=== PATIENT | female | born 1985 | race American Indian/Alaskan Native ===

== ENCOUNTER 2016-11-20 06:17 | Emergency (ER) | payer MEDICAID ==
[2016-11-20] MEDS ORDERED: D5NS 0.2% 1,000 ML IV ONE (06:44)
--- NOTE | 2016-11-20 11:38 | Emergency Department Report ---
HPI - General Chief Complaint: Sickle Cell Crisis Time Seen by Provider: 11/20/16 11:15 - HPI HPI: 31-year-old -[place] female who is well-known to myself and this department presents with complaint of pain all over that she believes is related to sickle cell pain crisis. She says that the pain is worse than usual because she has just started her cycle. She denies any fever, nausea, vomiting but does have a cough and some occasional shortness of breath. No recent travel or sick contacts at home. She denies tobacco abuse. She has a history of hypertension, anemia but has never had an MRIs, CVA, PE/DVT. She's been taking her home pain medications as well as folic Axid and hydroxyurea without any relief. Her primary care doctor is Dr. Torres. ED Past Medical Hx - Past Medical History Previous Medical History?: Yes Hx Hypertension: Yes (Since 2001) Hx Heart Attack/AMI: No Hx Congestive Heart Failure: No Hx Diabetes: No Hx Sickle Cell Disease: Yes Hx Arthritis: Yes Hx Asthma: No Hx COPD: No Hx HIV: No Additional medical history: ANEMIA, multiple port infections - Surgical History Hx Cholecystectomy: Yes Additional Surgical History: , port removed June 2014. PICC line left upper arm (11/19/2014). Most recent port 2 weeks ago her right subclavian. - Social History Smoking Status: Current Every Day Smoker Substance Use Type: Prescribed - Medications Home Medications: Home Medications Medication Instructions Recorded Confirmed Last Taken Type Lisinopril [Zestril TAB] 40 mg PO QDAY 04/01/14 11/01/15 11/01/15 History amLODIPine [Norvasc] 10 mg PO DAILY 04/01/14 11/01/15 11/01/15 History cloNIDine [Catapres] 0.2 mg PO BID 04/01/14 11/01/15 11/01/15 History Folic Acid [Folvite] 1 mg PO DAILY #30 tablet 05/18/15 11/01/15 11/01/15 Rx Lisinopril [Zestril TAB] 40 mg PO QDAY #30 tablet 11/08/15 11/20/16 06/18/16 Rx Folic Acid [Folvite] 1 mg PO DAILY #30 tablet 07/29/16 11/20/16 Unknown Rx Hydroxyurea [Hydrea] 500 mg PO QDAY #60 capsule 07/29/16 11/20/16 Unknown Rx Multivitamin Tab [Multiple Vitamin 1 each PO QDAY tablet 07/29/16 11/20/16 Unknown Rx TAB (Theragran)] Sennosides Tab [Senokot] 17.2 mg PO QHS #20 tablet 07/29/16 11/20/16 Unknown Rx amLODIPine [Norvasc] 10 mg PO QDAY #30 tablet 07/29/16 11/20/16 Unknown Rx cloNIDine [Catapres] 0.2 mg PO Q24HR #20 tablet 07/29/16 11/20/16 Unknown Rx oxyCODONE [Roxicodone] 5 mg PO Q6HR PRN #6 tablet 10/29/16 11/20/16 Unknown Rx Ketorolac [Toradol] 10 mg PO Q6H PRN #20 tablet 11/07/16 11/20/16 Unknown Rx oxyCODONE [Roxicodone] 5 mg PO Q6HR PRN #6 tablet 11/07/16 11/20/16 Unknown Rx oxyCODONE /ACETAMINOPHEN [Percocet 1 tab PO Q6HR PRN #12 tablet 11/20/16 Unknown Rx 5/325] ED Review of Systems ROS: Stated complaint: SICKLE CELL PAIN Other details as noted in HPI Comment: All other systems reviewed and negative Constitutional: denies: chills, fever Eyes: denies: eye pain, eye discharge, vision change ENT: denies: ear pain, throat pain Respiratory: denies: cough, shortness of breath, wheezing Cardiovascular: denies: chest pain, palpitations Gastrointestinal: denies: abdominal pain, nausea, diarrhea Genitourinary: denies: urgency, dysuria, discharge Musculoskeletal: back pain, arthralgia, myalgia. denies: joint swelling Skin: denies: rash, lesions Neurological: denies: headache, weakness, paresthesias Physical Exam - Physical Exam Vital Signs: Vital Signs 11/20/16 06:41 Temperature 98.8 F Pulse Rate 83 Blood Pressure 171/93 O2 Sat by Pulse 97 Oximetry Physical Exam: GENERAL: The patient is well-developed well-nourished. HEENT: Normocephalic. Atraumatic. Extraocular motions are intact. Patient has moist mucous membranes. Pupils equal reactive to light bilaterally. NECK: Supple. Trachea is midline. CHEST/LUNGS: Clear to auscultation. There is no respiratory distress noted. HEART/CARDIOVASCULAR: Regular. There is no tachycardia. There is no gallop rub or murmur. ABDOMEN: Abdomen is soft, nontender. Patient has normal bowel sounds. There is no abdominal distention. SKIN: There is no rash. There is no edema. There is no diaphoresis. NEURO: The patient is awake, alert, and oriented. The patient is cooperative. The patient has no focal neurologic deficits. The patient has normal speech. MUSCULOSKELETAL: There is no tenderness or deformity. There is no limitation range of motion. There is no evidence of acute injury. ED Course Vital Signs 11/20/16 06:41 Temperature 98.8 F Pulse Rate 83 Blood Pressure 171/93 O2 Sat by Pulse 97 Oximetry ED Medical Decision Making - Lab Data Result diagrams: 11/20/16 14:40 11/20/16 11:47 - Medical Decision Making 31-year-old female presents to the emergency department with generalized body aches and pains that she feels is consistent with her previous sickle cell pain crisis. Patient's vital signs the been stable throughout her ED course including being afebrile. She did have some hypertension but that came down with some Catapres and pain control. Patient's labs show a hemoglobin of 8, a white blood cell count of 16,000, and a reticulocyte count of 20. While these labs do not appear to be normal, they are consistent with the patient's previous visits. Patient's metabolic panel did not show anything significant. Patient does not appear to have any emergent condition such as chest crisis or aplastic anemia. I spoke with the patient regarding her labs but the patient says that she is feeling much better and asking for discharge home. She has been encouraged to follow up with Dr. Torres but to return to the emergency department with any worsening of her symptoms or any acute distress. - Differential Diagnosis sickle cell pain crisis, chest crisis, fibromyalgia Critical Care Time: No Critical care attestation.: If time is entered above; I have spent that time in minutes in the direct care of this critically ill patient, excluding procedure time. ED Disposition Clinical Impression: Sickle cell pain crisis Hypertension Qualifiers: Hypertension type: essential hypertension Qualified Code(s): I10 - Essential ( primary) hypertension Disposition: DISCHARGED TO HOME OR SELFCARE Is pt being admited?: No Condition: Stable Instructions: Hypertension (ED), Sickle Cell Crisis (ED) Additional Instructions: Please follow-up with Dr. Torres or Dr. Watts, whoever you consider to be your primary care doctor or trauma manager. Return to the emergency department with any worsening of your symptoms or any acute distress. You've been prescribed a medication that is sedating. Therefore this medication cannot be mixed with alcohol, or taken prior to driving, working, or being responsible for children. Try to stay away from foods are high in salt and caffeinated products to assist with your blood pressure. Keep a blood pressure log. Continue with her normally prescribed medications. Prescriptions: oxyCODONE /ACETAMINOPHEN [Percocet 5/325] 1 tab PO Q6HR PRN #12 tablet PRN Reason: Pain Referrals: SEMAJ WATTS DO [Primary Care Provider] - 3-5 Days Time of Disposition: 15:42
[2016-11-20] MEDS ORDERED: BENADRYL ONE (12:00)
[2016-11-20] MEDS ORDERED: DILAUDID IV ONE ×2 (12:00→12:50)
--- NOTE | 2016-11-20 12:04 | XRay Report ---
PORTABLE CHEST INDICATION: Shortness of breath. COMPARISON: 11/07/2016 FINDINGS: Portable, frontal chest radiograph demonstrates poorer inspiration with increased bronchovascular crowding. Cardiomegaly/exaggerated cardiomediastinal silhouette. Stable right chest port tip about the cavoatrial junction. No large pleural effusions. Stable bones with subtle humeral head sclerosis suspected without collapse on the right. 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 Please correlate. Thank you for the opportunity to participate in this patient's care.
[2016-11-20 12:17] LABS: Anion Gap 20 mmol/L; Blood Urea Nitrogen 9 mg/dL (7-17); Calcium 8.9 mg/dL (8.4-10.2); Carbon Dioxide 21 mmol/L (22-30); Chloride 101.7 mmol/L (98-107); Glucose 93 mg/dL (65-100); Potassium 4.5 mmol/L (3.6-5.0); Sodium 138 mmol/L (137-145)
[2016-11-20] MEDS ORDERED: BENADRYL IV ONE (12:48)
[2016-11-20] MEDS ORDERED: CATAPRES PO ONE (13:00)
[2016-11-20] MEDS ORDERED: CATAPRES ONE (13:28)
[2016-11-20 15:02] LABS: Hematocrit 23.8 % (30.3-42.9); Mean Corpuscular HGB Conc 34 % (30-34); Mean Corpuscular Hemoglobin 32 pg (28-32); Mean Corpuscular Volume 95 fl (79-97); Platelet Count 459 K/mm3 (140-440); Red Blood Count 2.52 M/mm3 (3.65-5.03); White Blood Count 16.1 K/mm3 (4.5-11.0)
[2016-11-20 15:10] LABS: Red Cell Distribution Width 24.4 % (13.2-15.2)
[2016-11-20 15:26] LABS: Reticulocyte % 20.11 % (0.78-2.58)
[2016-11-20 15:42] VITALS: BP 162/88
[2016-11-20] MEDS ORDERED: FLUSH HEPARIN IV ONE ×2 (15:45→16:09)
[2016-11-20 16:20] LABS: Basophils % (Manual) 0 % (0.0-1.8); Blastocytes % (Manual) 0 %
[2016-11-20 16:21] LABS: Anisocytosis 1+; Diff Status Complete; Elliptocytes 1+; Large Platelets Few; Polychromasia 1+; Sickle Cells Few
== END 2016-11-20 16:11 | disposition home or self-care (01) ==
LOC: ED 06:17
DX: D57.00 Hb-SS disease with crisis, unspecified (principal); I10 Essential (primary) hypertension; M19.90 Unspecified osteoarthritis, unspecified site; D64.9 Anemia, unspecified; F17.200 Nicotine dependence, unspecified, uncomplicated
CPT/HCPCS: 36415; 71010; 80048; 85007; 85025; 85045; 96361; 96374; 96375; 96376; 99284; J1170; J1200; J1642

== ENCOUNTER 2016-11-24 07:30 | Emergency (ER) | payer MEDICAID ==
[2016-11-24] MEDS ORDERED: D5NS 0.2% 1,000 ML IV ONE (08:15)
[2016-11-24] MEDS ORDERED: BENADRYL IV ONE (14:26)
[2016-11-24] MEDS ORDERED: DILAUDID IV ONE ×4 (14:26→16:19)
[2016-11-24] MEDS ORDERED: ZOFRAN IV ONE (14:27)
[2016-11-24 15:26] VITALS: BP 129/74
[2016-11-24 15:52] LABS: Basophils % (Auto) 1.4 % (0.0-1.8); Hemoglobin 8.4 gm/dl (10.1-14.3); Mean Corpuscular HGB Conc 34 % (30-34); Mean Corpuscular Hemoglobin 31 pg (28-32); Mean Corpuscular Volume 93 fl (79-97); Platelet Count 418 K/mm3 (140-440); Red Blood Count 2.69 M/mm3 (3.65-5.03); Reticulocyte % 13.65 % (0.78-2.58); White Blood Count 16.3 K/mm3 (4.5-11.0)
[2016-11-24 15:53] LABS: Red Cell Distribution Width 20.1 % (13.2-15.2)
--- NOTE | 2016-11-24 16:59 | Emergency Department Report ---
HPI - General Chief Complaint: Sickle Cell Crisis Time Seen by Provider: 11/24/16 15:05 - HPI HPI: Chief complaint: Sickle cell crisis pain HPI: Patient who is well-known to this emergency department complains of sickle cell crisis pain to her lower back and legs that is typical of her sickle cell crisis that started yesterday. Patient denies any other symptoms. No cough or cold fever or nausea vomiting or diarrhea. Patient states she took a Percocet 10 without relief at home. Mode of arrival: private car Source: Patient old chart Began: Yesterday Duration: One day Context: See above Quality: Typical crisis pain Severity: 10 out of 10 Improved with: No improvement with Percocet Worsened with: Nothing Associated signs and symptoms: See above ED Past Medical Hx - Past Medical History Previous Medical History?: Yes Hx Hypertension: Yes (Since 2001) Hx Sickle Cell Disease: Yes Hx Arthritis: Yes Additional medical history: ANEMIA, multiple port infections - Surgical History Past Surgical History?: Yes Hx Cholecystectomy: Yes Additional Surgical History: , port removed June 2014. PICC line left upper arm (11/19/2014). Most recent port 2 weeks ago her right subclavian. - Social History Smoking Status: Never Smoker Substance Use Type: Prescribed - Medications Home Medications: Home Medications Medication Instructions Recorded Confirmed Last Taken Type Lisinopril [Zestril TAB] 40 mg PO QDAY 04/01/14 11/01/15 11/01/15 History amLODIPine [Norvasc] 10 mg PO DAILY 04/01/14 11/01/15 11/01/15 History cloNIDine [Catapres] 0.2 mg PO BID 04/01/14 11/01/15 11/01/15 History Folic Acid [Folvite] 1 mg PO DAILY #30 tablet 05/18/15 11/01/15 11/01/15 Rx Lisinopril [Zestril TAB] 40 mg PO QDAY #30 tablet 11/08/15 11/20/16 06/18/16 Rx Folic Acid [Folvite] 1 mg PO DAILY #30 tablet 07/29/16 11/20/16 Unknown Rx Hydroxyurea [Hydrea] 500 mg PO QDAY #60 capsule 07/29/16 11/20/16 Unknown Rx Multivitamin Tab [Multiple Vitamin 1 each PO QDAY tablet 07/29/16 11/20/16 Unknown Rx TAB (Theragran)] Sennosides Tab [Senokot] 17.2 mg PO QHS #20 tablet 07/29/16 11/20/16 Unknown Rx amLODIPine [Norvasc] 10 mg PO QDAY #30 tablet 07/29/16 11/20/16 Unknown Rx cloNIDine [Catapres] 0.2 mg PO Q24HR #20 tablet 07/29/16 11/20/16 Unknown Rx oxyCODONE [Roxicodone] 5 mg PO Q6HR PRN #6 tablet 10/29/16 11/20/16 Unknown Rx Ketorolac [Toradol] 10 mg PO Q6H PRN #20 tablet 11/07/16 11/20/16 Unknown Rx oxyCODONE [Roxicodone] 5 mg PO Q6HR PRN #6 tablet 11/07/16 11/20/16 Unknown Rx oxyCODONE /ACETAMINOPHEN [Percocet 1 tab PO Q6HR PRN #12 tablet 11/20/16 Unknown Rx 5/325] ED Review of Systems ROS: Stated complaint: SICKLE CELL PAIN Other details as noted in HPI ROS Constitutional: No fever ENT: No uri symptoms Cardiovascular: No chest pain Respiratory: No sob or cough GI: No nausea vomiting or diarrhea : No dysuria frequency or urgency, Skin: No rash Neuro: No focal weakness or numbness Psych: No depression Dharmesh/lymph: No edema Physical Exam - Physical Exam Vital Signs: Vital Signs 11/24/16 11/24/16 08:11 14:30 Temperature 98.7 F Pulse Rate 84 Respiratory 18 30 H Rate Blood Pressure 178/99 O2 Sat by Pulse 96 Oximetry Physical Exam: GENERAL: The patient is an obese -[place]alese female no acute distress. HEENT: Normocephalic. Atraumatic. Extraocular motions are intact. Patient has moist mucous membranes. NECK: Supple. No meningitic signs are noted. There is no adenopathy noted. CHEST/LUNGS: Clear to auscultation. There is no respiratory distress noted. Port has been accessed. HEART/CARDIOVASCULAR: Regular. There is no tachycardia. There is no gallop rub or murmur. ABDOMEN: Abdomen is soft, nontender. Patient has normal bowel sounds. There is no abdominal distention. SKIN: There is no rash. There is no edema. There is no diaphoresis. NEURO: The patient is awake, alert, and oriented. The patient is cooperative. The patient has no focal neurologic deficits. The patient has normal speech. MUSCULOSKELETAL: There is no tenderness or deformity. There is no limitation range of motion. There is no evidence of acute injury. ED Course Vital Signs 11/24/16 11/24/16 08:11 14:30 Temperature 98.7 F Pulse Rate 84 Respiratory 18 30 H Rate Blood Pressure 178/99 O2 Sat by Pulse 96 Oximetry - Reevaluation(s) Reevaluation #1: 11/24/16 15:15 Is given 1 mg of Dilaudid IV, 4 mg of Zofran IV and 50 mg of Benadryl IV prior to my evaluation. Patient is still having pain and a second 1 mg of IV Dilaudid was given. Reevaluation #2: 11/24/16 17:00 Patient given a total of 5 mg of Dilaudid with improvement. ED Medical Decision Making - Lab Data Result diagrams: 11/24/16 15:30 Laboratory Tests 11/24/16 15:30 Percent Retic 13.65 H Critical care attestation.: If time is entered above; I have spent that time in minutes in the direct care of this critically ill patient, excluding procedure time. ED Disposition Clinical Impression: Anemia, sickle cell with crisis Disposition: DISCHARGED TO HOME OR SELFCARE Is pt being admited?: No Does the pt Need Aspirin: No Condition: Stable Instructions: Sickle Cell Crisis (ED) Referrals: PRIMARY CARE, [Primary Care Provider] - 3-5 Days Time of Disposition: 17:00
[2016-11-24] MEDS ORDERED: FLUSH HEPARIN IV ONE (17:06)
== END 2016-11-24 17:19 | disposition home or self-care (01) ==
LOC: ED 07:30
DX: D64.9 Anemia, unspecified (principal); D57.00 Hb-SS disease with crisis, unspecified; I10 Essential (primary) hypertension; M19.90 Unspecified osteoarthritis, unspecified site
CPT/HCPCS: 36415; 85025; 85045; 96361; 96374; 96375; 96376; 99283; J1170; J1200; J1642; J2405

== ENCOUNTER 2016-12-02 09:20 | Emergency (ER) | payer MEDICAID ==
[2016-12-02] MEDS ORDERED: D5NS 0.2% 1,000 ML IV ONE (09:32)
--- NOTE | 2016-12-02 09:37 | Emergency Department Report ---
Chief Complaint: Sickle Cell Crisis Stated Complaint: SICKLE CELL CRISIS Time Seen by Provider: 12/02/16 09:25 - HPI History of Present Illness: Patient is a 31-year-old female with sickle cell disease presents for generalized body ache times one day. Patient states yesterday she began has been generalized body aches patient states she took Percocet with no relief. Patient states he has a history of hypertension and takes 3 medications for blood pressure she is out of her lisinopril. Patient denies fevers/chills/deformities S chest pains or shortness of breath/ headache/blurry vision, dizziness - ROS Review of Systems: As noted in HPI - Exam Vital Signs: Vital Signs 12/02/16 09:23 Temperature 98.3 F Pulse Rate 85 Respiratory 19 Rate Blood Pressure 177/103 O2 Sat by Pulse 100 Oximetry Physical Exam: GENERAL: Alert and oriented x3, no apparent distress, Normal Gait, atraumatic. NECK: Supple. Non edematous, No carotid bruits. No lymphadenopathy or thyromegaly. LUNGS: Symetrical with respiration, No wheezing, no rales or crackles, CTAB. HEART: S1, S2 present, regular rate and rhythm without murmur, no rubs, no gallops. ABDOMEN: No organomegaly was noted,Positive bowel sounds, soft, and non- distended. . Nontender to palpation on all Quadrants, NO CVA tenderness. EXTREMITIES/MUSCULOSKELETAL: No cyanosis, clubbing, rash, lesions or edema. Full ROM bilaterally. UE/LE Pulses 2+ bilaterally. LE and UE 5+ strength bilaterally SKIN: Warm and dry, No lesions, No ulceration or induration present. MSE screening note: Focused history and physical exam performed. Due to findings the following was ordered: ED Medical Decision Making - Medical Decision Making Patient is known acute distress. Vital signs stable. Labs ordered. Patient waiting to be sent to the main ED to see ED physician. ED Disposition for MSE Condition: Stable
[2016-12-02 10:11] LABS: Bacteria,Urine 1+ /HPF (Negative); Bilirubin,Urine NEG (Negative); Blood,Urine NEG (Negative); Ketones,Urine NEG (Negative); Leukocyte Esterase,Urine NEG (Negative); Mucus,Urine FEW /HPF; Nitrite,Urine NEG (Negative); WBC,Urine < 1.0 /HPF (0.0-6.0)
[2016-12-02] MEDS ORDERED: FLUSH HEPARIN IV ONE ×2 (12:06→14:53)
[2016-12-02] MEDS ORDERED: TORADOL IV ONE (12:27)
[2016-12-02] MEDS ORDERED: ZOFRAN IV ONE (12:27)
[2016-12-02] MEDS ORDERED: BENADRYL IV ONE (12:27)
[2016-12-02] MEDS ORDERED: DILAUDID IV ONE ×3 (12:27→14:09)
[2016-12-02] MEDS ORDERED: CATAPRES PO ONE (12:28)
[2016-12-02 12:39] LABS: Hematocrit 27.3 % (30.3-42.9); Mean Corpuscular HGB Conc 33 % (30-34); Mean Corpuscular Hemoglobin 32 pg (28-32); Mean Corpuscular Volume 97 fl (79-97); Platelet Count 452 K/mm3 (140-440); Reticulocyte % 19.41 % (0.78-2.58)
[2016-12-02 12:51] LABS: Red Cell Distribution Width 21.9 % (13.2-15.2); White Blood Count 20.6 K/mm3 (4.5-11.0)
--- NOTE | 2016-12-02 12:55 | Emergency Department Report ---
HPI - General Chief Complaint: Sickle Cell Crisis Time Seen by Provider: 12/02/16 12:24 - HPI HPI: Chief complaint: Sickle cell crisis HPI: Patient is a 31-year-old female with a history of sickle cell disease who presents today with sickle cell crisis pain since yesterday. Patient states the pain is intermittent back and legs and knees and is typical of her sickle cell pain should states she took her Percocet without relief. Patient states she also is out of her blood pressure medication but she did take her lisinopril this morning and her clonidine. Patient denies fever, nausea, vomiting or diarrhea. Patient denies chest or abdominal pain. Patient is well- known to me as she is a frequent visitor to the emergency department here. Mode of arrival: private car Source: Patient old chart Began: Yesterday Duration: Continuous Context: See above Quality: Typical sickle cell crisis pain Severity: 9 out of 10 Improved with: No improvement with Percocet Worsened with: Nothing Associated signs and symptoms: See above ED Past Medical Hx - Past Medical History Hx Hypertension: Yes (Since 2001) Hx Sickle Cell Disease: Yes Hx Arthritis: Yes Additional medical history: ANEMIA, multiple port infections - Surgical History Hx Cholecystectomy: Yes Additional Surgical History: , port removed June 2014. PICC line left upper arm (11/19/2014). Most recent port 2 weeks ago her right subclavian. - Social History Smoking Status: Never Smoker Substance Use Type: Prescribed - Medications Home Medications: Home Medications Medication Instructions Recorded Confirmed Last Taken Type Lisinopril [Zestril TAB] 40 mg PO QDAY 04/01/14 11/01/15 11/01/15 History amLODIPine [Norvasc] 10 mg PO DAILY 04/01/14 11/01/15 11/01/15 History cloNIDine [Catapres] 0.2 mg PO BID 04/01/14 11/01/15 11/01/15 History Folic Acid [Folvite] 1 mg PO DAILY #30 tablet 05/18/15 11/01/15 11/01/15 Rx Folic Acid [Folvite] 1 mg PO DAILY #30 tablet 07/29/16 11/20/16 Unknown Rx Hydroxyurea [Hydrea] 500 mg PO QDAY #60 capsule 07/29/16 11/20/16 Unknown Rx Multivitamin Tab [Multiple Vitamin 1 each PO QDAY tablet 07/29/16 11/20/16 Unknown Rx TAB (Theragran)] Sennosides Tab [Senokot] 17.2 mg PO QHS #20 tablet 07/29/16 11/20/16 Unknown Rx oxyCODONE [Roxicodone] 5 mg PO Q6HR PRN #6 tablet 10/29/16 11/20/16 Unknown Rx Ketorolac [Toradol] 10 mg PO Q6H PRN #20 tablet 11/07/16 11/20/16 Unknown Rx oxyCODONE [Roxicodone] 5 mg PO Q6HR PRN #6 tablet 11/07/16 11/20/16 Unknown Rx oxyCODONE /ACETAMINOPHEN [Percocet 1 tab PO Q6HR PRN #12 tablet 11/20/16 Unknown Rx 5/325] Lisinopril [Zestril TAB] 40 mg PO QDAY #30 tablet 12/02/16 Unknown Rx Oxycodone HCl/Acetaminophen 1 each PO Q6HR PRN #14 tablet 12/02/16 Unknown Rx [Percocet 10/325 mg] amLODIPine [Norvasc] 10 mg PO QDAY #30 tablet 12/02/16 Unknown Rx cloNIDine [Catapres] 0.2 mg PO Q24HR #20 tablet 12/02/16 Unknown Rx ED Review of Systems ROS: Stated complaint: SICKLE CELL CRISIS Other details as noted in HPI ROS Constitutional: No fever ENT: No uri symptoms Cardiovascular: No chest pain Respiratory: No sob or cough GI: No nausea vomiting or diarrhea : No dysuria frequency or urgency, Skin: No rash Neuro: No focal weakness or numbness Psych: No depression Dharmesh/lymph: No edema Physical Exam - Physical Exam Vital Signs: Vital Signs 12/02/16 12/02/16 12/02/16 09:23 12:17 12:20 Temperature 98.3 F Pulse Rate 85 Respiratory 19 Rate Blood Pressure 177/103 200/102 Blood Pressure [Left] O2 Sat by Pulse 100 92 98 Oximetry 12/02/16 12/02/16 12:25 12:29 Temperature 98.5 F Pulse Rate 82 Respiratory 14 14 Rate Blood Pressure Blood Pressure 200/107 [Left] O2 Sat by Pulse 98 Oximetry Physical Exam: GENERAL: The patient is an obese -Stateless female some distress. HEENT: Normocephalic. Atraumatic. Extraocular motions are intact. Patient has moist mucous membranes. NECK: Supple. No meningitic signs are noted. There is no adenopathy noted. CHEST/LUNGS: Clear to auscultation. There is no respiratory distress noted. Poor to right anterior chest wall. HEART/CARDIOVASCULAR: Regular. There is no tachycardia. There is no gallop rub or murmur. ABDOMEN: Abdomen is soft, nontender. Patient has normal bowel sounds. There is no abdominal distention. SKIN: There is no rash. There is no edema. There is no diaphoresis. NEURO: The patient is awake, alert, and oriented. The patient is cooperative. The patient has no focal neurologic deficits. The patient has normal speech. MUSCULOSKELETAL: There is no tenderness or deformity. There is no limitation range of motion. There is no evidence of acute injury. ED Course Vital Signs 12/02/16 12/02/16 12/02/16 09:23 12:17 12:20 Temperature 98.3 F Pulse Rate 85 Respiratory 19 Rate Blood Pressure 177/103 200/102 Blood Pressure [Left] O2 Sat by Pulse 100 92 98 Oximetry 12/02/16 12/02/16 12:25 12:29 Temperature 98.5 F Pulse Rate 82 Respiratory 14 14 Rate Blood Pressure Blood Pressure 200/107 [Left] O2 Sat by Pulse 98 Oximetry - Reevaluation(s) Reevaluation #1: 12/02/16 12:56 Patient given IV fluids, 2 mg of IV Dilaudid, 25 mg of IV Benadryl, 4 mg of IV Zofran and 30 mg IV Toradol. Reevaluation #2: 12/02/16 13:55 Patient given 2 more doses of Dilaudid with improvement. ED Medical Decision Making - Lab Data Result diagrams: 12/02/16 09:33 Laboratory Tests 12/02/16 09:33 Percent Retic 19.41 H Critical care attestation.: If time is entered above; I have spent that time in minutes in the direct care of this critically ill patient, excluding procedure time. ED Disposition Clinical Impression: Sickle cell pain crisis Disposition: DISCHARGED TO HOME OR SELFCARE Is pt being admited?: No Does the pt Need Aspirin: No Condition: Stable Instructions: Sickle Cell Crisis (ED) Prescriptions: Lisinopril [Zestril TAB] 40 mg PO QDAY #30 tablet Oxycodone HCl/Acetaminophen [Percocet 10/325 mg] 1 each PO Q6HR PRN #14 tablet PRN Reason: Pain amLODIPine [Norvasc] 10 mg PO QDAY #30 tablet cloNIDine [Catapres] 0.2 mg PO Q24HR #20 tablet Referrals: PRIMARY CARE, [Primary Care Provider] - 3-5 Days Time of Disposition: 13:55
--- NOTE | 2016-12-02 13:17 | Admit Criteria Form ---
Admission Criteria Documentation: SICKLE CELL DISEASE Clinical Indications for Admission to Inpatient Care (Place 'X' for any and all applicable criteria): Admission is indicated for ANY ONE of the following(1)(2)(3)(4)(5): [X]I. Inpatient admission required rather than observation care because of ANY ONE of the following: [ ]a) Altered mental status [ ]b) High fever or infection requiring inpatient admission as indicated by ANY ONE of the following: [ ]A. Appropriate outpatient observation care antimicrobial treatment unavailable, not effective, or not appropriate for infection [ ]B. Documented bacteremia [ ]C. Temp >104.9F (40.5C) (oral) [ ]D. Temp >103.1F (oral) or <96.8F(rectal) that does not respond to all emergency treatment measures [ ]c) Supplemental O2 or respiratory therapy for over 24 h that are performable only in acute inpatient setting [ ]d) Continuous parenteral narcoticsother major pain intervention for >24 h performable only in acute inpatient setting. [ ]e) Exchange transfusion [X ]f) Other condition, treatment or monitoring requiring inpatient admission [ ]II. Acute chest syndrome indicated by ALL of the following (10): [ ]a) New alveolar infiltrate involving at least one lung segment [ ]b) Associated pulmonary symptoms or findings as indicated by ANY ONE of the following: [ ]i) Chest pain [ ]ii) Hypoxemia [ ]iii) Tachypnea/dyspnea [ ]iv) Wheezing [ ]v) Cough [ ]vi) Sputum production [ ]III. Significant hypoxemia or acidosis (more severe than baseline) [ ]IV. Emergent surgery needed (eg, acute cholecystitis) [ ]V. -related complication(11) [ ]. Splenic or hepatic sequestration(12) [ ]VII. Aplastic crisis [ ]VIII. Priapism or other vascular complication(13) [ ]IX. Traumatic hyphema [A](14) [ ]X. Underlying condition requiring hospitalization (eg, osteomyelitis) [ ]XI. Signs or symptoms of central nervous system injury indicated by ANY ONE of the following: [ ]a) Stroke(9) [ ]b) Seizure [ ]c) Other significant central nervous system symptom or event [ ]XII. Acute renal failure Extended stay beyond goal length of stay may be needed for: [ ]a) Inadequate pain control [ ]b) Acute chest syndrome [ ]c) Sequestration or aplastic crisis (12) [ ]d) Pneumonia and asthma exacerbation [ ]e) Neurologic or vascular complications (25) [ ]f) Infection (eg, osteomyelitis) that requires ongoing treatment) The original [facility] [employer] content created by [facility] has been revised. The portions of the content which have been revised are identified through the use of italic text or in bold, and [facility] has neither reviewed nor approved the modified material. All other unmodified content is copyright [facility]. Please see references footnoted in the original [facility] edition 2016 Admission Criteria Met: Pending
[2016-12-02 14:47] LABS: Basophils % (Manual) 0.5 % (0.0-1.8); Blastocytes % (Manual) 0 %; Eosinophils % (Manual) 0.5 % (0.0-4.3); Total Cells Counted Percent 7.5
[2016-12-02 14:48] LABS: Anisocytosis 1+
[2016-12-02 14:49] LABS: Elliptocytes 1+; Poikilocytosis 1+; Sickle Cells 1+
[2016-12-02 14:50] LABS: Diff Status Complete; Platelet Estimate Consistent w Auto; Target Cells Few
[2016-12-02 15:24] VITALS: BP 165/90
== END 2016-12-02 15:15 | disposition home or self-care (01) ==
LOC: ED 09:20
DX: D57.00 Hb-SS disease with crisis, unspecified (principal); M19.90 Unspecified osteoarthritis, unspecified site; D64.9 Anemia, unspecified; I10 Essential (primary) hypertension
CPT/HCPCS: 36415; 81001; 85007; 85025; 85045; 96361; 96374; 96375; 96376; 99284; J1170; J1200; J1642; J1885; J2405

== ENCOUNTER 2016-12-12 11:47 | Emergency (ER) | payer MEDICAID ==
[2016-12-12] MEDS ORDERED: D5NS 0.2% 1,000 ML IV ONE (20:05)
--- NOTE | 2016-12-12 20:24 | Emergency Department Report ---
ED General Adult HPI - General Chief complaint: Sickle Cell Crisis Stated complaint: SICKLE CELL CRISIS Time Seen by Provider: 12/12/16 20:11 Source: patient Mode of arrival: Ambulatory Limitations: No Limitations - History of Present Illness Initial comments: This is a 31-year-old individual well known to the ED staff. She presents today with what she describes as her typical sickle cell pains. She indicates that she is having right leg pain since yesterday. The pain is mostly in the 10 area. She denies any specific trauma she denies fevers she reports she's had a little bit of diarrhea. She states this is fairly typical when she is on her menstrual cycle which she has currently. She denies any abdominal pain states she still been able to stay well-hydrated in general. She is taking Percocet at home for her pains with moderate control. Easily switched to a new senior analysis specialist and is feeling that she is having more success dealing with this physician. Onset/Timin -: days(s) Location: lower extremity Radiation: non-radiation Quality: aching Consistency: constant Improves with: other (warm soaks) Worsens with: none Associated Symptoms: denies: chest pain, cough, headaches, loss of appetite, malaise, nausea/vomiting, shortness of breath Treatments Prior to Arrival: heat therapy - Related Data Previous Rx's Medication Instructions Recorded Last Taken Type Folic Acid [Folvite] 1 mg PO DAILY #30 tablet 07/29/16 Unknown Rx Hydroxyurea [Hydrea] 500 mg PO QDAY #60 capsule 07/29/16 Unknown Rx oxyCODONE [Roxicodone] 5 mg PO Q6HR PRN #6 tablet 11/07/16 Unknown Rx Lisinopril [Zestril TAB] 40 mg PO QDAY #30 tablet 12/02/16 Unknown Rx Oxycodone HCl/Acetaminophen 1 each PO Q6HR PRN #14 tablet 12/02/16 Unknown Rx [Percocet 10/325 mg] amLODIPine [Norvasc] 10 mg PO QDAY #30 tablet 12/02/16 Unknown Rx cloNIDine [Catapres] 0.2 mg PO Q24HR #20 tablet 12/02/16 Unknown Rx Allergies Allergy/AdvReac Type Severity Reaction Status Date / Time No Known Allergies Allergy Verified 12/12/16 12:41 ED Review of Systems ROS: Stated complaint: SICKLE CELL CRISIS Other details as noted in HPI Constitutional: denies: chills, fever Eyes: denies: eye pain, eye discharge, vision change ENT: denies: ear pain, throat pain Respiratory: denies: cough, shortness of breath, wheezing Cardiovascular: denies: chest pain, palpitations Endocrine: no symptoms reported Gastrointestinal: denies: abdominal pain, nausea, diarrhea Genitourinary: denies: urgency, dysuria, discharge Musculoskeletal: other (R leg pains). denies: back pain, joint swelling, arthralgia Skin: denies: rash, lesions Neurological: denies: headache, weakness, paresthesias Psychiatric: denies: anxiety, depression Hematological/Lymphatic: denies: easy bleeding, easy bruising ED Past Medical Hx - Past Medical History Hx Hypertension: Yes (Since 2001) Hx Heart Attack/AMI: No Hx Congestive Heart Failure: No Hx Diabetes: No Hx Sickle Cell Disease: Yes Hx Arthritis: Yes Hx Asthma: No Hx COPD: No Hx HIV: No Additional medical history: ANEMIA, multiple port infections - Surgical History Hx Cholecystectomy: Yes Additional Surgical History: , port removed June 2014. PICC line left upper arm (11/19/2014). Most recent port 2 weeks ago her right subclavian. - Social History Smoking Status: Never Smoker Substance Use Type: Prescribed - Medications Home Medications: Home Medications Medication Instructions Recorded Confirmed Last Taken Type Folic Acid [Folvite] 1 mg PO DAILY #30 tablet 07/29/16 12/02/16 Unknown Rx Hydroxyurea [Hydrea] 500 mg PO QDAY #60 capsule 07/29/16 12/02/16 Unknown Rx oxyCODONE [Roxicodone] 5 mg PO Q6HR PRN #6 tablet 11/07/16 12/02/16 Unknown Rx Lisinopril [Zestril TAB] 40 mg PO QDAY #30 tablet 12/02/16 Unknown Rx Oxycodone HCl/Acetaminophen 1 each PO Q6HR PRN #14 tablet 12/02/16 Unknown Rx [Percocet 10/325 mg] amLODIPine [Norvasc] 10 mg PO QDAY #30 tablet 12/02/16 Unknown Rx cloNIDine [Catapres] 0.2 mg PO Q24HR #20 tablet 12/02/16 Unknown Rx ED Physical Exam - General Limitations: No Limitations General appearance: alert, in distress (mild due to pains) - Head Head exam: Present: atraumatic, normocephalic - Eye Eye exam: Present: normal appearance - ENT ENT exam: Present: mucous membranes moist - Neck Neck exam: Present: normal inspection - Respiratory Respiratory exam: Present: normal lung sounds bilaterally. Absent: respiratory distress, wheezes - Cardiovascular Cardiovascular Exam: Present: regular rate, normal rhythm. Absent: systolic murmur, diastolic murmur, rubs, gallop - GI/Abdominal GI/Abdominal exam: Present: soft, normal bowel sounds. Absent: tenderness - Extremities Exam Extremities exam: Present: other (moderate tenderness in the pretibial region on the right leg. Mild edema noted in this area as well no warmth no erythema. Equal distal pedal pulses are noted bilaterally. Normal strength noted in bilateral legs.) - Back Exam Back exam: Present: normal inspection. Absent: paraspinal tenderness, vertebral tenderness - Neurological Exam Neurological exam: Present: alert, oriented X3 - Psychiatric Psychiatric exam: Present: normal affect, normal mood - Skin Skin exam: Present: warm, dry, intact, normal color. Absent: rash ED Course Vital Signs 12/12/16 12/12/16 12/12/16 12:42 20:28 20:37 Temperature 98.7 F Pulse Rate 80 Respiratory 22 18 20 Rate Blood Pressure 158/88 Blood Pressure [Left] O2 Sat by Pulse 99 99 Oximetry 12/12/16 12/12/16 12/12/16 20:57 20:58 21:05 Temperature Pulse Rate 82 82 Respiratory 18 18 Rate Blood Pressure 185/86 Blood Pressure 185/86 [Left] O2 Sat by Pulse 98 Oximetry 12/12/16 12/12/16 12/12/16 21:58 22:28 22:40 Temperature Pulse Rate 78 Respiratory 18 18 18 Rate Blood Pressure Blood Pressure 161/81 [Left] O2 Sat by Pulse 97 Oximetry - Reevaluation(s) Reevaluation #1: 12/13/16 05:43 Labs were noted. Reticulocyte count is appropriate. Hemoglobin level is appropriate. This appears to be a pain management issue and not a crisis issue. Taj the patient to stay well-hydrated. She was given IV fluids here as well. I did tell the patient is willing to due to pain injections for her this was done as promised. She subjectively ports improvement. States that she still has pain. She does have access to Percocet at home. She again has her new senior analysis specialist to follow up with as well. Safe for home. I do not see underlying stressors on her exam that would suggest an underlying infection. ED Medical Decision Making - Lab Data Result diagrams: 12/12/16 20:12 Critical care attestation.: If time is entered above; I have spent that time in minutes in the direct care of this critically ill patient, excluding procedure time. ED Disposition Clinical Impression: Sickle-cell disease with pain Disposition: DISCHARGED TO HOME OR SELFCARE Is pt being admited?: No Does the pt Need Aspirin: No Condition: Stable Additional Instructions: Continue to try to stay well-hydrated at home. Continue with your current pain regimen. Follow up with your senior analysis specialist as necessary. Referrals: PRIMARY CAREMD [Primary Care Provider] - 3-5 Days Time of Disposition: 21:55
[2016-12-12 20:25] LABS: Basophils % (Auto) 0.8 % (0.0-1.8); Eosinophils % (Auto) 0.5 % (0.0-4.3); Hematocrit 27.7 % (30.3-42.9); Hemoglobin 9.1 gm/dl (10.1-14.3); Mean Corpuscular HGB Conc 33 % (30-34); Mean Corpuscular Hemoglobin 30 pg (28-32); Mean Corpuscular Volume 92 fl (79-97); Platelet Count 479 K/mm3 (140-440); Red Blood Count 3.03 M/mm3 (3.65-5.03); Reticulocyte % 7.73 % (0.78-2.58); White Blood Count 12.7 K/mm3 (4.5-11.0)
[2016-12-12] MEDS: NACL 0.9% 1000 ML 1,000 ML IV ONE (20:25)
[2016-12-12] MEDS: BENADRYL IV ONE (20:27)
[2016-12-12] MEDS: ZOFRAN IV ONE (20:28)
[2016-12-12] MEDS: DILAUDID IV ONE ×2 (20:28→21:58)
[2016-12-12] MEDS: D5NS 0.2% 1,000 ML IV ONE (20:36)
[2016-12-12] MEDS: CATAPRES PO ONE (21:05)
--- NOTE | 2016-12-12 21:34 | Admit Criteria Form ---
Admission Criteria Documentation: SICKLE CELL DISEASE Clinical Indications for Admission to Inpatient Care (Place 'X' for any and all applicable criteria): Admission is indicated for ANY ONE of the following(1)(2)(3)(4)(5): [ ]I. Inpatient admission required rather than observation care because of ANY ONE of the following: [ ]a) Altered mental status [ ]b) High fever or infection requiring inpatient admission as indicated by ANY ONE of the following: [ ]A. Appropriate outpatient observation care antimicrobial treatment unavailable, not effective, or not appropriate for infection [ ]B. Documented bacteremia [ ]C. Temp >104.9F (40.5C) (oral) [ ]D. Temp >103.1F (oral) or <96.8F(rectal) that does not respond to all emergency treatment measures [ ]c) Supplemental O2 or respiratory therapy for over 24 h that are performable only in acute inpatient setting [ ]d) Continuous parenteral narcoticsother major pain intervention for >24 h performable only in acute inpatient setting. [ ]e) Exchange transfusion [ ]f) Other condition, treatment or monitoring requiring inpatient admission [ ]II. Acute chest syndrome indicated by ALL of the following (10): [ ]a) New alveolar infiltrate involving at least one lung segment [ ]b) Associated pulmonary symptoms or findings as indicated by ANY ONE of the following: [ ]i) Chest pain [ ]ii) Hypoxemia [ ]iii) Tachypnea/dyspnea [ ]iv) Wheezing [ ]v) Cough [ ]vi) Sputum production [ ]III. Significant hypoxemia or acidosis (more severe than baseline) [ ]IV. Emergent surgery needed (eg, acute cholecystitis) [ ]V. -related complication(11) [ ]. Splenic or hepatic sequestration(12) [ ]VII. Aplastic crisis [ ]VIII. Priapism or other vascular complication(13) [ ]IX. Traumatic hyphema [A](14) [ ]X. Underlying condition requiring hospitalization (eg, osteomyelitis) [ ]XI. Signs or symptoms of central nervous system injury indicated by ANY ONE of the following: [ ]a) Stroke(9) [ ]b) Seizure [ ]c) Other significant central nervous system symptom or event [ ]XII. Acute renal failure Extended stay beyond goal length of stay may be needed for: [ ]a) Inadequate pain control [ ]b) Acute chest syndrome [ ]c) Sequestration or aplastic crisis (12) [ ]d) Pneumonia and asthma exacerbation [ ]e) Neurologic or vascular complications (25) [ ]f) Infection (eg, osteomyelitis) that requires ongoing treatment) The original [facility] [employer] content created by [facility] has been revised. The portions of the content which have been revised are identified through the use of italic text or in bold, and [facility] has neither reviewed nor approved the modified material. All other unmodified content is copyright [facility]. Please see references footnoted in the original [facility] [employer] edition 2016
[2016-12-12] MEDS: FLUSH HEPARIN IV ONE (22:35)
[2016-12-12 22:45] VITALS: BP 161/81
== END 2016-12-12 22:47 | disposition home or self-care (01) ==
LOC: ED 11:47
DX: D57.00 Hb-SS disease with crisis, unspecified (principal); R19.7 Diarrhea, unspecified; I10 Essential (primary) hypertension; M19.90 Unspecified osteoarthritis, unspecified site; D64.9 Anemia, unspecified
CPT/HCPCS: 36415; 85025; 85045; 96361; 96374; 96375; 96376; 99283; J1170; J1200; J1642; J2405; J7030

== ENCOUNTER 2016-12-27 08:10 | Emergency (ER) | payer MEDICAID | END 2016-12-27 08:50 | disposition left against medical advice (07) | LOC: ED 08:10 | DX: D57.00 Hb-SS disease with crisis, unspecified (principal); Z53.21 Procedure and treatment not carried out due to patient leaving prior to being seen by health care provider ==

== ENCOUNTER 2016-12-28 10:43 | Emergency (ER) | payer MEDICAID ==
[2016-12-28] MEDS: BENADRYL IV ONE (14:24)
[2016-12-28] MEDS: ZOFRAN IV ONE (14:25)
[2016-12-28] MEDS: DILAUDID IV ONE ×3 (14:26→16:25)
[2016-12-28] MEDS: D5NS 0.2% 1,000 ML IV ONE (14:27)
--- NOTE | 2016-12-28 14:37 | Emergency Department Report ---
HPI - General Chief Complaint: Sickle Cell Crisis Time Seen by Provider: 12/28/16 14:04 - HPI HPI: Chief complaint: Sickle cell crisis HPI: Patient is well-known to me with sickle cell disease, hypertension, recent admission for cellulitis who presents today with her typical sickle cell crisis to her back and legs. Patient denies chest pain, shortness of breath, nausea, vomiting, diarrhea or fever. Patient states she has been taking her Percocet without relief. Mode of arrival: private car Source: Patient old chart Began: One day Duration: Continuous Context: See above Quality: Typical sickle crisis pain Severity: 10 out of 10 Improved with: No relief with Percocet Worsened with: Nothing Associated signs and symptoms: See above ED Past Medical Hx - Past Medical History Hx Hypertension: Yes (Since 2001) Hx Sickle Cell Disease: Yes Hx Arthritis: Yes Additional medical history: ANEMIA, multiple port infections - Surgical History Hx Cholecystectomy: Yes Additional Surgical History: , port removed June 2014. PICC line left upper arm (11/19/2014). Most recent port 2 weeks ago her right subclavian. - Social History Smoking Status: Never Smoker - Medications Home Medications: Home Medications Medication Instructions Recorded Confirmed Last Taken Type Folic Acid [Folvite] 1 mg PO DAILY #30 tablet 07/29/16 12/16/16 Unknown Rx Hydroxyurea [Hydrea] 500 mg PO QDAY #60 capsule 07/29/16 12/16/16 Unknown Rx Lisinopril [Zestril TAB] 40 mg PO QDAY #30 tablet 12/02/16 12/16/16 Unknown Rx amLODIPine [Norvasc] 10 mg PO QDAY #30 tablet 12/02/16 12/16/16 Unknown Rx cloNIDine [Catapres] 0.1 mg PO TID 12/16/16 12/16/16 Unknown History Doxycycline [Vibramycin CAP] 100 mg PO Q12HR #14 capsule 12/18/16 Unknown Rx Oxycodone HCl/Acetaminophen 1 each PO Q6HR PRN #20 tablet 12/18/16 Unknown Rx [Percocet 10/325 mg] Oxycodone HCl/Acetaminophen 1 each PO Q6HR PRN #14 tablet 12/28/16 Unknown Rx [Percocet 10/325 mg] ED Review of Systems ROS: Stated complaint: SICKLE CELL CRISIS Other details as noted in HPI ROS Constitutional: No fever ENT: No uri symptoms Cardiovascular: No chest pain Respiratory: No sob or cough GI: No nausea vomiting or diarrhea : No dysuria frequency or urgency, Skin: No rash Neuro: No focal weakness or numbness Psych: No depression Dharmesh/lymph: No edema Physical Exam - Physical Exam Vital Signs: Vital Signs 12/28/16 10:55 Temperature 99.1 F Pulse Rate 85 Respiratory 20 Rate Blood Pressure 174/94 O2 Sat by Pulse 99 Oximetry Physical Exam: GENERAL: The patient is an obese -[place] female in no acute distress. HEENT: Normocephalic. Atraumatic. Extraocular motions are intact. Patient has moist mucous membranes. NECK: Supple. No meningitic signs are noted. There is no adenopathy noted. CHEST/LUNGS: Clear to auscultation. There is no respiratory distress noted. HEART/CARDIOVASCULAR: Regular. There is no tachycardia. There is no gallop rub or murmur. ABDOMEN: Abdomen is soft, nontender. Patient has normal bowel sounds. There is no abdominal distention. SKIN: There is no rash. There is no edema. There is no diaphoresis. NEURO: The patient is awake, alert, and oriented. The patient is cooperative. The patient has no focal neurologic deficits. The patient has normal speech. MUSCULOSKELETAL: There is mild lower extremity tenderness. There is no limitation range of motion. There is no evidence of acute injury. ED Course Vital Signs 12/28/16 10:55 Temperature 99.1 F Pulse Rate 85 Respiratory 20 Rate Blood Pressure 174/94 O2 Sat by Pulse 99 Oximetry - Reevaluation(s) Reevaluation #1: 12/28/16 14:51 Patient given IV fluids and IV Dilaudid and Zofran and Benadryl with improvement ED Medical Decision Making - Lab Data Result diagrams: 12/28/16 14:33 Laboratory Tests 12/28/16 14:33 Percent Retic 16.47 H Critical care attestation.: If time is entered above; I have spent that time in minutes in the direct care of this critically ill patient, excluding procedure time. ED Disposition Clinical Impression: Anemia, sickle cell with crisis Disposition: DISCHARGED TO HOME OR SELFCARE Is pt being admited?: No Does the pt Need Aspirin: No Condition: Stable Instructions: Sickle Cell Crisis (ED) Prescriptions: Oxycodone HCl/Acetaminophen [Percocet 10/325 mg] 1 each PO Q6HR PRN #14 tablet PRN Reason: Pain Referrals: PATTIE KEANE MD [Primary Care Provider] - 3-5 Days Time of Disposition: 16:06
[2016-12-28 14:40] LABS: Hematocrit 24.6 % (30.3-42.9); Hemoglobin 8.2 gm/dl (10.1-14.3); Mean Corpuscular HGB Conc 33 % (30-34); Mean Corpuscular Hemoglobin 31 pg (28-32); Mean Corpuscular Volume 93 fl (79-97); Platelet Count 565 K/mm3 (140-440); Red Blood Count 2.66 M/mm3 (3.65-5.03)
[2016-12-28 14:41] LABS: Reticulocyte % 16.47 % (0.78-2.58)
[2016-12-28 14:48] VITALS: BP 182/81
[2016-12-28 15:22] LABS: Basophils % (Manual) 0 % (0.0-1.8); Blastocytes % (Manual) 0 %
[2016-12-28 15:23] LABS: Anisocytosis 3+; Polychromasia 1+; Sickle Cells 2+
[2016-12-28 15:24] LABS: Large Platelets 1+; Target Cells 1+
[2016-12-28 15:25] LABS: Diff Status Complete; Platelet Estimate Consistent w Auto
[2016-12-28 15:26] LABS: White Blood Count 13.2 K/mm3 (4.5-11.0)
[2016-12-28] MEDS ORDERED: FLUSH HEPARIN IV ONE (16:22)
== END 2016-12-28 16:08 | disposition home or self-care (01) ==
LOC: ED 10:43
DX: D57.00 Hb-SS disease with crisis, unspecified (principal); I10 Essential (primary) hypertension; M19.90 Unspecified osteoarthritis, unspecified site; Z90.49 Acquired absence of other specified parts of digestive tract
CPT/HCPCS: 36415; 85007; 85025; 85045; 96361; 96374; 96375; 96376; 99283; J1170; J1200; J1642; J2405

== ENCOUNTER 2017-01-02 07:24 | Emergency (ER) | payer MEDICAID ==
[2017-01-02] MEDS ORDERED: D5NS 0.2% 1,000 ML IV SCH (08:00)
[2017-01-02 10:44] LABS: Basophils % (Auto) 0.6 % (0.0-1.8); Eosinophils % (Auto) 1.5 % (0.0-4.3); Hematocrit 25.2 % (30.3-42.9); Hemoglobin 8.2 gm/dl (10.1-14.3); Mean Corpuscular HGB Conc 33 % (30-34); Mean Corpuscular Hemoglobin 29 pg (28-32); Mean Corpuscular Volume 90 fl (79-97); Platelet Count 470 K/mm3 (140-440); Red Cell Distribution Width 18.2 % (13.2-15.2); Reticulocyte % 8.57 % (0.78-2.58); White Blood Count 18.8 K/mm3 (4.5-11.0)
--- NOTE | 2017-01-02 10:57 | Emergency Department Report ---
ED General Adult HPI - General Chief complaint: Sickle Cell Crisis Stated complaint: SICKLE CELL CRISIS/LEG /BACK PAIN Time Seen by Provider: 01/02/17 10:51 Source: patient, RN notes reviewed, old records reviewed Mode of arrival: Ambulatory Limitations: No Limitations - History of Present Illness Initial comments: Hematology: Dr. Torres past medical history: Sickle cell disease, right-sided thoracic wall port This is a 31-year-old female. I have evaluated her multiple times for sickle cell disease. Patient presents to the ER complaining of her typical sickle cell crisis. She complains of lower back pain, lower extremity pain, cough and runny nose. No irritative or obstructive urinary symptoms. Positive sick contacts. Symptoms are similar to prior episodes of sickle cell crisis. Pain typically improves with hydromorphone, diphenhydramine, Zofran. -: Gradual Location: back, left, right, lower extremity Severity scale (0 -10): 10 Quality: aching Improves with: medication, rest Worsens with: movement Associated Symptoms: cough - Related Data Home Medications Medication Instructions Recorded Confirmed Last Taken cloNIDine [Catapres] 0.1 mg PO TID 12/16/16 12/16/16 Unknown Previous Rx's Medication Instructions Recorded Last Taken Type Folic Acid [Folvite] 1 mg PO DAILY #30 tablet 07/29/16 Unknown Rx Hydroxyurea [Hydrea] 500 mg PO QDAY #60 capsule 07/29/16 Unknown Rx Lisinopril [Zestril TAB] 40 mg PO QDAY #30 tablet 12/02/16 Unknown Rx amLODIPine [Norvasc] 10 mg PO QDAY #30 tablet 12/02/16 Unknown Rx Doxycycline [Vibramycin CAP] 100 mg PO Q12HR #14 capsule 12/18/16 Unknown Rx Oxycodone HCl/Acetaminophen 1 each PO Q6HR PRN #20 tablet 12/18/16 Unknown Rx [Percocet 10/325 mg] Oxycodone HCl/Acetaminophen 1 each PO Q6HR PRN #14 tablet 12/28/16 Unknown Rx [Percocet 10/325 mg] Ketorolac [Toradol] 10 mg PO Q6H PRN #20 tablet 01/02/17 Unknown Rx oxyCODONE [Roxicodone] 5 mg PO Q6HR PRN #15 tablet 01/02/17 Unknown Rx Allergies Allergy/AdvReac Type Severity Reaction Status Date / Time No Known Allergies Allergy Verified 12/16/16 09:50 ED Review of Systems ROS: Stated complaint: SICKLE CELL CRISIS/LEG /BACK PAIN Other details as noted in HPI Constitutional: denies: fever Eyes: denies: vision change ENT: congestion. denies: epistaxis Respiratory: cough Cardiovascular: denies: chest pain Gastrointestinal: denies: vomiting Genitourinary: denies: dysuria Musculoskeletal: back pain, arthralgia, myalgia Skin: denies: lesions Neurological: denies: weakness Psychiatric: denies: anxiety ED Past Medical Hx - Past Medical History Previous Medical History?: Yes Hx Hypertension: Yes (Since 2001) Hx Heart Attack/AMI: No Hx Congestive Heart Failure: No Hx Diabetes: No Hx Sickle Cell Disease: Yes Hx Arthritis: Yes Hx Asthma: No Hx COPD: No Hx HIV: No Additional medical history: ANEMIA, multiple port infections - Surgical History Past Surgical History?: Yes Hx Cholecystectomy: Yes Additional Surgical History: , port removed June 2014. PICC line left upper arm (11/19/2014). Most recent port 2 weeks ago her right subclavian. - Social History Smoking Status: Never Smoker Substance Use Type: Prescribed - Medications Home Medications: Home Medications Medication Instructions Recorded Confirmed Last Taken Type Folic Acid [Folvite] 1 mg PO DAILY #30 tablet 07/29/16 12/16/16 Unknown Rx Hydroxyurea [Hydrea] 500 mg PO QDAY #60 capsule 07/29/16 12/16/16 Unknown Rx Lisinopril [Zestril TAB] 40 mg PO QDAY #30 tablet 12/02/16 12/16/16 Unknown Rx amLODIPine [Norvasc] 10 mg PO QDAY #30 tablet 12/02/16 12/16/16 Unknown Rx cloNIDine [Catapres] 0.1 mg PO TID 12/16/16 12/16/16 Unknown History Doxycycline [Vibramycin CAP] 100 mg PO Q12HR #14 capsule 12/18/16 Unknown Rx Oxycodone HCl/Acetaminophen 1 each PO Q6HR PRN #20 tablet 12/18/16 Unknown Rx [Percocet 10/325 mg] Oxycodone HCl/Acetaminophen 1 each PO Q6HR PRN #14 tablet 12/28/16 Unknown Rx [Percocet 10/325 mg] Ketorolac [Toradol] 10 mg PO Q6H PRN #20 tablet 01/02/17 Unknown Rx oxyCODONE [Roxicodone] 5 mg PO Q6HR PRN #15 tablet 01/02/17 Unknown Rx ED Physical Exam - General Limitations: No Limitations General appearance: alert, in no apparent distress - Head Head exam: Present: atraumatic, normocephalic - Eye Eye exam: Present: normal appearance, PERRL, EOMI. Absent: nystagmus - ENT ENT exam: Present: normal exam, normal orophraynx, mucous membranes moist, TM's normal bilaterally, normal external ear exam - Neck Neck exam: Present: normal inspection, full ROM. Absent: tenderness, meningismus - Respiratory Respiratory exam: Present: normal lung sounds bilaterally, other (there is a right-sided thoracic wall port, with no redness, pus, streaking or erythema.). Absent: respiratory distress, wheezes, rales, rhonchi, stridor, chest wall tenderness - Cardiovascular Cardiovascular Exam: Present: regular rate, normal rhythm, normal heart sounds. Absent: bradycardia, tachycardia, irregular rhythm, systolic murmur, diastolic murmur, rubs, gallop - GI/Abdominal GI/Abdominal exam: Present: soft, normal bowel sounds. Absent: distended, tenderness, guarding, rebound, rigid, pulsatile mass - Extremities Exam Extremities exam: Present: normal inspection, full ROM, tenderness, normal capillary refill. Absent: pedal edema, joint swelling, calf tenderness - Back Exam Back exam: Present: normal inspection, full ROM, tenderness, paraspinal tenderness - Neurological Exam Neurological exam: Present: alert, oriented X3, normal gait, other (Extraocular movements intact. Tongue midline. No facial droop. Facial sensation intact to light touch in the V1, V2, V3 distribution bilaterally. 5 and 5 strength in 4 extremities.. Sensation is intact to light touch in 4 extremities.). Absent : motor sensory deficit - Psychiatric Psychiatric exam: Present: anxious - Skin Skin exam: Present: warm, dry, intact, normal color. Absent: rash ED Course Vital Signs 01/02/17 01/02/17 07:37 09:58 Temperature 98.4 F 98.7 F Pulse Rate 96 H 90 Respiratory 20 16 Rate Blood Pressure 161/105 Blood Pressure 165/77 [Left] O2 Sat by Pulse 96 100 Oximetry - Reevaluation(s) Reevaluation #1: 01/02/17 14:21 Differential diagnosis: Sickle cell crisis, bronchitis, viral syndrome Assessment and plan: 31-year-old female who presents with her typical sickle cell crisis. She is afebrile with reassuring vital signs with exception of elevated blood pressure. Leukocytosis and reticulocyte count are appreciated, she typically has a chronically elevated white blood cell count. She reports that she is not , her chest x-ray was within normal limits. No irritative or obstructive urinary symptoms. Patient was treated aggressively with pain medication, I felt much improved. She is noted to be walking around the ER with no distress, speaking on a cellular phone, and talking to her friends and family. She is suitable for discharge at this point in time. 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 return precautions are extensively reviewed. \ ED Medical Decision Making - Lab Data Result diagrams: 01/02/17 10:20 01/02/17 10:20 Vital Signs 01/02/17 01/02/17 07:37 09:58 Temperature 98.4 F 98.7 F Pulse Rate 96 H 90 Respiratory 20 16 Rate Blood Pressure 161/105 Blood Pressure 165/77 [Left] O2 Sat by Pulse 96 100 Oximetry Lab Results 01/02/17 01/02/17 Range/Units 10:20 10:20 WBC 18.8 H (4.5-11.0) K/mm3 RBC 2.80 L (3.65-5.03) M/mm3 Hgb 8.2 L (10.1-14.3) gm/dl Hct 25.2 L (30.3-42.9) % MCV 90 (79-97) fl MCH 29 (28-32) pg MCHC 33 (30-34) % RDW 18.2 H (13.2-15.2) % Plt Count 470 H (140-440) K/mm3 Lymph % (Auto) 23.9 (13.4-35.0) % [place] % (Auto) 7.4 H (0.0-7.3) % Eos % (Auto) 1.5 (0.0-4.3) % Baso % (Auto) 0.6 (0.0-1.8) % Lymph # 4.5 (1.2-5.4) K/mm3 [place] # 1.4 H (0.0-0.8) K/mm3 Eos # 0.3 (0.0-0.4) K/mm3 Baso # 0.1 (0.0-0.1) K/mm3 Seg Neutrophils % 66.6 (40.0-70.0) % Seg Neutrophils # 12.5 H (1.8-7.7) K/mm3 Percent Retic 8.57 H (0.78-2.58) % Sodium 140 (137-145) mmol/L Potassium 4.0 (3.6-5.0) mmol/L Chloride 101.0 (98-107) mmol/L Carbon Dioxide 24 (22-30) mmol/L Anion Gap 19 mmol/L BUN 8 (7-17) mg/dL Creatinine 0.6 L (0.7-1.2) mg/dL Estimated GFR > 60 ml/min BUN/Creatinine Ratio 13.33 % Glucose 84 (65-100) mg/dL Calcium 8.9 (8.4-10.2) mg/dL - Radiology Data Radiology results: report reviewed, image reviewed X-ray of the chest negative for acute disease. Right-sided thoracic wall port is noted. Chronic cardiomegaly. No acute disease, no acute findings. Critical care attestation.: If time is entered above; I have spent that time in minutes in the direct care of this critically ill patient, excluding procedure time. ED Disposition Clinical Impression: Sickle cell pain crisis Disposition: DISCHARGED TO HOME OR SELFCARE Is pt being admited?: No Does the pt Need Aspirin: No Condition: Stable Instructions: Sickle Cell Crisis (ED), Hypertension (ED) Additional Instructions: Take the pain medication as directed. Follow up with their primary care doctor or liquified natural gas specialist within the next week. If taking the oxycodone for pain , do not drive, consume alcohol, or make important decisions. Please note that blood pressure was elevated. This should be followed up by a primary care doctor within the next week. Long-term complications of hypertension/elevated blood pressure includes stroke, heart attack, disability, , paralysis, loss of quality of life. Dr. Anuel Lindsey is a local primary care doctor. Dr. Flynn is a local liquified natural gas specialist. Please return to the ER with new pain, worsened pain, migration of pain, nausea or vomiting, inability to tolerate liquid feeds. Referrals: PRIMARY CARE, [Primary Care Provider] - 3-5 Days ANUEL LINDSEY MD [Staff Physician] - 3-5 Days SEMAJ FLYNN DO [Staff Physician] - 3-5 Days
[2017-01-02 10:58] LABS: Anion Gap 19 mmol/L; BUN/Creatinine Ratio 13.33; Blood Urea Nitrogen 8 mg/dL (7-17); Calcium 8.9 mg/dL (8.4-10.2); Carbon Dioxide 24 mmol/L (22-30); Glucose 84 mg/dL (65-100); Sodium 140 mmol/L (137-145)
[2017-01-02] MEDS ORDERED: ZOFRAN IV ONE (11:01)
[2017-01-02] MEDS ORDERED: DILAUDID IV ONE ×3 (11:01→12:53)
[2017-01-02] MEDS ORDERED: BENADRYL PO ONE (11:01)
[2017-01-02] MEDS ORDERED: TORADOL IV ONE (11:01)
--- NOTE | 2017-01-02 11:34 | XRay Report ---
PORTABLE CHEST INDICATION: Cough, phlegm. Sickle cell flare up. COMPARISON: 12/16/2016 FINDINGS: Portable, frontal chest radiograph again demonstrates cardiomegaly and limited inspiration with slightly crowded lung markings. No large pleural effusions or CHF. Stable right chest port tip near the cavoatrial junction. Subtle sclerosis within the humeral heads again not entirely excluded for AVN. CONCLUSION: No significant interval change with cardiomegaly and few other incidental findings again seen, as described. Thank you for the opportunity to participate in this patient's care.
[2017-01-02] MEDS ORDERED: FLUSH HEPARIN IV ONE (14:09)
[2017-01-02 14:32] VITALS: BP 126/74
== END 2017-01-02 14:37 | disposition home or self-care (01) ==
LOC: ED 07:24
DX: D57.00 Hb-SS disease with crisis, unspecified (principal); I10 Essential (primary) hypertension; D64.9 Anemia, unspecified
CPT/HCPCS: 36415; 71010; 80048; 85025; 85045; 96361; 96374; 96375; 96376; 99284; J1170; J1642; J1885; J2405

== ENCOUNTER 2017-02-12 08:56 | Emergency (ER) | payer MEDICAID ==
[2017-02-12] MEDS ORDERED: D5NS 0.2% 1,000 ML IV SCH (10:00)
[2017-02-12 13:31] LABS: Eosinophils % (Auto) 2.2 % (0.0-4.3); Hematocrit 24.9 % (30.3-42.9); Hemoglobin 8.6 gm/dl (10.1-14.3); Mean Corpuscular HGB Conc 35 % (30-34); Mean Corpuscular Hemoglobin 31 pg (28-32); Mean Corpuscular Volume 90 fl (79-97); Platelet Count 364 K/mm3 (140-440); Red Blood Count 2.77 M/mm3 (3.65-5.03); Reticulocyte % 15.87 % (0.78-2.58); White Blood Count 16.5 K/mm3 (4.5-11.0)
[2017-02-12 13:35] LABS: Red Cell Distribution Width 23.6 % (13.2-15.2)
[2017-02-12] MEDS ORDERED: ZOFRAN IV ONE (13:35)
[2017-02-12] MEDS ORDERED: BENADRYL IV ONE ×2 (13:35→15:02)
[2017-02-12] MEDS ORDERED: TORADOL IV ONE (13:35)
[2017-02-12] MEDS ORDERED: DILAUDID IV ONE ×3 (13:35→15:44)
[2017-02-12] MEDS: BICILLIN L-A IM ONE ×2 (14:34→15:59)
--- NOTE | 2017-02-12 15:23 | Emergency Department Report ---
ED General Adult HPI - General Chief complaint: Sickle Cell Crisis Stated complaint: SICKLE CELL CRISIS Time Seen by Provider: 02/12/17 12:59 Source: patient Mode of arrival: Ambulatory Limitations: No Limitations - History of Present Illness Initial comments: 31-year-old female with past medical history sickle cell disease, hypertension, anemia, cholecystectomy, and frequent ER visits for sickle cell presents to the hospital complains pain secondary to sickle cell crisis and throat pain. Patient complains of pain to back and legs typical of her sickle cell pain. It is constant, rated 10/10 intensity, no aggravating or alleviating factors reported. Current home narcotic medication not helping. Patient also developed right sided sore throat for the past 2 days. No reports of fever, vomiting, cough, chest pain, shortness of breath, or abdominal pain. Severity scale (0 -10): 6 - Related Data Home Medications Medication Instructions Recorded Confirmed Last Taken cloNIDine [Catapres] 0.1 mg PO TID 12/16/16 12/16/16 Unknown Previous Rx's Medication Instructions Recorded Last Taken Type Folic Acid [Folvite] 1 mg PO DAILY #30 tablet 07/29/16 Unknown Rx Hydroxyurea [Hydrea] 500 mg PO QDAY #60 capsule 07/29/16 Unknown Rx Lisinopril [Zestril TAB] 40 mg PO QDAY #30 tablet 12/02/16 Unknown Rx amLODIPine [Norvasc] 10 mg PO QDAY #30 tablet 12/02/16 Unknown Rx Doxycycline [Vibramycin CAP] 100 mg PO Q12HR #14 capsule 12/18/16 Unknown Rx Oxycodone HCl/Acetaminophen 1 each PO Q6HR PRN #20 tablet 12/18/16 Unknown Rx [Percocet 10/325 mg] Ketorolac [Toradol] 10 mg PO Q6H PRN #20 tablet 01/02/17 Unknown Rx oxyCODONE [Roxicodone] 5 mg PO Q6HR PRN #15 tablet 01/02/17 Unknown Rx Oxycodone HCl/Acetaminophen 1 each PO Q6HR PRN #14 tablet 02/12/17 Unknown Rx [Percocet 10/325 mg] Allergies Allergy/AdvReac Type Severity Reaction Status Date / Time No Known Allergies Allergy Verified 12/16/16 09:50 ED Review of Systems ROS: Stated complaint: SICKLE CELL CRISIS Other details as noted in HPI Comment: All other systems reviewed and negative Other: Constitutional: No fevers chills Eyes: No eye pain visual changes ENT: as per hpi Neck: Denies pain Respiratory: Denies cough wheezing shortness of breath Cardiovascular: Denies chest pain, palpitations, syncope GI: Denies abdominal pain, nausea, vomiting, diarrhea : Denies dysuria Musculoskeletal: as per hpi Skin: Denies rash, lesions, erythema Neurologic: Denies headache, numbness, weakness Psychiatric: Denies suicidal ideation, hallucinations ED Past Medical Hx - Past Medical History Previous Medical History?: Yes Hx Hypertension: Yes (Since 2001) Hx Heart Attack/AMI: No Hx Congestive Heart Failure: No Hx Diabetes: No Hx Sickle Cell Disease: Yes Hx Arthritis: Yes Hx Asthma: No Hx COPD: No Hx HIV: No Additional medical history: ANEMIA, multiple port infections - Surgical History Past Surgical History?: Yes Hx Cholecystectomy: Yes Additional Surgical History: , port removed June 2014. PICC line left upper arm (11/19/2014). Most recent port 2 weeks ago her right subclavian. - Social History Smoking Status: Never Smoker Substance Use Type: Prescribed - Medications Home Medications: Home Medications Medication Instructions Recorded Confirmed Last Taken Type Folic Acid [Folvite] 1 mg PO DAILY #30 tablet 07/29/16 12/16/16 Unknown Rx Hydroxyurea [Hydrea] 500 mg PO QDAY #60 capsule 07/29/16 12/16/16 Unknown Rx Lisinopril [Zestril TAB] 40 mg PO QDAY #30 tablet 12/02/16 12/16/16 Unknown Rx amLODIPine [Norvasc] 10 mg PO QDAY #30 tablet 12/02/16 12/16/16 Unknown Rx cloNIDine [Catapres] 0.1 mg PO TID 12/16/16 12/16/16 Unknown History Doxycycline [Vibramycin CAP] 100 mg PO Q12HR #14 capsule 12/18/16 Unknown Rx Oxycodone HCl/Acetaminophen 1 each PO Q6HR PRN #20 tablet 12/18/16 Unknown Rx [Percocet 10/325 mg] Ketorolac [Toradol] 10 mg PO Q6H PRN #20 tablet 01/02/17 Unknown Rx oxyCODONE [Roxicodone] 5 mg PO Q6HR PRN #15 tablet 01/02/17 Unknown Rx Oxycodone HCl/Acetaminophen 1 each PO Q6HR PRN #14 tablet 02/12/17 Unknown Rx [Percocet 10/325 mg] ED Physical Exam - General Limitations: No Limitations - Other Other exam information: General: No limitations, patient is alert in no acute distress Head exam: Atraumatic, normocephalic Eyes exam: Normal appearance ENT: Moist mucous membrane, exudate to right tonsil with tender lymphadenopathy Neck exam: Normal inspection, full range of motion, no meningismus nontender Respiratory exam: Clear to auscultation bilateral, no wheezes, rales, crackles Cardiovascular: Normal rate and rhythm, normal heart sounds Abdomen: Soft, nondistended, and nontender, with normal bowel sounds, no rebound, or guarding Extremity: Full range of motion normal inspection no deformity Back: Normal Inspection, full range of motion, no tenderness Neurologic: Alert, oriented x3, cranial nerves intact, no motor or sensory deficit Psychiatric: normal affect, normal mood Skin: Warm, dry, intact ED Course Vital Signs 02/12/17 09:15 Temperature 98.9 F Pulse Rate 82 Respiratory 20 Rate Blood Pressure 194/94 O2 Sat by Pulse 98 Oximetry - Reevaluation(s) Reevaluation #1: 02/12/17 15:22 Patient treated with multiple doses of Dilaudid, Zofran, Benadryl, IV fluids, and Bicillin LA for strep ED Medical Decision Making - Lab Data Result diagrams: 02/12/17 Unknown Lab Results 02/12/17 Range/Units Unknown WBC 16.5 H (4.5-11.0) K/mm3 RBC 2.77 L (3.65-5.03) M/mm3 Hgb 8.6 L (10.1-14.3) gm/dl Hct 24.9 L (30.3-42.9) % MCV 90 (79-97) fl MCH 31 (28-32) pg MCHC 35 H (30-34) % RDW 23.6 H (13.2-15.2) % Plt Count 364 (140-440) K/mm3 Lymph % (Auto) 22.1 (13.4-35.0) % [place] % (Auto) 5.5 (0.0-7.3) % Eos % (Auto) 2.2 (0.0-4.3) % Baso % (Auto) 2.0 H (0.0-1.8) % Lymph # 3.6 (1.2-5.4) K/mm3 [place] # 0.9 H (0.0-0.8) K/mm3 Eos # 0.4 (0.0-0.4) K/mm3 Baso # 0.3 H (0.0-0.1) K/mm3 Seg Neutrophils % 68.2 (40.0-70.0) % Seg Neutrophils # 11.3 H (1.8-7.7) K/mm3 Percent Retic 15.87 H (0.78-2.58) % - Medical Decision Making Strep test positive received Bicillin Patient treated with multiple medications for sickle cell crisis sx improved will d/c with pain meds - Differential Diagnosis sickle cell crisis, strep pharyngitis, anemia Critical Care Time: No Critical care attestation.: If time is entered above; I have spent that time in minutes in the direct care of this critically ill patient, excluding procedure time. ED Disposition Clinical Impression: Sickle cell pain crisis, Strep pharyngitis Disposition: DISCHARGED TO HOME OR SELFCARE Is pt being admited?: No Does the pt Need Aspirin: No Condition: Stable Instructions: Sickle Cell Crisis (ED), Pharyngitis (ED) Additional Instructions: Take meds as prescribed. Return if symptoms worsen. Prescriptions: Oxycodone HCl/Acetaminophen [Percocet 10/325 mg] 1 each PO Q6HR PRN #14 tablet PRN Reason: Pain Referrals: SEMAJ FLYNN DO [Staff Physician] - 2-3 Days Time of Disposition: 16:09
[2017-02-12] MEDS ORDERED: FLUSH HEPARIN IV ONE ×2 (16:26→16:45)
[2017-02-12 16:43] VITALS: BP 163/79
== END 2017-02-12 16:00 | disposition home or self-care (01) ==
LOC: ED 08:56
DX: D57.00 Hb-SS disease with crisis, unspecified (principal); J02.0 Streptococcal pharyngitis; I10 Essential (primary) hypertension
CPT/HCPCS: 36415; 85025; 85045; 87430; 96361; 96372; 96374; 96375; 96376; 99283; J0561; J1170; J1200; J1642; J1885; J2405

== ENCOUNTER 2017-02-23 06:02 | Emergency (ER) | payer MEDICAID ==
[2017-02-23] MEDS ORDERED: D5NS 0.2% 1,000 ML IV SCH (07:00)
[2017-02-23] MEDS ORDERED: DILAUDID IV ONE ×3 (08:50→12:09)
[2017-02-23] MEDS ORDERED: NORMODYNE IV ONE (09:19)
[2017-02-23 09:32] LABS: Hematocrit 21.4 % (30.3-42.9); Hemoglobin 7.4 gm/dl (10.1-14.3); Mean Corpuscular HGB Conc 35 % (30-34); Mean Corpuscular Hemoglobin 31 pg (28-32); Mean Corpuscular Volume 88 fl (79-97); Platelet Count 438 K/mm3 (140-440); Red Blood Count 2.43 M/mm3 (3.65-5.03); Reticulocyte % 13.97 % (0.78-2.58)
[2017-02-23] MEDS ORDERED: ZOFRAN IV ONE (09:57)
[2017-02-23] MEDS ORDERED: BENADRYL IV ONE (09:57)
--- NOTE | 2017-02-23 10:09 | Emergency Department Report ---
HPI - General Chief Complaint: Sickle Cell Crisis Time Seen by Provider: 02/23/17 08:39 - HPI HPI: This is a 31-year-old Afro-[place] female presents to the emergency department from home with complaint of pain to the bilateral shoulders, lower back and bilateral legs that she says is consistent with her sickle cell pain crisis. This been going on since yesterday. She denies any problems with bowel or bladder, numbness or paresthesias or any neurological deficits. She denies any fever, chest pain, shortness of breath, nausea, vomiting. She's been taking some home pain medications as well as hydroxyurea without any relief. Her primary care doctor/erp implementation consultant is Dr. Fredis Keane. No recent travel or sick contacts at home. ED Past Medical Hx - Past Medical History Hx Hypertension: Yes (Since 2001) Hx Heart Attack/AMI: No Hx Congestive Heart Failure: No Hx Diabetes: No Hx Sickle Cell Disease: Yes Hx Arthritis: Yes Hx Asthma: No Hx COPD: No Hx HIV: No Additional medical history: ANEMIA, multiple port infections - Surgical History Hx Cholecystectomy: Yes Additional Surgical History: , port removed June 2014. PICC line left upper arm (11/19/2014). Most recent port 2 weeks ago her right subclavian. - Social History Smoking Status: Never Smoker Substance Use Type: None - Medications Home Medications: Home Medications Medication Instructions Recorded Confirmed Last Taken Type Folic Acid [Folvite] 1 mg PO DAILY #30 tablet 07/29/16 12/16/16 Unknown Rx Hydroxyurea [Hydrea] 500 mg PO QDAY #60 capsule 07/29/16 12/16/16 Unknown Rx Lisinopril [Zestril TAB] 40 mg PO QDAY #30 tablet 12/02/16 12/16/16 Unknown Rx amLODIPine [Norvasc] 10 mg PO QDAY #30 tablet 12/02/16 12/16/16 Unknown Rx cloNIDine [Catapres] 0.1 mg PO TID 12/16/16 12/16/16 Unknown History Doxycycline [Vibramycin CAP] 100 mg PO Q12HR #14 capsule 12/18/16 Unknown Rx Oxycodone HCl/Acetaminophen 1 each PO Q6HR PRN #20 tablet 12/18/16 Unknown Rx [Percocet 10/325 mg] Ketorolac [Toradol] 10 mg PO Q6H PRN #20 tablet 01/02/17 Unknown Rx oxyCODONE [Roxicodone] 5 mg PO Q6HR PRN #15 tablet 01/02/17 Unknown Rx Oxycodone HCl/Acetaminophen 1 each PO Q6HR PRN #14 tablet 02/12/17 Unknown Rx [Percocet 10/325 mg] oxyCODONE /ACETAMINOPHEN [Percocet 1 tab PO Q6HR PRN #10 tablet 02/23/17 Unknown Rx 5/325] ED Review of Systems ROS: Stated complaint: SICKLE CELL PAIN Other details as noted in HPI Comment: All other systems reviewed and negative Constitutional: denies: chills, fever Eyes: denies: eye pain, eye discharge, vision change ENT: denies: ear pain, throat pain Respiratory: denies: cough, shortness of breath, wheezing Cardiovascular: denies: chest pain, palpitations Gastrointestinal: denies: abdominal pain, nausea, diarrhea Genitourinary: denies: urgency, dysuria, discharge Musculoskeletal: back pain, arthralgia. denies: joint swelling Skin: denies: rash, lesions Neurological: denies: headache, weakness, paresthesias Physical Exam - Physical Exam Vital Signs: Vital Signs 02/23/17 06:10 Temperature 98.5 F Pulse Rate 84 Respiratory 20 Rate Blood Pressure 184/104 Blood Pressure 184/104 [Left] O2 Sat by Pulse 95 Oximetry Physical Exam: GENERAL: The patient is well-developed well-nourished. HEENT: Normocephalic. Atraumatic. Extraocular motions are intact. Patient has moist mucous membranes. Pupils equal reactive to light bilaterally. NECK: Supple. Trachea is midline. CHEST/LUNGS: Clear to auscultation. There is no respiratory distress noted. Chest port in place to the chest wall. HEART/CARDIOVASCULAR: Regular. There is no tachycardia. There is no gallop rub or murmur. ABDOMEN: Abdomen is soft, nontender. Patient has normal bowel sounds. There is no abdominal distention. Obese habitus. SKIN: Skin is warm and dry. NEURO: The patient is awake, alert, and oriented. The patient is cooperative. The patient has no focal neurologic deficits. The patient has normal speech. MUSCULOSKELETAL: There is some mild tenderness to palpation to the bilateral shoulders but no obvious deformity. There is no limitation range of motion. There is no evidence of acute injury. Muscle strength 5 out of 5 upper and lower extremities bilaterally including EHL. BACK: no midline thoracic or lumbar tenderness to palpation or deformity. There is some reproducible lumbar paraspinal tenderness to palpation. ED Course Vital Signs 02/23/17 06:10 Temperature 98.5 F Pulse Rate 84 Respiratory 20 Rate Blood Pressure 184/104 Blood Pressure 184/104 [Left] O2 Sat by Pulse 95 Oximetry ED Medical Decision Making - Lab Data Result diagrams: 02/23/17 09:11 - Medical Decision Making 31-year-old female with history of sickle cell disease presents with a 24-hour history of pain to the bilateral shoulders, low back and lower extremity. She does not have any chest pain, fever, cough, shortness of breath. There is a low suspicion for chest crisis. Patient's labs do not show any concern for aplastic anemia. There is anemia with a hemoglobin of about 7.6 which is slightly lower than previous but consistent with other visits. I count is 13 which is slightly lower than when she was here a few days ago. The patient was given some IV fluid resuscitation and pain medication and upon reevaluation she is feeling improved. She did present with some elevated blood pressure but it came down to a more reasonable level with one dose of antihypertensives medication. Patient appears stable for discharge. She will return to the ER with any worsening of her symptoms or any acute distress. - Differential Diagnosis sickle cell pain crisis, polymyalgia rheumatica, osteoporosis, fibromyalgia Critical Care Time: No Critical care attestation.: If time is entered above; I have spent that time in minutes in the direct care of this critically ill patient, excluding procedure time. ED Disposition Clinical Impression: Sickle cell pain crisis Anemia Qualifiers: Anemia type: unspecified type Qualified Code(s): D64.9 - Anemia, unspecified Sickle cell disease Qualifiers: Sickle-cell associated disorders: without crisis Qualified Code(s): D57.1 - Sickle-cell disease without crisis Back pain Qualifiers: Back pain location: back pain in unspecified location Chronicity: unspecified Back pain laterality: bilateral Qualified Code(s): M54.9 - Dorsalgia, unspecified Arthralgia Qualifiers: Joint pain location: shoulder Laterality: bilateral Qualified Code(s): M25.511 - Pain in right shoulder Disposition: DISCHARGED TO HOME OR SELFCARE Is pt being admited?: No Condition: Stable Instructions: Sickle Cell Crisis (ED), Musculoskeletal Pain (ED) Additional Instructions: Please follow-up with Dr. Keane in the next few days. Return to the emergency department with any acute distress. You've been prescribed a medication that is sedating. Therefore this medication cannot be mixed with alcohol, or taken prior to driving, working, or being responsible for children. Prescriptions: oxyCODONE /ACETAMINOPHEN [Percocet 5/325] 1 tab PO Q6HR PRN #10 tablet PRN Reason: Pain Referrals: PATTIE KEANE MD [Primary Care Provider] - 3-5 Days Time of Disposition: 12:49
[2017-02-23 10:25] LABS: Red Cell Distribution Width 21.3 % (13.2-15.2); White Blood Count 14.9 K/mm3 (4.5-11.0)
[2017-02-23 11:10] LABS: Blastocytes % (Manual) 0 %
[2017-02-23 11:11] LABS: Anisocytosis 2+; Basophils % (Manual) 0 % (0.0-1.8)
[2017-02-23 11:12] LABS: Elliptocytes 1+; Polychromasia 2+; Sickle Cells 1+
[2017-02-23 11:13] LABS: Diff Status Complete; Hypochromasia 1+
[2017-02-23 12:37] VITALS: BP 159/80
[2017-02-23] MEDS ORDERED: FLUSH HEPARIN IV ONE (13:16)
== END 2017-02-23 12:49 | disposition home or self-care (01) ==
LOC: ED 06:02
DX: D57.1 Sickle-cell disease without crisis (principal); D64.9 Anemia, unspecified; M54.9 Dorsalgia, unspecified; M25.511 Pain in right shoulder; M25.512 Pain in left shoulder; I10 Essential (primary) hypertension; M19.90 Unspecified osteoarthritis, unspecified site
CPT/HCPCS: 36415; 85007; 85025; 85045; 96361; 96374; 96375; 96376; 99283; J1170; J1200; J2405; J1642

== ENCOUNTER 2017-03-29 08:40 | Emergency (ER) | payer MEDICAID ==
[2017-03-29] MEDS ORDERED: ZOFRAN IV ONE (16:47)
[2017-03-29] MEDS ORDERED: BENADRYL IV ONE ×2 (16:47→19:14)
[2017-03-29] MEDS ORDERED: TORADOL IV ONE (16:47)
[2017-03-29] MEDS ORDERED: DILAUDID IV ONE ×3 (16:47→19:50)
[2017-03-29] MEDS ORDERED: D5NS 0.2% 1,000 ML IV SCH (17:00)
[2017-03-29 17:29] LABS: Basophils % (Auto) 1.1 % (0.0-1.8); Eosinophils % (Auto) 1.4 % (0.0-4.3); Hematocrit 26.8 % (30.3-42.9); Hemoglobin 9.1 gm/dl (10.1-14.3); Mean Corpuscular HGB Conc 34 % (30-34); Mean Corpuscular Hemoglobin 31 pg (28-32); Mean Corpuscular Volume 91 fl (79-97); Platelet Count 469 K/mm3 (140-440); Red Blood Count 2.95 M/mm3 (3.65-5.03); Reticulocyte % 6.29 % (0.78-2.58); White Blood Count 12.3 K/mm3 (4.5-11.0)
[2017-03-29] MEDS ORDERED: BENADRYL ONE (19:04)
--- NOTE | 2017-03-29 20:10 | Emergency Department Report ---
ED General Adult HPI - General Chief complaint: Sickle Cell Crisis Stated complaint: PARK CELL PAIN Time Seen by Provider: 03/29/17 16:46 Source: patient Mode of arrival: Ambulatory Limitations: No Limitations - History of Present Illness Initial comments: 31-year-old female with a past medical history of hypertension and sickle cell disease presents to the hospital complains of pain secondary to sickle cell crisis for several days. Pain is in the shoulders, upper back, and lower legs. Pain is constant rated 8/10 in intensity. Some worsening with movement and palpation. No alleviating factors. Patient states the Percocet 10 to stay she only has 3 tablets left. Her current simulation specialist Dr. Torres Severity scale (0 -10): 8 - Related Data Home Medications Medication Instructions Recorded Confirmed Last Taken cloNIDine [Catapres] 0.1 mg PO TID 12/16/16 12/16/16 Unknown Previous Rx's Medication Instructions Recorded Last Taken Type Folic Acid [Folvite] 1 mg PO DAILY #30 tablet 07/29/16 Unknown Rx Hydroxyurea [Hydrea] 500 mg PO QDAY #60 capsule 07/29/16 Unknown Rx Lisinopril [Zestril TAB] 40 mg PO QDAY #30 tablet 12/02/16 Unknown Rx amLODIPine [Norvasc] 10 mg PO QDAY #30 tablet 12/02/16 Unknown Rx Doxycycline [Vibramycin CAP] 100 mg PO Q12HR #14 capsule 12/18/16 Unknown Rx Ketorolac [Toradol] 10 mg PO Q6H PRN #20 tablet 01/02/17 Unknown Rx oxyCODONE [Roxicodone] 5 mg PO Q6HR PRN #15 tablet 01/02/17 Unknown Rx Oxycodone HCl/Acetaminophen 1 each PO Q6HR PRN #14 tablet 02/12/17 Unknown Rx [Percocet 10/325 mg] oxyCODONE /ACETAMINOPHEN [Percocet 1 tab PO Q6HR PRN #10 tablet 02/23/17 Unknown Rx 5/325] Oxycodone HCl/Acetaminophen 1 each PO Q6HR PRN #20 tablet 03/29/17 Unknown Rx [Percocet 10/325 mg] Allergies Allergy/AdvReac Type Severity Reaction Status Date / Time No Known Allergies Allergy Verified 03/29/17 08:56 ED Review of Systems ROS: Stated complaint: PARK CELL PAIN Other details as noted in HPI Comment: All other systems reviewed and negative Other: Constitutional: No fevers chills or weight loss Eyes: No eye pain visual changes or discharge ENT: No ear pain or throat pain Neck: Denies pain Respiratory: Denies cough wheezing shortness of breath Cardiovascular: Denies chest pain, palpitations, syncope GI: Denies abdominal pain, nausea, vomiting, diarrhea : Denies dysuria Musculoskeletal: as per hpi Skin: Denies rash, lesions, erythema Neurologic: Denies headache, numbness, weakness Psychiatric: Denies suicidal ideation, hallucinations ED Past Medical Hx - Past Medical History Hx Hypertension: Yes (Since 2001) Hx Heart Attack/AMI: No Hx Congestive Heart Failure: No Hx Diabetes: No Hx Sickle Cell Disease: Yes Hx Arthritis: Yes Hx Asthma: No Hx COPD: No Hx HIV: No Additional medical history: ANEMIA, multiple port infections - Surgical History Hx Cholecystectomy: Yes Additional Surgical History: , port removed June 2014. PICC line left upper arm (11/19/2014). Most recent port 2 weeks ago her right subclavian. - Social History Smoking Status: Never Smoker Substance Use Type: Prescribed - Medications Home Medications: Home Medications Medication Instructions Recorded Confirmed Last Taken Type Folic Acid [Folvite] 1 mg PO DAILY #30 tablet 07/29/16 12/16/16 Unknown Rx Hydroxyurea [Hydrea] 500 mg PO QDAY #60 capsule 07/29/16 12/16/16 Unknown Rx Lisinopril [Zestril TAB] 40 mg PO QDAY #30 tablet 12/02/16 12/16/16 Unknown Rx amLODIPine [Norvasc] 10 mg PO QDAY #30 tablet 12/02/16 12/16/16 Unknown Rx cloNIDine [Catapres] 0.1 mg PO TID 12/16/16 12/16/16 Unknown History Doxycycline [Vibramycin CAP] 100 mg PO Q12HR #14 capsule 12/18/16 Unknown Rx Ketorolac [Toradol] 10 mg PO Q6H PRN #20 tablet 01/02/17 Unknown Rx oxyCODONE [Roxicodone] 5 mg PO Q6HR PRN #15 tablet 01/02/17 Unknown Rx Oxycodone HCl/Acetaminophen 1 each PO Q6HR PRN #14 tablet 02/12/17 Unknown Rx [Percocet 10/325 mg] oxyCODONE /ACETAMINOPHEN [Percocet 1 tab PO Q6HR PRN #10 tablet 02/23/17 Unknown Rx 5/325] Oxycodone HCl/Acetaminophen 1 each PO Q6HR PRN #20 tablet 03/29/17 Unknown Rx [Percocet 10/325 mg] ED Physical Exam - General Limitations: No Limitations - Other Other exam information: General: No limitations, patient is alert in no acute distress Head exam: Atraumatic, normocephalic Eyes exam: Normal appearance ENT: Moist mucous membrane, normal oropharynx Neck exam: Normal inspection, full range of motion, no meningismus nontender Respiratory exam: Clear to auscultation bilateral, no wheezes, rales, crackles Cardiovascular: Normal rate and rhythm, normal heart sounds Abdomen: Soft, nondistended, and nontender, with normal bowel sounds, no rebound, or guarding Extremity: Full range of motion normal inspection no deformity. No edema, asymmetry, or Back: Normal Inspection, full range of motion, tenderness to posterior upper thoracic area Neurologic: Alert, oriented x3, cranial nerves intact, no motor or sensory deficit Psychiatric: normal affect, normal mood Skin: Warm, dry, intact ED Course Vital Signs 03/29/17 03/29/17 03/29/17 08:53 17:34 18:00 Temperature 98.6 F Pulse Rate 93 H 95 H Respiratory 19 19 18 Rate Blood Pressure 152/90 Blood Pressure 159/77 [Left] O2 Sat by Pulse 100 100 98 Oximetry - Reevaluation(s) Reevaluation #1: 03/29/17 20:10 Patient received 3 separate doses Dilaudid 2 mg with improvement in pain and also received Zofran and Benadryl ED Medical Decision Making - Lab Data Result diagrams: 03/29/17 17:09 Lab Results 03/29/17 Range/Units 17:09 WBC 12.3 H (4.5-11.0) K/mm3 RBC 2.95 L (3.65-5.03) M/mm3 Hgb 9.1 L (10.1-14.3) gm/dl Hct 26.8 L (30.3-42.9) % MCV 91 (79-97) fl MCH 31 (28-32) pg MCHC 34 (30-34) % RDW 18.0 H (13.2-15.2) % Plt Count 469 H (140-440) K/mm3 Lymph % (Auto) 30.2 (13.4-35.0) % [place] % (Auto) 8.7 H (0.0-7.3) % Eos % (Auto) 1.4 (0.0-4.3) % Baso % (Auto) 1.1 (0.0-1.8) % Lymph # 3.7 (1.2-5.4) K/mm3 [place] # 1.1 H (0.0-0.8) K/mm3 Eos # 0.2 (0.0-0.4) K/mm3 Baso # 0.1 (0.0-0.1) K/mm3 Seg Neutrophils % 58.6 (40.0-70.0) % Seg Neutrophils # 7.2 (1.8-7.7) K/mm3 Percent Retic 6.29 H (0.78-2.58) % - Medical Decision Making Patient has improvement in symptoms. Was discharged with additional Percocet tablets and follow up with her simulation specialist. She does not require blood transfusion at this time and no signs of infection - Differential Diagnosis drug-seeking, narcotic dependence, sickle cell pain, anemia Critical Care Time: No Critical care attestation.: If time is entered above; I have spent that time in minutes in the direct care of this critically ill patient, excluding procedure time. ED Disposition Clinical Impression: Anemia, sickle cell with crisis Disposition: DISCHARGED TO HOME OR SELFCARE Is pt being admited?: No Does the pt Need Aspirin: No Condition: Stable Instructions: Sickle Cell Crisis (ED) Prescriptions: Oxycodone HCl/Acetaminophen [Percocet 10/325 mg] 1 each PO Q6HR PRN #20 tablet PRN Reason: Pain Referrals: ashtyn grant [Other] - 3-5 Days Time of Disposition: 20:11
[2017-03-29] MEDS ORDERED: FLUSH HEPARIN IV ONE (20:26)
[2017-03-29 22:27] VITALS: BP 157/69
== END 2017-03-29 22:26 | disposition home or self-care (01) ==
LOC: ED 08:40
DX: D57.00 Hb-SS disease with crisis, unspecified (principal); D64.9 Anemia, unspecified; I10 Essential (primary) hypertension; M19.90 Unspecified osteoarthritis, unspecified site; Z90.49 Acquired absence of other specified parts of digestive tract
CPT/HCPCS: 36415; 85025; 85045; 96361; 96374; 96375; 96376; 99283; J1170; J1200; J1642; J1885; J2405

== ENCOUNTER 2017-04-16 07:49 | Emergency (ER) | payer MEDICAID ==
[2017-04-16] MEDS ORDERED: D5NS 0.2% 1,000 ML IV SCH (08:30)
[2017-04-16] MEDS ORDERED: TORADOL IV ONE (10:29)
[2017-04-16] MEDS ORDERED: ZOFRAN IV ONE (10:29)
[2017-04-16] MEDS ORDERED: DILAUDID IV ONE ×3 (10:29→13:12)
[2017-04-16] MEDS ORDERED: BENADRYL IV ONE ×2 (10:29→13:12)
[2017-04-16 11:33] LABS: Hematocrit 22.9 % (30.3-42.9); Hemoglobin 7.7 gm/dl (10.1-14.3); Mean Corpuscular HGB Conc 34 % (30-34); Mean Corpuscular Hemoglobin 31 pg (28-32); Mean Corpuscular Volume 92 fl (79-97); Platelet Count 430 K/mm3 (140-440); Red Blood Count 2.49 M/mm3 (3.65-5.03); Reticulocyte % 15.44 % (0.78-2.58)
[2017-04-16] MEDS ORDERED: VERSED IV ONE (11:43)
[2017-04-16 11:44] LABS: Red Cell Distribution Width 21.5 % (13.2-15.2); White Blood Count 20.9 K/mm3 (4.5-11.0)
[2017-04-16 12:15] LABS: Anisocytosis 1+; Basophils % (Manual) 0 % (0.0-1.8); Blastocytes % (Manual) 0 %
[2017-04-16 12:16] LABS: Diff Status Complete; Hypochromasia 1+; Polychromasia 1+; Sickle Cells 1+; Target Cells 1+
[2017-04-16 12:53] VITALS: BP 157/85
--- NOTE | 2017-04-16 13:01 | XRay Report ---
CHEST 2 VIEWS INDICATION: Cough. COMPARISON: 01/02/2017 FINDINGS: Frontal and lateral chest radiographs again demonstrate cardiomegaly and right chest port tip about the cavoatrial junction. Increased bronchovascular markings centrally again noted, right slightly more than left. No pleural effusions or overt CHF. Possible V-shaped artifact projecting over the right upper lung. Mild concavities along multiple vertebral endplates. Subtle sclerosis in the humeral heads also possible. CONCLUSION: Cardiomegaly, right chest port, increased lung markings centrally and sickle cell bony changes again noted, as described. Thank you for the opportunity to participate in this patient's care.
--- NOTE | 2017-04-16 13:14 | Emergency Department Report ---
ED General Adult HPI - General Chief complaint: Sickle Cell Crisis Stated complaint: SICKLE CELL/PAIN Time Seen by Provider: 04/16/17 10:28 Source: patient Mode of arrival: Ambulatory Limitations: No Limitations - History of Present Illness Initial comments: 31-year-old female with a past medical history of sickle cell anemia and hypertension presents to the hospital complaining of pain to shoulders legs since yesterday. Pain is constant, 9/10 intensity, no aggravating or alleviating factor. Not improve with home Percocet. Mild dry cough reported. Patient denies chest pain, shortness of breath, nausea, vomiting, fever, or abdominal pain. 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 Severity scale (0 -10): 6 - Related Data Home Medications Medication Instructions Recorded Confirmed Last Taken cloNIDine [Catapres] 0.1 mg PO TID 12/16/16 12/16/16 Unknown Previous Rx's Medication Instructions Recorded Last Taken Type Folic Acid [Folvite] 1 mg PO DAILY #30 tablet 07/29/16 Unknown Rx Hydroxyurea [Hydrea] 500 mg PO QDAY #60 capsule 07/29/16 Unknown Rx Lisinopril [Zestril TAB] 40 mg PO QDAY #30 tablet 12/02/16 Unknown Rx amLODIPine [Norvasc] 10 mg PO QDAY #30 tablet 12/02/16 Unknown Rx Doxycycline [Vibramycin CAP] 100 mg PO Q12HR #14 capsule 12/18/16 Unknown Rx Ketorolac [Toradol] 10 mg PO Q6H PRN #20 tablet 01/02/17 Unknown Rx oxyCODONE [Roxicodone] 5 mg PO Q6HR PRN #15 tablet 01/02/17 Unknown Rx Oxycodone HCl/Acetaminophen 1 each PO Q6HR PRN #14 tablet 02/12/17 Unknown Rx [Percocet 10/325 mg] oxyCODONE /ACETAMINOPHEN [Percocet 1 tab PO Q6HR PRN #10 tablet 02/23/17 Unknown Rx 5/325] Oxycodone HCl/Acetaminophen 1 each PO Q6HR PRN #20 tablet 04/16/17 Unknown Rx [Percocet 10/325 mg] Allergies Allergy/AdvReac Type Severity Reaction Status Date / Time No Known Allergies Allergy Verified 03/29/17 08:56 ED Review of Systems ROS: Stated complaint: SICKLE CELL/PAIN Other details as noted in HPI Comment: All other systems reviewed and negative Other: Constitutional: No fevers chills Eyes: No eye pain visual changes or discharge ENT: No ear pain or throat pain Neck: Denies pain Respiratory: Denies cough wheezing shortness of breath Cardiovascular: Denies chest pain, palpitations, syncope GI: Denies abdominal pain, nausea, vomiting, diarrhea : Denies dysuria Musculoskeletal: As per HPI Skin: Denies rash, lesions, erythema Neurologic: Denies headache, numbness, weakness Psychiatric: Denies suicidal ideation, hallucinations ED Past Medical Hx - Past Medical History Hx Hypertension: Yes (Since 2001) Hx Heart Attack/AMI: No Hx Congestive Heart Failure: No Hx Diabetes: No Hx Sickle Cell Disease: Yes Hx Arthritis: Yes Hx Asthma: No Hx COPD: No Hx HIV: No Additional medical history: ANEMIA, multiple port infections - Surgical History Hx Cholecystectomy: Yes Additional Surgical History: , port removed June 2014. PICC line left upper arm (11/19/2014). Most recent port 2 weeks ago her right subclavian. - Social History Smoking Status: Never Smoker Substance Use Type: None - Medications Home Medications: Home Medications Medication Instructions Recorded Confirmed Last Taken Type Folic Acid [Folvite] 1 mg PO DAILY #30 tablet 07/29/16 12/16/16 Unknown Rx Hydroxyurea [Hydrea] 500 mg PO QDAY #60 capsule 07/29/16 12/16/16 Unknown Rx Lisinopril [Zestril TAB] 40 mg PO QDAY #30 tablet 12/02/16 12/16/16 Unknown Rx amLODIPine [Norvasc] 10 mg PO QDAY #30 tablet 12/02/16 12/16/16 Unknown Rx cloNIDine [Catapres] 0.1 mg PO TID 12/16/16 12/16/16 Unknown History Doxycycline [Vibramycin CAP] 100 mg PO Q12HR #14 capsule 12/18/16 Unknown Rx Ketorolac [Toradol] 10 mg PO Q6H PRN #20 tablet 01/02/17 Unknown Rx oxyCODONE [Roxicodone] 5 mg PO Q6HR PRN #15 tablet 01/02/17 Unknown Rx Oxycodone HCl/Acetaminophen 1 each PO Q6HR PRN #14 tablet 02/12/17 Unknown Rx [Percocet 10/325 mg] oxyCODONE /ACETAMINOPHEN [Percocet 1 tab PO Q6HR PRN #10 tablet 02/23/17 Unknown Rx 5/325] Oxycodone HCl/Acetaminophen 1 each PO Q6HR PRN #20 tablet 04/16/17 Unknown Rx [Percocet 10/325 mg] ED Physical Exam - General Limitations: No Limitations - Other Other exam information: General: No limitations, patient is alert in no acute distress Head exam: Atraumatic, normocephalic Eyes exam: Normal appearance ENT: Moist mucous membrane Neck exam: Normal inspection, full range of motion, no meningismus nontender Respiratory exam: Clear to auscultation bilateral, no wheezes, rales, crackles Cardiovascular: Normal rate and rhythm, normal heart sounds Abdomen: Soft, nondistended, and nontender, with normal bowel sounds, no rebound, or guarding Extremity: Full range of motion normal inspection no deformity Back: Normal Inspection, full range of motion, no tenderness Neurologic: Alert, oriented x3, cranial nerves intact, no motor or sensory deficit Psychiatric: normal affect, normal mood Skin: Warm, dry, intact ED Course Vital Signs 04/16/17 04/16/17 04/16/17 07:56 10:29 11:25 Temperature 98.8 F 98.7 F Pulse Rate 91 H 72 Respiratory 20 18 16 Rate Blood Pressure 160/100 Blood Pressure 184/87 [Left] O2 Sat by Pulse 100 97 97 Oximetry 04/16/17 04/16/17 04/16/17 11:44 11:45 12:15 Temperature 98.5 F 98.2 F 98.2 F Pulse Rate 72 72 72 Respiratory 16 18 18 Rate Blood Pressure Blood Pressure 170/84 177/81 164/80 [Left] O2 Sat by Pulse 97 100 100 Oximetry 04/16/17 04/16/17 12:28 12:52 Temperature Pulse Rate 71 70 Respiratory 16 16 Rate Blood Pressure Blood Pressure 171/82 157/85 [Left] O2 Sat by Pulse 100 100 Oximetry - Reevaluation(s) Reevaluation #1: 04/16/17 14:37 Patient received 2 separate doses of 2 mg Dilaudid IV, Zofran, Toradol, and Benadryl with improvement in pain. ED Medical Decision Making - Lab Data Result diagrams: 04/16/17 11:10 Lab Results 04/16/17 Range/Units 11:10 WBC 20.9 H (4.5-11.0) K/mm3 RBC 2.49 L (3.65-5.03) M/mm3 Hgb 7.7 L (10.1-14.3) gm/dl Hct 22.9 L (30.3-42.9) % MCV 92 (79-97) fl MCH 31 (28-32) pg MCHC 34 (30-34) % RDW 21.5 H (13.2-15.2) % Plt Count 430 (140-440) K/mm3 Lymph # [employer] Landscape Add Manual Diff Complete Total Counted 100 Seg Neuts % (Manual) 58.0 (40.0-70.0) % Band Neutrophils % 2.0 % Lymphocytes % (Manual) 31.0 (13.4-35.0) % Reactive Lymphs % (Man) 1.0 % Monocytes % (Manual) 5.0 (0.0-7.3) % Eosinophils % (Manual) 3.0 (0.0-4.3) % Basophils % (Manual) 0 (0.0-1.8) % Metamyelocytes % 0 % Myelocytes % 0 % Promyelocytes % 0 % Blast Cells % 0 % Nucleated RBC % 4.0 H (0.0-0.9) % Seg Neutrophils # Man 12.1 H (1.8-7.7) K/mm3 Band Neutrophils # 0.4 K/mm3 Lymphocytes # (Manual) 6.5 H (1.2-5.4) K/mm3 Abs React Lymphs (Man) 0.2 K/mm3 Monocytes # (Manual) 1.0 H (0.0-0.8) K/mm3 Eosinophils # (Manual) 0.6 H (0.0-0.4) K/mm3 Basophils # (Manual) 0.0 (0.0-0.1) K/mm3 Metamyelocytes # 0.0 K/mm3 Myelocytes # 0.0 K/mm3 Promyelocytes # 0.0 K/mm3 Blast Cells # 0.0 K/mm3 WBC Morphology Not Reportable Hypersegmented Neuts Not Reportable Hyposegmented Neuts Not Reportable Hypogranular Neuts Not Reportable Smudge Cells Not Reportable Toxic Granulation Not Reportable Toxic Vacuolation Not Reportable Dohle Bodies Not Reportable Pelger-Huet Anomaly Not Reportable Ariadne Rods Not Reportable Platelet Estimate Appears normal Clumped Platelets Not Reportable Plt Clumps, EDTA Not Reportable Large Platelets Not Reportable Giant Platelets Not Reportable Platelet Satelliting Not Reportable Plt Morphology Comment Not Reportable RBC Morphology Not Reportable Dimorphic RBCs Not Reportable Polychromasia 1+ Hypochromasia 1+ Poikilocytosis Not Reportable Anisocytosis 1+ Microcytosis Not Reportable Macrocytosis Not Reportable Spherocytes Not Reportable Pappenheimer Bodies Not Reportable Sickle Cells 1+ Target Cells 1+ Tear Drop Cells Not Reportable Ovalocytes Not Reportable Helmet Cells Not Reportable Walters-[place] Bodies Not Reportable [place] Rings Not Reportable Betsy Cells Not Reportable Bite Cells Not Reportable Crenated Cell Not Reportable Elliptocytes Not Reportable Acanthocytes (Spur) Not Reportable Rouleaux Not Reportable Hemoglobin C Crystals Not Reportable Schistocytes Not Reportable Malaria parasites Not Reportable Percent Retic 15.44 H (0.78-2.58) % Alexis Bodies Not Reportable Hem Pathologist Commnt No - Radiology Data Radiology results: report reviewed (chest x-ray: Cardiomegaly increased lung markings centrally and sickle cell bony changes again noted. No acute findings) - Medical Decision Making Patient has anemia but states she is typically transfused when her hemoglobin is 5-6 range. Patient also has significant leukocytosis but typically has elevated they be seeking out with her sickle cell crisis multiple times in the past. Patient states she feels well enough to go home and requested Percocet for pain. Does not complain of any infectious symptoms other than cough and chest are does not reveal infiltrate or pneumonia. Elevated blood pressure improved with pain management. - Differential Diagnosis sickle cell crisis, drug-seeking, anemia, infection Critical Care Time: No Critical care attestation.: If time is entered above; I have spent that time in minutes in the direct care of this critically ill patient, excluding procedure time. ED Disposition Clinical Impression: Sickle cell pain crisis, Leukocytosis Disposition: DC-01 TO HOME OR SELFCARE Is pt being admited?: No Condition: Stable Instructions: Sickle Cell Crisis (ED) Additional Instructions: Today your hemoglobin is 7.7 and your White blood cell count is 20. You do not have signs of infection at this time. However, if you developed fever or worsening symptoms please return to the ER as soon as possible for reevaluation. Otherwise, follow very close with your lead installer for further treatment. Prescriptions: Oxycodone HCl/Acetaminophen [Percocet 10/325 mg] 1 each PO Q6HR PRN #20 tablet PRN Reason: Pain Referrals: MD Brian [Other] - 24 Hours (lead installer) Time of Disposition: 14:41
[2017-04-16] MEDS ORDERED: FLUSH HEPARIN IV ONE ×2 (14:57→15:35)
== END 2017-04-16 15:37 | disposition home or self-care (01) ==
LOC: ED 07:49
DX: D57.00 Hb-SS disease with crisis, unspecified (principal); D72.829 Elevated white blood cell count, unspecified; I10 Essential (primary) hypertension; M19.90 Unspecified osteoarthritis, unspecified site; D64.9 Anemia, unspecified
CPT/HCPCS: 36415; 71020; 85007; 85025; 85045; 96361; 96374; 96375; 96376; 99284; J1170; J1200; J1642; J1885; J2250; J2405

== ENCOUNTER 2017-06-05 06:07 | Emergency (ER) | payer MEDICAID ==
[2017-06-05 06:21] VITALS: BP 162/101
== END 2017-06-05 07:00 | disposition left against medical advice (07) ==
LOC: ED 06:07
DX: Z53.21 Procedure and treatment not carried out due to patient leaving prior to being seen by health care provider (principal)

== ENCOUNTER 2017-06-14 06:32 | Emergency (ER) | payer MEDICAID ==
[2017-06-14] MEDS ORDERED: D5NS 0.2% 1,000 ML IV SCH (07:00)
[2017-06-14 09:55] LABS: Basophils % (Auto) 0.9 % (0.0-1.8); Eosinophils % (Auto) 1.4 % (0.0-4.3); Hematocrit 26.5 % (30.3-42.9); Hemoglobin 9.1 gm/dl (10.1-14.3); Mean Corpuscular HGB Conc 34 % (30-34); Mean Corpuscular Hemoglobin 32 pg (28-32); Mean Corpuscular Volume 92 fl (79-97); Platelet Count 466 K/mm3 (140-440); Red Blood Count 2.89 M/mm3 (3.65-5.03); Red Cell Distribution Width 17.8 % (13.2-15.2); Reticulocyte % 6.56 % (0.78-2.58); White Blood Count 14.6 K/mm3 (4.5-11.0)
[2017-06-14] MEDS ORDERED: MORPHINE IV ONE (09:58)
[2017-06-14] MEDS ORDERED: ZOFRAN IV ONE (09:58)
[2017-06-14] MEDS ORDERED: NACL 0.9% 1000 ML 1,000 ML IV ONE (09:58)
--- NOTE | 2017-06-14 10:04 | Emergency Department Report ---
ED General Adult HPI - General Chief complaint: Sickle Cell Crisis Stated complaint: SICKLE CELL PAIN Time Seen by Provider: 06/14/17 09:44 Source: patient Mode of arrival: Ambulatory Limitations: No Limitations - History of Present Illness Initial comments: Ms. Mendoza is a 31 years old female, history of sickle cell disease, and was generalized body pain that started last night due for 4 hours sickle cell crisis. Denied any nausea or vomiting no headache no chest pain no urinary symptoms, no other complaints. -: Last night Radiation: back, neck, extremity Quality: aching Consistency: constant - Related Data Home Medications Medication Instructions Recorded Confirmed Last Taken cloNIDine [Catapres] 0.1 mg PO TID 12/16/16 12/16/16 Unknown Previous Rx's Medication Instructions Recorded Last Taken Type Folic Acid [Folvite] 1 mg PO DAILY #30 tablet 07/29/16 Unknown Rx Hydroxyurea [Hydrea] 500 mg PO QDAY #60 capsule 07/29/16 Unknown Rx Lisinopril [Zestril TAB] 40 mg PO QDAY #30 tablet 12/02/16 Unknown Rx amLODIPine [Norvasc] 10 mg PO QDAY #30 tablet 12/02/16 Unknown Rx Doxycycline [Vibramycin CAP] 100 mg PO Q12HR #14 capsule 12/18/16 Unknown Rx Ketorolac [Toradol] 10 mg PO Q6H PRN #20 tablet 01/02/17 Unknown Rx oxyCODONE [Roxicodone] 5 mg PO Q6HR PRN #15 tablet 01/02/17 Unknown Rx Oxycodone HCl/Acetaminophen 1 each PO Q6HR PRN #14 tablet 02/12/17 Unknown Rx [Percocet 10/325 mg] oxyCODONE /ACETAMINOPHEN [Percocet 1 tab PO Q6HR PRN #10 tablet 02/23/17 Unknown Rx 5/325] Oxycodone HCl/Acetaminophen 1 each PO Q6HR PRN #20 tablet 04/16/17 Unknown Rx [Percocet 10/325 mg] Ondansetron [Zofran Odt] 4 mg PO Q8HR PRN #14 tab.rapdis 06/14/17 Unknown Rx oxyCODONE /ACETAMINOPHEN [Percocet 1 tab PO Q6HR PRN #10 tablet 06/14/17 Unknown Rx 5/325] Allergies Allergy/AdvReac Type Severity Reaction Status Date / Time No Known Allergies Allergy Verified 03/29/17 08:56 ED Review of Systems ROS: Stated complaint: SICKLE CELL PAIN Other details as noted in HPI Comment: All other systems reviewed and negative Constitutional: denies: chills, diaphoresis Respiratory: denies: cough, shortness of breath Cardiovascular: denies: chest pain, palpitations, dyspnea on exertion Gastrointestinal: denies: abdominal pain, nausea, vomiting, diarrhea Musculoskeletal: back pain, arthralgia, myalgia Skin: denies: rash, lesions Neurological: denies: headache, weakness, numbness, paresthesias, confusion, abnormal gait ED Past Medical Hx - Past Medical History Previous Medical History?: Yes Hx Hypertension: Yes (Since 2001) Hx Heart Attack/AMI: No Hx Congestive Heart Failure: No Hx Diabetes: No Hx Sickle Cell Disease: Yes Hx Arthritis: Yes Hx Asthma: No Hx COPD: No Hx HIV: No Additional medical history: ANEMIA, multiple port infections - Surgical History Past Surgical History?: Yes Hx Cholecystectomy: Yes Additional Surgical History: , port removed June 2014. PICC line left upper arm (11/19/2014). . - Social History Smoking Status: Never Smoker Substance Use Type: None - Medications Home Medications: Home Medications Medication Instructions Recorded Confirmed Last Taken Type Folic Acid [Folvite] 1 mg PO DAILY #30 tablet 07/29/16 12/16/16 Unknown Rx Hydroxyurea [Hydrea] 500 mg PO QDAY #60 capsule 07/29/16 12/16/16 Unknown Rx Lisinopril [Zestril TAB] 40 mg PO QDAY #30 tablet 12/02/16 12/16/16 Unknown Rx amLODIPine [Norvasc] 10 mg PO QDAY #30 tablet 12/02/16 12/16/16 Unknown Rx cloNIDine [Catapres] 0.1 mg PO TID 12/16/16 12/16/16 Unknown History Doxycycline [Vibramycin CAP] 100 mg PO Q12HR #14 capsule 12/18/16 Unknown Rx Ketorolac [Toradol] 10 mg PO Q6H PRN #20 tablet 01/02/17 Unknown Rx oxyCODONE [Roxicodone] 5 mg PO Q6HR PRN #15 tablet 01/02/17 Unknown Rx Oxycodone HCl/Acetaminophen 1 each PO Q6HR PRN #14 tablet 02/12/17 Unknown Rx [Percocet 10/325 mg] oxyCODONE /ACETAMINOPHEN [Percocet 1 tab PO Q6HR PRN #10 tablet 02/23/17 Unknown Rx 5/325] Oxycodone HCl/Acetaminophen 1 each PO Q6HR PRN #20 tablet 04/16/17 Unknown Rx [Percocet 10/325 mg] Ondansetron [Zofran Odt] 4 mg PO Q8HR PRN #14 tab.rapdis 06/14/17 Unknown Rx oxyCODONE /ACETAMINOPHEN [Percocet 1 tab PO Q6HR PRN #10 tablet 06/14/17 Unknown Rx 5/325] ED Physical Exam - General Limitations: No Limitations General appearance: alert, in no apparent distress - Head Head exam: Present: atraumatic - Eye Eye exam: Present: normal appearance. Absent: scleral icterus - ENT ENT exam: Present: normal exam, normal orophraynx, mucous membranes dry - Neck Neck exam: Present: normal inspection, full ROM. Absent: tenderness, meningismus, lymphadenopathy - Respiratory Respiratory exam: Present: normal lung sounds bilaterally. Absent: respiratory distress, wheezes, rales, rhonchi, chest wall tenderness, accessory muscle use, decreased breath sounds, prolonged expiratory - Cardiovascular Cardiovascular Exam: Present: regular rate, normal rhythm, normal heart sounds - GI/Abdominal GI/Abdominal exam: Present: soft. Absent: distended, tenderness, guarding, rebound, rigid, normal bowel sounds, diminished bowel sounds, hyperactive bowel sounds, hypoactive bowel sounds, organomegaly, mass, bruit, pulsatile mass, hernia - Back Exam Back exam: Present: normal inspection. Absent: full ROM, CVA tenderness (R), CVA tenderness (L), muscle spasm, paraspinal tenderness, vertebral tenderness - Neurological Exam Neurological exam: Present: alert, oriented X3, CN II-XII intact - Skin Skin exam: Present: warm, dry, normal color ED Course Vital Signs 06/14/17 06/14/17 06:37 10:08 Temperature 98.7 F 98.9 F Pulse Rate 92 H 89 Respiratory 18 20 Rate Blood Pressure 161/98 Blood Pressure 156/74 [Right] O2 Sat by Pulse 96 99 Oximetry - Reevaluation(s) Reevaluation #1: 06/14/17 11:45 Reviewed patient's labs her reticulocyte count is 6.5 which is baseline. Hemoglobin is 9. Patient received morphine with 12.5 mg of Benadryl for pain control she says she is feeling better we'll discharge home to follow up with her primary doctor. ED Medical Decision Making - Lab Data Result diagrams: 06/14/17 09:45 06/14/17 09:45 Critical care attestation.: If time is entered above; I have spent that time in minutes in the direct care of this critically ill patient, excluding procedure time. ED Disposition Clinical Impression: Anemia, sickle cell with crisis Disposition: DC-01 TO HOME OR SELFCARE Is pt being admited?: No Condition: Stable Referrals: PRIMARY CARE, [Primary Care Provider] - 3-5 Days
[2017-06-14 10:09] VITALS: BP 156/74
[2017-06-14 11:03] LABS: Alanine Aminotransferase 34 units/L (7-56); Albumin 3.6 g/dL (3.9-5); Albumin/Globulin Ratio 0.9 %; Alkaline Phosphatase 113 units/L (35-129); Anion Gap 17 mmol/L; BUN/Creatinine Ratio 11.66; Bilirubin,Direct 0.5 mg/dL (0-0.2); Bilirubin,Indirect 1.9 mg/dL; Blood Urea Nitrogen 7 mg/dL (7-17); Calcium 8.9 mg/dL (8.4-10.2); Carbon Dioxide 24 mmol/L (22-30); Chloride 101.1 mmol/L (98-107); Glucose 107 mg/dL (65-100); Lipase 30 units/L (13-60); Potassium 3.3 mmol/L (3.6-5.0); Sodium 139 mmol/L (137-145); Total Protein 7.6 g/dL (6.3-8.2)
[2017-06-14 11:15] LABS: Bacteria,Urine 1+ /HPF (Negative); Bilirubin,Urine NEG (Negative); Blood,Urine NEG (Negative); Ketones,Urine NEG (Negative); Leukocyte Esterase,Urine SM (Negative); Nitrite,Urine NEG (Negative)
[2017-06-14 11:17] LABS: Protein,Urine >500 mg/dL (Negative)
[2017-06-14] MEDS ORDERED: BENADRYL IV ONE (11:44)
[2017-06-14] MEDS ORDERED: BENADRYL ONE (11:44)
[2017-06-14] MEDS ORDERED: FLUSH HEPARIN IV ONE (12:14)
== END 2017-06-14 12:23 | disposition home or self-care (01) ==
LOC: ED 06:32
DX: D57.00 Hb-SS disease with crisis, unspecified (principal); I10 Essential (primary) hypertension
CPT/HCPCS: 36415; 80048; 80074; 81001; 83690; 85025; 85045; 96361; 96374; 96375; 99283; J1200; J1642; J2270; J2405; J7030

== ENCOUNTER 2018-03-12 08:05 | Emergency (ER) | payer MEDICAID ==
[2018-03-12 08:49] LABS: Basophils # (Auto) 0.1 K/mm3 (0.0-0.1); Basophils % (Auto) 0.5 % (0.0-1.8); Eosinophils # (Auto) 1.4 K/mm3 (0.0-0.4); Eosinophils % (Auto) 8.3 % (0.0-4.3); Hematocrit 29.8 % (30.3-42.9); Hemoglobin 9.5 gm/dl (10.1-14.3); Lymphocytes # (Auto) 3.4 K/mm3 (1.2-5.4); Lymphocytes % (Auto) 19.6 % (13.4-35.0); Mean Corpuscular HGB Conc 32 % (30-34); Mean Corpuscular Hemoglobin 29 pg (28-32); Mean Corpuscular Volume 90 fl (79-97); Monocytes % (Auto) 5.8 % (0.0-7.3); Platelet Count 668 K/mm3 (140-440); Red Blood Count 3.31 M/mm3 (3.65-5.03); Red Cell Distribution Width 16.4 % (13.2-15.2)
[2018-03-12] MEDS ORDERED: D5NS 0.2% 1,000 ML IV SCH (09:00)
[2018-03-12] MEDS ORDERED: SUBLIMAZE IV ONE ×2 (20:02→21:00)
[2018-03-12] MEDS ORDERED: ZOFRAN IV ONE (20:02)
[2018-03-12] MEDS ORDERED: NACL 0.9% 1000 ML 1,000 ML IV ONE (20:02)
--- NOTE | 2018-03-12 20:06 | Emergency Department Report ---
ED General Adult HPI - General Chief complaint: Sickle Cell Crisis Stated complaint: SICKLE CELL Time Seen by Provider: 03/12/18 19:57 Source: patient Mode of arrival: Ambulatory Limitations: No Limitations - History of Present Illness Initial comments: Patient is a 32 years old female history of sickle cell disease presented to the ER complaining of generalized body pain mainly to the lower extremities. Patient denied any fever, nausea or vomiting. No chest pain. Patient denied any urinary symptoms recently. -: Gradual Severity scale (0 -10): 10 - Related Data Home Medications Medication Instructions Recorded Confirmed Last Taken cloNIDine [Catapres] 0.1 mg PO TID 12/16/16 12/16/16 Unknown Previous Rx's Medication Instructions Recorded Last Taken Type Folic Acid [Folvite] 1 mg PO DAILY #30 tablet 07/29/16 Unknown Rx Hydroxyurea [Hydrea] 500 mg PO QDAY #60 capsule 07/29/16 Unknown Rx Lisinopril [Zestril TAB] 40 mg PO QDAY #30 tablet 12/02/16 Unknown Rx amLODIPine [Norvasc] 10 mg PO QDAY #30 tablet 12/02/16 Unknown Rx Doxycycline [Vibramycin CAP] 100 mg PO Q12HR #14 capsule 12/18/16 Unknown Rx Ketorolac [Toradol] 10 mg PO Q6H PRN #20 tablet 01/02/17 Unknown Rx oxyCODONE [Roxicodone] 5 mg PO Q6HR PRN #15 tablet 01/02/17 Unknown Rx Oxycodone HCl/Acetaminophen 1 each PO Q6HR PRN #14 tablet 02/12/17 Unknown Rx [Percocet 10/325 mg] oxyCODONE /ACETAMINOPHEN [Percocet 1 tab PO Q6HR PRN #10 tablet 02/23/17 Unknown Rx 5/325] Oxycodone HCl/Acetaminophen 1 each PO Q6HR PRN #20 tablet 04/16/17 Unknown Rx [Percocet 10/325 mg] Ondansetron [Zofran Odt] 4 mg PO Q8HR PRN #14 tab.rapdis 06/14/17 Unknown Rx oxyCODONE /ACETAMINOPHEN [Percocet 1 tab PO Q6HR PRN #10 tablet 06/14/17 Unknown Rx 5/325] Ketorolac [Toradol] 10 mg PO Q6H PRN #20 tablet 03/12/18 Unknown Rx Allergies Allergy/AdvReac Type Severity Reaction Status Date / Time No Known Allergies Allergy Verified 03/29/17 08:56 ED Review of Systems ROS: Stated complaint: SICKLE CELL Other details as noted in HPI Comment: All other systems reviewed and negative Constitutional: denies: chills, fever Respiratory: denies: cough, orthopnea Cardiovascular: denies: chest pain, palpitations, dyspnea on exertion, orthopnea Gastrointestinal: denies: abdominal pain, nausea, vomiting, diarrhea, constipation, hematemesis, melena, hematochezia Neurological: denies: headache, weakness, numbness, paresthesias ED Past Medical Hx - Past Medical History Previous Medical History?: Yes Hx Hypertension: Yes (Since 2001) Hx Heart Attack/AMI: No Hx Congestive Heart Failure: No Hx Diabetes: No Hx Sickle Cell Disease: Yes Hx Arthritis: Yes Hx Asthma: No Hx COPD: No Hx HIV: No Additional medical history: ANEMIA, multiple port infections - Surgical History Past Surgical History?: Yes Hx Cholecystectomy: Yes Additional Surgical History: , port removed June 2014. PICC line left upper arm (11/19/2014). . - Social History Smoking Status: Never Smoker Substance Use Type: None - Medications Home Medications: Home Medications Medication Instructions Recorded Confirmed Last Taken Type Folic Acid [Folvite] 1 mg PO DAILY #30 tablet 07/29/16 12/16/16 Unknown Rx Hydroxyurea [Hydrea] 500 mg PO QDAY #60 capsule 07/29/16 12/16/16 Unknown Rx Lisinopril [Zestril TAB] 40 mg PO QDAY #30 tablet 12/02/16 12/16/16 Unknown Rx amLODIPine [Norvasc] 10 mg PO QDAY #30 tablet 12/02/16 12/16/16 Unknown Rx cloNIDine [Catapres] 0.1 mg PO TID 12/16/16 12/16/16 Unknown History Doxycycline [Vibramycin CAP] 100 mg PO Q12HR #14 capsule 12/18/16 Unknown Rx Ketorolac [Toradol] 10 mg PO Q6H PRN #20 tablet 01/02/17 Unknown Rx oxyCODONE [Roxicodone] 5 mg PO Q6HR PRN #15 tablet 01/02/17 Unknown Rx Oxycodone HCl/Acetaminophen 1 each PO Q6HR PRN #14 tablet 02/12/17 Unknown Rx [Percocet 10/325 mg] oxyCODONE /ACETAMINOPHEN [Percocet 1 tab PO Q6HR PRN #10 tablet 02/23/17 Unknown Rx 5/325] Oxycodone HCl/Acetaminophen 1 each PO Q6HR PRN #20 tablet 04/16/17 Unknown Rx [Percocet 10/325 mg] Ondansetron [Zofran Odt] 4 mg PO Q8HR PRN #14 tab.rapdis 06/14/17 Unknown Rx oxyCODONE /ACETAMINOPHEN [Percocet 1 tab PO Q6HR PRN #10 tablet 06/14/17 Unknown Rx 5/325] Ketorolac [Toradol] 10 mg PO Q6H PRN #20 tablet 03/12/18 Unknown Rx ED Physical Exam - General Limitations: No Limitations General appearance: alert, in no apparent distress - Head Head exam: Present: atraumatic, normocephalic, normal inspection - Eye Eye exam: Present: normal appearance, PERRL - ENT ENT exam: Present: normal exam, normal orophraynx, mucous membranes moist - Neck Neck exam: Present: normal inspection, full ROM. Absent: tenderness, meningismus - Respiratory Respiratory exam: Present: normal lung sounds bilaterally. Absent: respiratory distress, wheezes, rales, rhonchi, stridor, accessory muscle use, decreased breath sounds, prolonged expiratory - Cardiovascular Cardiovascular Exam: Present: regular rate, normal rhythm, normal heart sounds - GI/Abdominal GI/Abdominal exam: Present: soft, normal bowel sounds. Absent: distended, tenderness, guarding, rebound, rigid, organomegaly, mass, bruit, pulsatile mass , hernia - Extremities Exam Extremities exam: Present: normal inspection, full ROM, normal capillary refill - Back Exam Back exam: Present: normal inspection, full ROM. Absent: tenderness, CVA tenderness (R), CVA tenderness (L), muscle spasm, paraspinal tenderness, vertebral tenderness - Neurological Exam Neurological exam: Present: alert, oriented X3, CN II-XII intact, normal gait, reflexes normal - Skin Skin exam: Present: warm, intact, normal color ED Course Vital Signs 03/12/18 03/12/18 03/12/18 08:10 14:38 19:42 Temperature 98.3 F 99.1 F Pulse Rate 96 H 86 Respiratory 18 19 Rate Blood Pressure 188/101 171/89 Blood Pressure [Left] O2 Sat by Pulse 100 99 86 Oximetry 03/12/18 03/12/18 03/12/18 19:59 20:00 20:30 Temperature 98.5 F Pulse Rate 90 Respiratory 18 Rate Blood Pressure 180/91 178/97 Blood Pressure 175/109 [Left] O2 Sat by Pulse 99 100 100 Oximetry 03/12/18 21:00 Temperature Pulse Rate Respiratory Rate Blood Pressure 172/87 Blood Pressure [Left] O2 Sat by Pulse 100 Oximetry - Reevaluation(s) Reevaluation #1: 03/12/18 21:53 Patient stated that she is feeling much better, I reviewed labs and compared to the previous labs patient today had a reticulocyte count is 5% which is less than her baseline. I advised patient to follow his heart primary care physician and drink more fluids and to return to the ER if her symptoms are not improving. ED Medical Decision Making - Lab Data Result diagrams: 03/12/18 08:27 Critical care attestation.: If time is entered above; I have spent that time in minutes in the direct care of this critically ill patient, excluding procedure time. ED Disposition Clinical Impression: Sickle cell crisis Disposition: DC-01 TO HOME OR SELFCARE Is pt being admited?: No Condition: Stable Instructions: Sickle Cell Crisis (ED) Prescriptions: Ketorolac [Toradol] 10 mg PO Q6H PRN #20 tablet PRN Reason: Pain Referrals: PATTIE KEANE MD [Primary Care Provider] - 3-5 Days
[2018-03-12] MEDS ORDERED: TORADOL IV ONE (21:32)
[2018-03-12 21:36] VITALS: BP 172/87
== END 2018-03-12 22:00 | disposition home or self-care (01) ==
LOC: ED 08:05
DX: D57.00 Hb-SS disease with crisis, unspecified (principal); I10 Essential (primary) hypertension; M19.90 Unspecified osteoarthritis, unspecified site; Z90.49 Acquired absence of other specified parts of digestive tract
CPT/HCPCS: 36415; 85025; 85045; 96361; 96374; 96375; 99283; J1885; J2405; J3010; J7030; 99284

== ENCOUNTER 2019-04-22 06:03 | Inpatient (IN) | payer MEDICAID ==
[2019-04-22 08:26] LABS: Basophils # (Auto) 0.2 K/mm3 (0.0-0.1); Eosinophils # (Auto) 0.9 K/mm3 (0.0-0.4); Eosinophils % (Auto) 5.3 % (0.0-4.3); Monocytes # (Auto) 1.3 K/mm3 (0.0-0.8); Monocytes % (Auto) 7.6 % (0.0-7.3)
[2019-04-22 08:34] LABS: Bacteria,Urine 1+ /HPF (Negative); Bilirubin,Urine NEG (Negative); Blood,Urine NEG (Negative); Color,Urine Yellow (Yellow)
[2019-04-22 08:37] LABS: HCG Qualitative,Urine Negative (Negative); Protein,Urine >500 mg/dL (Negative)
[2019-04-22 08:44] LABS: Alanine Aminotransferase 35 units/L (7-56); Albumin 3.8 g/dL (3.9-5); BUN/Creatinine Ratio 11; Blood Urea Nitrogen 9 mg/dL (7-17); Calcium 9.1 mg/dL (8.4-10.2); Hemolysis Index 18
[2019-04-22 08:59] LABS: Basophils % (Auto) 1.3 % (0.0-1.8); Hematocrit 26.7 % (30.3-42.9); Lymphocytes # (Auto) 4.5 K/mm3 (1.2-5.4); Lymphocytes % (Auto) 25.9 % (13.4-35.0); Mean Corpuscular HGB Conc 34 % (30-34); Mean Corpuscular Volume 89 fl (79-97); Platelet Count 568 K/mm3 (140-440); Red Cell Distribution Width 17.7 % (13.2-15.2)
[2019-04-22] MEDS ORDERED: ZOFRAN IV ONE (10:20)
[2019-04-22] MEDS ORDERED: BENADRYL IV ONE ×2 (10:20→11:39)
[2019-04-22] MEDS ORDERED: DILAUDID IV ONE ×4 (10:20→14:24)
[2019-04-22] MEDS ORDERED: TORADOL IV ONE (10:20)
[2019-04-22] MEDS: D5NS 0.2% 1,000 ML IV SCH ×2 (10:34→16:36)
--- NOTE | 2019-04-22 11:09 | Emergency Department Report ---
ED General Adult HPI - General Chief complaint: Sickle Cell Crisis Stated complaint: SICKLE CELL CRISIS Time Seen by Provider: 04/22/19 10:11 Source: patient Mode of arrival: Ambulatory Limitations: No Limitations - History of Present Illness Initial comments: 33-year-old female with a past medical history sickle cell disease presents to hospital complaints of pain secondary to sickle cell crisis for the past 2 days. Patient has pain to lower back and bilateral legs. Pain is severe, constant, no aggravating or relieving factors. Pain is not helped by home meds which include methadone 10 mg daily and Percocet 10 mg. Patient denies fever, dysuri a, focal weakness, or focal numbness. Her liaison engineer: Dr. Verde Severity scale (0 -10): 9 - Related Data Home Medications Medication Instructions Recorded Confirmed Last Taken Hydroxyurea [Hydrea] 500 mg PO BID 03/19/19 03/19/19 Unknown Methadone [Dolophine] 10 mg PO BID 03/19/19 03/19/19 03/19/19 cloNIDine [Catapres] 0.2 mg PO BID 03/19/19 03/19/19 Unknown Previous Rx's Medication Instructions Recorded Last Taken Type Folic Acid [Folvite] 1 mg PO DAILY #30 tablet 07/29/16 Unknown Rx Lisinopril [Zestril TAB] 40 mg PO QDAY #30 tablet 12/02/16 03/19/19 Rx amLODIPine [Norvasc] 10 mg PO QDAY #30 tablet 12/02/16 03/19/19 Rx Oxycodone HCl/Acetaminophen 1 each PO Q6HR PRN #20 tablet 04/16/17 03/19/19 Rx [Percocet 10/325 mg] Allergies Allergy/AdvReac Type Severity Reaction Status Date / Time morphine Allergy Shortness Verified 03/19/19 08:27 of Breath ED Review of Systems ROS: Stated complaint: SICKLE CELL CRISIS Other details as noted in HPI Comment: All other systems reviewed and negative ED Past Medical Hx - Past Medical History Hx Hypertension: Yes Hx Heart Attack/AMI: No Hx Congestive Heart Failure: No Hx Diabetes: No Hx Sickle Cell Disease: Yes Hx Arthritis: Yes Hx Asthma: Yes Hx COPD: No Hx HIV: No Additional medical history: ANEMIA, multiple port infections - Surgical History Past Surgical History?: Yes Hx Cholecystectomy: Yes Additional Surgical History: , port removed June 2014. PICC line left upper arm (11/19/2014). . - Social History Smoking Status: Never Smoker Substance Use Type: None - Medications Home Medications: Home Medications Medication Instructions Recorded Confirmed Last Taken Type Folic Acid [Folvite] 1 mg PO DAILY #30 tablet 07/29/16 03/19/19 Unknown Rx Lisinopril [Zestril TAB] 40 mg PO QDAY #30 tablet 12/02/16 03/19/19 03/19/19 Rx amLODIPine [Norvasc] 10 mg PO QDAY #30 tablet 12/02/16 03/19/19 03/19/19 Rx Oxycodone HCl/Acetaminophen 1 each PO Q6HR PRN #20 tablet 04/16/17 03/19/19 03/19/19 Rx [Percocet 10/325 mg] Hydroxyurea [Hydrea] 500 mg PO BID 03/19/19 03/19/19 Unknown History Methadone [Dolophine] 10 mg PO BID 03/19/19 03/19/19 03/19/19 History cloNIDine [Catapres] 0.2 mg PO BID 03/19/19 03/19/19 Unknown History ED Physical Exam - General Limitations: No Limitations - Other Other exam information: General: No limitations, patient is alert in no acute distress Head exam: Atraumatic, normocephalic Eyes exam: Icteric sclerae, pupils equal and reactive to light ENT: Moist mucous membrane Neck exam: Normal inspection, full range of motion, no meningismus nontender Respiratory exam: Clear to auscultation bilateral, no wheezes, rales, crackles Cardiovascular: Normal rate and rhythm, normal heart sounds Abdomen: Soft, nondistended, and nontender, with normal bowel sounds, no rebound, or guarding Extremity: Full range of motion normal inspection no deformity, no calf tend erness or edema Back: Normal Inspection, full range of motion, no tenderness Neurologic: Alert, oriented x3, cranial nerves intact, no motor or sensory deficit Psychiatric: normal affect, normal mood Skin: Warm, dry, intact ED Course Vital Signs 04/22/19 04/22/19 06:11 08:34 Temperature 98.3 F 98.9 F Pulse Rate 92 H 88 Respiratory 18 16 Rate Blood Pressure 188/87 Blood Pressure 194/105 [Left] O2 Sat by Pulse 96 100 Oximetry - Reevaluation(s) Reevaluation #1: 04/22/19 13:50 Patient continues to have significant pain despite 3 separate 2 mg boluses of Dilaudid. Patient has a high pain tolerance given that she is likely on methadone and Percocet. Hospitalist will be informed of admission for intractable sickle cell related pain. ED Medical Decision Making - Lab Data Result diagrams: 04/22/19 08:10 04/22/19 08:10 Lab Results 04/22/19 04/22/19 04/22/19 Range/Units 08:10 08:10 08:16 WBC 17.3 H (4.5-11.0) K/mm3 RBC 3.00 L (3.65-5.03) M/mm3 Hgb 9.0 L (10.1-14.3) gm/dl Hct 26.7 L (30.3-42.9) % MCV 89 (79-97) fl MCH 30 (28-32) pg MCHC 34 (30-34) % RDW 17.7 H (13.2-15.2) % Plt Count 568 H (140-440) K/mm3 Lymph % (Auto) 25.9 (13.4-35.0) % [place] % (Auto) 7.6 H (0.0-7.3) % Eos % (Auto) 5.3 H (0.0-4.3) % Baso % (Auto) 1.3 (0.0-1.8) % Lymph # 4.5 (1.2-5.4) K/mm3 [place] # 1.3 H (0.0-0.8) K/mm3 Eos # 0.9 H (0.0-0.4) K/mm3 Baso # 0.2 H (0.0-0.1) K/mm3 Add Manual Diff Complete Seg Neutrophils % 59.9 (40.0-70.0) % Seg Neutrophils # 10.4 H (1.8-7.7) K/mm3 Percent Retic 16.06 H (0.78-2.58) % Sodium 139 (137-145) mmol/L Potassium 4.2 (3.6-5.0) mmol/L Chloride 101.9 (98-107) mmol/L Carbon Dioxide 27 (22-30) mmol/L Anion Gap 14 mmol/L BUN 9 (7-17) mg/dL Creatinine 0.8 (0.7-1.2) mg/dL Estimated GFR > 60 ml/min BUN/Creatinine Ratio 11 % Glucose 116 H (65-100) mg/dL Calcium 9.1 (8.4-10.2) mg/dL Total Bilirubin 1.80 H (0.1-1.2) mg/dL AST 37 (5-40) units/L ALT 35 (7-56) units/L Alkaline Phosphatase 162 H (35-129) units/L Total Protein 7.4 (6.3-8.2) g/dL Albumin 3.8 L (3.9-5) g/dL Albumin/Globulin Ratio 1.1 % Urine Color Yellow (Yellow) Urine Turbidity Clear (Clear) Urine pH 7.0 (5.0-7.0) Ur Specific [place] 1.009 (1.003-1.030) Urine Protein >500 (Negative) mg/dL Urine Glucose (UA) Neg (Negative) mg/dL Urine Ketones Neg (Negative) mg/dL Urine Blood Neg (Negative) Urine Nitrite Neg (Negative) Urine Bilirubin Neg (Negative) Urine Urobilinogen 4.0 (<2.0) mg/dL Ur Leukocyte Esterase Tr (Negative) Urine WBC (Auto) 1.0 (0.0-6.0) /HPF Urine RBC (Auto) 1.0 (0.0-6.0) /HPF U Epithel Cells (Auto) 2.0 (0-13.0) /HPF Urine Bacteria (Auto) 1+ (Negative) /HPF Urine HCG, Qual Negative (Negative) - Medical Decision Making Plan to admit patient to the hospital for persistent pain secondary to sickle cell crisis Patient received Dilaudid, Toradol, Zofran, Benadryl, and IV fluid - Differential Diagnosis sickle cell, anemia Critical Care Time: No Critical care attestation.: If time is entered above; I have spent that time in minutes in the direct care of this critically ill patient, excluding procedure time. ED Disposition Clinical Impression: Anemia, sickle cell with crisis, Hypertension Disposition: OP ADMIT IP TO THIS HOSP Is pt being admited?: Yes Condition: Stable Time of Disposition: 13:52 (Dr. Quiroz/hospitalist)
--- NOTE | 2019-04-22 16:35 | History and Physical Report ---
History of Present Illness Date of examination: 04/22/19 Date of admission: 04/22/19 14:08 Medications and Allergies Allergies Allergy/AdvReac Type Severity Reaction Status Date / Time morphine Allergy Shortness Verified 03/19/19 08:27 of Breath Home Medications Medication Instructions Recorded Confirmed Last Taken Type Folic Acid [Folvite] 1 mg PO DAILY #30 tablet 07/29/16 04/22/19 Unknown Rx Lisinopril [Zestril TAB] 40 mg PO QDAY #30 tablet 12/02/16 04/22/19 04/22/19 Rx amLODIPine [Norvasc] 10 mg PO QDAY #30 tablet 12/02/16 04/22/19 04/22/19 Rx Hydroxyurea [Hydrea] 500 mg PO DAILY 03/19/19 04/22/19 04/22/19 History Methadone [Dolophine] 10 mg PO BID 03/19/19 04/22/19 04/22/19 History cloNIDine [Catapres] 0.2 mg PO BID 03/19/19 04/22/19 Unknown History Oxycodone HCl/Acetaminophen 1 each PO Q4-6H PRN 04/22/19 04/22/19 04/22/19 History [Percocet 10/325 mg] Active Meds: Active Medications Dextrose/Sodium Chloride (D5ns 0.2%) 1,000 mls @ 250 mls/hr IV DIRECT CARIE Last Admin: 04/22/19 10:34 Dose: 250 mls/hr Documented by: Exam - Constitutional Vitals: Temp Pulse Resp BP Pulse Ox 98.2 F 74 18 176/96 97 04/22/19 16:23 04/22/19 16:23 04/22/19 16:23 04/22/19 16:23 04/22/19 16:23 Results - Labs CBC & Chem 7: 04/22/19 08:10 04/22/19 08:10 Labs: Laboratory Last Values WBC 17.3 K/mm3 (4.5-11.0) H 04/22/19 08:10 RBC 3.00 M/mm3 (3.65-5.03) L 04/22/19 08:10 Hgb 9.0 gm/dl (10.1-14.3) L 04/22/19 08:10 Hct 26.7 % (30.3-42.9) L 04/22/19 08:10 MCV 89 fl (79-97) 04/22/19 08:10 MCH 30 pg (28-32) 04/22/19 08:10 MCHC 34 % (30-34) 04/22/19 08:10 RDW 17.7 % (13.2-15.2) H 04/22/19 08:10 Plt Count 568 K/mm3 (140-440) H 04/22/19 08:10 Lymph % (Auto) 25.9 % (13.4-35.0) 04/22/19 08:10 [place] % (Auto) 7.6 % (0.0-7.3) H 04/22/19 08:10 Eos % (Auto) 5.3 % (0.0-4.3) H 04/22/19 08:10 Baso % (Auto) 1.3 % (0.0-1.8) 04/22/19 08:10 Lymph # 4.5 K/mm3 (1.2-5.4) 04/22/19 08:10 [place] # 1.3 K/mm3 (0.0-0.8) H 04/22/19 08:10 Eos # 0.9 K/mm3 (0.0-0.4) H 04/22/19 08:10 Baso # 0.2 K/mm3 (0.0-0.1) H 04/22/19 08:10 Add Manual Diff Complete 04/22/19 08:10 Seg Neutrophils % 59.9 % (40.0-70.0) 04/22/19 08:10 Seg Neutrophils # 10.4 K/mm3 (1.8-7.7) H 04/22/19 08:10 Percent Retic 16.06 % (0.78-2.58) H 04/22/19 08:10 Sodium 139 mmol/L (137-145) 04/22/19 08:10 Potassium 4.2 mmol/L (3.6-5.0) 04/22/19 08:10 Chloride 101.9 mmol/L (98-107) 04/22/19 08:10 Carbon Dioxide 27 mmol/L (22-30) 04/22/19 08:10 14 mmol/L 04/22/19 08:10 BUN 9 mg/dL (7-17) 04/22/19 08:10 0.8 mg/dL (0.7-1.2) 04/22/19 08:10 Estimated GFR > 60 ml/min 04/22/19 08:10 11 % 04/22/19 08:10 Glucose 116 mg/dL (65-100) H 04/22/19 08:10 Calcium 9.1 mg/dL (8.4-10.2) 04/22/19 08:10 1.80 mg/dL (0.1-1.2) H 04/22/19 08:10 AST 37 units/L (5-40) 04/22/19 08:10 ALT 35 units/L (7-56) 04/22/19 08:10 162 units/L (35-129) H 04/22/19 08:10 7.4 g/dL (6.3-8.2) 04/22/19 08:10 3.8 g/dL (3.9-5) L 04/22/19 08:10 1.1 % 04/22/19 08:10 Yellow (Yellow) 04/22/19 08:16 Clear (Clear) 04/22/19 08:16 7.0 (5.0-7.0) 04/22/19 08:16 Ur Specific [place] 1.009 (1.003-1.030) 04/22/19 08:16 >500 mg/dL (Negative) 04/22/19 08:16 Neg mg/dL (Negative) 04/22/19 08:16 Neg mg/dL (Negative) 04/22/19 08:16 Neg (Negative) 04/22/19 08:16 Neg (Negative) 04/22/19 08:16 Neg (Negative) 04/22/19 08:16 4.0 mg/dL (<2.0) 04/22/19 08:16 Ur Leukocyte Esterase Tr (Negative) 04/22/19 08:16 1.0 /HPF (0.0-6.0) 04/22/19 08:16 1.0 /HPF (0.0-6.0) 04/22/19 08:16 U Epithel Cells (Auto) 2.0 /HPF (0-13.0) 04/22/19 08:16 1+ /HPF (Negative) 04/22/19 08:16 Urine HCG, Qual Negative (Negative) 04/22/19 08:16
[2019-04-22] MEDS ORDERED: NON-FORMULARY (Oxycodone Hcl/Acetaminophen [Percocet 10/325 Mg] 1 EACH) PO PRN (16:36)
[2019-04-22] MEDS ORDERED: ZOFRAN IV PRN (16:41)
[2019-04-22] MEDS ORDERED: PHENERGAN PR PRN (16:41)
[2019-04-22] MEDS ORDERED: TYLENOL PO PRN (16:41)
[2019-04-22] MEDS ORDERED: PERCOCET 5/325 PO PRN (17:35)
[2019-04-22] MEDS: DILAUDID IV PRN ×2 (17:41→21:59)
[2019-04-22] MEDS: FOLVITE PO SCH (17:42)
[2019-04-22] MEDS: BENADRYL IV PRN (17:42)
[2019-04-22] MEDS: D5NS 1,000 ML IV SCH (19:57)
[2019-04-22] MEDS: CATAPRES PO SCH (22:00)
[2019-04-22] MEDS: SODIUM CHLORIDE FLUSH SYRINGE 10 ML IV SCH (22:00)
[2019-04-22] MEDS: PEPCID IV SCH (22:00)
[2019-04-22] MEDS: DOLOPHINE PO SCH (22:01)
[2019-04-22] MEDS: ZESTRIL PO SCH (22:01)
[2019-04-22] MEDS: NORVASC PO SCH (22:02)
[2019-04-22] MEDS: HYDREA PO SCH (22:06)
[2019-04-23] MEDS: BENADRYL IV PRN ×4 (01:41→21:50)
[2019-04-23] MEDS: D5NS 0.2% 1,000 ML IV SCH ×3 (01:41→14:04)
[2019-04-23] MEDS: DILAUDID IV PRN ×7 (01:42→21:49)
[2019-04-23] MEDS: D5NS 1,000 ML IV SCH (05:52)
--- NOTE | 2019-04-23 06:49 | Event Note ---
Date: 04/22/19 See H/p in reports [place] crises Leukocytosis
[2019-04-23] MEDS ORDERED: LEVAQUIN 750MG/150ML 750 MG/150 ML BAG IV SCH (06:50)
[2019-04-23 06:56] LABS: Basophils # (Auto) 0.1 K/mm3 (0.0-0.1); Basophils % (Auto) 1.1 % (0.0-1.8); Eosinophils % (Auto) 7.2 % (0.0-4.3); Hematocrit 24.5 % (30.3-42.9); Hemoglobin 8.3 gm/dl (10.1-14.3); Lymphocytes # (Auto) 3.4 K/mm3 (1.2-5.4); Lymphocytes % (Auto) 24.7 % (13.4-35.0); Mean Corpuscular HGB Conc 34 % (30-34); Mean Corpuscular Volume 91 fl (79-97); Monocytes % (Auto) 7.7 % (0.0-7.3); Platelet Count 530 K/mm3 (140-440); Red Cell Distribution Width 17.8 % (13.2-15.2)
[2019-04-23 07:07] LABS: Albumin 3.4 g/dL (3.9-5)
[2019-04-23 07:19] LABS: Alanine Aminotransferase 27 units/L (7-56); BUN/Creatinine Ratio 11; Blood Urea Nitrogen 9 mg/dL (7-17); Calcium 8.4 mg/dL (8.4-10.2); Hemolysis Index 11
[2019-04-23] MEDS: HYDREA PO SCH (10:00)
[2019-04-23] MEDS: SODIUM CHLORIDE FLUSH SYRINGE 10 ML IV SCH ×2 (10:00→22:02)
--- NOTE | 2019-04-23 10:26 | History and Physical Report ---
CHIEF COMPLAINT: Pain all over for the past 2 days, especially the lower back and bilateral legs. HISTORY OF PRESENT ILLNESS: A 33-year-old -[place] female with history of sickle cell anemia and sickle cell crisis, comes in for severe pain all over, especially the lower back and both legs. Intermittent, sharp and is about 10 on a scale of 1-10. The patient is on methadone and Percocet at home. No shortness of breath. No nausea, no vomiting. No orthopnea. No fever or chills. PAST MEDICAL HISTORY: Significant for hypertension and sickle cell anemia, sickle cell disease and sickle cell crisis. PAST SURGICAL HISTORY: Cholecystectomy, , port removal in 2013, PICC line in the left upper extremity. SOCIAL HISTORY: Does not smoke. FAMILY HISTORY: Hypertension. CURRENT MEDICATIONS: Lisinopril 40 mg once a day, amlodipine 10 mg once a day, methadone 10 mg twice a day, hydroxyurea 500 mg twice a day, Percocet 10 mg 4 times a day. REVIEW OF SYSTEMS: Significant for pain all over and shortness of breath. Pain is about 10 on a scale of 1-10, more in the legs than the lower back and the chest. Otherwise, review of systems negative. PHYSICAL EXAMINATION: GENERAL: Young female, cooperative during the examination. VITAL SIGNS: Blood pressure is 172/90 and 144/78, temperature is 98, pulse is 73, respirations are 18. HEENT: Unremarkable. Pupils equal and reactive. NECK: Supple, no lymphadenopathy, no thyromegaly. LUNGS: Clear to auscultation and percussion. Good air entry. CARDIOVASCULAR: S1, S2 heard. No gallop, no murmur, no rub. Apical impulse in left fifth intercostal space and midclavicular line. ABDOMEN: Soft and benign. No hepatosplenomegaly. No guarding, no rigidity. Hernial orifices are normal. EXTREMITIES: Good pedal pulses. No pedal edema. CENTRAL NERVOUS SYSTEM: Alert and oriented x 4, nonfocal exam. LABORATORY DATA: White count is 17,300, H and H is 9.0 and 26.7, platelet count is 568,000. Electrolytes are normal, glucose is 116, total bilirubin is 1.8, alkaline phosphatase is 162, albumin is 3.8. Retic count is 16%. ASSESSMENT AND PLAN: 1. Sickle cell crisis. The patient started on IV Dilaudid 2 grams IV q.3 hours. Also, IV normal saline at 125 mL per hour. Hematology/Oncology consult requested. Hydroxyurea to be continued. 2. Leukocytosis, possible demargination. The patient initiated on IV Levaquin for broad-spectrum coverage. Antibiotics may be deescalated. 3. Hyperbilirubinemia secondary to hemolysis. 4. Malnutrition, mild. Dietary supplements ordered. 5. Deep venous thrombosis prophylaxis, Lovenox 40 mg subcutaneous daily. JOB# [id number] VSM/NTS MTDD
[2019-04-23] MEDS: DOLOPHINE PO SCH ×2 (11:24→21:57)
[2019-04-23] MEDS: PEPCID IV SCH (11:24)
[2019-04-23] MEDS: NORVASC PO SCH (11:25)
[2019-04-23] MEDS: ZESTRIL PO SCH (11:25)
[2019-04-23] MEDS: FOLVITE PO SCH (11:25)
[2019-04-23] MEDS: CATAPRES PO SCH ×2 (11:26→21:57)
[2019-04-23] MEDS ORDERED: APRESOLINE IV PRN (14:23)
--- NOTE | 2019-04-23 14:25 | Progress Note ---
Assessment and Plan Assessment and plan: Patient is a 33 yo man with a history of hypertension, double pneumonia s/p Intubation x 1.5 months at [facility] and sickle cell disorder who presents with back pains and bilateral leg pains typical of prior sickle cell pain crisis. -Sickle cell vaso-occlusive crisis: changed to hypotenic IV solution, iv pains medication -Accelerated Hypertension with urgency: low salt diet, on clonidine -Cough: get CXR, on levaquin -SIRS, poa without infectious source so far: supportive care, on Levaquin and follow WBC -Malnutrition, mild: dietary education done -Hemolytic anemia: Heme/onc consulted DVT ppx with lovenox History Interval history: Patient was seen and examined. Follow-up on current diagnosis of SS pain crisis. No overnight events reported to me. Patient denies any chest pain, shortness breath, nausea/vomiting or severe headaches. Imaging, nursing note, chart, labs and old chart reviewed. Discussed with patient. 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 She denies headaches Gen: WDWN, NAD, Awake, Alert, Orientated HEENT: NCAT, EOMI, PERRL, OP Clear Neck: supple, no adenopathy, no thyromegaly, no JVD CVS/Heart: RRR, normal S1S2, pulses present bilaterally Chest/Lungs: CTA B, Symmetrical chest expansion, good air entry bilaterally GI/Abdomen: soft, NTND, good bowel sounds, no guarding or rebound /Bladder: no suprapubic tenderness, no CVA or paraspinal tenderness Extermity/Skin: no c/c/e, no obvious rash MSK: FROM x 4 Neuro: CN 2-12 grossly intact, no new focal deficits Psych: calm Hospitalist Physical - Constitutional Vitals: Temp Pulse Resp BP Pulse Ox 97.6 F 72 24 144/78 98 04/23/19 04:49 04/23/19 04:49 04/23/19 04:49 04/23/19 04:49 04/23/19 04:49 Results - Labs CBC & Chem 7: 04/23/19 06:30 04/23/19 06:30 Labs: Laboratory Last Values WBC 13.6 K/mm3 (4.5-11.0) H 04/23/19 06:30 RBC 2.70 M/mm3 (3.65-5.03) L 04/23/19 06:30 Hgb 8.3 gm/dl (10.1-14.3) L 04/23/19 06:30 Hct 24.5 % (30.3-42.9) L 04/23/19 06:30 MCV 91 fl (79-97) 04/23/19 06:30 MCH 31 pg (28-32) 04/23/19 06:30 MCHC 34 % (30-34) 04/23/19 06:30 RDW 17.8 % (13.2-15.2) H 04/23/19 06:30 Plt Count 530 K/mm3 (140-440) H 04/23/19 06:30 Lymph % (Auto) 24.7 % (13.4-35.0) 04/23/19 06:30 [place] % (Auto) 7.7 % (0.0-7.3) H 04/23/19 06:30 Eos % (Auto) 7.2 % (0.0-4.3) H 04/23/19 06:30 Baso % (Auto) 1.1 % (0.0-1.8) 04/23/19 06:30 Lymph # 3.4 K/mm3 (1.2-5.4) 04/23/19 06:30 [place] # 1.0 K/mm3 (0.0-0.8) H 04/23/19 06:30 Eos # 1.0 K/mm3 (0.0-0.4) H 04/23/19 06:30 Baso # 0.1 K/mm3 (0.0-0.1) 04/23/19 06:30 Add Manual Diff Complete 04/22/19 08:10 Seg Neutrophils % 59.3 % (40.0-70.0) 04/23/19 06:30 Seg Neutrophils # 8.1 K/mm3 (1.8-7.7) H 04/23/19 06:30 Percent Retic 16.06 % (0.78-2.58) H 04/22/19 08:10 Sodium 140 mmol/L (137-145) 04/23/19 06:30 Potassium 4.2 mmol/L (3.6-5.0) 04/23/19 06:30 Chloride 104.6 mmol/L (98-107) 04/23/19 06:30 Carbon Dioxide 26 mmol/L (22-30) 04/23/19 06:30 14 mmol/L 04/23/19 06:30 BUN 9 mg/dL (7-17) 04/23/19 06:30 0.8 mg/dL (0.7-1.2) 04/23/19 06:30 Estimated GFR > 60 ml/min 04/23/19 06:30 11 % 04/23/19 06:30 Glucose 114 mg/dL (65-100) H 04/23/19 06:30 5.1 % (4-6) 04/22/19 17:03 Calcium 8.4 mg/dL (8.4-10.2) 04/23/19 06:30 1.10 mg/dL (0.1-1.2) 04/23/19 06:30 AST 29 units/L (5-40) 04/23/19 06:30 ALT 27 units/L (7-56) 04/23/19 06:30 134 units/L (35-129) H 04/23/19 06:30 6.3 g/dL (6.3-8.2) 04/23/19 06:30 3.4 g/dL (3.9-5) L 04/23/19 06:30 1.2 % 04/23/19 06:30 Yellow (Yellow) 04/22/19 08:16 Clear (Clear) 04/22/19 08:16 7.0 (5.0-7.0) 04/22/19 08:16 Ur Specific [place] 1.009 (1.003-1.030) 04/22/19 08:16 >500 mg/dL (Negative) 04/22/19 08:16 Neg mg/dL (Negative) 04/22/19 08:16 Neg mg/dL (Negative) 04/22/19 08:16 Neg (Negative) 04/22/19 08:16 Neg (Negative) 04/22/19 08:16 Neg (Negative) 04/22/19 08:16 4.0 mg/dL (<2.0) 04/22/19 08:16 Ur Leukocyte Esterase Tr (Negative) 04/22/19 08:16 1.0 /HPF (0.0-6.0) 04/22/19 08:16 1.0 /HPF (0.0-6.0) 04/22/19 08:16 U Epithel Cells (Auto) 2.0 /HPF (0-13.0) 04/22/19 08:16 1+ /HPF (Negative) 04/22/19 08:16 Urine HCG, Qual Negative (Negative) 04/22/19 08:16 Active Medications - Current Medications Current Medications: Generic Name Dose Route Start Last Admin Trade Name Freq PRN Reason Stop Dose Admin Acetaminophen 650 mg 04/22/19 16:41 Tylenol PO Q4H PRN Pain MILD(1-3)/Fever >100.5/VILLA Amlodipine Besylate 10 mg 04/22/19 20:00 04/23/19 11:25 Norvasc PO 10 mg QDAY CARIE Administration Clonidine HCl 0.2 mg 04/22/19 22:00 04/23/19 11:26 Catapres PO 0.2 mg BID CARIE Administration Diphenhydramine HCl 25 mg 04/22/19 16:52 04/23/19 08:52 Benadryl IV 25 mg Q6H PRN Administration Itching Famotidine 20 mg 04/22/19 22:00 04/23/19 11:24 Pepcid IV 20 mg BID CARIE Administration Folic Acid 1 mg 04/22/19 17:00 04/23/19 11:25 Folvite PO 1 mg DAILY CARIE Administration Hydromorphone HCl 2 mg 04/22/19 16:41 04/23/19 12:07 Dilaudid IV 2 mg Q3H PRN Administration Pain , Severe (7-10) Hydroxyurea 500 mg 04/22/19 20:00 04/22/19 22:06 Hydrea PO 500 mg DAILY CARIE Administration Dextrose/Sodium Chloride 1,000 mls @ 100 mls/hr 04/23/19 09:00 04/23/19 14:04 D5ns 0.2% IV 100 mls/hr DIRECT CARIE Administration Lisinopril 40 mg 04/22/19 20:00 04/23/19 11:25 Zestril PO 40 mg QDAY CARIE Administration Methadone HCl 10 mg 04/22/19 22:00 04/23/19 11:24 Dolophine PO 10 mg BID CARIE Administration Ondansetron HCl 4 mg 04/22/19 16:41 Zofran IV Q8H PRN Nausea And Vomiting Oxycodone/Acetaminophen 2 tab 04/22/19 17:35 Percocet 5/325 PO Q4H PRN Pain, Moderate (4-6) Promethazine HCl 25 mg 04/22/19 16:41 Phenergan [place] Q6H PRN N/V IF NPO AND NO IV ACCESS Sodium Chloride 10 ml 04/22/19 22:00 04/22/19 22:00 Sodium Chloride Flush Syringe 10 Ml IV 10 ml BID CARIE Administration Sodium Chloride 10 ml 04/22/19 16:41 Sodium Chloride Flush Syringe 10 Ml IV PRN PRN LINE FLUSH
--- NOTE | 2019-04-23 15:00 | XRay Report ---
Chest 2 views: Compared to 03/20/19. History: Cough. Findings: Marked cardiomegaly. Trachea is midline. Stable left-sided port. No consolidation, pneumothorax or pleural effusion. No significant interval change. Impression No significant interval change.
--- NOTE | 2019-04-23 22:59 | Event Note ---
Date: 04/23/19 [id number]
[2019-04-24] MEDS: SODIUM CHLORIDE FLUSH SYRINGE 10 ML IV PRN ×3 (01:04→07:26)
[2019-04-24] MEDS: DILAUDID IV PRN ×8 (01:04→23:15)
[2019-04-24] MEDS: D5NS 0.2% 1,000 ML IV SCH ×4 (01:41→20:20)
[2019-04-24] MEDS: BENADRYL IV PRN ×4 (04:02→23:16)
--- NOTE | 2019-04-24 07:28 | Hem/Onc Progress Note ---
Assessment and Plan 1. Normocytic anemia, history of sickle cell disease. The patient came with pain issues. The patient is on pain medications. Dilaudid has been added. If there is no improvement, we will look into a [employer]++ [employer]. 2. Normocytic anemia. The patient is on hydroxyurea. She follows with Dr. Torres. 3. History of leukocytosis. 4. History of hyperbilirubinemia. 5. I will follow the patient during inpatient stay. pt with sickle cell will have some hemolysis hydration Subjective Date of service: 04/24/19 Principal diagnosis: sickle cell pain disease Interval history: pain slighlty better Objective - Constitutional Vitals: Last Vital Signs Temp 97.7 F 04/24/19 06:55 Pulse 62 04/24/19 06:55 Resp 20 04/24/19 06:55 BP 120/67 04/24/19 06:55 Pulse Ox 100 04/24/19 06:55 Pain Intensity (0-10): 3/10 General appearance: mild distress Performance status: 3-limited selfcare - EENT Eyes: EOM intact ENT: hearing intact Lymph node exam: negative cervical - Neck Neck: normal ROM - Respiratory Respiratory effort: Positive: normal Respiratory: bilateral: CTA - Cardiovascular Heart Sounds: Present: S1 & S2 Extremities: normal temperature - Gastrointestinal General gastrointestinal: Present: soft Rectal Exam: deferred - Genitourinary Female genitourinary: Present: deferred - Integumentary Integumentary: warm - Musculoskeletal Musculoskeletal: strength equal bilaterally - Neurologic Neurologic: moves all extremities Medications & Allergies - Medications Allergies/Adverse Reactions: Allergies morphine Allergy (Verified 03/19/19 08:27) Shortness of Breath Home Medications: Home Medications Medication Instructions Recorded Confirmed Last Taken Type RX: Folic Acid [Folvite] 1 mg PO DAILY #30 tablet 07/29/16 04/22/19 Unknown Rx RX: Lisinopril [Zestril TAB] 40 mg PO QDAY #30 tablet 12/02/16 04/22/19 04/22/19 Rx RX: amLODIPine [Norvasc] 10 mg PO QDAY #30 tablet 12/02/16 04/22/19 04/22/19 Rx RX: Hydroxyurea [Hydrea] 500 mg PO DAILY 03/19/19 04/22/19 04/22/19 History RX: Methadone [Dolophine] 10 mg PO BID 03/19/19 04/22/19 04/22/19 History RX: cloNIDine [Catapres] 0.2 mg PO BID 03/19/19 04/22/19 Unknown History RX: Oxycodone HCl/Acetaminophen 1 each PO Q4-6H PRN 04/22/19 04/22/19 04/22/19 History [Percocet 10/325 mg] Active Medications: Generic Name Dose Route Start Last Admin Trade Name Freq PRN Reason Stop Dose Admin Acetaminophen 650 mg 04/22/19 16:41 Tylenol PO Q4H PRN Pain MILD(1-3)/Fever >100.5/VILLA Amlodipine Besylate 10 mg 04/22/19 20:00 04/23/19 11:25 Norvasc PO 10 mg QDAY CARIE Administration Clonidine HCl 0.2 mg 04/22/19 22:00 04/23/19 21:57 Catapres PO 0.2 mg BID CARIE Administration Diphenhydramine HCl 25 mg 04/22/19 16:52 04/24/19 04:02 Benadryl IV 25 mg Q6H PRN Administration Itching Famotidine 20 mg 04/24/19 10:00 Pepcid PO QDAY CARIE Folic Acid 1 mg 04/22/19 17:00 04/23/19 11:25 Folvite PO 1 mg DAILY CARIE Administration Hydralazine HCl 10 mg 04/23/19 14:23 Apresoline IV Q4HR PRN Blood Pressure Hydromorphone HCl 2 mg 04/22/19 16:41 04/24/19 07:25 Dilaudid IV 2 mg Q3H PRN Administration Pain , Severe (7-10) Hydroxyurea 500 mg 04/22/19 20:00 04/23/19 10:00 Hydrea PO 500 mg DAILY CARIE Administration Dextrose/Sodium Chloride 1,000 mls @ 100 mls/hr 04/23/19 09:00 04/24/19 01:41 D5ns 0.2% IV 100 mls/hr DIRECT CARIE Administration Levofloxacin 750 mg 04/24/19 10:00 Levaquin PO Q24HR CARIE Lisinopril 40 mg 04/22/19 20:00 04/23/19 11:25 Zestril PO 40 mg QDAY CARIE Administration Methadone HCl 10 mg 04/22/19 22:00 04/23/19 21:57 Dolophine PO 10 mg BID CARIE Administration Ondansetron HCl 4 mg 04/22/19 16:41 Zofran IV Q8H PRN Nausea And Vomiting Oxycodone/Acetaminophen 2 tab 04/22/19 17:35 Percocet 5/325 PO Q4H PRN Pain, Moderate (4-6) Promethazine HCl 25 mg 04/22/19 16:41 Phenergan FL Q6H PRN N/V IF NPO AND NO IV ACCESS Sodium Chloride 10 ml 04/22/19 22:00 04/23/19 22:02 Sodium Chloride Flush Syringe 10 Ml IV 10 ml BID CARIE Administration Sodium Chloride 10 ml 04/22/19 16:41 04/24/19 07:26 Sodium Chloride Flush Syringe 10 Ml IV 10 ml PRN PRN Administration LINE FLUSH
--- NOTE | 2019-04-24 08:10 | Progress Note ---
Assessment and Plan Assessment and plan: Patient is a 33 yo man with a history of hypertension, remote past of double pneumonia s/p Intubation for one and half months at [facility] and sickle cell disorder who presents with back pains and bilateral leg pains typical of prior sickle cell pain crisis. -Sickle cell vaso-occlusive crisis: changed to hypotenic IV solution, iv pains medication -Accelerated Hypertension with urgency: low salt diet, on clonidine -Cough: CXR negative, on levaquin for acute bronchitis -SIRS, poa without infectious source so far: supportive care, on Levaquin and follow WBC -Malnutrition, mild: dietary education done -Hemolytic anemia: Heme/onc consulted DVT ppx with lovenox History Interval history: Patient was seen and examined. Follow-up on current diagnosis of SS pain crisis. No overnight events reported to me. Patient denies any chest pain, shortness breath, nausea/vomiting or severe headaches. Imaging, nursing note, chart, labs and old chart reviewed. Discussed with patient. 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 She denies headaches Hospitalist Physical - Physical exam Narrative exam: Gen: WDWN, NAD, Awake, Alert, Orientated HEENT: NCAT, EOMI, PERRL, OP Clear Neck: supple, no adenopathy, no thyromegaly, no JVD CVS/Heart: RRR, normal S1S2, pulses present bilaterally Chest/Lungs: CTA B, Symmetrical chest expansion, good air entry bilaterally GI/Abdomen: soft, NTND, good bowel sounds, no guarding or rebound /Bladder: no suprapubic tenderness, no CVA or paraspinal tenderness Extermity/Skin: no c/c/e, no obvious rash MSK: FROM x 4 Neuro: CN 2-12 grossly intact, no new focal deficits Psych: calm - Constitutional Vitals: Temp Pulse Resp BP Pulse Ox 97.7 F 62 20 120/67 100 04/24/19 06:55 04/24/19 06:55 04/24/19 06:55 04/24/19 06:55 04/24/19 06:55 Results - Labs CBC & Chem 7: 04/23/19 06:30 04/23/19 06:30 Labs: Laboratory Last Values WBC 13.6 K/mm3 (4.5-11.0) H 04/23/19 06:30 RBC 2.70 M/mm3 (3.65-5.03) L 04/23/19 06:30 Hgb 8.3 gm/dl (10.1-14.3) L 04/23/19 06:30 Hct 24.5 % (30.3-42.9) L 04/23/19 06:30 MCV 91 fl (79-97) 04/23/19 06:30 MCH 31 pg (28-32) 04/23/19 06:30 MCHC 34 % (30-34) 04/23/19 06:30 RDW 17.8 % (13.2-15.2) H 04/23/19 06:30 Plt Count 530 K/mm3 (140-440) H 04/23/19 06:30 Lymph % (Auto) 24.7 % (13.4-35.0) 04/23/19 06:30 [place] % (Auto) 7.7 % (0.0-7.3) H 04/23/19 06:30 Eos % (Auto) 7.2 % (0.0-4.3) H 04/23/19 06:30 Baso % (Auto) 1.1 % (0.0-1.8) 04/23/19 06:30 Lymph # 3.4 K/mm3 (1.2-5.4) 04/23/19 06:30 [place] # 1.0 K/mm3 (0.0-0.8) H 04/23/19 06:30 Eos # 1.0 K/mm3 (0.0-0.4) H 04/23/19 06:30 Baso # 0.1 K/mm3 (0.0-0.1) 04/23/19 06:30 Add Manual Diff Complete 04/22/19 08:10 Seg Neutrophils % 59.3 % (40.0-70.0) 04/23/19 06:30 Seg Neutrophils # 8.1 K/mm3 (1.8-7.7) H 04/23/19 06:30 Percent Retic 16.06 % (0.78-2.58) H 04/22/19 08:10 Sodium 140 mmol/L (137-145) 04/23/19 06:30 Potassium 4.2 mmol/L (3.6-5.0) 04/23/19 06:30 Chloride 104.6 mmol/L (98-107) 04/23/19 06:30 Carbon Dioxide 26 mmol/L (22-30) 04/23/19 06:30 14 mmol/L 04/23/19 06:30 BUN 9 mg/dL (7-17) 04/23/19 06:30 0.8 mg/dL (0.7-1.2) 04/23/19 06:30 Estimated GFR > 60 ml/min 04/23/19 06:30 11 % 04/23/19 06:30 Glucose 114 mg/dL (65-100) H 04/23/19 06:30 5.1 % (4-6) 04/22/19 17:03 Calcium 8.4 mg/dL (8.4-10.2) 04/23/19 06:30 1.10 mg/dL (0.1-1.2) 04/23/19 06:30 AST 29 units/L (5-40) 04/23/19 06:30 ALT 27 units/L (7-56) 04/23/19 06:30 134 units/L (35-129) H 04/23/19 06:30 6.3 g/dL (6.3-8.2) 04/23/19 06:30 3.4 g/dL (3.9-5) L 04/23/19 06:30 1.2 % 04/23/19 06:30 Yellow (Yellow) 04/22/19 08:16 Clear (Clear) 04/22/19 08:16 7.0 (5.0-7.0) 04/22/19 08:16 Ur Specific [place] 1.009 (1.003-1.030) 04/22/19 08:16 >500 mg/dL (Negative) 04/22/19 08:16 Neg mg/dL (Negative) 04/22/19 08:16 Neg mg/dL (Negative) 04/22/19 08:16 Neg (Negative) 04/22/19 08:16 Neg (Negative) 04/22/19 08:16 Neg (Negative) 04/22/19 08:16 4.0 mg/dL (<2.0) 04/22/19 08:16 Ur Leukocyte Esterase Tr (Negative) 06/18/19 08:16 1.0 /HPF (0.0-6.0) 04/22/19 08:16 1.0 /HPF (0.0-6.0) 04/22/19 08:16 U Epithel Cells (Auto) 2.0 /HPF (0-13.0) 04/22/19 08:16 1+ /HPF (Negative) 04/22/19 08:16 Urine HCG, Qual Negative (Negative) 04/22/19 08:16 Active Medications - Current Medications Current Medications: Generic Name Dose Route Start Last Admin Trade Name Freq PRN Reason Stop Dose Admin Acetaminophen 650 mg 04/22/19 16:41 Tylenol PO Q4H PRN Pain MILD(1-3)/Fever >100.5/VILLA Amlodipine Besylate 10 mg 04/22/19 20:00 04/23/19 11:25 Norvasc PO 10 mg QDAY CARIE Administration Clonidine HCl 0.2 mg 04/22/19 22:00 04/23/19 21:57 Catapres PO 0.2 mg BID CARIE Administration Diphenhydramine HCl 25 mg 04/22/19 16:52 04/24/19 04:02 Benadryl IV 25 mg Q6H PRN Administration Itching Famotidine 20 mg 04/24/19 10:00 Pepcid PO QDAY CARIE Folic Acid 1 mg 04/22/19 17:00 04/23/19 11:25 Folvite PO 1 mg DAILY CARIE Administration Hydralazine HCl 10 mg 04/23/19 14:23 Apresoline IV Q4HR PRN Blood Pressure Hydromorphone HCl 2 mg 04/22/19 16:41 04/24/19 07:25 Dilaudid IV 2 mg Q3H PRN Administration Pain , Severe (7-10) Hydroxyurea 500 mg 04/22/19 20:00 04/23/19 10:00 Hydrea PO 500 mg DAILY CARIE Administration Dextrose/Sodium Chloride 1,000 mls @ 100 mls/hr 04/23/19 09:00 04/24/19 07:33 D5ns 0.2% IV 100 mls/hr DIRECT CARIE Administration Levofloxacin 750 mg 04/24/19 10:00 Levaquin PO Q24HR CARIE Lisinopril 40 mg 04/22/19 20:00 04/23/19 11:25 Zestril PO 40 mg QDAY CARIE Administration Methadone HCl 10 mg 04/22/19 22:00 04/23/19 21:57 Dolophine PO 10 mg BID CARIE Administration Ondansetron HCl 4 mg 04/22/19 16:41 Zofran IV Q8H PRN Nausea And Vomiting Oxycodone/Acetaminophen 2 tab 04/22/19 17:35 Percocet 5/325 PO Q4H PRN Pain, Moderate (4-6) Promethazine HCl 25 mg 04/22/19 16:41 Phenergan AL Q6H PRN N/V IF NPO AND NO IV ACCESS Sodium Chloride 10 ml 04/22/19 22:00 04/23/19 22:02 Sodium Chloride Flush Syringe 10 Ml IV 10 ml BID CARIE Administration Sodium Chloride 10 ml 04/22/19 16:41 04/24/19 07:26 Sodium Chloride Flush Syringe 10 Ml IV 10 ml PRN PRN Administration LINE FLUSH
[2019-04-24] MEDS ORDERED: LEVAQUIN PO SCH (10:00)
[2019-04-24] MEDS: SODIUM CHLORIDE FLUSH SYRINGE 10 ML IV SCH ×2 (10:33→23:17)
[2019-04-24] MEDS: FOLVITE PO SCH (10:34)
[2019-04-24] MEDS: ZESTRIL PO SCH (10:34)
[2019-04-24] MEDS: LEVAQUIN PO SCH (10:34)
[2019-04-24] MEDS: CATAPRES PO SCH ×2 (10:34→23:18)
[2019-04-24] MEDS: PEPCID PO SCH (10:34)
[2019-04-24] MEDS: HYDREA PO SCH (10:35)
[2019-04-24] MEDS: NORVASC PO SCH (10:35)
[2019-04-24] MEDS: DOLOPHINE PO SCH ×2 (11:28→23:17)
--- NOTE | 2019-04-24 20:17 | Consultation ---
REFERRING PHYSICIAN: Dr. St. REASON FOR CONSULTATION: Sickle cell disease. HISTORY OF PRESENT ILLNESS: I saw the patient, a 33-year-old female, with a history of sickle cell disease for which she follows with Dr. Torres. She came to the hospital with generalized pain and lower back pain and leg pain. The patient says she normally does not get hospitalized. Last admission was about a year ago. The patient is on methadone and Percocet at home and is also taking Hydrea 1 tablet a day. At this time, the patient is on Percocet, methadone, as well as Dilaudid. REVIEW OF SYSTEMS: Generalized body pain present, back pain present, extremities pain present. No vomiting, no diarrhea, no shortness of breath at rest. No abdominal pain. No seizure or syncope. No loss of consciousness. No bleeding. PAST MEDICAL HISTORY: Includes as above, hypertension. SURGICAL HISTORY: Gallbladder surgery, surgery. Port was placed and removed. PICC line was placed and removed. Now, she has a left chest port. SOCIAL HISTORY: No history of tobacco usage. FAMILY HISTORY: Hypertension. HOME MEDICATIONS: Lisinopril, amlodipine, methadone, hydroxyurea, Percocet. ALLERGIES: MORPHINE. MEDICATIONS: Include Tylenol, amlodipine, hydralazine, hydroxyurea, methadone. PHYSICAL EXAMINATION: VITAL SIGNS: Temperature 98, pulse 76, respirations 18, BP 148/76. HEENT: Pallor present. No icterus. NECK: No neck lymph nodes. HEART: S1, S2. LUNGS: Clear to auscultation. ABDOMEN: Soft. EXTREMITIES: No calf tenderness. NEUROLOGIC: Alert, awake, oriented. LABORATORY DATA: White cell 13, hemoglobin 8.3, MCV 91, platelets 530, neutrophils 59%, potassium 4.2, creatinine 0.8, calcium is 8.4, AST 29, bilirubin 1.1. RADIOLOGY: Chest x-ray was done. ASSESSMENT AND PLAN: 1. Normocytic anemia, history of sickle cell disease. The patient came with pain issues. The patient is on pain medications. Dilaudid has been added. If there is no improvement, we will look into a [employer] SUPPORT WORKER. 2. Normocytic anemia. The patient is on hydroxyurea. She follows with Dr. Torres. 3. History of leukocytosis. 4. History of hyperbilirubinemia. 5. I will follow the patient during inpatient stay. We have patient's report for easy access. JOB# [id number] NABOR/CHAVEZ
[2019-04-25] MEDS: D5NS 0.2% 1,000 ML IV SCH ×3 (01:01→12:02)
[2019-04-25] MEDS: DILAUDID IV PRN ×5 (02:12→15:04)
[2019-04-25] MEDS: BENADRYL IV PRN ×2 (05:16→11:56)
[2019-04-25 11:46] VITALS: BP 125/66
[2019-04-25] MEDS: CATAPRES PO SCH (11:48)
[2019-04-25] MEDS: ZESTRIL PO SCH (11:48)
[2019-04-25] MEDS: LEVAQUIN PO SCH (11:49)
[2019-04-25] MEDS: DOLOPHINE PO SCH ×2 (11:49→13:24)
[2019-04-25] MEDS: FOLVITE PO SCH (11:49)
[2019-04-25] MEDS: NORVASC PO SCH (11:49)
[2019-04-25] MEDS: PEPCID PO SCH (11:49)
[2019-04-25] MEDS: HYDREA PO SCH (11:50)
[2019-04-25] MEDS: SODIUM CHLORIDE FLUSH SYRINGE 10 ML IV SCH (11:50)
--- NOTE | 2019-04-25 14:27 | Discharge Summary ---
Providers - Providers Date of Admission: 04/22/19 14:08 Date of discharge: 04/25/19 Attending physician: MAGY ZIMMERMAN 04/22/19 16:41 Consult to Physician [CONS] Routine Comment: Consulting Provider: LYNDA JARAMILLO Physician Instructions: Reason For Exam: sickle cell crisis Primary care physician: SHAYE ESPINOZA Hospitalization Condition: Stable Hospital course: Patient is a 33 yo man with a history of hypertension, remote past of double pneumonia s/p Intubation for one and half months at [facility] and sickle cell disorder who presents with back pains and bilateral leg pains typical of prior sickle cell pain crisis. Discharge Diagnoses: -Sickle cell vaso-occlusive crisis -Accelerated Hypertension with urgency: -Cough: CXR negative, on levaquin for acute bronchitis -SIRS, poa without infectious source so far: supportive care, empiric Levaquin given -Malnutrition, mild: dietary education done -Hemolytic anemia: Heme/onc consulted, d/w Dr. Jaramillo -Chronic pain syndrome: Methadone and Percocet [address] 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 Disposition: DC-01 TO HOME OR SELFCARE Time spent for discharge: 32 minutes Core Measure Documentation - Palliative Care Palliative Care/ Comfort Measures: Not Applicable - Core Measures Any of the following diagnoses?: none - VTE Discharge Requirements Deep Vein Thrombosis/Pulmonary Embolism Present on Admission: No Has pt received <5 days of overlap therapy or INR<2.0: No Anticoagulant overlap therapy prescribed at discharge: No Contraindication No Overlap Therapy order at DC: Not Indicated Exam - Physical Exam Narrative exam: Gen: WDWN, NAD, Awake, Alert, Orientated HEENT: NCAT, EOMI, PERRL, OP Clear Neck: supple, no adenopathy, no thyromegaly, no JVD CVS/Heart: RRR, normal S1S2, pulses present bilaterally Chest/Lungs: CTA B, Symmetrical chest expansion, good air entry bilaterally GI/Abdomen: soft, NTND, good bowel sounds, no guarding or rebound /Bladder: no suprapubic tenderness, no CVA or paraspinal tenderness Extermity/Skin: no c/c/e, no obvious rash MSK: FROM x 4 Neuro: CN 2-12 grossly intact, no new focal deficits Psych: calm - Constitutional Vitals: Temp Pulse Resp BP Pulse Ox 98.6 F 75 18 125/66 97 04/25/19 11:45 04/25/19 11:48 04/25/19 11:45 04/25/19 11:48 04/25/19 11:46 Plan Activity: other (no strenous activity unless cleared by Dr. Torres) Diet: regular Follow up with: SHAYE ESPINOZA MD [Primary Care Provider] - 7 Days
--- NOTE | 2019-04-25 15:18 | Hem/Onc Progress Note ---
Assessment and Plan 1. Normocytic anemia, history of sickle cell disease. The patient came with pain issues. The patient is on pain medications. Dilaudid has been added. If there is no improvement, we will look into a DIRECTOR APPAREL. 2. Normocytic anemia. The patient is on hydroxyurea. She follows with Dr. Torres. 3. History of leukocytosis. 4. History of hyperbilirubinemia. 5. I will follow the patient during inpatient stay. pt with sickle cell will have some hemolysis hydration OP follow up with dr Torres pain better - Patient Problems (1) Anemia, sickle cell with crisis Onset Date: 07/01/16 Status: Acute Subjective Date of service: 04/25/19 Principal diagnosis: sickle cell anemia Interval history: pain better Objective - Exam Narrative Exam: Pain mild General appearance no acute distress Performance status selfcare ambulatory Eyes EOM intact ENT hearing intact/ Clear oral mucosa LNs cervical not palpable Neck normal ROM Respiratory Normal Breath sounds - CTA CVS S1 S2 + Extremities normal temperature/ no edema General GI Soft non tender Rectal deferred Female - deferred Skin warm Musculoskeletal strength equal bilaterally Neurologically no Focal deficit/ moves all extremities - Constitutional Vitals: Last Vital Signs Temp 98.6 F 04/25/19 11:45 Pulse 75 04/25/19 11:48 Resp 18 04/25/19 11:45 BP 125/66 04/25/19 11:48 Pulse Ox 97 04/25/19 11:46 Medications & Allergies - Medications Allergies/Adverse Reactions: Allergies morphine Allergy (Verified 03/19/19 08:27) Shortness of Breath Home Medications: Home Medications Medication Instructions Recorded Confirmed Last Taken Type Folic Acid [Folvite] 1 mg PO DAILY #30 tablet 07/29/16 04/22/19 Unknown Rx Lisinopril [Zestril TAB] 40 mg PO QDAY #30 tablet 12/02/16 04/22/19 04/22/19 Rx amLODIPine [Norvasc] 10 mg PO QDAY #30 tablet 12/02/16 04/22/19 04/22/19 Rx Hydroxyurea [Hydrea] 500 mg PO DAILY 03/19/19 04/22/19 04/22/19 History Methadone [Dolophine] 10 mg PO BID 03/19/19 04/22/19 04/22/19 History cloNIDine [Catapres] 0.2 mg PO BID 03/19/19 04/22/19 Unknown History Oxycodone HCl/Acetaminophen 1 each PO Q4-6H PRN 04/22/19 04/22/19 04/22/19 History [Percocet 10/325 mg] Active Medications: Generic Name Dose Route Start Last Admin Trade Name Freq PRN Reason Stop Dose Admin Acetaminophen 650 mg 04/22/19 16:41 Tylenol PO Q4H PRN Pain MILD(1-3)/Fever >100.5/VILLA Amlodipine Besylate 10 mg 04/22/19 20:00 04/25/19 11:49 Norvasc PO 10 mg QDAY CARIE Administration Clonidine HCl 0.2 mg 04/22/19 22:00 04/25/19 11:48 Catapres PO 0.2 mg BID CARIE Administration Diphenhydramine HCl 25 mg 04/22/19 16:52 04/25/19 11:56 Benadryl IV 25 mg Q6H PRN Administration Itching Famotidine 20 mg 04/24/19 10:00 04/25/19 11:49 Pepcid PO 20 mg QDAY CARIE Administration Folic Acid 1 mg 04/22/19 17:00 04/25/19 11:49 Folvite PO 1 mg DAILY CARIE Administration Hydralazine HCl 10 mg 04/23/19 14:23 Apresoline IV Q4HR PRN Blood Pressure Hydromorphone HCl 2 mg 04/22/19 16:41 04/25/19 15:04 Dilaudid IV 2 mg Q3H PRN Administration Pain , Severe (7-10) Hydroxyurea 500 mg 04/22/19 20:00 04/25/19 11:50 Hydrea PO 500 mg DAILY CARIE Administration Dextrose/Sodium Chloride 1,000 mls @ 100 mls/hr 04/23/19 09:00 04/25/19 12:02 D5ns 0.2% IV 100 mls/hr DIRECT CARIE Administration Levofloxacin 750 mg 04/24/19 10:00 04/25/19 11:49 Levaquin PO 750 mg Q24HR CARIE Administration Lisinopril 40 mg 04/22/19 20:00 04/25/19 11:48 Zestril PO 40 mg QDAY CARIE Administration Methadone HCl 10 mg 04/22/19 22:00 04/25/19 13:24 Dolophine PO 10 mg BID CARIE Administration Ondansetron HCl 4 mg 04/22/19 16:41 Zofran IV Q8H PRN Nausea And Vomiting Oxycodone/Acetaminophen 2 tab 04/22/19 17:35 Percocet 5/325 PO Q4H PRN Pain, Moderate (4-6) Promethazine HCl 25 mg 04/22/19 16:41 Phenergan [place] Q6H PRN N/V IF NPO AND NO IV ACCESS Sodium Chloride 10 ml 04/22/19 22:00 04/25/19 11:50 Sodium Chloride Flush Syringe 10 Ml IV 10 ml BID CARIE Administration Sodium Chloride 10 ml 04/22/19 16:41 04/24/19 07:26 Sodium Chloride Flush Syringe 10 Ml IV 10 ml PRN PRN Administration LINE FLUSH
[2019-04-25] MEDS ORDERED: TRIPLE ANTIBIOTIC TP ONE (16:25)
[2019-04-25] MEDS ORDERED: FLUSH HEPARIN IV ONE (16:26)
== END 2019-04-25 17:00 | disposition home or self-care (01) | DRG 812 ==
LOC: ED 06:03 → 3A 14:08
PROVIDERS: ADMIT Internal Medicine; ATTEND Internal Medicine
DX: D57.00 Hb-SS disease with crisis, unspecified (principal); D64.9 Anemia, unspecified; I10 Essential (primary) hypertension; E44.1 Mild protein-calorie malnutrition; I16.0 Hypertensive urgency; R65.10 Systemic inflammatory response syndrome (SIRS) of non-infectious origin without acute organ dysfunction; J20.9 Acute bronchitis, unspecified; G89.4 Chronic pain syndrome; M19.90 Unspecified osteoarthritis, unspecified site; D72.829 Elevated white blood cell count, unspecified; E80.6 Other disorders of bilirubin metabolism; Z68.42 Body mass index [BMI] 45.0-49.9, adult; Z87.01 Personal history of pneumonia (recurrent); Z90.49 Acquired absence of other specified parts of digestive tract; Z82.49 Family history of ischemic heart disease and other diseases of the circulatory system
CPT/HCPCS: 36415; 71046; 80053; 81001; 81025; 83036; 85025; 85045; 87116; 94760; G0378; A6250; J1170; J1200; J1642; J1885; J1956; J2405; J7042

== ENCOUNTER 2019-05-03 07:31 | Emergency (ER) | payer MEDICAID ==
[2019-05-03] MEDS ORDERED: ZOFRAN IV ONE (07:41)
[2019-05-03] MEDS ORDERED: DILAUDID IV ONE ×4 (07:41→10:30)
[2019-05-03] MEDS ORDERED: TORADOL IV ONE (07:41)
[2019-05-03] MEDS ORDERED: BENADRYL IV ONE ×2 (07:41→10:30)
[2019-05-03] MEDS ORDERED: D5NS 0.2% 1,000 ML IV SCH (08:00)
--- NOTE | 2019-05-03 08:30 | Emergency Department Report ---
ED General Adult HPI - General Chief complaint: Sickle Cell Crisis Stated complaint: SICKLE CELL Time Seen by Provider: 05/03/19 07:41 Source: patient, old records reviewed Mode of arrival: Ambulatory Limitations: No Limitations - History of Present Illness Initial comments: 33-year-old female with a past medical history arthritis, asthma, hypertension, and sickle cell anemia presents to the hospital complaining of lower back pain and bilateral leg pain secondary to sickle cell crisis that started yesterday. Pain is constant, rated 10/10 in intensity despite taking Percocet 10 mg and daily methadone. Patient denies leg weakness, numbness, dysuria, or fever. She was just admitted to the hospital April 22 to the for similar symptoms. She reports improvement until symptoms restarted yesterday. Front Sight Attacher: Dr. Torres - Related Data Home Medications Medication Instructions Recorded Confirmed Last Taken Hydroxyurea [Hydrea] 500 mg PO DAILY 03/19/19 04/22/19 04/22/19 Methadone [Dolophine] 10 mg PO BID 03/19/19 04/22/19 04/22/19 cloNIDine [Catapres] 0.2 mg PO BID 03/19/19 04/22/19 Unknown Oxycodone HCl/Acetaminophen 1 each PO Q4-6H PRN 04/22/19 04/22/19 04/22/19 [Percocet 10/325 mg] Previous Rx's Medication Instructions Recorded Last Taken Type Folic Acid [Folvite] 1 mg PO DAILY #30 tablet 07/29/16 Unknown Rx Lisinopril [Zestril TAB] 40 mg PO QDAY #30 tablet 12/02/16 04/22/19 Rx amLODIPine [Norvasc] 10 mg PO QDAY #30 tablet 12/02/16 04/22/19 Rx Allergies Allergy/AdvReac Type Severity Reaction Status Date / Time morphine Allergy Shortness Verified 05/03/19 07:32 of Breath ED Review of Systems ROS: Stated complaint: SICKLE CELL Other details as noted in HPI Comment: All other systems reviewed and negative ED Past Medical Hx - Past Medical History Hx Hypertension: Yes Hx Heart Attack/AMI: No Hx Congestive Heart Failure: No Hx Diabetes: No Hx Sickle Cell Disease: Yes Hx Arthritis: Yes Hx Asthma: Yes Hx COPD: No Hx HIV: No Additional medical history: ANEMIA, multiple port infections - Surgical History Hx Cholecystectomy: Yes Additional Surgical History: , port removed June 2014. PICC line left upper arm (11/19/2014). . - Social History Smoking Status: Never Smoker Substance Use Type: None - Medications Home Medications: Home Medications Medication Instructions Recorded Confirmed Last Taken Type Folic Acid [Folvite] 1 mg PO DAILY #30 tablet 07/29/16 04/22/19 Unknown Rx Lisinopril [Zestril TAB] 40 mg PO QDAY #30 tablet 12/02/16 04/22/19 04/22/19 Rx amLODIPine [Norvasc] 10 mg PO QDAY #30 tablet 12/02/16 04/22/19 04/22/19 Rx Hydroxyurea [Hydrea] 500 mg PO DAILY 03/19/19 04/22/19 04/22/19 History Methadone [Dolophine] 10 mg PO BID 03/19/19 04/22/19 04/22/19 History cloNIDine [Catapres] 0.2 mg PO BID 03/19/19 04/22/19 Unknown History Oxycodone HCl/Acetaminophen 1 each PO Q4-6H PRN 04/22/19 04/22/19 04/22/19 History [Percocet 10/325 mg] ED Physical Exam - General Limitations: No Limitations - Other Other exam information: General: No limitations, patient is alert in no acute distress Head exam: Atraumatic, normocephalic Eyes exam: Normal appearance ENT: Moist mucous membrane, normal oropharynx Neck exam: Normal inspection, full range of motion, no meningismus nontender Respiratory exam: Clear to auscultation bilateral, no wheezes, rales, crackles. Left chest wall port Cardiovascular: Normal rate and rhythm Abdomen: Soft, nondistended, and nontender, with normal bowel sounds, no rebound, or guarding Extremity: Full range of motion normal inspection no deformity, generalized leg tenderness Back: Normal Inspection, full range of motion, generalized lower back tenderness Neurologic: Alert, oriented x3, cranial nerves intact, no motor or sensory deficit Psychiatric: normal affect, normal mood Skin: Warm, dry, intact ED Course Vital Signs 05/03/19 05/03/19 07:35 10:57 Temperature 98.4 F Pulse Rate 81 85 Respiratory 20 18 Rate Blood Pressure 151/85 Blood Pressure 167/90 [Left] O2 Sat by Pulse 99 99 Oximetry - Reevaluation(s) Reevaluation #1: 05/03/19 11:21 pt feels better after 3 doses of dilaudid ED Medical Decision Making - Lab Data Result diagrams: 05/03/19 08:30 05/03/19 10:21 Lab Results 05/03/19 05/03/19 05/03/19 Range/Units 08:30 08:30 09:02 WBC 17.4 H (4.5-11.0) K/mm3 RBC 2.69 L (3.65-5.03) M/mm3 Hgb 8.2 L (10.1-14.3) gm/dl Hct 24.4 L (30.3-42.9) % MCV 91 (79-97) fl MCH 31 (28-32) pg MCHC 34 (30-34) % RDW 19.3 H (13.2-15.2) % Plt Count 455 H (140-440) K/mm3 Lymph % (Auto) 20.7 (13.4-35.0) % [place] % (Auto) 7.1 (0.0-7.3) % Eos % (Auto) 2.1 (0.0-4.3) % Baso % (Auto) 0.8 (0.0-1.8) % Lymph # 3.6 (1.2-5.4) K/mm3 [place] # 1.2 H (0.0-0.8) K/mm3 Eos # 0.4 (0.0-0.4) K/mm3 Baso # 0.1 (0.0-0.1) K/mm3 Seg Neutrophils % 69.3 (40.0-70.0) % Seg Neutrophils # 12.0 H (1.8-7.7) K/mm3 Percent Retic 7.81 H (0.78-2.58) % Sodium Not Reportable Potassium Not Reportable Chloride Not Reportable Carbon Dioxide Not Reportable Anion Gap Not Reportable BUN Not Reportable Creatinine Not Reportable Estimated GFR Not Reportable BUN/Creatinine Ratio Not Reportable Glucose Not Reportable Calcium Not Reportable Total Bilirubin Not Reportable AST TNR ALT TNR Alkaline Phosphatase Not Reportable Total Protein Not Reportable Albumin Not Reportable Albumin/Globulin Ratio Not Reportable HCG, Qual Negative (Negative) Urine Color (Yellow) Urine Turbidity (Clear) Urine pH (5.0-7.0) Ur Specific [place] (1.003-1.030) Urine Protein (Negative) mg/dL Urine Glucose (UA) (Negative) mg/dL Urine Ketones (Negative) mg/dL Urine Blood (Negative) Urine Nitrite (Negative) Urine Bilirubin (Negative) Urine Urobilinogen (<2.0) mg/dL Ur Leukocyte Esterase (Negative) Urine WBC (Auto) (0.0-6.0) /HPF Urine RBC (Auto) (0.0-6.0) /HPF Urine Mucus /HPF 05/03/19 05/03/19 Range/Units 10:21 11:34 WBC (4.5-11.0) K/mm3 RBC (3.65-5.03) M/mm3 Hgb (10.1-14.3) gm/dl Hct (30.3-42.9) % MCV (79-97) fl MCH (28-32) pg MCHC (30-34) % RDW (13.2-15.2) % Plt Count (140-440) K/mm3 Lymph % (Auto) (13.4-35.0) % [place] % (Auto) (0.0-7.3) % Eos % (Auto) (0.0-4.3) % Baso % (Auto) (0.0-1.8) % Lymph # (1.2-5.4) K/mm3 [place] # (0.0-0.8) K/mm3 Eos # (0.0-0.4) K/mm3 Baso # (0.0-0.1) K/mm3 Seg Neutrophils % (40.0-70.0) % Seg Neutrophils # (1.8-7.7) K/mm3 Percent Retic (0.78-2.58) % Sodium 138 Potassium 4.1 Chloride 101.9 Carbon Dioxide 25 Anion Gap 15 BUN 9 Creatinine 0.9 Estimated GFR > 60 BUN/Creatinine Ratio 10 Glucose 118 H Calcium 8.6 Total Bilirubin 1.40 H AST 26 ALT 21 Alkaline Phosphatase 131 H Total Protein 6.9 Albumin 3.5 L Albumin/Globulin Ratio 1.0 HCG, Qual (Negative) Urine Color Yellow (Yellow) Urine Turbidity Clear (Clear) Urine pH 6.0 (5.0-7.0) Ur Specific [place] 1.009 (1.003-1.030) Urine Protein >500 (Negative) mg/dL Urine Glucose (UA) Neg (Negative) mg/dL Urine Ketones Neg (Negative) mg/dL Urine Blood Neg (Negative) Urine Nitrite Neg (Negative) Urine Bilirubin Neg (Negative) Urine Urobilinogen < 2.0 (<2.0) mg/dL Ur Leukocyte Esterase Neg (Negative) Urine WBC (Auto) < 1.0 (0.0-6.0) /HPF Urine RBC (Auto) 3.0 (0.0-6.0) /HPF Urine Mucus Few /HPF - Medical Decision Making Patient received Toradol, Zofran, Benadryl, and 3 separate doses of Dilaudid 2mg with improvement in pain Leukocytosis likely secondary to sickle cell crisis and patient does not endorse any signs of infection and has a normal UA She will be discharged home to continue her current medicines - Differential Diagnosis sickle cell crisis, anemia, infection Critical Care Time: No Critical care attestation.: If time is entered above; I have spent that time in minutes in the direct care of this critically ill patient, excluding procedure time. ED Disposition Clinical Impression: Anemia, sickle cell with crisis Disposition: DC-01 TO HOME OR SELFCARE Is pt being admited?: No Condition: Stable Instructions: Sickle Cell Crisis (ED) Additional Instructions: Continue your medication as prescribed. Follow up with your doctor or the clinic/doctor provided. Return if symptoms worsen as indicated by your discharge instructions Referrals: md ashtyn [Other] - 2-3 Days Time of Disposition: 12:26
[2019-05-03 09:01] LABS: Basophils # (Auto) 0.1 K/mm3 (0.0-0.1); Basophils % (Auto) 0.8 % (0.0-1.8); Eosinophils # (Auto) 0.4 K/mm3 (0.0-0.4); Eosinophils % (Auto) 2.1 % (0.0-4.3); Hematocrit 24.4 % (30.3-42.9); Hemoglobin 8.2 gm/dl (10.1-14.3); Lymphocytes # (Auto) 3.6 K/mm3 (1.2-5.4); Lymphocytes % (Auto) 20.7 % (13.4-35.0); Mean Corpuscular HGB Conc 34 % (30-34); Mean Corpuscular Volume 91 fl (79-97); Monocytes # (Auto) 1.2 K/mm3 (0.0-0.8); Monocytes % (Auto) 7.1 % (0.0-7.3); Platelet Count 455 K/mm3 (140-440); Red Blood Count 2.69 M/mm3 (3.65-5.03); Red Cell Distribution Width 19.3 % (13.2-15.2)
[2019-05-03 09:30] LABS: Alanine Aminotransferase TNR units/L (7-56)
[2019-05-03 10:37] LABS: Alanine Aminotransferase 21 units/L (7-56); Albumin 3.5 g/dL (3.9-5); BUN/Creatinine Ratio 10; Blood Urea Nitrogen 9 mg/dL (7-17); Calcium 8.6 mg/dL (8.4-10.2); Hemolysis Index 10
[2019-05-03 11:53] LABS: Bilirubin,Urine NEG (Negative); Blood,Urine NEG (Negative); Color,Urine Yellow (Yellow); Mucus,Urine FEW /HPF; Protein,Urine >500 mg/dL (Negative); Urobilinogen,Urine < 2.0 mg/dL (<2.0); WBC,Urine < 1.0 /HPF (0.0-6.0)
[2019-05-03] MEDS ORDERED: FLUSH HEPARIN IV ONE (12:22)
[2019-05-03 12:32] VITALS: BP 170/88
== END 2019-05-03 12:32 | disposition home or self-care (01) ==
LOC: ED 07:31
DX: D57.00 Hb-SS disease with crisis, unspecified (principal); D64.9 Anemia, unspecified; I10 Essential (primary) hypertension; J45.909 Unspecified asthma, uncomplicated; M19.90 Unspecified osteoarthritis, unspecified site; Z90.49 Acquired absence of other specified parts of digestive tract; Z98.890 Other specified postprocedural states; Z88.5 Allergy status to narcotic agent; Z79.899 Other long term (current) drug therapy
CPT/HCPCS: 36415; 80053; 81001; 84703; 85025; 85045; 96374; 96375; 96376; 99283; J1170; J1200; J1642; J1885; J2405

== ENCOUNTER 2019-05-11 06:48 | Emergency (ER) | payer MEDICAID ==
[2019-05-11] MEDS ORDERED: ZOFRAN IV ONE (10:43)
[2019-05-11] MEDS ORDERED: BENADRYL IV ONE ×2 (10:43→13:43)
[2019-05-11] MEDS ORDERED: DILAUDID IV ONE ×3 (10:43→13:43)
[2019-05-11] MEDS ORDERED: NACL 0.9% 1000 ML 1,000 ML IV ONE (10:43)
[2019-05-11 10:57] LABS: Basophils # (Auto) 0.2 K/mm3 (0.0-0.1); Basophils % (Auto) 0.9 % (0.0-1.8); Eosinophils # (Auto) 1.4 K/mm3 (0.0-0.4); Eosinophils % (Auto) 8.2 % (0.0-4.3); Hematocrit 27.6 % (30.3-42.9); Hemoglobin 9.3 gm/dl (10.1-14.3); Lymphocytes # (Auto) 3.1 K/mm3 (1.2-5.4); Lymphocytes % (Auto) 17.9 % (13.4-35.0); Mean Corpuscular HGB Conc 34 % (30-34); Mean Corpuscular Volume 90 fl (79-97); Monocytes # (Auto) 1.1 K/mm3 (0.0-0.8); Monocytes % (Auto) 6.6 % (0.0-7.3); Platelet Count 416 K/mm3 (140-440); Red Blood Count 3.06 M/mm3 (3.65-5.03)
[2019-05-11 11:00] LABS: Red Cell Distribution Width 20.2 % (13.2-15.2)
--- NOTE | 2019-05-11 11:06 | Emergency Department Report ---
ED General Adult HPI - General Chief complaint: Sickle Cell Crisis Stated complaint: SICKLE CELL PAIN Time Seen by Provider: 05/11/19 10:19 Source: patient Mode of arrival: Ambulatory Limitations: No Limitations - History of Present Illness Initial comments: Patient is a 33-year-old female who presents with sickle cell crisis is going on for the last couple hours. Patient states that she is having pain in her legs and her back which is typical for her sickle cell pain. Patient denies having any chest pain or any shortness of breath. Patient also states that she has some mild nausea the pain is a 10 out of 10 as a severe stabbing like pain and it radiates throughout her body. Patient denies having any fevers or chills. - Related Data Home Medications Medication Instructions Recorded Confirmed Last Taken Hydroxyurea [Hydrea] 500 mg PO DAILY 03/19/19 04/22/19 04/22/19 Methadone [Dolophine] 10 mg PO BID 03/19/19 04/22/19 04/22/19 cloNIDine [Catapres] 0.2 mg PO BID 03/19/19 04/22/19 Unknown Oxycodone HCl/Acetaminophen 1 each PO Q4-6H PRN 04/22/19 04/22/19 04/22/19 [Percocet 10/325 mg] Previous Rx's Medication Instructions Recorded Last Taken Type Folic Acid [Folvite] 1 mg PO DAILY #30 tablet 07/29/16 Unknown Rx Lisinopril [Zestril TAB] 40 mg PO QDAY #30 tablet 12/02/16 04/22/19 Rx amLODIPine [Norvasc] 10 mg PO QDAY #30 tablet 12/02/16 04/22/19 Rx Allergies Allergy/AdvReac Type Severity Reaction Status Date / Time morphine Allergy Shortness Verified 05/03/19 07:32 of Breath ED Review of Systems ROS: Stated complaint: SICKLE CELL PAIN Other details as noted in HPI Constitutional: denies: chills, fever Eyes: denies: eye pain, eye discharge, vision change ENT: denies: ear pain, throat pain Respiratory: denies: cough, shortness of breath, wheezing Cardiovascular: denies: chest pain, palpitations Endocrine: no symptoms reported Gastrointestinal: denies: abdominal pain, nausea, diarrhea Genitourinary: denies: urgency, dysuria, discharge Musculoskeletal: arthralgia, myalgia. denies: back pain, joint swelling Skin: denies: rash, lesions Neurological: denies: headache, weakness, paresthesias Psychiatric: denies: anxiety, depression Hematological/Lymphatic: denies: easy bleeding, easy bruising ED Past Medical Hx - Past Medical History Hx Hypertension: Yes Hx Heart Attack/AMI: No Hx Congestive Heart Failure: No Hx Diabetes: No Hx Sickle Cell Disease: Yes Hx Arthritis: Yes Hx Asthma: Yes Hx COPD: No Hx HIV: No Additional medical history: ANEMIA, multiple port infections - Surgical History Hx Cholecystectomy: Yes Additional Surgical History: , port removed June 2014. PICC line left upper arm (11/19/2014). . - Social History Smoking Status: Never Smoker - Medications Home Medications: Home Medications Medication Instructions Recorded Confirmed Last Taken Type Folic Acid [Folvite] 1 mg PO DAILY #30 tablet 07/29/16 04/22/19 Unknown Rx Lisinopril [Zestril TAB] 40 mg PO QDAY #30 tablet 12/02/16 04/22/19 04/22/19 Rx amLODIPine [Norvasc] 10 mg PO QDAY #30 tablet 12/02/16 04/22/19 04/22/19 Rx Hydroxyurea [Hydrea] 500 mg PO DAILY 03/19/19 04/22/19 04/22/19 History Methadone [Dolophine] 10 mg PO BID 03/19/19 04/22/19 04/22/19 History cloNIDine [Catapres] 0.2 mg PO BID 03/19/19 04/22/19 Unknown History Oxycodone HCl/Acetaminophen 1 each PO Q4-6H PRN 04/22/19 04/22/19 04/22/19 History [Percocet 10/325 mg] ED Physical Exam - General Limitations: No Limitations General appearance: alert, in no apparent distress - Head Head exam: Present: atraumatic, normocephalic - Eye Eye exam: Present: normal appearance - ENT ENT exam: Present: mucous membranes moist - Neck Neck exam: Present: normal inspection - Respiratory Respiratory exam: Present: normal lung sounds bilaterally. Absent: respiratory distress - Cardiovascular Cardiovascular Exam: Present: regular rate, normal rhythm. Absent: systolic murmur, diastolic murmur, rubs, gallop - GI/Abdominal GI/Abdominal exam: Present: soft, normal bowel sounds - Extremities Exam Extremities exam: Present: normal inspection - Back Exam Back exam: Present: normal inspection - Neurological Exam Neurological exam: Present: alert, oriented X3 - Psychiatric Psychiatric exam: Present: normal affect, normal mood - Skin Skin exam: Present: warm, dry, intact, normal color. Absent: rash ED Course Vital Signs 05/11/19 05/11/19 06:57 13:16 Temperature 98.8 F 98.9 F Pulse Rate 88 88 Respiratory 18 18 Rate Blood Pressure 214/98 Blood Pressure 163/82 [Right] O2 Sat by Pulse 97 95 Oximetry ED Medical Decision Making - Lab Data Result diagrams: 05/11/19 10:42 05/11/19 10:42 Lab Results 05/11/19 05/11/19 Range/Units 10:42 10:42 WBC 17.4 H (4.5-11.0) K/mm3 RBC 3.06 L (3.65-5.03) M/mm3 Hgb 9.3 L (10.1-14.3) gm/dl Hct 27.6 L (30.3-42.9) % MCV 90 (79-97) fl MCH 31 (28-32) pg MCHC 34 (30-34) % RDW 20.2 H (13.2-15.2) % Plt Count 416 (140-440) K/mm3 Lymph % (Auto) 17.9 (13.4-35.0) % [place] % (Auto) 6.6 (0.0-7.3) % Eos % (Auto) 8.2 H (0.0-4.3) % Baso % (Auto) 0.9 (0.0-1.8) % Lymph # 3.1 (1.2-5.4) K/mm3 [place] # 1.1 H (0.0-0.8) K/mm3 Eos # 1.4 H (0.0-0.4) K/mm3 Baso # 0.2 H (0.0-0.1) K/mm3 Seg Neutrophils % 66.4 (40.0-70.0) % Seg Neutrophils # 11.6 H (1.8-7.7) K/mm3 Percent Retic 12.25 H (0.78-2.58) % Sodium 138 (137-145) mmol/L Potassium 4.2 (3.6-5.0) mmol/L Chloride 101.1 (98-107) mmol/L Carbon Dioxide 25 (22-30) mmol/L Anion Gap 16 mmol/L BUN 7 (7-17) mg/dL Creatinine 0.7 (0.7-1.2) mg/dL Estimated GFR > 60 ml/min BUN/Creatinine Ratio 10 % Glucose 112 H (65-100) mg/dL Calcium 9.4 (8.4-10.2) mg/dL Total Bilirubin 1.90 H (0.1-1.2) mg/dL AST 36 (5-40) units/L ALT 33 (7-56) units/L Alkaline Phosphatase 154 H (35-129) units/L Total Protein 7.3 (6.3-8.2) g/dL Albumin 3.9 (3.9-5) g/dL Albumin/Globulin Ratio 1.1 % - Medical Decision Making Cdx: Sickle cell crisis Ddx: Vasoacculsive crisis, anemia, dehyrdration I will get cbc, bmp, reticulocyte count, IV analgesia and oral analgesia Critical care attestation.: If time is entered above; I have spent that time in minutes in the direct care of this critically ill patient, excluding procedure time. ED Disposition Clinical Impression: Anemia, sickle cell with crisis, Sickle cell pain crisis, Dehydration, mild Disposition: DC-01 TO HOME OR SELFCARE Is pt being admited?: No Does the pt Need Aspirin: No Condition: Stable Instructions: Sickle Cell Crisis (ED) Referrals: SEMAJ FLYNN DO [Primary Care Provider] - 3-5 Days
[2019-05-11 11:35] LABS: Alanine Aminotransferase 33 units/L (7-56); Albumin 3.9 g/dL (3.9-5); BUN/Creatinine Ratio 10; Blood Urea Nitrogen 7 mg/dL (7-17); Calcium 9.4 mg/dL (8.4-10.2); Hemolysis Index 8
[2019-05-11] MEDS ORDERED: PERCOCET 5/325 PO ONE (11:39)
[2019-05-11 13:49] LABS: HCG Qualitative,Urine Negative (Negative)
[2019-05-11] MEDS ORDERED: FLUSH HEPARIN IV ONE (15:08)
[2019-05-11 15:28] VITALS: BP 162/93
== END 2019-05-11 15:35 | disposition home or self-care (01) ==
LOC: ED 06:48
DX: D57.00 Hb-SS disease with crisis, unspecified (principal); E86.0 Dehydration; I10 Essential (primary) hypertension; M19.90 Unspecified osteoarthritis, unspecified site; J45.909 Unspecified asthma, uncomplicated; Z90.49 Acquired absence of other specified parts of digestive tract; Z79.899 Other long term (current) drug therapy; Z98.890 Other specified postprocedural states; Z88.6 Allergy status to analgesic agent
CPT/HCPCS: 36415; 80053; 81025; 85025; 85045; 96361; 96374; 96375; 96376; 99283; J1170; J1200; J1642; J2405; J7030

== ENCOUNTER 2019-05-17 07:30 | Emergency (ER) | payer MEDICAID ==
[2019-05-17] MEDS ORDERED: DILAUDID IV ONE ×3 (10:18→11:46)
[2019-05-17] MEDS ORDERED: ZOFRAN IV ONE (10:18)
[2019-05-17] MEDS ORDERED: BENADRYL IV ONE (10:18)
--- NOTE | 2019-05-17 10:27 | Emergency Department Report ---
ED General Adult HPI - General Chief complaint: Sickle Cell Crisis Stated complaint: SICKLE CELL CRISIS Time Seen by Provider: 05/17/19 10:09 Source: patient Mode of arrival: Ambulatory Limitations: No Limitations - History of Present Illness Initial comments: Ms. Mendoza is a 33 yo female with hx of HTN, SCD, who presents with pain in back and legs. Severe 10/10 pain. No fever. No dyspnea. No chest pain. According to EMR, she has hx of pneumonia necessitating mechanical ventilation. 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 She attempted Percocet at home for breakthrough pain without relief. She also takes Methadone. -: Gradual, days(s) (1) Location: neck, left, right, lower extremity Severity scale (0 -10): 10 Quality: aching Consistency: constant Improves with: none Worsens with: none Associated Symptoms: denies other symptoms - Related Data Home Medications Medication Instructions Recorded Confirmed Last Taken Hydroxyurea [Hydrea] 500 mg PO DAILY 03/19/19 04/22/19 04/22/19 Methadone [Dolophine] 10 mg PO BID 03/19/19 04/22/19 04/22/19 cloNIDine [Catapres] 0.2 mg PO BID 03/19/19 04/22/19 Unknown Oxycodone HCl/Acetaminophen 1 each PO Q4-6H PRN 04/22/19 04/22/19 04/22/19 [Percocet 10/325 mg] Previous Rx's Medication Instructions Recorded Last Taken Type Folic Acid [Folvite] 1 mg PO DAILY #30 tablet 07/29/16 Unknown Rx Lisinopril [Zestril TAB] 40 mg PO QDAY #30 tablet 12/02/16 04/22/19 Rx amLODIPine [Norvasc] 10 mg PO QDAY #30 tablet 12/02/16 04/22/19 Rx Allergies Allergy/AdvReac Type Severity Reaction Status Date / Time morphine Allergy Shortness Verified 05/03/19 07:32 of Breath ED Review of Systems ROS: Stated complaint: SICKLE CELL CRISIS Other details as noted in HPI Comment: All other systems reviewed and negative Constitutional: denies: fever, malaise Respiratory: denies: cough Cardiovascular: denies: chest pain ED Past Medical Hx - Past Medical History Previous Medical History?: Yes Hx Hypertension: Yes Hx Heart Attack/AMI: No Hx Congestive Heart Failure: No Hx Diabetes: No Hx Sickle Cell Disease: Yes Hx Arthritis: Yes Hx Asthma: Yes Hx COPD: No Hx HIV: No Additional medical history: ANEMIA, multiple port infections - Surgical History Past Surgical History?: Yes Hx Cholecystectomy: Yes Additional Surgical History: , port removed June 2014. PICC line left upper arm (11/19/2014). . - Social History Smoking Status: Never Smoker Substance Use Type: None - Medications Home Medications: Home Medications Medication Instructions Recorded Confirmed Last Taken Type Folic Acid [Folvite] 1 mg PO DAILY #30 tablet 07/29/16 04/22/19 Unknown Rx Lisinopril [Zestril TAB] 40 mg PO QDAY #30 tablet 12/02/16 04/22/19 04/22/19 Rx amLODIPine [Norvasc] 10 mg PO QDAY #30 tablet 12/02/16 04/22/19 04/22/19 Rx Hydroxyurea [Hydrea] 500 mg PO DAILY 03/19/19 04/22/19 04/22/19 History Methadone [Dolophine] 10 mg PO BID 03/19/19 04/22/19 04/22/19 History cloNIDine [Catapres] 0.2 mg PO BID 03/19/19 04/22/19 Unknown History Oxycodone HCl/Acetaminophen 1 each PO Q4-6H PRN 04/22/19 04/22/19 04/22/19 History [Percocet 10/325 mg] ED Physical Exam - General Limitations: No Limitations General appearance: alert, in no apparent distress - Head Head exam: Present: atraumatic, normocephalic - Eye Eye exam: Present: normal appearance - ENT ENT exam: Present: mucous membranes moist - Neck Neck exam: Present: normal inspection, full ROM - Respiratory Respiratory exam: Present: normal lung sounds bilaterally. Absent: respiratory distress, wheezes, rales, rhonchi - Cardiovascular Cardiovascular Exam: Present: regular rate, normal rhythm, normal heart sounds. Absent: systolic murmur, diastolic murmur, rubs, gallop - GI/Abdominal GI/Abdominal exam: Present: soft, normal bowel sounds. Absent: distended, tenderness, guarding, rebound - Extremities Exam Extremities exam: Present: normal inspection - Back Exam Back exam: Present: normal inspection - Neurological Exam Neurological exam: Present: alert, oriented X3 - Psychiatric Psychiatric exam: Present: normal affect, normal mood - Skin Skin exam: Present: warm, dry, intact, normal color. Absent: rash ED Course Vital Signs 05/17/19 05/17/19 05/17/19 07:38 09:45 10:06 Temperature 98.7 F Pulse Rate 89 83 Respiratory 18 16 16 Rate Blood Pressure 170/101 164/102 [Right] O2 Sat by Pulse 99 98 98 Oximetry 05/17/19 05/17/19 05/17/19 10:37 11:07 11:46 Temperature Pulse Rate Respiratory 16 16 16 Rate Blood Pressure [Right] O2 Sat by Pulse Oximetry 05/17/19 12:16 Temperature Pulse Rate 90 Respiratory 16 Rate Blood Pressure 154/94 [Right] O2 Sat by Pulse 98 Oximetry ED Medical Decision Making - Lab Data Result diagrams: 05/17/19 09:53 - Medical Decision Making Alexysis presents with sickle cell pain crisis. NO indication of infection or severe complication of SCD with the exception of pain. Ms. Mendoza received IV hydration, IV analgesia. She has leukocytosis without SIRS. She felt much better after receiving 3 doses of 2 mg of hydromorphone. dc'd home in stable improved condition. Critical care attestation.: If time is entered above; I have spent that time in minutes in the direct care of this critically ill patient, excluding procedure time. ED Disposition Clinical Impression: Anemia, sickle cell with crisis Disposition: DC-01 TO HOME OR SELFCARE Is pt being admited?: No Does the pt Need Aspirin: No Condition: Stable Additional Instructions: Please see Dr. Torres next available appointment. Please let Dr. Torres know that you were evaluated in the emergency department.
[2019-05-17 10:50] LABS: Hematocrit 26.5 % (30.3-42.9); Mean Corpuscular HGB Conc 34 % (30-34); Mean Corpuscular Volume 90 fl (79-97); Platelet Count 507 K/mm3 (140-440); Red Blood Count 2.96 M/mm3 (3.65-5.03); Red Cell Distribution Width 19.2 % (13.2-15.2)
[2019-05-17] MEDS ORDERED: D5NS 0.2% 1,000 ML IV SCH (11:00)
[2019-05-17] MEDS ORDERED: DILAUDID ONE (11:44)
[2019-05-17 12:17] VITALS: BP 154/94
[2019-05-17 12:26] LABS: Basophils % (Manual) 0 % (0.0-1.8); Eosinophils % (Manual) 5.5 % (0.0-4.3); Nucleated Red Blood Cells 0.5 % (0.0-0.9); Total Cells Counted 200
[2019-05-17 12:33] LABS: Anisocytosis 1+
[2019-05-17 12:34] LABS: Platelet Estimate Consistent w Auto; Target Cells 2+
[2019-05-17] MEDS ORDERED: FLUSH HEPARIN IV ONE (12:51)
== END 2019-05-17 13:05 | disposition home or self-care (01) ==
LOC: ED 07:30
DX: D57.00 Hb-SS disease with crisis, unspecified (principal); D64.9 Anemia, unspecified; I10 Essential (primary) hypertension; M19.90 Unspecified osteoarthritis, unspecified site; J45.909 Unspecified asthma, uncomplicated; Z90.49 Acquired absence of other specified parts of digestive tract; Z79.899 Other long term (current) drug therapy; Z88.6 Allergy status to analgesic agent
CPT/HCPCS: 36415; 85007; 85025; 85045; 96374; 96375; 96376; 99283; J1170; J1200; J1642; J2405; 96361

== ENCOUNTER 2019-05-23 10:17 | Observation (INO) | payer MEDICAID ==
[2019-05-23] MEDS ORDERED: ZOFRAN IV ONE (11:06)
[2019-05-23] MEDS ORDERED: NACL 0.9% 1000 ML 1,000 ML IV ONE (11:06)
[2019-05-23] MEDS ORDERED: TORADOL IV ONE (11:06)
[2019-05-23] MEDS ORDERED: DILAUDID IV ONE ×3 (11:07→13:19)
[2019-05-23] MEDS ORDERED: BENADRYL IV ONE (11:07)
--- NOTE | 2019-05-23 11:08 | Emergency Department Report ---
ED General Adult HPI - General Chief complaint: Sickle Cell Crisis Stated complaint: SICKLE CELL CRISIS Time Seen by Provider: 05/23/19 11:03 Source: patient Mode of arrival: Ambulatory Limitations: No Limitations - History of Present Illness Initial comments: Patient is a 33-year-old female absence emergency room with complaints of back and leg pain. Patient states the pain is a 10 out of 10. Patient states feels like a sickle cell crisis. Patient states she has been taking her medications properly. Patient states she has been taking Percocet and methadone for the past but nothing is helping outpatient. Patient states the pain has been going on for 2 days but is worsening. Patient denies fever chills. Patient denies chest pain shortness of breath. Patient states her primary care is Dr. Torres. -: Sudden Location: back, lower extremity Radiation: non-radiation Severity scale (0 -10): 10 Quality: stabbing, crushing Consistency: constant Improves with: rest Worsens with: movement Associated Symptoms: denies: confusion, chest pain, cough, diaphoresis, fever/chills, headaches, loss of appetite, malaise, nausea/vomiting, rash, seizure, shortness of breath, syncope Treatments Prior to Arrival: none - Related Data Home Medications Medication Instructions Recorded Confirmed Last Taken Hydroxyurea [Hydrea] 500 mg PO DAILY 03/19/19 04/22/19 04/22/19 Methadone [Dolophine] 10 mg PO BID 03/19/19 04/22/19 04/22/19 cloNIDine [Catapres] 0.2 mg PO BID 03/19/19 04/22/19 Unknown Oxycodone HCl/Acetaminophen 1 each PO Q4-6H PRN 04/22/19 04/22/19 04/22/19 [Percocet 10/325 mg] Previous Rx's Medication Instructions Recorded Last Taken Type Folic Acid [Folvite] 1 mg PO DAILY #30 tablet 07/29/16 Unknown Rx Lisinopril [Zestril TAB] 40 mg PO QDAY #30 tablet 12/02/16 04/22/19 Rx amLODIPine [Norvasc] 10 mg PO QDAY #30 tablet 12/02/16 04/22/19 Rx Allergies Allergy/AdvReac Type Severity Reaction Status Date / Time morphine Allergy Shortness Verified 05/23/19 10:18 of Breath ED Review of Systems ROS: Stated complaint: SICKLE CELL CRISIS Other details as noted in HPI Constitutional: denies: chills, fever Eyes: denies: eye pain, eye discharge, vision change ENT: denies: ear pain, throat pain Respiratory: denies: cough, shortness of breath, wheezing Cardiovascular: denies: chest pain, palpitations Endocrine: no symptoms reported Gastrointestinal: denies: abdominal pain, nausea, diarrhea Genitourinary: denies: urgency, dysuria, discharge Musculoskeletal: back pain. denies: joint swelling, arthralgia Skin: denies: rash, lesions Neurological: denies: headache, weakness, paresthesias Psychiatric: denies: anxiety, depression Hematological/Lymphatic: denies: easy bleeding, easy bruising ED Past Medical Hx - Past Medical History Previous Medical History?: Yes Hx Hypertension: Yes Hx Heart Attack/AMI: No Hx Congestive Heart Failure: No Hx Diabetes: No Hx Sickle Cell Disease: Yes Hx Arthritis: Yes Hx Asthma: Yes Hx COPD: No Hx HIV: No Additional medical history: ANEMIA, multiple port infections - Surgical History Past Surgical History?: Yes Hx Cholecystectomy: Yes Additional Surgical History: , port removed June 2014. PICC line left upper arm (11/19/2014). . - Social History Smoking Status: Never Smoker Substance Use Type: None - Medications Home Medications: Home Medications Medication Instructions Recorded Confirmed Last Taken Type Folic Acid [Folvite] 1 mg PO DAILY #30 tablet 07/29/16 04/22/19 Unknown Rx Lisinopril [Zestril TAB] 40 mg PO QDAY #30 tablet 12/02/16 04/22/19 04/22/19 Rx amLODIPine [Norvasc] 10 mg PO QDAY #30 tablet 12/02/16 04/22/19 04/22/19 Rx Hydroxyurea [Hydrea] 500 mg PO DAILY 03/19/19 04/22/19 04/22/19 History Methadone [Dolophine] 10 mg PO BID 03/19/19 04/22/19 04/22/19 History cloNIDine [Catapres] 0.2 mg PO BID 03/19/19 04/22/19 Unknown History Oxycodone HCl/Acetaminophen 1 each PO Q4-6H PRN 04/22/19 04/22/19 04/22/19 History [Percocet 10/325 mg] ED Physical Exam - General Limitations: No Limitations General appearance: alert, in no apparent distress - Head Head exam: Present: atraumatic, normocephalic - Eye Eye exam: Present: normal appearance - ENT ENT exam: Present: mucous membranes moist - Neck Neck exam: Present: normal inspection - Respiratory Respiratory exam: Present: normal lung sounds bilaterally. Absent: respiratory distress - Cardiovascular Cardiovascular Exam: Present: regular rate, normal rhythm. Absent: systolic murmur, diastolic murmur, rubs, gallop - GI/Abdominal GI/Abdominal exam: Present: soft, normal bowel sounds - Extremities Exam Extremities exam: Present: normal inspection - Back Exam Back exam: Present: normal inspection - Neurological Exam Neurological exam: Present: alert, oriented X3 - Psychiatric Psychiatric exam: Present: normal affect, normal mood - Skin Skin exam: Present: warm, dry, intact, normal color. Absent: rash ED Course Vital Signs 05/23/19 05/23/19 10:22 12:27 Temperature 98 F Pulse Rate 82 Respiratory 16 Rate Blood Pressure 179/82 Blood Pressure 161/75 [Left] O2 Sat by Pulse 96 97 Oximetry - Reevaluation(s) Reevaluation #1: Patient reassessed the patient states her pain is not improving. Patient given another 2 mg of Dilaudid. 05/23/19 12:16 Reevaluation #2: Discussed all results with patient. Discussed plan of care patient. Patient agrees plan of care and admission. Patient will be admitted to the hospital service. 05/23/19 13:16 - Consultations Consultation #1: Hospitalist consultation for admission. Hospitalist to admit patient. Hospitalist to assume care patient. Bridging orders placed 05/23/19 13:16 ED Medical Decision Making - Lab Data Result diagrams: 05/23/19 11:39 05/23/19 11:39 - Medical Decision Making Patient is a 33-year-old female that presents emergency room with complaints of sickle cell crisis and pain. Patient given multiple medications and pain continues. Patient admitted to the hospitalist service. Patient's labs unremarkable except for anemia. Patient's port was accessed for IV access. - Differential Diagnosis sickle cell crisis. Back pain. Leg pain. Critical Care Time: Yes Critical care attestation.: If time is entered above; I have spent that time in minutes in the direct care of this critically ill patient, excluding procedure time. Critical Care Time: 35 minutes ED Disposition Clinical Impression: Anemia, sickle cell with crisis, Sickle cell pain crisis Disposition: DC09 OP ADMIT IP TO THIS HOSP Is pt being admited?: Yes Does the pt Need Aspirin: No Condition: Critical Time of Disposition: 13:19
[2019-05-23 12:05] LABS: Basophils # (Auto) 0.1 K/mm3 (0.0-0.1); Basophils % (Auto) 0.8 % (0.0-1.8); Eosinophils # (Auto) 1.2 K/mm3 (0.0-0.4); Eosinophils % (Auto) 7.4 % (0.0-4.3); Hematocrit 22.9 % (30.3-42.9); Hemoglobin 7.7 gm/dl (10.1-14.3); Lymphocytes # (Auto) 3.2 K/mm3 (1.2-5.4); Lymphocytes % (Auto) 20.7 % (13.4-35.0); Mean Corpuscular HGB Conc 34 % (30-34); Mean Corpuscular Volume 90 fl (79-97); Monocytes % (Auto) 6.6 % (0.0-7.3); Platelet Count 482 K/mm3 (140-440); Red Blood Count 2.54 M/mm3 (3.65-5.03)
[2019-05-23 12:07] LABS: Red Cell Distribution Width 20.1 % (13.2-15.2)
[2019-05-23] MEDS ORDERED: ATIVAN ONE (12:22)
[2019-05-23 12:29] LABS: Alanine Aminotransferase 41 units/L (7-56); Albumin 3.6 g/dL (3.9-5); BUN/Creatinine Ratio 19; Bilirubin,Direct 0.4 mg/dL (0-0.2); Blood Urea Nitrogen 17 mg/dL (7-17); Calcium 8.9 mg/dL (8.4-10.2); Hemolysis Index 13
[2019-05-23] MEDS ORDERED: BENADRYL ONE (13:32)
[2019-05-23] MEDS: BENADRYL IV PRN ×2 (13:50→20:37)
[2019-05-23] MEDS ORDERED: NORCO 5/325 PO PRN (16:33)
[2019-05-23] MEDS ORDERED: ZOFRAN IV PRN ×2 (16:33→19:04)
[2019-05-23] MEDS ORDERED: SODIUM CHLORIDE FLUSH SYRINGE 10 ML IV PRN ×2 (16:33→19:04)
[2019-05-23] MEDS ORDERED: TYLENOL PO PRN ×2 (16:33→19:04)
[2019-05-23] MEDS ORDERED: REGLAN IV PRN (16:33)
--- NOTE | 2019-05-23 16:33 | History and Physical Report ---
History of Present Illness Date of examination: 05/23/19 Date of admission: 05/23/19 13:20 Chief complaint: Severe lower back pain and lower exudative pain since 2 days History of present illness: 22-year-old -[place] female with history of sickle cell disease and hypertension and chronic pain comes in for severe pain in the lower back and the lower extremities. Pain is about 10 on a scale of 1-10--severe and unbearable. Patient normally takes Percocet and methadone on a regular basis which is not helping her pain. Patient has been taking her folic acid and methadone. No shortness of breath. No chest pain. No diaphoresis. No nausea no vomiting. Pain is sharp and intermittent. No recent travel. No fever or chills. Past Medical History Previous Medical History?: Yes Hypertension: Yes Sickle Cell Disease: Yes Arthritis: Yes Asthma: Yes Additional medical history: ANEMIA, multiple port infections Surgical History Past Surgical History?: Yes Cholecystectomy: Yes Additional Surgical History: , port removed June 2014. PICC line left upper arm (11/19/2014). . Social History Smoking Status: Never Smoker Substance Use Type: None Medications Home Medications: Home Medications Medication Instructions Recorded Confirmed Last Taken Type Folic Acid [Folvite] 1 mg PO DAILY #30 tablet 07/29/16 04/22/19 Unknown Rx Lisinopril [Zestril TAB] 40 mg PO QDAY #30 tablet 12/02/16 04/22/19 04/22/19 Rx amLODIPine [Norvasc] 10 mg PO QDAY #30 tablet 12/02/16 04/22/19 04/22/19 Rx Hydroxyurea [Hydrea] 500 mg PO DAILY 03/19/19 04/22/19 04/22/19 History Methadone [Dolophine] 10 mg PO BID 03/19/19 04/22/19 04/22/19 History cloNIDine [Catapres] 0.2 mg PO BID 03/19/19 04/22/19 Unknown History Oxycodone HCl/Acetaminophen 1 each PO Q4-6H PRN 04/22/19 04/22/19 04/22/19 History [Percocet 10/325 mg] Review of systems ROS: Stated complaint: SICKLE CELL CRISIS Other details as noted in HPI Constitutional: denies: chills, fever Eyes: denies: eye pain, eye discharge, vision change ENT: denies: ear pain, throat pain Respiratory: denies: cough, shortness of breath, wheezing Cardiovascular: denies: chest pain, palpitations Endocrine: no symptoms reported Gastrointestinal: denies: abdominal pain, nausea, diarrhea Genitourinary: denies: urgency, dysuria, discharge Musculoskeletal: back pain. Severe tenderness scale of 1-10 also lower extremity pain especially the back of thighs denies: joint swelling, arthralgia Skin: denies: rash, lesions Neurological: denies: headache, weakness, paresthesias Psychiatric: denies: anxiety, depression Hematological/Lymphatic: denies: easy bleeding, easy bruising 14 point review of systems done and otherwise negative 14 point review of systems done and otherwise negative Medications and Allergies Allergies Allergy/AdvReac Type Severity Reaction Status Date / Time morphine Allergy Shortness Verified 05/23/19 10:18 of Breath Home Medications Medication Instructions Recorded Confirmed Last Taken Type Folic Acid [Folvite] 1 mg PO DAILY #30 tablet 07/29/16 05/23/19 Unknown Rx Lisinopril [Zestril TAB] 40 mg PO QDAY #30 tablet 12/02/16 05/23/19 05/23/19 Rx amLODIPine [Norvasc] 10 mg PO QDAY #30 tablet 12/02/16 05/23/19 05/23/19 Rx Hydroxyurea [Hydrea] 500 mg PO DAILY 03/19/19 05/23/19 05/23/19 History Methadone [Dolophine] 10 mg PO BID 03/19/19 05/23/19 05/23/19 History cloNIDine [Catapres] 0.2 mg PO BID 03/19/19 05/23/19 Unknown History Oxycodone HCl/Acetaminophen 1 each PO Q4-6H PRN 04/22/19 05/23/19 05/23/19 History [Percocet 10/325 mg] Active Meds: Active Medications Diphenhydramine HCl (Benadryl) 25 mg IV Q6H PRN PRN Reason: Itching Last Admin: 05/23/19 13:50 Dose: 25 mg Documented by: Exam - Constitutional Vitals: Temp Pulse Resp BP Pulse Ox 98 F 82 16 134/65 94 05/23/19 10:22 05/23/19 10:22 05/23/19 10:22 05/23/19 14:30 05/23/19 14:30 General appearance: Present: mild distress, well-nourished - EENT Eyes: Present: PERRL ENT: hearing intact, clear oral mucosa - Neck Neck: Present: supple, normal ROM - Respiratory Respiratory effort: normal Respiratory: bilateral: CTA - Cardiovascular Heart rate: 86 Rhythm: regular Heart Sounds: Present: S1 & S2. Absent: rub, click - Extremities Extremities: no ischemia, pulses intact, pulses symmetrical, No edema Peripheral Pulses: within normal limits - Abdominal General gastrointestinal: Present: soft, non-tender, non-distended, normal bowel sounds Female genitourinary: Present: normal - Rectal Rectal Exam: deferred - Integumentary Integumentary: Present: clear, warm, dry - Musculoskeletal Musculoskeletal: gait normal, strength equal bilaterally - Psychiatric Psychiatric: appropriate mood/affect, intact judgment & insight - Neurologic Neurologic: CNII-XII intact, moves all extremities - Allied Health Allied health notes reviewed: nursing, case management Results - Labs CBC & Chem 7: 05/23/19 11:39 05/23/19 11:39 Labs: Laboratory Last Values WBC 15.5 K/mm3 (4.5-11.0) H 05/23/19 11:39 RBC 2.54 M/mm3 (3.65-5.03) L 05/23/19 11:39 Hgb 7.7 gm/dl (10.1-14.3) L 05/23/19 11:39 Hct 22.9 % (30.3-42.9) L 05/23/19 11:39 MCV 90 fl (79-97) 05/23/19 11:39 MCH 30 pg (28-32) 05/23/19 11:39 MCHC 34 % (30-34) 05/23/19 11:39 RDW 20.1 % (13.2-15.2) H 05/23/19 11:39 Plt Count 482 K/mm3 (140-440) H 05/23/19 11:39 Lymph % (Auto) 20.7 % (13.4-35.0) 05/23/19 11:39 [place] % (Auto) 6.6 % (0.0-7.3) 05/23/19 11:39 Eos % (Auto) 7.4 % (0.0-4.3) H 05/23/19 11:39 Baso % (Auto) 0.8 % (0.0-1.8) 05/23/19 11:39 Lymph # 3.2 K/mm3 (1.2-5.4) 05/23/19 11:39 [place] # 1.0 K/mm3 (0.0-0.8) H 05/23/19 11:39 Eos # 1.2 K/mm3 (0.0-0.4) H 05/23/19 11:39 Baso # 0.1 K/mm3 (0.0-0.1) 05/23/19 11:39 Seg Neutrophils % 64.5 % (40.0-70.0) 05/23/19 11:39 Seg Neutrophils # 10.0 K/mm3 (1.8-7.7) H 05/23/19 11:39 Percent Retic 11.92 % (0.78-2.58) H 05/23/19 11:39 Sodium 140 mmol/L (137-145) 05/23/19 11:39 Potassium 4.8 mmol/L (3.6-5.0) 05/23/19 11:39 Chloride 103.9 mmol/L (98-107) 05/23/19 11:39 Carbon Dioxide 25 mmol/L (22-30) 05/23/19 11:39 16 mmol/L 05/23/19 11:39 BUN 17 mg/dL (7-17) 05/23/19 11:39 0.9 mg/dL (0.7-1.2) 05/23/19 11:39 Estimated GFR > 60 ml/min 05/23/19 11:39 19 % 05/23/19 11:39 Glucose 97 mg/dL (65-100) 05/23/19 11:39 Calcium 8.9 mg/dL (8.4-10.2) 05/23/19 11:39 1.60 mg/dL (0.1-1.2) H 05/23/19 11:39 0.4 mg/dL (0-0.2) H 05/23/19 11:39 1.2 mg/dL 05/23/19 11:39 AST 36 units/L (5-40) 05/23/19 11:39 ALT 41 units/L (7-56) 05/23/19 11:39 148 units/L (35-129) H 05/23/19 11:39 7.4 g/dL (6.3-8.2) 05/23/19 11:39 3.6 g/dL (3.9-5) L 05/23/19 11:39 0.9 % 05/23/19 11:39 HCG, Qual Negative (Negative) 05/23/19 11:39 Blood Type A POSITIVE 05/23/19 13:29 Antibody Screen Negative 05/23/19 13:29 Short CBC 05/23/19 Range/Units 11:39 WBC 15.5 H (4.5-11.0) K/mm3 Hgb 7.7 L (10.1-14.3) gm/dl Hct 22.9 L (30.3-42.9) % Plt Count 482 H (140-440) K/mm3 BMP 05/23/19 11:39 Sodium 140 Potassium 4.8 Chloride 103.9 Carbon Dioxide 25 BUN 17 Creatinine 0.9 Glucose 97 Calcium 8.9 Liver Function 05/23/19 Range/Units 11:39 Total Bilirubin 1.60 H (0.1-1.2) mg/dL Direct Bilirubin 0.4 H (0-0.2) mg/dL AST 36 (5-40) units/L ALT 41 (7-56) units/L Alkaline Phosphatase 148 H (35-129) units/L Albumin 3.6 L (3.9-5) g/dL Assessment and Plan Advance Directives: Yes (full code) VTE prophylaxis?: Chemical Plan of care discussed with patient/family: Yes - Patient Problems (1) SIRS (systemic inflammatory response syndrome) Current Visit: Yes Status: Acute Plan to address problem: Patient has a high white count IV fluids IV Rocephin empirically No source of infection found Chest x-ray was not done on admission Chest x-ray ordered (2) Sickle cell anemia with crisis Current Visit: Yes Status: Acute Plan to address problem: Reticulocyte count of 11.92. IV fluids for now Continue hydroxyurea and folic acid Blood transfusion if necessary Hemoglobin 7.7 IV Dilaudid 2 mg every 3 when necessary (3) Acute hemolytic anemia Current Visit: Yes Status: Acute Plan to address problem: Secondary to hemolysis Transfuse if hemoglobin less than 7 (4) Hypertension Current Visit: Yes Status: Chronic Qualifiers: Hypertension type: essential hypertension Qualified Code(s): I10 - Essential (primary) hypertension Plan to address problem: Continue antihypertensives (5) Dehydration, moderate Current Visit: No Status: Acute Plan to address problem: IV fluids for now (6) DVT prophylaxis Current Visit: No Status: Acute Plan to address problem: Patient on Lovenox and GI prophylaxis
[2019-05-23] MEDS ORDERED: NON-FORMULARY (Oxycodone Hcl/Acetaminophen [Percocet 10/325 Mg] 1 EACH) PO PRN (16:36)
[2019-05-23] MEDS ORDERED: PERCOCET 5/325 PO PRN (17:15)
[2019-05-23] MEDS: DILAUDID IV PRN ×3 (17:25→23:31)
[2019-05-23] MEDS: HYDREA PO SCH (17:33)
[2019-05-23] MEDS: NORVASC PO SCH (17:33)
[2019-05-23] MEDS: ZESTRIL PO SCH (17:33)
[2019-05-23] MEDS: NACL 0.9% 1000 ML 1,000 ML IV SCH (18:39)
[2019-05-23] MEDS: FOLVITE PO SCH (18:40)
[2019-05-23] MEDS ORDERED: AMBIEN PO PRN (19:04)
[2019-05-23] MEDS: ROCEPHIN/NS 2 GM/100 ML 2 GM/100 ML BAG IV SCH (21:46)
[2019-05-23] MEDS: DOLOPHINE PO SCH (21:46)
[2019-05-23] MEDS: CATAPRES PO SCH (21:46)
[2019-05-23] MEDS: SODIUM CHLORIDE FLUSH SYRINGE 10 ML IV SCH ×2 (21:47)
[2019-05-23] MEDS: PEPCID PO SCH (21:47)
[2019-05-24] MEDS: BENADRYL IV PRN ×4 (02:39→20:59)
[2019-05-24] MEDS: NACL 0.9% 1000 ML 1,000 ML IV SCH ×2 (02:39→09:20)
[2019-05-24] MEDS: DILAUDID IV PRN ×6 (02:39→18:07)
[2019-05-24 06:58] LABS: Basophils # (Auto) 0.1 K/mm3 (0.0-0.1); Basophils % (Auto) 0.7 % (0.0-1.8); Eosinophils # (Auto) 1.9 K/mm3 (0.0-0.4); Eosinophils % (Auto) 11.5 % (0.0-4.3); Hemoglobin 6.3 gm/dl (10.1-14.3); Lymphocytes # (Auto) 3.6 K/mm3 (1.2-5.4); Lymphocytes % (Auto) 22.5 % (13.4-35.0); Mean Corpuscular HGB Conc 34 % (30-34); Mean Corpuscular Volume 89 fl (79-97); Monocytes # (Auto) 1.2 K/mm3 (0.0-0.8); Monocytes % (Auto) 7.2 % (0.0-7.3); Platelet Count 413 K/mm3 (140-440); Red Blood Count 2.08 M/mm3 (3.65-5.03); Red Cell Distribution Width 19.1 % (13.2-15.2)
[2019-05-24 07:04] LABS: Hematocrit 18.6 % (30.3-42.9)
[2019-05-24 07:17] LABS: Alanine Aminotransferase 45 units/L (7-56); Albumin 3.3 g/dL (3.9-5); BUN/Creatinine Ratio 19; Blood Urea Nitrogen 15 mg/dL (7-17); Calcium 8.5 mg/dL (8.4-10.2); Hemolysis Index 13
--- NOTE | 2019-05-24 08:17 | Progress Note ---
Assessment and Plan Assessment and plan: Patient is a 33 yo man with a history of hypertension, hemolytic anemia, chronic pain syndrome, pneumonia and sickle cell anemia who presented with pain crisis Sickle cell vaso-occlusive crisis: pain control Acute on chronic anemia, below baseline: transfuse 1 unit of PRBC, consult Heme/Onc SIRS w/o organ dysfunction Mild malnutrition: dietary supplement Chronic pain syndrome: will review [employer] Aware prior to discharge Morbid Obesity, bmi 47.6: educate History Interval history: Patient was seen and examined. Follow-up on current diagnosis of SS pain crisis. No overnight events reported to me. Patient denies any chest pain, shortness breath, nausea/vomiting or severe headaches. Imaging, nursing note, chart, labs and old chart reviewed. Discussed with patient. Hospitalist Physical - Physical exam Narrative exam: Gen: Morbid obese bmi 47.6, NAD, Awake, Alert, Orientated HEENT: NCAT, EOMI, PERRL, OP Clear Neck: supple, no adenopathy, no thyromegaly, no JVD CVS/Heart: RRR, normal S1S2, pulses present bilaterally Chest/Lungs: CTA B, Symmetrical chest expansion, good air entry bilaterally GI/Abdomen: soft, NTND, good bowel sounds, no guarding or rebound /Bladder: no suprapubic tenderness, no CVA or paraspinal tenderness Extermity/Skin: no c/c/e, no obvious rash MSK: FROM x 4 Neuro: CN 2-12 grossly intact, no new focal deficits Psych: calm - Constitutional Vitals: Temp Pulse Resp BP Pulse Ox 98.1 F 86 20 141/71 94 05/23/19 23:28 05/23/19 23:28 05/23/19 23:28 05/23/19 23:28 05/23/19 23:28 General appearance: Absent: mild distress, well-nourished Results - Labs CBC & Chem 7: 05/24/19 06:00 05/24/19 06:00 Labs: Laboratory Last Values WBC 16.2 K/mm3 (4.5-11.0) H 05/24/19 06:00 RBC 2.08 M/mm3 (3.65-5.03) L 05/24/19 06:00 Hgb 6.3 gm/dl (10.1-14.3) L 05/24/19 06:00 Hct 18.6 % (30.3-42.9) L* 05/24/19 06:00 MCV 89 fl (79-97) 05/24/19 06:00 MCH 31 pg (28-32) 05/24/19 06:00 MCHC 34 % (30-34) 05/24/19 06:00 RDW 19.1 % (13.2-15.2) H 05/24/19 06:00 Plt Count 413 K/mm3 (140-440) 05/24/19 06:00 Lymph % (Auto) 22.5 % (13.4-35.0) 05/24/19 06:00 [place] % (Auto) 7.2 % (0.0-7.3) 05/24/19 06:00 Eos % (Auto) 11.5 % (0.0-4.3) H 05/24/19 06:00 Baso % (Auto) 0.7 % (0.0-1.8) 05/24/19 06:00 Lymph # 3.6 K/mm3 (1.2-5.4) 05/24/19 06:00 [place] # 1.2 K/mm3 (0.0-0.8) H 05/24/19 06:00 Eos # 1.9 K/mm3 (0.0-0.4) H 05/24/19 06:00 Baso # 0.1 K/mm3 (0.0-0.1) 05/24/19 06:00 Seg Neutrophils % 58.1 % (40.0-70.0) 05/24/19 06:00 Seg Neutrophils # 9.4 K/mm3 (1.8-7.7) H 05/24/19 06:00 Percent Retic 11.92 % (0.78-2.58) H 05/23/19 11:39 Sodium 137 mmol/L (137-145) 05/24/19 06:00 Potassium 4.6 mmol/L (3.6-5.0) 05/24/19 06:00 Chloride 104.8 mmol/L (98-107) 05/24/19 06:00 Carbon Dioxide 25 mmol/L (22-30) 05/24/19 06:00 12 mmol/L 05/24/19 06:00 BUN 15 mg/dL (7-17) 05/24/19 06:00 0.8 mg/dL (0.7-1.2) 05/24/19 06:00 Estimated GFR > 60 ml/min 05/24/19 06:00 19 % 05/24/19 06:00 Glucose 91 mg/dL (65-100) 05/24/19 06:00 5.3 % (4-6) 05/23/19 11:39 Calcium 8.5 mg/dL (8.4-10.2) 05/24/19 06:00 1.40 mg/dL (0.1-1.2) H 05/24/19 06:00 0.4 mg/dL (0-0.2) H 05/23/19 11:39 1.2 mg/dL 05/23/19 11:39 AST 45 units/L (5-40) H 05/24/19 06:00 ALT 45 units/L (7-56) 05/24/19 06:00 129 units/L (35-129) 05/24/19 06:00 6.6 g/dL (6.3-8.2) 05/24/19 06:00 3.3 g/dL (3.9-5) L 05/24/19 06:00 1.0 % 05/24/19 06:00 HCG, Qual Negative (Negative) 05/23/19 11:39 Blood Type A POSITIVE 05/23/19 13:29 Antibody Screen Negative 05/23/19 13:29 Crossmatch See Detail 05/23/19 13:29 Active Medications - Current Medications Current Medications: Generic Name Dose Route Start Last Admin Trade Name Freq PRN Reason Stop Dose Admin Acetaminophen 650 mg 05/23/19 19:04 Tylenol PO Q4H PRN Pain MILD(1-3)/Fever >100.5/VILLA Amlodipine Besylate 10 mg 05/23/19 17:00 05/23/19 17:33 Norvasc PO Not Given QDAY CARIE Clonidine HCl 0.2 mg 05/23/19 22:00 05/23/19 21:46 Catapres PO 0.2 mg BID CARIE Administration Diphenhydramine HCl 25 mg 05/23/19 13:48 05/24/19 02:39 Benadryl IV 25 mg Q6H PRN Administration Itching Famotidine 20 mg 05/23/19 22:00 05/23/19 21:47 Pepcid PO 20 mg BID CARIE Administration Folic Acid 1 mg 05/23/19 17:00 05/23/19 18:40 Folvite PO 1 mg DAILY CARIE Administration Hydromorphone HCl 2 mg 05/23/19 16:33 05/24/19 05:58 Dilaudid IV 2 mg Q3H PRN Administration Pain , Severe (7-10) Hydroxyurea 500 mg 05/23/19 17:00 05/23/19 17:33 Hydrea PO Not Given DAILY CARIE Sodium Chloride 1,000 mls @ 125 mls/hr 05/23/19 17:00 05/24/19 02:39 Nacl 0.9% 1000 Ml IV 125 mls/hr DIRECT CARIE Administration Ceftriaxone Sodium 2 gm in 100 mls @ 200 mls/hr 05/23/19 20:00 05/23/19 21:46 Rocephin/Ns 2 Gm/100 Ml IV 200 mls/hr Q24H CARIE Administration Protocol Sodium Chloride 500 mls @ 0 mls/hr 05/24/19 08:11 Nacl 0.9% 500 Ml IV 05/24/19 08:12 ONCE ONE As Directed Lisinopril 40 mg 05/23/19 17:00 05/23/19 17:33 Zestril PO Not Given QDAY CARIE Methadone HCl 10 mg 05/23/19 22:00 05/23/19 21:46 Dolophine PO 10 mg BID CARIE Administration Metoclopramide HCl 10 mg 05/23/19 16:33 Reglan IV Q6H PRN Nausea And Vomiting Ondansetron HCl 4 mg 05/23/19 19:04 Zofran IV Q8H PRN Nausea And Vomiting Oxycodone/Acetaminophen 2 tab 05/23/19 17:15 Percocet 5/325 PO Q4H PRN Pain, Moderate (4-6) Sodium Chloride 10 ml 05/23/19 22:00 05/23/19 21:47 Sodium Chloride Flush Syringe 10 Ml IV 10 ml BID CARIE Administration Sodium Chloride 10 ml 05/23/19 16:33 Sodium Chloride Flush Syringe 10 Ml IV PRN PRN LINE FLUSH Sodium Chloride 10 ml 05/23/19 22:00 05/23/19 21:47 Sodium Chloride Flush Syringe 10 Ml IV 10 ml BID CARIE Administration Sodium Chloride 10 ml 05/23/19 19:04 Sodium Chloride Flush Syringe 10 Ml IV PRN PRN LINE FLUSH Zolpidem Tartrate 5 mg 05/23/19 19:04 Ambien PO QHS PRN Insomnia
[2019-05-24] MEDS ORDERED: NACL 0.9% 500 ML 500 ML IV ONE (09:00)
[2019-05-24] MEDS: CATAPRES PO SCH ×2 (09:17→20:59)
[2019-05-24] MEDS: PEPCID PO SCH ×2 (09:17→21:00)
[2019-05-24] MEDS: SODIUM CHLORIDE FLUSH SYRINGE 10 ML IV SCH ×4 (09:17→21:05)
[2019-05-24] MEDS: NORVASC PO SCH (09:18)
[2019-05-24] MEDS: DOLOPHINE PO SCH ×2 (09:18→20:59)
[2019-05-24] MEDS: ZESTRIL PO SCH (09:18)
[2019-05-24] MEDS: FOLVITE PO SCH (09:18)
[2019-05-24] MEDS: HYDREA PO SCH (09:23)
--- NOTE | 2019-05-24 16:39 | Consultation ---
History of Present Illness - Reason for Consult Consult date: 05/24/19 SCD/Anemia. - History of Present Illness Thank you for this consult, patient seen, resting in bed, records reviewed, just covering DR Smith. patient NO longer my private patient now for 5yrs, because she was released from the practice.She presented with her usual pain crisis, and is getting adequate treatment accordingly.Will add retic count to each lab draw, as this will help radha improvement, and recovery from acute crisis.She is scedulled for transfusion replacement, if not already had it. Past History Past Medical History: anemia Social history: lives with family Medications and Allergies Allergies Allergy/AdvReac Type Severity Reaction Status Date / Time morphine Allergy Shortness Verified 05/23/19 10:18 of Breath Home Medications Medication Instructions Recorded Confirmed Last Taken Type Folic Acid [Folvite] 1 mg PO DAILY #30 tablet 07/29/16 05/23/19 Unknown Rx Lisinopril [Zestril TAB] 40 mg PO QDAY #30 tablet 12/02/16 05/23/19 05/23/19 Rx amLODIPine [Norvasc] 10 mg PO QDAY #30 tablet 12/02/16 05/23/19 05/23/19 Rx Hydroxyurea [Hydrea] 500 mg PO DAILY 03/19/19 05/23/19 05/23/19 History Methadone [Dolophine] 10 mg PO BID 03/19/19 05/23/19 05/23/19 History cloNIDine [Catapres] 0.2 mg PO BID 03/19/19 05/23/19 Unknown History Oxycodone HCl/Acetaminophen 1 each PO Q4-6H PRN 04/22/19 05/23/19 05/23/19 History [Percocet 10/325 mg] Active Meds: Active Medications Acetaminophen (Tylenol) 650 mg PO Q4H PRN PRN Reason: Pain MILD(1-3)/Fever >100.5/VILLA Amlodipine Besylate (Norvasc) 10 mg PO QDAY [facility] Last Admin: 05/24/19 09:18 Dose: 10 mg Documented by: Clonidine HCl (Catapres) 0.2 mg PO BID [facility] Last Admin: 05/24/19 09:17 Dose: 0.2 mg Documented by: Diphenhydramine HCl (Benadryl) 25 mg IV Q6H PRN PRN Reason: Itching Last Admin: 05/24/19 15:06 Dose: 25 mg Documented by: Famotidine (Pepcid) 20 mg PO BID [facility] Last Admin: 05/24/19 09:17 Dose: 20 mg Documented by: Folic Acid (Folvite) 1 mg PO DAILY [facility] Last Admin: 05/24/19 09:18 Dose: 1 mg Documented by: Hydromorphone HCl (Dilaudid) 2 mg IV Q3H PRN PRN Reason: Pain , Severe (7-10) Last Admin: 05/24/19 15:05 Dose: 2 mg Documented by: Hydroxyurea (Hydrea) 500 mg PO DAILY [facility] Last Admin: 05/24/19 09:23 Dose: 500 mg Documented by: Sodium Chloride (Nacl 0.9% 1000 Ml) 1,000 mls @ 125 mls/hr IV DIRECT [facility] Last Admin: 05/24/19 09:20 Dose: 125 mls/hr Documented by: Ceftriaxone Sodium (Rocephin/Ns 2 Gm/100 Ml) 2 gm in 100 mls @ 200 mls/hr IV Q24H [facility]; Protocol Last Admin: 05/23/19 21:46 Dose: 200 mls/hr Documented by: Lisinopril (Zestril) 40 mg PO QDAY [facility] Last Admin: 05/24/19 09:18 Dose: 40 mg Documented by: Methadone HCl (Dolophine) 10 mg PO BID [facility] Last Admin: 05/24/19 09:18 Dose: 10 mg Documented by: Metoclopramide HCl (Reglan) 10 mg IV Q6H PRN PRN Reason: Nausea And Vomiting Ondansetron HCl (Zofran) 4 mg IV Q8H PRN PRN Reason: Nausea And Vomiting Oxycodone/Acetaminophen (Percocet 5/325) 2 tab PO Q4H PRN PRN Reason: Pain, Moderate (4-6) Sodium Chloride (Sodium Chloride Flush Syringe 10 Ml) 10 ml IV BID [facility] Last Admin: 05/24/19 09:17 Dose: 10 ml Documented by: Sodium Chloride (Sodium Chloride Flush Syringe 10 Ml) 10 ml IV PRN PRN PRN Reason: LINE FLUSH Sodium Chloride (Sodium Chloride Flush Syringe 10 Ml) 10 ml IV BID [facility] Last Admin: 05/24/19 10:00 Dose: 10 ml Documented by: Sodium Chloride (Sodium Chloride Flush Syringe 10 Ml) 10 ml IV PRN PRN PRN Reason: LINE FLUSH Zolpidem Tartrate (Ambien) 5 mg PO QHS PRN PRN Reason: Insomnia Review of Systems Constitutional: chronic pain Exam - Constitutional Vitals: Temp Pulse Resp BP Pulse Ox 98.3 F 89 22 132/51 90 05/24/19 12:24 05/24/19 12:24 05/24/19 12:24 05/24/19 12:24 05/24/19 12:24 General appearance: Present: mild distress - EENT Eyes: Present: PERRL ENT: hearing intact, clear oral mucosa - Neck Neck: Present: supple, normal ROM - Respiratory Respiratory effort: normal Respiratory: bilateral: CTA - Cardiovascular Heart Sounds: Present: S1 & S2. Absent: rub, click - Extremities Extremities: pulses symmetrical, No edema Peripheral Pulses: within normal limits - Abdominal General gastrointestinal: Present: soft, non-tender, non-distended, normal bowel sounds Female genitourinary: Present: deferred - Rectal Rectal Exam: deferred - Integumentary Integumentary: Present: clear, warm, dry - Musculoskeletal Musculoskeletal: gait normal, strength equal bilaterally - Psychiatric Psychiatric: appropriate mood/affect, intact judgment & insight - Neurologic Neurologic: CNII-XII intact, moves all extremities Results - Labs CBC & Chem 7: 05/24/19 06:00 05/24/19 06:00 Labs: Abnormal lab results 05/23/19 05/24/19 05/24/19 Range/Units 13:29 06:00 06:00 WBC 16.2 H (4.5-11.0) K/mm3 RBC 2.08 L (3.65-5.03) M/mm3 Hgb 6.3 L (10.1-14.3) gm/dl Hct 18.6 L* (30.3-42.9) % RDW 19.1 H (13.2-15.2) % Eos % (Auto) 11.5 H (0.0-4.3) % [place] # 1.2 H (0.0-0.8) K/mm3 Eos # 1.9 H (0.0-0.4) K/mm3 Seg Neutrophils # 9.4 H (1.8-7.7) K/mm3 Total Bilirubin 1.40 H (0.1-1.2) mg/dL AST 45 H (5-40) units/L Albumin 3.3 L (3.9-5) g/dL Crossmatch See Detail Assessment and Plan - Patient Problems (1) Sickle cell anemia with crisis Current Visit: Yes Status: Acute Plan to address problem: replacement transfusion. (2) Back pain Current Visit: No Status: Acute Qualifiers: Back pain location: low back pain Chronicity: acute Back pain laterality: bilateral Sciatica presence: without sciatica Qualified Code(s): M54.5 - Low back pain Plan to address problem: Pain control as you are already doing. (3) Dehydration Current Visit: Yes Status: Acute Plan to address problem: Hydration
[2019-05-25] MEDS: ROCEPHIN/NS 2 GM/100 ML 2 GM/100 ML BAG IV SCH ×2 (00:18→23:29)
[2019-05-25] MEDS: DILAUDID IV PRN ×7 (00:19→23:26)
[2019-05-25] MEDS: NACL 0.9% 1000 ML 1,000 ML IV SCH ×3 (00:23→17:13)
[2019-05-25] MEDS: BENADRYL IV PRN ×4 (04:50→23:26)
[2019-05-25 06:38] LABS: Hematocrit 29.9 % (30.3-42.9); Hemoglobin 9.7 gm/dl (10.1-14.3); Mean Corpuscular HGB Conc 32 % (30-34); Mean Corpuscular Volume 91 fl (79-97); Platelet Count 429 K/mm3 (140-440); Red Blood Count 3.31 M/mm3 (3.65-5.03); Red Cell Distribution Width 19.2 % (13.2-15.2)
[2019-05-25 08:34] LABS: Basophils # (Auto) 0.2 K/mm3 (0.0-0.1); Basophils % (Auto) 1.2 % (0.0-1.8); Eosinophils # (Auto) 1.9 K/mm3 (0.0-0.4); Eosinophils % (Auto) 11.9 % (0.0-4.3); Lymphocytes # (Auto) 3.6 K/mm3 (1.2-5.4); Lymphocytes % (Auto) 22.3 % (13.4-35.0); Monocytes # (Auto) 1.1 K/mm3 (0.0-0.8)
[2019-05-25] MEDS: ZESTRIL PO SCH (09:33)
[2019-05-25] MEDS: NORVASC PO SCH (09:33)
[2019-05-25] MEDS: SODIUM CHLORIDE FLUSH SYRINGE 10 ML IV SCH ×3 (09:34→23:28)
[2019-05-25] MEDS: PEPCID PO SCH ×2 (09:34→23:28)
[2019-05-25] MEDS: FOLVITE PO SCH (09:34)
[2019-05-25] MEDS: DOLOPHINE PO SCH ×2 (09:34→23:27)
[2019-05-25] MEDS: CATAPRES PO SCH ×2 (09:35→23:27)
[2019-05-25] MEDS: HYDREA PO SCH (09:36)
[2019-05-25 09:52] LABS: Band Neutrophils # (Manual) 0.2 K/mm3; Total Cells Counted 100
[2019-05-25 09:54] LABS: Giant Platelets Few; Platelet Estimate Consistent w Auto; Sickle Cells 2+; Target Cells 2+
--- NOTE | 2019-05-25 14:08 | Progress Note ---
Assessment and Plan Assessment and plan: Patient is a 33 yo man with a history of hypertension, hemolytic anemia, chronic pain syndrome, pneumonia and sickle cell anemia who presented with pain crisis Sickle cell vaso-occlusive crisis: pain control Acute on chronic anemia, below baseline: transfuse 1 unit of PRBC, consult Heme/Onc SIRS w/o organ dysfunction Mild malnutrition: dietary supplement Chronic pain syndrome: will review [employer] Aware prior to discharge Morbid Obesity, bmi 47.6: educate History Interval history: Patient was seen and examined. Follow-up on current diagnosis of SS pain crisis. No overnight events reported to me. Patient denies any chest pain, shortness breath, nausea/vomiting or severe headaches. Imaging, nursing note, chart, labs and old chart reviewed. Discussed with patient. Hospitalist Physical - Physical exam Narrative exam: Gen: Morbid obese bmi 47.6, NAD, Awake, Alert, Orientated HEENT: NCAT, EOMI, PERRL, OP Clear Neck: supple, no adenopathy, no thyromegaly, no JVD CVS/Heart: RRR, normal S1S2, pulses present bilaterally Chest/Lungs: CTA B, Symmetrical chest expansion, good air entry bilaterally GI/Abdomen: soft, NTND, good bowel sounds, no guarding or rebound /Bladder: no suprapubic tenderness, no CVA or paraspinal tenderness Extermity/Skin: no c/c/e, no obvious rash MSK: FROM x 4 Neuro: CN 2-12 grossly intact, no new focal deficits Psych: calm - Constitutional Vitals: Temp Pulse Resp BP Pulse Ox 98.5 F 81 20 139/69 95 05/25/19 11:25 05/25/19 11:25 05/25/19 11:25 05/25/19 11:25 05/25/19 11:25 General appearance: Absent: mild distress Results - Labs CBC & Chem 7: 05/25/19 05:38 05/24/19 06:00 Labs: Laboratory Last Values WBC 15.9 K/mm3 (4.5-11.0) H 05/25/19 05:38 RBC 3.31 M/mm3 (3.65-5.03) L 05/25/19 05:38 Hgb 9.7 gm/dl (10.1-14.3) L D 05/25/19 05:38 Hct 29.9 % (30.3-42.9) L D 05/25/19 05:38 MCV 91 fl (79-97) 05/25/19 05:38 MCH 29 pg (28-32) 05/25/19 05:38 MCHC 32 % (30-34) 05/25/19 05:38 RDW 19.2 % (13.2-15.2) H 05/25/19 05:38 Plt Count 429 K/mm3 (140-440) 05/25/19 05:38 Lymph % (Auto) 22.3 % (13.4-35.0) 05/25/19 05:38 [place] % (Auto) 7.0 % (0.0-7.3) 05/25/19 05:38 Eos % (Auto) 11.9 % (0.0-4.3) H 05/25/19 05:38 Baso % (Auto) 1.2 % (0.0-1.8) 05/25/19 05:38 Lymph # 3.6 K/mm3 (1.2-5.4) 05/25/19 05:38 Roosevelt # 1.1 K/mm3 (0.0-0.8) H 05/25/19 05:38 Eos # 1.9 K/mm3 (0.0-0.4) H 05/25/19 05:38 Baso # 0.2 K/mm3 (0.0-0.1) H 05/25/19 05:38 Add Manual Diff Complete 05/25/19 05:38 Total Counted 100 05/25/19 05:38 Seg Neutrophils % 57.6 % (40.0-70.0) 05/25/19 05:38 Seg Neuts % (Manual) 61.0 % (40.0-70.0) 05/25/19 05:38 1.0 % 05/25/19 05:38 17.0 % (13.4-35.0) 05/25/19 05:38 Reactive Lymphs % (Man) 1.0 % 05/25/19 05:38 5.0 % (0.0-7.3) 05/25/19 05:38 14.0 % (0.0-4.3) H 05/25/19 05:38 1.0 % (0.0-1.8) 05/25/19 05:38 0 % 05/25/19 05:38 0 % 05/25/19 05:38 0 % 05/25/19 05:38 0 % 05/25/19 05:38 Nucleated RBC % 5.0 % (0.0-0.9) H 05/25/19 05:38 Seg Neutrophils # 9.2 K/mm3 (1.8-7.7) H 05/25/19 05:38 Seg Neutrophils # Man 9.7 K/mm3 (1.8-7.7) H 05/25/19 05:38 Band Neutrophils # 0.2 K/mm3 05/25/19 05:38 2.7 K/mm3 (1.2-5.4) 05/25/19 05:38 Abs React Lymphs (Man) 0.2 K/mm3 05/25/19 05:38 0.8 K/mm3 (0.0-0.8) 05/25/19 05:38 2.2 K/mm3 (0.0-0.4) H 05/25/19 05:38 0.2 K/mm3 (0.0-0.1) H 05/25/19 05:38 0.0 K/mm3 05/25/19 05:38 0.0 K/mm3 05/25/19 05:38 0.0 K/mm3 05/25/19 05:38 Blast Cells # 0.0 K/mm3 05/25/19 05:38 WBC Morphology Not Reportable 05/25/19 05:38 Hypersegmented Neuts Not Reportable 05/25/19 05:38 Hyposegmented Neuts Not Reportable 05/25/19 05:38 Hypogranular Neuts Not Reportable 05/25/19 05:38 Not Reportable 05/25/19 05:38 Not Reportable 05/25/19 05:38 Not Reportable 05/25/19 05:38 Not Reportable 05/25/19 05:38 Not Reportable 05/25/19 05:38 Not Reportable 05/25/19 05:38 Consistent w auto 05/25/19 05:38 Not Reportable 05/25/19 05:38 Plt Clumps, EDTA Not Reportable 05/25/19 05:38 Not Reportable 05/25/19 05:38 Few 05/25/19 05:38 Not Reportable 05/25/19 05:38 Plt Morphology Comment Not Reportable 05/25/19 05:38 RBC Morphology Not Reportable 05/25/19 05:38 Dimorphic RBCs Not Reportable 05/25/19 05:38 Few 05/25/19 05:38 Not Reportable 05/25/19 05:38 Not Reportable 05/25/19 05:38 Not Reportable 05/25/19 05:38 Not Reportable 05/25/19 05:38 Not Reportable 05/25/19 05:38 Not Reportable 05/25/19 05:38 Not Reportable 05/25/19 05:38 2+ 05/25/19 05:38 2+ 05/25/19 05:38 Not Reportable 05/25/19 05:38 Not Reportable 05/25/19 05:38 Not Reportable 05/25/19 05:38 Not Reportable 05/25/19 05:38 Not Reportable 05/25/19 05:38 Not Reportable 05/25/19 05:38 Not Reportable 05/25/19 05:38 Not Reportable 05/25/19 05:38 Not Reportable 05/25/19 05:38 Acanthocytes (Spur) Not Reportable 05/25/19 05:38 Rouleaux Not Reportable 05/25/19 05:38 Not Reportable 05/25/19 05:38 Not Reportable 05/25/19 05:38 Not Reportable 05/25/19 05:38 Percent Retic 13.55 % (0.78-2.58) H 05/25/19 05:38 Not Reportable 05/25/19 05:38 Hem Pathologist Commnt No 05/25/19 05:38 Sodium 137 mmol/L (137-145) 05/24/19 06:00 Potassium 4.6 mmol/L (3.6-5.0) 05/24/19 06:00 Chloride 104.8 mmol/L (98-107) 05/24/19 06:00 Carbon Dioxide 25 mmol/L (22-30) 05/24/19 06:00 12 mmol/L 05/24/19 06:00 BUN 15 mg/dL (7-17) 05/24/19 06:00 0.8 mg/dL (0.7-1.2) 05/24/19 06:00 Estimated GFR > 60 ml/min 05/24/19 06:00 19 % 05/24/19 06:00 Glucose 91 mg/dL (65-100) 05/24/19 06:00 5.3 % (4-6) 05/23/19 11:39 Calcium 8.5 mg/dL (8.4-10.2) 05/24/19 06:00 1.40 mg/dL (0.1-1.2) H 05/24/19 06:00 0.4 mg/dL (0-0.2) H 05/23/19 11:39 1.2 mg/dL 05/23/19 11:39 AST 45 units/L (5-40) H 05/24/19 06:00 ALT 45 units/L (7-56) 05/24/19 06:00 129 units/L (35-129) 05/24/19 06:00 6.6 g/dL (6.3-8.2) 05/24/19 06:00 3.3 g/dL (3.9-5) L 05/24/19 06:00 1.0 % 05/24/19 06:00 HCG, Qual Negative (Negative) 05/23/19 11:39 Blood Type A POSITIVE 05/23/19 13:29 Antibody Screen Negative 05/23/19 13:29 Crossmatch See Detail 05/23/19 13:29 Active Medications - Current Medications Current Medications: Generic Name Dose Route Start Last Admin Trade Name Freq PRN Reason Stop Dose Admin Acetaminophen 650 mg 05/23/19 19:04 05/24/19 18:04 Tylenol PO 650 mg Q4H PRN Administration Pain MILD(1-3)/Fever >100.5/VILLA Amlodipine Besylate 10 mg 05/23/19 17:00 05/25/19 09:33 Norvasc PO 10 mg QDAY CARIE Administration Clonidine HCl 0.2 mg 05/23/19 22:00 05/25/19 09:35 Catapres PO 0.2 mg BID CARIE Administration Diphenhydramine HCl 25 mg 05/23/19 13:48 05/25/19 11:06 Benadryl IV 25 mg Q6H PRN Administration Itching Famotidine 20 mg 05/23/19 22:00 07/21/19 09:34 Pepcid PO 20 mg BID CARIE Administration Folic Acid 1 mg 05/23/19 17:00 05/25/19 09:34 Folvite PO 1 mg DAILY CARIE Administration Hydromorphone HCl 2 mg 05/23/19 16:33 05/25/19 11:04 Dilaudid IV 2 mg Q3H PRN Administration Pain , Severe (7-10) Hydroxyurea 500 mg 05/23/19 17:00 05/25/19 09:36 Hydrea PO 500 mg DAILY CARIE Administration Sodium Chloride 1,000 mls @ 125 mls/hr 05/23/19 17:00 05/25/19 10:38 Nacl 0.9% 1000 Ml IV 125 mls/hr DIRECT CARIE Administration Ceftriaxone Sodium 2 gm in 100 mls @ 200 mls/hr 05/23/19 20:00 05/25/19 00:18 Rocephin/Ns 2 Gm/100 Ml IV 200 mls/hr Q24H CARIE Administration Protocol Lisinopril 40 mg 05/23/19 17:00 05/25/19 09:33 Zestril PO 40 mg QDAY CARIE Administration Methadone HCl 10 mg 05/23/19 22:00 05/25/19 09:34 Dolophine PO 10 mg BID CARIE Administration Metoclopramide HCl 10 mg 05/23/19 16:33 Reglan IV Q6H PRN Nausea And Vomiting Ondansetron HCl 4 mg 05/23/19 19:04 Zofran IV Q8H PRN Nausea And Vomiting Oxycodone/Acetaminophen 2 tab 05/23/19 17:15 Percocet 5/325 PO Q4H PRN Pain, Moderate (4-6) Sodium Chloride 10 ml 05/23/19 22:00 05/25/19 09:34 Sodium Chloride Flush Syringe 10 Ml IV 10 ml BID CARIE Administration Sodium Chloride 10 ml 05/23/19 16:33 Sodium Chloride Flush Syringe 10 Ml IV PRN PRN LINE FLUSH Sodium Chloride 10 ml 05/23/19 22:00 05/25/19 09:37 Sodium Chloride Flush Syringe 10 Ml IV 10 ml BID CARIE Administration Sodium Chloride 10 ml 05/23/19 19:04 Sodium Chloride Flush Syringe 10 Ml IV PRN PRN LINE FLUSH Zolpidem Tartrate 5 mg 05/23/19 19:04 Ambien PO QHS PRN Insomnia
--- NOTE | 2019-05-25 14:28 | Progress Note ---
Assessment and Plan - Patient Problems (1) Sickle cell anemia with crisis Current Visit: Yes Status: Acute Plan to address problem: replacement transfusion. (2) Back pain Current Visit: No Status: Acute Qualifiers: Back pain location: low back pain Chronicity: acute Back pain laterality: bilateral Sciatica presence: without sciatica Qualified Code(s): M54.5 - Low back pain Plan to address problem: Pain control as you are already doing. (3) Dehydration Current Visit: Yes Status: Acute Plan to address problem: Hydration Subjective Date of service: 05/25/19 Interval history: Patient seen, resting in bed, labs reviewed, improved, but retic increased, Abn LFTS.will check iron level. Objective - Constitutional Vitals: Vital Signs - 12hr 05/25/19 05/25/19 04:59 11:25 Temperature 97.8 F 98.5 F Pulse Rate 78 81 Respiratory 20 20 Rate Blood Pressure 143/67 139/69 O2 Sat by Pulse 97 95 Oximetry General appearance: Present: mild distress, well-nourished - EENT Eyes: PERRL, EOM intact ENT: hearing intact, clear oral mucosa Ears: bilateral: normal - Neck Neck: supple, normal ROM - Respiratory Respiratory effort: normal Respiratory: bilateral: CTA - Breasts Breasts: deferred - Cardiovascular Rhythm: regular Heart Sounds: Present: S1 & S2. Absent: gallop, rub Extremities: pulses intact, No edema, normal color, Full ROM - Gastrointestinal General gastrointestinal: Present: soft, non-tender, non-distended, normal bowel sounds Rectal Exam: deferred - Genitourinary Female genitourinary: deferred - Integumentary Integumentary: clear, warm, dry - Musculoskeletal Musculoskeletal: 1, strength equal bilaterally - Neurologic Neurologic: moves all extremities - Psychiatric Psychiatric: memory intact, appropriate mood/affect, intact judgment & insight - Labs CBC & Chem 7: 05/25/19 05:38 05/24/19 06:00 Labs: Abnormal lab results 05/23/19 05/25/19 Range/Units 13:29 05:38 WBC 15.9 H (4.5-11.0) K/mm3 RBC 3.31 L (3.65-5.03) M/mm3 Hgb 9.7 L D (10.1-14.3) gm/dl Hct 29.9 L D (30.3-42.9) % RDW 19.2 H (13.2-15.2) % Eos % (Auto) 11.9 H (0.0-4.3) % [place] # 1.1 H (0.0-0.8) K/mm3 Eos # 1.9 H (0.0-0.4) K/mm3 Baso # 0.2 H (0.0-0.1) K/mm3 Eosinophils % (Manual) 14.0 H (0.0-4.3) % Nucleated RBC % 5.0 H (0.0-0.9) % Seg Neutrophils # 9.2 H (1.8-7.7) K/mm3 Seg Neutrophils # Man 9.7 H (1.8-7.7) K/mm3 Eosinophils # (Manual) 2.2 H (0.0-0.4) K/mm3 Basophils # (Manual) 0.2 H (0.0-0.1) K/mm3 Percent Retic 13.55 H (0.78-2.58) % Crossmatch See Detail Medications & Allergies - Medications Allergies/Adverse Reactions: Allergies morphine Allergy (Verified 05/23/19 10:18) Shortness of Breath Home Medications: Home Medications Medication Instructions Recorded Confirmed Last Taken Type Folic Acid [Folvite] 1 mg PO DAILY #30 tablet 07/29/16 05/23/19 Unknown Rx Lisinopril [Zestril TAB] 40 mg PO QDAY #30 tablet 12/02/16 05/23/19 05/23/19 Rx amLODIPine [Norvasc] 10 mg PO QDAY #30 tablet 12/02/16 05/23/19 05/23/19 Rx Hydroxyurea [Hydrea] 500 mg PO DAILY 03/19/19 05/23/19 05/23/19 History Methadone [Dolophine] 10 mg PO BID 03/19/19 05/23/19 05/23/19 History cloNIDine [Catapres] 0.2 mg PO BID 03/19/19 05/23/19 Unknown History Oxycodone HCl/Acetaminophen 1 each PO Q4-6H PRN 04/22/19 05/23/19 05/23/19 History [Percocet 10/325 mg] Active Medications: Generic Name Dose Route Start Last Admin Trade Name Freq PRN Reason Stop Dose Admin Acetaminophen 650 mg 05/23/19 19:04 05/24/19 18:04 Tylenol PO 650 mg Q4H PRN Administration Pain MILD(1-3)/Fever >100.5/VILLA Amlodipine Besylate 10 mg 05/23/19 17:00 05/25/19 09:33 Norvasc PO 10 mg QDAY CARIE Administration Clonidine HCl 0.2 mg 05/23/19 22:00 05/25/19 09:35 Catapres PO 0.2 mg BID CARIE Administration Diphenhydramine HCl 25 mg 05/23/19 13:48 05/25/19 11:06 Benadryl IV 25 mg Q6H PRN Administration Itching Famotidine 20 mg 05/23/19 22:00 05/25/19 09:34 Pepcid PO 20 mg BID CARIE Administration Folic Acid 1 mg 05/23/19 17:00 05/25/19 09:34 Folvite PO 1 mg DAILY CARIE Administration Hydromorphone HCl 2 mg 05/23/19 16:33 05/25/19 11:04 Dilaudid IV 2 mg Q3H PRN Administration Pain , Severe (7-10) Hydroxyurea 500 mg 05/23/19 17:00 05/25/19 09:36 Hydrea PO 500 mg DAILY CARIE Administration Sodium Chloride 1,000 mls @ 125 mls/hr 05/23/19 17:00 05/25/19 10:38 Nacl 0.9% 1000 Ml IV 125 mls/hr DIRECT CARIE Administration Ceftriaxone Sodium 2 gm in 100 mls @ 200 mls/hr 05/23/19 20:00 05/25/19 00:18 Rocephin/Ns 2 Gm/100 Ml IV 200 mls/hr Q24H CARIE Administration Protocol Lisinopril 40 mg 05/23/19 17:00 05/25/19 09:33 Zestril PO 40 mg QDAY CARIE Administration Methadone HCl 10 mg 05/23/19 22:00 05/25/19 09:34 Dolophine PO 10 mg BID CARIE Administration Metoclopramide HCl 10 mg 05/23/19 16:33 Reglan IV Q6H PRN Nausea And Vomiting Ondansetron HCl 4 mg 05/23/19 19:04 Zofran IV Q8H PRN Nausea And Vomiting Oxycodone/Acetaminophen 2 tab 07/19/19 17:15 Percocet 5/325 PO Q4H PRN Pain, Moderate (4-6) Sodium Chloride 10 ml 05/23/19 22:00 05/25/19 09:34 Sodium Chloride Flush Syringe 10 Ml IV 10 ml BID CARIE Administration Sodium Chloride 10 ml 05/23/19 16:33 Sodium Chloride Flush Syringe 10 Ml IV PRN PRN LINE FLUSH Sodium Chloride 10 ml 05/23/19 22:00 05/25/19 09:37 Sodium Chloride Flush Syringe 10 Ml IV 10 ml BID CARIE Administration Sodium Chloride 10 ml 05/23/19 19:04 Sodium Chloride Flush Syringe 10 Ml IV PRN PRN LINE FLUSH Zolpidem Tartrate 5 mg 05/23/19 19:04 Ambien PO QHS PRN Insomnia
[2019-05-25 15:58] LABS: Iron 133 ug/dL (37-170); Total Iron Binding Capacity 198 mcg/dL (250-450)
[2019-05-26] MEDS: SODIUM CHLORIDE FLUSH SYRINGE 10 ML IV SCH ×3 (00:06→11:10)
[2019-05-26] MEDS: NACL 0.9% 1000 ML 1,000 ML IV SCH ×3 (00:07→08:55)
[2019-05-26] MEDS: DILAUDID IV PRN ×5 (02:59→15:18)
[2019-05-26] MEDS: BENADRYL IV PRN ×2 (05:57→12:11)
[2019-05-26] MEDS: PEPCID PO SCH (11:02)
[2019-05-26] MEDS: ZESTRIL PO SCH (11:02)
[2019-05-26] MEDS: NORVASC PO SCH (11:03)
[2019-05-26] MEDS: DOLOPHINE PO SCH (11:03)
[2019-05-26] MEDS: CATAPRES PO SCH (11:04)
[2019-05-26 11:05] VITALS: BP 152/88
[2019-05-26] MEDS: FOLVITE PO SCH (11:05)
[2019-05-26] MEDS: HYDREA PO SCH (11:09)
--- NOTE | 2019-05-26 12:24 | Discharge Summary ---
Providers - Providers Date of Admission: 05/23/19 13:20 Date of discharge: 05/26/19 Attending physician: MAGY ZIMMERMAN 05/24/19 08:11 Consult to Physician [CONS] Routine Comment: Consulting Provider: SEMAJ FLYNN Physician Instructions: Reason For Exam: ss anemia with crisis and hemoglobin 6.3 Primary care physician: PATTIE KEANE Hospitalization Condition: Stable Hospital course: Patient is a 33 yo man with a history of hypertension, hemolytic anemia, chronic pain syndrome, pneumonia and sickle cell anemia who presented with pain crisis Sickle cell vaso-occlusive crisis: pain control Acute on chronic anemia, below baseline: transfuse 1 unit of PRBC, consult Heme/Onc SIRS w/o organ dysfunction Mild malnutrition: dietary supplement Chronic pain syndrome: see below Morbid Obesity, bmi 47.6: 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 raysa seaman 05/10/19 percocet 5/325 quantity of [address] jacqueline rivera Disposition: DC-01 TO HOME OR SELFCARE Time spent for discharge: 35 minutes Core Measure Documentation - Palliative Care Palliative Care/ Comfort Measures: Not Applicable - Core Measures Any of the following diagnoses?: none - VTE Discharge Requirements Deep Vein Thrombosis/Pulmonary Embolism Present on Admission: No Has pt received <5 days of overlap therapy or INR<2.0: No Anticoagulant overlap therapy prescribed at discharge: No Contraindication No Overlap Therapy order at DC: Not Indicated Exam - Physical Exam Narrative exam: Gen: Morbid obese bmi 47.6, NAD, Awake, Alert, Orientated HEENT: NCAT, EOMI, PERRL, OP Clear Neck: supple, no adenopathy, no thyromegaly, no JVD CVS/Heart: RRR, normal S1S2, pulses present bilaterally Chest/Lungs: CTA B, Symmetrical chest expansion, good air entry bilaterally GI/Abdomen: soft, NTND, good bowel sounds, no guarding or rebound /Bladder: no suprapubic tenderness, no CVA or paraspinal tenderness Extermity/Skin: no c/c/e, no obvious rash MSK: FROM x 4 Neuro: CN 2-12 grossly intact, no new focal deficits Psych: calm - Constitutional Vitals: Temp Pulse Resp BP Pulse Ox 98.4 F 77 24 152/88 94 05/26/19 05:21 05/26/19 11:04 05/26/19 05:21 05/26/19 11:04 05/26/19 05:21 Plan Activity: other (no strenous activity unless cleared by PCP) Diet: regular Additional Instructions: stop getting Narcotics from more than one provider. Follow up with: PATTIE KEANE MD [Primary Care Provider] - 3-5 Days LYNDA DUGAN MD [Staff Physician] - 7 Days Prescriptions: Oxycodone HCl/Acetaminophen [Percocet 10/325 mg] 1 each PO Q12H PRN #7 tablet PRN Reason: Pain , Severe (7-10)
[2019-05-26] MEDS ORDERED: FLUSH HEPARIN IV ONE ×2 (13:00→15:35)
[2019-05-26] MEDS ORDERED: TRIPLE ANTIBIOTIC TP ONE ×2 (13:01→15:34)
== END 2019-05-26 16:24 | disposition home or self-care (01) ==
LOC: ED 10:17 → 3A 13:20
PROVIDERS: ADMIT Internal Medicine; ATTEND Internal Medicine
DX: D57.00 Hb-SS disease with crisis, unspecified (principal); R65.10 Systemic inflammatory response syndrome (SIRS) of non-infectious origin without acute organ dysfunction; I10 Essential (primary) hypertension; E86.0 Dehydration; M19.90 Unspecified osteoarthritis, unspecified site; J45.909 Unspecified asthma, uncomplicated; Z90.49 Acquired absence of other specified parts of digestive tract; Z79.899 Other long term (current) drug therapy
CPT/HCPCS: 36415; 36430; 80048; 80053; 80076; 82728; 83036; 83550; 84703; 85007; 85025; 85045; 85660; 86850; 86900; 86901; 86922; 96365; 96366; 96375; 96376; 99291; G0378; J0696; J1170; J1200; J1642; J1885; J2405; J7030; J7040; P9016; A6250; J2060

== ENCOUNTER 2019-05-28 19:58 | Emergency (ER) | payer MEDICAID ==
--- NOTE | 2019-05-28 21:33 | Emergency Department Report ---
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 Torres This is a 33-year-old female. I have evaluated this patient in the past. Past medical history includes sickle cell disease, and current left-sided port. Patient admitted to this hospital within the past week for sickle cell anemia with crisis and hemoglobin of 6.3. Also has a history of hypertension, hemolyt ic anemia and chronic pain syndrome. Patient presents to the ER today with a complaint of recurrent sickle cell pain. Her pain is in her bilateral legs, from her knees distally, and paraspinal region. Pain is throbbing and sharp, increases with palpation and decreases with rest. It doesn't move anywhere, with the exception the bilateral lower extremities, with the pain radiates distally. Patient states she is currently on her menstruation, but occasionally her sickle cell pain is exacerbated by her menstruation. The patient makes no complaint of of headache, neck pain, chest pain, upper abdominal pain, shortness of breath, urinary symptoms. Her pain typically improves with hydromorphone. -: Gradual, hour(s) Location: back, left, right, lower extremity Radiation: extremity Severity scale (0 -10): 10 Quality: aching Consistency: constant Improves with: medication, rest Worsens with: movement - Related Data Home Medications Medication Instructions Recorded Confirmed Last Taken Hydroxyurea [Hydrea] 500 mg PO DAILY 03/19/19 05/23/19 05/23/19 Methadone [Dolophine] 10 mg PO BID 03/19/19 05/23/19 05/23/19 cloNIDine [Catapres] 0.2 mg PO BID 03/19/19 05/23/19 Unknown Previous Rx's Medication Instructions Recorded Last Taken Type Folic Acid [Folvite] 1 mg PO DAILY #30 tablet 07/29/16 Unknown Rx Lisinopril [Zestril TAB] 40 mg PO QDAY #30 tablet 12/02/16 05/23/19 Rx amLODIPine [Norvasc] 10 mg PO QDAY #30 tablet 12/02/16 05/23/19 Rx Oxycodone HCl/Acetaminophen 1 each PO Q12H PRN #7 tablet 05/26/19 Unknown Rx [Percocet 10/325 mg] Allergies Allergy/AdvReac Type Severity Reaction Status Date / Time morphine Allergy Shortness Verified 05/23/19 10:18 of Breath ED Review of Systems ROS: Stated complaint: SICKLE CELL CRISIS Other details as noted in HPI Constitutional: denies: fever Eyes: denies: eye discharge ENT: denies: epistaxis Respiratory: denies: cough Cardiovascular: denies: chest pain Gastrointestinal: denies: nausea, vomiting Genitourinary: denies: urgency, dysuria Musculoskeletal: back pain, arthralgia, myalgia Skin: denies: lesions Neurological: denies: weakness Hematological/Lymphatic: denies: easy bleeding ED Past Medical Hx - Past Medical History Previous Medical History?: Yes Hx Hypertension: Yes Hx Heart Attack/AMI: No Hx Congestive Heart Failure: No Hx Diabetes: No Hx Sickle Cell Disease: Yes Hx Arthritis: Yes Hx Asthma: Yes Hx COPD: No Hx HIV: No Additional medical history: ANEMIA, multiple port infections - Surgical History Past Surgical History?: Yes Hx Cholecystectomy: Yes Additional Surgical History: , port removed June 2014. PICC line left upper arm (11/19/2014). . - Social History Smoking Status: Never Smoker Substance Use Type: None - Medications Home Medications: Home Medications Medication Instructions Recorded Confirmed Last Taken Type Folic Acid [Folvite] 1 mg PO DAILY #30 tablet 07/29/16 05/23/19 Unknown Rx Lisinopril [Zestril TAB] 40 mg PO QDAY #30 tablet 12/02/16 05/23/19 05/23/19 Rx amLODIPine [Norvasc] 10 mg PO QDAY #30 tablet 12/02/16 05/23/19 05/23/19 Rx Hydroxyurea [Hydrea] 500 mg PO DAILY 03/19/19 05/23/19 05/23/19 History Methadone [Dolophine] 10 mg PO BID 03/19/19 05/23/19 05/23/19 History cloNIDine [Catapres] 0.2 mg PO BID 03/19/19 05/23/19 Unknown History Oxycodone HCl/Acetaminophen 1 each PO Q12H PRN #7 tablet 05/26/19 Unknown Rx [Percocet 10/325 mg] ED Physical Exam - General Limitations: No Limitations General appearance: alert, in no apparent distress, obese - Head Head exam: Present: atraumatic, normocephalic - Eye Eye exam: Present: normal appearance, EOMI, other (there is no scleral icterus). Absent: nystagmus - ENT ENT exam: Present: normal exam, normal orophraynx, mucous membranes moist, normal external ear exam - Neck Neck exam: Present: normal inspection, full ROM. Absent: tenderness, meningismus - Respiratory Respiratory exam: Present: normal lung sounds bilaterally. Absent: respiratory distress - Cardiovascular Cardiovascular Exam: Present: regular rate, normal rhythm, normal heart sounds. Absent: bradycardia, tachycardia, irregular rhythm, systolic murmur, diastolic murmur, rubs, gallop - GI/Abdominal GI/Abdominal exam: Present: soft. Absent: distended, tenderness, guarding, rebound, rigid, pulsatile mass - Extremities Exam Extremities exam: Present: normal inspection, full ROM, other (2+ pulses noted in the bilateral upper, lower extremities. Compartments soft. No long bony tenderness. The pelvis is stable.). Absent: calf tenderness - Back Exam Back exam: Present: normal inspection, full ROM. Absent: tenderness, CVA tenderness (R), CVA tenderness (L), paraspinal tenderness, vertebral tenderness - Neurological Exam Neurological exam: Present: alert, oriented X3, other (Extraocular movements intact. Tongue midline. No facial droop. Facial sensation intact to light touch in the V1, V2, V3 distribution bilaterally. 5 and 5 strength in 4 extremities.. Sensation is intact to light touch in 4 extremities.). Absent: motor sensory deficit - Psychiatric Psychiatric exam: Present: normal affect, normal mood - Skin Skin exam: Present: warm, dry, intact, normal color. Absent: rash ED Course Vital Signs 05/28/19 05/28/19 05/28/19 20:22 21:05 21:30 Temperature 98.1 F 98.7 F Pulse Rate 78 84 84 Respiratory 16 22 25 H Rate Blood Pressure 181/99 161/85 Blood Pressure 169/91 [Left] O2 Sat by Pulse 96 98 98 Oximetry 05/28/19 05/28/19 05/28/19 22:00 23:00 23:30 Temperature Pulse Rate 76 86 Respiratory 22 18 19 Rate Blood Pressure 173/86 171/88 Blood Pressure [Left] O2 Sat by Pulse 98 98 Oximetry 05/29/19 05/29/19 05/29/19 00:00 00:10 00:40 Temperature Pulse Rate 81 79 Respiratory 24 16 22 Rate Blood Pressure 163/77 Blood Pressure 149/73 [Left] O2 Sat by Pulse 97 96 Oximetry - Reevaluation(s) Reevaluation #1: 05/28/19 21:33 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 Filled ID Written Drug QTY Days Prescriber Rx # Pharmacy * Refills Daily Dose Pymt Type [employer] 05/17/2019 3 05/15/2019 OXYCODONE-ACETAMINOPHEN 10-325 18.0 3 [facility] [id number] NIKOLSKI ([id number]) 0 90.0 [facility] [place] 05/11/2019 3 05/10/2019 OXYCODONE-ACETAMINOPHEN 5-325 5.0 2 [facility] [id number] MARIBEL ([id number]) 0 18.75 [facility] [place] 04/26/2019 3 04/26/2019 OXYCODONE-ACETAMINOPHEN 10-325 18.0 5 [facility] [id number] NIKOLSKI ([id number]) 0 54.0 [facility] [place] 04/07/2019 3 04/07/2019 OXYCODONE-ACETAMINOPHEN 10-325 90.0 11 DO COL [id number] JOSEFINA' ([id number]) 0 122.73 [facility] [place] 03/24/2019 3 03/24/2019 OXYCODONE-ACETAMINOPHEN 10-325 90.0 8 DO COL [id number] NIKOLSKI ([id number]) 0 168.75 [facility] [place] 03/12/2019 3 02/24/2019 OXYCODONE-ACETAMINOPHEN 10-325 90.0 8 DO COL [id number] NIKOLSKI ([id number]) 0 168.75 [facility] [place] Reevaluation #2: 05/28/19 23:47 Differential diagnosis, including not limited to: Dysfunctional uterine bleeding, , sickle cell crisis, narcotic dependence Assessment and plan: 33-year-old female with endorsed complaints of reported sickle cell crisis. The patient is afebrile with reassuring vital signs. Elev ated blood pressure is reviewed and appreciated. This appears to be chronic. While I did not care for the patient during her previous ER stay, I was physically present, and walked by her room multiple times, where she appeared to be quite comfortable. In addition, prior to me walking into the room today, the patient is noted to be watching TV and playing on a cellular phone, does not appear to be in any acute distress. She was medically optimized during a recent hospitalization. I do not anticipate need for recurrent hospitalization. However, we will treat her endorsed complaints of pain. Reevaluation #3: 05/29/19 00:23 Vital signs unremarkable. Objective laboratory studies unremarkable. Patient has been seen multiple times at this department within the past few weeks for sickle cell crisis. She does not be criteria for hospitalization. Nursing team informed him that on reevaluation she is playing on a cellular phone, and in no acute distress. This is consistent with my reevaluation's as well. Reevaluation #4: 05/29/19 00:51 Laboratory studies are unremarkable. Patient appears engrossed with her cellular phone. She was recently discharged with a prescription for oxycodone and acetaminophen by Dr. St during her recent hospitalization. She may be discharged at this time with outpatient follow-up. ED Medical Decision Making - Lab Data Result diagrams: 05/28/19 23:46 Vital Signs 05/28/19 05/28/19 05/28/19 20:22 21:05 23:00 Temperature 98.1 F 98.7 F Pulse Rate 78 84 Respiratory 16 22 18 Rate Blood Pressure 181/99 Blood Pressure 169/91 [Left] O2 Sat by Pulse 96 98 Oximetry Critical care attestation.: If time is entered above; I have spent that time in minutes in the direct care of this critically ill patient, excluding procedure time. ED Disposition Clinical Impression: Sickle cell pain crisis, Dysmenorrhea Disposition: - TO HOME OR SELFCARE Is pt being admited?: No Does the pt Need Aspirin: No Condition: Stable Additional Instructions: Continue current outpatient medications. Follow-up with your primary care doctor or assistant floor covering printer within the next week. Rest, avoid heavy lifting, and avoid strenuous physical activities. Return to the emergency room right away with He, worsened or different symptoms, or symptoms not present on the initial emergency room evaluation. Referrals: FRANK ACOSTA MD [Primary Care Provider] - 3-5 Days SEMAJ FLYNN DO [Staff Physician] - 3-5 Days
[2019-05-28] MEDS ORDERED: DILAUDID IV ONE (21:39)
[2019-05-28] MEDS ORDERED: D5/0.45NS 1,000 ML IV SCH (22:00)
[2019-05-29] MEDS ORDERED: DILAUDID IV ONE ×2 (00:06→01:12)
[2019-05-29 00:07] LABS: Basophils # (Auto) 0.1 K/mm3 (0.0-0.1); Basophils % (Auto) 0.8 % (0.0-1.8); Eosinophils # (Auto) 0.6 K/mm3 (0.0-0.4); Eosinophils % (Auto) 4.4 % (0.0-4.3); Hematocrit 29.2 % (30.3-42.9); Hemoglobin 9.5 gm/dl (10.1-14.3); Lymphocytes # (Auto) 3.2 K/mm3 (1.2-5.4); Lymphocytes % (Auto) 22.3 % (13.4-35.0); Mean Corpuscular HGB Conc 33 % (30-34); Mean Corpuscular Volume 89 fl (79-97); Monocytes # (Auto) 0.9 K/mm3 (0.0-0.8); Monocytes % (Auto) 6.4 % (0.0-7.3); Platelet Count 435 K/mm3 (140-440); Red Blood Count 3.28 M/mm3 (3.65-5.03); Red Cell Distribution Width 19.3 % (13.2-15.2)
[2019-05-29 00:41] VITALS: BP 149/73
== END 2019-05-29 01:35 | disposition home or self-care (01) ==
LOC: ED 19:58
DX: D57.00 Hb-SS disease with crisis, unspecified (principal); N94.6 Dysmenorrhea, unspecified; I10 Essential (primary) hypertension; M19.90 Unspecified osteoarthritis, unspecified site; J45.909 Unspecified asthma, uncomplicated; Z90.49 Acquired absence of other specified parts of digestive tract
CPT/HCPCS: 36415; 84702; 85025; 85045; 96374; 96375; 99283; J1170

== ENCOUNTER 2019-06-02 08:42 | Emergency (ER) | payer MEDICAID ==
[2019-06-02] MEDS ORDERED: DILAUDID IV ONE ×3 (09:09→12:00)
--- NOTE | 2019-06-02 09:10 | Emergency Department Report ---
ED General Adult HPI - General Chief complaint: Sickle Cell Crisis Stated complaint: SICKLE CELL ISSUE Time Seen by Provider: 06/02/19 08:54 Source: patient Mode of arrival: Ambulatory Limitations: No Limitations - History of Present Illness Initial comments: This is a 33-year-old female. I have evaluated this patient in the past. She follows with gambling dealer Dr. Torres. She states that she is going to follow up with him later on this week. The patient presents to the ER today with a complaint of recurrent sickle cell pain. Her pain is in her bilateral paralumbar regions, and bilateral lower extremities. She also notices abdominal cramping. Similar to when I evaluated her on 05/28/2019. She feels like her triggers are the same as previously. She denies headache, neck pain, chest pain, shortness of breath, vomiting, urinary symptoms. Her pain is achy, cramping, throbbing and sharp, and typically decreases with hydromorphone arrest . It increases with palpation. -: Gradual, days(s) Location: back, abdomen, left, right, lower extremity Quality: aching Consistency: other Improves with: other Worsens with: other - Related Data Home Medications Medication Instructions Recorded Confirmed Last Taken Hydroxyurea [Hydrea] 500 mg PO DAILY 03/19/19 05/23/19 05/23/19 Methadone [Dolophine] 10 mg PO BID 03/19/19 05/23/19 05/23/19 cloNIDine [Catapres] 0.2 mg PO BID 03/19/19 05/23/19 Unknown Previous Rx's Medication Instructions Recorded Last Taken Type Folic Acid [Folvite] 1 mg PO DAILY #30 tablet 07/29/16 Unknown Rx Lisinopril [Zestril TAB] 40 mg PO QDAY #30 tablet 12/02/16 05/23/19 Rx amLODIPine [Norvasc] 10 mg PO QDAY #30 tablet 12/02/16 05/23/19 Rx Acetaminophen [Non-Aspirin Extra 500 mg PO Q6HR PRN #30 tablet 06/02/19 Unknown Rx Strength] Ibuprofen [Motrin] 600 mg PO Q8H PRN #30 tablet 06/02/19 Unknown Rx Ondansetron [Zofran Odt] 4 mg PO Q8HR PRN #20 tab.rapdis 06/02/19 Unknown Rx Oxycodone HCl/Acetaminophen 1 each PO Q12H PRN #6 tablet 06/02/19 Unknown Rx [Percocet 10/325 mg] Allergies Allergy/AdvReac Type Severity Reaction Status Date / Time morphine Allergy Shortness Verified 06/02/19 08:43 of Breath ED Review of Systems ROS: Stated complaint: SICKLE CELL ISSUE Other details as noted in HPI Constitutional: malaise. denies: fever ENT: denies: epistaxis Respiratory: denies: cough Cardiovascular: denies: chest pain Gastrointestinal: nausea. denies: vomiting Genitourinary: denies: dysuria Musculoskeletal: back pain, arthralgia, myalgia Skin: denies: lesions Neurological: weakness Psychiatric: anxiety ED Past Medical Hx - Past Medical History Hx Hypertension: Yes Hx Heart Attack/AMI: No Hx Congestive Heart Failure: No Hx Diabetes: No Hx Sickle Cell Disease: Yes Hx Arthritis: Yes Hx Asthma: Yes Hx COPD: No Hx HIV: No Additional medical history: ANEMIA, multiple port infections - Surgical History Hx Cholecystectomy: Yes Additional Surgical History: , port removed June 2014. PICC line left upper arm (11/19/2014). . - Social History Smoking Status: Never Smoker Substance Use Type: None - Medications Home Medications: Home Medications Medication Instructions Recorded Confirmed Last Taken Type Folic Acid [Folvite] 1 mg PO DAILY #30 tablet 07/29/16 05/23/19 Unknown Rx Lisinopril [Zestril TAB] 40 mg PO QDAY #30 tablet 12/02/16 05/23/19 05/23/19 Rx amLODIPine [Norvasc] 10 mg PO QDAY #30 tablet 12/02/16 05/23/19 05/23/19 Rx Hydroxyurea [Hydrea] 500 mg PO DAILY 03/19/19 05/23/19 05/23/19 History Methadone [Dolophine] 10 mg PO BID 03/19/19 05/23/19 05/23/19 History cloNIDine [Catapres] 0.2 mg PO BID 03/19/19 05/23/19 Unknown History Acetaminophen [Non-Aspirin Extra 500 mg PO Q6HR PRN #30 tablet 06/02/19 Unknown Rx Strength] Ibuprofen [Motrin] 600 mg PO Q8H PRN #30 tablet 06/02/19 Unknown Rx Ondansetron [Zofran Odt] 4 mg PO Q8HR PRN #20 tab.rapdis 06/02/19 Unknown Rx Oxycodone HCl/Acetaminophen 1 each PO Q12H PRN #6 tablet 06/02/19 Unknown Rx [Percocet 10/325 mg] ED Physical Exam - General Limitations: No Limitations General appearance: alert, anxious, obese - Head Head exam: Present: atraumatic, normocephalic - Eye Eye exam: Present: normal appearance, EOMI. Absent: nystagmus - ENT ENT exam: Present: normal exam, normal orophraynx, mucous membranes moist, normal external ear exam - Neck Neck exam: Present: normal inspection, full ROM. Absent: tenderness, meningismus - Respiratory Respiratory exam: Present: normal lung sounds bilaterally. Absent: respiratory distress - Cardiovascular Cardiovascular Exam: Present: regular rate, normal rhythm, normal heart sounds. Absent: bradycardia, tachycardia, irregular rhythm, systolic murmur, diastolic murmur, rubs, gallop - GI/Abdominal GI/Abdominal exam: Present: soft. Absent: distended, tenderness, guarding, rebound, rigid, pulsatile mass - Extremities Exam Extremities exam: Present: normal inspection, full ROM, tenderness (there is bilateral quadriceps tenderness. There is bilateral anterior tibial tenderness. The compartments are soft.), other (2+ pulses noted in the bilateral upper extremities. The pelvis is stable. There is no crepitus. The muscular compartments are soft.). Absent: pedal edema, calf tenderness - Back Exam Back exam: Present: normal inspection, full ROM, paraspinal tenderness. Absent: tenderness, CVA tenderness (R), CVA tenderness (L), muscle spasm - Neurological Exam Neurological exam: Present: alert, oriented X3, other (Extraocular movements intact. Tongue midline. No facial droop. Facial sensation intact to light touch in the V1, V2, V3 distribution bilaterally. 5 and 5 strength in 4 extremities.. Sensation is intact to light touch in 4 extremities.). Absent: motor sensory deficit - Psychiatric Psychiatric exam: Present: anxious - Skin Skin exam: Present: warm, dry, intact, normal color. Absent: rash ED Course Vital Signs 06/02/19 06/02/19 06/02/19 08:45 10:43 12:19 Temperature 98.5 F 98.1 F Pulse Rate 78 84 75 Respiratory 22 16 16 Rate Blood Pressure 191/94 Blood Pressure 180/92 148/61 [Left] O2 Sat by Pulse 98 99 95 Oximetry - Reevaluation(s) Reevaluation #1: 06/02/19 11:12 Differential diagnosis, including not limited to: Sickle cell crisis, urinary tract infection, narcotic dependence Assessment and plan: 33-year-old female presenting with recurrent complaint of sickle cell crisis. The patient is afebrile with reassuring vital signs with the exception of hypertension. Hypertension is chronic. CBC reviewed and appreciated. We will treat the patient's pain. Doubt urinary tract infection, however, urinalysis has been requested. Reevaluation #2: 06/02/19 12:56 Patient has received 3 doses of hydromorphone. Her pain is improved. She is napping comfortably in her stretcher. She endorses improvement in her symptoms to her nurse. She reported that she has follow-up with her gambling dealer on Sunday. She may be discharged at this time. ED Medical Decision Making - Lab Data Result diagrams: 06/02/19 09:20 Vital Signs 06/02/19 06/02/19 08:45 10:43 Temperature 98.5 F Pulse Rate 78 84 Respiratory 22 16 Rate Blood Pressure 191/94 Blood Pressure 180/92 [Left] O2 Sat by Pulse 98 99 Oximetry Lab Results 06/02/19 Range/Units 09:20 WBC 16.0 H (4.5-11.0) K/mm3 RBC 3.11 L (3.65-5.03) M/mm3 Hgb 9.1 L (10.1-14.3) gm/dl Hct 27.7 L (30.3-42.9) % MCV 89 (79-97) fl MCH 29 (28-32) pg MCHC 33 (30-34) % RDW 17.9 H (13.2-15.2) % Plt Count 436 (140-440) K/mm3 Lymph % (Auto) 20.8 (13.4-35.0) % [place] % (Auto) 6.6 (0.0-7.3) % Eos % (Auto) 6.4 H (0.0-4.3) % Baso % (Auto) 0.8 (0.0-1.8) % Lymph # 3.3 (1.2-5.4) K/mm3 [place] # 1.1 H (0.0-0.8) K/mm3 Eos # 1.0 H (0.0-0.4) K/mm3 Baso # 0.1 (0.0-0.1) K/mm3 Seg Neutrophils % 65.4 (40.0-70.0) % Seg Neutrophils # 10.4 H (1.8-7.7) K/mm3 Percent Retic 7.39 H (0.78-2.58) % Critical care attestation.: If time is entered above; I have spent that time in minutes in the direct care of this critically ill patient, excluding procedure time. ED Disposition Clinical Impression: Sickle cell pain crisis Disposition: TO HOME OR SELFCARE Is pt being admited?: No Does the pt Need Aspirin: No Condition: Stable Additional Instructions: Continue current outpatient pain medications as prescribed by your primary care physician, gambling dealer. Drink copious fluids, and advance diet as tolerated. Follow-up with your gambling dealer on Sunday as scheduled. Return to the emergency room right away with He, worsened or different symptoms, or symptoms not present on the initial emergency room evaluation. Referrals: SEMAJ FLYNN DO [Staff Physician] - 3-5 Days
[2019-06-02 09:40] LABS: Basophils # (Auto) 0.1 K/mm3 (0.0-0.1); Basophils % (Auto) 0.8 % (0.0-1.8); Eosinophils % (Auto) 6.4 % (0.0-4.3); Hematocrit 27.7 % (30.3-42.9); Hemoglobin 9.1 gm/dl (10.1-14.3); Lymphocytes # (Auto) 3.3 K/mm3 (1.2-5.4); Lymphocytes % (Auto) 20.8 % (13.4-35.0); Mean Corpuscular HGB Conc 33 % (30-34); Mean Corpuscular Volume 89 fl (79-97); Monocytes # (Auto) 1.1 K/mm3 (0.0-0.8); Monocytes % (Auto) 6.6 % (0.0-7.3); Platelet Count 436 K/mm3 (140-440); Red Blood Count 3.11 M/mm3 (3.65-5.03); Red Cell Distribution Width 17.9 % (13.2-15.2)
[2019-06-02] MEDS ORDERED: ZOFRAN ODT ONE (09:45)
[2019-06-02] MEDS ORDERED: ZOFRAN ODT PO PRN (10:02)
[2019-06-02] MEDS ORDERED: D5/0.45NS 1,000 ML IV ONE (10:31)
[2019-06-02] MEDS ORDERED: DILAUDID ONE ×2 (10:39)
[2019-06-02] MEDS ORDERED: D5/0.45NS 1,000 ML IV SCH (11:00)
[2019-06-02 12:13] LABS: Bacteria,Urine 1+ /HPF (Negative); Bilirubin,Urine NEG (Negative); Blood,Urine NEG (Negative); Color,Urine Yellow (Yellow)
[2019-06-02 12:19] VITALS: BP 148/61
[2019-06-02] MEDS ORDERED: FLUSH HEPARIN IV ONE (12:32)
== END 2019-06-02 13:21 | disposition home or self-care (01) ==
LOC: ED 08:42
DX: D57.00 Hb-SS disease with crisis, unspecified (principal); I10 Essential (primary) hypertension; M19.90 Unspecified osteoarthritis, unspecified site; J45.909 Unspecified asthma, uncomplicated; Z90.49 Acquired absence of other specified parts of digestive tract; Z79.899 Other long term (current) drug therapy; Z88.6 Allergy status to analgesic agent
CPT/HCPCS: 36415; 81001; 85025; 85045; 96374; 96375; 96376; 99284; J1170; J1642; 96361; Q0162

== ENCOUNTER 2019-06-10 08:00 | Emergency (ER) | payer MEDICAID ==
--- NOTE | 2019-06-10 09:08 | Emergency Department Report ---
HPI - General Chief Complaint: Sickle Cell Crisis Time Seen by Provider: 06/10/19 08:38 - HPI HPI: 33-year-old -[place] female, who is well-known to this emergency Department, presents to the emergency department with complaint of low back pain, leg pain, and basically generalized musculoskeletal pain that she believes is a sickle cell pain crisis. She has a history of arthritis, asthma, hypertension, anemia and the sickle cell anemia. She has a chest port in place. She has been taking her Huggins acid, hydroxyurea, and some Percocet at home for her symptoms without any relief. She denies any fever, chest pain, shortness of breath, problems with bowel or bladder, numbness or paresthesias, or any neurological deficits. The garden worker is Dr. Torres. ED Past Medical Hx - Past Medical History Previous Medical History?: Yes Hx Hypertension: Yes Hx Heart Attack/AMI: No Hx Congestive Heart Failure: No Hx Diabetes: No Hx Sickle Cell Disease: Yes Hx Arthritis: Yes Hx Asthma: Yes Hx COPD: No Hx HIV: No Additional medical history: ANEMIA, multiple port infections - Surgical History Past Surgical History?: Yes Hx Cholecystectomy: Yes Additional Surgical History: , port removed June 2014. PICC line left upper arm (11/19/2014). . - Social History Smoking Status: Never Smoker Substance Use Type: None - Medications Home Medications: Home Medications Medication Instructions Recorded Confirmed Last Taken Type Folic Acid [Folvite] 1 mg PO DAILY #30 tablet 07/29/16 05/23/19 Unknown Rx Lisinopril [Zestril TAB] 40 mg PO QDAY #30 tablet 12/02/16 05/23/19 05/23/19 Rx amLODIPine [Norvasc] 10 mg PO QDAY #30 tablet 12/02/16 05/23/19 05/23/19 Rx Hydroxyurea [Hydrea] 500 mg PO DAILY 03/19/19 05/23/19 05/23/19 History Methadone [Dolophine] 10 mg PO BID 03/19/19 05/23/19 05/23/19 History cloNIDine [Catapres] 0.2 mg PO BID 03/19/19 05/23/19 Unknown History Acetaminophen [Non-Aspirin Extra 500 mg PO Q6HR PRN #30 tablet 06/02/19 Unknown Rx Strength] Ibuprofen [Motrin] 600 mg PO Q8H PRN #30 tablet 06/02/19 Unknown Rx Ondansetron [Zofran Odt] 4 mg PO Q8HR PRN #20 tab.rapdis 06/02/19 Unknown Rx Oxycodone HCl/Acetaminophen 1 each PO Q12H PRN #6 tablet 06/02/19 Unknown Rx [Percocet 10/325 mg] ED Review of Systems ROS: Stated complaint: SICKLE CELL/PAIN Other details as noted in HPI Comment: All other systems reviewed and negative Constitutional: denies: chills, fever Eyes: denies: eye pain, vision change ENT: denies: ear pain, throat pain Respiratory: denies: cough, shortness of breath Cardiovascular: denies: chest pain, palpitations Gastrointestinal: denies: abdominal pain, vomiting Genitourinary: denies: dysuria, discharge Musculoskeletal: back pain, arthralgia, myalgia. denies: joint swelling Skin: denies: rash, lesions Neurological: denies: headache, weakness, numbness, paresthesias Physical Exam - Physical Exam Vital Signs: Vital Signs 06/10/19 08:10 Temperature 98.9 F Pulse Rate 78 Respiratory 18 Rate Blood Pressure 192/98 O2 Sat by Pulse 92 Oximetry Physical Exam: GENERAL: The patient is well-developed well-nourished. HENT: Normocephalic. Atraumatic. Patient has moist mucous membranes. EYES: Extraocular motions are intact. Pupils equal reactive to light bilaterally. NECK: Supple. Trachea is midline. CHEST/LUNGS: Clear to auscultation. There is no respiratory distress noted. HEART/CARDIOVASCULAR: Regular. There is no tachycardia. There is no murmur. ABDOMEN: Abdomen is soft, nontender. Patient has normal bowel sounds. Obese habitus. SKIN: Skin is warm and dry. NEURO: The patient is awake, alert, and oriented. The patient is cooperative. The patient has no focal neurologic deficits. The patient has normal speech. MUSCULOSKELETAL: There is no tenderness or deformity. There is no evidence of acute injury. BACK: No midline thoracic or lumbar tenderness to palpation, step-off or deformity. There is some reproducible bilateral lumbar paraspinal tenderness to palpation. ED Course Vital Signs 06/10/19 08:10 Temperature 98.9 F Pulse Rate 78 Respiratory 18 Rate Blood Pressure 192/98 O2 Sat by Pulse 92 Oximetry ED Medical Decision Making - Lab Data Result diagrams: 06/10/19 09:15 06/10/19 09:15 - Medical Decision Making This patient presents to the emergency department with the complaint of some leg pain, back pain and generalized body aches secondary to a sickle cell pain crisis. Patient does have some anemia with a hemoglobin of 7.7. She does have an elevated reticulocyte count. Vital signs stable including being afebrile. The patient has no complaints of any chest pain, shortness breath, fever and does not appear to be consistent with any chest crisis. She was given some IV f luid, pain medication and reevaluated multiple times around 2 hours. The patient says she is feeling greatly improved and asking for discharge home. She does have good close follow-up with hematology and has been instructed to see them in the next 1-2 days. Otherwise, she will return to the ER with any worsening of her symptoms or any acute distress. - Differential Diagnosis sickle cell pain crisis, fibromyalgia, rhabdomyolysis Critical Care Time: No Critical care attestation.: If time is entered above; I have spent that time in minutes in the direct care of this critically ill patient, excluding procedure time. ED Disposition Clinical Impression: Anemia, sickle cell with crisis, Sickle cell pain crisis Hypertension Qualifiers: Hypertension type: essential hypertension Qualified Code(s): I10 - Essential (primary) hypertension Disposition: -01 TO HOME OR SELFCARE Is pt being admited?: No Condition: Stable Instructions: Sickle Cell Crisis (ED), Hypertension (ED), Anemia (ED) Additional Instructions: Please follow-up with your garden worker in the next few days. Return to the emergency Department with any worsening of your symptoms or any acute distress. Take your blood pressure medications. Try and stay away from foods are high in salt and caffeinated products. Keep a blood pressure log. Referrals: Nursing Director, Your [Other] - 2-3 Days
[2019-06-10 09:31] LABS: Hematocrit 23.5 % (30.3-42.9); Hemoglobin 7.7 gm/dl (10.1-14.3); Mean Corpuscular HGB Conc 33 % (30-34); Mean Corpuscular Volume 91 fl (79-97); Platelet Count 412 K/mm3 (140-440); Red Blood Count 2.58 M/mm3 (3.65-5.03)
[2019-06-10 09:34] LABS: Red Cell Distribution Width 22.1 % (13.2-15.2)
[2019-06-10] MEDS ORDERED: DILAUDID IV ONE ×3 (09:34→11:40)
[2019-06-10] MEDS ORDERED: ZOFRAN IV ONE (09:34)
[2019-06-10 09:55] LABS: Alanine Aminotransferase 51 units/L (7-56); Albumin 3.6 g/dL (3.9-5); BUN/Creatinine Ratio 14; Blood Urea Nitrogen 10 mg/dL (7-17); Hemolysis Index 9
[2019-06-10 10:14] LABS: Erythrocyte Sedimentation Rate 44 mm/Hr (0-20)
[2019-06-10] MEDS ORDERED: BENADRYL IV ONE ×2 (10:40→11:48)
[2019-06-10 11:22] LABS: Bilirubin,Urine NEG (Negative); Blood,Urine NEG (Negative); Color,Urine Yellow (Yellow)
[2019-06-10 11:23] LABS: HCG Qualitative,Urine Negative (Negative); Protein,Urine >2000 mg dL mg/dL (Negative)
[2019-06-10 12:52] VITALS: BP 190/96
[2019-06-10] MEDS ORDERED: FLUSH HEPARIN IV ONE (12:53)
== END 2019-06-10 13:06 | disposition home or self-care (01) ==
LOC: ED 08:00
DX: D57.00 Hb-SS disease with crisis, unspecified (principal); D64.9 Anemia, unspecified; I10 Essential (primary) hypertension; M19.90 Unspecified osteoarthritis, unspecified site; J45.909 Unspecified asthma, uncomplicated; Z90.49 Acquired absence of other specified parts of digestive tract; Z98.890 Other specified postprocedural states; Z79.899 Other long term (current) drug therapy; Z88.8 Allergy status to other drugs, medicaments and biological substances
CPT/HCPCS: 36415; 80053; 81001; 81025; 85027; 85045; 85652; 96374; 96375; 96376; 99283; J1170; J1200; J1642; J2405

== ENCOUNTER 2019-06-16 08:27 | Emergency (ER) | payer MEDICAID ==
[2019-06-16] MEDS ORDERED: DILAUDID IV ONE ×4 (10:43→14:45)
[2019-06-16] MEDS ORDERED: BENADRYL IV ONE ×2 (10:43→14:45)
[2019-06-16] MEDS ORDERED: ZOFRAN IV ONE (10:43)
[2019-06-16] MEDS ORDERED: TORADOL IV ONE (10:43)
[2019-06-16] MEDS ORDERED: DUONEB *Not for PRN Use IH ONE (10:52)
[2019-06-16] MEDS ORDERED: D5NS 0.2% 1,000 ML IV SCH (11:00)
--- NOTE | 2019-06-16 11:10 | Emergency Department Report ---
ED General Adult HPI - General Chief complaint: Sickle Cell Crisis Stated complaint: SICKLE CELL Time Seen by Provider: 06/16/19 09:54 Source: patient Mode of arrival: Ambulatory Limitations: No Limitations - History of Present Illness Initial comments: 33-year-old female with a past medical history sickle cell disease, asthma, arthritis, and hypertension presents to the hospital complains of pain secondary to sickle cell crisis. Pain is to the lower back and legs 2 days. Patient continues to have pain despite taking her methadone and Percocet. She states that her asthma has been acting up since yesterday with episodes of wheezing. She denies fever, dysuria, urinary frequency, focal weakness or numbness. - Related Data Home Medications Medication Instructions Recorded Confirmed Last Taken Hydroxyurea [Hydrea] 500 mg PO DAILY 03/19/19 05/23/19 05/23/19 Methadone [Dolophine] 10 mg PO BID 03/19/19 05/23/19 05/23/19 cloNIDine [Catapres] 0.2 mg PO BID 03/19/19 05/23/19 Unknown Previous Rx's Medication Instructions Recorded Last Taken Type Folic Acid [Folvite] 1 mg PO DAILY #30 tablet 07/29/16 Unknown Rx Lisinopril [Zestril TAB] 40 mg PO QDAY #30 tablet 12/02/16 05/23/19 Rx amLODIPine [Norvasc] 10 mg PO QDAY #30 tablet 12/02/16 05/23/19 Rx Acetaminophen [Non-Aspirin Extra 500 mg PO Q6HR PRN #30 tablet 06/02/19 Unknown Rx Strength] Ibuprofen [Motrin] 600 mg PO Q8H PRN #30 tablet 06/02/19 Unknown Rx Ondansetron [Zofran Odt] 4 mg PO Q8HR PRN #20 tab.rapdis 06/02/19 Unknown Rx Oxycodone HCl/Acetaminophen 1 each PO Q12H PRN #6 tablet 06/02/19 Unknown Rx [Percocet 10/325 mg] Allergies Allergy/AdvReac Type Severity Reaction Status Date / Time morphine Allergy Shortness Verified 06/02/19 08:43 of Breath ED Review of Systems ROS: Stated complaint: SICKLE CELL Other details as noted in HPI Comment: All other systems reviewed and negative ED Past Medical Hx - Past Medical History Previous Medical History?: Yes Hx Hypertension: Yes Hx Heart Attack/AMI: No Hx Congestive Heart Failure: No Hx Diabetes: No Hx Sickle Cell Disease: Yes Hx Arthritis: Yes Hx Asthma: Yes Hx COPD: No Hx HIV: No Additional medical history: ANEMIA, multiple port infections - Surgical History Past Surgical History?: Yes Hx Cholecystectomy: Yes Additional Surgical History: , port removed June 2014. PICC line left upper arm (11/19/2014). . - Social History Smoking Status: Never Smoker Substance Use Type: None - Medications Home Medications: Home Medications Medication Instructions Recorded Confirmed Last Taken Type Folic Acid [Folvite] 1 mg PO DAILY #30 tablet 07/29/16 05/23/19 Unknown Rx Lisinopril [Zestril TAB] 40 mg PO QDAY #30 tablet 12/02/16 05/23/19 05/23/19 Rx amLODIPine [Norvasc] 10 mg PO QDAY #30 tablet 12/02/16 05/23/19 05/23/19 Rx Hydroxyurea [Hydrea] 500 mg PO DAILY 03/19/19 05/23/19 05/23/19 History Methadone [Dolophine] 10 mg PO BID 03/19/19 05/23/19 05/23/19 History cloNIDine [Catapres] 0.2 mg PO BID 03/19/19 05/23/19 Unknown History Acetaminophen [Non-Aspirin Extra 500 mg PO Q6HR PRN #30 tablet 06/02/19 Unknown Rx Strength] Ibuprofen [Motrin] 600 mg PO Q8H PRN #30 tablet 06/02/19 Unknown Rx Ondansetron [Zofran Odt] 4 mg PO Q8HR PRN #20 tab.rapdis 06/02/19 Unknown Rx Oxycodone HCl/Acetaminophen 1 each PO Q12H PRN #6 tablet 06/02/19 Unknown Rx [Percocet 10/325 mg] ED Physical Exam - General Limitations: No Limitations - Other Other exam information: General: No limitations, patient is alert in no acute distress Head exam: Atraumatic, normocephalic Eyes exam: Normal appearance, pupils equal reactive to light, extraocular movements intact ENT: Moist mucous membrane, normal oropharynx Neck exam: Normal inspection, full range of motion, no meningismus nontender Respiratory exam: Clear to auscultation bilateral, no wheezes, rales, crackles, port to chest wall Cardiovascular: Normal rate and rhythm Abdomen: Soft, nondistended, and nontender, with normal bowel sounds, no rebound, or guarding Extremity: Full range of motion normal inspection no deformity Back: Normal Inspection, full range of motion, diffuse lower back tenderness Neurologic: Alert, oriented x3, cranial nerves intact, no motor or sensory deficit Psychiatric: normal affect, normal mood Skin: Warm, dry, intact ED Course Vital Signs 06/16/19 06/16/19 06/16/19 08:32 10:00 11:26 Temperature 98.5 F Pulse Rate 77 Pulse Rate [ 70 Anterior Throughout] Respiratory 20 18 Rate Respiratory 16 Rate [Anterior Throughout] Blood Pressure 180/94 Blood Pressure [Left] O2 Sat by Pulse 100 99 Oximetry 06/16/19 06/16/19 06/16/19 11:30 11:51 13:29 Temperature 98.2 F Pulse Rate 79 81 Pulse Rate [ Anterior Throughout] Respiratory 15 22 19 Rate Respiratory Rate [Anterior Throughout] Blood Pressure Blood Pressure 152/92 167/89 [Left] O2 Sat by Pulse 99 97 Oximetry ED Medical Decision Making - Lab Data Result diagrams: 06/16/19 11:58 06/16/19 11:58 Lab Results 06/16/19 06/16/19 06/16/19 Range/Units 11:58 11:58 11:58 WBC 15.2 H (4.5-11.0) K/mm3 RBC 3.16 L (3.65-5.03) M/mm3 Hgb 9.6 L (10.1-14.3) gm/dl Hct 29.3 L (30.3-42.9) % MCV 93 (79-97) fl MCH 30 (28-32) pg MCHC 33 (30-34) % RDW 21.9 H (13.2-15.2) % Plt Count 356 (140-440) K/mm3 Add Manual Diff Complete Total Counted 100 Seg Neuts % (Manual) 83.0 H (40.0-70.0) % Band Neutrophils % 0 % Lymphocytes % (Manual) 14.0 (13.4-35.0) % Reactive Lymphs % (Man) 0 % Monocytes % (Manual) 3.0 (0.0-7.3) % Eosinophils % (Manual) 0 (0.0-4.3) % Basophils % (Manual) 0 (0.0-1.8) % Metamyelocytes % 0 % Myelocytes % 0 % Promyelocytes % 0 % Blast Cells % 0 % Nucleated RBC % Not Reportable Seg Neutrophils # Man 12.6 H (1.8-7.7) K/mm3 Band Neutrophils # 0.0 K/mm3 Lymphocytes # (Manual) 2.1 (1.2-5.4) K/mm3 Abs React Lymphs (Man) 0.0 K/mm3 Monocytes # (Manual) 0.5 (0.0-0.8) K/mm3 Eosinophils # (Manual) 0.0 (0.0-0.4) K/mm3 Basophils # (Manual) 0.0 (0.0-0.1) K/mm3 Metamyelocytes # 0.0 K/mm3 Myelocytes # 0.0 K/mm3 Promyelocytes # 0.0 K/mm3 Blast Cells # 0.0 K/mm3 WBC Morphology Not Reportable Hypersegmented Neuts Not Reportable Hyposegmented Neuts Not Reportable Hypogranular Neuts Not Reportable Smudge Cells Not Reportable Toxic Granulation Not Reportable Toxic Vacuolation Not Reportable Dohle Bodies Not Reportable Pelger-Huet Anomaly Not Reportable Ariadne Rods Not Reportable Platelet Estimate Consistent w auto Clumped Platelets Not Reportable Plt Clumps, EDTA Not Reportable Large Platelets Not Reportable Giant Platelets Few Platelet Satelliting Not Reportable Plt Morphology Comment Not Reportable RBC Morphology Not Reportable Dimorphic RBCs Not Reportable Polychromasia Not Reportable Hypochromasia 1+ Poikilocytosis Not Reportable Anisocytosis 1+ Microcytosis Not Reportable Macrocytosis Not Reportable Spherocytes Not Reportable Pappenheimer Bodies Not Reportable Sickle Cells Few Target Cells 2+ Tear Drop Cells Not Reportable Ovalocytes Not Reportable Helmet Cells Not Reportable [place] Bodies Not Reportable [place] Rings Not Reportable Betsy Cells Not Reportable Bite Cells Not Reportable Crenated Cell Not Reportable Elliptocytes Not Reportable Acanthocytes (Spur) Not Reportable Rouleaux Not Reportable Hemoglobin C Crystals Not Reportable Schistocytes Not Reportable Malaria parasites Not Reportable Percent Retic 3.92 H (0.78-2.58) % Alexis Bodies Not Reportable Hem Pathologist Commnt No Sodium 141 (137-145) mmol/L Potassium 3.8 (3.6-5.0) mmol/L Chloride 101.9 (98-107) mmol/L Carbon Dioxide 26 (22-30) mmol/L Anion Gap 17 mmol/L BUN 9 (7-17) mg/dL Creatinine 0.8 (0.7-1.2) mg/dL Estimated GFR > 60 ml/min BUN/Creatinine Ratio 11 % Glucose 104 H (65-100) mg/dL Calcium 9.1 (8.4-10.2) mg/dL HCG, Qual Negative (Negative) Urine Color (Yellow) Urine Turbidity (Clear) Urine pH (5.0-7.0) Ur Specific Melissa (1.003-1.030) Urine Protein (Negative) mg/dL Urine Glucose (UA) (Negative) mg/dL Urine Ketones (Negative) mg/dL Urine Blood (Negative) Urine Nitrite (Negative) Urine Bilirubin (Negative) Urine Urobilinogen (<2.0) mg/dL Ur Leukocyte Esterase (Negative) Urine WBC (Auto) (0.0-6.0) /HPF Urine RBC (Auto) (0.0-6.0) /HPF Urine Bacteria (Auto) (Negative) /HPF 06/16/19 Range/Units 12:49 WBC (4.5-11.0) K/mm3 RBC (3.65-5.03) M/mm3 Hgb (10.1-14.3) gm/dl Hct (30.3-42.9) % MCV (79-97) fl MCH (28-32) pg MCHC (30-34) % RDW (13.2-15.2) % Plt Count (140-440) K/mm3 Add Manual Diff Total Counted Seg Neuts % (Manual) (40.0-70.0) % Band Neutrophils % % Lymphocytes % (Manual) (13.4-35.0) % Reactive Lymphs % (Man) % Monocytes % (Manual) (0.0-7.3) % Eosinophils % (Manual) (0.0-4.3) % Basophils % (Manual) (0.0-1.8) % Metamyelocytes % % Myelocytes % % Promyelocytes % % Blast Cells % % Nucleated RBC % Seg Neutrophils # Man (1.8-7.7) K/mm3 Band Neutrophils # K/mm3 Lymphocytes # (Manual) (1.2-5.4) K/mm3 Abs React Lymphs (Man) K/mm3 Monocytes # (Manual) (0.0-0.8) K/mm3 Eosinophils # (Manual) (0.0-0.4) K/mm3 Basophils # (Manual) (0.0-0.1) K/mm3 Metamyelocytes # K/mm3 Myelocytes # K/mm3 Promyelocytes # K/mm3 Blast Cells # K/mm3 WBC Morphology Hypersegmented Neuts Hyposegmented Neuts Hypogranular Neuts Smudge Cells Toxic Granulation Toxic Vacuolation Dohle Bodies Pelger-Huet Anomaly Ariadne Rods Platelet Estimate Clumped Platelets Plt Clumps, EDTA Large Platelets Giant Platelets Platelet Satelliting Plt Morphology Comment RBC Morphology Dimorphic RBCs Polychromasia Hypochromasia Poikilocytosis Anisocytosis Microcytosis Macrocytosis Spherocytes Pappenheimer Bodies Sickle Cells Target Cells Tear Drop Cells Ovalocytes Helmet Cells [place] Bodies [place] Rings Betsy Cells Bite Cells Crenated Cell Elliptocytes Acanthocytes (Spur) Rouleaux Hemoglobin C Crystals Schistocytes Malaria parasites Percent Retic (0.78-2.58) % Alexis Bodies Hem Pathologist Commnt Sodium (137-145) mmol/L Potassium (3.6-5.0) mmol/L Chloride (98-107) mmol/L Carbon Dioxide (22-30) mmol/L Anion Gap mmol/L BUN (7-17) mg/dL Creatinine (0.7-1.2) mg/dL Estimated GFR ml/min BUN/Creatinine Ratio % Glucose (65-100) mg/dL Calcium (8.4-10.2) mg/dL HCG, Qual (Negative) Urine Color Yellow (Yellow) Urine Turbidity Clear (Clear) Urine pH 7.0 (5.0-7.0) Ur Specific Melissa 1.011 (1.003-1.030) Urine Protein >500 (Negative) mg/dL Urine Glucose (UA) Neg (Negative) mg/dL Urine Ketones Neg (Negative) mg/dL Urine Blood Neg (Negative) Urine Nitrite Neg (Negative) Urine Bilirubin Neg (Negative) Urine Urobilinogen < 2.0 (<2.0) mg/dL Ur Leukocyte Esterase Neg (Negative) Urine WBC (Auto) < 1.0 (0.0-6.0) /HPF Urine RBC (Auto) 1.0 (0.0-6.0) /HPF Urine Bacteria (Auto) 1+ (Negative) /HPF - Radiology Data Radiology results: report reviewed CHEST 2 VIEWS INDICATION / CLINICAL INFORMATION: cough, wheeze, sickle cell. COMPARISON: 04/23/2019 FINDINGS: SUPPORT DEVICES: Left port catheter overlies expected location of the right atrium HEART / MEDIASTINUM: Moderate cardiac enlargement and pulmonary venous hypertension. LUNGS / PLEURA: No significant pulmonary or pleural abnormality. No pneumothorax. ADDITIONAL FINDINGS: No significant additional findings. IMPRESSION: 1. Stable enlargement of the cardiac silhouette. Lumbosacral spine, 2 views INDICATION: back pain, sickle cell. COMPARISON: None. IMPRESSION: Normal alignment. Moderate degenerative disc disease is identified at L2-3. The remaining disc levels are unremarkable. The facet joints are within normal limits. No acute osseous or soft tissue abnormality. - Medical Decision Making Patient has mild anemia and mild with mild retic count elevation. She is otherwise stable. Pain improvement after Dilaudid 2 mg IV 3, Benadryl, and Toradol. She will be discharged to continue her current home medications of methadone and Percocet. Follow up with her resource engineer is advised. Patient received a DuoNeb for mild asthma exacerbation with improvement - Differential Diagnosis sickle cell crisis, anemia, infection, chronic pain Critical Care Time: No Critical care attestation.: If time is entered above; I have spent that time in minutes in the direct care of this critically ill patient, excluding procedure time. ED Disposition Clinical Impression: Anemia, sickle cell with crisis, Active asthma Disposition: TO HOME OR SELFCARE Is pt being admited?: No Does the pt Need Aspirin: No Condition: Stable Instructions: Asthma (ED), Sickle Cell Crisis (ED) Additional Instructions: Continue your current medication as prescribed. Follow up with your doctor or the clinic/doctor provided. Return if symptoms worsen as indicated by your discharge instructions Referrals: MD ashtyn resource engineer [Other] - 3-5 Days Time of Disposition: 15:06
[2019-06-16 12:14] LABS: Hematocrit 29.3 % (30.3-42.9); Hemoglobin 9.6 gm/dl (10.1-14.3); Mean Corpuscular HGB Conc 33 % (30-34); Mean Corpuscular Volume 93 fl (79-97); Platelet Count 356 K/mm3 (140-440); Red Blood Count 3.16 M/mm3 (3.65-5.03)
[2019-06-16 12:17] LABS: Red Cell Distribution Width 21.9 % (13.2-15.2)
[2019-06-16 12:33] LABS: BUN/Creatinine Ratio 11; Blood Urea Nitrogen 9 mg/dL (7-17); Calcium 9.1 mg/dL (8.4-10.2); Hemolysis Index 3
[2019-06-16 12:55] LABS: Anisocytosis 1+; Basophils % (Manual) 0 % (0.0-1.8); Eosinophils % (Manual) 0 % (0.0-4.3); Target Cells 2+; Total Cells Counted 100
[2019-06-16 12:56] LABS: Giant Platelets Few; Hypochromasia 1+; Sickle Cells Few
[2019-06-16 12:57] LABS: Platelet Estimate Consistent w Auto
[2019-06-16 13:10] LABS: Bacteria,Urine 1+ /HPF (Negative); Bilirubin,Urine NEG (Negative); Blood,Urine NEG (Negative); Color,Urine Yellow (Yellow); Urobilinogen,Urine < 2.0 mg/dL (<2.0); WBC,Urine < 1.0 /HPF (0.0-6.0)
[2019-06-16 13:12] LABS: Protein,Urine >500 mg/dL (Negative)
--- NOTE | 2019-06-16 13:20 | XRay Report ---
CHEST 2 VIEWS INDICATION / CLINICAL INFORMATION: cough, wheeze, sickle cell. COMPARISON: 04/23/2019 FINDINGS: SUPPORT DEVICES: Left port catheter overlies expected location of the right atrium HEART / MEDIASTINUM: Moderate cardiac enlargement and pulmonary venous hypertension. LUNGS / PLEURA: No significant pulmonary or pleural abnormality. No pneumothorax. ADDITIONAL FINDINGS: No significant additional findings. IMPRESSION: 1. Stable enlargement of the cardiac silhouette. Signer Name: Ochoa Nolan MD Signed: 06/16/2019 1:15 PM Workstation Name: [id number]
--- NOTE | 2019-06-16 13:31 | XRay Report ---
Lumbosacral spine, 2 views INDICATION: back pain, sickle cell. COMPARISON: None. IMPRESSION: Normal alignment. Moderate degenerative disc disease is identified at L2-3. The remaini ng disc levels are unremarkable. The facet joints are within normal limits. No acute osseous or soft tissue abnormality. Signer Name: Tony Montilla Jr, MD Signed: 06/16/2019 1:27 PM Workstation Name: [id number]
[2019-06-16 15:15] VITALS: BP 132/74
[2019-06-16] MEDS ORDERED: FLUSH HEPARIN IV ONE ×2 (15:18→15:21)
== END 2019-06-16 15:25 | disposition home or self-care (01) ==
LOC: ED 08:27
DX: D57.00 Hb-SS disease with crisis, unspecified (principal); D64.9 Anemia, unspecified; J45.901 Unspecified asthma with (acute) exacerbation; I10 Essential (primary) hypertension; M19.90 Unspecified osteoarthritis, unspecified site; Z90.49 Acquired absence of other specified parts of digestive tract; Z98.890 Other specified postprocedural states; Z79.899 Other long term (current) drug therapy; Z88.5 Allergy status to narcotic agent
CPT/HCPCS: 36415; 71046; 72100; 80048; 81001; 84703; 85007; 85025; 85045; 94644; 96374; 96375; 96376; 99284; J1170; J1200; J1642; J1885; J2405

== ENCOUNTER 2019-06-25 08:36 | Emergency (ER) | payer MEDICAID ==
[2019-06-25 09:45] LABS: Basophils # (Auto) 0.1 K/mm3 (0.0-0.1); Basophils % (Auto) 0.7 % (0.0-1.8); Eosinophils # (Auto) 0.5 K/mm3 (0.0-0.4); Eosinophils % (Auto) 3.8 % (0.0-4.3); Hematocrit 26.7 % (30.3-42.9); Hemoglobin 9.1 gm/dl (10.1-14.3); Lymphocytes % (Auto) 14.7 % (13.4-35.0); Mean Corpuscular HGB Conc 34 % (30-34); Mean Corpuscular Volume 90 fl (79-97); Monocytes # (Auto) 1.2 K/mm3 (0.0-0.8); Monocytes % (Auto) 8.8 % (0.0-7.3); Platelet Count 557 K/mm3 (140-440); Red Blood Count 2.97 M/mm3 (3.65-5.03); Red Cell Distribution Width 19.1 % (13.2-15.2)
[2019-06-25 09:57] LABS: Alanine Aminotransferase 46 units/L (7-56); Albumin 3.7 g/dL (3.9-5); BUN/Creatinine Ratio 14; Blood Urea Nitrogen 11 mg/dL (7-17); Calcium 9.1 mg/dL (8.4-10.2); Hemolysis Index 5
[2019-06-25] MEDS ORDERED: NACL 0.9% 1000 ML 1,000 ML IV ONE (10:03)
[2019-06-25] MEDS ORDERED: ZOFRAN IV ONE (10:03)
[2019-06-25] MEDS ORDERED: DILAUDID IV ONE ×3 (10:04→12:10)
[2019-06-25] MEDS ORDERED: BANOPHEN PO ONE (10:07)
--- NOTE | 2019-06-25 10:32 | Emergency Department Report ---
ED General Adult HPI - General Chief complaint: Sickle Cell Crisis Stated complaint: SICKLE CELL CRISIS Time Seen by Provider: 06/25/19 09:30 Source: patient Mode of arrival: Ambulatory Limitations: No Limitations - History of Present Illness Initial comments: Patient presents to the emergency department with a chief complaint of back and right arm pain due to sickle cell crisis. Patient states this is the usual pain level and distribution of her sickle cell crisis. Patient states her crises are usually brought on by changes in the weather or her before her cycle. Patient is currently on her cycle. Patient denies any chest pain or shortness of breath or abdominal pain. -: Sudden Location: back, upper extremity Radiation: non-radiation Severity scale (0 -10): 9 Consistency: constant Improves with: none Worsens with: none Associated Symptoms: denies other symptoms Treatments Prior to Arrival: none - Related Data Home Medications Medication Instructions Recorded Confirmed Last Taken Hydroxyurea [Hydrea] 500 mg PO DAILY 03/19/19 05/23/19 05/23/19 Methadone [Dolophine] 10 mg PO BID 03/19/19 05/23/19 05/23/19 cloNIDine [Catapres] 0.2 mg PO BID 03/19/19 05/23/19 Unknown Previous Rx's Medication Instructions Recorded Last Taken Type Folic Acid [Folvite] 1 mg PO DAILY #30 tablet 07/29/16 Unknown Rx Lisinopril [Zestril TAB] 40 mg PO QDAY #30 tablet 12/02/16 05/23/19 Rx amLODIPine [Norvasc] 10 mg PO QDAY #30 tablet 12/02/16 05/23/19 Rx Acetaminophen [Non-Aspirin Extra 500 mg PO Q6HR PRN #30 tablet 06/02/19 Unknown Rx Strength] Ibuprofen [Motrin] 600 mg PO Q8H PRN #30 tablet 06/02/19 Unknown Rx Ondansetron [Zofran Odt] 4 mg PO Q8HR PRN #20 tab.rapdis 06/02/19 Unknown Rx Oxycodone HCl/Acetaminophen 1 each PO Q12H PRN #6 tablet 06/02/19 Unknown Rx [Percocet 10/325 mg] Allergies Allergy/AdvReac Type Severity Reaction Status Date / Time morphine Allergy Shortness Verified 06/25/19 08:38 of Breath ED Review of Systems ROS: Stated complaint: SICKLE CELL CRISIS Other details as noted in HPI Comment: All other systems reviewed and negative Constitutional: denies: chills, fever Eyes: denies: eye pain, eye discharge, vision change ENT: denies: ear pain, throat pain Respiratory: denies: cough, shortness of breath, wheezing Cardiovascular: denies: chest pain, palpitations Endocrine: no symptoms reported Gastrointestinal: denies: abdominal pain, nausea, diarrhea Genitourinary: denies: urgency, dysuria, discharge Musculoskeletal: denies: back pain, joint swelling, arthralgia Skin: denies: rash, lesions Neurological: denies: headache, weakness, paresthesias Psychiatric: denies: anxiety, depression Hematological/Lymphatic: denies: easy bleeding, easy bruising ED Past Medical Hx - Past Medical History Previous Medical History?: Yes Hx Hypertension: Yes Hx Heart Attack/AMI: No Hx Congestive Heart Failure: No Hx Diabetes: No Hx Sickle Cell Disease: Yes Hx Arthritis: Yes Hx Asthma: Yes Hx COPD: No Hx HIV: No Additional medical history: ANEMIA, multiple port infections - Surgical History Hx Cholecystectomy: Yes Additional Surgical History: , port removed June 2014. PICC line left upper arm (11/19/2014). . - Social History Smoking Status: Never Smoker - Medications Home Medications: Home Medications Medication Instructions Recorded Confirmed Last Taken Type Folic Acid [Folvite] 1 mg PO DAILY #30 tablet 07/29/16 05/23/19 Unknown Rx Lisinopril [Zestril TAB] 40 mg PO QDAY #30 tablet 12/02/16 05/23/19 05/23/19 Rx amLODIPine [Norvasc] 10 mg PO QDAY #30 tablet 12/02/16 05/23/19 05/23/19 Rx Hydroxyurea [Hydrea] 500 mg PO DAILY 03/19/19 05/23/19 05/23/19 History Methadone [Dolophine] 10 mg PO BID 03/19/19 05/23/19 05/23/19 History cloNIDine [Catapres] 0.2 mg PO BID 03/19/19 05/23/19 Unknown History Acetaminophen [Non-Aspirin Extra 500 mg PO Q6HR PRN #30 tablet 06/02/19 Unknown Rx Strength] Ibuprofen [Motrin] 600 mg PO Q8H PRN #30 tablet 06/02/19 Unknown Rx Ondansetron [Zofran Odt] 4 mg PO Q8HR PRN #20 tab.rapdis 06/02/19 Unknown Rx Oxycodone HCl/Acetaminophen 1 each PO Q12H PRN #6 tablet 06/02/19 Unknown Rx [Percocet 10/325 mg] ED Physical Exam - General Limitations: No Limitations General appearance: alert, in no apparent distress - Head Head exam: Present: atraumatic, normocephalic - Eye Eye exam: Present: normal appearance, PERRL, EOMI - ENT ENT exam: Present: mucous membranes moist - Neck Neck exam: Present: normal inspection - Respiratory Respiratory exam: Present: normal lung sounds bilaterally. Absent: respiratory distress - Cardiovascular Cardiovascular Exam: Present: regular rate, normal rhythm. Absent: systolic murmur, diastolic murmur, rubs, gallop - GI/Abdominal GI/Abdominal exam: Present: soft, normal bowel sounds. Absent: distended, tenderness - Extremities Exam Extremities exam: Present: normal inspection - Back Exam Back exam: Present: normal inspection - Neurological Exam Neurological exam: Present: alert, oriented X3, CN II-XII intact. Absent: motor sensory deficit - Psychiatric Psychiatric exam: Present: normal affect, normal mood - Skin Skin exam: Present: warm, dry, intact, normal color. Absent: rash ED Course Vital Signs 06/25/19 06/25/19 06/25/19 08:39 09:53 09:57 Temperature 98.4 F 98.4 F Pulse Rate 89 82 Respiratory 18 16 15 Rate Blood Pressure 164/88 Blood Pressure 156/102 [Left] O2 Sat by Pulse 100 100 100 Oximetry ED Medical Decision Making - Lab Data Result diagrams: 06/25/19 Unknown 06/25/19 Unknown Lab Results 06/25/19 06/25/19 06/25/19 Range/Units Unknown Unknown Unknown WBC 13.9 H (4.5-11.0) K/mm3 RBC 2.97 L (3.65-5.03) M/mm3 Hgb 9.1 L (10.1-14.3) gm/dl Hct 26.7 L (30.3-42.9) % MCV 90 (79-97) fl MCH 31 (28-32) pg MCHC 34 (30-34) % RDW 19.1 H (13.2-15.2) % Plt Count 557 H (140-440) K/mm3 Lymph % (Auto) 14.7 (13.4-35.0) % [place] % (Auto) 8.8 H (0.0-7.3) % Eos % (Auto) 3.8 (0.0-4.3) % Baso % (Auto) 0.7 (0.0-1.8) % Lymph # 2.0 (1.2-5.4) K/mm3 [place] # 1.2 H (0.0-0.8) K/mm3 Eos # 0.5 H (0.0-0.4) K/mm3 Baso # 0.1 (0.0-0.1) K/mm3 Seg Neutrophils % 72.0 H (40.0-70.0) % Seg Neutrophils # 10.0 H (1.8-7.7) K/mm3 Percent Retic 3.18 H (0.78-2.58) % Sodium 139 (137-145) mmol/L Potassium 4.1 (3.6-5.0) mmol/L Chloride 103.3 (98-107) mmol/L Carbon Dioxide 24 (22-30) mmol/L Anion Gap 16 mmol/L BUN 11 (7-17) mg/dL Creatinine 0.8 (0.7-1.2) mg/dL Estimated GFR > 60 ml/min BUN/Creatinine Ratio 14 % Glucose 100 (65-100) mg/dL Calcium 9.1 (8.4-10.2) mg/dL Total Bilirubin 1.60 H (0.1-1.2) mg/dL AST 43 H (5-40) units/L ALT 46 (7-56) units/L Alkaline Phosphatase 145 H (35-129) units/L Lactate Dehydrogenase (91-180) units/L Total Protein 7.2 (6.3-8.2) g/dL Albumin 3.7 L (3.9-5) g/dL Albumin/Globulin Ratio 1.1 % HCG, Quant < 2 (0-4) mIU/mL 06/25/19 Range/Units Unknown WBC (4.5-11.0) K/mm3 RBC (3.65-5.03) M/mm3 Hgb (10.1-14.3) gm/dl Hct (30.3-42.9) % MCV (79-97) fl MCH (28-32) pg MCHC (30-34) % RDW (13.2-15.2) % Plt Count (140-440) K/mm3 Lymph % (Auto) (13.4-35.0) % [place] % (Auto) (0.0-7.3) % Eos % (Auto) (0.0-4.3) % Baso % (Auto) (0.0-1.8) % Lymph # (1.2-5.4) K/mm3 [place] # (0.0-0.8) K/mm3 Eos # (0.0-0.4) K/mm3 Baso # (0.0-0.1) K/mm3 Seg Neutrophils % (40.0-70.0) % Seg Neutrophils # (1.8-7.7) K/mm3 Percent Retic (0.78-2.58) % Sodium (137-145) mmol/L Potassium (3.6-5.0) mmol/L Chloride (98-107) mmol/L Carbon Dioxide (22-30) mmol/L Anion Gap mmol/L BUN (7-17) mg/dL Creatinine (0.7-1.2) mg/dL Estimated GFR ml/min BUN/Creatinine Ratio % Glucose (65-100) mg/dL Calcium (8.4-10.2) mg/dL Total Bilirubin (0.1-1.2) mg/dL AST (5-40) units/L ALT (7-56) units/L Alkaline Phosphatase (35-129) units/L Lactate Dehydrogenase 350 H (91-180) units/L Total Protein (6.3-8.2) g/dL Albumin (3.9-5) g/dL Albumin/Globulin Ratio % HCG, Quant (0-4) mIU/mL - Medical Decision Making Patient had improvement of her symptoms with IV Dilaudid And takes methadone and Percocet at home and instructed to continue her pain medication regimen White count is likely secondary to acute stress reaction Critical care attestation.: If time is entered above; I have spent that time in minutes in the direct care of this critically ill patient, excluding procedure time. ED Disposition Clinical Impression: Sickle cell pain crisis Disposition: TO HOME OR SELFCARE Is pt being admited?: No Does the pt Need Aspirin: No Condition: Stable Instructions: Sickle Cell Crisis (ED) Additional Instructions: return if worse Referrals: PRIMARY CARE,MD [Primary Care Provider] - 3-5 Days [facility] [Provider Group] - 3-5 Days [facility] [Provider Group] - 3-5 Days Time of Disposition: 12:27
[2019-06-25] MEDS ORDERED: FLUSH HEPARIN IV ONE ×2 (12:37→12:53)
[2019-06-25 12:53] VITALS: BP 165/95
== END 2019-06-25 12:55 | disposition home or self-care (01) ==
LOC: ED 08:36
DX: D57.00 Hb-SS disease with crisis, unspecified (principal); I10 Essential (primary) hypertension; M19.90 Unspecified osteoarthritis, unspecified site; J45.909 Unspecified asthma, uncomplicated; G89.29 Other chronic pain
CPT/HCPCS: 36415; 80053; 83615; 84702; 85025; 85045; 96374; 96375; 96376; 99283; J1170; J1642; J2405; J7030; Q0163

== ENCOUNTER 2019-06-28 09:16 | Inpatient (IN) | payer MEDICAID ==
[2019-06-28] MEDS ORDERED: ZOFRAN IV ONE (10:21)
[2019-06-28] MEDS ORDERED: DILAUDID IV ONE ×4 (10:21→13:28)
[2019-06-28] MEDS ORDERED: BENADRYL IV ONE ×2 (10:21→12:13)
--- NOTE | 2019-06-28 10:30 | Emergency Department Report ---
ED General Adult HPI - General Chief complaint: Sickle Cell Crisis Stated complaint: SICKLE CELL PAIN Time Seen by Provider: 06/28/19 10:06 Source: patient Mode of arrival: Ambulatory Limitations: No Limitations - History of Present Illness Initial comments: This is an opioid dependent and 33-year-old sickle cell patient presenting here for the fourth time this month. When asked if she is in chronic pain management she states "no one has ever told me that I need that". She presents today stating that both her legs are hurting and her flank bilaterally as well. She reports no difficulty in urinating no fever no chills. She states that she gets her medication from Dr. Torres her applications developer. -: days(s) Location: back, lower extremity Radiation: non-radiation Quality: aching Consistency: constant Improves with: none Worsens with: none Associated Symptoms: denies other symptoms Treatments Prior to Arrival: other (methadone and Percocet) - Related Data Home Medications Medication Instructions Recorded Confirmed Last Taken Hydroxyurea [Hydrea] 500 mg PO DAILY 03/19/19 06/28/19 06/28/19 08:45 Methadone [Dolophine] 10 mg PO BID 03/19/19 06/28/19 06/28/19 08:45 cloNIDine [Catapres] 0.2 mg PO BID 03/19/19 06/28/19 06/28/19 08:45 Previous Rx's Medication Instructions Recorded Last Taken Type Folic Acid [Folvite] 1 mg PO DAILY #30 tablet 07/29/16 06/28/19 08:45 Rx Lisinopril [Zestril TAB] 40 mg PO QDAY #30 tablet 12/02/16 06/28/19 08:45 Rx amLODIPine [Norvasc] 10 mg PO QDAY #30 tablet 12/02/16 06/28/19 08:45 Rx Acetaminophen [Non-Aspirin Extra 500 mg PO Q6HR PRN #30 tablet 06/02/19 Unknown Rx Strength] Ibuprofen [Motrin] 600 mg PO Q8H PRN #30 tablet 06/02/19 06/28/19 08:45 Rx Ondansetron [Zofran Odt] 4 mg PO Q8HR PRN #20 tab.rapdis 06/02/19 Unknown Rx Oxycodone HCl/Acetaminophen 1 each PO Q12H PRN #6 tablet 06/02/19 06/28/19 08:45 Rx [Percocet 10/325 mg] Allergies Allergy/AdvReac Type Severity Reaction Status Date / Time morphine Allergy Shortness Verified 06/25/19 08:38 of Breath ED Review of Systems ROS: Stated complaint: SICKLE CELL PAIN Other details as noted in HPI Constitutional: denies: chills, fever Eyes: denies: eye pain, eye discharge, vision change ENT: denies: ear pain, throat pain Respiratory: denies: cough, shortness of breath, wheezing Cardiovascular: denies: chest pain, palpitations Endocrine: no symptoms reported Gastrointestinal: denies: abdominal pain, nausea, diarrhea Genitourinary: denies: urgency, dysuria, discharge Musculoskeletal: as per HPI, back pain. denies: joint swelling, arthralgia Skin: denies: rash, lesions Neurological: denies: headache, weakness, paresthesias Psychiatric: denies: anxiety, depression Hematological/Lymphatic: denies: easy bleeding, easy bruising ED Past Medical Hx - Past Medical History Previous Medical History?: Yes Hx Hypertension: Yes Hx Heart Attack/AMI: No Hx Congestive Heart Failure: No Hx Diabetes: No Hx Sickle Cell Disease: Yes Hx Arthritis: Yes Hx Asthma: Yes Hx COPD: No Hx HIV: No Additional medical history: ANEMIA, multiple port infections - Surgical History Past Surgical History?: Yes Hx Cholecystectomy: Yes Additional Surgical History: , port removed June 2014. PICC line left upper arm (11/19/2014). . - Social History Smoking Status: Never Smoker Substance Use Type: None - Medications Home Medications: Home Medications Medication Instructions Recorded Confirmed Last Taken Type Folic Acid [Folvite] 1 mg PO DAILY #30 tablet 07/29/16 06/28/19 06/28/19 08:45 Rx Lisinopril [Zestril TAB] 40 mg PO QDAY #30 tablet 12/02/16 06/28/19 06/28/19 08:45 Rx amLODIPine [Norvasc] 10 mg PO QDAY #30 tablet 12/02/16 06/28/19 06/28/19 08:45 Rx Hydroxyurea [Hydrea] 500 mg PO DAILY 03/19/19 06/28/19 06/28/19 08:45 History Methadone [Dolophine] 10 mg PO BID 03/19/19 06/28/19 06/28/19 08:45 History cloNIDine [Catapres] 0.2 mg PO BID 03/19/19 06/28/19 06/28/19 08:45 History Acetaminophen [Non-Aspirin Extra 500 mg PO Q6HR PRN #30 tablet 06/02/19 06/28/19 Unknown Rx Strength] Ibuprofen [Motrin] 600 mg PO Q8H PRN #30 tablet 06/02/19 06/28/19 06/28/19 08:45 Rx Ondansetron [Zofran Odt] 4 mg PO Q8HR PRN #20 tab.rapdis 06/02/19 06/28/19 Unknown Rx Oxycodone HCl/Acetaminophen 1 each PO Q12H PRN #6 tablet 06/02/19 06/28/19 06/28/19 08:45 Rx [Percocet 10/325 mg] ED Physical Exam - General Limitations: No Limitations General appearance: alert, in no apparent distress, obese - Head Head exam: Present: atraumatic, normocephalic - Eye Eye exam: Present: normal appearance. Absent: scleral icterus - ENT ENT exam: Present: mucous membranes moist - Neck Neck exam: Present: normal inspection - Respiratory Respiratory exam: Present: normal lung sounds bilaterally. Absent: respiratory distress - Cardiovascular Cardiovascular Exam: Present: regular rate, normal rhythm. Absent: systolic murmur, diastolic murmur, rubs, gallop - GI/Abdominal GI/Abdominal exam: Present: soft, normal bowel sounds. Absent: distended, tenderness, guarding, rebound, rigid - Extremities Exam Extremities exam: Present: normal inspection, normal capillary refill. Absent: pedal edema, joint swelling, calf tenderness - Back Exam Back exam: Present: normal inspection. Absent: CVA tenderness (R), CVA tenderness (L) - Neurological Exam Neurological exam: Present: alert, oriented X3, CN II-XII intact. Absent: motor sensory deficit - Psychiatric Psychiatric exam: Present: normal affect, normal mood - Skin Skin exam: Present: warm, dry, intact, normal color. Absent: rash ED Course Vital Signs 06/28/19 06/28/19 09:23 10:00 Temperature 99.0 F 99.1 F Pulse Rate 100 H 96 H Respiratory 22 20 Rate Blood Pressure 177/99 Blood Pressure 175/103 [Right] O2 Sat by Pulse 100 97 Oximetry - Reevaluation(s) Reevaluation #1: Patient is resting comfortably in the gurney in no apparent distress despite her stated pain level of 10 out of 10. Although she states that she has never been referred to chronic pain management, I have seen her and suggested this to her several times previously. This is her fourth visit here this month. I will place a case management consultation. 06/28/19 10:29 Reevaluation #2: Anus persistent. Patient is agreeable to hospitalization. She has a higher white blood cell count and I have seen recently. Her lactic acid is normal. She is referred to the hospitalist service. 06/28/19 13:22 ED Medical Decision Making - Lab Data Result diagrams: 06/28/19 10:35 06/28/19 10:35 Laboratory Results - last 24 hr 06/28/19 06/28/19 10:55 10:55 Urine HCG, Qual Negative Urine Opiates Screen Presumptive negative Urine Methadone Screen Presumptive negative Ur Barbiturates Screen Presumptive negative Ur Phencyclidine Scrn Presumptive negative Ur Amphetamines Screen Presumptive negative U Benzodiazepines Scrn Presumptive negative Urine Cocaine Screen Presumptive negative U Marijuana (THC) Screen Presumptive negative Laboratory Results - last 24 hr 06/28/19 06/28/19 06/28/19 10:35 10:35 10:35 WBC 20.9 H RBC 2.64 L Hgb 8.0 L Hct 23.0 L MCV 87 MCH 30 MCHC 35 H RDW 21.0 H Plt Count 536 H Percent Retic 9.26 H Sodium 140 Potassium 4.3 Chloride 104.1 Carbon Dioxide 24 Anion Gap 16 BUN 8 Creatinine 0.7 Estimated GFR > 60 BUN/Creatinine Ratio 11 Glucose 111 H Lactic Acid 0.70 Calcium 9.3 Urine Color Urine Turbidity Urine pH Ur Specific [place] Urine Protein Urine Glucose (UA) Urine Ketones Urine Blood Urine Nitrite Ur Reducing Substances Urine Bilirubin Urine Ictotest Urine Urobilinogen Ur Leukocyte Esterase Urine WBC (Auto) Urine RBC (Auto) U Epithel Cells (Auto) Urine Bacteria (Auto) Urine WBC Clumps Ur Transition Epith Cell Ur Renal Epithelial Cell Calcium Carbonate Cryst Calcium Phosphate Cryst Calcium Oxalate Crystal Cystine Crystals Uric Acid Crystals Triple Phos Crystals Tyrosine Crystals Other Crystals Amorphous Crystals Epithelial Casts Fatty Casts Hyaline Casts Granular Casts Waxy Casts Broad Casts RBC Casts WBC Casts Other Casts Urine Mucus Urine Trichomonas Ur Yeast w Hyphae Urine Yeast (Budding) Urine Sperm Urine HCG, Qual Urine Opiates Screen Urine Methadone Screen Ur Barbiturates Screen Ur Phencyclidine Scrn Ur Amphetamines Screen U Benzodiazepines Scrn Urine Cocaine Screen U Marijuana (THC) Screen Drugs of Abuse Note 06/28/19 06/28/19 10:55 10:55 WBC RBC Hgb Hct MCV MCH MCHC RDW Plt Count Percent Retic Sodium Potassium Chloride Carbon Dioxide Anion Gap BUN Creatinine Estimated GFR BUN/Creatinine Ratio Glucose Lactic Acid Calcium Urine Color Cancelled Urine Turbidity Cancelled Urine pH Cancelled Ur Specific [place] Cancelled Urine Protein Cancelled Urine Glucose (UA) Cancelled Urine Ketones Cancelled Urine Blood Cancelled Urine Nitrite Cancelled Ur Reducing Substances Cancelled Urine Bilirubin Cancelled Urine Ictotest Cancelled Urine Urobilinogen Cancelled Ur Leukocyte Esterase Cancelled Urine WBC (Auto) Cancelled Urine RBC (Auto) Cancelled U Epithel Cells (Auto) Cancelled Urine Bacteria (Auto) Cancelled Urine WBC Clumps Cancelled Ur Transition Epith Cell Cancelled Ur Renal Epithelial Cell Cancelled Calcium Carbonate Cryst Cancelled Calcium Phosphate Cryst Cancelled Calcium Oxalate Crystal Cancelled Cystine Crystals Cancelled Uric Acid Crystals Cancelled Triple Phos Crystals Cancelled Tyrosine Crystals Cancelled Other Crystals Cancelled Amorphous Crystals Cancelled Epithelial Casts Cancelled Fatty Casts Cancelled Hyaline Casts Cancelled Granular Casts Cancelled Waxy Casts Cancelled Broad Casts Cancelled RBC Casts Cancelled WBC Casts Cancelled Other Casts Cancelled Urine Mucus Cancelled Urine Trichomonas Cancelled Ur Yeast w Hyphae Cancelled Urine Yeast (Budding) Cancelled Urine Sperm Cancelled Urine HCG, Qual Negative Urine Opiates Screen Presumptive negative Urine Methadone Screen Presumptive negative Ur Barbiturates Screen Presumptive negative Ur Phencyclidine Scrn Presumptive negative Ur Amphetamines Screen Presumptive negative U Benzodiazepines Scrn Presumptive negative Urine Cocaine Screen Presumptive negative U Marijuana (THC) Screen Presumptive negative Drugs of Abuse Note Disclamer Laboratory Results - last 24 hr 06/28/19 06/28/19 06/28/19 10:35 10:35 10:35 WBC 20.9 H RBC 2.64 L Hgb 8.0 L Hct 23.0 L MCV 87 MCH 30 MCHC 35 H RDW 21.0 H Plt Count 536 H WBC Morphology Percent Retic 9.26 H Sodium 140 Potassium 4.3 Chloride 104.1 Carbon Dioxide 24 Anion Gap 16 BUN 8 Creatinine 0.7 Estimated GFR > 60 BUN/Creatinine Ratio 11 Glucose 111 H Lactic Acid 0.70 Calcium 9.3 Urine Color Urine Turbidity Urine pH Ur Specific [place] Urine Protein Urine Glucose (UA) Urine Ketones Urine Blood Urine Nitrite Ur Reducing Substances Urine Bilirubin Urine Ictotest Urine Urobilinogen Ur Leukocyte Esterase Urine WBC (Auto) Urine RBC (Auto) U Epithel Cells (Auto) Urine Bacteria (Auto) Urine WBC Clumps Ur Transition Epith Cell Ur Renal Epithelial Cell Calcium Carbonate Cryst Calcium Phosphate Cryst Calcium Oxalate Crystal Cystine Crystals Uric Acid Crystals Triple Phos Crystals Tyrosine Crystals Other Crystals Amorphous Crystals Epithelial Casts Fatty Casts Hyaline Casts Granular Casts Waxy Casts Broad Casts RBC Casts WBC Casts Other Casts Urine Mucus Urine Trichomonas Ur Yeast w Hyphae Urine Yeast (Budding) Urine Sperm Urine HCG, Qual Urine Opiates Screen Urine Methadone Screen Ur Barbiturates Screen Ur Phencyclidine Scrn Ur Amphetamines Screen U Benzodiazepines Scrn Urine Cocaine Screen U Marijuana (THC) Screen Drugs of Abuse Note 06/28/19 06/28/19 06/28/19 10:35 10:55 10:55 WBC RBC Hgb Hct MCV MCH MCHC RDW Plt Count WBC Morphology TNR Percent Retic Sodium Potassium Chloride Carbon Dioxide Anion Gap BUN Creatinine Estimated GFR BUN/Creatinine Ratio Glucose Lactic Acid Calcium Urine Color Cancelled Urine Turbidity Cancelled Urine pH Cancelled Ur Specific [place] Cancelled Urine Protein Cancelled Urine Glucose (UA) Cancelled Urine Ketones Cancelled Urine Blood Cancelled Urine Nitrite Cancelled Ur Reducing Substances Cancelled Urine Bilirubin Cancelled Urine Ictotest Cancelled Urine Urobilinogen Cancelled Ur Leukocyte Esterase Cancelled Urine WBC (Auto) Cancelled Urine RBC (Auto) Cancelled U Epithel Cells (Auto) Cancelled Urine Bacteria (Auto) Cancelled Urine WBC Clumps Cancelled Ur Transition Epith Cell Cancelled Ur Renal Epithelial Cell Cancelled Calcium Carbonate Cryst Cancelled Calcium Phosphate Cryst Cancelled Calcium Oxalate Crystal Cancelled Cystine Crystals Cancelled Uric Acid Crystals Cancelled Triple Phos Crystals Cancelled Tyrosine Crystals Cancelled Other Crystals Cancelled Amorphous Crystals Cancelled Epithelial Casts Cancelled Fatty Casts Cancelled Hyaline Casts Cancelled Granular Casts Cancelled Waxy Casts Cancelled Broad Casts Cancelled RBC Casts Cancelled WBC Casts Cancelled Other Casts Cancelled Urine Mucus Cancelled Urine Trichomonas Cancelled Ur Yeast w Hyphae Cancelled Urine Yeast (Budding) Cancelled Urine Sperm Cancelled Urine HCG, Qual Negative Urine Opiates Screen Presumptive negative Urine Methadone Screen Presumptive negative Ur Barbiturates Screen Presumptive negative Ur Phencyclidine Scrn Presumptive negative Ur Amphetamines Screen Presumptive negative U Benzodiazepines Scrn Presumptive negative Urine Cocaine Screen Presumptive negative U Marijuana (THC) Screen Presumptive negative Drugs of Abuse Note Disclamer Critical care attestation.: If time is entered above; I have spent that time in minutes in the direct care of this critically ill patient, excluding procedure time. ED Disposition Clinical Impression: Sickle cell crisis Leukocytosis Qualifiers: Leukocytosis type: unspecified Qualified Code(s): D72.829 - Elevated white blood cell count, unspecified Disposition: [id number]-09 OP ADMIT IP TO THIS HOSP Is pt being admited?: Yes Does the pt Need Aspirin: Yes Condition: Stable Referrals: FRANK ACOSTA MD [Primary Care Provider] - 3-5 Days Time of Disposition: 13:23
[2019-06-28 11:24] LABS: HCG Qualitative,Urine Negative (Negative)
[2019-06-28] MEDS: D5NS 0.2% 1,000 ML IV SCH ×2 (11:28→16:05)
[2019-06-28 11:40] LABS: Amphetamine Screen,Urine PRESUMPTIVE NEGATIVE; Benzodiazepines Screen,Urine PRESUMPTIVE NEGATIVE; Cannabinoid Screen,Urine PRESUMPTIVE NEGATIVE; Cocaine Screen,Urine PRESUMPTIVE NEGATIVE; Methadone Screen,Urine PRESUMPTIVE NEGATIVE; Opiate Screen,Urine PRESUMPTIVE NEGATIVE
[2019-06-28 11:47] LABS: Mean Corpuscular HGB Conc 35 % (30-34); Mean Corpuscular Volume 87 fl (79-97); Platelet Count 536 K/mm3 (140-440); Red Blood Count 2.64 M/mm3 (3.65-5.03)
[2019-06-28 12:03] LABS: BUN/Creatinine Ratio 11; Blood Urea Nitrogen 8 mg/dL (7-17); Calcium 9.3 mg/dL (8.4-10.2); Hemolysis Index 12
[2019-06-28 13:22] LABS: Band Neutrophils # (Manual) 0.4 K/mm3; Basophils % (Manual) 0 % (0.0-1.8); Monocytes % (Manual) 0 % (0.0-7.3); Total Cells Counted 100
[2019-06-28 13:23] LABS: Anisocytosis 1+; Sickle Cells 1+; Target Cells Few
[2019-06-28] MEDS ORDERED: BABY ASPIRIN PO ONE (13:24)
--- NOTE | 2019-06-28 13:42 | History and Physical Report ---
History of Present Illness Chief complaint: Im just hurting History of present illness: 33 YO Female with SCD, HTN, OA, Asthma, Narcotic Abuse presents to ED for evaluation. Pt states that she has experienced pain "all over her body" but mostly in the Back,Side and Legs. Pt states that pain is 10/10, constant. Pt states that her pain is not relieved with percocet and Methadone. Pt transported to [facility] via private vehicle. Pt seen and evaluated in ED. Pt denies fever, chills, CP, palpitations, shortness of breath, skin rash, hemoptysis, or recent ill contacts. Pt seen and evaluated in ED and found to have SCD Crisis and treated with IVF resuscitation and supportive care. Pt also found to have evidence of sepsis. Pt initiated on sepsis protocol and admitted to medical floor. Prior admission on 05/23/19 reviewed. All listed medication reconciled at time of admission. Past History Past Medical History: arthritis, hypertension, other (SCD, Asthma) Past Surgical History: cholecystectomy, Other (PICC Line, Port Placement) Social history: single, prescription drug abuse. denies: smoking, alcohol abuse Family history: hypertension, other (SCD) Medications and Allergies Allergies Allergy/AdvReac Type Severity Reaction Status Date / Time morphine Allergy Shortness Verified 06/25/19 08:38 of Breath Home Medications Medication Instructions Recorded Confirmed Last Taken Type Folic Acid [Folvite] 1 mg PO DAILY #30 tablet 07/29/16 06/28/19 06/28/19 08:45 Rx Lisinopril [Zestril TAB] 40 mg PO QDAY #30 tablet 12/02/16 06/28/19 06/28/19 08:45 Rx amLODIPine [Norvasc] 10 mg PO QDAY #30 tablet 12/02/16 06/28/19 06/28/19 08:45 Rx Hydroxyurea [Hydrea] 500 mg PO DAILY 03/19/19 06/28/19 06/28/19 08:45 History Methadone [Dolophine] 10 mg PO BID 03/19/19 06/28/19 06/28/19 08:45 History cloNIDine [Catapres] 0.2 mg PO BID 03/19/19 06/28/19 06/28/19 08:45 History Acetaminophen [Non-Aspirin Extra 500 mg PO Q6HR PRN #30 tablet 06/02/19 06/28/19 Unknown Rx Strength] Ibuprofen [Motrin] 600 mg PO Q8H PRN #30 tablet 06/02/19 06/28/19 06/28/19 08:45 Rx Ondansetron [Zofran Odt] 4 mg PO Q8HR PRN #20 tab.rapdis 06/02/19 06/28/19 Unknown Rx Oxycodone HCl/Acetaminophen 1 each PO Q12H PRN #6 tablet 06/02/19 06/28/19 06/28/19 08:45 Rx [Percocet 10/325 mg] Active Meds: Active Medications Dextrose/Sodium Chloride (D5ns 0.2%) 1,000 mls @ 250 mls/hr IV DIRECT CARIE Last Admin: 06/28/19 11:28 Dose: 250 mls/hr Documented by: Review of Systems Constitutional: chronic pain, no weight loss, no weight gain, no fever, no chills Ears, nose, mouth and throat: no ear pain, no ear discharge, no tinnitis, no decreased hearing, no nose pain, no nasal congestion Breasts: no change in shape, no swelling, no mass Cardiovascular: no chest pain, no orthopnea, no palpitations, no rapid/irregular heart beat, no edema, no lightheadedness, no shortness of breath Respiratory: no cough, no cough with sputum, no excessive sputum, no hemoptysis, no shortness of breath, no dyspnea on exertion Gastrointestinal: no abdominal pain, no nausea, no vomiting, no diarrhea, no constipation, no change in bowel habits Genitourinary Female: no dysuria, no urinary frequency, no urgency Rectal: no incontinence, no bleeding Musculoskeletal: no neck pain, no low back pain Integumentary: no rash, no redness, no sores, no wounds, no jaundice Neurological: no transient paralysis, no paralysis, no weakness, no parathesias, no numbness, no tingling Psychiatric: no anxiety, no memory loss, no insomnia, no change in appetite, no change in libido Endocrine: no cold intolerance, no heat intolerance, no polyphagia, no excessive thirst, no polydipsia, no polyuria Hematologic/Lymphatic: no easy bruising, no easy bleeding, no lymphadenopathy Allergic/Immunologic: no urticaria, no wheezing, no persistent infections, no angioedema Exam - Constitutional Vitals: Temp Pulse Resp BP Pulse Ox 99.1 F 96 H 20 175/103 97 06/28/19 10:00 06/28/19 10:00 06/28/19 10:00 06/28/19 10:00 06/28/19 10:00 General appearance: Present: mild distress, obese - EENT Eyes: Present: PERRL ENT: hearing intact, clear oral mucosa - Neck Neck: Present: supple, normal ROM - Respiratory Respiratory effort: normal Respiratory: bilateral: CTA - Cardiovascular Heart Sounds: Present: S1 & S2. Absent: rub, click - Extremities Extremities: pulses symmetrical, No edema Peripheral Pulses: within normal limits - Abdominal General gastrointestinal: Present: soft, non-tender, non-distended, normal bowel sounds Female genitourinary: Present: normal - Integumentary Integumentary: Present: clear, warm, dry - Musculoskeletal Musculoskeletal: gait normal, strength equal bilaterally - Psychiatric Psychiatric: appropriate mood/affect, intact judgment & insight - Neurologic Neurologic: CNII-XII intact, moves all extremities Results - Labs CBC & Chem 7: 06/28/19 10:35 06/28/19 10:35 Labs: Abnormal lab results 06/28/19 06/28/19 Range/Units 10:35 10:35 WBC 20.9 H (4.5-11.0) K/mm3 RBC 2.64 L (3.65-5.03) M/mm3 Hgb 8.0 L (10.1-14.3) gm/dl Hct 23.0 L (30.3-42.9) % MCHC 35 H (30-34) % RDW 21.0 H (13.2-15.2) % Plt Count 536 H (140-440) K/mm3 Seg Neuts % (Manual) 83.0 H (40.0-70.0) % Lymphocytes % (Manual) 13.0 L (13.4-35.0) % Seg Neutrophils # Man 17.3 H (1.8-7.7) K/mm3 Percent Retic 9.26 H (0.78-2.58) % Glucose 111 H (65-100) mg/dL Assessment and Plan - Patient Problems (1) Sickle cell anemia with crisis Current Visit: Yes Status: Acute (2) Sepsis Current Visit: No Status: Acute Qualifiers: Sepsis type: sepsis due to unspecified organism Qualified Code(s): A41.9 - Sepsis, unspecified organism Plan to address problem: Sepsis protocol: IV antibiotic therapy, IVF resuscitation therapy, monitor uop q shift, chest x ray, blood cultures, urinalysis, serial lactic acid level (3) HTN (hypertension) Current Visit: Yes Status: Acute Qualifiers: Hypertension type: essential hypertension Qualified Code(s): I10 - Essential (primary) hypertension Plan to address problem: Monitor BP q shift, continue medical management, pain control, (4) Anemia, sickle cell with crisis Onset Date: 07/01/16 Current Visit: No Status: Acute Plan to address problem: IVF resuscitation, pain control, continue prehospital medication. CBC, CMP, Retic count, Outpatient Hematology F/U care, (5) Chronic pain syndrome Current Visit: Yes Status: Acute Plan to address problem: Pain control, Outpatient pain clinic F/U care, review pain mediation contract. (6) Anemia Current Visit: Yes Status: Acute Plan to address problem: No transfusion at this time, supportive care. (7) DVT prophylaxis Current Visit: Yes Status: Acute Plan to address problem: SCD to BLE, Pt ambulatory
[2019-06-28] MEDS ORDERED: TYLENOL PO PRN ×2 (13:44→13:46)
[2019-06-28] MEDS ORDERED: SODIUM CHLORIDE FLUSH SYRINGE 10 ML IV PRN (13:44)
[2019-06-28] MEDS ORDERED: NACL 0.9% 1000 ML IV ONE (13:44)
[2019-06-28] MEDS ORDERED: PROVENTIL IH PRN (13:44)
[2019-06-28] MEDS ORDERED: PERCOCET 5/325 PO PRN ×3 (13:44→14:12)
[2019-06-28] MEDS ORDERED: ZOFRAN IV PRN (13:44)
[2019-06-28] MEDS ORDERED: ZOFRAN ODT PO PRN (13:46)
[2019-06-28] MEDS ORDERED: NON-FORMULARY (Oxycodone Hcl/Acetaminophen [Percocet 10/325 Mg] 1 EACH) PO PRN (13:46)
[2019-06-28] MEDS ORDERED: IBUPROFEN PO PRN (13:46)
[2019-06-28] MEDS ORDERED: ROXICODONE PO PRN (14:10)
[2019-06-28] MEDS ORDERED: NACL 0.9% 1000 ML 1,000 ML ONE (14:24)
--- NOTE | 2019-06-28 14:47 | XRay Report ---
CHEST 1 VIEW 06/28/2019 1:43 PM INDICATION / CLINICAL INFORMATION: cough. COMPARISON: 2 views of the chest from 06/16/2019. FINDINGS: SUPPORT DEVICES: Stable positioning of the left IJV Port-A-Cath. HEART / MEDIASTINUM: Stable. LUNGS / PLEURA: No significant pulmonary or pleural abnormality. No pneumothorax. ADDITIONAL FINDINGS: No significant additional findings. IMPRESSION: 1. No acute abnormality of the chest. 2. Stable cardiomegaly. Signer Name: Dimitri Humphreys MD Signed: 06/28/2019 2:42 PM Workstation Name: [id number]
[2019-06-28 15:16] VITALS: BP 167/90
[2019-06-28] MEDS ORDERED: FLUSH HEPARIN IV ONE (18:10)
[2019-06-28] MEDS ORDERED: TRIPLE ANTIBIOTIC TP ONE (18:11)
[2019-06-28] MEDS ORDERED: SODIUM CHLORIDE FLUSH SYRINGE 10 ML IV SCH (22:00)
[2019-06-28] MEDS ORDERED: DOLOPHINE PO SCH (22:00)
[2019-06-28] MEDS ORDERED: CATAPRES PO SCH (22:00)
[2019-06-29] MEDS ORDERED: ZESTRIL PO SCH (10:00)
[2019-06-29] MEDS ORDERED: HYDREA PO SCH (10:00)
[2019-06-29] MEDS ORDERED: NORVASC PO SCH (10:00)
[2019-06-29] MEDS ORDERED: ROCEPHIN/NS 2 GM/100 ML 2 GM/100 ML BAG IV SCH (10:00)
[2019-06-29] MEDS ORDERED: FOLVITE PO SCH (10:00)
== END 2019-06-28 18:00 | disposition left against medical advice (07) | DRG 871 ==
LOC: ED 09:16 → 3A 13:44
PROVIDERS: ADMIT Internal Medicine; ATTEND Internal Medicine
DX: A41.9 Sepsis, unspecified organism (principal); D57.00 Hb-SS disease with crisis, unspecified; I10 Essential (primary) hypertension; M19.90 Unspecified osteoarthritis, unspecified site; J45.909 Unspecified asthma, uncomplicated; F19.10 Other psychoactive substance abuse, uncomplicated; G89.4 Chronic pain syndrome; Z90.49 Acquired absence of other specified parts of digestive tract; Z82.49 Family history of ischemic heart disease and other diseases of the circulatory system; Z88.5 Allergy status to narcotic agent; Z79.899 Other long term (current) drug therapy
CPT/HCPCS: 36415; 71045; 80048; 80307; 81025; 82140; 85007; 85025; 85045; 87040; 96374; 96375; 96376; G0378; A6250; J0696; J1170; J1200; J1642; J2405; J7030

== ENCOUNTER 2019-07-21 08:44 | Emergency (ER) | payer MEDICAID ==
[2019-07-21 09:28] VITALS: BP 199/99
== END 2019-07-21 12:20 | disposition left against medical advice (07) ==
LOC: ED 08:44
DX: M79.10 Myalgia, unspecified site (principal); Z53.21 Procedure and treatment not carried out due to patient leaving prior to being seen by health care provider

== ENCOUNTER 2019-08-03 09:09 | Emergency (ER) | payer MEDICAID ==
[2019-08-03] MEDS ORDERED: ONDANSETRON 4 MG/2 ML INJ IV ONE (10:48)
[2019-08-03] MEDS ORDERED: KETOROLAC 30 MG/1 ML INJ IV ONE (10:48)
[2019-08-03] MEDS ORDERED: diphenhydrAMINE 50 MG/ML VIAL IV ONE ×2 (10:48→12:43)
[2019-08-03] MEDS ORDERED: SODIUM CHLORIDE 0.9% 1000 ML 1,000 ML IV ONE (10:48)
[2019-08-03] MEDS ORDERED: HYDROmorphone 2 MG/1 ML INJ IV ONE (10:49)
[2019-08-03 10:53] LABS: Hematocrit 26.4 % (30.3-42.9); Hemoglobin 8.6 gm/dl (10.1-14.3); Mean Corpuscular HGB Conc 33 % (30-34); Mean Corpuscular Volume 93 fl (79-97); Platelet Count 456 K/mm3 (140-440); Red Blood Count 2.82 M/mm3 (3.65-5.03)
[2019-08-03 11:01] LABS: Red Cell Distribution Width 24.3 % (13.2-15.2)
[2019-08-03 11:03] LABS: BUN/Creatinine Ratio 13; Blood Urea Nitrogen 9 mg/dL (7-17); Calcium 8.5 mg/dL (8.4-10.2); Hemolysis Index 12
--- NOTE | 2019-08-03 11:41 | Emergency Department Report ---
ED General Adult HPI - General Chief complaint: Sickle Cell Crisis Stated complaint: SICKLE CELL CRISIS Time Seen by Provider: 08/03/19 10:30 Source: patient Mode of arrival: Ambulatory Limitations: No Limitations - History of Present Illness Initial comments: 33-year-old female with history of sickle cell disease presents to ED with pain crisis. Patient reports pain to his lower back, bilateral lower extremities. Patient states this is typical of her usual sickle cell crisis pain. Patient reports no relief with Percocet and methadone at home -: days(s) (3) Location: back, left, right, lower extremity Severity scale (0 -10): 6 Quality: aching Consistency: constant Improves with: none Worsens with: none Associated Symptoms: denies other symptoms. denies: chest pain, cough, fever/chills, shortness of breath - Related Data Home Medications Medication Instructions Recorded Confirmed Last Taken Hydroxyurea [Hydrea] 500 mg PO DAILY 03/19/19 06/28/19 06/28/19 08:45 Methadone [Dolophine] 10 mg PO BID 03/19/19 06/28/19 06/28/19 08:45 cloNIDine [Catapres] 0.2 mg PO BID 03/19/19 06/28/19 06/28/19 08:45 Previous Rx's Medication Instructions Recorded Last Taken Type Folic Acid [Folvite] 1 mg PO DAILY #30 tablet 07/29/16 06/28/19 08:45 Rx Lisinopril [Zestril TAB] 40 mg PO QDAY #30 tablet 12/02/16 06/28/19 08:45 Rx amLODIPine [Norvasc] 10 mg PO QDAY #30 tablet 12/02/16 06/28/19 08:45 Rx Acetaminophen [Non-Aspirin Extra 500 mg PO Q6HR PRN #30 tablet 06/02/19 Unknown Rx Strength] Ibuprofen [Motrin] 600 mg PO Q8H PRN #30 tablet 06/02/19 06/28/19 08:45 Rx Ondansetron [Zofran Odt] 4 mg PO Q8HR PRN #20 tab.rapdis 06/02/19 Unknown Rx Oxycodone HCl/Acetaminophen 1 each PO Q12H PRN #6 tablet 06/02/19 06/28/19 08:45 Rx [Percocet 10/325 mg] Allergies Allergy/AdvReac Type Severity Reaction Status Date / Time morphine Allergy Shortness Verified 06/25/19 08:38 of Breath ED Review of Systems ROS: Stated complaint: SICKLE CELL CRISIS Other details as noted in HPI Comment: All other systems reviewed and negative Constitutional: denies: chills, fever Respiratory: denies: cough, shortness of breath Cardiovascular: denies: chest pain Musculoskeletal: as per HPI, back pain ED Past Medical Hx - Past Medical History Hx Hypertension: Yes Hx CVA: No Hx Heart Attack/AMI: No Hx Congestive Heart Failure: No Hx Diabetes: No Hx Sickle Cell Disease: Yes Hx Arthritis: Yes Hx Asthma: Yes Hx COPD: No Hx HIV: No Additional medical history: ANEMIA, multiple port infections - Surgical History Hx Cholecystectomy: Yes Additional Surgical History: , port removed June 2014. PICC line left upper arm (11/19/2014). . - Social History Smoking Status: Never Smoker Substance Use Type: None - Medications Home Medications: Home Medications Medication Instructions Recorded Confirmed Last Taken Type Folic Acid [Folvite] 1 mg PO DAILY #30 tablet 07/29/16 06/28/19 06/28/19 08:45 Rx Lisinopril [Zestril TAB] 40 mg PO QDAY #30 tablet 12/02/16 06/28/19 06/28/19 08:45 Rx amLODIPine [Norvasc] 10 mg PO QDAY #30 tablet 12/02/16 06/28/19 06/28/19 08:45 Rx Hydroxyurea [Hydrea] 500 mg PO DAILY 03/19/19 06/28/19 06/28/19 08:45 History Methadone [Dolophine] 10 mg PO BID 03/19/19 06/28/19 06/28/19 08:45 History cloNIDine [Catapres] 0.2 mg PO BID 03/19/19 06/28/19 06/28/19 08:45 History Acetaminophen [Non-Aspirin Extra 500 mg PO Q6HR PRN #30 tablet 06/02/19 06/28/19 Unknown Rx Strength] Ibuprofen [Motrin] 600 mg PO Q8H PRN #30 tablet 06/02/19 06/28/19 06/28/19 08:45 Rx Ondansetron [Zofran Odt] 4 mg PO Q8HR PRN #20 tab.rapdis 06/02/19 06/28/19 Unknown Rx Oxycodone HCl/Acetaminophen 1 each PO Q12H PRN #6 tablet 06/02/19 06/28/19 06/28/19 08:45 Rx [Percocet 10/325 mg] ED Physical Exam - General Limitations: No Limitations General appearance: alert, in no apparent distress - Head Head exam: Present: atraumatic, normocephalic - Eye Eye exam: Present: normal appearance - ENT ENT exam: Present: mucous membranes moist - Neck Neck exam: Present: normal inspection - Respiratory Respiratory exam: Present: normal lung sounds bilaterally. Absent: respiratory distress - Cardiovascular Cardiovascular Exam: Present: regular rate, normal rhythm - GI/Abdominal GI/Abdominal exam: Present: soft. Absent: distended - Extremities Exam Extremities exam: Present: normal inspection - Neurological Exam Neurological exam: Present: alert, oriented X3 - Psychiatric Psychiatric exam: Present: normal affect, normal mood - Skin Skin exam: Present: warm, dry, intact, normal color ED Course Vital Signs 08/03/19 08/03/19 09:11 12:30 Temperature 98.5 F Pulse Rate 96 H 94 H Respiratory 18 16 Rate Blood Pressure 200/85 Blood Pressure 159/76 [Left] O2 Sat by Pulse 97 96 Oximetry ED Medical Decision Making - Lab Data Result diagrams: 08/03/19 Unknown 08/03/19 Unknown - Medical Decision Making 33-year-old female sickle cell pain crisis. Patient is afebrile. No complaints of chest pain. Hemoglobin is 8.6 with reticulocyte count of 16. Patient given 3 doses of Dilaudid here in the ED with improvement of symptoms. 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 Return precautions given. - Differential Diagnosis sickle cell pain crisis Critical care attestation.: If time is entered above; I have spent that time in minutes in the direct care of this critically ill patient, excluding procedure time. ED Disposition Clinical Impression: Sickle cell pain crisis Disposition: -01 TO HOME OR SELFCARE Is pt being admited?: No Condition: Stable Instructions: Sickle Cell Crisis (ED) Referrals: SEMAJ FLYNN DO [Primary Care Provider] - 3-5 Days Time of Disposition: 12:44
[2019-08-03] MEDS ORDERED: HYDROmorphone 1 MG/1 ML INJ IV ONE ×2 (12:04→12:43)
[2019-08-03 12:05] LABS: Basophils % (Manual) 0 % (0.0-1.8); Giant Platelets Few; Total Cells Counted 100
[2019-08-03 12:06] LABS: Sickle Cells 1+; Target Cells 1+
[2019-08-03 12:07] LABS: Platelet Estimate Consistent w Auto
[2019-08-03 12:31] VITALS: BP 159/76
== END 2019-08-03 13:06 | disposition home or self-care (01) ==
LOC: ED 09:09
DX: D57.00 Hb-SS disease with crisis, unspecified (principal); M54.5 Low back pain; I10 Essential (primary) hypertension; M19.90 Unspecified osteoarthritis, unspecified site; J45.909 Unspecified asthma, uncomplicated; Z86.2 Personal history of diseases of the blood and blood-forming organs and certain disorders involving the immune mechanism; Z88.5 Allergy status to narcotic agent; Z79.1 Long term (current) use of non-steroidal anti-inflammatories (NSAID); Z79.899 Other long term (current) drug therapy; Z90.49 Acquired absence of other specified parts of digestive tract
CPT/HCPCS: 36415; 80048; 84703; 85007; 85025; 85045; 96374; 96375; 96376; 99283; J1170; J1200; J1642; J1885; J2405; J7030

== ENCOUNTER 2019-08-13 08:46 | Emergency (ER) | payer MEDICAID ==
[2019-08-13] MEDS ORDERED: SODIUM CHLORIDE 0.9% 1000 ML 1,000 ML IV ONE (08:55)
--- NOTE | 2019-08-13 10:03 | Emergency Department Report ---
ED General Adult HPI - General Chief complaint: Sickle Cell Crisis Stated complaint: SICKLE CELL CRISIS Time Seen by Provider: 08/13/19 09:27 Source: patient, RN notes reviewed, old records reviewed Mode of arrival: Ambulatory Limitations: No Limitations - History of Present Illness Initial comments: Hematology oncology: Dr. Keane This is a 34-year-old female. I evaluated this patient multiple times in the past. Past medical history includes sickle cell disease, left-sided port. Patient also has a history of hypertension, anemia, and chronic pain syndrome. Patient presents to the ER today with complaint of her typical sickle cell pain. The pain is in her bilateral paraspinal region, and bilateral anterior and lateral lower extremities. She does include cold weather, change of seasons and menstruation. Her menstruation started yesterday. She states that she is not . She states that she has not delivered a given within the past 6 weeks. Her pain is sharp and aching, throbbing, increases with palpation and decreases with rest. it alSo decreases with hydromorphone -: Gradual, hour(s) Location: back, left, right, lower extremity Quality: aching Consistency: other Improves with: other Worsens with: other - Related Data Home Medications Medication Instructions Recorded Confirmed Last Taken Hydroxyurea [Hydrea] 500 mg PO DAILY 03/19/19 06/28/19 06/28/19 08:45 Methadone [Dolophine] 10 mg PO BID 03/19/19 06/28/19 06/28/19 08:45 cloNIDine [Catapres] 0.2 mg PO BID 03/19/19 06/28/19 06/28/19 08:45 Previous Rx's Medication Instructions Recorded Last Taken Type Folic Acid [Folvite] 1 mg PO DAILY #30 tablet 07/29/16 06/28/19 08:45 Rx Lisinopril [Zestril TAB] 40 mg PO QDAY #30 tablet 12/02/16 06/28/19 08:45 Rx amLODIPine [Norvasc] 10 mg PO QDAY #30 tablet 12/02/16 06/28/19 08:45 Rx Acetaminophen [Non-Aspirin Extra 500 mg PO Q6HR PRN #30 tablet 06/02/19 Unknown Rx Strength] Ibuprofen [Motrin] 600 mg PO Q8H PRN #30 tablet 06/02/19 06/28/19 08:45 Rx Ondansetron [Zofran Odt] 4 mg PO Q8HR PRN #20 tab.rapdis 06/02/19 Unknown Rx Oxycodone HCl/Acetaminophen 1 each PO Q12H PRN #6 tablet 06/02/19 06/28/19 08:45 Rx [Percocet 10/325 mg] Allergies Allergy/AdvReac Type Severity Reaction Status Date / Time morphine Allergy Shortness Verified 06/25/19 08:38 of Breath ED Review of Systems ROS: Stated complaint: SICKLE CELL CRISIS Other details as noted in HPI Constitutional: malaise, weakness Eyes: denies: eye discharge ENT: denies: epistaxis Respiratory: denies: wheezing Cardiovascular: denies: syncope Gastrointestinal: nausea Genitourinary: denies: dysuria Musculoskeletal: back pain, arthralgia, myalgia Skin: denies: lesions Neurological: weakness Psychiatric: anxiety ED Past Medical Hx - Past Medical History Hx Hypertension: Yes Hx CVA: No Hx Heart Attack/AMI: No Hx Congestive Heart Failure: No Hx Diabetes: No Hx Sickle Cell Disease: Yes Hx Arthritis: Yes Hx Asthma: Yes Hx COPD: No Hx HIV: No Additional medical history: ANEMIA, multiple port infections - Surgical History Hx Cholecystectomy: Yes Additional Surgical History: , port removed June 2014. PICC line left upper arm (11/19/2014). . - Social History Smoking Status: Never Smoker Substance Use Type: None - Medications Home Medications: Home Medications Medication Instructions Recorded Confirmed Last Taken Type Folic Acid [Folvite] 1 mg PO DAILY #30 tablet 07/29/16 06/28/19 06/28/19 08:45 Rx Lisinopril [Zestril TAB] 40 mg PO QDAY #30 tablet 12/02/16 06/28/19 06/28/19 08:45 Rx amLODIPine [Norvasc] 10 mg PO QDAY #30 tablet 12/02/16 06/28/19 06/28/19 08:45 Rx Hydroxyurea [Hydrea] 500 mg PO DAILY 03/19/19 06/28/19 06/28/19 08:45 History Methadone [Dolophine] 10 mg PO BID 03/19/19 06/28/19 06/28/19 08:45 History cloNIDine [Catapres] 0.2 mg PO BID 03/19/19 06/28/19 06/28/19 08:45 History Acetaminophen [Non-Aspirin Extra 500 mg PO Q6HR PRN #30 tablet 06/02/19 06/28/19 Unknown Rx Strength] Ibuprofen [Motrin] 600 mg PO Q8H PRN #30 tablet 06/02/19 06/28/19 06/28/19 08:45 Rx Ondansetron [Zofran Odt] 4 mg PO Q8HR PRN #20 tab.rapdis 06/02/19 06/28/19 Unknown Rx Oxycodone HCl/Acetaminophen 1 each PO Q12H PRN #6 tablet 06/02/19 06/28/19 06/28/19 08:45 Rx [Percocet 10/325 mg] ED Physical Exam - General Limitations: No Limitations General appearance: alert, anxious, in distress, obese - Head Head exam: Present: atraumatic, normocephalic - Eye Eye exam: Present: normal appearance, EOMI. Absent: nystagmus - ENT ENT exam: Present: normal exam, normal orophraynx, mucous membranes moist, normal external ear exam - Neck Neck exam: Present: normal inspection, full ROM. Absent: tenderness, meningismus - Respiratory Respiratory exam: Present: normal lung sounds bilaterally. Absent: respiratory distress - Cardiovascular Cardiovascular Exam: Present: regular rate, normal rhythm, normal heart sounds. Absent: bradycardia, tachycardia, irregular rhythm, systolic murmur, diastolic murmur, rubs, gallop - GI/Abdominal GI/Abdominal exam: Present: soft. Absent: distended, tenderness, guarding, rebound, rigid, pulsatile mass - Extremities Exam Extremities exam: Present: normal inspection, full ROM, tenderness (there is bilateral anterior lateral thigh tenderness. The pelvis is stable. It is bilateral paralumbar tenderness), other (2+ pulses noted in the bilateral upper, lower extremities. Compartments soft. No long bony tenderness. The pelvis is stable.). Absent: calf tenderness - Back Exam Back exam: Present: normal inspection, paraspinal tenderness. Absent: CVA tenderness (R), CVA tenderness (L), vertebral tenderness - Neurological Exam Neurological exam: Present: alert, normal gait, other (Extraocular movements intact. Tongue midline. No facial droop. Facial sensation intact to light touch in the V1, V2, V3 distribution bilaterally. 5 and 5 strength in 4 extremities.. Sensation is intact to light touch in 4 extremities.) - Psychiatric Psychiatric exam: Present: anxious - Skin Skin exam: Present: warm, dry, intact, normal color. 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 aware Filled ID Written Drug QTY Days Prescriber Rx # Pharmacy * Refills Daily Dose Pymt Type [employer] 07/31/2019 3 07/31/2019 OXYCODONE-ACETAMINOPHEN 10-325 180.0 15 DO COL [id number] WIYOT ([id number]) 0 180.0 [facility] [place] 07/29/2019 3 07/29/2019 OXYCODONE-ACETAMINOPHEN 10-325 12.0 3 MD RUB [id number] WIYOT ([id number]) 0 60.0 [facility] 07/10/2019 3 07/06/2019 OXYCODONE-ACETAMINOPHEN 10-325 90.0 8 DO COL [id number] [facility] ([id number]) 0 168.75 [facility] [place] 05/31/2019 3 05/28/2019 OXYCODONE-ACETAMINOPHEN 10-325 180.0 30 DO COL [id number] JOSEFINA' ([id number]) 0 90.0 [facility] [place] 05/17/2019 3 05/15/2019 OXYCODONE-ACETAMINOPHEN 10-325 18.0 3 OS EGH [id number] WIYOT ([id number]) 0 90.0 [facility] 05/11/2019 3 05/10/2019 OXYCODONE-ACETAMINOPHEN 5-325 5.0 2 MD ZDR [id number] MARIBEL ([id number]) 0 18.75 [facility] [place] 04/26/2019 3 04/26/2019 OXYCODONE-ACETAMINOPHEN 10-325 18.0 5 OS EGH [id number] [facility] (0623) 0 54.0 [facility] [place] 04/07/2019 3 04/07/2019 OXYCODONE-ACETAMINOPHEN 10-325 90.0 11 DO COL [id number] JOSEFINA' ([id number]) 0 122.73 [facility] [place] 03/24/2019 3 03/24/2019 OXYCODONE-ACETAMINOPHEN 10-325 90.0 8 DO COL [id number] [facility] ([id number]) 0 168.75 [facility] [place] 03/12/2019 3 02/24/2019 OXYCODONE-ACETAMINOPHEN 10-325 90.0 8 DO COL [id number] [facility] ([id number]) 0 168.75 [facility] [place] 02/25/2019 3 02/24/2019 OXYCODONE-ACETAMINOPHEN 10-325 90.0 8 DO COL [id number] WI[facility]OT ([id number]) 0 168.75 [facility] [place] 02/14/2019 3 02/14/2019 OXYCODONE-ACETAMINOPHEN 10-325 90.0 6 DO COL [id number] WIYOT ([id number]) 0 225.0 [facility] [place] 01/31/2019 3 01/27/2019 OXYCODONE-ACETAMINOPHEN 10-325 90.0 11 DO COL [id number] JOSEFINA' ([id number]) 0 122.73 [facility] [place] 01/17/2019 3 01/17/2019 OXYCODONE-ACETAMINOPHEN 10-325 12.0 3 [facility] [id number] [facility] ([id number]) 0 60.0 [facility] [place] 01/06/2019 1 12/28/2018 OXYCODONE-ACETAMINOPHEN 10-325 90.0 8 DO COL [id number] [facility] ([id number]) 0 168.75 [facility] [place] 12/30/2018 3 12/28/2018 OXYCODONE-ACETAMINOPHEN 10-325 90.0 8 DO COL [id number] WIYOT ([id number]) 0 168.75 [facility] [place] 12/22/2018 2 12/22/2018 OXYCODONE HCL 10 MG TABLET 12.0 3 KE PAL [id number] KEYONNA ([id number]) 0 60.0 MME [place] Reevaluation #2: 08/13/19 10:56 Differential diagnosis, including not limited to: Sickle cell crisis, mens truation, sickle cell anemia Assessment and plan: 34-year-old female, known to this provider, known to this hospital, presenting with typical sickle cell crisis. She appears to be uncomfortable. She states that she is not . We will treat her pain aggressively. Appropriate screening laboratory studies ordered. Reticulocyte count today is elevated, however, appears to be similar to her prior laboratory value. In the past, I have typically been able to control this patient's pain to the point where she feels suitable for discharge. Reevaluation #3: 08/13/19 13:24 The patient is reassessed multiple times. Her pain is improved. She endorses readiness for discharge. Vital signs are improved Vital Signs 08/13/19 08/13/19 08/13/19 08:49 11:30 11:52 Temperature 98.7 F Pulse Rate 95 H 92 H Respiratory 16 20 20 Rate Blood Pressure 183/91 Blood Pressure 199/59 [Left] O2 Sat by Pulse 95 97 97 Oximetry 08/13/19 08/13/19 08/13/19 12:40 12:41 13:16 Temperature Pulse Rate 90 90 97 H Respiratory 21 17 Rate Blood Pressure 158/90 Blood Pressure 158/90 157/86 [Left] O2 Sat by Pulse 98 97 Oximetry ED Medical Decision Making - Lab Data Result diagrams: 08/13/19 10:37 Vital Signs 08/13/19 08:49 Temperature 98.7 F Pulse Rate 95 H Respiratory 16 Rate Blood Pressure 183/91 O2 Sat by Pulse 95 Oximetry Lab Results 08/13/19 Range/Units 10:37 RBC 2.63 L (3.65-5.03) M/mm3 Hgb 8.2 L (10.1-14.3) gm/dl Hct 24.6 L (30.3-42.9) % MCV 94 (79-97) fl MCH 31 (28-32) pg MCHC 33 (30-34) % RDW 24.8 H (13.2-15.2) % Plt Count 378 (140-440) K/mm3 Percent Retic 16.50 H (0.78-2.58) % Vital Signs 08/13/19 08/13/19 08/13/19 08:49 11:30 11:52 Temperature 98.7 F Pulse Rate 95 H 92 H Respiratory 16 20 20 Rate Blood Pressure 183/91 Blood Pressure 199/59 [Left] O2 Sat by Pulse 95 97 97 Oximetry Lab Results 08/13/19 08/13/19 Range/Units 10:37 10:37 WBC 19.9 H (4.5-11.0) K/mm3 RBC 2.63 L (3.65-5.03) M/mm3 Hgb 8.2 L (10.1-14.3) gm/dl Hct 24.6 L (30.3-42.9) % MCV 94 (79-97) fl MCH 31 (28-32) pg MCHC 33 (30-34) % RDW 24.8 H (13.2-15.2) % Plt Count 378 (140-440) K/mm3 Add Manual Diff Complete Total Counted 100 Seg Neuts % (Manual) 80.0 H (40.0-70.0) % Band Neutrophils % 1.0 % Lymphocytes % (Manual) 11.0 L (13.4-35.0) % Reactive Lymphs % (Man) 0 % Monocytes % (Manual) 5.0 (0.0-7.3) % Eosinophils % (Manual) 2.0 (0.0-4.3) % Basophils % (Manual) 0 (0.0-1.8) % Metamyelocytes % 1.0 % Myelocytes % 0 % Promyelocytes % 0 % Blast Cells % 0 % Nucleated RBC % 8.0 H (0.0-0.9) % Seg Neutrophils # Man 15.9 H (1.8-7.7) K/mm3 Band Neutrophils # 0.2 K/mm3 Lymphocytes # (Manual) 2.2 (1.2-5.4) K/mm3 Abs React Lymphs (Man) 0.0 K/mm3 Monocytes # (Manual) 1.0 H (0.0-0.8) K/mm3 Eosinophils # (Manual) 0.4 (0.0-0.4) K/mm3 Basophils # (Manual) 0.0 (0.0-0.1) K/mm3 Metamyelocytes # 0.2 K/mm3 Myelocytes # 0.0 K/mm3 Promyelocytes # 0.0 K/mm3 Blast Cells # 0.0 K/mm3 WBC Morphology Not Reportable Hypersegmented Neuts Not Reportable Hyposegmented Neuts Not Reportable Hypogranular Neuts Not Reportable Smudge Cells Not Reportable Toxic Granulation Not Reportable Toxic Vacuolation Not Reportable Dohle Bodies Not Reportable Pelger-Huet Anomaly Not Reportable Ariadne Rods Not Reportable Platelet Estimate Consistent w auto Clumped Platelets Not Reportable Plt Clumps, EDTA Not Reportable Large Platelets Not Reportable Giant Platelets Not Reportable Platelet Satelliting Not Reportable Plt Morphology Comment Not Reportable RBC Morphology Not Reportable Dimorphic RBCs Not Reportable Polychromasia 1+ Hypochromasia Not Reportable Poikilocytosis Not Reportable Anisocytosis 2+ Microcytosis Not Reportable Macrocytosis Not Reportable Spherocytes Not Reportable Pappenheimer Bodies Not Reportable Sickle Cells 1+ Target Cells 1+ Tear Drop Cells Not Reportable Ovalocytes Not Reportable Helmet Cells Not Reportable [place] Bodies Not Reportable [place] Rings Not Reportable Betsy Cells Not Reportable Bite Cells Not Reportable Crenated Cell Not Reportable Elliptocytes Not Reportable Acanthocytes (Spur) Not Reportable Rouleaux Not Reportable Hemoglobin C Crystals Not Reportable Schistocytes Not Reportable Malaria parasites Not Reportable Percent Retic 16.50 H (0.78-2.58) % Alexis Bodies Not Reportable Hem Pathologist Commnt No HCG, Quant < 2 (0-4) mIU/mL Critical care attestation.: If time is entered above; I have spent that time in minutes in the direct care of this critically ill patient, excluding procedure time. ED Disposition Clinical Impression: Sickle cell pain crisis, Poorly-controlled hypertension Disposition: DC-01 TO HOME OR SELFCARE Is pt being admited?: No Does the pt Need Aspirin: No Condition: Stable Additional Instructions: Continue outpatient medications. Follow-up with your primary care doctor or hematology air cargo specialist supervisor within the next 7-10 days. Please note that b lood pressure was elevated in the emergency room. This should be followed up by her primary care doctor as recommended. Long-term complications of hypertension and elevated blood pressure include stroke, heart attack, disability, , paralysis, loss of quality of life. Follow-up with her hemat ology air cargo specialist supervisor for refills on a controlled substance pain medication. Please return to the emergency room right away with new, worsening or different symptoms, or symptoms not present on the initial emergency room evaluation. Referrals: PATTIE KEANE MD [Referring] - 3-5 Days [facility] [Provider Group] - 3-5 Days
[2019-08-13] MEDS ORDERED: ONDANSETRON 4 MG/2 ML INJ IV ONE (10:08)
[2019-08-13] MEDS ORDERED: HYDROmorphone 2 MG/1 ML INJ IV ONE ×3 (10:08→12:14)
[2019-08-13 10:45] LABS: Hematocrit 24.6 % (30.3-42.9); Hemoglobin 8.2 gm/dl (10.1-14.3); Mean Corpuscular HGB Conc 33 % (30-34); Mean Corpuscular Volume 94 fl (79-97); Platelet Count 378 K/mm3 (140-440); Red Blood Count 2.63 M/mm3 (3.65-5.03)
[2019-08-13 10:47] LABS: Red Cell Distribution Width 24.8 % (13.2-15.2)
[2019-08-13] MEDS ORDERED: D5W/0.45% NACL 1,000 ML IV SCH (11:00)
[2019-08-13 11:32] LABS: Basophils % (Manual) 0 % (0.0-1.8); Total Cells Counted 100
[2019-08-13 11:33] LABS: Band Neutrophils # (Manual) 0.2 K/mm3
[2019-08-13 11:34] LABS: Anisocytosis 2+; Platelet Estimate Consistent w Auto; Sickle Cells 1+; Target Cells 1+
[2019-08-13] MEDS ORDERED: hydrALAZINE 20 MG/1 ML INJ IV ONE (12:13)
[2019-08-13 13:52] VITALS: BP 164/83
== END 2019-08-13 13:40 | disposition home or self-care (01) ==
LOC: ED 08:46
DX: D57.00 Hb-SS disease with crisis, unspecified (principal); I10 Essential (primary) hypertension; J45.909 Unspecified asthma, uncomplicated; M19.90 Unspecified osteoarthritis, unspecified site; Z86.2 Personal history of diseases of the blood and blood-forming organs and certain disorders involving the immune mechanism; Z90.49 Acquired absence of other specified parts of digestive tract; Z79.899 Other long term (current) drug therapy; Z88.6 Allergy status to analgesic agent
CPT/HCPCS: 36415; 84702; 85007; 85025; 85045; 96374; 96375; 96376; 99284; J0360; J1170; J1642; J2405

== ENCOUNTER 2019-08-15 07:52 | Emergency (ER) | payer MEDICAID ==
[2019-08-15] MEDS ORDERED: hydrALAZINE 20 MG/1 ML INJ IV ONE (08:42)
[2019-08-15] MEDS ORDERED: HYDROmorphone 2 MG/1 ML INJ IV ONE ×3 (08:42→11:21)
[2019-08-15] MEDS ORDERED: ONDANSETRON 4 MG/2 ML INJ IV ONE (08:42)
--- NOTE | 2019-08-15 08:45 | Emergency Department Report ---
HPI - General Chief Complaint: Sickle Cell Crisis - HPI HPI: 34-year-old -[place] female, who is well known to both myself and this emergency department, presents to the emergency department with a complaint of generalized pain that she believes is a sickle cell pain crisis. The pain is mostly to the back and legs but she does say that she has pain "everywhere." She denies any specific chest pain, shortness of breath, fever. She has a left- sided chest port. On top of the sickle cell anemia, the patient has a history of hypertension. She is on Norvasc, lisinopril and Catapres. She presents with elevated blood pressure this morning and says that she took her medication, except for the Catapres. Her soaping machine back tender is a Dr. Keane and she has an appointment coming up on the . The patient was recently here, 2 days ago, for similar symptoms. ED Past Medical Hx - Past Medical History Previous Medical History?: Yes Hx Hypertension: Yes Hx CVA: No Hx Heart Attack/AMI: No Hx Congestive Heart Failure: No Hx Diabetes: No Hx Sickle Cell Disease: Yes Hx Arthritis: Yes Hx Asthma: Yes Hx COPD: No Hx HIV: No Additional medical history: ANEMIA, multiple port infections - Surgical History Past Surgical History?: Yes Hx Cholecystectomy: Yes Additional Surgical History: , port removed June 2014. PICC line left upper arm (11/19/2014). . - Social History Smoking Status: Never Smoker Substance Use Type: None - Medications Home Medications: Home Medications Medication Instructions Recorded Confirmed Last Taken Type Folic Acid [Folvite] 1 mg PO DAILY #30 tablet 07/29/16 06/28/19 06/28/19 08:45 Rx Lisinopril [Zestril TAB] 40 mg PO QDAY #30 tablet 12/02/16 06/28/19 06/28/19 08:45 Rx amLODIPine [Norvasc] 10 mg PO QDAY #30 tablet 12/02/16 06/28/19 06/28/19 08:45 Rx Hydroxyurea [Hydrea] 500 mg PO DAILY 03/19/19 06/28/19 06/28/19 08:45 History Methadone [Dolophine] 10 mg PO BID 03/19/19 06/28/19 06/28/19 08:45 History cloNIDine [Catapres] 0.2 mg PO BID 03/19/19 06/28/19 06/28/19 08:45 History Acetaminophen [Non-Aspirin Extra 500 mg PO Q6HR PRN #30 tablet 06/02/19 06/28/19 Unknown Rx Strength] Ibuprofen [Motrin] 600 mg PO Q8H PRN #30 tablet 06/02/19 06/28/19 06/28/19 08:45 Rx Ondansetron [Zofran Odt] 4 mg PO Q8HR PRN #20 tab.rapdis 06/02/19 06/28/19 Unknown Rx Oxycodone HCl/Acetaminophen 1 each PO Q12H PRN #6 tablet 06/02/19 06/28/19 06/28/19 08:45 Rx [Percocet 10/325 mg] ED Review of Systems ROS: Stated complaint: SICKLE CELL Other details as noted in HPI Comment: All other systems reviewed and negative Constitutional: denies: chills, fever Eyes: denies: eye pain, vision change ENT: denies: ear pain, throat pain Respiratory: denies: cough, shortness of breath Cardiovascular: denies: chest pain, palpitations Gastrointestinal: nausea. denies: vomiting Genitourinary: denies: dysuria, discharge Musculoskeletal: back pain, arthralgia, myalgia. denies: joint swelling Skin: denies: rash, lesions Neurological: denies: headache, weakness, numbness, paresthesias Physical Exam - Physical Exam Vital Signs: Vital Signs 08/15/19 08:13 Temperature 97.8 F Pulse Rate 109 H Respiratory 20 Rate Blood Pressure 220/114 O2 Sat by Pulse 99 Oximetry Physical Exam: GENERAL: The patient is well-developed well-nourished. HENT: Normocephalic. Atraumatic. Patient has moist mucous membranes. EYES: Extraocular motions are intact. NECK: Supple. Trachea is midline. CHEST/LUNGS: Clear to auscultation. There is no respiratory distress noted. HEART/CARDIOVASCULAR: Regular. There is no tachycardia. There is no murmur. ABDOMEN: Abdomen is soft, nontender. Patient has normal bowel sounds. There is no abdominal distention. SKIN: Skin is warm and dry. NEURO: The patient is awake, alert, and oriented. The patient is cooperative. The patient has no focal neurologic deficits. Normal speech. MUSCULOSKELETAL: There is no tenderness or deformity. There is no limitation range of motion. There is no evidence of acute injury. BACK: No midline thoracic or lumbar tenderness to palpation, step-off or deformity. There is reproducible bilateral paraspinal tenderness. ED Course Vital Signs 08/15/19 08:13 Temperature 97.8 F Pulse Rate 109 H Respiratory 20 Rate Blood Pressure 220/114 O2 Sat by Pulse 99 Oximetry ED Medical Decision Making - Lab Data Result diagrams: 08/15/19 09:20 08/15/19 09:20 - Medical Decision Making Patient presents to the emergency department with the complaint of some generalized aches and pain, especially in the back and legs. This is consistent with her previous sickle cell pain crisis. Her labs do show some anemia, leukocytosis and elevated reticulocyte count, but it is consistent with previous visits including 2 days ago. Patient was given some IV fluid, pain and blood pressure medications, and upon reevaluation she is feeling greatly improved. Otherwise her vital signs stable throughout her ED course including being afebrile. Patient was seen ambulatory prior to discharge and appears stable. She has good follow-up with hematology, Dr. Keane, and says she is going to try to move up her appointment. The patient will return to the emergency Department with any worsening of her symptoms or any acute distress. - Differential Diagnosis sickle cell pain crisis, muscle spasm, fibromyalgia Critical Care Time: No Critical care attestation.: If time is entered above; I have spent that time in minutes in the direct care of this critically ill patient, excluding procedure time. ED Disposition Clinical Impression: Anemia, sickle cell with crisis, Sickle cell pain crisis Hypertension Qualifiers: Hypertension type: essential hypertension Qualified Code(s): I10 - Essential (primary) hypertension Disposition: - TO HOME OR SELFCARE Is pt being admited?: No Condition: Stable Instructions: Sickle Cell Crisis (ED), Hypertension (ED), Anemia (ED) Additional Instructions: Please follow-up with your soaping machine back tender and primary care physician in the next few days. Return to the emergency Department with any worsening of your symptoms or any acute distress. Referrals: PATTIE KEANE MD [Referring] - 2-3 Days PRIMARY CARE, [Primary Care Provider] - 2-3 Days Time of Disposition: 13:41
[2019-08-15] MEDS ORDERED: diphenhydrAMINE 50 MG/ML VIAL ONE (09:29)
[2019-08-15] MEDS ORDERED: diphenhydrAMINE 50 MG/ML VIAL IV ONE ×2 (09:37→11:33)
[2019-08-15 09:56] LABS: Hemoglobin 8.2 gm/dl (10.1-14.3); Mean Corpuscular HGB Conc 33 % (30-34); Mean Corpuscular Volume 94 fl (79-97); Platelet Count 406 K/mm3 (140-440); Red Blood Count 2.66 M/mm3 (3.65-5.03)
[2019-08-15 09:59] LABS: Red Cell Distribution Width 24.2 % (13.2-15.2)
[2019-08-15 10:11] LABS: BUN/Creatinine Ratio 15; Blood Urea Nitrogen 12 mg/dL (7-17); Calcium 8.5 mg/dL (8.4-10.2); Hemolysis Index 7
[2019-08-15 12:05] VITALS: BP 148/73
[2019-08-15 13:02] LABS: Basophils % (Manual) 0 % (0.0-1.8); Total Cells Counted 100
[2019-08-15 13:06] LABS: Anisocytosis 2+; Platelet Estimate Consistent w Auto; Poikilocytosis 1+; Sickle Cells 1+; Target Cells 1+
== END 2019-08-15 12:41 | disposition home or self-care (01) ==
LOC: ED 07:52
DX: D57.00 Hb-SS disease with crisis, unspecified (principal); I10 Essential (primary) hypertension; J45.909 Unspecified asthma, uncomplicated; M19.90 Unspecified osteoarthritis, unspecified site; Z86.2 Personal history of diseases of the blood and blood-forming organs and certain disorders involving the immune mechanism; Z88.5 Allergy status to narcotic agent
CPT/HCPCS: 36415; 80048; 85007; 85025; 85045; 96374; 96375; 96376; 99284; J0360; J1170; J1200; J1642; J2405

== ENCOUNTER 2019-08-18 11:13 | Emergency (ER) | payer MEDICAID ==
--- NOTE | 2019-08-18 11:26 | Event Note ---
ED Screening Note Date of service: 08/18/19 Time: 11:22 ED Screening Note: This is a 34 y.o. F. that presents to the ER with generalized body aches. PMH of sickle cell, HTN, and anemia Patient states she may be in a sickle cell crisis. LMP 08/17/2019 Denies chest pain, sob, cough, fever, or chills This initial assessment/diagnostic orders/clinical plan/treatment(s) is/are subject to change based on patients health status, clinical progression and re- assessment by fellow clinical providers in the ED. Further treatment and workup at subsequent clinical providers discretion. Patient/guardian urged not to elope from the ED as their condition may be serious if not clinically assessed and managed. Initial orders include: Labs
[2019-08-18] MEDS ORDERED: DILAUDID IV ONE ×3 (12:25→13:54)
[2019-08-18 12:40] LABS: Basophils # (Auto) 0.2 K/mm3 (0.0-0.1); Basophils % (Auto) 1.2 % (0.0-1.8); Eosinophils # (Auto) 0.3 K/mm3 (0.0-0.4); Eosinophils % (Auto) 1.7 % (0.0-4.3); Hematocrit 25.4 % (30.3-42.9); Hemoglobin 8.5 gm/dl (10.1-14.3); Lymphocytes # (Auto) 3.9 K/mm3 (1.2-5.4); Lymphocytes % (Auto) 21.6 % (13.4-35.0); Mean Corpuscular HGB Conc 34 % (30-34); Mean Corpuscular Volume 94 fl (79-97); Monocytes # (Auto) 1.5 K/mm3 (0.0-0.8); Monocytes % (Auto) 8.1 % (0.0-7.3); Platelet Count 455 K/mm3 (140-440); Red Blood Count 2.69 M/mm3 (3.65-5.03)
[2019-08-18] MEDS ORDERED: XYLOCAINE 1% 20 mL ONE (12:44)
[2019-08-18] MEDS ORDERED: ZOFRAN IV ONE (12:46)
[2019-08-18] MEDS ORDERED: BENADRYL IV ONE ×2 (12:46→16:05)
[2019-08-18] MEDS ORDERED: APRESOLINE IV ONE (12:47)
[2019-08-18] MEDS ORDERED: BENADRYL ONE (12:48)
[2019-08-18 12:49] LABS: Red Cell Distribution Width 24.8 % (13.2-15.2)
[2019-08-18] MEDS ORDERED: ZOFRAN ONE (12:49)
[2019-08-18] MEDS ORDERED: CALCIUM CHLORIDE IV ONE (14:35)
--- NOTE | 2019-08-18 14:42 | Emergency Department Report ---
ED General Adult HPI - General Chief complaint: Sickle Cell Crisis Stated complaint: SICKLE CELL CRISIS Time Seen by Provider: 08/18/19 11:22 Source: patient Mode of arrival: Ambulatory Limitations: No Limitations - History of Present Illness Initial comments: 34-year-old -Congolese female patient with history of sickle cell disease, hypertension, and chronic pain presents to the ED with complaints of generalized pain this morning. Patient well known to ED. Patient seen in ED on 08/15/19 and 08/13/19 for similar symptoms. She denies any chest pain, shortness of breath, abdominal pain, fever. She states this feels like my normal sickle cell pain. Blood pressure noted to be significantly elevated today. Patient states compliance with her blood pressure medications, however states she is currently out of clonidine for the past few days. He denies headache or dizziness. She states her next follow-up visit on 08/29/[address] Torres. Complaint: generalized pain -: Sudden Severity scale (0 -10): 9 Quality: aching Consistency: constant Improves with: none Worsens with: none Associated Symptoms: denies other symptoms - Related Data Home Medications Medication Instructions Recorded Confirmed Last Taken Hydroxyurea [Hydrea] 500 mg PO DAILY 03/19/19 08/18/19 08/18/19 Methadone [Dolophine] 10 mg PO BID 03/19/19 08/18/19 08/18/19 cloNIDine [Catapres] 0.2 mg PO BID 03/19/19 08/18/19 08/18/19 Previous Rx's Medication Instructions Recorded Last Taken Type Folic Acid [Folvite] 1 mg PO DAILY #30 tablet 07/29/16 08/18/19 Rx Lisinopril [Zestril TAB] 40 mg PO QDAY #30 tablet 12/02/16 08/18/19 Rx amLODIPine [Norvasc] 10 mg PO QDAY #30 tablet 12/02/16 08/18/19 Rx Acetaminophen [Non-Aspirin Extra 500 mg PO Q6HR PRN #30 tablet 06/02/19 08/15/19 Rx Strength] Ondansetron [Zofran Odt] 4 mg PO Q8HR PRN #20 tab.rapdis 06/02/19 08/15/19 Rx Oxycodone HCl/Acetaminophen 1 each PO Q12H PRN #6 tablet 06/02/19 08/18/19 Rx [Percocet 10/325 mg] Allergies Allergy/AdvReac Type Severity Reaction Status Date / Time morphine Allergy Shortness Verified 06/25/19 08:38 of Breath ED Review of Systems ROS: Stated complaint: SICKLE CELL CRISIS Other details as noted in HPI Comment: All other systems reviewed and negative Musculoskeletal: back pain, myalgia ED Past Medical Hx - Past Medical History Previous Medical History?: Yes Hx Hypertension: Yes Hx CVA: No Hx Heart Attack/AMI: No Hx Congestive Heart Failure: No Hx Diabetes: No Hx Sickle Cell Disease: Yes Hx Arthritis: Yes Hx Asthma: Yes Hx COPD: No Hx HIV: No Additional medical history: ANEMIA, multiple port infections - Surgical History Past Surgical History?: Yes Hx Cholecystectomy: Yes Additional Surgical History: , port removed June 2014. PICC line left upper arm (11/19/2014). . - Social History Smoking Status: Never Smoker Substance Use Type: None - Medications Home Medications: Home Medications Medication Instructions Recorded Confirmed Last Taken Type Folic Acid [Folvite] 1 mg PO DAILY #30 tablet 07/29/16 08/18/19 08/18/19 Rx Lisinopril [Zestril TAB] 40 mg PO QDAY #30 tablet 12/02/16 08/18/19 08/18/19 Rx amLODIPine [Norvasc] 10 mg PO QDAY #30 tablet 12/02/16 08/18/19 08/18/19 Rx Hydroxyurea [Hydrea] 500 mg PO DAILY 03/19/19 08/18/19 08/18/19 History Methadone [Dolophine] 10 mg PO BID 03/19/19 08/18/19 08/18/19 History cloNIDine [Catapres] 0.2 mg PO BID 03/19/19 08/18/19 08/18/19 History Acetaminophen [Non-Aspirin Extra 500 mg PO Q6HR PRN #30 tablet 06/02/19 08/18/19 08/15/19 Rx Strength] Ondansetron [Zofran Odt] 4 mg PO Q8HR PRN #20 tab.rapdis 06/02/19 08/18/19 08/15/19 Rx Oxycodone HCl/Acetaminophen 1 each PO Q12H PRN #6 tablet 06/02/19 08/18/19 08/18/19 Rx [Percocet 10/325 mg] ED Physical Exam - General Limitations: No Limitations General appearance: alert, in no apparent distress - Head Head exam: Present: atraumatic, normocephalic - Eye Eye exam: Present: normal appearance - Neck Neck exam: Present: normal inspection, full ROM. Absent: tenderness - Respiratory Respiratory exam: Present: normal lung sounds bilaterally. Absent: respiratory distress - Cardiovascular Cardiovascular Exam: Present: regular rate, normal rhythm, systolic murmur. Absent: normal heart sounds - GI/Abdominal GI/Abdominal exam: Present: soft, tenderness (minimal, generalized ), normal bowel sounds. Absent: distended, guarding, rebound, rigid - Extremities Exam Extremities exam: Present: full ROM, tenderness (generalized in extremities, no specific bony tenderness noted). Absent: pedal edema - Back Exam Back exam: Present: full ROM, paraspinal tenderness, vertebral tenderness. Absent: CVA tenderness (L), muscle spasm - Neurological Exam Neurological exam: Present: alert, oriented X3 - Psychiatric Psychiatric exam: Present: normal affect ED Course Vital Signs 08/18/19 08/18/19 08/18/19 11:26 12:53 14:17 Temperature 98.7 F Pulse Rate 85 92 H 100 H Respiratory 18 18 Rate Blood Pressure 214/96 196/98 Blood Pressure 209/111 [Left] O2 Sat by Pulse 87 97 Oximetry 08/18/19 08/18/19 14:19 16:27 Temperature Pulse Rate 100 H 103 H Respiratory 20 Rate Blood Pressure 185/93 Blood Pressure 196/98 [Left] O2 Sat by Pulse 98 Oximetry ED Medical Decision Making - Lab Data Result diagrams: 08/18/19 11:23 08/18/19 15:59 Lab Results 08/18/19 08/18/19 Range/Units 11:23 15:59 WBC 18.1 H (4.5-11.0) K/mm3 RBC 2.69 L (3.65-5.03) M/mm3 Hgb 8.5 L (10.1-14.3) gm/dl Hct 25.4 L (30.3-42.9) % MCV 94 (79-97) fl MCH 32 (28-32) pg MCHC 34 (30-34) % RDW 24.8 H (13.2-15.2) % Plt Count 455 H (140-440) K/mm3 Lymph % (Auto) 21.6 (13.4-35.0) % [place] % (Auto) 8.1 H (0.0-7.3) % Eos % (Auto) 1.7 (0.0-4.3) % Baso % (Auto) 1.2 (0.0-1.8) % Lymph # 3.9 (1.2-5.4) K/mm3 [place] # 1.5 H (0.0-0.8) K/mm3 Eos # 0.3 (0.0-0.4) K/mm3 Baso # 0.2 H (0.0-0.1) K/mm3 Seg Neutrophils % 67.4 (40.0-70.0) % Seg Neutrophils # 12.2 H (1.8-7.7) K/mm3 Percent Retic 14.43 H (0.78-2.58) % Sodium 141 (137-145) mmol/L Potassium 4.2 (3.6-5.0) mmol/L Chloride 103.2 (98-107) mmol/L Carbon Dioxide 21 L (22-30) mmol/L Anion Gap 21 mmol/L BUN 9 (7-17) mg/dL Creatinine 0.8 (0.7-1.2) mg/dL Estimated GFR > 60 ml/min BUN/Creatinine Ratio 11 % Glucose 144 H (65-100) mg/dL Calcium 9.0 (8.4-10.2) mg/dL - Radiology Data Radiology results: report reviewed CHEST 2 VIEWS INDICATION: Chest Pain. COMPARISON: 06/28/2019 FINDINGS: Support devices: Left [id number] terminates in the superior right atrium. Heart: Within normal limits. Lungs/pleura: No acute air space or interstitial disease. No pneumothorax. Additional findings: None. IMPRESSION: No acute findings. - Medical Decision Making Patient here for sickle cell pain. He is generalized. She states after 3 rounds of pain medication her symptoms have resolved. Mild improvement in blood pressure with hydralazine IV however is still significantly elevated. Patient continues to deny chest pain, shortness of breath, headache, dizziness, numbness/tingling or vision changes. Frank within normal limits. Wbc's are normal. No significant changes in reticulocyte for hemoglobin noted. Discussed patient with Dr. Genaro-recommends admission for blood pressure control. Discussed with patient who states she does not want to stay in the hospital. Patient states she will sign out AMA. Critical care attestation.: If time is entered above; I have spent that time in minutes in the direct care of this critically ill patient, excluding procedure time. ED Disposition Clinical Impression: Sickle cell anemia with crisis Disposition: DC-07 LEFT AGAINST MED ADVICE Is pt being admited?: No Condition: Fair Referrals: PRIMARY CAREMD [Primary Care Provider] - 3-5 Days Forms: AMA Form
[2019-08-18] MEDS ORDERED: CATAPRES PO ONE (15:08)
[2019-08-18] MEDS ORDERED: ROXICODONE PO ONE (16:05)
--- NOTE | 2019-08-18 16:06 | XRay Report ---
CHEST 2 VIEWS INDICATION: Chest Pain. COMPARISON: 06/28/2019 FINDINGS: Support devices: Left [id number] terminates in the superior right atrium. Heart: Within normal limits. Lungs/pleura: No acute air space or interstitial disease. No pneumothorax. Additional findings: None. IMPRESSION: No acute findings. Signer Name: Tony Montilla Jr, MD Signed: 08/18/2019 4:02 PM Workstation Name: [id number]
[2019-08-18] MEDS ORDERED: DILAUDID ONE (16:25)
[2019-08-18 16:28] VITALS: BP 185/93
[2019-08-18 16:40] LABS: BUN/Creatinine Ratio 11; Blood Urea Nitrogen 9 mg/dL (7-17); Hemolysis Index 3
== END 2019-08-18 17:29 | disposition left against medical advice (07) ==
LOC: ED 11:13
DX: D57.00 Hb-SS disease with crisis, unspecified (principal); I10 Essential (primary) hypertension; M19.90 Unspecified osteoarthritis, unspecified site; J45.909 Unspecified asthma, uncomplicated; Z86.2 Personal history of diseases of the blood and blood-forming organs and certain disorders involving the immune mechanism; Z90.49 Acquired absence of other specified parts of digestive tract; Z79.899 Other long term (current) drug therapy; Z88.6 Allergy status to analgesic agent
CPT/HCPCS: 36415; 71046; 80048; 85025; 85045; 96374; 96375; 96376; 99284; J0360; J1170; J1200; J2405

== ENCOUNTER 2019-08-22 00:09 | Observation (INO) | payer MEDICAID ==
[2019-08-22] MEDS ORDERED: DILAUDID IV ONE ×3 (00:31→03:26)
[2019-08-22] MEDS ORDERED: BENADRYL IV ONE ×2 (00:31→03:26)
[2019-08-22] MEDS ORDERED: APRESOLINE IV ONE (00:31)
[2019-08-22] MEDS ORDERED: ZOFRAN IV ONE (00:31)
--- NOTE | 2019-08-22 01:00 | Emergency Department Report ---
HPI - General Chief Complaint: Sickle Cell Crisis Time Seen by Provider: 08/22/19 00:30 - HPI HPI: 34-year-old -Welsh female, who is well known to both myself and this department, presents to the emergency department with complaint of some back p ain, bilateral leg pain and chest soreness that she feels is a sickle cell pain crisis. She denies any fever, shortness of breath, vomiting. Patient follows up with a gas desulfurizer, Dr. Torres, and has an appointment with him on Sunday. She took her normal home medications without any relief. No recent travel or sick contacts at home. She also has a past medical history of asthma, arthritis, hypertension. ED Past Medical Hx - Past Medical History Previous Medical History?: Yes Hx Hypertension: Yes Hx CVA: No Hx Heart Attack/AMI: No Hx Congestive Heart Failure: No Hx Diabetes: No Hx Sickle Cell Disease: Yes Hx Arthritis: Yes Hx Asthma: Yes Hx COPD: No Hx HIV: No Additional medical history: ANEMIA, multiple port infections - Surgical History Past Surgical History?: Yes Hx Cholecystectomy: Yes Additional Surgical History: , port removed June 2014. PICC line left upper arm (11/19/2014). . - Social History Smoking Status: Never Smoker Substance Use Type: None - Medications Home Medications: Home Medications Medication Instructions Recorded Confirmed Last Taken Type Folic Acid [Folvite] 1 mg PO DAILY #30 tablet 07/29/16 08/18/19 08/18/19 Rx Lisinopril [Zestril TAB] 40 mg PO QDAY #30 tablet 12/02/16 08/18/19 08/18/19 Rx amLODIPine [Norvasc] 10 mg PO QDAY #30 tablet 12/02/16 08/18/19 08/18/19 Rx Hydroxyurea [Hydrea] 500 mg PO DAILY 03/19/19 08/18/19 08/18/19 History Methadone [Dolophine] 10 mg PO BID 03/19/19 08/18/19 08/18/19 History cloNIDine [Catapres] 0.2 mg PO BID 03/19/19 08/18/19 08/18/19 History Acetaminophen [Non-Aspirin Extra 500 mg PO Q6HR PRN #30 tablet 06/02/19 08/18/19 08/15/19 Rx Strength] Ondansetron [Zofran Odt] 4 mg PO Q8HR PRN #20 tab.rapdis 06/02/19 08/18/19 08/15/19 Rx Oxycodone HCl/Acetaminophen 1 each PO Q12H PRN #6 tablet 06/02/19 08/18/19 08/18/19 Rx [Percocet 10/325 mg] ED Review of Systems ROS: Stated complaint: SICKLE CELL PAIN Other details as noted in HPI Comment: All other systems reviewed and negative Constitutional: denies: fever Eyes: denies: eye pain, vision change ENT: denies: ear pain, throat pain Respiratory: denies: cough, shortness of breath Cardiovascular: chest pain. denies: palpitations Gastrointestinal: denies: abdominal pain, vomiting Musculoskeletal: back pain, myalgia. denies: joint swelling Skin: denies: rash, lesions Neurological: denies: weakness, numbness, paresthesias Physical Exam - Physical Exam Vital Signs: Vital Signs 08/22/19 00:20 Temperature 98.8 F Pulse Rate 102 H Respiratory 16 Rate Blood Pressure 172/94 [Right] O2 Sat by Pulse 99 Oximetry Physical Exam: GENERAL: The patient is well-developed well-nourished. HENT: Normocephalic. Atraumatic. Patient has moist mucous membranes. EYES: Extraocular motions are intact. NECK: Supple. Trachea is midline. CHEST/LUNGS: Clear to auscultation. There is no respiratory distress noted. There is reproducible chest pain to palpation along the chest wall. No crepitus or deformity. HEART/CARDIOVASCULAR: Regular. There is no tachycardia. There is no murmur. ABDOMEN: Abdomen is soft, nontender. Patient has normal bowel sounds. There is no abdominal distention. SKIN: Skin is warm and dry. NEURO: The patient is awake, alert, and oriented. The patient is cooperative. The patient has no focal neurologic deficits. Normal speech. MUSCULOSKELETAL: Unable to reproduce the tenderness to palpation of the lower extremities. No obvious deformity. There is no limitation range of motion. There is no evidence of acute injury. BACK: No midline thoracic or lumbar tenderness to palpation, step-off or deformity. There is some lumbar bilateral paraspinal tenderness to palpation. ED Course Vital Signs 08/22/19 00:20 Temperature 98.8 F Pulse Rate 102 H Respiratory 16 Rate Blood Pressure 172/94 [Right] O2 Sat by Pulse 99 Oximetry ED Medical Decision Making - Lab Data Result diagrams: 08/22/19 01:31 08/22/19 01:31 - EKG Data -: EKG Interpreted by Me EKG shows normal: sinus rhythm, axis, intervals (prolonged MA interval), QRS complexes (LVH), ST-T waves Rate: normal - EKG Data When compared to previous EKG there are: no significant change Interpretation: unchanged when compared t (11/07/16) - Radiology Data Radiology results: image reviewed interpreted by me: Chest x-ray does not show any acute process. There are no pleural effusions, obvious pneumonia and there is no pneumothorax. - Medical Decision Making This patient is well known to both myself and his department. She has a history of sickle cell anemia and a chronic pain syndrome. She often presents with elevated blood pressure. The patient has a history of having some level of leukocytosis and elevated reticulocyte counts during her visits. However the numbers appear more elevated today than usual. The white blood cell count is greater than 20,000. The hemoglobin has dropped from about 8.5-7.9. The reticulocyte count is greater than 15. She was given 3 different doses of strong pain medication and still complains of discomfort. Due to her complaint of some mild chest discomfort, a chest x-ray was done that does not show any pneumonia, pleural effusions or any other acute process. She is afebrile. I have a lower suspicion that the patient has an acute chest crisis. However the patient will be admitted to the hospital for further evaluation and treatment and was accepted for admission by the hospitalist, Dr. Mane. - Differential Diagnosis sickle cell pain crisis, chest crisis, VT, Pneumonia Critical Care Time: No Critical care attestation.: If time is entered above; I have spent that time in minutes in the direct care of this critically ill patient, excluding procedure time. ED Disposition Clinical Impression: Anemia, sickle cell with crisis, Sickle cell pain crisis Leukocytosis Qualifiers: Leukocytosis type: unspecified Qualified Code(s): D72.829 - Elevated white blood cell count, unspecified Hypertension Qualifiers: Hypertension type: essential hypertension Qualified Code(s): I10 - Essential (primary) hypertension Disposition: OP ADMIT IP TO THIS HOSP Is pt being admited?: Yes Condition: Fair Instructions: Hypertension (ED) Referrals: PRIMARY CARE, [Primary Care Provider] - 3-5 Days Time of Disposition: 04:09
--- NOTE | 2019-08-22 01:24 | XRay Report ---
CHEST 1 VIEW INDICATION / CLINICAL INFORMATION: CP. COMPARISON: 08/18/2019 FINDINGS: SUPPORT DEVICES: Stable, satisfactory device positioning. HEART / MEDIASTINUM: No significant abnormality. LUNGS / PLEURA: No significant pulmonary or pleural abnormality. No pneumothorax. ADDITIONAL FINDINGS: No significant additional findings. IMPRESSION: 1. No acute findings. Signer Name: Ochoa Nolan MD Signed: 08/22/2019 1:20 AM Workstation Name: [id number]
[2019-08-22 02:10] LABS: Hematocrit 23.4 % (30.3-42.9); Hemoglobin 7.9 gm/dl (10.1-14.3); Mean Corpuscular HGB Conc 34 % (30-34); Mean Corpuscular Volume 95 fl (79-97); Platelet Count 467 K/mm3 (140-440); Red Blood Count 2.47 M/mm3 (3.65-5.03)
[2019-08-22 02:13] LABS: Red Cell Distribution Width 22.3 % (13.2-15.2)
[2019-08-22 02:15] LABS: BUN/Creatinine Ratio 14; Blood Urea Nitrogen 14 mg/dL (7-17); Calcium 8.3 mg/dL (8.4-10.2); Hemolysis Index 12
[2019-08-22] MEDS ORDERED: LABETALOL IV ONE (02:25)
[2019-08-22 04:30] LABS: Sickle Cells 1+; Total Cells Counted 100
[2019-08-22 04:31] LABS: Macrocytosis Few; Platelet Estimate Consistent w Auto; Target Cells Rare
[2019-08-22] MEDS ORDERED: ZOFRAN IV PRN (04:52)
[2019-08-22] MEDS ORDERED: TYLENOL PO PRN (04:54)
[2019-08-22] MEDS ORDERED: APRESOLINE IV PRN (04:55)
--- NOTE | 2019-08-22 05:27 | History and Physical Report ---
CHIEF COMPLAINT: Generalized body pain. HISTORY OF PRESENT ILLNESS: The patient is a 34-year-old female with known history of sickle cell anemia, presenting with pain all over the body. There is no history of fever or chills. No history of shortness of breath and also no history of nausea and vomiting and the patient said that the pain involves the back, the lower limbs and chest area. There is no history of dizziness. PAST MEDICAL HISTORY: Pertinent for sickle cell anemia, hypertension, arthritis, asthma, anemia, multiple port infection. PAST SURGICAL HISTORY: Pertinent for cholecystectomy, , polyp removal, PICC line placement. FAMILY HISTORY: Noncontributory. SOCIAL HISTORY: The patient does not smoke, does not drink alcohol and does not use illicit drugs. MEDICATIONS: The patient is on folic acid 1 mg by mouth daily, lisinopril 40 mg by mouth daily, amlodipine 10 mg by mouth daily, hydroxyurea 500 mg by mouth daily, methadone 10 mg by mouth twice daily, Catapres 0.2 mg by mouth twice daily, Tylenol Extra Strength 500 mg by mouth every 6 hours as needed for pain, Zofran 4 mg by mouth every 8 hours as needed for nausea and vomiting, Percocet 10/325 mg 1 by mouth every 12 hours as needed for pain. ALLERGIES: THE PATIENT IS ALLERGIC TO MORPHINE. REVIEW OF SYSTEMS: CONSTITUTIONAL: There is no fever, no chills, no diaphoresis. HEENT: There is no headache or sore throat. CARDIOVASCULAR SYSTEM: Soreness of the chest area noted. No orthopnea. RESPIRATORY SYSTEM: There is no shortness of breath or cough. GASTROINTESTINAL SYSTEM: There is no nausea, no vomiting, no abdominal pain, diarrhea or constipation. NEUROLOGICAL SYSTEM: There is no numbness, no dizziness, no altered mental status. MUSCULOSKELETAL SYSTEM: There is generalized body pain, especially in the back area and lower limbs. There is no joint swelling. DERMATOLOGICAL SYSTEM: There is no skin rash, but there is itching following the patient's treatment in the Emergency Room. GENITOURINARY SYSTEM: There is no dysuria, hematuria, or flank pain. Rest of system review is normal. PHYSICAL EXAMINATION: GENERAL: At the time of exam, the patient was found to be alert, oriented x 3 and in mild distress due to pain. VITAL SIGNS: At the initial time of presentation showed temperature of 98.8 degrees Fahrenheit, pulse of 102, respirations 16, blood pressure 172/94, O2 sat of 99% on room air. HEENT: Showed pupils to be equal, round, reactive to light and accommodating. Extraocular muscles are intact. NECK: Supple with no JVD or carotid bruit. CARDIOVASCULAR SYSTEM: Showed normal first and second heart sounds with no gallops or murmur. RESPIRATORY SYSTEM: Show good air entry on both sides of the lungs with no abnormal breath sounds and there is a port in the left anterior chest wall area. GASTROINTESTINAL SYSTEM: Show abdomen to be full, soft, nontender with no organomegaly or rigidity. NEUROLOGICAL EXAM: Shows no focal deficit. MUSCULOSKELETAL SYSTEM: Show no joint swelling or tenderness. DERMATOLOGICAL SYSTEM: Show no skin rash. GENITOURINARY SYSTEM: Showing no costovertebral angle tenderness. PERTINENT LABORATORY AND IMAGING STUDIES: The patient had chest x-ray done and chest x-ray shows no acute findings. The patient's lab results show CBC with elevated white count of 21,300, low hemoglobin of 7.9 and low hematocrit of 23.4 with CBC differential showing elevated segmented neutrophilic count. The patient's platelet level is elevated with a value of 469. The patient's percent reticulocyte count is 15.66 and the patient's chemistry shows normal electrolytes, slightly low calcium level of 8.3. DIAGNOSES: 1. Sickle cell pain crisis. 2. Hypertensive crisis. PLAN OF CARE: 1. The patient will be admitted to [facility] remote telemetry. 2. The patient will be on IV normal saline running at 125 mL an hour. 3. The patient will be on IV Dilaudid 1 mg every 4 hours as needed for pain and the patient will also be on IV Zofran 4 mg every 8 hours for nausea and vomiting. 4. The patient will be on IV Benadryl 25 mg every 6 hours as needed for itching. 5. The patient's diet will be low sodium diet. 6. The patient will be on IV hydralazine 10 mg every 4 hours for elevated blood pressure of 150/90 or more. 7. The patient will be on her home medication as shown in the medication reconciliation section. 8. The patient will be on heparin 5000 units subcutaneous q. 12 hours and sequential compressive device for DVT prophylaxis. JOB# [id number]
[2019-08-22] MEDS: DILAUDID IV PRN ×6 (06:17→22:32)
[2019-08-22] MEDS: BENADRYL IV PRN ×3 (06:18→19:36)
[2019-08-22] MEDS: NACL 0.9% 1000 ML 1,000 ML IV SCH ×2 (08:31→16:37)
[2019-08-22] MEDS: FOLVITE PO SCH (10:30)
[2019-08-22] MEDS: ZESTRIL PO SCH (10:30)
[2019-08-22] MEDS: CATAPRES PO SCH ×2 (10:30→22:38)
[2019-08-22] MEDS: HEPARIN SUB-Q SCH ×2 (10:32→22:34)
--- NOTE | 2019-08-22 11:34 | Progress Note ---
Assessment and Plan Assessment and plan: Sickle Cell Anemia with Crisis. Continue supportive care and pain control. Consider hematology consultation. Leukocytosis-Chronic and persistent. Etiology is stress induced from sickle cell crisis. Follow-up CBC. Hypertension. Resume antihypertensive medications. Morbid obesity. Patient will be counseled modifications. Chronic Opioid dependant syndrome History Interval history: No new issues overnight. Hospitalist Physical - Constitutional Vitals: Temp Pulse Resp BP Pulse Ox 98.2 F 80 19 163/82 97 08/22/19 08:15 08/22/19 08:15 08/22/19 08:15 08/22/19 10:31 08/22/19 08:15 General appearance: Present: no acute distress, well-nourished - EENT Eyes: Present: PERRL, EOM intact ENT: hearing intact, clear oral mucosa, dentition normal - Neck Neck: Present: supple, normal ROM - Respiratory Respiratory effort: normal Respiratory: bilateral: CTA - Cardiovascular Rhythm: regular Heart Sounds: Present: S1 & S2. Absent: gallop, rub - Extremities Extremities: no ischemia, No edema, Full ROM - Abdominal General gastrointestinal: soft, non-tender, non-distended, normal bowel sounds - Integumentary Integumentary: Present: clear, warm, dry - Neurologic Neurologic: CNII-XII intact, moves all extremities Results - Labs CBC & Chem 7: 08/22/19 01:31 08/22/19 01:31 Labs: Laboratory Last Values WBC 21.3 K/mm3 (4.5-11.0) H 08/22/19 01:31 RBC 2.47 M/mm3 (3.65-5.03) L 08/22/19 01:31 Hgb 7.9 gm/dl (10.1-14.3) L 08/22/19 01:31 Hct 23.4 % (30.3-42.9) L 08/22/19 01:31 MCV 95 fl (79-97) 08/22/19 01:31 MCH 32 pg (28-32) 08/22/19 01:31 MCHC 34 % (30-34) 08/22/19 01:31 RDW 22.3 % (13.2-15.2) H 08/22/19 01:31 Plt Count 467 K/mm3 (140-440) H 08/22/19 01:31 Add Manual Diff Complete 08/22/19 01:31 Total Counted 100 08/22/19 01:31 Seg Neuts % (Manual) 70.0 % (40.0-70.0) 08/22/19 01:31 Band Neutrophils % 0 % 08/22/19 01:31 Lymphocytes % (Manual) 24.0 % (13.4-35.0) 08/22/19 01:31 Reactive Lymphs % (Man) 0 % 08/22/19 01:31 Monocytes % (Manual) 3.0 % (0.0-7.3) 08/22/19 01:31 Eosinophils % (Manual) 2.0 % (0.0-4.3) 08/22/19 01:31 Basophils % (Manual) 1.0 % (0.0-1.8) 08/22/19 01:31 Metamyelocytes % 0 % 08/22/19 01:31 Myelocytes % 0 % 08/22/19 01:31 Promyelocytes % 0 % 08/22/19 01:31 Blast Cells % 0 % 08/22/19 01:31 Nucleated RBC % 7.0 % (0.0-0.9) H 08/22/19 01:31 Seg Neutrophils # Man 14.9 K/mm3 (1.8-7.7) H 08/22/19 01:31 Band Neutrophils # 0.0 K/mm3 08/22/19 01:31 Lymphocytes # (Manual) 5.1 K/mm3 (1.2-5.4) 08/22/19 01:31 Abs React Lymphs (Man) 0.0 K/mm3 08/22/19 01:31 Monocytes # (Manual) 0.6 K/mm3 (0.0-0.8) 08/22/19 01:31 Eosinophils # (Manual) 0.4 K/mm3 (0.0-0.4) 08/22/19 01:31 Basophils # (Manual) 0.2 K/mm3 (0.0-0.1) H 08/22/19 01:31 Metamyelocytes # 0.0 K/mm3 08/22/19 01:31 Myelocytes # 0.0 K/mm3 08/22/19 01:31 Promyelocytes # 0.0 K/mm3 08/22/19 01:31 Blast Cells # 0.0 K/mm3 08/22/19 01:31 WBC Morphology Not Reportable 08/22/19 01:31 Hypersegmented Neuts Not Reportable 08/22/19 01:31 Hyposegmented Neuts Not Reportable 08/22/19 01:31 Hypogranular Neuts Not Reportable 08/22/19 01:31 Smudge Cells Not Reportable 08/22/19 01:31 Toxic Granulation Not Reportable 08/22/19 01:31 Toxic Vacuolation Not Reportable 08/22/19 01:31 Dohle Bodies Not Reportable 08/22/19 01:31 Pelger-Huet Anomaly Not Reportable 08/22/19 01:31 Ariadne Rods Not Reportable 08/22/19 01:31 Platelet Estimate Consistent w auto 08/22/19 01:31 Clumped Platelets Not Reportable 08/22/19 01:31 Plt Clumps, EDTA Not Reportable 08/22/19 01:31 Large Platelets Not Reportable 08/22/19 01:31 Giant Platelets Not Reportable 08/22/19 01:31 Platelet Satelliting Not Reportable 08/22/19 01:31 Plt Morphology Comment Not Reportable 08/22/19 01:31 RBC Morphology Not Reportable 08/22/19 01:31 Dimorphic RBCs Not Reportable 08/22/19 01:31 Polychromasia Few 08/22/19 01:31 Hypochromasia Not Reportable 08/22/19 01:31 Poikilocytosis Not Reportable 08/22/19 01:31 Anisocytosis Not Reportable 08/22/19 01:31 Microcytosis 1+ 08/22/19 01:31 Macrocytosis Few 08/22/19 01:31 Spherocytes Not Reportable 08/22/19 01:31 Pappenheimer Bodies Not Reportable 08/22/19 01:31 Sickle Cells 1+ 08/22/19 01:31 Target Cells Rare 08/22/19 01:31 Tear Drop Cells Not Reportable 08/22/19 01:31 Ovalocytes Not Reportable 08/22/19 01:31 Helmet Cells Not Reportable 08/22/19 01:31 Walters-Krum Bodies Not Reportable 08/22/19 01:31 [place] Rings Not Reportable 08/22/19 01:31 [place] Cells Not Reportable 08/22/19 01:31 Bite Cells Not Reportable 08/22/19 01:31 Crenated Cell Not Reportable 08/22/19 01:31 Elliptocytes Not Reportable 08/22/19 01:31 Acanthocytes (Spur) Not Reportable 08/22/19 01:31 Rouleaux Not Reportable 08/22/19 01:31 Hemoglobin C Crystals Not Reportable 08/22/19 01:31 Schistocytes Not Reportable 08/22/19 01:31 Malaria parasites Not Reportable 08/22/19 01:31 Percent Retic 15.66 % (0.78-2.58) H 08/22/19 01:31 Alexis Bodies Not Reportable 08/22/19 01:31 Hem Pathologist Commnt No 08/22/19 01:31 Sodium 137 mmol/L (137-145) 08/22/19 01:31 Potassium 4.0 mmol/L (3.6-5.0) 08/22/19 01:31 Chloride 101.6 mmol/L (98-107) 08/22/19 01:31 Carbon Dioxide 23 mmol/L (22-30) 08/22/19 01:31 Anion Gap 16 mmol/L 08/22/19 01:31 BUN 14 mg/dL (7-17) 08/22/19 01:31 Creatinine 1.0 mg/dL (0.7-1.2) 08/22/19 01:31 Estimated GFR > 60 ml/min 08/22/19 01:31 BUN/Creatinine Ratio 14 % 08/22/19 01:31 Glucose 107 mg/dL (65-100) H 08/22/19 01:31 Calcium 8.3 mg/dL (8.4-10.2) L 08/22/19 01:31 Troponin T < 0.010 ng/mL (0.00-0.029) 08/22/19 01:31 Active Medications - Current Medications Current Medications: Generic Name Dose Route Start Last Admin Trade Name Freq PRN Reason Stop Dose Admin Acetaminophen 650 mg 08/22/19 04:54 Tylenol PO Q4H PRN Fever >101 Amlodipine Besylate 10 mg 08/22/19 10:00 08/22/19 10:31 Norvasc PO 10 mg QDAY CARIE Administration Clonidine HCl 0.2 mg 08/22/19 10:00 08/22/19 10:30 Catapres PO 0.2 mg BID CARIE Administration Diphenhydramine HCl 25 mg 08/22/19 04:52 08/22/19 06:18 Benadryl IV 25 mg Q6H PRN Administration Itching Folic Acid 1 mg 08/22/19 10:00 08/22/19 10:30 Folvite PO 1 mg DAILY CARIE Administration Heparin Sodium (Porcine) 5,000 unit 08/22/19 10:00 08/22/19 10:32 Heparin SUB-Q 5,000 unit Q12HR CARIE Administration Hydralazine HCl 10 mg 08/22/19 04:55 Apresoline IV Q4H PRN Blood Pressure Hydromorphone HCl 1 mg 08/22/19 04:51 08/22/19 10:26 Dilaudid IV 1 mg Q4H PRN Administration Pain , Severe (7-10) Hydroxyurea 500 mg 08/22/19 10:00 Hydrea PO DAILY CARIE Sodium Chloride 1,000 mls @ 125 mls/hr 08/22/19 05:00 08/22/19 08:31 Nacl 0.9% 1000 Ml IV 125 mls/hr DIRECT CARIE Administration Lisinopril 40 mg 08/22/19 10:00 08/22/19 10:30 Zestril PO 40 mg QDAY CARIE Administration Ondansetron HCl 4 mg 08/22/19 04:52 Zofran IV Q8H PRN Nausea And Vomiting
[2019-08-22] MEDS: HYDROXYUREA PO SCH (18:18)
[2019-08-23] MEDS: NACL 0.9% 1000 ML 1,000 ML IV SCH ×2 (01:35→10:29)
[2019-08-23] MEDS: BENADRYL IV PRN ×3 (01:41→08:10)
[2019-08-23] MEDS: DILAUDID IV PRN ×5 (01:45→11:15)
[2019-08-23] MEDS: FOLVITE PO SCH (10:33)
[2019-08-23] MEDS: ZESTRIL PO SCH (10:33)
[2019-08-23] MEDS: HEPARIN SUB-Q SCH (10:34)
[2019-08-23] MEDS: CATAPRES PO SCH (10:35)
[2019-08-23] MEDS: HYDROXYUREA PO SCH (11:19)
[2019-08-23] MEDS ORDERED: AFLURIA QUAD 2019-2020 (3YR UP) IM ONE (12:00)
[2019-08-23] MEDS ORDERED: FLUSH HEPARIN IV ONE (12:07)
--- NOTE | 2019-08-23 12:15 | Discharge Summary ---
Providers - Providers Date of Admission: 08/22/19 04:48 Date of discharge: 08/23/19 Attending physician: CLINTON PAINTING Primary care physician: MACHINE SIGN WRITER Hospitalization Reason for admission: pain crisis Condition: Fair Hospital course: 34-year-old female with history of hypertension, sickle cell disease, chronic pain syndrome and sickle cell anemia who presented with vaso-occlusive crisis. Patient treated with appropriate IV pain medication, IV fluid and conservative management. Patient had significant improvement in his filter received maximal hospital benefit of discharge. Patient is to follow-up with her director of residence life in a couple weeks. Dedicated discharge time 32 minutes. Disposition: DC-01 TO HOME OR SELFCARE Time spent for discharge: 32 - Discharge Diagnoses (1) HTN (hypertension) Status: Acute Qualifiers: Hypertension type: essential hypertension Qualified Code(s): I10 - Essential (primary) hypertension (2) Sickle cell anemia with crisis Status: Acute (3) Sickle cell pain crisis Status: Acute (4) Anemia Status: Acute Qualifiers: Anemia type: unspecified type Qualified Code(s): D64.9 - Anemia, unspecified Core Measure Documentation - Palliative Care Palliative Care/ Comfort Measures: Not Applicable - Core Measures Any of the following diagnoses?: none Exam - Constitutional Vitals: Temp Pulse Resp BP Pulse Ox 98.0 F 86 16 125/66 100 08/23/19 04:35 08/23/19 04:35 08/23/19 04:35 08/23/19 04:35 08/23/19 04:35 General appearance: Present: no acute distress, well-nourished - EENT Eyes: Present: PERRL ENT: hearing intact, clear oral mucosa - Neck Neck: Present: supple, normal ROM - Respiratory Respiratory effort: normal Respiratory: bilateral: CTA - Cardiovascular Heart Sounds: Present: S1 & S2. Absent: rub, click - Extremities Extremities: pulses symmetrical, No edema Peripheral Pulses: within normal limits - Abdominal General gastrointestinal: Present: soft, non-tender, non-distended, normal bowel sounds Female genitourinary: Present: normal - Integumentary Integumentary: Present: clear, warm, dry - Musculoskeletal Musculoskeletal: gait normal, strength equal bilaterally - Psychiatric Psychiatric: appropriate mood/affect, intact judgment & insight - Neurologic Neurologic: CNII-XII intact, moves all extremities Plan Activity: no restrictions Weight Bearing Status: Full Weight Bearing Diet: regular Follow up with: PRIMARY CARE, [Primary Care Provider] - 3-5 Days Prescriptions: cloNIDine [Catapres] 0.2 mg PO BID #60 Folic Acid [Folvite] 1 mg PO DAILY #30 tablet Hydroxyurea [Hydrea] 500 mg PO DAILY #30 cap amLODIPine [Norvasc] 10 mg PO QDAY #30 tablet Oxycodone HCl/Acetaminophen [Percocet 10/325 mg] 1 each PO Q12H PRN #6 tablet PRN Reason: Pain , Severe (7-10) Lisinopril [Zestril TAB] 40 mg PO QDAY #30 tablet
[2019-08-23 12:40] VITALS: BP 109/60
== END 2019-08-23 13:30 | disposition home or self-care (01) ==
LOC: SUATTDRO 00:09 → ED 00:09 → INTOOBSV 04:48 → 3A 04:48
PROVIDERS: ADMIT Internal Medicine; ATTEND Hospitalist
DX: D57.00 Hb-SS disease with crisis, unspecified (principal); I10 Essential (primary) hypertension; M19.90 Unspecified osteoarthritis, unspecified site; J45.909 Unspecified asthma, uncomplicated; D72.829 Elevated white blood cell count, unspecified; Z90.49 Acquired absence of other specified parts of digestive tract; Z98.891 History of uterine scar from previous surgery
CPT/HCPCS: 36415; 71045; 80048; 84484; 85007; 85025; 85045; 87116; 93005; 93010; 96372; 96374; 96375; 96376; 99284; G0378; J0360; J1170; J1200; J1642; J1644; J2405; J7030; 90686

== ENCOUNTER 2019-08-27 00:23 | Emergency (ER) | payer MEDICAID ==
[2019-08-27] MEDS ORDERED: ZOFRAN IV ONE ×2 (06:45→08:12)
[2019-08-27] MEDS ORDERED: TORADOL IV ONE (06:45)
[2019-08-27] MEDS ORDERED: BENADRYL IV ONE ×2 (06:45→08:12)
[2019-08-27] MEDS ORDERED: DILAUDID IV ONE ×3 (06:45→08:13)
[2019-08-27] MEDS ORDERED: D5NS 0.2% 1,000 ML IV SCH (07:00)
[2019-08-27] MEDS ORDERED: DILAUDID ONE (07:09)
[2019-08-27] MEDS ORDERED: NACL 0.9% 1000 ML 1,000 ML IV ONE (07:13)
--- NOTE | 2019-08-27 07:13 | Emergency Department Report ---
ED General Adult HPI - General Chief complaint: Sickle Cell Crisis Stated complaint: SICKLE CELL PAIN Time Seen by Provider: 08/27/19 07:06 Source: patient Mode of arrival: Ambulatory Limitations: No Limitations - History of Present Illness Initial comments: is a 34-year-old female that presents emergency room with complaints of sickle cell pain. Patient states 7 pain all over. Patient states her pain started at midnight. Patient states the pain is worsening. Patient states she has been taking her sickle cell medications. Patient states taking oxycodone but it stopped helping. Patient denies chest pain. Patient states her pain is mostly in her legs and back. Patient states her primary care is Dr. Torres. Patient denies fever and chills. Patient denies shortness of breath. -: Sudden Location: back, upper extremity, lower extremity Radiation: non-radiation Severity scale (0 -10): 10 Quality: stabbing Consistency: constant Improves with: rest Worsens with: movement Associated Symptoms: denies: confusion, chest pain, cough, diaphoresis, fever/chills, headaches, loss of appetite, malaise, nausea/vomiting, rash, seizure, shortness of breath, syncope, weakness Treatments Prior to Arrival: other - Related Data Home Medications Medication Instructions Recorded Confirmed Last Taken Methadone [Dolophine] 20 mg PO BID 03/19/19 08/22/19 08/18/19 Previous Rx's Medication Instructions Recorded Last Taken Type Acetaminophen [Non-Aspirin Extra 500 mg PO Q6HR PRN #30 tablet 06/02/19 08/15/19 Rx Strength] Ondansetron [Zofran ODT TAB] 4 mg PO Q8HR PRN #20 tab.rapdis 06/02/19 08/15/19 Rx Folic Acid [Folvite] 1 mg PO DAILY #30 tablet 08/23/19 Unknown Rx Hydroxyurea 500 mg PO DAILY #30 cap 08/23/19 Unknown Rx Lisinopril [Zestril TAB] 40 mg PO QDAY #30 tablet 08/23/19 Unknown Rx Oxycodone HCl/Acetaminophen 1 each PO Q12H PRN #6 tablet 08/23/19 Unknown Rx [Percocet 10/325 mg] amLODIPine 10 mg PO QDAY #30 tablet 08/23/19 Unknown Rx cloNIDine [Catapres] 0.2 mg PO BID #60 08/23/19 Unknown Rx Allergies Allergy/AdvReac Type Severity Reaction Status Date / Time morphine Allergy Shortness Verified 06/25/19 08:38 of Breath ED Review of Systems ROS: Stated complaint: SICKLE CELL PAIN Other details as noted in HPI Constitutional: denies: chills, fever Eyes: denies: eye pain, eye discharge, vision change ENT: denies: ear pain, throat pain Respiratory: denies: cough, shortness of breath, wheezing Cardiovascular: denies: chest pain, palpitations Endocrine: no symptoms reported Gastrointestinal: denies: abdominal pain, nausea, diarrhea Genitourinary: denies: urgency, dysuria, discharge Musculoskeletal: back pain. denies: joint swelling, arthralgia Skin: denies: rash, lesions Neurological: denies: headache, weakness, paresthesias Psychiatric: denies: anxiety, depression Hematological/Lymphatic: denies: easy bleeding, easy bruising ED Past Medical Hx - Past Medical History Previous Medical History?: Yes Hx Hypertension: Yes Hx CVA: No Hx Heart Attack/AMI: No Hx Congestive Heart Failure: No Hx Diabetes: No Hx Sickle Cell Disease: Yes Hx Arthritis: Yes Hx Asthma: Yes Hx COPD: No Hx HIV: No Additional medical history: ANEMIA, multiple port infections - Surgical History Past Surgical History?: Yes Hx Cholecystectomy: Yes Additional Surgical History: , port removed June 2014. PICC line left upper arm (11/19/2014). . - Social History Smoking Status: Never Smoker - Medications Home Medications: Home Medications Medication Instructions Recorded Confirmed Last Taken Type Methadone [Dolophine] 20 mg PO BID 03/19/19 08/22/19 08/18/19 History Acetaminophen [Non-Aspirin Extra 500 mg PO Q6HR PRN #30 tablet 06/02/19 08/22/19 08/15/19 Rx Strength] Ondansetron [Zofran ODT TAB] 4 mg PO Q8HR PRN #20 tab.rapdis 06/02/19 08/22/19 08/15/19 Rx Folic Acid [Folvite] 1 mg PO DAILY #30 tablet 08/23/19 Unknown Rx Hydroxyurea 500 mg PO DAILY #30 cap 08/23/19 Unknown Rx Lisinopril [Zestril TAB] 40 mg PO QDAY #30 tablet 08/23/19 Unknown Rx Oxycodone HCl/Acetaminophen 1 each PO Q12H PRN #6 tablet 08/23/19 Unknown Rx [Percocet 10/325 mg] amLODIPine 10 mg PO QDAY #30 tablet 08/23/19 Unknown Rx cloNIDine [Catapres] 0.2 mg PO BID #60 08/23/19 Unknown Rx ED Physical Exam - General Limitations: No Limitations General appearance: alert, in no apparent distress - Head Head exam: Present: atraumatic, normocephalic - Eye Eye exam: Present: normal appearance - ENT ENT exam: Present: mucous membranes moist - Neck Neck exam: Present: normal inspection - Respiratory Respiratory exam: Present: normal lung sounds bilaterally. Absent: respiratory distress - Cardiovascular Cardiovascular Exam: Present: regular rate, normal rhythm. Absent: systolic murmur, diastolic murmur, rubs, gallop - GI/Abdominal GI/Abdominal exam: Present: soft, normal bowel sounds - Extremities Exam Extremities exam: Present: normal inspection - Back Exam Back exam: Present: normal inspection - Neurological Exam Neurological exam: Present: alert, oriented X3 - Psychiatric Psychiatric exam: Present: normal affect, normal mood - Skin Skin exam: Present: warm, dry, intact, normal color. Absent: rash ED Course Vital Signs 08/27/19 08/27/19 07:39 09:00 Temperature 98.5 F 98.8 F Pulse Rate 79 89 Respiratory 20 20 Rate Blood Pressure 156/81 Blood Pressure 156/81 [Left] O2 Sat by Pulse 100 92 Oximetry - Reevaluation(s) Reevaluation #1: Patient complaining of 10 out of 10 pain. Patient will be given another dose of Dilaudid. 08/27/19 08:01 Reevaluation #2: I discussed all results with patient. I discussed plan of care patient. Patient wants to try to go home. Patient given another milligram of Dilaudid. 08/27/19 08:57 Reevaluation #3: I discussed all results with patient. I discussed my plan of care and admission with patient. Patient states she cannot stay. Patient states she has to do. Patient states her pain is better. Patient signed AMA form. I discussed the risks with the patient of leaving the hospital AGAINST MEDICAL ADVICE. Patient voiced understanding of directions. Patient signed AMA form. Patient is of sound mind and body. For the patient's itching patient will be given 80 mg of Solu-Medrol. 10/23/19 09:48 ED Medical Decision Making - Lab Data Result diagrams: 08/27/19 06:49 08/27/19 07:19 - Medical Decision Making Patient is a 34-year-old female that presents emergency room with sickle cell pain crisis. Patient complains of limb pain and back pain. Patient denied chest pain. Patient's labs unremarkable except for anemia and elevated reticulocyte count. Patient given multiple doses of medications and fluids. Patient's pain improved. Discussed admission with the patient however the patient refused. Patient signed out AMA. I discussed all the risks with patient. Patient voiced understanding of wrist. Patient given discharge instructions. - Differential Diagnosis scc. pain. back pain. Critical Care Time: Yes Critical care time in (mins) excluding proc time.: 35 Critical care attestation.: If time is entered above; I have spent that time in minutes in the direct care of this critically ill patient, excluding procedure time. Critical Care Time: 35 minutes ED Disposition Clinical Impression: Anemia, sickle cell with crisis, Sickle cell pain crisis Sickle cell disease Qualifiers: Sickle-cell associated disorders: with unspecified crisis Qualified Code(s): D57.00 - Hb-SS disease with crisis, unspecified Back pain Qualifiers: Back pain location: low back pain Chronicity: acute Back pain laterality: midline Sciatica presence: without sciatica Qualified Code(s): M54.5 - Low back pain Disposition: 07 LEFT AGAINST MED ADVICE Is pt being admited?: No Does the pt Need Aspirin: No Condition: Critical Instructions: Sickle Cell Crisis (ED) Additional Instructions: Patient to follow-up with primary care in 2-3 days. Patient to return to ER condition worsens. Patient increase water. Patient take Tylenol or ibuprofen when necessary for pain. Patient to continue all other medications. Referrals: PRIMARY CARE, [Primary Care Provider] - 2-3 Days Time of Disposition: 09:49
[2019-08-27 07:30] LABS: Hematocrit 21.5 % (30.3-42.9); Hemoglobin 7.3 gm/dl (10.1-14.3); Mean Corpuscular HGB Conc 34 % (30-34); Mean Corpuscular Volume 92 fl (79-97); Platelet Count 563 K/mm3 (140-440); Red Blood Count 2.34 M/mm3 (3.65-5.03)
[2019-08-27 08:15] LABS: Alanine Aminotransferase 43 units/L (7-56); Albumin 3.7 g/dL (3.9-5); BUN/Creatinine Ratio 11; Blood Urea Nitrogen 10 mg/dL (7-17); Calcium 8.8 mg/dL (8.4-10.2); Hemolysis Index 11
[2019-08-27 09:02] VITALS: BP 156/81
[2019-08-27] MEDS ORDERED: SOLU-Medrol ONE (09:49)
[2019-08-27] MEDS ORDERED: SOLU-Medrol IV ONE (09:51)
[2019-08-27] MEDS ORDERED: FLUSH HEPARIN IV ONE (10:00)
[2019-08-27 10:31] LABS: Basophils % (Manual) 0 % (0.0-1.8); Total Cells Counted 100
[2019-08-27 10:32] LABS: Anisocytosis 1+; Macrocytosis Few; Platelet Estimate Consistent w Auto; Poikilocytosis 1+; Sickle Cells 2+; Target Cells Few
== END 2019-08-27 10:10 | disposition left against medical advice (07) ==
LOC: ED 00:23
DX: D57.00 Hb-SS disease with crisis, unspecified (principal); I10 Essential (primary) hypertension; M19.90 Unspecified osteoarthritis, unspecified site; J45.909 Unspecified asthma, uncomplicated; Z90.49 Acquired absence of other specified parts of digestive tract; Z88.5 Allergy status to narcotic agent; Z79.899 Other long term (current) drug therapy
CPT/HCPCS: 36415; 80053; 85007; 85025; 85045; 96374; 96375; 96376; 99283; J1170; J1200; J1642; J1885; J2405; J2920; J7030

== ENCOUNTER 2019-09-03 08:20 | Emergency (ER) | payer MEDICAID ==
--- NOTE | 2019-09-03 10:00 | Emergency Department Report ---
ED General Adult HPI - General Chief complaint: Sickle Cell Crisis Stated complaint: SICKLE CELL CRISIS Time Seen by Provider: 09/03/19 09:59 Source: patient Mode of arrival: Ambulatory Limitations: No Limitations - History of Present Illness Initial comments: 34-year-old -[place] female with a medical history of sickle cell disease comes in for complaint of generalized body pain to her back and legs that started yesterday. Patient reports that this is her typical pain. She denies any shortness of breathing chest pain or recent falls. Patient states that she's been taking her Percocet 10 mg over 325 last dose this morning. She denies any fever or chills no nausea no vomiting. Patient does report she is currently on her menses. Onset/Timin -: days(s) Location: back, lower extremity Severity scale (0 -10): 8 Quality: aching Consistency: constant Improves with: none Worsens with: none Associated Symptoms: denies other symptoms Treatments Prior to Arrival: other (Percocet 10/325 this morning) - Related Data Home Medications Medication Instructions Recorded Confirmed Last Taken Methadone [Dolophine] 20 mg PO BID 03/19/19 08/22/19 08/18/19 Previous Rx's Medication Instructions Recorded Last Taken Type Acetaminophen [Non-Aspirin Extra 500 mg PO Q6HR PRN #30 tablet 06/02/19 08/15/19 Rx Strength] Ondansetron [Zofran ODT TAB] 4 mg PO Q8HR PRN #20 tab.rapdis 06/02/19 08/15/19 Rx Folic Acid [Folvite] 1 mg PO DAILY #30 tablet 08/23/19 Unknown Rx Hydroxyurea 500 mg PO DAILY #30 cap 08/23/19 Unknown Rx Lisinopril [Zestril TAB] 40 mg PO QDAY #30 tablet 08/23/19 Unknown Rx Oxycodone HCl/Acetaminophen 1 each PO Q12H PRN #6 tablet 08/23/19 Unknown Rx [Percocet 10/325 mg] amLODIPine 10 mg PO QDAY #30 tablet 08/23/19 Unknown Rx cloNIDine [Catapres] 0.2 mg PO BID #60 08/23/19 Unknown Rx Allergies Allergy/AdvReac Type Severity Reaction Status Date / Time morphine Allergy Shortness Verified 06/25/19 08:38 of Breath ED Review of Systems ROS: Stated complaint: SICKLE CELL CRISIS Other details as noted in HPI Comment: All other systems reviewed and negative ED Past Medical Hx - Past Medical History Previous Medical History?: Yes Hx Hypertension: Yes Hx CVA: No Hx Heart Attack/AMI: No Hx Congestive Heart Failure: No Hx Diabetes: No Hx Sickle Cell Disease: Yes Hx Arthritis: Yes Hx Asthma: Yes Hx COPD: No Hx HIV: No Additional medical history: ANEMIA, multiple port infections - Surgical History Past Surgical History?: Yes Hx Cholecystectomy: Yes Additional Surgical History: , port removed June 2014. PICC line left upper arm (11/19/2014). . - Social History Smoking Status: Never Smoker Substance Use Type: None - Medications Home Medications: Home Medications Medication Instructions Recorded Confirmed Last Taken Type Methadone [Dolophine] 20 mg PO BID 03/19/19 08/22/19 08/18/19 History Acetaminophen [Non-Aspirin Extra 500 mg PO Q6HR PRN #30 tablet 06/02/19 08/22/19 08/15/19 Rx Strength] Ondansetron [Zofran ODT TAB] 4 mg PO Q8HR PRN #20 tab.rapdis 06/02/19 08/22/19 08/15/19 Rx Folic Acid [Folvite] 1 mg PO DAILY #30 tablet 08/23/19 Unknown Rx Hydroxyurea 500 mg PO DAILY #30 cap 08/23/19 Unknown Rx Lisinopril [Zestril TAB] 40 mg PO QDAY #30 tablet 08/23/19 Unknown Rx Oxycodone HCl/Acetaminophen 1 each PO Q12H PRN #6 tablet 08/23/19 Unknown Rx [Percocet 10/325 mg] amLODIPine 10 mg PO QDAY #30 tablet 08/23/19 Unknown Rx cloNIDine [Catapres] 0.2 mg PO BID #60 08/23/19 Unknown Rx ED Physical Exam - General Limitations: No Limitations General appearance: alert, in no apparent distress - Head Head exam: Present: atraumatic, normocephalic - Eye Eye exam: Present: normal appearance, EOMI - ENT ENT exam: Present: mucous membranes moist - Neck Neck exam: Present: normal inspection, full ROM - Respiratory Respiratory exam: Present: normal lung sounds bilaterally. Absent: respiratory distress - Cardiovascular Cardiovascular Exam: Present: regular rate, normal rhythm. Absent: systolic murmur, diastolic murmur, rubs, gallop - GI/Abdominal GI/Abdominal exam: Present: soft, normal bowel sounds. Absent: distended, tenderness - Extremities Exam Extremities exam: Present: tenderness (lower) - Back Exam Back exam: Present: full ROM, tenderness - Neurological Exam Neurological exam: Present: alert, oriented X3 - Psychiatric Psychiatric exam: Present: normal affect, normal mood - Skin Skin exam: Present: warm, dry, intact, normal color. Absent: rash ED Medical Decision Making - Medical Decision Making 34-year-old -[place] female with a medical history of sickle cell disease comes in for complaint of generalized body pain to her back and legs that started yesterday. Patient reports that this is her typical pain. She denies any shortness of breathing chest pain or recent falls. Patient states that she's been taking her Percocet 10 mg over 325 last dose this morning. She denies any fever or chills no nausea no vomiting. Patient does report she is currently on her menses. Critical care attestation.: If time is entered above; I have spent that time in minutes in the direct care of this critically ill patient, excluding procedure time. ED Disposition Condition: Stable
[2019-09-03] MEDS ORDERED: SODIUM CHLORIDE 0.9% 1000 ML 1,000 ML IV ONE (10:06)
[2019-09-03] MEDS ORDERED: ONDANSETRON 4 MG/2 ML INJ IV ONE ×2 (10:06→12:54)
[2019-09-03] MEDS ORDERED: HYDROmorphone 1 MG/1 ML INJ IV ONE ×3 (10:06→12:54)
[2019-09-03] MEDS ORDERED: diphenhydrAMINE 50 MG/ML VIAL IV ONE ×2 (10:06→12:54)
[2019-09-03 11:24] LABS: Hematocrit 25.6 % (30.3-42.9); Hemoglobin 8.5 gm/dl (10.1-14.3); Mean Corpuscular HGB Conc 33 % (30-34); Mean Corpuscular Volume 101 fl (79-97); Platelet Count 421 K/mm3 (140-440); Red Blood Count 2.55 M/mm3 (3.65-5.03)
[2019-09-03 11:26] LABS: Red Cell Distribution Width 29.4 % (13.2-15.2)
[2019-09-03 11:27] VITALS: BP 166/93
[2019-09-03 11:37] LABS: INR 0.96 (0.87-1.13)
[2019-09-03 11:43] LABS: BUN/Creatinine Ratio 10; Blood Urea Nitrogen 9 mg/dL (7-17); Calcium 8.5 mg/dL (8.4-10.2); Hemolysis Index 39
[2019-09-03 12:45] LABS: Basophils % (Manual) 0 % (0.0-1.8); Total Cells Counted 100
[2019-09-03 12:48] LABS: Anisocytosis 3+; Macrocytosis Few; Poikilocytosis 3+; Sickle Cells 2+
[2019-09-03 12:49] LABS: Platelet Estimate Consistent w Auto; Target Cells Few
== END 2019-09-03 13:45 | disposition home or self-care (01) ==
LOC: ED 08:20
DX: D57.00 Hb-SS disease with crisis, unspecified (principal); I10 Essential (primary) hypertension; J45.909 Unspecified asthma, uncomplicated; Z79.899 Other long term (current) drug therapy; Z88.5 Allergy status to narcotic agent; Z86.2 Personal history of diseases of the blood and blood-forming organs and certain disorders involving the immune mechanism; Z90.49 Acquired absence of other specified parts of digestive tract
CPT/HCPCS: 36415; 80048; 84703; 85007; 85025; 85045; 85610; 96374; 96375; 96376; 99284; J1170; J1200; J1642; J2405; J7030

== ENCOUNTER 2019-09-09 22:12 | Emergency (ER) | payer MEDICAID ==
[2019-09-09] MEDS ORDERED: SODIUM CHLORIDE 0.9% 1000 ML 1,000 ML IV ONE ×2 (22:29→23:32)
--- NOTE | 2019-09-09 22:29 | Event Note ---
ED Screening Note Date of service: 09/09/19 Time: 22:26 ED Screening Note: Pt with hx of Sickle cell disease and HTN presents to ED with c/o flare up of her sickle cell. Onset yesterday. c/o pain all over which is typical of her sickle pain. +nausea, and SOB but no chest pain. No UTI symptoms. No fever at home. Not out of her percocet but not helping with pain. Took her last dose of clonidine earlier today. This initial assessment/diagnostic orders/clinical plan/treatment(s) is/are subject to change based on patients health status, clinical progression and re- assessment by fellow clinical providers in the ED. Further treatment and workup at subsequent clinical providers discretion. Patient/guardian urged not to elope from the ED as their condition may be serious if not clinically assessed and managed. Initial orders include: labs, fluids,
[2019-09-09] MEDS ORDERED: cloNIDine 0.2 MG TAB PO ONE (22:30)
[2019-09-09] MEDS ORDERED: KETOROLAC 30 MG/1 ML INJ IV ONE (23:32)
[2019-09-09] MEDS ORDERED: HYDROmorphone 1 MG/1 ML INJ IV ONE (23:32)
[2019-09-09] MEDS ORDERED: diphenhydrAMINE 50 MG/ML VIAL IV ONE (23:36)
[2019-09-09] MEDS ORDERED: ONDANSETRON 4 MG/2 ML INJ IV ONE (23:36)
[2019-09-09] MEDS ORDERED: ONDANSETRON 4 MG/2 ML INJ ONE (23:39)
[2019-09-09 23:47] LABS: Alanine Aminotransferase 38 units/L (7-56); Albumin 3.2 g/dL (3.9-5); BUN/Creatinine Ratio 14; Blood Urea Nitrogen 14 mg/dL (7-17); Calcium 8.7 mg/dL (8.4-10.2); Hemolysis Index 19
[2019-09-10 00:16] LABS: Hematocrit 22.8 % (30.3-42.9); Hemoglobin 7.5 gm/dl (10.1-14.3); Mean Corpuscular HGB Conc 33 % (30-34); Mean Corpuscular Volume 100 fl (79-97); Platelet Count 305 K/mm3 (140-440); Red Blood Count 2.28 M/mm3 (3.65-5.03)
[2019-09-10] MEDS ORDERED: HYDROmorphone 1 MG/1 ML INJ IV ONE (01:06)
[2019-09-10] MEDS ORDERED: diphenhydrAMINE 50 MG/ML VIAL IV ONE (01:07)
[2019-09-10 02:20] VITALS: BP 161/83
--- NOTE | 2019-09-10 02:20 | Emergency Department Report ---
ED General Adult HPI - General Chief complaint: Sickle Cell Crisis Stated complaint: SICKLE CELL CRISIS Time Seen by Provider: 09/09/19 22:25 Source: patient Mode of arrival: Ambulatory Limitations: No Limitations - History of Present Illness Initial comments: Patient is a 34-year-old [place] female history of sickle cell disease who is presenting with aching all over especially in the lower legs. Patient states symptoms started yesterday. He says is typical of her sickle cell pain crises. Patient also is complaining of a mild productive cough. States abusing this is a yellowish in nature there's mild shortness of breath. She denies f cristiano nausea vomiting diarrhea neck stiffness a sore throat this time. Patient's blood pressure is elevated but she states she did not take her night dose of clonidine. Patient denies chest pain focal neurological deficits are severe headache. Severity scale (0 -10): 8 - Related Data Home Medications Medication Instructions Recorded Confirmed Last Taken Methadone [Dolophine] 20 mg PO BID 03/19/19 08/22/19 08/18/19 Previous Rx's Medication Instructions Recorded Last Taken Type Acetaminophen [Non-Aspirin Extra 500 mg PO Q6HR PRN #30 tablet 06/02/19 08/15/19 Rx Strength] Ondansetron [Zofran ODT TAB] 4 mg PO Q8HR PRN #20 tab.rapdis 06/02/19 08/15/19 Rx Folic Acid [Folvite] 1 mg PO DAILY #30 tablet 08/23/19 Unknown Rx Hydroxyurea 500 mg PO DAILY #30 cap 08/23/19 Unknown Rx Lisinopril [Zestril TAB] 40 mg PO QDAY #30 tablet 08/23/19 Unknown Rx Oxycodone HCl/Acetaminophen 1 each PO Q12H PRN #6 tablet 08/23/19 Unknown Rx [Percocet 10/325 mg] amLODIPine 10 mg PO QDAY #30 tablet 08/23/19 Unknown Rx cloNIDine [Catapres] 0.2 mg PO BID #60 08/23/19 Unknown Rx ALBUTEROL Inhaler (OR & NICU) 2 puff IH QID PRN #1 inhalation 09/10/19 Unknown Rx [ProAir HFA Inhaler] predniSONE [Deltasone] 20 mg PO QDAY #5 tab 09/10/19 Unknown Rx Allergies Allergy/AdvReac Type Severity Reaction Status Date / Time morphine Allergy Shortness Verified 06/25/19 08:38 of Breath ED Review of Systems ROS: Stated complaint: SICKLE CELL CRISIS Other details as noted in HPI Comment: All other systems reviewed and negative ED Past Medical Hx - Past Medical History Previous Medical History?: Yes Hx Hypertension: Yes Hx CVA: No Hx Heart Attack/AMI: No Hx Congestive Heart Failure: No Hx Diabetes: No Hx Sickle Cell Disease: Yes Hx Arthritis: Yes Hx Asthma: Yes Hx COPD: No Hx HIV: No Additional medical history: ANEMIA, multiple port infections - Surgical History Past Surgical History?: Yes Hx Cholecystectomy: Yes Additional Surgical History: , port removed June 2014. PICC line left upper arm (11/19/2014). . - Social History Smoking Status: Never Smoker Substance Use Type: None - Medications Home Medications: Home Medications Medication Instructions Recorded Confirmed Last Taken Type Methadone [Dolophine] 20 mg PO BID 03/19/19 08/22/19 08/18/19 History Acetaminophen [Non-Aspirin Extra 500 mg PO Q6HR PRN #30 tablet 06/02/19 08/22/19 08/15/19 Rx Strength] Ondansetron [Zofran ODT TAB] 4 mg PO Q8HR PRN #20 tab.rapdis 06/02/19 08/22/19 08/15/19 Rx Folic Acid [Folvite] 1 mg PO DAILY #30 tablet 08/23/19 Unknown Rx Hydroxyurea 500 mg PO DAILY #30 cap 08/23/19 Unknown Rx Lisinopril [Zestril TAB] 40 mg PO QDAY #30 tablet 08/23/19 Unknown Rx Oxycodone HCl/Acetaminophen 1 each PO Q12H PRN #6 tablet 08/23/19 Unknown Rx [Percocet 10/325 mg] amLODIPine 10 mg PO QDAY #30 tablet 08/23/19 Unknown Rx cloNIDine [Catapres] 0.2 mg PO BID #60 08/23/19 Unknown Rx ALBUTEROL Inhaler (OR & NICU) 2 puff IH QID PRN #1 inhalation 09/10/19 Unknown Rx [ProAir HFA Inhaler] predniSONE [Deltasone] 20 mg PO QDAY #5 tab 09/10/19 Unknown Rx ED Physical Exam - General Limitations: No Limitations General appearance: alert, in no apparent distress - Head Head exam: Present: atraumatic, normocephalic - Eye Eye exam: Present: normal appearance - ENT ENT exam: Present: mucous membranes moist - Neck Neck exam: Present: normal inspection - Respiratory Respiratory exam: Present: normal lung sounds bilaterally. Absent: respiratory distress - Cardiovascular Cardiovascular Exam: Present: regular rate, normal rhythm. Absent: systolic murmur, diastolic murmur, rubs, gallop - GI/Abdominal GI/Abdominal exam: Present: soft, normal bowel sounds - Extremities Exam Extremities exam: Present: normal inspection - Back Exam Back exam: Present: normal inspection - Neurological Exam Neurological exam: Present: alert, oriented X3 - Psychiatric Psychiatric exam: Present: normal affect, normal mood - Skin Skin exam: Present: warm, dry, intact, normal color. Absent: rash ED Course Vital Signs 09/09/19 09/09/19 09/09/19 22:19 23:18 23:30 Temperature 98.7 F Pulse Rate 97 H 95 H 95 H Respiratory 20 19 Rate Blood Pressure 216/121 201/107 Blood Pressure 201/107 [Right] O2 Sat by Pulse 92 95 Oximetry 09/09/19 09/09/19 09/10/19 23:53 23:56 01:05 Temperature Pulse Rate 94 H 95 H Respiratory 19 16 16 Rate Blood Pressure Blood Pressure 190/97 177/70 [Right] O2 Sat by Pulse 96 95 95 Oximetry ED Medical Decision Making - Lab Data Result diagrams: 09/09/19 23:13 09/09/19 23:13 - Medical Decision Making Was hydrated with normal saline and given medication for symptomatic relief and her pain has subsided. Regarding the patient's cough lungs are clear to auscultation and she satting 95% on room air and likely has acute bronchitis and be given medication for symptomatic relief. Critical care attestation.: If time is entered above; I have spent that time in minutes in the direct care of this critically ill patient, excluding procedure time. ED Disposition Clinical Impression: Sickle cell pain crisis, Acute bronchitis Disposition: -01 TO HOME OR SELFCARE Is pt being admited?: No Does the pt Need Aspirin: No Condition: Stable Instructions: Acute Bronchitis (ED), Sickle Cell Crisis (ED) Additional Instructions: Please contact her primary care physician today for further pain management Time of Disposition: 02:24
[2019-09-10 02:46] LABS: Band Neutrophils # (Manual) 0.2 K/mm3; Basophils % (Manual) 0 % (0.0-1.8); Eosinophils % (Manual) 0 % (0.0-4.3); Total Cells Counted 100
[2019-09-10 02:47] LABS: Stomatocytes 1+; Target Cells 1+
[2019-09-10 02:48] LABS: Anisocytosis 3+; Poikilocytosis 3+; Sickle Cells 2+
[2019-09-10 02:49] LABS: Platelet Estimate Consistent w Auto
--- NOTE | 2019-09-10 09:39 | XRay Report ---
CHEST 2 VIEWS INDICATION / CLINICAL INFORMATION: Shortness of breath. COMPARISON: 08/22/2019. FINDINGS: SUPPORT DEVICES: The position of the left jugular CVL has not changed with the tip overlying the mid right atrium medially. HEART / MEDIASTINUM: Cardiomegaly is stable. There is mild prominence of the central pulmonary vessel s compared to the prior study. LUNGS / PLEURA: Interstitial lung markings in both perihilar regions have increased. There is slight blunting of the left lateral costophrenic angle. No pneumothorax. ADDITIONAL FINDINGS: No significant additional findings. IMPRESSION: 1. Interval development of mild congestive heart failure. 2. Left jugular CVL tip overlies the right mid atrium medially, unchanged. Signer Name: Keith Schulz MD Signed: 09/10/2019 9:35 AM Workstation Name: [id number]
== END 2019-09-10 03:00 | disposition home or self-care (01) ==
LOC: ED 22:12
DX: D57.00 Hb-SS disease with crisis, unspecified (principal); J20.9 Acute bronchitis, unspecified; I10 Essential (primary) hypertension; J45.909 Unspecified asthma, uncomplicated; Z86.2 Personal history of diseases of the blood and blood-forming organs and certain disorders involving the immune mechanism; Z88.5 Allergy status to narcotic agent; Z79.899 Other long term (current) drug therapy; Z90.49 Acquired absence of other specified parts of digestive tract
CPT/HCPCS: 36415; 71046; 80053; 84703; 85007; 85025; 85045; 93005; 93010; 96374; 96375; 96376; 99284; J1170; J1200; J1642; J1885; J2405; J7030

== ENCOUNTER 2019-09-25 12:18 | Emergency (ER) | payer MEDICAID ==
--- NOTE | 2019-09-25 13:10 | Event Note ---
ED Screening Note Date of service: 09/25/19 Time: 13:08 ED Screening Note: 34 yo female presents with acute pain from sickle cell x yesterday cc of generalized and joint aching causing 10/10 pain This initial assessment/diagnostic orders/clinical plan/treatment(s) is/are subject to change based on patients health status, clinical progression and re- assessment by fellow clinical providers in the ED. Further treatment and workup at subsequent clinical providers discretion. Patient/guardian urged not to elope from the ED as their condition may be serious if not clinically assessed and managed. Initial orders include: labs. main ed eval
[2019-09-25] MEDS ORDERED: HYDROmorphone 2 MG/1 ML INJ IV ONE ×2 (15:30→16:47)
[2019-09-25] MEDS ORDERED: diphenhydrAMINE 50 MG/ML VIAL IV ONE ×2 (15:30→17:50)
--- NOTE | 2019-09-25 15:30 | Emergency Department Report ---
HPI - General Chief Complaint: Sickle Cell Crisis Time Seen by Provider: 09/25/19 15:05 - HPI HPI: 34-year-old -[place] female, who is well-known to both myself and this department, presents to the emergency department with complaint of some back p ain and leg pain that she feels is a sickle cell pain crisis. She has been taking her home medications which include hydroxyurea, folate acid and Percocet without much improvement. The symptoms started yesterday afternoon. She denies any chest pain, fever, vomiting, edema. She also has a past medical history of arthritis, asthma, hypertension, and she has a chest port in place. 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 Keane. ED Past Medical Hx - Past Medical History Previous Medical History?: Yes Hx Hypertension: Yes Hx CVA: No Hx Heart Attack/AMI: No Hx Congestive Heart Failure: No Hx Diabetes: No Hx Sickle Cell Disease: Yes Hx Arthritis: Yes Hx Asthma: Yes Hx COPD: No Hx HIV: No Additional medical history: ANEMIA, multiple port infections - Surgical History Past Surgical History?: Yes Hx Cholecystectomy: Yes Additional Surgical History: , port removed June 2014. PICC line left upper arm (11/19/2014). . - Social History Smoking Status: Never Smoker Substance Use Type: None - Medications Home Medications: Home Medications Medication Instructions Recorded Confirmed Last Taken Type Methadone [Dolophine] 20 mg PO BID 03/19/19 08/22/19 08/18/19 History Acetaminophen [Non-Aspirin Extra 500 mg PO Q6HR PRN #30 tablet 06/02/19 08/22/19 08/15/19 Rx Strength] Ondansetron [Zofran ODT TAB] 4 mg PO Q8HR PRN #20 tab.rapdis 06/02/19 08/22/19 08/15/19 Rx Folic Acid [Folvite] 1 mg PO DAILY #30 tablet 08/23/19 Unknown Rx Hydroxyurea 500 mg PO DAILY #30 cap 08/23/19 Unknown Rx Lisinopril [Zestril TAB] 40 mg PO QDAY #30 tablet 08/23/19 Unknown Rx Oxycodone HCl/Acetaminophen 1 each PO Q12H PRN #6 tablet 08/23/19 Unknown Rx [Percocet 10/325 mg] amLODIPine 10 mg PO QDAY #30 tablet 08/23/19 Unknown Rx cloNIDine [Catapres] 0.2 mg PO BID #60 08/23/19 Unknown Rx ALBUTEROL Inhaler (OR & NICU) 2 puff IH QID PRN #1 inhalation 09/10/19 Unknown Rx [ProAir HFA Inhaler] predniSONE [Deltasone] 20 mg PO QDAY #5 tab 09/10/19 Unknown Rx ED Review of Systems ROS: Stated complaint: SICKLE CELL Other details as noted in HPI Comment: All other systems reviewed and negative Constitutional: denies: chills, fever Eyes: denies: eye pain, vision change ENT: denies: ear pain, throat pain Respiratory: denies: cough, shortness of breath Cardiovascular: denies: chest pain, palpitations Gastrointestinal: denies: abdominal pain, vomiting Genitourinary: denies: dysuria, discharge Musculoskeletal: back pain, myalgia. denies: joint swelling Skin: denies: rash, lesions Neurological: denies: headache, weakness Physical Exam - Physical Exam Vital Signs: Vital Signs 09/25/19 13:04 Temperature 98.8 F Pulse Rate 98 H Respiratory 16 Rate Blood Pressure 151/73 O2 Sat by Pulse 98 Oximetry Physical Exam: GENERAL: The patient is well-developed well-nourished. HENT: Normocephalic. Atraumatic. Patient has moist mucous membranes. EYES: Extraocular motions are intact. NECK: Supple. Trachea is midline. CHEST/LUNGS: Clear to auscultation. There is no respiratory distress noted. There is a chest port in place. HEART/CARDIOVASCULAR: Regular. There is no tachycardia. There is no murmur. ABDOMEN: Abdomen is soft, nontender. Patient has normal bowel sounds. Obese habitus. SKIN: Skin is warm and dry. NEURO: The patient is awake, alert, and oriented. The patient is cooperative. The patient has no focal neurologic deficits. Normal speech. MUSCULOSKELETAL: There is some reproducible tenderness to palpation over the bilateral thighs but there is no obvious deformity. There is no evidence of acute injury. BACK: No midline thoracic or lumbar tenderness to palpation, step-off or deformity. There is some reproducible bilateral paraspinal tenderness to palpation. ED Course Vital Signs 09/25/19 13:04 Temperature 98.8 F Pulse Rate 98 H Respiratory 16 Rate Blood Pressure 151/73 O2 Sat by Pulse 98 Oximetry ED Medical Decision Making - Lab Data Result diagrams: 09/25/19 15:49 09/25/19 15:49 - Medical Decision Making This patient presents with what appears to be a sickle cell pain crisis that is consistent with previous visits. Her labs are mostly unremarkable except for she has a significant thrombocytosis. This is most likely reactive due to her sickle cell disease. She has a mild psychosis but this is greatly decreased compared to previous visits. Her hemoglobin of 8.7 is consistent with previous visits. Her reticulocyte count is less than 2 and is also much less than usual. She was given a few doses of pain medication, anti-inflammatories, IV fluid resuscitation and upon reevaluation she is feeling greatly improved and asking for discharge home. She has good follow-up with Dr. Keane, hematology, and we discussed her thrombocytosis and the need to follow-up with Dr. Keane regarding her sickle cell disease. She will return to the emergency Department with any worsening of her symptoms or any acute distress. - Differential Diagnosis sickle cell anemia, fibromyalgia, rhabdomyolysis Critical Care Time: No Critical care attestation.: If time is entered above; I have spent that time in minutes in the direct care of this critically ill patient, excluding procedure time. ED Disposition Clinical Impression: Sickle cell pain crisis, Thrombocytosis Disposition: DC-01 TO HOME OR SELFCARE Is pt being admited?: No Condition: Stable Instructions: Sickle Cell Crisis (ED) Additional Instructions: Please follow-up with your drying room operator in the next few days regarding your sickle cell anemia and your elevated platelet counts. Return to the emergency Department with any worsening of your symptoms or any acute distress. Referrals: PATTIE KEANE MD [Referring] - 2-3 Days
[2019-09-25 16:10] LABS: Hematocrit 27.1 % (30.3-42.9); Hemoglobin 8.7 gm/dl (10.1-14.3); Mean Corpuscular HGB Conc 32 % (30-34); Mean Corpuscular Volume 91 fl (79-97); Red Blood Count 2.99 M/mm3 (3.65-5.03)
[2019-09-25 16:14] LABS: Platelet Count 1057 K/mm3 (140-440)
[2019-09-25 16:16] LABS: BUN/Creatinine Ratio 8; Blood Urea Nitrogen 7 mg/dL (7-17); Calcium 9.1 mg/dL (8.4-10.2); Hemolysis Index 8
[2019-09-25] MEDS ORDERED: SODIUM CHLORIDE 0.9% 1000 ML 1,000 ML IV ONE (16:42)
[2019-09-25 16:43] LABS: Basophils % (Manual) 0 % (0.0-1.8); Total Cells Counted 100
[2019-09-25 16:45] LABS: Platelet Estimate Appears Increased
[2019-09-25 16:46] LABS: Anisocytosis 1+
[2019-09-25 16:47] LABS: Ovalocytes Few; Sickle Cells Few; Target Cells 2+
[2019-09-25] MEDS ORDERED: HYDROmorphone 1 MG/1 ML INJ IV ONE (17:47)
[2019-09-25] MEDS ORDERED: KETOROLAC 30 MG/1 ML INJ IV ONE (17:47)
[2019-09-25 19:29] VITALS: BP 172/93
== END 2019-09-25 19:30 | disposition home or self-care (01) ==
LOC: ED 12:18
DX: D57.00 Hb-SS disease with crisis, unspecified (principal); D47.3 Essential (hemorrhagic) thrombocythemia; I10 Essential (primary) hypertension; M19.90 Unspecified osteoarthritis, unspecified site; J45.909 Unspecified asthma, uncomplicated; D64.9 Anemia, unspecified; Z90.49 Acquired absence of other specified parts of digestive tract; Z79.899 Other long term (current) drug therapy; Z88.5 Allergy status to narcotic agent
CPT/HCPCS: 36415; 80048; 85007; 85025; 85045; 96374; 96375; 96376; 99283; J1170; J1200; J1642; J1885; J7030

== ENCOUNTER 2019-10-04 08:20 | Emergency (ER) | payer MEDICAID ==
[2019-10-04] MEDS ORDERED: ONDANSETRON 4 MG/2 ML INJ IV ONE (08:38)
[2019-10-04] MEDS ORDERED: HYDROmorphone 1 MG/1 ML INJ IV ONE ×4 (08:38→12:43)
[2019-10-04] MEDS ORDERED: SODIUM CHLORIDE 0.9% 1000 ML 1,000 ML IV ONE (08:38)
--- NOTE | 2019-10-04 08:41 | Emergency Department Report ---
ED General Adult HPI - General Chief complaint: Sickle Cell Crisis Stated complaint: sickle cell crisis Time Seen by Provider: 10/04/19 08:36 Source: patient, old records reviewed Mode of arrival: Ambulatory Limitations: No Limitations - History of Present Illness Initial comments: 34 y/o female Known sickle cell patient presents to sickle cell crisis pain in her lower legs and back. Patient states that the Percocet that she gave is not helping. Patient states that this started one day ago. Patient does report she has an appointment on Sunday with her handbag frames inspector. Patient does admit to nausea but no vomiting. Patient denies any fever chills no chest pain no shortness of breath. Onset/Timin -: days(s) Location: back, lower extremity Severity scale (0 -10): 8 Quality: aching Consistency: constant Improves with: none Worsens with: none Associated Symptoms: denies other symptoms. denies: chest pain, cough, fev er/chills, nausea/vomiting, shortness of breath, weakness Treatments Prior to Arrival: none - Related Data Home Medications Medication Instructions Recorded Confirmed Last Taken Methadone [Dolophine] 20 mg PO BID 03/19/19 08/22/19 08/18/19 Previous Rx's Medication Instructions Recorded Last Taken Type Acetaminophen [Non-Aspirin Extra 500 mg PO Q6HR PRN #30 tablet 06/02/19 08/15/19 Rx Strength] Ondansetron [Zofran ODT TAB] 4 mg PO Q8HR PRN #20 tab.rapdis 06/02/19 08/15/19 Rx Folic Acid [Folvite] 1 mg PO DAILY #30 tablet 08/23/19 Unknown Rx Hydroxyurea 500 mg PO DAILY #30 cap 08/23/19 Unknown Rx Lisinopril [Zestril TAB] 40 mg PO QDAY #30 tablet 08/23/19 Unknown Rx Oxycodone HCl/Acetaminophen 1 each PO Q12H PRN #6 tablet 08/23/19 Unknown Rx [Percocet 10/325 mg] amLODIPine 10 mg PO QDAY #30 tablet 08/23/19 Unknown Rx cloNIDine [Catapres] 0.2 mg PO BID #60 08/23/19 Unknown Rx ALBUTEROL Inhaler (OR & NICU) 2 puff IH QID PRN #1 inhalation 09/10/19 Unknown Rx [ProAir HFA Inhaler] predniSONE [Deltasone] 20 mg PO QDAY #5 tab 09/10/19 Unknown Rx Allergies Allergy/AdvReac Type Severity Reaction Status Date / Time morphine Allergy Shortness Verified 06/25/19 08:38 of Breath ED Review of Systems ROS: Stated complaint: sickle cell crisis Other details as noted in HPI Comment: All other systems reviewed and negative ED Past Medical Hx - Past Medical History Previous Medical History?: Yes Hx Hypertension: Yes Hx CVA: No Hx Heart Attack/AMI: No Hx Congestive Heart Failure: No Hx Diabetes: No Hx Sickle Cell Disease: Yes Hx Arthritis: Yes Hx Asthma: Yes Hx COPD: No Hx HIV: No Additional medical history: ANEMIA, multiple port infections - Surgical History Past Surgical History?: Yes Hx Cholecystectomy: Yes Additional Surgical History: , port removed June 2014. PICC line left upper arm (11/19/2014). . - Social History Smoking Status: Never Smoker Substance Use Type: None - Medications Home Medications: Home Medications Medication Instructions Recorded Confirmed Last Taken Type Methadone [Dolophine] 20 mg PO BID 03/19/19 08/22/19 08/18/19 History Acetaminophen [Non-Aspirin Extra 500 mg PO Q6HR PRN #30 tablet 06/02/19 08/22/19 08/15/19 Rx Strength] Ondansetron [Zofran ODT TAB] 4 mg PO Q8HR PRN #20 tab.rapdis 06/02/19 08/22/19 08/15/19 Rx Folic Acid [Folvite] 1 mg PO DAILY #30 tablet 08/23/19 Unknown Rx Hydroxyurea 500 mg PO DAILY #30 cap 08/23/19 Unknown Rx Lisinopril [Zestril TAB] 40 mg PO QDAY #30 tablet 08/23/19 Unknown Rx Oxycodone HCl/Acetaminophen 1 each PO Q12H PRN #6 tablet 08/23/19 Unknown Rx [Percocet 10/325 mg] amLODIPine 10 mg PO QDAY #30 tablet 08/23/19 Unknown Rx cloNIDine [Catapres] 0.2 mg PO BID #60 08/23/19 Unknown Rx ALBUTEROL Inhaler (OR & NICU) 2 puff IH QID PRN #1 inhalation 09/10/19 Unknown Rx [ProAir HFA Inhaler] predniSONE [Deltasone] 20 mg PO QDAY #5 tab 09/10/19 Unknown Rx ED Physical Exam - General Limitations: No Limitations General appearance: alert - Head Head exam: Present: atraumatic, normocephalic - Eye Eye exam: Present: normal appearance - ENT ENT exam: Present: mucous membranes moist - Neck Neck exam: Present: normal inspection - Respiratory Respiratory exam: Present: normal lung sounds bilaterally. Absent: respiratory distress - Cardiovascular Cardiovascular Exam: Present: tachycardia - GI/Abdominal GI/Abdominal exam: Present: soft, normal bowel sounds. Absent: distended, tenderness - Expanded Lower Extremity Exam Left Hip exam: Present: full ROM, tenderness Knee exam: Present: full ROM, tenderness Lower Leg exam: Present: full ROM, tenderness Foot/Toe exam: Present: full ROM, tenderness Right Hip exam: Present: full ROM, tenderness Upper Leg exam: Present: full ROM Knee exam: Present: full ROM, tenderness Lower Leg exam: Present: full ROM, tenderness Ankle exam: Present: full ROM, tenderness Foot/Toe exam: Present: full ROM, tenderness Neuro vascular tendon exam: Present: no vascular compromise - Back Exam Back exam: Present: full ROM, tenderness - Neurological Exam Neurological exam: Present: alert, oriented X3 - Psychiatric Psychiatric exam: Present: normal affect, normal mood - Skin Skin exam: Present: warm, dry, intact, normal color. Absent: rash ED Course Vital Signs 10/04/19 10/04/19 10/04/19 08:22 08:40 08:48 Temperature 99.0 F 98.8 F Pulse Rate 102 H 101 H 103 H Respiratory 18 16 13 Rate Blood Pressure 151/98 191/121 Blood Pressure 191/121 [Left] O2 Sat by Pulse 97 97 97 Oximetry 10/04/19 10/04/19 10/04/19 09:00 09:16 09:30 Temperature Pulse Rate 101 H 102 H 95 H Respiratory 33 H 21 15 Rate Blood Pressure 191/121 184/96 190/103 Blood Pressure [Left] O2 Sat by Pulse 95 96 96 Oximetry 10/04/19 10/04/19 10/04/19 09:46 10:00 10:15 Temperature Pulse Rate 95 H 98 H 93 H Respiratory 18 34 H 33 H Rate Blood Pressure 194/116 179/91 191/86 Blood Pressure [Left] O2 Sat by Pulse 96 97 95 Oximetry 10/04/19 10/04/1910/04/19 10:30 10:45 11:00 Temperature Pulse Rate 93 H 94 H 97 H Respiratory 20 27 H 21 Rate Blood Pressure 174/97 199/102 178/99 Blood Pressure [Left] O2 Sat by Pulse 93 97 98 Oximetry 10/04/19 10/04/19 11:16 11:30 Temperature Pulse Rate 94 H 95 H Respiratory 22 17 Rate Blood Pressure 182/95 158/94 Blood Pressure [Left] O2 Sat by Pulse 97 97 Oximetry ED Medical Decision Making - Lab Data Result diagrams: 10/04/19 09:20 10/04/19 09:20 - Medical Decision Making 34 y/o female Known sickle cell patient presents to sickle cell crisis pain in her lower legs and back. Patient states that the Percocet that she gave is not helping. Patient states that this started one day ago. Patient does report she has an appointment on Sunday with her handbag frames inspector. Patient does admit to nausea but no vomiting. Patient denies any fever chills no chest pain no shortness of breath. Review of patient's chart showed that she had elevated platelet count of 1 million her last visit. We'll be started on normal saline 0.5 of Dilaudid and Zofran 4 mg. Labs drawn CBC, CMP, lactic acid, PT PTT, urinalysis Patient's had a total of 1.5 mg of Dilaudid and 50 mg of Benadryl. Patient reports that she is still in pain. Offered patient Tylenol she refused. Discussed admission for patient for pain management patient refused. Critical care attestation.: If time is entered above; I have spent that time in minutes in the direct care of this critically ill patient, excluding procedure time. ED Disposition Clinical Impression: Anemia, sickle cell with crisis Disposition: DC-01 TO HOME OR SELFCARE Is pt being admited?: No Does the pt Need Aspirin: No Condition: Stable Instructions: Sickle Cell Crisis (ED) Referrals: SEMAJ FLYNN DO [Staff Physician] - 3-5 Days
[2019-10-04] MEDS ORDERED: diphenhydrAMINE 50 MG/ML VIAL IV ONE (09:33)
[2019-10-04 09:41] LABS: Hematocrit 26.9 % (30.3-42.9); Hemoglobin 8.9 gm/dl (10.1-14.3); Lymphocytes % (Auto) 14.6 % (13.4-35.0); Mean Corpuscular HGB Conc 33 % (30-34); Mean Corpuscular Volume 91 fl (79-97); Monocytes % (Auto) 7.1 % (0.0-7.3); Platelet Count 552 K/mm3 (140-440); Red Blood Count 2.95 M/mm3 (3.65-5.03)
[2019-10-04 09:42] LABS: Basophils # (Auto) 0.1 K/mm3 (0.0-0.1); Basophils % (Auto) 0.8 % (0.0-1.8); Eosinophils # (Auto) 0.4 K/mm3 (0.0-0.4); Eosinophils % (Auto) 2.6 % (0.0-4.3); Lymphocytes # (Auto) 2.1 K/mm3 (1.2-5.4)
[2019-10-04 09:53] LABS: Alanine Aminotransferase 47 units/L (7-56); Albumin 3.7 g/dL (3.9-5); BUN/Creatinine Ratio 14; Blood Urea Nitrogen 11 mg/dL (7-17); Calcium 9.1 mg/dL (8.4-10.2); Hemolysis Index 50
[2019-10-04 10:09] LABS: Red Cell Distribution Width 20.1 % (13.2-15.2)
[2019-10-04 10:17] LABS: INR 0.99 (0.87-1.13)
[2019-10-04 13:19] VITALS: BP 174/98
[2019-10-04 13:23] LABS: Bilirubin,Urine NEG (Negative); Blood,Urine NEG (Negative); Color,Urine Yellow (Yellow); Urobilinogen,Urine < 2.0 mg/dL (<2.0)
[2019-10-04 13:28] LABS: Protein,Urine >500 mg/dL (Negative)
== END 2019-10-04 13:15 | disposition home or self-care (01) ==
LOC: ED 08:20
DX: D57.00 Hb-SS disease with crisis, unspecified (principal); I10 Essential (primary) hypertension; M19.90 Unspecified osteoarthritis, unspecified site; J45.909 Unspecified asthma, uncomplicated; Z90.49 Acquired absence of other specified parts of digestive tract; Z98.890 Other specified postprocedural states; Z79.899 Other long term (current) drug therapy; Z88.6 Allergy status to analgesic agent
CPT/HCPCS: 36415; 80053; 81001; 82140; 85025; 85045; 85610; 85730; 96374; 96375; 96376; 99283; J1170; J1200; J1642; J2405; J7030

== ENCOUNTER 2019-10-05 17:37 | Emergency (ER) | payer MEDICAID ==
--- NOTE | 2019-10-05 18:41 | Event Note ---
ED Screening Note Date of service: 10/05/19 Time: 18:36 ED Screening Note: This initial assessment/diagnostic orders/clinical plan/treatment(s) is/are subject to change based on patients health status, clinical progression and re- assessment by fellow clinical providers in the ED. Further treatment and workup at subsequent clinical providers discretion. Patient/guardian urged not to elope from the ED as their condition may be serious if not clinically assessed and managed. 34 yo female with hx of Sickle Cell. C/o of generalized body pain started this morning. She denies cough, fever, chest pain and SOB. She takes percocet for pain states her pain is not relived. Initial orders include: CBC CMP RETIC COUNT UA
--- NOTE | 2019-10-05 21:26 | Emergency Department Report ---
ED General Adult HPI - General Chief complaint: Sickle Cell Crisis Stated complaint: SSC Time Seen by Provider: 10/05/19 18:34 Source: patient Mode of arrival: Ambulatory Limitations: No Limitations - History of Present Illness Initial comments: 34-year-old Afro-[place] female with a very well known past medical history of sickle cell, asthma, eczema and hypertension presents emergency department complaining of another sickle cell pain exacerbation involving her lower back and legs. She has been having several reported sickle cell episodes these past few months resulting in emergency room visits. She reports no Swelling or any claudication below no palliative or provocative factors noted. She reports no hemoptysis, hematemesis, vomiting, diarrhea, abdominal pain, dyspnea, dizziness, headache, neck pain fever, chills, sweats no chest pain or palpitations. The medications as prescribed and follow up with her hygiene coordinator Dr. Keane on is Sunday for medication adjustments as she reports having frequent recurrent sickle cell episode so far this year for reasons that are unknown. -: Gradual Improves with: none Worsens with: none Associated Symptoms: denies: chest pain, diaphoresis, shortness of breath, syncope Treatments Prior to Arrival: none - Related Data Home Medications Medication Instructions Recorded Confirmed Last Taken Methadone [Dolophine] 20 mg PO BID 03/19/19 08/22/19 08/18/19 Previous Rx's Medication Instructions Recorded Last Taken Type Acetaminophen [Non-Aspirin Extra 500 mg PO Q6HR PRN #30 tablet 06/02/19 08/15/19 Rx Strength] Ondansetron [Zofran ODT TAB] 4 mg PO Q8HR PRN #20 tab.rapdis 06/02/19 08/15/19 Rx Folic Acid [Folvite] 1 mg PO DAILY #30 tablet 08/23/19 Unknown Rx Hydroxyurea 500 mg PO DAILY #30 cap 08/23/19 Unknown Rx Lisinopril [Zestril TAB] 40 mg PO QDAY #30 tablet 08/23/19 Unknown Rx Oxycodone HCl/Acetaminophen 1 each PO Q12H PRN #6 tablet 08/23/19 Unknown Rx [Percocet 10/325 mg] amLODIPine 10 mg PO QDAY #30 tablet 08/23/19 Unknown Rx cloNIDine [Catapres] 0.2 mg PO BID #60 08/23/19 Unknown Rx ALBUTEROL Inhaler (OR & NICU) 2 puff IH QID PRN #1 inhalation 09/10/19 Unknown Rx [ProAir HFA Inhaler] predniSONE [Deltasone] 20 mg PO QDAY #5 tab 09/10/19 Unknown Rx Allergies Allergy/AdvReac Type Severity Reaction Status Date / Time morphine Allergy Shortness Verified 06/25/19 08:38 of Breath ED Review of Systems ROS: Stated complaint: SSC Other details as noted in HPI Comment: All other systems reviewed and negative ED Past Medical Hx - Past Medical History Previous Medical History?: Yes Hx Hypertension: Yes Hx CVA: No Hx Heart Attack/AMI: No Hx Congestive Heart Failure: No Hx Diabetes: No Hx Sickle Cell Disease: Yes Hx Arthritis: Yes Hx Asthma: Yes Hx COPD: No Hx HIV: No Additional medical history: ANEMIA, multiple port infections - Surgical History Past Surgical History?: Yes Hx Cholecystectomy: Yes Additional Surgical History: , port removed June 2014. PICC line left upper arm (11/19/2014). . - Social History Smoking Status: Never Smoker Substance Use Type: None - Medications Home Medications: Home Medications Medication Instructions Recorded Confirmed Last Taken Type Methadone [Dolophine] 20 mg PO BID 03/19/19 08/22/19 08/18/19 History Acetaminophen [Non-Aspirin Extra 500 mg PO Q6HR PRN #30 tablet 06/02/19 08/22/19 08/15/19 Rx Strength] Ondansetron [Zofran ODT TAB] 4 mg PO Q8HR PRN #20 tab.rapdis 06/02/19 08/22/19 08/15/19 Rx Folic Acid [Folvite] 1 mg PO DAILY #30 tablet 08/23/19 Unknown Rx Hydroxyurea 500 mg PO DAILY #30 cap 08/23/19 Unknown Rx Lisinopril [Zestril TAB] 40 mg PO QDAY #30 tablet 08/23/19 Unknown Rx Oxycodone HCl/Acetaminophen 1 each PO Q12H PRN #6 tablet 08/23/19 Unknown Rx [Percocet 10/325 mg] amLODIPine 10 mg PO QDAY #30 tablet 08/23/19 Unknown Rx cloNIDine [Catapres] 0.2 mg PO BID #60 08/23/19 Unknown Rx ALBUTEROL Inhaler (OR & NICU) 2 puff IH QID PRN #1 inhalation 09/10/19 Unknown Rx [ProAir HFA Inhaler] predniSONE [Deltasone] 20 mg PO QDAY #5 tab 09/10/19 Unknown Rx ED Physical Exam - General Limitations: No Limitations General appearance: alert, in no apparent distress - Head Head exam: Present: atraumatic, normocephalic - Eye Eye exam: Present: normal appearance, PERRL, EOMI Pupils: Present: normal accommodation - ENT ENT exam: Present: mucous membranes moist - Neck Neck exam: Present: normal inspection, full ROM. Absent: tenderness, meningismus, lymphadenopathy, thyromegaly - Respiratory Respiratory exam: Present: normal lung sounds bilaterally. Absent: respiratory distress, wheezes, rales, chest wall tenderness, accessory muscle use - Cardiovascular Cardiovascular Exam: Present: regular rate, normal rhythm. Absent: systolic murmur, diastolic murmur, rubs, gallop - GI/Abdominal GI/Abdominal exam: Present: soft, normal bowel sounds. Absent: distended, tenderness, guarding - Extremities Exam Extremities exam: Present: normal inspection - Back Exam Back exam: Present: normal inspection - Neurological Exam Neurological exam: Present: alert, oriented X3 - Psychiatric Psychiatric exam: Present: normal affect, normal mood - Skin Skin exam: Present: warm, dry, intact, normal color. Absent: rash ED Course Vital Signs 10/05/19 10/05/19 10/05/19 18:35 21:25 23:00 Temperature 98.8 F Pulse Rate 103 H 101 H 94 H Respiratory 18 18 18 Rate Blood Pressure 179/104 Blood Pressure 171/90 174/87 [Left] O2 Sat by Pulse 95 97 99 Oximetry ED Medical Decision Making - Lab Data Result diagrams: 10/05/19 21:20 10/05/19 Unknown - Radiology Data Radiology results: report reviewed [facility] [address] [place] [address] XRay Report Signed Patient: HETAL MENDOZA MR#: [id number] : 1985 Acct:[id number] Age/Sex: 34 / F ADM Date: 10/05/19 Loc: ED Attending Dr: Ordering Physician: THOMAS ACOSTA Date of Service: 10/05/19 Procedure(s): XR chest routine 2V Accession Number(s): [id number] cc: THOMAS ACOSTA Fluoro Time In Minutes: CHEST 2 VIEWS INDICATION / CLINICAL INFORMATION: pain to upper back and chest. COMPARISON: None available. FINDINGS: SUPPORT DEVICES: Port terminates in the right atrium.. HEART / MEDIASTINUM: No significant abnormality. LUNGS / PLEURA: No significant pulmonary or pleural abnormality. No pneumothorax. ADDITIONAL FINDINGS: No significant additional findings. IMPRESSION: 1. No acute findings. Signer Name: Santy Santizo MD Signed: 10/06/2019 1:51 AM Workstation Name: [id number] Transcribed By: Dictated By: Santy Santizo MD Electronically Authenticated By: Santy Santizo MD Signed Date/Time: 10/06/19150 DD/ 9 TD/TT: - Medical Decision Making Ms. Mendoza is a 34-year-old -[place] female with a very well known history of sickle cell anemia resulting in several emergency room visits over the past few months. Her hemoglobin has been remaining relatively stable at 8 and her reticulocyte count in the range of 10 with no infectious process is found or any current organic instability. Given History and Exam at this time, I have low suspicion for Acute Chest Syndrome, Bacteremia, Pneumonia, CVA, Aplastic Crisis, Osteomyelitis, Renal Papillary Necrosis. HPI presenting with pain to their back and legs for 12 hours. The patient describes the pain as severe in nature. The character of the pain has not changed from the patients typical sickle cell crises. Denies fever/chills. Denies shortness of breath. Denies pleuritic chest pain. Denies hematuria. Denies unilateral weakness, dysarthria, confusion Patients pain has been controlled. Fentanyl, Toradol, fluids, Zofran. She repeatedly requests Dilaudid throughout her emergency room visit. She remained relatively comfortable and stable throughout her visit speaking calmly unlabored and in complete sentences. Laboratory data did not reveal any significant declining factors Disposition: Patient will be discharged with strict return precautions and follow up with primary MD within 48 hours for further evaluation. . Critical care attestation.: If time is entered above; I have spent that time in minutes in the direct care of this critically ill patient, excluding procedure time. ED Disposition Clinical Impression: Sickle cell disease, Sickle cell pain crisis Disposition: TO HOME OR SELFCARE Is pt being admited?: No Does the pt Need Aspirin: No Condition: Stable Instructions: Sickle Cell Crisis (ED) Referrals: PATTIE KEANE MD [Primary Care Provider] - 2-3 Days (Please keep your appointment with your hygiene coordinator on October 07 as discussed)
[2019-10-05] MEDS ORDERED: KETOROLAC 30 MG/1 ML INJ IV STA (21:27)
[2019-10-05] MEDS ORDERED: SODIUM CHLORIDE 0.9% 1000 ML 1,000 ML IV ONE (21:27)
[2019-10-05] MEDS ORDERED: fentaNYL 100 MCG/2 ML INJ IV STA ×2 (21:27→23:14)
[2019-10-05] MEDS ORDERED: ONDANSETRON 4 MG/2 ML INJ IV STA (21:27)
[2019-10-05 21:29] LABS: Hematocrit 24.5 % (30.3-42.9); Hemoglobin 8.1 gm/dl (10.1-14.3); Mean Corpuscular HGB Conc 33 % (30-34); Mean Corpuscular Volume 91 fl (79-97); Platelet Count 606 K/mm3 (140-440); Red Blood Count 2.71 M/mm3 (3.65-5.03); Red Cell Distribution Width 19.5 % (13.2-15.2)
[2019-10-05 21:39] LABS: BUN/Creatinine Ratio 11; Blood Urea Nitrogen 11 mg/dL (7-17); Calcium 8.7 mg/dL (8.4-10.2)
[2019-10-05 21:40] LABS: Alanine Aminotransferase 53 units/L (7-56); Albumin 3.8 g/dL (3.9-5); Hemolysis Index 6
[2019-10-06 00:39] VITALS: BP 174/87
[2019-10-06 00:48] LABS: HCG Qualitative,Urine Negative (Negative)
[2019-10-06 00:57] LABS: Bilirubin,Urine NEG (Negative); Blood,Urine SM (Negative); Color,Urine Yellow (Yellow); Mucus,Urine FEW /HPF; Urobilinogen,Urine < 2.0 mg/dL (<2.0)
--- NOTE | 2019-10-06 01:55 | XRay Report ---
CHEST 2 VIEWS INDICATION / CLINICAL INFORMATION: pain to upper back and chest. COMPARISON: None available. FINDINGS: SUPPORT DEVICES: Port terminates in the right atrium.. HEART / MEDIASTINUM: No significant abnormality. LUNGS / PLEURA: No significant pulmonary or pleural abnormality. No pneumothorax. ADDITIONAL FINDINGS: No significant additional findings. IMPRESSION: 1. No acute findings. Signer Name: Santy Santizo MD Signed: 10/06/2019 1:51 AM Workstation Name: [id number]
[2019-10-06] MEDS ORDERED: HYDROmorphone 1 MG/1 ML INJ IV STA (02:45)
== END 2019-10-06 04:30 | disposition home or self-care (01) ==
LOC: ED 17:37
DX: D57.00 Hb-SS disease with crisis, unspecified (principal); I10 Essential (primary) hypertension; M19.90 Unspecified osteoarthritis, unspecified site; J45.909 Unspecified asthma, uncomplicated; Z90.49 Acquired absence of other specified parts of digestive tract; Z79.899 Other long term (current) drug therapy; Z88.5 Allergy status to narcotic agent
CPT/HCPCS: 36415; 71046; 80053; 81001; 81025; 85027; 85045; 96374; 96375; 96376; 99284; J1170; J1642; J1885; J2405; J3010; J7030

== ENCOUNTER 2019-10-15 08:30 | Emergency (ER) | payer MEDICAID ==
[2019-10-15] MEDS ORDERED: HYDROmorphone 2 MG/1 ML INJ IV ONE ×3 (09:07→11:16)
[2019-10-15] MEDS ORDERED: ONDANSETRON 4 MG/2 ML INJ IV ONE (09:07)
[2019-10-15] MEDS ORDERED: HYDROmorphone 1 MG/1 ML INJ ONE ×2 (09:17→10:47)
--- NOTE | 2019-10-15 09:18 | Emergency Department Report ---
ED General Adult HPI - General Chief complaint: Sickle Cell Crisis Stated complaint: SICKLE CELL CRISIS Time Seen by Provider: 10/15/19 08:41 Source: patient, RN notes reviewed, old records reviewed Mode of arrival: Ambulatory Limitations: No Limitations - History of Present Illness Initial comments: Hematology oncology: Dr. Keane Past medical history: Sickle cell disease, port, hypertension The patient is a 34-year-old female. I am familiar with this patient. She presents to the ER with her typical sickle cell crisis. Her symptoms include ba ck pain, thoracic pain, cramping, nausea, no dysuria. Triggers include cold weather, sick contacts, and current menstruation. The patient denies cough. The patient denies fever. She is nauseous but not vomiting. Hydromorphones typically improves her pain. -: Gradual Location: back, left, right, upper extremity, lower extremity Quality: aching Consistency: constant Improves with: medication Worsens with: movement - Related Data Home Medications Medication Instructions Recorded Confirmed Last Taken Methadone [Dolophine] 20 mg PO BID 03/19/19 08/22/19 08/18/19 Previous Rx's Medication Instructions Recorded Last Taken Type Acetaminophen [Non-Aspirin Extra 500 mg PO Q6HR PRN #30 tablet 06/02/19 08/15/19 Rx Strength] Ondansetron [Zofran ODT TAB] 4 mg PO Q8HR PRN #20 tab.rapdis 06/02/19 08/15/19 Rx Folic Acid [Folvite] 1 mg PO DAILY #30 tablet 08/23/19 Unknown Rx Hydroxyurea 500 mg PO DAILY #30 cap 08/23/19 Unknown Rx Lisinopril [Zestril TAB] 40 mg PO QDAY #30 tablet 08/23/19 Unknown Rx Oxycodone HCl/Acetaminophen 1 each PO Q12H PRN #6 tablet 08/23/19 Unknown Rx [Percocet 10/325 mg] amLODIPine 10 mg PO QDAY #30 tablet 08/23/19 Unknown Rx cloNIDine [Catapres] 0.2 mg PO BID #60 08/23/19 Unknown Rx ALBUTEROL Inhaler (OR & NICU) 2 puff IH QID PRN #1 inhalation 09/10/19 Unknown Rx [ProAir HFA Inhaler] predniSONE [Deltasone] 20 mg PO QDAY #5 tab 09/10/19 Unknown Rx Jazlyn Root [Jazlyn] 250 mg PO QID PRN #30 capsule 10/15/19 Unknown Rx Ondansetron [Zofran Odt] 4 mg PO Q8HR PRN #20 tab.rapdis 10/15/19 Unknown Rx Allergies Allergy/AdvReac Type Severity Reaction Status Date / Time morphine Allergy Shortness Verified 06/25/19 08:38 of Breath ED Review of Systems ROS: Stated complaint: SICKLE CELL CRISIS Other details as noted in HPI Constitutional: malaise. denies: fever Eyes: denies: eye discharge ENT: denies: congestion Respiratory: denies: wheezing Cardiovascular: denies: syncope Gastrointestinal: nausea Genitourinary: denies: dysuria Musculoskeletal: arthralgia, myalgia Skin: denies: lesions Neurological: weakness Hematological/Lymphatic: denies: easy bleeding ED Past Medical Hx - Past Medical History Previous Medical History?: Yes Hx Hypertension: Yes Hx CVA: No Hx Heart Attack/AMI: No Hx Congestive Heart Failure: No Hx Diabetes: No Hx Sickle Cell Disease: Yes Hx Arthritis: Yes Hx Asthma: Yes Hx COPD: No Hx HIV: No Additional medical history: ANEMIA, multiple port infections - Surgical History Past Surgical History?: Yes Hx Cholecystectomy: Yes Additional Surgical History: , port removed June 2014. PICC line left upper arm (11/19/2014). . - Social History Smoking Status: Never Smoker Substance Use Type: None - Medications Home Medications: Home Medications Medication Instructions Recorded Confirmed Last Taken Type Methadone [Dolophine] 20 mg PO BID 03/19/19 08/22/19 08/18/19 History Acetaminophen [Non-Aspirin Extra 500 mg PO Q6HR PRN #30 tablet 06/02/19 08/22/19 08/15/19 Rx Strength] Ondansetron [Zofran ODT TAB] 4 mg PO Q8HR PRN #20 tab.rapdis 06/02/19 08/22/19 08/15/19 Rx Folic Acid [Folvite] 1 mg PO DAILY #30 tablet 08/23/19 Unknown Rx Hydroxyurea 500 mg PO DAILY #30 cap 08/23/19 Unknown Rx Lisinopril [Zestril TAB] 40 mg PO QDAY #30 tablet 08/23/19 Unknown Rx Oxycodone HCl/Acetaminophen 1 each PO Q12H PRN #6 tablet 08/23/19 Unknown Rx [Percocet 10/325 mg] amLODIPine 10 mg PO QDAY #30 tablet 08/23/19 Unknown Rx cloNIDine [Catapres] 0.2 mg PO BID #60 08/23/19 Unknown Rx ALBUTEROL Inhaler (OR & NICU) 2 puff IH QID PRN #1 inhalation 09/10/19 Unknown Rx [ProAir HFA Inhaler] predniSONE [Deltasone] 20 mg PO QDAY #5 tab 09/10/19 Unknown Rx Jazlyn Root [Jazlyn] 250 mg PO QID PRN #30 capsule 10/15/19 Unknown Rx Ondansetron [Zofran Odt] 4 mg PO Q8HR PRN #20 tab.rapdis 10/15/19 Unknown Rx ED Physical Exam - General Limitations: No Limitations General appearance: alert, anxious, obese - Head Head exam: Present: atraumatic, normocephalic - Eye Eye exam: Present: normal appearance, EOMI. Absent: nystagmus - ENT ENT exam: Present: normal exam, normal orophraynx, mucous membranes moist, normal external ear exam - Neck Neck exam: Present: normal inspection, full ROM. Absent: tenderness, meningismus - Respiratory Respiratory exam: Present: normal lung sounds bilaterally, chest wall tenderness. Absent: respiratory distress - Cardiovascular Cardiovascular Exam: Present: regular rate, normal rhythm, normal heart sounds. Absent: bradycardia, tachycardia, irregular rhythm, systolic murmur, diastolic murmur, rubs, gallop - GI/Abdominal GI/Abdominal exam: Present: soft. Absent: distended, tenderness, guarding, rebound, rigid, pulsatile mass - Extremities Exam Extremities exam: Present: normal inspection, full ROM, tenderness, other (2+ pulses noted in the bilateral upper and lower extremities. There is mild diffuse long bony tenderness. There is no crepitus. There is no streaking. The muscular compartments are soft. There is no palpable cord.). Absent: calf tenderness - Back Exam Back exam: Present: normal inspection, full ROM, paraspinal tenderness, vertebral tenderness. Absent: tenderness, CVA tenderness (R), CVA tenderness (L) - Neurological Exam Neurological exam: Present: alert, other (there is no facial droop. The tongue is midline. Extraocular movements are intact bilaterally. There is 5 out of 5 strength in the bilateral upper and lower extremities.) - Psychiatric Psychiatric exam: Present: anxious - Skin Skin exam: Present: warm, dry, intact, normal color. Absent: rash ED Course Vital Signs 10/15/19 10/15/19 08:37 10:52 Temperature 99.1 F 98.6 F Pulse Rate 92 H 89 Respiratory 18 18 Rate Blood Pressure 195/111 Blood Pressure 186/91 [Left] O2 Sat by Pulse 98 95 Oximetry - Reevaluation(s) Reevaluation #1: 10/15/19 09:44 Differential diagnosis, including but not limited to: Menstruation, viral illness, sickle cell crisis Assessment and plan: 34-year-old female presenting with a complaint of sickle cell crisis, likely multifactorial in etiology, including child sick contact with what appears to be viral GI symptoms, underlying menstruation, and cold weather/change of seasons. She is afebrile with reassuring vital signs. Her presentation today appears to be similar to prior presentations. We will check basic laboratory studies, access port, provided fluids, Zofran, and hydromorpho ne. Patient counseled that she may have oral Benadryl if needed, for pruritus, however, we avoid IV/IM Benadryl as it may have euphoria inducing qualities. Reevaluation #2: 10/15/19 10:40 Last reviewed and appreciated. Reassess. Still having pain. Food at the bedside. Playing with her cellular phone. Appears uncomfortable. Additional pain medication ordered. Reevaluation #3: 10/15/19 13:00 Patient looking more comfortable. States readiness for discharge after third dose of hydromorphone. X-ray the chest my interpretation is unremarkable. Urinalysis unremarkable. Lactic acid unremarkable. Do not suspect bacteremia at this time. Suspect viral syndrome with probable sickle cell crisis. Patient requesting to be discharged at this time. ED Medical Decision Making - Lab Data Result diagrams: 10/15/19 Unknown 10/15/19 Unknown Vital Signs 10/15/19 08:37 Temperature 99.1 F Pulse Rate 92 H Respiratory 18 Rate Blood Pressure 195/111 O2 Sat by Pulse 98 Oximetry - Radiology Data Radiology results: image reviewed Critical care attestation.: If time is entered above; I have spent that time in minutes in the direct care of this critically ill patient, excluding procedure time. ED Disposition Clinical Impression: Sickle cell pain crisis, Menses painful, Viral syndrome Disposition: DC-01 TO HOME OR SELFCARE Is pt being admited?: No Does the pt Need Aspirin: No Condition: Stable Additional Instructions: Advance diet as tolerated. Continue outpatient pain medications that were prescribed to the patient. Patient may also take [id number] Motrin and Tylenol as needed for pain. Take nausea medications as needed and directed. Drink plenty of fluids. Continue current outpatient blood pressure medications. Follow up with the primary care doctor or brake lining driller within the next 7-10 days. Cultures were sent today, and results of be available in the next 3-5 days. Please have your primary care doctor or brake lining driller contact the medical records department to obtain culture results. X-ray the chest was interpreted by ER physician today's being negative for acute disease. Occasionally, final radiology interpretations will be different than the initial ER interpretation. Therefore, please have your primary care doctor or brake lining driller contact the medical records department to obtain final interpretation of x-ray the chest. Wash hands with soap and water after handling sick contacts, and after having vomiting or diarrhea. Return to the emergency room right away with new, worsening, different symptoms, or symptoms not present on the initial emergency room evaluation. Referrals: PATTIE KEANE MD [Primary Care Provider] - 3-5 Days
[2019-10-15] MEDS ORDERED: diphenhydrAMINE 25 MG CAP PO ONE ×2 (09:20→09:42)
[2019-10-15] MEDS ORDERED: D5W/0.45% NACL 1,000 ML IV SCH (10:00)
[2019-10-15 10:11] LABS: Hemoglobin 9.1 gm/dl (10.1-14.3); Mean Corpuscular HGB Conc 33 % (30-34); Mean Corpuscular Volume 98 fl (79-97); Red Blood Count 2.86 M/mm3 (3.65-5.03)
[2019-10-15 10:15] LABS: Red Cell Distribution Width 23.4 % (13.2-15.2)
[2019-10-15 10:31] LABS: BUN/Creatinine Ratio 13; Blood Urea Nitrogen 9 mg/dL (7-17); Calcium 8.6 mg/dL (8.4-10.2); Hemolysis Index 32
[2019-10-15] MEDS ORDERED: MAGNESIUM OXIDE 400 MG TAB PO STA (10:42)
[2019-10-15 10:48] LABS: Basophils % (Manual) 0 % (0.0-1.8); Total Cells Counted 100
[2019-10-15 10:56] LABS: Band Neutrophils # (Manual) 0.3 K/mm3; Sickle Cells 1+
[2019-10-15 10:57] LABS: Anisocytosis 2+; Hypochromasia 1+; Macrocytosis 1+; Target Cells 1+
[2019-10-15 10:58] LABS: Large Platelets Few; Platelet Estimate Cons
[2019-10-15 10:59] LABS: Platelet Count 282 K/mm3 (140-440)
[2019-10-15 11:48] LABS: Albumin 3.6 g/dL (3.9-5); Bilirubin,Direct 0.4 mg/dL (0-0.2)
[2019-10-15 12:45] LABS: Bilirubin,Urine NEG (Negative); Blood,Urine SM (Negative); Color,Urine Yellow (Yellow); Urobilinogen,Urine < 2.0 mg/dL (<2.0)
[2019-10-15 12:51] LABS: Protein,Urine >500 mg/dL (Negative)
--- NOTE | 2019-10-15 13:00 | XRay Report ---
CHEST 2 VIEWS INDICATION / CLINICAL INFORMATION: cough HBSS crisis. Sickle cell crisis. COMPARISON: 10/06/19 FINDINGS: SUPPORT DEVICES: Left Port-A-Cath is unchanged. HEART / MEDIASTINUM: Heart is enlarged but stable. LUNGS / PLEURA: No significant pulmonary or pleural abnormality. No pneumothorax. ADDITIONAL FINDINGS: Osseous findings of sickle cell disease are unchanged. IMPRESSION: 1. No acute findings. No significant change. Signer Name: Chris Garces MD Signed: 10/15/2019 12:56 PM Workstation Name: [id number]
[2019-10-15 13:42] VITALS: BP 191/92
== END 2019-10-15 13:42 | disposition home or self-care (01) ==
LOC: ED 08:30
DX: D57.00 Hb-SS disease with crisis, unspecified (principal); B34.9 Viral infection, unspecified; N94.6 Dysmenorrhea, unspecified; I10 Essential (primary) hypertension; J45.909 Unspecified asthma, uncomplicated; Z90.49 Acquired absence of other specified parts of digestive tract; Z79.899 Other long term (current) drug therapy; Z88.5 Allergy status to narcotic agent
CPT/HCPCS: 36415; 71046; 80048; 80076; 81001; 82140; 82550; 83735; 84702; 85007; 85025; 85045; 87040; 87086; 96374; 96375; 96376; 99284; J1170; J1642; J2405

== ENCOUNTER 2019-10-17 08:50 | Emergency (ER) | payer MEDICAID ==
[2019-10-17] MEDS ORDERED: cloNIDine 0.2 MG TAB PO ONE (09:04)
[2019-10-17] MEDS ORDERED: cloNIDine 0.2 MG TAB ONE (09:08)
[2019-10-17] MEDS ORDERED: KETOROLAC 30 MG/1 ML INJ IV ONE (14:25)
[2019-10-17] MEDS ORDERED: diphenhydrAMINE 50 MG/ML VIAL IV ONE ×2 (14:25→15:47)
[2019-10-17] MEDS ORDERED: HYDROmorphone 2 MG/1 ML INJ IV ONE ×3 (14:25→16:59)
[2019-10-17] MEDS ORDERED: ONDANSETRON 4 MG/2 ML INJ IV ONE (14:25)
--- NOTE | 2019-10-17 14:58 | Emergency Department Report ---
ED General Adult HPI - General Chief complaint: Sickle Cell Crisis Stated complaint: SICKLE CELL PAIN Time Seen by Provider: 10/17/19 14:21 Source: patient Mode of arrival: Ambulatory Limitations: No Limitations - History of Present Illness Initial comments: 34-year-old female with a past medical history of arthritis, asthma, hypertension, and sickle cell disease presents to the hospital complains of pain secondary to sickle cell crisis since yesterday. Patient complains of 10/10 pain to lower back and bilateral legs. She denies weakness, numbness, dysuria, or fever. She's taken her Percocet 10 mg and morphine 10 mg twice a day without relief. She denies chest pain or shortness of breath and states this pain is typical of her previous crisis. She had one episode of vomiting this morning and did not take her blood pressure medicines prior to arrival. Patient clonidine 0.2 mg prior to my evaluation with improvement in blood pressure. Severity scale (0 -10): 9 - Related Data Home Medications Medication Instructions Recorded Confirmed Last Taken RX: Methadone [Dolophine] 20 mg PO BID 03/19/19 08/22/19 08/18/19 Previous Rx's Medication Instructions Recorded Last Taken Type RX: Acetaminophen [Non-Aspirin 500 mg PO Q6HR PRN #30 tablet 06/02/19 08/15/19 Rx Extra Strength] RX: Ondansetron [Zofran ODT TAB] 4 mg PO Q8HR PRN #20 tab.rapdis 06/02/19 08/15/19 Rx RX: Folic Acid [Folvite] 1 mg PO DAILY #30 tablet 08/23/19 Unknown Rx RX: Hydroxyurea 500 mg PO DAILY #30 cap 08/23/19 Unknown Rx RX: Lisinopril [Zestril TAB] 40 mg PO QDAY #30 tablet 08/23/19 Unknown Rx RX: Oxycodone HCl/Acetaminophen 1 each PO Q12H PRN #6 tablet 08/23/19 Unknown Rx [Percocet 10/325 mg] RX: amLODIPine 10 mg PO QDAY #30 tablet 08/23/19 Unknown Rx RX: cloNIDine [Catapres] 0.2 mg PO BID #60 08/23/19 Unknown Rx RX: ALBUTEROL Inhaler (OR & NICU) 2 puff IH QID PRN #1 inhalation 09/10/19 Unknown Rx [ProAir HFA Inhaler] RX: predniSONE [Deltasone] 20 mg PO QDAY #5 tab 09/10/19 Unknown Rx Jazlyn Root [Jazlyn] 250 mg PO QID PRN #30 capsule 10/15/19 Unknown Rx Ondansetron [Zofran Odt] 4 mg PO Q8HR PRN #20 tab.rapdis 10/15/19 Unknown Rx Allergies Allergy/AdvReac Type Severity Reaction Status Date / Time morphine Allergy Shortness Verified 06/25/19 08:38 of Breath ED Review of Systems ROS: Stated complaint: SICKLE CELL PAIN Other details as noted in HPI Comment: All other systems reviewed and negative ED Past Medical Hx - Past Medical History Previous Medical History?: Yes Hx Hypertension: Yes Hx CVA: No Hx Heart Attack/AMI: No Hx Congestive Heart Failure: No Hx Diabetes: No Hx Sickle Cell Disease: Yes Hx Arthritis: Yes Hx Asthma: Yes Hx COPD: No Hx HIV: No Additional medical history: ANEMIA, multiple port infections - Surgical History Past Surgical History?: Yes Hx Cholecystectomy: Yes Additional Surgical History: , port removed June 2014. PICC line left upper arm (11/19/2014). . - Social History Smoking Status: Never Smoker Substance Use Type: None - Medications Home Medications: Home Medications Medication Instructions Recorded Confirmed Last Taken Type RX: Methadone [Dolophine] 20 mg PO BID 03/19/19 08/22/19 08/18/19 History RX: Acetaminophen [Non-Aspirin 500 mg PO Q6HR PRN #30 tablet 06/02/19 08/22/19 08/15/19 Rx Extra Strength] RX: Ondansetron [Zofran ODT TAB] 4 mg PO Q8HR PRN #20 tab.rapdis 06/02/19 08/22/19 08/15/19 Rx RX: Folic Acid [Folvite] 1 mg PO DAILY #30 tablet 08/23/19 Unknown Rx RX: Hydroxyurea 500 mg PO DAILY #30 cap 08/23/19 Unknown Rx RX: Lisinopril [Zestril TAB] 40 mg PO QDAY #30 tablet 08/23/19 Unknown Rx RX: Oxycodone HCl/Acetaminophen 1 each PO Q12H PRN #6 tablet 08/23/19 Unknown Rx [Percocet 10/325 mg] RX: amLODIPine 10 mg PO QDAY #30 tablet 08/23/19 Unknown Rx RX: cloNIDine [Catapres] 0.2 mg PO BID #60 08/23/19 Unknown Rx RX: ALBUTEROL Inhaler (OR & NICU) 2 puff IH QID PRN #1 inhalation 09/10/19 Unknown Rx [ProAir HFA Inhaler] RX: predniSONE [Deltasone] 20 mg PO QDAY #5 tab 09/10/19 Unknown Rx Jazlyn Root [Jazlyn] 250 mg PO QID PRN #30 capsule 10/15/19 Unknown Rx Ondansetron [Zofran Odt] 4 mg PO Q8HR PRN #20 tab.rapdis 10/15/19 Unknown Rx ED Physical Exam - General Limitations: No Limitations - Other Other exam information: General: No acute distress Head: Atraumatic Eyes: normal appearance ENT: Moist mucous membranes Neck: Normal appearance, no midline tenderness Chest: Clear to auscultation bilaterally CV: Regular rate and rhythm Abdomen: Soft, normal bowel sounds, nontender, nondistended, no rebound or guarding Back: Diffuse lumbar paraspinal muscle tenderness on palpation Extremity: Normal inspection infection, full range of motion Neuro: Alert O x 3, no facial asymmetry, speech clear, no gross motor sensory deficit Psych: Appropriate behavior Skin: No rash ED Course Vital Signs 10/17/19 10/17/19 10/17/19 08:56 09:07 10:27 Temperature 98.9 F 98.3 F Pulse Rate 91 H 89 91 H Respiratory 20 20 Rate Blood Pressure 201/106 201/106 180/96 O2 Sat by Pulse 94 95 Oximetry ED Medical Decision Making - Lab Data Result diagrams: 10/17/19 14:47 10/17/19 14:47 Lab Results 10/17/19 10/17/19 10/17/19 Range/Units 14:47 14:47 16:04 WBC 19.6 H (4.5-11.0) K/mm3 RBC 2.74 L (3.65-5.03) M/mm3 Hgb 8.8 L (10.1-14.3) gm/dl Hct 26.3 L (30.3-42.9) % MCV 96 (79-97) fl MCH 32 (28-32) pg MCHC 33 (30-34) % RDW 22.7 H (13.2-15.2) % Plt Count 261 (140-440) K/mm3 Add Manual Diff Complete Total Counted 100 Seg Neuts % (Manual) 74.0 H (40.0-70.0) % Band Neutrophils % 1.0 % Lymphocytes % (Manual) 20.0 (13.4-35.0) % Reactive Lymphs % (Man) 0 % Monocytes % (Manual) 2.0 (0.0-7.3) % Eosinophils % (Manual) 2.0 (0.0-4.3) % Basophils % (Manual) 0 (0.0-1.8) % Metamyelocytes % 1.0 % Myelocytes % 0 % Promyelocytes % 0 % Blast Cells % 0 % Nucleated RBC % 21.0 H (0.0-0.9) % Seg Neutrophils # Man 14.5 H (1.8-7.7) K/mm3 Band Neutrophils # 0.2 K/mm3 Lymphocytes # (Manual) 3.9 (1.2-5.4) K/mm3 Abs React Lymphs (Man) 0.0 K/mm3 Monocytes # (Manual) 0.4 (0.0-0.8) K/mm3 Eosinophils # (Manual) 0.4 (0.0-0.4) K/mm3 Basophils # (Manual) 0.0 (0.0-0.1) K/mm3 Metamyelocytes # 0.2 K/mm3 Myelocytes # 0.0 K/mm3 Promyelocytes # 0.0 K/mm3 Blast Cells # 0.0 K/mm3 WBC Morphology Not Reportable Hypersegmented Neuts Not Reportable Hyposegmented Neuts Not Reportable Hypogranular Neuts Not Reportable Smudge Cells Not Reportable Toxic Granulation Not Reportable Toxic Vacuolation Not Reportable Dohle Bodies Not Reportable Pelger-Huet Anomaly Not Reportable Ariadne Rods Not Reportable Platelet Estimate Consistent w auto Clumped Platelets Not Reportable Plt Clumps, EDTA Not Reportable Large Platelets 1+ Giant Platelets Not Reportable Platelet Satelliting Not Reportable Plt Morphology Comment Not Reportable RBC Morphology Not Reportable Dimorphic RBCs Not Reportable Polychromasia 1+ Hypochromasia Not Reportable Poikilocytosis Not Reportable Anisocytosis 1+ Microcytosis Not Reportable Macrocytosis Not Reportable Spherocytes Not Reportable Pappenheimer Bodies Not Reportable Sickle Cells 1+ Target Cells 1+ Tear Drop Cells Not Reportable Ovalocytes Not Reportable Helmet Cells Not Reportable Walters-[place] Bodies Not Reportable [place] Rings Not Reportable Hooven Cells Not Reportable Bite Cells Not Reportable Crenated Cell Not Reportable Elliptocytes 1+ Acanthocytes (Spur) Not Reportable Rouleaux Not Reportable Hemoglobin C Crystals Not Reportable Schistocytes Not Reportable Malaria parasites Not Reportable Percent Retic 13.92 H (0.78-2.58) % Alexis Bodies Not Reportable Hem Pathologist Commnt No Sodium 137 (137-145) mmol/L Potassium 3.7 (3.6-5.0) mmol/L Chloride 100.6 (98-107) mmol/L Carbon Dioxide 22 (22-30) mmol/L Anion Gap 18 mmol/L BUN 10 (7-17) mg/dL Creatinine 0.7 (0.7-1.2) mg/dL Estimated GFR > 60 ml/min BUN/Creatinine Ratio 14 % Glucose 131 H (65-100) mg/dL Calcium 8.9 (8.4-10.2) mg/dL Total Bilirubin 1.40 H (0.1-1.2) mg/dL AST 35 (5-40) units/L ALT 33 (7-56) units/L Alkaline Phosphatase 188 H (35-129) units/L Total Protein 6.4 (6.3-8.2) g/dL Albumin 3.6 L (3.9-5) g/dL Albumin/Globulin Ratio 1.3 % HCG, Qual Negative (Negative) Urine Color (Yellow) Urine Turbidity (Clear) Urine pH (5.0-7.0) Ur Specific [place] (1.003-1.030) Urine Protein (Negative) mg/dL Urine Glucose (UA) (Negative) mg/dL Urine Ketones (Negative) mg/dL Urine Blood (Negative) Urine Nitrite (Negative) Urine Bilirubin (Negative) Urine Urobilinogen (<2.0) mg/dL Ur Leukocyte Esterase (Negative) Urine WBC (Auto) (0.0-6.0) /HPF Urine RBC (Auto) (0.0-6.0) /HPF U Epithel Cells (Auto) (0-13.0) /HPF Urine Mucus /HPF 10/17/19 Range/Units 16:28 WBC (4.5-11.0) K/mm3 RBC (3.65-5.03) M/mm3 Hgb (10.1-14.3) gm/dl Hct (30.3-42.9) % MCV (79-97) fl MCH (28-32) pg MCHC (30-34) % RDW (13.2-15.2) % Plt Count (140-440) K/mm3 Add Manual Diff Total Counted Seg Neuts % (Manual) (40.0-70.0) % Band Neutrophils % % Lymphocytes % (Manual) (13.4-35.0) % Reactive Lymphs % (Man) % Monocytes % (Manual) (0.0-7.3) % Eosinophils % (Manual) (0.0-4.3) % Basophils % (Manual) (0.0-1.8) % Metamyelocytes % % Myelocytes % % Promyelocytes % % Blast Cells % % Nucleated RBC % (0.0-0.9) % Seg Neutrophils # Man (1.8-7.7) K/mm3 Band Neutrophils # K/mm3 Lymphocytes # (Manual) (1.2-5.4) K/mm3 Abs React Lymphs (Man) K/mm3 Monocytes # (Manual) (0.0-0.8) K/mm3 Eosinophils # (Manual) (0.0-0.4) K/mm3 Basophils # (Manual) (0.0-0.1) K/mm3 Metamyelocytes # K/mm3 Myelocytes # K/mm3 Promyelocytes # K/mm3 Blast Cells # K/mm3 WBC Morphology Hypersegmented Neuts Hyposegmented Neuts Hypogranular Neuts Smudge Cells Toxic Granulation Toxic Vacuolation Dohle Bodies Pelger-Huet Anomaly Ariadne Rods Platelet Estimate Clumped Platelets Plt Clumps, EDTA Large Platelets Giant Platelets Platelet Satelliting Plt Morphology Comment RBC Morphology Dimorphic RBCs Polychromasia Hypochromasia Poikilocytosis Anisocytosis Microcytosis Macrocytosis Spherocytes Pappenheimer Bodies Sickle Cells Target Cells Tear Drop Cells Ovalocytes Helmet Cells Walters-[place] Bodies [place] Rings Betsy Cells Bite Cells Crenated Cell Elliptocytes Acanthocytes (Spur) Rouleaux Hemoglobin C Crystals Schistocytes Malaria parasites Percent Retic (0.78-2.58) % Alexis Bodies Hem Pathologist Commnt Sodium (137-145) mmol/L Potassium (3.6-5.0) mmol/L Chloride (98-107) mmol/L Carbon Dioxide (22-30) mmol/L Anion Gap mmol/L BUN (7-17) mg/dL Creatinine (0.7-1.2) mg/dL Estimated GFR ml/min BUN/Creatinine Ratio % Glucose (65-100) mg/dL Calcium (8.4-10.2) mg/dL Total Bilirubin (0.1-1.2) mg/dL AST (5-40) units/L ALT (7-56) units/L Alkaline Phosphatase (35-129) units/L Total Protein (6.3-8.2) g/dL Albumin (3.9-5) g/dL Albumin/Globulin Ratio % HCG, Qual (Negative) Urine Color Yellow (Yellow) Urine Turbidity Clear (Clear) Urine pH 7.0 (5.0-7.0) Ur Specific [place] 1.010 (1.003-1.030) Urine Protein >500 (Negative) mg/dL Urine Glucose (UA) Neg (Negative) mg/dL Urine Ketones Neg (Negative) mg/dL Urine Blood Neg (Negative) Urine Nitrite Neg (Negative) Urine Bilirubin Neg (Negative) Urine Urobilinogen < 2.0 (<2.0) mg/dL Ur Leukocyte Esterase Neg (Negative) Urine WBC (Auto) 5.0 (0.0-6.0) /HPF Urine RBC (Auto) 2.0 (0.0-6.0) /HPF U Epithel Cells (Auto) 6.0 (0-13.0) /HPF Urine Mucus Few /HPF - Medical Decision Making pt feeling better with ed tx bp improved pain improved no transfusion needed ua neg for infection pt feels well enough go go home. follow up encouraged - Differential Diagnosis sickle cell crisis, anemia, hypertensive emergency Critical Care Time: No Critical care attestation.: If time is entered above; I have spent that time in minutes in the direct care of this critically ill patient, excluding procedure time. ED Disposition Clinical Impression: Anemia, sickle cell with crisis, HTN (hypertension) Disposition: TO HOME OR SELFCARE Is pt being admited?: No Does the pt Need Aspirin: No Condition: Stable Instructions: Hypertension (ED), Sickle Cell Crisis (ED) Additional Instructions: Continue your current medication. Follow-up with your doctor or doctor/clinic provided. Return if symptoms worsen as indicated by your discharge instructions. Referrals: MD Brian [Other] - 3-5 Days (Home Health Care Provider) Time of Disposition: 17:58
[2019-10-17] MEDS ORDERED: D5W/0.2% NACL 1,000 ML IV SCH (15:00)
[2019-10-17 15:20] LABS: Hematocrit 26.3 % (30.3-42.9); Hemoglobin 8.8 gm/dl (10.1-14.3); Mean Corpuscular HGB Conc 33 % (30-34); Mean Corpuscular Volume 96 fl (79-97); Platelet Count 261 K/mm3 (140-440); Red Blood Count 2.74 M/mm3 (3.65-5.03)
[2019-10-17 15:26] LABS: Red Cell Distribution Width 22.7 % (13.2-15.2)
[2019-10-17 16:16] LABS: Alanine Aminotransferase 33 units/L (7-56); Albumin 3.6 g/dL (3.9-5); BUN/Creatinine Ratio 14; Blood Urea Nitrogen 10 mg/dL (7-17); Calcium 8.9 mg/dL (8.4-10.2); Hemolysis Index 8
[2019-10-17 16:33] LABS: Band Neutrophils # (Manual) 0.2 K/mm3; Basophils % (Manual) 0 % (0.0-1.8); Total Cells Counted 100
[2019-10-17 16:34] LABS: Anisocytosis 1+; Target Cells 1+
[2019-10-17 16:35] LABS: Sickle Cells 1+
[2019-10-17 16:36] LABS: Large Platelets 1+; Platelet Estimate Consistent w Auto
[2019-10-17 17:05] LABS: Bilirubin,Urine NEG (Negative); Blood,Urine NEG (Negative); Color,Urine Yellow (Yellow); Mucus,Urine FEW /HPF; Urobilinogen,Urine < 2.0 mg/dL (<2.0)
[2019-10-17 17:11] LABS: Protein,Urine >500 mg/dL (Negative)
[2019-10-17 18:42] VITALS: BP 150/69
== END 2019-10-17 18:20 | disposition home or self-care (01) ==
LOC: ED 08:50
DX: D57.00 Hb-SS disease with crisis, unspecified (principal); R11.10 Vomiting, unspecified; I10 Essential (primary) hypertension; M19.90 Unspecified osteoarthritis, unspecified site; J45.909 Unspecified asthma, uncomplicated; Z98.890 Other specified postprocedural states; Z79.899 Other long term (current) drug therapy; Z88.4 Allergy status to anesthetic agent
CPT/HCPCS: 36415; 80053; 81001; 84703; 85007; 85025; 85045; 96361; 96374; 96375; 96376; 99283; J1170; J1200; J1642; J1885; J2405

== ENCOUNTER 2019-10-19 18:54 | Inpatient (IN) | payer MEDICAID ==
--- NOTE | 2019-10-19 19:07 | Event Note ---
ED Screening Note Date of service: 10/19/19 Time: 19:03 ED Screening Note: This is a 34 y.o. F. that presents to the ER with generalized pain for 1 day. PMH of sickle cell, HTN, and chronic pain LMP 10/18/2019 This initial assessment/diagnostic orders/clinical plan/treatment(s) is/are subject to change based on patients health status, clinical progression and re- assessment by fellow clinical providers in the ED. Further treatment and workup at subsequent clinical providers discretion. Patient/guardian urged not to elope from the ED as their condition may be serious if not clinically assessed and managed. Initial orders include: Labs
[2019-10-19] MEDS ORDERED: SODIUM CHLORIDE IRRI 500 ML 0 ML IR ONE (20:59)
[2019-10-19 21:21] LABS: Hematocrit 26.8 % (30.3-42.9); Mean Corpuscular HGB Conc 34 % (30-34); Mean Corpuscular Volume 96 fl (79-97); Platelet Count 288 K/mm3 (140-440); Red Blood Count 2.78 M/mm3 (3.65-5.03)
[2019-10-19 21:25] LABS: Red Cell Distribution Width 22.8 % (13.2-15.2)
[2019-10-19 22:08] LABS: Basophils % (Manual) 0 % (0.0-1.8); Total Cells Counted 100
[2019-10-19 22:09] LABS: Anisocytosis 1+
[2019-10-19 22:10] LABS: Sickle Cells 2+
[2019-10-19 22:11] LABS: Hypochromasia 1+; Large Platelets 1+; Platelet Estimate Consistent w Auto; Target Cells 1+
[2019-10-19] MEDS ORDERED: diphenhydrAMINE 50 MG/ML VIAL IV ONE (22:33)
[2019-10-19] MEDS ORDERED: ONDANSETRON 4 MG/2 ML INJ IV ONE (22:33)
[2019-10-19] MEDS ORDERED: HYDROmorphone 2 MG/1 ML INJ IV ONE (22:33)
[2019-10-19] MEDS ORDERED: D5W/0.2% NACL 1,000 ML IV SCH (23:00)
--- NOTE | 2019-10-19 23:39 | Emergency Department Report ---
ED General Adult HPI - General Chief complaint: Sickle Cell Crisis Stated complaint: SICKLE CELL CRISIS Time Seen by Provider: 10/19/19 19:03 Source: patient Mode of arrival: Ambulatory Limitations: No Limitations - History of Present Illness Initial comments: Zoran is a 34-year-old female with history of sickle cell disease who presents with pain in her back and legs several days. She has had several ED visits within the last week. Pain is uncontrolled with her home regimen. She has10/10 pain. She denies fever, chest pain, shortness of breath. Gradual onset pain for the last several days. -: Gradual, days(s) (several) Location: back, left, right, lower extremity Severity scale (0 -10): 10 Quality: aching Consistency: constant Improves with: none Worsens with: none Associated Symptoms: denies other symptoms - Related Data Home Medications Medication Instructions Recorded Confirmed Last Taken Methadone [Dolophine] 20 mg PO BID 03/19/19 08/22/19 08/18/19 Previous Rx's Medication Instructions Recorded Last Taken Type Acetaminophen [Non-Aspirin Extra 500 mg PO Q6HR PRN #30 tablet 06/02/19 08/15/19 Rx Strength] Ondansetron [Zofran ODT TAB] 4 mg PO Q8HR PRN #20 tab.rapdis 06/02/19 08/15/19 Rx Folic Acid [Folvite] 1 mg PO DAILY #30 tablet 08/23/19 Unknown Rx Hydroxyurea 500 mg PO DAILY #30 cap 08/23/19 Unknown Rx Lisinopril [Zestril TAB] 40 mg PO QDAY #30 tablet 08/23/19 Unknown Rx Oxycodone HCl/Acetaminophen 1 each PO Q12H PRN #6 tablet 08/23/19 Unknown Rx [Percocet 10/325 mg] amLODIPine 10 mg PO QDAY #30 tablet 08/23/19 Unknown Rx cloNIDine [Catapres] 0.2 mg PO BID #60 08/23/19 Unknown Rx ALBUTEROL Inhaler (OR & NICU) 2 puff IH QID PRN #1 inhalation 09/10/19 Unknown Rx [ProAir HFA Inhaler] predniSONE [Deltasone] 20 mg PO QDAY #5 tab 09/10/19 Unknown Rx Jazlyn Root [Jazlyn] 250 mg PO QID PRN #30 capsule 10/15/19 Unknown Rx Ondansetron [Zofran Odt] 4 mg PO Q8HR PRN #20 tab.rapdis 10/15/19 Unknown Rx Allergies Allergy/AdvReac Type Severity Reaction Status Date / Time morphine Allergy Shortness Verified 10/19/19 18:58 of Breath ED Review of Systems ROS: Stated complaint: SICKLE CELL CRISIS Other details as noted in HPI Comment: All other systems reviewed and negative Constitutional: denies: chills, fever, malaise Respiratory: denies: cough, shortness of breath Gastrointestinal: denies: abdominal pain, nausea Musculoskeletal: back pain, myalgia ED Past Medical Hx - Past Medical History Previous Medical History?: Yes Hx Hypertension: Yes Hx CVA: No Hx Heart Attack/AMI: No Hx Congestive Heart Failure: No Hx Diabetes: No Hx Sickle Cell Disease: Yes Hx Arthritis: Yes Hx Asthma: Yes Hx COPD: No Hx HIV: No Additional medical history: ANEMIA, multiple port infections - Surgical History Past Surgical History?: Yes Hx Cholecystectomy: Yes Additional Surgical History: , port removed June 2014. PICC line left upper arm (11/19/2014). . - Social History Smoking Status: Never Smoker Substance Use Type: None - Medications Home Medications: Home Medications Medication Instructions Recorded Confirmed Last Taken Type Methadone [Dolophine] 20 mg PO BID 03/19/19 08/22/19 08/18/19 History Acetaminophen [Non-Aspirin Extra 500 mg PO Q6HR PRN #30 tablet 06/02/19 08/22/19 08/15/19 Rx Strength] Ondansetron [Zofran ODT TAB] 4 mg PO Q8HR PRN #20 tab.rapdis 06/02/19 08/22/19 08/15/19 Rx Folic Acid [Folvite] 1 mg PO DAILY #30 tablet 08/23/19 Unknown Rx Hydroxyurea 500 mg PO DAILY #30 cap 08/23/19 Unknown Rx Lisinopril [Zestril TAB] 40 mg PO QDAY #30 tablet 08/23/19 Unknown Rx Oxycodone HCl/Acetaminophen 1 each PO Q12H PRN #6 tablet 08/23/19 Unknown Rx [Percocet 10/325 mg] amLODIPine 10 mg PO QDAY #30 tablet 08/23/19 Unknown Rx cloNIDine [Catapres] 0.2 mg PO BID #60 10/19/19 Unknown Rx ALBUTEROL Inhaler (OR & NICU) 2 puff IH QID PRN #1 inhalation 09/10/19 Unknown Rx [ProAir HFA Inhaler] predniSONE [Deltasone] 20 mg PO QDAY #5 tab 09/10/19 Unknown Rx Jazlyn Root [Jazlyn] 250 mg PO QID PRN #30 capsule 10/15/19 Unknown Rx Ondansetron [Zofran Odt] 4 mg PO Q8HR PRN #20 tab.rapdis 10/15/19 Unknown Rx ED Physical Exam - General Limitations: No Limitations General appearance: alert, in no apparent distress, other (appears chronically ill) - Head Head exam: Present: atraumatic, normocephalic - Eye Eye exam: Present: normal appearance - ENT ENT exam: Present: mucous membranes moist - Neck Neck exam: Present: normal inspection, full ROM - Respiratory Respiratory exam: Present: normal lung sounds bilaterally. Absent: respiratory distress, wheezes, rales - Cardiovascular Cardiovascular Exam: Present: regular rate, normal rhythm, normal heart sounds, other (port site CDI). Absent: systolic murmur, diastolic murmur, rubs, gallop - GI/Abdominal GI/Abdominal exam: Present: soft, normal bowel sounds. Absent: distended, tenderness, guarding, rebound - Extremities Exam Extremities exam: Present: normal inspection - Back Exam Back exam: Present: normal inspection - Neurological Exam Neurological exam: Present: alert, oriented X3 - Psychiatric Psychiatric exam: Present: normal affect, normal mood - Skin Skin exam: Present: warm, dry, normal color, other (hyperpigmented skin multiple dark plagues on skin). Absent: rash ED Course Vital Signs 10/19/19 10/19/19 19:06 21:38 Temperature 98.8 F Pulse Rate 107 H Respiratory 20 18 Rate Blood Pressure 186/100 O2 Sat by Pulse 100 Oximetry ED Medical Decision Making - Lab Data Result diagrams: 10/19/19 20:59 Laboratory Results - last 24 hr 10/19/19 20:59 WBC 20.1 H RBC 2.78 L Hgb 9.0 L Hct 26.8 L MCV 96 MCH 33 H MCHC 34 RDW 22.8 H Plt Count 288 Add Manual Diff Complete Total Counted 100 Seg Neuts % (Manual) 75.0 H Band Neutrophils % 0 Lymphocytes % (Manual) 19.0 Reactive Lymphs % (Man) 0 Monocytes % (Manual) 5.0 Eosinophils % (Manual) 1.0 Basophils % (Manual) 0 Metamyelocytes % 0 Myelocytes % 0 Promyelocytes % 0 Blast Cells % 0 Nucleated RBC % 4.0 H Seg Neutrophils # Man 15.1 H Band Neutrophils # 0.0 Lymphocytes # (Manual) 3.8 Abs React Lymphs (Man) 0.0 Monocytes # (Manual) 1.0 H Eosinophils # (Manual) 0.2 Basophils # (Manual) 0.0 Metamyelocytes # 0.0 Myelocytes # 0.0 Promyelocytes # 0.0 Blast Cells # 0.0 WBC Morphology Not Reportable Hypersegmented Neuts Not Reportable Hyposegmented Neuts Not Reportable Hypogranular Neuts Not Reportable Smudge Cells Not Reportable Toxic Granulation Not Reportable Toxic Vacuolation Not Reportable Dohle Bodies Not Reportable Pelger-Huet Anomaly Not Reportable Ariadne Rods Not Reportable Platelet Estimate Consistent w auto Clumped Platelets Not Reportable Plt Clumps, EDTA Not Reportable Large Platelets 1+ Giant Platelets Not Reportable Platelet Satelliting Not Reportable Plt Morphology Comment Not Reportable RBC Morphology Not Reportable Dimorphic RBCs Not Reportable Polychromasia 1+ Hypochromasia 1+ Poikilocytosis Not Reportable Anisocytosis 1+ Microcytosis Not Reportable Macrocytosis Not Reportable Spherocytes Not Reportable Pappenheimer Bodies Not Reportable Sickle Cells 2+ Target Cells 1+ Tear Drop Cells Not Reportable Ovalocytes Not Reportable Helmet Cells Not Reportable Walters-[place] Bodies Not Reportable [place] Rings Not Reportable Betsy Cells Not Reportable Bite Cells Not Reportable Crenated Cell Not Reportable Elliptocytes Not Reportable Acanthocytes (Spur) Not Reportable Rouleaux Not Reportable Hemoglobin C Crystals Not Reportable Schistocytes Not Reportable Malaria parasites Not Reportable Percent Retic 15.33 H Alexis Bodies Not Reportable Hem Pathologist Commnt No - Medical Decision Making Sickle Cell Disease Pain Crisis, concerned from increasing leukocytosis over the past several visits: Blood cultures obtained, Admitted to hospitalist service Critical care attestation.: If time is entered above; I have spent that time in minutes in the direct care of this critically ill patient, excluding procedure time. ED Disposition Clinical Impression: Anemia, sickle cell with crisis, Leukocytosis Disposition: [id number] OP ADMIT IP TO THIS HOSP Is pt being admited?: Yes Does the pt Need Aspirin: No Condition: Stable
--- NOTE | 2019-10-19 23:40 | XRay Report ---
CHEST 1 VIEW INDICATION / CLINICAL INFORMATION: sickle cell crisis leukocytosis. COMPARISON: 10/15/2019 FINDINGS: SUPPORT DEVICES: Port-A-Cath remains on the left. HEART / MEDIASTINUM: Moderately enlarged but stable. LUNGS / PLEURA: No significant pulmonary or pleural abnormality. No pneumothorax. ADDITIONAL FINDINGS: No significant additional findings. IMPRESSION: 1. No significant change Signer Name: Shankar Loja MD Signed: 10/19/2019 11:35 PM Workstation Name: [id number]
[2019-10-20] MEDS ORDERED: MAGNESIUM HYDROXIDE (MOM) ORAL LIQD UDC PO PRN ×2 (01:04)
[2019-10-20] MEDS ORDERED: ACETAMINOPHEN 325 MG TAB PO PRN (01:04)
[2019-10-20] MEDS ORDERED: ALBUTEROL 2.5 MG/3 ML NEBU IH PRN (01:04)
[2019-10-20] MEDS ORDERED: ONDANSETRON 4 MG/2 ML INJ IV PRN ×2 (01:04)
[2019-10-20] MEDS: HYDROmorphone 2 MG/1 ML INJ IV PRN ×7 (01:32→22:11)
[2019-10-20] MEDS: D5W/0.45% NACL 1,000 ML IV SCH ×3 (01:33→18:56)
[2019-10-20] MEDS: diphenhydrAMINE 50 MG/ML VIAL IV PRN ×4 (01:59→22:12)
--- NOTE | 2019-10-20 02:49 | History and Physical Report ---
History of Present Illness Date of examination: 10/20/19 Date of admission: 10/20/19 00:05 Chief complaint: Lower extremity and back pain History of present illness: 4-year-old -Monegas[place] female with known history of sickle cell disease presenting to the emergency room today complaining of follow-up back pain and bilateral lower extremity pain which has been ongoing for the past 2 days. She denies any fever or chills, she denies any chest pain or shortness of breath, no nausea vomiting. She also indicates that she just started her menstruation yesterday. She denies excessive vaginal bleeding. She has remained compliant with her medications. However pain has been uncontrolled with regular medications. She has had multiple visits to the emergency room lately for similar complaints. Past History Past Medical History: hypertension, other (Asthma, sickle cell disease) Past Surgical History: cholecystectomy, , Other (Multiple port placement and removal, PICC line placement on the left upper arm) Social history: no significant social history Family history: hypertension (Father has history of hypertension) Medications and Allergies Allergies Allergy/AdvReac Type Severity Reaction Status Date / Time morphine Allergy Shortness Verified 10/19/19 18:58 of Breath Home Medications Medication Instructions Recorded Confirmed Last Taken Type Methadone [Dolophine] 20 mg PO BID 03/19/19 10/20/19 08/18/19 History Acetaminophen [Non-Aspirin Extra 500 mg PO Q6HR PRN #30 tablet 06/02/19 10/20/19 08/15/19 Rx Strength] Ondansetron [Zofran ODT TAB] 4 mg PO Q8HR PRN #20 tab.rapdis 06/02/19 10/20/19 08/15/19 Rx Folic Acid [Folvite] 1 mg PO DAILY #30 tablet 08/23/19 10/20/19 Unknown Rx Hydroxyurea 500 mg PO DAILY #30 cap 08/23/19 10/20/19 Unknown Rx Lisinopril [Zestril TAB] 40 mg PO QDAY #30 tablet 08/23/19 10/20/19 Unknown Rx Oxycodone HCl/Acetaminophen 1 each PO Q12H PRN #6 tablet 08/23/19 10/20/19 Unknown Rx [Percocet 10/325 mg] amLODIPine 10 mg PO QDAY #30 tablet 08/23/19 10/20/19 Unknown Rx cloNIDine [Catapres] 0.2 mg PO BID #60 08/23/19 10/20/19 Unknown Rx ALBUTEROL Inhaler (OR & NICU) 2 puff IH QID PRN #1 inhalation 09/10/19 10/20/19 Unknown Rx [ProAir HFA Inhaler] predniSONE [Deltasone] 20 mg PO QDAY #5 tab 09/10/19 10/20/19 Unknown Rx Jazlyn Root [Jazlyn] 250 mg PO QID PRN #30 capsule 10/15/19 10/20/19 Unknown Rx Ondansetron [Zofran Odt] 4 mg PO Q8HR PRN #20 tab.rapdis 10/15/19 10/20/19 Unknown Rx Active Meds: Active Medications Acetaminophen (Tylenol) 650 mg PO Q4H PRN PRN Reason: Pain MILD(1-3)/Fever >100.5/VILLA Albuterol (Proventil) 2.5 mg IH Q4HRT PRN PRN Reason: Shortness Of Breath Bisacodyl (Dulcolax) 10 mg CA QDAY PRN PRN Reason: Constipation unrelieved by MOM Diphenhydramine HCl (Benadryl) 25 mg IV Q6H PRN PRN Reason: Itching Last Admin: 10/20/19 01:59 Dose: 25 mg Documented by: Folic Acid (Folvite) 1 mg PO QDAY [facility] Heparin Sodium (Porcine) (Heparin) 5,000 unit SUB-Q Q8HR CARIE Hydromorphone HCl (Dilaudid) 2 mg IV Q2H PRN PRN Reason: Pain , Severe (7-10) Stop: 10/21/19 01:03 Last Admin: 10/20/19 01:32 Dose: 2 mg Documented by: Dextrose/Sodium Chloride (D5/0.45ns) 1,000 mls @ 125 mls/hr IV DIRECT CARIE Last Admin: 10/20/19 01:33 Dose: 125 mls/hr Documented by: Magnesium Hydroxide (Milk Of Magnesia) 30 ml PO Q4H PRN PRN Reason: Constipation Magnesium Hydroxide (Milk Of Magnesia) 30 ml PO Q4H PRN PRN Reason: Constipation Multivitamins (Theragran Tab) 1 each PO QDAY CARIE Ondansetron HCl (Zofran) 4 mg IV Q8H PRN PRN Reason: Nausea And Vomiting Last Admin: 10/20/19 01:34 Dose: 4 mg Documented by: Damaris (Senokot) 17.2 mg PO QHS CARIE Sodium Chloride (Sodium Chloride Flush Syringe 10 Ml) 10 ml IV BID CARIE Sodium Chloride (Sodium Chloride Flush Syringe 10 Ml) 10 ml IV PRN PRN PRN Reason: LINE FLUSH Review of Systems Menstruation: currently menstrual Musculoskeletal: low back pain, other (Bilateral lower extremity pain) Exam - Constitutional Vitals: Temp Pulse Resp BP Pulse Ox 98.8 F 91 H 20 189/90 100 10/20/19 00:25 10/20/19 00:25 10/20/19 02:22 10/20/19 00:25 10/20/19 00:25 General appearance: Present: no acute distress, well-nourished - EENT Eyes: Present: PERRL, EOM intact ENT: hearing intact, clear oral mucosa, dentition normal - Neck Neck: Present: supple, normal ROM - Respiratory Respiratory effort: normal Respiratory: bilateral: CTA - Cardiovascular Rhythm: regular Heart Sounds: Present: S1 & S2 - Extremities Extremities: no ischemia, pulses intact, No edema Peripheral Pulses: within normal limits - Abdominal General gastrointestinal: Present: soft, non-tender, non-distended, normal bowel sounds - Integumentary Integumentary: Present: clear, warm, dry - Musculoskeletal Musculoskeletal: strength equal bilaterally - Psychiatric Psychiatric: appropriate mood/affect, intact judgment & insight, cooperative - Neurologic Neurologic: CNII-XII intact, moves all extremities Results - Labs CBC & Chem 7: 10/19/19 20:59 Labs: Abnormal lab results 10/19/19 Range/Units 20:59 WBC 20.1 H (4.5-11.0) K/mm3 RBC 2.78 L (3.65-5.03) M/mm3 Hgb 9.0 L (10.1-14.3) gm/dl Hct 26.8 L (30.3-42.9) % MCH 33 H (28-32) pg RDW 22.8 H (13.2-15.2) % Seg Neuts % (Manual) 75.0 H (40.0-70.0) % Nucleated RBC % 4.0 H (0.0-0.9) % Seg Neutrophils # Man 15.1 H (1.8-7.7) K/mm3 Monocytes # (Manual) 1.0 H (0.0-0.8) K/mm3 Percent Retic 15.33 H (0.78-2.58) % Assessment and Plan - Patient Problems (1) Sickle cell anemia with crisis Current Visit: Yes Status: Acute Plan to address problem: Patient placed on IV fluid and analgesic medication. We will monitor CBC including reticulocyte count (2) Anemia Current Visit: No Status: Acute Plan to address problem: We will continue to monitor CBC. (3) Leukocytosis Onset Date: 03/03/16 Current Visit: Yes Status: Acute Plan to address problem: Possibly reactive. No obvious source of infection. Will monitor CBC. (4) DVT prophylaxis Current Visit: No Status: Acute Plan to address problem: Patient placed on subcutaneous heparin. (5) Full code status Current Visit: Yes Status: Acute
[2019-10-20] MEDS: HEPARIN 5,000 UNIT/1 ML VIAL SUB-Q SCH ×4 (04:33→21:16)
[2019-10-20 05:02] LABS: Bilirubin,Urine NEG (Negative); Blood,Urine SM (Negative); Color,Urine Yellow (Yellow); Urobilinogen,Urine < 2.0 mg/dL (<2.0)
[2019-10-20 05:05] LABS: Protein,Urine >500 mg/dL (Negative)
[2019-10-20] MEDS ORDERED: ALBUTEROL 8.5 GM INHALATION IH PRN (05:14)
[2019-10-20] MEDS: cloNIDine 0.2 MG TAB PO SCH ×2 (08:00→17:00)
[2019-10-20] MEDS: METHADONE 10 MG TAB PO SCH ×2 (09:33→21:15)
[2019-10-20] MEDS: amLODIPine 10 MG TAB PO SCH (09:33)
[2019-10-20] MEDS: MULTIVITAMINS ,THERAPEUTIC TAB PO SCH (09:34)
[2019-10-20] MEDS: predniSONE 20 MG TAB PO SCH (09:34)
[2019-10-20] MEDS: FOLIC ACID 1 MG TAB PO SCH (09:34)
[2019-10-20] MEDS: LISINOPRIL 40 MG TAB PO SCH (09:34)
[2019-10-20] MEDS: HYDROXYUREA 500 MG CAP PO SCH (10:00)
[2019-10-20 11:56] LABS: Hematocrit 25.6 % (30.3-42.9); Hemoglobin 8.4 gm/dl (10.1-14.3); Mean Corpuscular HGB Conc 33 % (30-34); Mean Corpuscular Volume 97 fl (79-97); Platelet Count 261 K/mm3 (140-440); Red Blood Count 2.65 M/mm3 (3.65-5.03)
[2019-10-20 12:03] LABS: Red Cell Distribution Width 22.2 % (13.2-15.2)
--- NOTE | 2019-10-20 13:38 | Event Note ---
Date: 10/20/19 Patient seen in examining Admitted for sickle cell crisis will continue CURRENT MANAGEMENT DICTATED IN HPI
[2019-10-20] MEDS ORDERED: SENNOSIDES 8.6 MG TAB PO SCH (22:00)
[2019-10-21] MEDS ORDERED: MORPHINE 2 MG/1 ML INJ IV PRN (02:00)
[2019-10-21] MEDS: D5W/0.45% NACL 1,000 ML IV SCH ×2 (02:28→09:29)
[2019-10-21] MEDS: HYDROmorphone 2 MG/1 ML INJ IV PRN ×3 (02:37→09:31)
[2019-10-21] MEDS: KETOROLAC 30 MG/1 ML INJ IV SCH ×3 (02:38→11:18)
[2019-10-21] MEDS: HEPARIN 5,000 UNIT/1 ML VIAL SUB-Q SCH ×2 (06:00→13:34)
[2019-10-21] MEDS: diphenhydrAMINE 50 MG/ML VIAL IV PRN ×2 (06:17→14:41)
[2019-10-21 07:27] LABS: BUN/Creatinine Ratio 16; Blood Urea Nitrogen 16 mg/dL (7-17); Calcium 8.6 mg/dL (8.4-10.2)
[2019-10-21 07:28] LABS: Alanine Aminotransferase 29 units/L (7-56); Albumin 3.4 g/dL (3.9-5); Bilirubin,Direct 0.4 mg/dL (0-0.2); Hemolysis Index 7
[2019-10-21] MEDS: cloNIDine 0.2 MG TAB PO SCH (08:00)
[2019-10-21 09:00] LABS: INR 0.93 (0.87-1.13); Partial Thromboplastin Time 33.3 Sec. (24.2-36.6)
[2019-10-21] MEDS: METHADONE 10 MG TAB PO SCH (09:29)
[2019-10-21] MEDS: MULTIVITAMINS ,THERAPEUTIC TAB PO SCH (09:29)
[2019-10-21] MEDS: FOLIC ACID 1 MG TAB PO SCH (09:29)
[2019-10-21] MEDS: predniSONE 20 MG TAB PO SCH (09:30)
[2019-10-21] MEDS: amLODIPine 10 MG TAB PO SCH (09:30)
[2019-10-21 09:34] LABS: Hematocrit 24.7 % (30.3-42.9); Mean Corpuscular HGB Conc 32 % (30-34); Mean Corpuscular Volume 98 fl (79-97); Platelet Count 300 K/mm3 (140-440); Red Blood Count 2.53 M/mm3 (3.65-5.03)
[2019-10-21 09:53] LABS: Red Cell Distribution Width 22.5 % (13.2-15.2)
[2019-10-21 09:55] LABS: Basophils # (Auto) 0.2 K/mm3 (0.0-0.1); Eosinophils # (Auto) 0.2 K/mm3 (0.0-0.4); Eosinophils % (Auto) 0.9 % (0.0-4.3); Monocytes # (Auto) 1.5 K/mm3 (0.0-0.8); Monocytes % (Auto) 7.7 % (0.0-7.3)
[2019-10-21] MEDS: HYDROXYUREA 500 MG CAP PO SCH (10:00)
[2019-10-21] MEDS: LISINOPRIL 40 MG TAB PO SCH (10:00)
[2019-10-21 11:21] LABS: Basophils % (Manual) 0 % (0.0-1.8); Sickle Cells 1+; Total Cells Counted 100
[2019-10-21 11:22] LABS: Anisocytosis 1+; Burr Cells Few; Hypochromasia Few; Macrocytosis 1+; Target Cells Few
[2019-10-21 11:23] LABS: Platelet Estimate Consistent w Auto
--- NOTE | 2019-10-21 12:10 | Progress Note ---
Assessment and Plan (1) Sickle cell anemia with crisis Current Visit: Yes Status: Acute Plan to address problem: Patient placed on IV fluid and analgesic medication. We will monitor CBC including reticulocyte count (2) Anemia due to SCD Current Visit: No Status: Acute Plan to address problem: We will continue to monitor CBC. (3) Leukocytosis with SIRS Onset Date: 03/03/16 Current Visit: Yes Status: Acute Plan to address problem: Possibly reactive. No obvious source of infection. Will monitor CBC and w/o abx ordered blood cx, CXR negative, UA normal (4) DVT prophylaxis Current Visit: No Status: Acute Plan to address problem: Patient placed on subcutaneous heparin. (5) Full code status Current Visit: Yes Status: Acute Disposition: need inpt stay as still requiring IV pain meds. Subjective Date of service: 10/21/19 Objective - Constitutional Vitals: Vital Signs - 12hr 10/21/19 10/21/19 02:52 05:13 Temperature 97.9 F Pulse Rate 75 Respiratory 20 20 Rate Blood Pressure 122/58 O2 Sat by Pulse 96 Oximetry - Labs CBC & Chem 7: 10/21/19 06:00 10/21/19 06:00 Labs: Abnormal lab results 10/21/19 10/21/19 10/21/19 Range/Units 06:00 06:00 06:00 WBC 19.8 H (4.5-11.0) K/mm3 RBC 2.53 L (3.65-5.03) M/mm3 Hgb 8.0 L (10.1-14.3) gm/dl Hct 24.7 L (30.3-42.9) % MCV 98 H (79-97) fl RDW 22.5 H (13.2-15.2) % Sutter % (Auto) 7.7 H (0.0-7.3) % Sutter # 1.5 H (0.0-0.8) K/mm3 Baso # 0.2 H (0.0-0.1) K/mm3 Monocytes % (Manual) 9.0 H (0.0-7.3) % Nucleated RBC % 3.0 H (0.0-0.9) % Seg Neutrophils # 12.8 H (1.8-7.7) K/mm3 Seg Neutrophils # Man 13.5 H (1.8-7.7) K/mm3 Monocytes # (Manual) 1.8 H (0.0-0.8) K/mm3 Percent Retic 14.38 H (0.78-2.58) % Glucose 110 H (65-100) mg/dL Total Bilirubin 1.50 H (0.1-1.2) mg/dL Direct Bilirubin 0.4 H (0-0.2) mg/dL Alkaline Phosphatase 150 H (35-129) units/L Lactate Dehydrogenase (91-180) units/L Total Protein 6.1 L (6.3-8.2) g/dL Albumin 3.4 L (3.9-5) g/dL 10/21/19 Range/Units 06:00 WBC (4.5-11.0) K/mm3 RBC (3.65-5.03) M/mm3 Hgb (10.1-14.3) gm/dl Hct (30.3-42.9) % MCV (79-97) fl RDW (13.2-15.2) % Sutter % (Auto) (0.0-7.3) % Sutter # (0.0-0.8) K/mm3 Baso # (0.0-0.1) K/mm3 Monocytes % (Manual) (0.0-7.3) % Nucleated RBC % (0.0-0.9) % Seg Neutrophils # (1.8-7.7) K/mm3 Seg Neutrophils # Man (1.8-7.7) K/mm3 Monocytes # (Manual) (0.0-0.8) K/mm3 Percent Retic (0.78-2.58) % Glucose (65-100) mg/dL Total Bilirubin (0.1-1.2) mg/dL Direct Bilirubin (0-0.2) mg/dL Alkaline Phosphatase (35-129) units/L Lactate Dehydrogenase 374 H (91-180) units/L Total Protein (6.3-8.2) g/dL Albumin (3.9-5) g/dL
[2019-10-21 13:03] VITALS: BP 108/55
[2019-10-21] MEDS ORDERED: HYDROmorphone 1 MG/1 ML INJ IV ONE (14:31)
--- NOTE | 2019-10-21 15:20 | Discharge Summary ---
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 She was informed to come back if symptom worsen. Discharge diagnosis: (1) Sickle cell anemia with crisis Current Visit: Yes Status: Acute Plan to address problem: Patient placed on IV fluid and analgesic medication. We will monitor CBC including reticulocyte count (2) Anemia due to SCD Current Visit: No Status: Acute Plan to address problem: We will continue to monitor CBC. (3) Leukocytosis with SIRS Onset Date: 03/03/16 Current Visit: Yes Status: Acute Plan to address problem: Possibly reactive. No obvious source of infection. Will monitor CBC and w/o abx ordered blood cx, CXR negative, UA normal (4) DVT prophylaxis Current Visit: No Status: Acute Plan to address problem: Patient placed on subcutaneous heparin. (5) Full code status Current Visit: Yes Status: Acute Disposition: DC-01 TO HOME OR SELFCARE Time spent for discharge: 34 minutes Core Measure Documentation - Palliative Care Palliative Care/ Comfort Measures: Not Applicable Exam - Constitutional Vitals: Temp Pulse Resp BP Pulse Ox 97.9 F 71 18 108/55 91 10/21/19 12:02 10/21/19 12:02 10/21/19 12:02 10/21/19 12:02 10/21/19 12:02 Plan Activity: advance as tolerated Weight Bearing Status: Non-Weight Bearing Diet: low fat Additional Instructions: Please come back if symptom worsen or spiking fever. Plaease keep hydrated by drinking plenty of water Follow up with: PRIMARY CAREMD [Primary Care Provider] - 7 Days
[2019-10-21] MEDS ORDERED: NEOMY 3.5 MG/BACIT 400 UNITS/POLY B 5000 UNITS/GM OINT PACKET TP ONE (15:24)
== END 2019-10-21 16:01 | disposition home or self-care (01) | DRG 812 ==
LOC: ED 18:54 → 3A 10-20 00:05
PROVIDERS: ADMIT Internal Medicine Geriatric Medicine; ATTEND Internal Medicine
DX: D57.00 Hb-SS disease with crisis, unspecified (principal); D72.829 Elevated white blood cell count, unspecified; R65.10 Systemic inflammatory response syndrome (SIRS) of non-infectious origin without acute organ dysfunction; I10 Essential (primary) hypertension; M19.90 Unspecified osteoarthritis, unspecified site; G89.29 Other chronic pain; J45.909 Unspecified asthma, uncomplicated; Z90.49 Acquired absence of other specified parts of digestive tract; Z82.49 Family history of ischemic heart disease and other diseases of the circulatory system; Z88.5 Allergy status to narcotic agent; Z79.899 Other long term (current) drug therapy
CPT/HCPCS: 36415; 71045; 80048; 80053; 80076; 81001; 83615; 84703; 85007; 85025; 85027; 85045; 85610; 85730; 87040; 87116; 94640; 96361; 96374; 96375; 96376; 99283; G0378; A6250; J1170; J1200; J1642; J1644; J1885; J2405; J7512

== ENCOUNTER 2019-10-26 10:22 | Emergency (ER) | payer MEDICAID ==
[2019-10-26] MEDS ORDERED: diphenhydrAMINE 50 MG/ML VIAL IV ONE ×2 (11:11→12:54)
[2019-10-26] MEDS ORDERED: KETOROLAC 30 MG/1 ML INJ IV ONE (11:11)
[2019-10-26] MEDS ORDERED: ONDANSETRON 4 MG/2 ML INJ IV ONE (11:11)
[2019-10-26] MEDS ORDERED: HYDROmorphone 2 MG/1 ML INJ IV ONE ×3 (11:11→14:11)
[2019-10-26] MEDS ORDERED: cloNIDine 0.2 MG TAB PO ONE (11:18)
--- NOTE | 2019-10-26 11:33 | Emergency Department Report ---
ED General Adult HPI - General Chief complaint: Sickle Cell Crisis Stated complaint: SICKLE CELL CRISIS Time Seen by Provider: 10/26/19 11:08 Source: patient Mode of arrival: Ambulatory Limitations: No Limitations - History of Present Illness Initial comments: 34 yo female with a past medical past medical history of sickle cell disease and multiple ER visits for crisis presents to the hospital complaining of sickle cell crisis since yesterday. Patient started her menstrual cycle which triggers her crisis at times. She also has intermittent nausea vomiting secondary to her menstrual cycle and did not take her a.m. blood pressure medication due to nausea and vomiting. Patient is on chronic narcotic pain medication including methadone and Percocet patient takes methadone and Percocet for chronic pain of sickle cell related pain. - Related Data Home Medications Medication Instructions Recorded Confirmed Last Taken Methadone [Dolophine] 20 mg PO BID 03/19/19 10/20/19 08/18/19 Previous Rx's Medication Instructions Recorded Last Taken Type Acetaminophen [Non-Aspirin Extra 500 mg PO Q6HR PRN #30 tablet 06/02/19 08/15/19 Rx Strength] Ondansetron [Zofran ODT TAB] 4 mg PO Q8HR PRN #20 tab.rapdis 06/02/19 08/15/19 Rx Folic Acid [Folvite] 1 mg PO DAILY #30 tablet 08/23/19 Unknown Rx Hydroxyurea 500 mg PO DAILY #30 cap 08/23/19 Unknown Rx Oxycodone HCl/Acetaminophen 1 each PO Q12H PRN #6 tablet 08/23/19 Unknown Rx [Percocet 10/325 mg] amLODIPine 10 mg PO QDAY #30 tablet 08/23/19 Unknown Rx cloNIDine [Catapres] 0.2 mg PO BID #60 08/23/19 Unknown Rx lisinopriL [Zestril TAB] 40 mg PO QDAY #30 tablet 08/23/19 Unknown Rx ALBUTEROL Inhaler (OR & NICU) 2 puff IH QID PRN #1 inhalation 09/10/19 Unknown Rx [ProAir HFA Inhaler] predniSONE [Deltasone] 20 mg PO QDAY #5 tab 09/10/19 Unknown Rx Jazlyn Root [Jazlyn] 250 mg PO QID PRN #30 capsule 10/15/19 Unknown Rx Ondansetron [Zofran ODT TAB] 4 mg PO Q8HR PRN #20 tab.rapdis 10/15/19 Unknown Rx Allergies Allergy/AdvReac Type Severity Reaction Status Date / Time morphine Allergy Shortness Verified 10/19/19 18:58 of Breath ED Review of Systems ROS: Stated complaint: SICKLE CELL CRISIS Other details as noted in HPI Comment: All other systems reviewed and negative ED Past Medical Hx - Past Medical History Previous Medical History?: Yes Hx Hypertension: Yes Hx CVA: No Hx Heart Attack/AMI: No Hx Congestive Heart Failure: No Hx Diabetes: No Hx Sickle Cell Disease: Yes Hx Arthritis: Yes Hx Asthma: Yes Hx COPD: No Hx HIV: No Additional medical history: ANEMIA, multiple port infections - Surgical History Past Surgical History?: Yes Hx Cholecystectomy: Yes Additional Surgical History: , port removed June 2014. PICC line left upper arm (11/19/2014). . - Social History Smoking Status: Never Smoker Substance Use Type: Prescribed - Medications Home Medications: Home Medications Medication Instructions Recorded Confirmed Last Taken Type Methadone [Dolophine] 20 mg PO BID 03/19/19 10/20/19 08/18/19 History Acetaminophen [Non-Aspirin Extra 500 mg PO Q6HR PRN #30 tablet 06/02/19 10/20/19 08/15/19 Rx Strength] Ondansetron [Zofran ODT TAB] 4 mg PO Q8HR PRN #20 tab.rapdis 06/02/19 10/20/19 08/15/19 Rx Folic Acid [Folvite] 1 mg PO DAILY #30 tablet 08/23/19 10/20/19 Unknown Rx Hydroxyurea 500 mg PO DAILY #30 cap 08/23/19 10/20/19 Unknown Rx Oxycodone HCl/Acetaminophen 1 each PO Q12H PRN #6 tablet 08/23/19 10/20/19 Unknown Rx [Percocet 10/325 mg] amLODIPine 10 mg PO QDAY #30 tablet 08/23/19 10/20/19 Unknown Rx cloNIDine [Catapres] 0.2 mg PO BID #60 08/23/19 10/20/19 Unknown Rx lisinopriL [Zestril TAB] 40 mg PO QDAY #30 tablet 08/23/19 10/20/19 Unknown Rx ALBUTEROL Inhaler (OR & NICU) 2 puff IH QID PRN #1 inhalation 09/10/19 10/20/19 Unknown Rx [ProAir HFA Inhaler] predniSONE [Deltasone] 20 mg PO QDAY #5 tab 09/10/19 10/20/19 Unknown Rx Jazlyn Root [Jazlyn] 250 mg PO QID PRN #30 capsule 10/15/19 10/20/19 Unknown Rx Ondansetron [Zofran ODT TAB] 4 mg PO Q8HR PRN #20 tab.rapdis 10/15/19 10/20/19 Unknown Rx ED Physical Exam - General Limitations: No Limitations - Other Other exam information: General: No acute distress Head: Atraumatic Eyes: normal appearance ENT: Moist mucous membranes Neck: Normal appearance, no midline tenderness Chest: Clear to auscultation bilaterally CV: Regular rate and rhythm Abdomen: Soft, normal bowel sounds, nontender, nondistended, no rebound or guarding Back: Normal inspection, diffuse lumbar midline and paraspinal muscle tenderness Extremity: Normal inspection infection, full range of motion, no joint swelling, erythema, warmth Neuro: Alert O x 3, no facial asymmetry, speech clear, no gross motor sensory deficit Psych: Appropriate behavior Skin: No rash ED Course Vital Signs 10/26/19 10/26/19 10/26/19 10:24 11:36 11:45 Temperature 99.2 F Pulse Rate 97 H 92 H Respiratory 20 Rate Blood Pressure 222/119 236/133 Blood Pressure [Left] O2 Sat by Pulse 98 97 Oximetry 10/26/19 10/26/19 10/26/19 11:46 11:49 12:04 Temperature Pulse Rate 92 H 88 87 Respiratory 17 Rate Blood Pressure Blood Pressure 236/133 213/106 212/99 [Left] O2 Sat by Pulse 94 Oximetry 10/26/19 10/26/19 10/26/19 12:19 12:34 12:43 Temperature Pulse Rate 87 84 Respiratory Rate Blood Pressure 236/133 Blood Pressure 196/99 189/95 [Left] O2 Sat by Pulse 94 Oximetry 10/26/19 10/26/19 10/26/19 13:00 13:16 13:30 Temperature Pulse Rate Respiratory Rate Blood Pressure 189/95 158/78 154/81 Blood Pressure [Left] O2 Sat by Pulse 94 93 94 Oximetry 10/26/19 10/26/19 10/26/19 13:46 14:00 14:16 Temperature Pulse Rate Respiratory Rate Blood Pressure 154/81 154/81 167/83 Blood Pressure [Left] O2 Sat by Pulse 74 L 96 92 Oximetry ED Medical Decision Making - Lab Data Result diagrams: 10/26/19 11:10/26/19 11:22 Lab Results 10/26/19 10/26/19 Range/Units 11:22 11:22 WBC 15.2 H (4.5-11.0) K/mm3 RBC 2.86 L (3.65-5.03) M/mm3 Hgb 9.1 L (10.1-14.3) gm/dl Hct 27.6 L (30.3-42.9) % MCV 96 (79-97) fl MCH 32 (28-32) pg MCHC 33 (30-34) % RDW 22.3 H (13.2-15.2) % Plt Count 522 H (140-440) K/mm3 Add Manual Diff Complete Total Counted 100 Seg Neuts % (Manual) 68.0 (40.0-70.0) % Band Neutrophils % 0 % Lymphocytes % (Manual) 24.0 (13.4-35.0) % Reactive Lymphs % (Man) 2.0 % Monocytes % (Manual) 4.0 (0.0-7.3) % Eosinophils % (Manual) 2.0 (0.0-4.3) % Basophils % (Manual) 0 (0.0-1.8) % Metamyelocytes % 0 % Myelocytes % 0 % Promyelocytes % 0 % Blast Cells % 0 % Nucleated RBC % 8.0 H (0.0-0.9) % Seg Neutrophils # Man 10.3 H (1.8-7.7) K/mm3 Band Neutrophils # 0.0 K/mm3 Lymphocytes # (Manual) 3.6 (1.2-5.4) K/mm3 Abs React Lymphs (Man) 0.3 K/mm3 Monocytes # (Manual) 0.6 (0.0-0.8) K/mm3 Eosinophils # (Manual) 0.3 (0.0-0.4) K/mm3 Basophils # (Manual) 0.0 (0.0-0.1) K/mm3 Metamyelocytes # 0.0 K/mm3 Myelocytes # 0.0 K/mm3 Promyelocytes # 0.0 K/mm3 Blast Cells # 0.0 K/mm3 WBC Morphology Not Reportable Hypersegmented Neuts Not Reportable Hyposegmented Neuts Not Reportable Hypogranular Neuts Not Reportable Smudge Cells Not Reportable Toxic Granulation Not Reportable Toxic Vacuolation Not Reportable Dohle Bodies Not Reportable Pelger-Huet Anomaly Not Reportable Ariadne Rods Not Reportable Platelet Estimate Consistent w auto Clumped Platelets Not Reportable Plt Clumps, EDTA Not Reportable Large Platelets Few Giant Platelets Not Reportable Platelet Satelliting Not Reportable Plt Morphology Comment Not Reportable RBC Morphology Not Reportable Dimorphic RBCs Not Reportable Polychromasia 1+ Hypochromasia Not Reportable Poikilocytosis Not Reportable Anisocytosis Not Reportable Microcytosis Not Reportable Macrocytosis Not Reportable Spherocytes Not Reportable Pappenheimer Bodies Not Reportable Sickle Cells 2+ Target Cells 2+ Tear Drop Cells Not Reportable Ovalocytes Not Reportable Helmet Cells Not Reportable Walters-Glenvil Bodies Not Reportable Ohiopyle Rings Not Reportable Betsy Cells Not Reportable Bite Cells Not Reportable Crenated Cell Not Reportable Elliptocytes Not Reportable Acanthocytes (Spur) Not Reportable Rouleaux Not Reportable Hemoglobin C Crystals Not Reportable Schistocytes Not Reportable Malaria parasites Not Reportable Percent Retic 15.88 H (0.78-2.58) % Alexis Bodies Not Reportable Hem Pathologist Commnt No Sodium 141 (137-145) mmol/L Potassium 4.0 (3.6-5.0) mmol/L Chloride 102.8 (98-107) mmol/L Carbon Dioxide 22 (22-30) mmol/L Anion Gap 20 mmol/L BUN 8 (7-17) mg/dL Creatinine 0.7 (0.7-1.2) mg/dL Estimated GFR > 60 ml/min BUN/Creatinine Ratio 11 % Glucose 125 H (65-100) mg/dL Calcium 9.0 (8.4-10.2) mg/dL Total Bilirubin 1.60 H (0.1-1.2) mg/dL AST 49 H (5-40) units/L ALT 48 (7-56) units/L Alkaline Phosphatase 160 H (35-129) units/L Total Protein 6.8 (6.3-8.2) g/dL Albumin 3.8 L (3.9-5) g/dL Albumin/Globulin Ratio 1.3 % - Medical Decision Making Sickle cell crisis with pain improvement with the ED treatment H&H stable no Signs of acute infection BP improved with clonidine without signs of hypertensive emergency 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 ED Disposition Clinical Impression: Anemia, sickle cell with crisis, HTN (hypertension) Disposition: TO HOME OR SELFCARE Is pt being admited?: No Does the pt Need Aspirin: No Condition: Stable Instructions: Hypertension (ED), Sickle Cell Crisis (ED) Additional Instructions: Continue your current meds. Follow-up with your doctor or doctor/clinic provided. Return if symptoms worsen as indicated by your discharge i nstructions. Referrals: your, posting machine operator [Other] - 3-5 Days Time of Disposition: 15:10
[2019-10-26] MEDS ORDERED: D5W/0.2% NACL 1,000 ML IV SCH (12:00)
[2019-10-26 12:01] LABS: Hematocrit 27.6 % (30.3-42.9); Hemoglobin 9.1 gm/dl (10.1-14.3); Mean Corpuscular HGB Conc 33 % (30-34); Mean Corpuscular Volume 96 fl (79-97); Platelet Count 522 K/mm3 (140-440); Red Blood Count 2.86 M/mm3 (3.65-5.03)
[2019-10-26 12:11] LABS: Red Cell Distribution Width 22.3 % (13.2-15.2)
[2019-10-26 12:16] LABS: Alanine Aminotransferase 48 units/L (7-56); Albumin 3.8 g/dL (3.9-5); BUN/Creatinine Ratio 11; Blood Urea Nitrogen 8 mg/dL (7-17); Hemolysis Index 10
[2019-10-26 13:29] LABS: Basophils % (Manual) 0 % (0.0-1.8); Large Platelets Few; Platelet Estimate Consistent w Auto; Sickle Cells 2+; Target Cells 2+; Total Cells Counted 100
[2019-10-26 14:27] VITALS: BP 167/83
== END 2019-10-26 15:30 | disposition home or self-care (01) ==
LOC: ED 10:22
DX: D57.00 Hb-SS disease with crisis, unspecified (principal); I10 Essential (primary) hypertension; D64.9 Anemia, unspecified; M19.90 Unspecified osteoarthritis, unspecified site; J45.909 Unspecified asthma, uncomplicated; Z90.49 Acquired absence of other specified parts of digestive tract; Z98.890 Other specified postprocedural states; Z79.899 Other long term (current) drug therapy; Z88.4 Allergy status to anesthetic agent
CPT/HCPCS: 36415; 80053; 85007; 85025; 85045; 96374; 96375; 96376; 99283; J1170; J1200; J1642; J1885; J2405

== ENCOUNTER 2019-11-08 09:22 | Emergency (ER) | payer MEDICAID ==
[2019-11-08] MEDS ORDERED: diphenhydrAMINE 50 MG/ML VIAL IV ONE (11:27)
[2019-11-08] MEDS ORDERED: ONDANSETRON 4 MG/2 ML INJ IV ONE (11:27)
[2019-11-08] MEDS ORDERED: HYDROmorphone 1 MG/1 ML INJ IV ONE ×4 (11:27→14:04)
--- NOTE | 2019-11-08 11:30 | Emergency Department Report ---
ED General Adult HPI - General Chief complaint: Sickle Cell Crisis Stated complaint: SICKLE CELL Time Seen by Provider: 11/08/19 11:19 Source: patient Mode of arrival: Ambulatory Limitations: No Limitations - History of Present Illness Initial comments: This is a 34-year-old female with chronic pain and sickle cell disease. She complains of vomiting this a.m. She states that she was unable to take her medicine for hypertension. She complains of her typical back and lower extremity pain consistent with sickle cell crisis. He denies recent fever or chills. She states that she had a period today which was somewhat heavy but not ongoing. She does not complain of any abdominal pain. She's had no difficulty in breathing. She denies any urinary symptoms. -: Gradual, hour(s) Location: back, lower extremity Radiation: non-radiation Quality: aching Consistency: intermittent Improves with: none Worsens with: none Associated Symptoms: denies other symptoms, nausea/vomiting Treatments Prior to Arrival: none - Related Data Home Medications Medication Instructions Recorded Confirmed Last Taken Methadone [Dolophine] 20 mg PO BID 03/19/19 10/20/19 08/18/19 Previous Rx's Medication Instructions Recorded Last Taken Type Acetaminophen [Non-Aspirin Extra 500 mg PO Q6HR PRN #30 tablet 06/02/19 08/15/19 Rx Strength] Ondansetron [Zofran ODT TAB] 4 mg PO Q8HR PRN #20 tab.rapdis 06/02/19 08/15/19 Rx Folic Acid [Folvite] 1 mg PO DAILY #30 tablet 08/23/19 Unknown Rx Hydroxyurea 500 mg PO DAILY #30 cap 08/23/19 Unknown Rx Oxycodone HCl/Acetaminophen 1 each PO Q12H PRN #6 tablet 08/23/19 Unknown Rx [Percocet 10/325 mg] amLODIPine 10 mg PO QDAY #30 tablet 08/23/19 Unknown Rx cloNIDine [Catapres] 0.2 mg PO BID #60 08/23/19 Unknown Rx lisinopriL [Zestril TAB] 40 mg PO QDAY #30 tablet 08/23/19 Unknown Rx ALBUTEROL Inhaler (OR & NICU) 2 puff IH QID PRN #1 inhalation 09/10/19 Unknown Rx [ProAir HFA Inhaler] predniSONE [Deltasone] 20 mg PO QDAY #5 tab 11/06/19 Unknown Rx Jazlyn Root [Jazlyn] 250 mg PO QID PRN #30 capsule 10/15/19 Unknown Rx Ondansetron [Zofran ODT TAB] 4 mg PO Q8HR PRN #20 tab.rapdis 10/15/19 Unknown Rx Ondansetron [Zofran Odt] 4 mg PO Q6HR #10 tab.rapdis 11/08/19 Unknown Rx Allergies Allergy/AdvReac Type Severity Reaction Status Date / Time morphine Allergy Shortness Verified 10/19/19 18:58 of Breath ED Review of Systems ROS: Stated complaint: SICKLE CELL Other details as noted in HPI Constitutional: denies: chills, fever Eyes: denies: eye pain, eye discharge, vision change ENT: denies: ear pain, throat pain Respiratory: denies: cough, shortness of breath, wheezing Cardiovascular: denies: chest pain, palpitations Endocrine: no symptoms reported Gastrointestinal: denies: abdominal pain, nausea, diarrhea Genitourinary: denies: urgency, dysuria, discharge Musculoskeletal: as per HPI, back pain. denies: joint swelling Skin: denies: rash, lesions Neurological: denies: headache, weakness, paresthesias Psychiatric: denies: anxiety, depression Hematological/Lymphatic: denies: easy bleeding, easy bruising ED Past Medical Hx - Past Medical History Previous Medical History?: Yes Hx Hypertension: Yes Hx CVA: No Hx Heart Attack/AMI: No Hx Congestive Heart Failure: No Hx Diabetes: No Hx Sickle Cell Disease: Yes Hx Arthritis: Yes Hx Asthma: Yes Hx COPD: No Hx HIV: No Additional medical history: ANEMIA, multiple port infections - Surgical History Past Surgical History?: Yes Hx Cholecystectomy: Yes Additional Surgical History: , port removed June 2014. PICC line left upper arm (11/19/2014). . - Social History Smoking Status: Never Smoker Substance Use Type: None - Medications Home Medications: Home Medications Medication Instructions Recorded Confirmed Last Taken Type Methadone [Dolophine] 20 mg PO BID 03/19/19 10/20/19 08/18/19 History Acetaminophen [Non-Aspirin Extra 500 mg PO Q6HR PRN #30 tablet 06/02/19 10/20/19 08/15/19 Rx Strength] Ondansetron [Zofran ODT TAB] 4 mg PO Q8HR PRN #20 tab.rapdis 06/02/19 10/20/19 08/15/19 Rx Folic Acid [Folvite] 1 mg PO DAILY #30 tablet 08/23/19 10/20/19 Unknown Rx Hydroxyurea 500 mg PO DAILY #30 cap 08/23/19 10/20/19 Unknown Rx Oxycodone HCl/Acetaminophen 1 each PO Q12H PRN #6 tablet 08/23/19 10/20/19 Unknown Rx [Percocet 10/325 mg] amLODIPine 10 mg PO QDAY #30 tablet 08/23/19 10/20/19 Unknown Rx cloNIDine [Catapres] 0.2 mg PO BID #60 08/23/19 10/20/19 Unknown Rx lisinopriL [Zestril TAB] 40 mg PO QDAY #30 tablet 08/23/19 10/20/19 Unknown Rx ALBUTEROL Inhaler (OR & NICU) 2 puff IH QID PRN #1 inhalation 09/10/19 10/20/19 Unknown Rx [ProAir HFA Inhaler] predniSONE [Deltasone] 20 mg PO QDAY #5 tab 09/10/19 10/20/19 Unknown Rx Jazlyn Root [Jazlyn] 250 mg PO QID PRN #30 capsule 10/15/19 10/20/19 Unknown Rx Ondansetron [Zofran ODT TAB] 4 mg PO Q8HR PRN #20 tab.rapdis 10/15/19 10/20/19 Unknown Rx Ondansetron [Zofran Odt] 4 mg PO Q6HR #10 tab.rapdis 11/08/19 Unknown Rx ED Physical Exam - General Limitations: No Limitations General appearance: alert, in no apparent distress, obese - Head Head exam: Present: atraumatic, normocephalic - Eye Eye exam: Present: normal appearance. Absent: scleral icterus - ENT ENT exam: Present: mucous membranes moist - Neck Neck exam: Present: normal inspection. Absent: tenderness, meningismus - Respiratory Respiratory exam: Present: normal lung sounds bilaterally. Absent: respiratory distress - Cardiovascular Cardiovascular Exam: Present: regular rate, normal rhythm. Absent: systolic murmur, diastolic murmur, rubs, gallop - GI/Abdominal GI/Abdominal exam: Present: soft, normal bowel sounds. Absent: distended, tenderness, guarding, rebound, rigid - Extremities Exam Extremities exam: Present: normal inspection, normal capillary refill. Absent: pedal edema, joint swelling, calf tenderness - Back Exam Back exam: Present: normal inspection. Absent: CVA tenderness (R), CVA tenderness (L), muscle spasm, paraspinal tenderness, vertebral tenderness - Neurological Exam Neurological exam: Present: alert, oriented X3, CN II-XII intact. Absent: motor sensory deficit - Psychiatric Psychiatric exam: Present: normal affect, normal mood - Skin Skin exam: Present: warm, dry, intact, normal color. Absent: rash ED Course Vital Signs 11/08/19 11/08/19 09:26 11:03 Temperature 98.5 F Pulse Rate 92 H 80 Respiratory 18 19 Rate Blood Pressure 194/95 Blood Pressure 188/88 [Left] O2 Sat by Pulse 93 96 Oximetry - Reevaluation(s) Reevaluation #1: She is given a small dose of labetalol. She was treated with analgesia and fluids. She did improve. She has a persistently high reticulocyte count and often elevated white blood cell counts. This is not unusual for her. I don't see anything further and her laboratory workup that would suggest the need to admit. Outpatient disposition is appropriate. 11/08/19 13:53 11/08/19 13:54 ED Medical Decision Making - Lab Data Result diagrams: 11/08/19 12:05 11/08/19 12:05 Laboratory Results - last 24 hr 11/08/19 11/08/19 11/08/19 12:05 12:05 12:05 WBC 14.1 H RBC 2.52 L Hgb 8.3 L Hct 24.2 L MCV 96 MCH 33 H MCHC 34 RDW 25.0 H Plt Count 394 Percent Retic 17.27 H Sodium 139 Potassium 4.4 Chloride 103.9 Carbon Dioxide 22 Anion Gap 18 BUN 12 Creatinine 0.9 Estimated GFR > 60 BUN/Creatinine Ratio 13 Glucose 103 H Calcium 9.4 Total Bilirubin 1.90 H Direct Bilirubin 0.6 H Indirect Bilirubin 1.3 AST 48 H ALT 38 Alkaline Phosphatase 165 H NT-Pro-B Natriuret Pep Total Protein 6.8 Albumin 3.5 L Albumin/Globulin Ratio 1.1 11/08/19 12:05 WBC RBC Hgb Hct MCV MCH MCHC RDW Plt Count Percent Retic Sodium Potassium Chloride Carbon Dioxide Anion Gap BUN Creatinine Estimated GFR BUN/Creatinine Ratio Glucose Calcium Total Bilirubin Direct Bilirubin Indirect Bilirubin AST ALT Alkaline Phosphatase NT-Pro-B Natriuret Pep 263.9 Total Protein Albumin Albumin/Globulin Ratio Critical care attestation.: If time is entered above; I have spent that time in minutes in the direct care of this critically ill patient, excluding procedure time. ED Disposition Clinical Impression: Anemia, sickle cell with crisis, Poorly-controlled hypertension Vomiting Qualifiers: Vomiting type: unspecified Vomiting Intractability: non-intractable Nausea presence: without nausea Qualified Code(s): R11.11 - Vomiting without nausea Disposition: DC-01 TO HOME OR SELFCARE Is pt being admited?: No Does the pt Need Aspirin: No Condition: Stable Instructions: Sickle Cell Crisis (ED), Chronic Hypertension (ED) Additional Instructions: Return any acute change or problem. Monitor blood pressure. Return any fever or chills. Follow-up with the usual under trimmer. Prescriptions: Ondansetron [Zofran Odt] 4 mg PO Q6HR #10 tab.terridis Referrals: PRIMARY CARE, [Primary Care Provider] - 3-5 Days usual, under trimmer [Other] - 2-3 Days Time of Disposition: 13:56
[2019-11-08] MEDS ORDERED: D5W/0.2% NACL 1,000 ML IV SCH (12:00)
[2019-11-08 12:14] LABS: Hematocrit 24.2 % (30.3-42.9); Hemoglobin 8.3 gm/dl (10.1-14.3); Mean Corpuscular HGB Conc 34 % (30-34); Mean Corpuscular Volume 96 fl (79-97); Platelet Count 394 K/mm3 (140-440); Red Blood Count 2.52 M/mm3 (3.65-5.03)
[2019-11-08 12:41] LABS: BUN/Creatinine Ratio 13; Blood Urea Nitrogen 12 mg/dL (7-17); Calcium 9.4 mg/dL (8.4-10.2); Hemolysis Index 15
--- NOTE | 2019-11-08 12:43 | XRay Report ---
CHEST 1 VIEW INDICATION: hypertension/UPT. COMPARISON: 10/19/2019. FINDINGS: Support devices: Left IJ chest port unchanged. Heart: Stable prominent cardiomegaly. Lungs/Pleura: No acute air space or interstitial disease. Additional findings: None. IMPRESSION: Stable cardiomegaly. Signer Name: Ej Doe MD Signed: 11/08/2019 12:38 PM Workstation Name: [id number]
[2019-11-08 12:44] LABS: Albumin 3.5 g/dL (3.9-5); Bilirubin,Direct 0.6 mg/dL (0-0.2)
[2019-11-08 13:10] LABS: Total Cells Counted 100
[2019-11-08 13:11] LABS: Basophils % (Manual) 0 % (0.0-1.8); Giant Platelets Few; Platelet Estimate Consistent w Auto; Sickle Cells 2+; Target Cells 1+
[2019-11-08 14:13] VITALS: BP 159/63
== END 2019-11-08 14:00 | disposition home or self-care (01) ==
LOC: ED 09:22
DX: D57.00 Hb-SS disease with crisis, unspecified (principal); D64.9 Anemia, unspecified; I10 Essential (primary) hypertension; R11.10 Vomiting, unspecified; Z90.49 Acquired absence of other specified parts of digestive tract; Z79.899 Other long term (current) drug therapy; Z88.5 Allergy status to narcotic agent
CPT/HCPCS: 36415; 71045; 80048; 80076; 83880; 84703; 85007; 85025; 85045; 96361; 96374; 96375; 96376; 99284; J1170; J1200; J1642; J2405

== ENCOUNTER 2019-11-11 01:07 | Emergency (ER) | payer MEDICAID ==
[2019-11-11 01:27] VITALS: BP 213/114
== END 2019-11-11 05:00 | disposition left against medical advice (07) ==
LOC: ED 01:07
DX: R07.9 Chest pain, unspecified (principal); Z53.21 Procedure and treatment not carried out due to patient leaving prior to being seen by health care provider
CPT/HCPCS: 93005; 93010

== ENCOUNTER 2019-12-02 11:33 | Emergency (ER) | payer MEDICAID ==
--- NOTE | 2019-12-02 11:45 | Event Note ---
ED Screening Note Date of service: 12/02/19 Time: 11:42 ED Screening Note: 34 y o f presents with lower back pain and bilateral lower extremity pain x yesterday no relief PMH: sickle cell, HTN, asthma This initial assessment/diagnostic orders/clinical plan/treatment(s) is/are subject to change based on patients health status, clinical progression and re- assessment by fellow clinical providers in the ED. Further treatment and workup at subsequent clinical providers discretion. Patient/guardian urged not to elope from the ED as their condition may be serious if not clinically assessed and managed. Initial orders include: cbc, retic couunt, ua main side eval
[2019-12-02] MEDS ORDERED: HYDROmorphone 2 MG/1 ML INJ IV ONE ×3 (14:46→17:08)
--- NOTE | 2019-12-02 14:49 | Emergency Department Report ---
HPI - General Chief Complaint: Pain General Time Seen by Provider: 12/02/19 14:29 - HPI HPI: 34-year-old -[place] female, who is well known to both myself and this department, presents to the emergency department with a 1-2 day history of low back pain and bilateral leg pain that is consistent with her previous sickle cell pain crisis. She denies any fever, chest pain, lower extremity swelling, vomiting, rash. She is on hydroxyurea, folic acid and Percocet that she has been taking compliantly without much relief. She also presents with hy pertension and says that she has taken all of her daily blood pressure medications except for the Catapres today. Her supervisor steno pool is Dr. Keane. No recent travel or sick contacts at home. ED Past Medical Hx - Past Medical History Hx Hypertension: Yes Hx CVA: No Hx Heart Attack/AMI: No Hx Congestive Heart Failure: No Hx Diabetes: No Hx Sickle Cell Disease: Yes Hx Arthritis: Yes Hx Asthma: Yes Hx COPD: No Hx HIV: No Additional medical history: ANEMIA, multiple port infections - Surgical History Hx Cholecystectomy: Yes Additional Surgical History: , port removed June 2014. PICC line left upper arm (11/19/2014). . - Social History Smoking Status: Never Smoker Substance Use Type: None - Medications Home Medications: Home Medications Medication Instructions Recorded Confirmed Last Taken Type Methadone [Dolophine] 20 mg PO BID 03/19/19 10/20/19 08/18/19 History Acetaminophen [Non-Aspirin Extra 500 mg PO Q6HR PRN #30 tablet 06/02/19 10/20/19 08/15/19 Rx Strength] Ondansetron [Zofran ODT TAB] 4 mg PO Q8HR PRN #20 tab.rapdis 06/02/19 10/20/19 08/15/19 Rx Folic Acid [Folvite] 1 mg PO DAILY #30 tablet 08/23/19 10/20/19 Unknown Rx Hydroxyurea 500 mg PO DAILY #30 cap 08/23/19 10/20/19 Unknown Rx Oxycodone HCl/Acetaminophen 1 each PO Q12H PRN #6 tablet 08/23/19 10/20/19 Unknown Rx [Percocet 10/325 mg] amLODIPine 10 mg PO QDAY #30 tablet 08/23/19 10/20/19 Unknown Rx cloNIDine [Catapres] 0.2 mg PO BID #60 08/23/19 10/20/19 Unknown Rx lisinopriL [Zestril TAB] 40 mg PO QDAY #30 tablet 08/23/19 10/20/19 Unknown Rx Albuterol INH(or & Nicu Only) 2 puff IH QID PRN #1 inhalation 09/10/19 10/20/19 Unknown Rx [ProAir HFA Inhaler] predniSONE [Deltasone] 20 mg PO QDAY #5 tab 09/10/19 10/20/19 Unknown Rx Jazlyn Root [Jazlyn] 250 mg PO QID PRN #30 capsule 10/15/19 10/20/19 Unknown Rx Ondansetron [Zofran ODT TAB] 4 mg PO Q8HR PRN #20 tab.rapdis 10/15/19 10/20/19 Unknown Rx Ondansetron [Zofran Odt] 4 mg PO Q6HR #10 tab.rapdis 11/08/19 Unknown Rx ED Review of Systems ROS: Stated complaint: SICKLE CELL Other details as noted in HPI Comment: All other systems reviewed and negative Constitutional: denies: chills, fever ENT: denies: ear pain, throat pain Respiratory: denies: cough, shortness of breath Cardiovascular: denies: chest pain, palpitations Gastrointestinal: denies: abdominal pain, vomiting Genitourinary: denies: dysuria, discharge Musculoskeletal: back pain, myalgia. denies: joint swelling Skin: denies: rash, lesions Neurological: denies: headache, weakness Physical Exam - Physical Exam Vital Signs: Vital Signs 12/02/19 11:37 Temperature 98.9 F Pulse Rate 89 Respiratory 16 Rate Blood Pressure 180/95 O2 Sat by Pulse 98 Oximetry Physical Exam: GENERAL: The patient is well-developed well-nourished. HEENT: Normocephalic. Atraumatic. Patient has moist mucous membranes. EYES: Extraocular motions are intact. NECK: Supple. Trachea is midline. CHEST/LUNGS: Clear to auscultation. There is no respiratory distress noted. HEART/CARDIOVASCULAR: Regular. There is no tachycardia. There is no murmur. ABDOMEN:There is no abdominal distention. SKIN:Skin is warm and dry. . NEURO: The patient is awake, alert, and oriented. The patient is cooperative. The patient has no focal neurologic deficits. Normal speech. MUSCULOSKELETAL: There is no tenderness or deformity. There is no evidence of acute injury. BACK: There is bilateral lumbar paraspinal tenderness to palpation. No midline thoracic or lumbar tenderness to palpation, step-off or deformity. ED Course Vital Signs 12/02/19 11:37 Temperature 98.9 F Pulse Rate 89 Respiratory 16 Rate Blood Pressure 180/95 O2 Sat by Pulse 98 Oximetry ED Medical Decision Making - Lab Data Result diagrams: 12/02/19 Unknown 12/02/19 Unknown - Medical Decision Making This patient is well-known to myself and this department. She presents with some low back pain that is consistent with her previous visits for sickle cell pain crisis. She denies any problems with bowel or bladder, numbness or paresthesias or any neurological deficits. No recent fall, trauma, injury. Her labs are consistent with previous visits. She has chronic elevated white blood cell count and it is at about 19,000. Hemoglobin is 8.8 consistent with her sickle cell anemia. Reticulocyte count is lower than usual, at 7. Her vital signs have been stable throughout her ED course but she does present with some hypertension. Patient was given some doses of analgesia and upon reevaluation her pain is down to 0 out of 10 and well controlled. Her back pain is bilateral paraspinal without any midline tenderness, step-off or deformity. The patient was seen ambulatory in the emergency department. She will follow up with her supervisor steno pool and has been instructed to return to the ER with any worsening of her symptoms or any acute distress. - Differential Diagnosis sickle cell pain crisis, rheumatoid arthritis, fibromyalgia, muscle spasm Critical Care Time: No Critical care attestation.: If time is entered above; I have spent that time in minutes in the direct care of this critically ill patient, excluding procedure time. ED Disposition Clinical Impression: Anemia, sickle cell with crisis, Sickle cell pain crisis Hypertension Qualifiers: Hypertension type: essential hypertension Qualified Code(s): I10 - Essential (primary) hypertension Disposition: - TO HOME OR SELFCARE Is pt being admited?: No Condition: Stable Instructions: Sickle Cell Crisis (ED), Hypertension (ED), Anemia (ED) Additional Instructions: Please follow up with your primary care physician and supervisor steno pool in the next few days. Return to the emergency Department with any worsening of your symptoms or any acute distress. Referrals: PRIMARY CARE, [Primary Care Provider] - 3-5 Days PATTIE KEANE MD [Referring] - 3-5 Days Time of Disposition: 17:40
[2019-12-02] MEDS ORDERED: ONDANSETRON 4 MG/2 ML INJ IV ONE (15:21)
[2019-12-02] MEDS ORDERED: diphenhydrAMINE 50 MG/ML VIAL IV ONE ×2 (15:21→17:09)
[2019-12-02 15:25] LABS: HCG Qualitative,Urine Negative (Negative)
[2019-12-02 15:26] LABS: Bilirubin,Urine NEG (Negative); Blood,Urine NEG (Negative); Color,Urine Yellow (Yellow); Mucus,Urine FEW /HPF
[2019-12-02 15:28] LABS: Protein,Urine >500 mg/dL (Negative)
[2019-12-02 15:40] LABS: Hematocrit 25.5 % (30.3-42.9); Hemoglobin 8.8 gm/dl (10.1-14.3); Mean Corpuscular HGB Conc 35 % (30-34); Mean Corpuscular Volume 89 fl (79-97); Platelet Count 818 K/mm3 (140-440); Red Blood Count 2.87 M/mm3 (3.65-5.03); Red Cell Distribution Width 17.2 % (13.2-15.2)
[2019-12-02 15:58] LABS: BUN/Creatinine Ratio 16; Blood Urea Nitrogen 14 mg/dL (7-17); Calcium 9.3 mg/dL (8.4-10.2); Hemolysis Index 4
[2019-12-02 16:17] LABS: Band Neutrophils # (Manual) 0.2 K/mm3; Sickle Cells 2+; Total Cells Counted 100
[2019-12-02 16:18] LABS: Giant Platelets 1+; Target Cells 1+
[2019-12-02 18:08] VITALS: BP 173/98
== END 2019-12-02 18:08 | disposition home or self-care (01) ==
LOC: ED 11:33
DX: D57.00 Hb-SS disease with crisis, unspecified (principal); D64.9 Anemia, unspecified; I10 Essential (primary) hypertension; J45.909 Unspecified asthma, uncomplicated; Z90.49 Acquired absence of other specified parts of digestive tract; Z79.899 Other long term (current) drug therapy; Z88.8 Allergy status to other drugs, medicaments and biological substances
CPT/HCPCS: 36415; 80048; 81001; 81025; 85007; 85025; 85045; 96374; 96375; 96376; 99283; J1170; J1200; J1642; J2405

== ENCOUNTER 2019-12-10 15:25 | Emergency (ER) | payer MEDICAID ==
[2019-12-10] MEDS ORDERED: SODIUM CHLORIDE 0.9% 1000 ML 1,000 ML ONE ×2 (15:30→15:31)
[2019-12-10] MEDS ORDERED: oxyCODONE 5 MG TAB PO ONE (15:51)
[2019-12-10 15:52] VITALS: BP 190/97
--- NOTE | 2019-12-10 15:53 | Emergency Department Report ---
Chief Complaint: Sickle Cell Crisis Stated Complaint: SICKLE CELL CRISIS Time Seen by Provider: 12/10/19 15:52 - HPI History of Present Illness: 34 y/o fem with hbss multiple er vitis p/w typical body pain back pain chest wall pain from crisis states weather change of seaons and and menses incite her pain crisis can take oxycodone labs ekg xr chest access port main side Vital Signs 12/10/19 15:48 Temperature 98 F Pulse Rate 82 Respiratory 18 Rate Blood Pressure 190/97 O2 Sat by Pulse 94 Oximetry - Exam Vital Signs: Vital Signs 12/10/19 15:48 Temperature 98 F Pulse Rate 82 Respiratory 18 Rate Blood Pressure 190/97 O2 Sat by Pulse 94 Oximetry MSE screening note: Focused history and physical exam performed. Due to findings the following was ordered: ED Disposition for MSE Condition: Stable
== END 2019-12-10 17:18 | disposition left against medical advice (07) ==
LOC: ED 15:25
DX: D57.819 Other sickle-cell disorders with crisis, unspecified (principal); Z88.6 Allergy status to analgesic agent
CPT/HCPCS: 99282; J7030

== ENCOUNTER 2019-12-15 11:56 | Emergency (ER) | payer MEDICAID ==
--- NOTE | 2019-12-15 12:48 | Emergency Department Report ---
Blank Doc - Documentation Documentation: 34-year-old female that presents with generalize pain with HX of sickle cell. This initial assessment/diagnostic orders/clinical plan/treatment(s) is/are subject to change based on patient's health status, clinical progression and re- assessment by fellow clinical providers in the ED. Further treatment and workup at subsequent clinical providers discretion. Patient/guardians urged not to elope from the ED as their condition may be serious if not clinically assessed and managed. Initial orders include: 1- Patient sent to MAIN ED for further evaluation and treatment 2- labs 3- UA
[2019-12-15] MEDS ORDERED: HYDROmorphone 1 MG/1 ML INJ IV ONE ×3 (15:40→19:14)
[2019-12-15] MEDS ORDERED: SODIUM CHLORIDE 0.9% 1000 ML 1,000 ML IV ONE ×2 (15:49)
[2019-12-15] MEDS: HYDROmorphone 1 MG/1 ML INJ IV ONE ×2 (15:49→16:30)
[2019-12-15] MEDS ORDERED: diphenhydrAMINE 50 MG/ML VIAL IV ONE ×2 (15:49→19:20)
[2019-12-15] MEDS ORDERED: KETOROLAC 30 MG/1 ML INJ IV ONE (15:49)
[2019-12-15] MEDS ORDERED: cloNIDine 0.2 MG TAB PO ONE (17:35)
[2019-12-15 18:19] LABS: Hematocrit 25.3 % (30.3-42.9); Hemoglobin 8.5 gm/dl (10.1-14.3); Mean Corpuscular HGB Conc 34 % (30-34); Mean Corpuscular Volume 96 fl (79-97); Platelet Count 276 K/mm3 (140-440); Red Blood Count 2.64 M/mm3 (3.65-5.03)
[2019-12-15 18:20] LABS: Red Cell Distribution Width 21.5 % (13.2-15.2)
[2019-12-15 18:36] LABS: Alanine Aminotransferase 27 units/L (7-56); Albumin 3.5 g/dL (3.9-5); BUN/Creatinine Ratio 13; Blood Urea Nitrogen 13 mg/dL (7-17); Calcium 8.6 mg/dL (8.4-10.2); Hemolysis Index 24
[2019-12-15 19:01] LABS: Basophils % (Manual) 0 % (0.0-1.8); Giant Platelets 1+; Sickle Cells 2+; Target Cells 1+; Total Cells Counted 100
[2019-12-15] MEDS ORDERED: SODIUM CHLORIDE 0.9% 1000 ML 1,000 ML ONE ×2 (19:09→19:32)
--- NOTE | 2019-12-15 19:44 | Emergency Department Report ---
ED General Adult HPI - General Stated complaint: SICKLE CELL Time Seen by Provider: 12/15/19 12:47 Source: patient Mode of arrival: Ambulatory Limitations: No Limitations - History of Present Illness Initial comments: Patient is a 34-year-old F [place] female with a past medical history of sickle cell anemia who is complaining of 2 days of lower back and bilateral lower extremity pain. Pain is 10 out of 10 and is aching in nature. She denies fevers chills cough cold congestion or trauma. Patient states the pain is typical of her sickle cell crisis and she believes that the weather is a trigger for this exacerbation. Severity scale (0 -10): 10 - Related Data Home Medications Medication Instructions Recorded Confirmed Last Taken Methadone [Dolophine] 20 mg PO BID 03/19/19 10/20/19 08/18/19 Previous Rx's Medication Instructions Recorded Last Taken Type Acetaminophen [Non-Aspirin Extra 500 mg PO Q6HR PRN #30 tablet 06/02/19 08/15/19 Rx Strength] Ondansetron [Zofran ODT TAB] 4 mg PO Q8HR PRN #20 tab.rapdis 06/02/19 08/15/19 Rx Folic Acid [Folvite] 1 mg PO DAILY #30 tablet 08/23/19 Unknown Rx Hydroxyurea 500 mg PO DAILY #30 cap 08/23/19 Unknown Rx Oxycodone HCl/Acetaminophen 1 each PO Q12H PRN #6 tablet 08/23/19 Unknown Rx [Percocet 10/325 mg] amLODIPine 10 mg PO QDAY #30 tablet 08/23/19 Unknown Rx cloNIDine [Catapres] 0.2 mg PO BID #60 08/23/19 Unknown Rx lisinopriL [Zestril TAB] 40 mg PO QDAY #30 tablet 08/23/19 Unknown Rx Albuterol INH(or & Nicu Only) 2 puff IH QID PRN #1 inhalation 09/10/19 Unknown Rx [ProAir HFA Inhaler] predniSONE [Deltasone] 20 mg PO QDAY #5 tab 09/10/19 Unknown Rx Jazlyn Root [Jazlyn] 250 mg PO QID PRN #30 capsule 10/15/19 Unknown Rx Ondansetron [Zofran ODT TAB] 4 mg PO Q8HR PRN #20 tab.rapdis 10/15/19 Unknown Rx Ondansetron [Zofran Odt] 4 mg PO Q6HR #10 tab.rapdis 11/08/19 Unknown Rx Allergies Allergy/AdvReac Type Severity Reaction Status Date / Time morphine Allergy Shortness Verified 10/19/19 18:58 of Breath ED Review of Systems ROS: Stated complaint: SICKLE CELL Other details as noted in HPI Comment: All other systems reviewed and negative ED Past Medical Hx - Past Medical History Previous Medical History?: Yes Hx Hypertension: Yes Hx CVA: No Hx Heart Attack/AMI: No Hx Congestive Heart Failure: No Hx Diabetes: No Hx Sickle Cell Disease: Yes Hx Arthritis: Yes Hx Asthma: Yes Hx COPD: No Hx HIV: No Additional medical history: ANEMIA, multiple port infections - Surgical History Past Surgical History?: Yes Hx Cholecystectomy: Yes Additional Surgical History: , port removed June 2014. PICC line left upper arm (11/19/2014). . - Social History Smoking Status: Never Smoker Substance Use Type: None - Medications Home Medications: Home Medications Medication Instructions Recorded Confirmed Last Taken Type Methadone [Dolophine] 20 mg PO BID 03/19/19 10/20/19 08/18/19 History Acetaminophen [Non-Aspirin Extra 500 mg PO Q6HR PRN #30 tablet 06/02/19 10/20/19 08/15/19 Rx Strength] Ondansetron [Zofran ODT TAB] 4 mg PO Q8HR PRN #20 tab.rapdis 06/02/19 10/20/19 08/15/19 Rx Folic Acid [Folvite] 1 mg PO DAILY #30 tablet 08/23/19 10/20/19 Unknown Rx Hydroxyurea 500 mg PO DAILY #30 cap 08/23/19 10/20/19 Unknown Rx Oxycodone HCl/Acetaminophen 1 each PO Q12H PRN #6 tablet 08/23/19 10/20/19 Unknown Rx [Percocet 10/325 mg] amLODIPine 10 mg PO QDAY #30 tablet 08/23/19 10/20/19 Unknown Rx cloNIDine [Catapres] 0.2 mg PO BID #60 08/23/19 10/20/19 Unknown Rx lisinopriL [Zestril TAB] 40 mg PO QDAY #30 tablet 08/23/19 10/20/19 Unknown Rx Albuterol INH(or & Nicu Only) 2 puff IH QID PRN #1 inhalation 09/10/19 10/20/19 Unknown Rx [ProAir HFA Inhaler] predniSONE [Deltasone] 20 mg PO QDAY #5 tab 09/10/19 10/20/19 Unknown Rx Jazlyn Root [Jazlyn] 250 mg PO QID PRN #30 capsule 10/15/19 10/20/19 Unknown Rx Ondansetron [Zofran ODT TAB] 4 mg PO Q8HR PRN #20 tab.rapdis 10/15/19 10/20/19 Unknown Rx Ondansetron [Zofran Odt] 4 mg PO Q6HR #10 tab.rapdis 11/08/19 Unknown Rx ED Physical Exam - General Limitations: No Limitations General appearance: alert, in distress - Head Head exam: Present: atraumatic, normocephalic - Eye Eye exam: Present: normal appearance, PERRL, EOMI - ENT ENT exam: Present: normal orophraynx, mucous membranes moist - Neck Neck exam: Present: normal inspection - Respiratory Respiratory exam: Present: normal lung sounds bilaterally. Absent: respiratory distress, wheezes, rales, rhonchi - Cardiovascular Cardiovascular Exam: Present: regular rate, normal rhythm, normal heart sounds. Absent: systolic murmur, diastolic murmur, rubs, gallop - GI/Abdominal GI/Abdominal exam: Present: soft, normal bowel sounds. Absent: distended, tenderness, guarding, rebound - Extremities Exam Extremities exam: Present: normal inspection - Back Exam Back exam: Present: normal inspection - Neurological Exam Neurological exam: Present: alert, oriented X3 - Psychiatric Psychiatric exam: Present: normal affect, normal mood - Skin Skin exam: Present: warm, dry, intact, normal color. Absent: rash ED Course Vital Signs 12/15/19 12/15/19 12/15/19 12:12 16:31 18:11 Temperature 98.7 F Pulse Rate 95 H 95 H Respiratory 16 Rate Blood Pressure 189/96 213/125 Blood Pressure 218/133 [Right] O2 Sat by Pulse 96 Oximetry ED Medical Decision Making - Lab Data Result diagrams: 12/15/19 Unknown 12/15/19 Unknown Lab Results 12/15/19 12/15/19 Range/Units Unknown Unknown WBC 15.7 H (4.5-11.0) K/mm3 RBC 2.64 L (3.65-5.03) M/mm3 Hgb 8.5 L (10.1-14.3) gm/dl Hct 25.3 L (30.3-42.9) % MCV 96 (79-97) fl MCH 32 (28-32) pg MCHC 34 (30-34) % RDW 21.5 H (13.2-15.2) % Plt Count 276 (140-440) K/mm3 Add Manual Diff Complete Total Counted 100 Seg Neuts % (Manual) 60.0 (40.0-70.0) % Band Neutrophils % 0 % Lymphocytes % (Manual) 29.0 (13.4-35.0) % Reactive Lymphs % (Man) 0 % Monocytes % (Manual) 7.0 (0.0-7.3) % Eosinophils % (Manual) 4.0 (0.0-4.3) % Basophils % (Manual) 0 (0.0-1.8) % Metamyelocytes % 0 % Myelocytes % 0 % Promyelocytes % 0 % Blast Cells % 0 % Nucleated RBC % 10.0 H (0.0-0.9) % Seg Neutrophils # Man 9.4 H (1.8-7.7) K/mm3 Band Neutrophils # 0.0 K/mm3 Lymphocytes # (Manual) 4.6 (1.2-5.4) K/mm3 Abs React Lymphs (Man) 0.0 K/mm3 Monocytes # (Manual) 1.1 H (0.0-0.8) K/mm3 Eosinophils # (Manual) 0.6 H (0.0-0.4) K/mm3 Basophils # (Manual) 0.0 (0.0-0.1) K/mm3 Metamyelocytes # 0.0 K/mm3 Myelocytes # 0.0 K/mm3 Promyelocytes # 0.0 K/mm3 Blast Cells # 0.0 K/mm3 WBC Morphology Not Reportable Hypersegmented Neuts Not Reportable Hyposegmented Neuts Not Reportable Hypogranular Neuts Not Reportable Smudge Cells Not Reportable Toxic Granulation Not Reportable Toxic Vacuolation Not Reportable Dohle Bodies Not Reportable Pelger-Huet Anomaly Not Reportable Ariadne Rods Not Reportable Platelet Estimate Not Reportable Clumped Platelets Not Reportable Plt Clumps, EDTA Not Reportable Large Platelets Not Reportable Giant Platelets 1+ Platelet Satelliting Not Reportable Plt Morphology Comment Not Reportable RBC Morphology Not Reportable Dimorphic RBCs Not Reportable Polychromasia 1+ Hypochromasia Not Reportable Poikilocytosis Not Reportable Anisocytosis Not Reportable Microcytosis Not Reportable Macrocytosis Not Reportable Spherocytes Not Reportable Pappenheimer Bodies Not Reportable Sickle Cells 2+ Target Cells 1+ Tear Drop Cells Not Reportable Ovalocytes Not Reportable Helmet Cells Not Reportable Walters-[place] Bodies Not Reportable [place] Rings Not Reportable [place] Cells Not Reportable Bite Cells Not Reportable Crenated Cell Not Reportable Elliptocytes Not Reportable Acanthocytes (Spur) Not Reportable Rouleaux Not Reportable Hemoglobin C Crystals Not Reportable Schistocytes Not Reportable Malaria parasites Not Reportable Percent Retic 15.90 H (0.78-2.58) % Alexis Bodies Not Reportable Hem Pathologist Commnt No Sodium 139 (137-145) mmol/L Potassium 4.0 (3.6-5.0) mmol/L Chloride 102.9 (98-107) mmol/L Carbon Dioxide 23 (22-30) mmol/L Anion Gap 17 mmol/L BUN 13 (7-17) mg/dL Creatinine 1.0 (0.7-1.2) mg/dL Estimated GFR > 60 ml/min BUN/Creatinine Ratio 13 % Glucose 102 H (65-100) mg/dL Calcium 8.6 (8.4-10.2) mg/dL Total Bilirubin 1.70 H (0.1-1.2) mg/dL AST 35 (5-40) units/L ALT 27 (7-56) units/L Alkaline Phosphatase 181 H (35-129) units/L Total Protein 6.6 (6.3-8.2) g/dL Albumin 3.5 L (3.9-5) g/dL Albumin/Globulin Ratio 1.1 % - Medical Decision Making Patient is a 34-year-old [place] female with sickle cell who is presenting with sickle cell pain crisis. Patient was given 2 L of normal saline and 2 doses of Dilaudid with Benadryl Toradol. Patient is stated that her pain is decreased to a 6 out of 10 which is tolerable for her. Patient will follow-up with her primary care physician for additional pain meds. Critical care attestation.: If time is entered above; I have spent that time in minutes in the direct care of this critically ill patient, excluding procedure time. ED Disposition Clinical Impression: Sickle cell pain crisis Disposition: DC-01 TO HOME OR SELFCARE Is pt being admited?: No Does the pt Need Aspirin: No Condition: Stable Instructions: Sickle Cell Crisis (ED) Referrals: PRIMARY CARE, [Primary Care Provider] - 3-5 Days Time of Disposition: 19:44
[2019-12-15 20:28] VITALS: BP 170/96
== END 2019-12-15 20:27 | disposition home or self-care (01) ==
LOC: ED 11:56
DX: D57.00 Hb-SS disease with crisis, unspecified (principal); I10 Essential (primary) hypertension; M19.90 Unspecified osteoarthritis, unspecified site; J45.909 Unspecified asthma, uncomplicated; D64.9 Anemia, unspecified; Z79.899 Other long term (current) drug therapy; Z98.890 Other specified postprocedural states; Z88.8 Allergy status to other drugs, medicaments and biological substances
CPT/HCPCS: 36415; 80053; 85007; 85025; 85045; 96374; 96375; 96376; 99283; J1170; J1200; J1642; J1885; J7030

== ENCOUNTER 2019-12-17 12:34 | Emergency (ER) | payer MEDICAID ==
--- NOTE | 2019-12-17 12:55 | Emergency Department Report ---
Blank Doc - Documentation Documentation: 34-year-old female that presents with chest pain with sickle cell anemia. This initial assessment/diagnostic orders/clinical plan/treatment(s) is/are subject to change based on patient's health status, clinical progression and re- assessment by fellow clinical providers in the ED. Further treatment and workup at subsequent clinical providers discretion. Patient/guardians urged not to elope from the ED as their condition may be serious if not clinically assessed and managed. Initial orders include: 1- Patient sent to MAIN ED for further evaluation and treatment 2- labs 3- UA 4- CXR
--- NOTE | 2019-12-17 13:55 | XRay Report ---
CHEST 2 VIEWS INDICATION: Chest Pain. Sickle cell crisis. COMPARISON: 11/08/2019 FINDINGS: Support devices: Stable satisfactory device positioning. Left [id number] tip is in the right atriu m. Heart: Mild cardiomegaly. Pulmonary vasculature: Increased. Lungs/pleura: No acute air space or interstitial disease. No pneumothorax. Additional findings: None. IMPRESSION: 1. Stable cardiomegaly and pulmonary venous hypertension. 2. No acute findings. Signer Name: Emory Hernandez MD Signed: 12/17/2019 1:51 PM Workstation Name: [id number]
[2019-12-17] MEDS ORDERED: SODIUM CHLORIDE 0.9% 1000 ML 1,000 ML IV ONE ×2 (14:07→15:08)
[2019-12-17] MEDS ORDERED: HYDROmorphone 1 MG/1 ML INJ IV ONE ×2 (14:07→15:07)
[2019-12-17] MEDS ORDERED: ALBUTEROL 2.5 MG/3 ML NEBU IH ONE (14:07)
[2019-12-17] MEDS ORDERED: diphenhydrAMINE 50 MG/ML VIAL IV ONE (14:07)
[2019-12-17] MEDS ORDERED: ONDANSETRON 4 MG/2 ML INJ IV ONE (14:07)
[2019-12-17] MEDS ORDERED: hydrALAZINE 20 MG/1 ML INJ IV ONE (14:08)
--- NOTE | 2019-12-17 14:08 | Emergency Department Report ---
ED General Adult HPI - General Chief complaint: Sickle Cell Crisis Stated complaint: CHEST PAIN/SSC/SOB Time Seen by Provider: 12/17/19 12:53 Source: patient Mode of arrival: Ambulatory Limitations: No Limitations - History of Present Illness Initial comments: Patient is a 34-year-old obese -[place] female who comes to the ER complaining of chest pain. She states that she has sickle cell disease. Patient states that she is been having pain for several days which is getting worse. PMH HTN asthma SCD implanted port l SCl. PSH csec choley Home meds methadone hydroxyurea norvasc clonidine lisinopril allergy to Morphine requesting dilaudid 2mg IV -: Gradual, days(s) Location: chest Consistency: constant Improves with: none Worsens with: none Associated Symptoms: denies other symptoms, chest pain Treatments Prior to Arrival: other - Related Data Home Medications Medication Instructions Recorded Confirmed Last Taken Methadone [Dolophine] 20 mg PO BID 03/19/19 10/20/19 08/18/19 Previous Rx's Medication Instructions Recorded Last Taken Type Folic Acid [Folvite] 1 mg PO DAILY #30 tablet 08/23/19 Unknown Rx Hydroxyurea 500 mg PO DAILY #30 cap 08/23/19 Unknown Rx amLODIPine 10 mg PO QDAY #30 tablet 08/23/19 Unknown Rx cloNIDine [Catapres] 0.2 mg PO BID #60 08/23/19 Unknown Rx lisinopriL [Zestril TAB] 40 mg PO QDAY #30 tablet 08/23/19 Unknown Rx Albuterol INH(or & Nicu Only) 2 puff IH QID PRN #1 inhalation 09/10/19 Unknown Rx [ProAir HFA Inhaler] Jazlyn Root [Jazlyn] 250 mg PO QID PRN #30 capsule 10/15/19 Unknown Rx Allergies Allergy/AdvReac Type Severity Reaction Status Date / Time morphine Allergy Shortness Verified 10/19/19 18:58 of Breath ED Review of Systems ROS: Stated complaint: CHEST PAIN/SSC/SOB Other details as noted in HPI Comment: All other systems reviewed and negative ED Past Medical Hx - Past Medical History Previous Medical History?: Yes Hx Hypertension: Yes Hx CVA: No Hx Heart Attack/AMI: No Hx Congestive Heart Failure: No Hx Diabetes: No Hx Deep Vein Thrombosis: No Hx Pulmonary Embolism: No Hx GERD: No Hx Liver Disease: No Hx Renal Disease: No Hx of Cancer: No Hx Sickle Cell Disease: Yes Hx Arthritis: Yes Hx Headaches / Migraines: No Hx Seizures: No Hx Kidney Stones: No Hx Psychiatric Treatment: No Hx Asthma: Yes Hx COPD: No Hx HIV: No Additional medical history: ANEMIA, multiple port infections - Surgical History Past Surgical History?: Yes Hx Cholecystectomy: Yes Additional Surgical History: , port removed June 2014. PICC line left upper arm (11/19/2014). . - Family History Family history: no significant - Social History Smoking Status: Never Smoker Substance Use Type: None - Medications Home Medications: Home Medications Medication Instructions Recorded Confirmed Last Taken Type Methadone [Dolophine] 20 mg PO BID 03/19/19 10/20/19 08/18/19 History Folic Acid [Folvite] 1 mg PO DAILY #30 tablet 08/23/19 10/20/19 Unknown Rx Hydroxyurea 500 mg PO DAILY #30 cap 08/23/19 10/20/19 Unknown Rx amLODIPine 10 mg PO QDAY #30 tablet 08/23/19 10/20/19 Unknown Rx cloNIDine [Catapres] 0.2 mg PO BID #60 08/23/19 10/20/19 Unknown Rx lisinopriL [Zestril TAB] 40 mg PO QDAY #30 tablet 08/23/19 10/20/19 Unknown Rx Albuterol INH(or & Nicu Only) 2 puff IH QID PRN #1 inhalation 09/10/19 10/20/19 Unknown Rx [ProAir HFA Inhaler] Jazlyn Root [Jazlyn] 250 mg PO QID PRN #30 capsule 10/15/19 10/20/19 Unknown Rx ED Physical Exam - General Limitations: No Limitations General appearance: alert, in no apparent distress - Head Head exam: Present: atraumatic, normocephalic - Eye Eye exam: Present: normal appearance - ENT ENT exam: Present: mucous membranes moist - Neck Neck exam: Present: normal inspection - Respiratory Respiratory exam: Present: normal lung sounds bilaterally. Absent: respiratory distress - Cardiovascular Cardiovascular Exam: Present: regular rate, normal rhythm. Absent: systolic murmur, diastolic murmur, rubs, gallop - GI/Abdominal GI/Abdominal exam: Present: soft, normal bowel sounds - Extremities Exam Extremities exam: Present: normal inspection - Back Exam Back exam: Present: normal inspection - Neurological Exam Neurological exam: Present: alert, oriented X3 - Psychiatric Psychiatric exam: Present: normal affect, normal mood - Skin Skin exam: Present: warm, dry, intact, normal color. Absent: rash ED Course Vital Signs 12/17/19 12/17/19 12/17/19 12:37 14:38 15:15 Temperature 98.8 F Pulse Rate 91 H 92 H Pulse Rate [ 110 H Anterior Bilateral Throughout] Respiratory 16 Rate Respiratory 20 Rate [Anterior Bilateral Throughout] Blood Pressure 211/116 215/103 O2 Sat by Pulse 99 Oximetry - Reevaluation(s) Reevaluation #1: 12/17/19 17:31 bp trending down during stay ED Medical Decision Making - Lab Data Result diagrams: 12/17/19 14:20 12/17/19 14:20 - EKG Data -: EKG Interpreted by Ia EKG shows normal: sinus rhythm Rate: normal - EKG Data Interpretation: no acute changes - Radiology Data Radiology results: report reviewed, image reviewed - Medical Decision Making Labs 12/17/19 12/17/19 12/17/19 14:20 14:20 14:20 WBC 19.7 H RBC 2.76 L Hgb 8.7 L Hct 26.3 L MCV 95 MCH 32 MCHC 33 RDW 21.6 H Plt Count 291 Add Manual Diff Complete Total Counted 100 Seg Neuts % (Manual) 80.0 H Band Neutrophils % 0 Lymphocytes % (Manual) 10.0 L Reactive Lymphs % (Man) 0 Monocytes % (Manual) 6.0 Eosinophils % (Manual) 2.0 Basophils % (Manual) 1.0 Metamyelocytes % 1.0 Myelocytes % 0 Promyelocytes % 0 Blast Cells % 0 Nucleated RBC % 25.0 H Seg Neutrophils # Man 0.0 L Band Neutrophils # 0.0 Lymphocytes # (Manual) 0.0 L Abs React Lymphs (Man) 0.0 Monocytes # (Manual) 0.0 Eosinophils # (Manual) 0.0 Basophils # (Manual) 0.0 Metamyelocytes # 0.0 Myelocytes # 0.0 Promyelocytes # 0.0 Blast Cells # 0.0 WBC Morphology Not Reportable Hypersegmented Neuts Not Reportable Hyposegmented Neuts Not Reportable Hypogranular Neuts Not Reportable Smudge Cells Not Reportable Toxic Granulation Not Reportable Toxic Vacuolation Not Reportable Dohle Bodies Not Reportable Pelger-Huet Anomaly Not Reportable Ariadne Rods Not Reportable Platelet Estimate Consistent w auto Clumped Platelets Not Reportable Plt Clumps, EDTA Not Reportable Large Platelets 1+ Giant Platelets Not Reportable Platelet Satelliting Not Reportable Plt Morphology Comment Not Reportable RBC Morphology Not Reportable Dimorphic RBCs Not Reportable Polychromasia 1+ Hypochromasia Not Reportable Poikilocytosis Not Reportable Anisocytosis 2+ Microcytosis Not Reportable Macrocytosis Not Reportable Spherocytes Not Reportable Pappenheimer Bodies Not Reportable Sickle Cells 1+ Target Cells Few Tear Drop Cells Not Reportable Ovalocytes Not Reportable Helmet Cells Not Reportable Walters-[place] Bodies Not Reportable [employer] [place] Rings Not Reportable [place] Cells Not Reportable Bite Cells Not Reportable Crenated Cell Not Reportable Elliptocytes Not Reportable Acanthocytes (Spur) Not Reportable Rouleaux Not Reportable Hemoglobin C Crystals Not Reportable Schistocytes Not Reportable Malaria parasites Not Reportable Percent Retic 16.99 H Alexis Bodies Not Reportable Hem Pathologist Commnt No PT 13.5 INR 1.02 APTT 50.7 H Sodium 142 Potassium 3.7 Chloride 105.5 Carbon Dioxide 21 L Anion Gap 19 BUN 10 Creatinine 0.9 Estimated GFR > 60 BUN/Creatinine Ratio 11 Glucose 92 Calcium 9.0 Total Bilirubin 2.40 H AST 34 ALT 27 Alkaline Phosphatase 187 H Troponin T < 0.010 Total Protein 6.3 Albumin 3.8 L Albumin/Globulin Ratio 1.5 Vital Signs 12/17/19 12/17/19 12/17/19 12:37 14:38 15:15 Temperature 98.8 F Pulse Rate 91 H 92 H Pulse Rate [ 110 H Anterior Bilateral Throughout] Respiratory 16 Rate Respiratory 20 Rate [Anterior Bilateral Throughout] Blood Pressure 211/116 215/103 O2 Sat by Pulse 99 Oximetry pt well known to us here often see emr drug seeking behavior retic high medicated x 3 with dilaudid 2L NS IV hydral for bp- states she is taking her bp meds ambulatory non ill non toxic no fever taking po offered admit for pain; pt declined dc home with dc poc and pcp follow up - Differential Diagnosis ro scc Critical care attestation.: If time is entered above; I have spent that time in minutes in the direct care of this critically ill patient, excluding procedure time. ED Disposition Clinical Impression: Anemia, sickle cell with crisis, Sickle cell pain crisis, Poorly-controlled hypertension, Drug noncompliance Disposition: DC-01 TO HOME OR SELFCARE Is pt being admited?: No Does the pt Need Aspirin: No Condition: Stable Additional Instructions: CONTINUE HOME MEDS STAY WELL HYDRATED SEE PCP AND HEMATOLOGY MD HECTOR REFERRAL BELOW TO LOCAL PCP ROUTINE AND DIET PER ROUTINE Referrals: SHAYE ESPINOZA MD [Staff Physician] - 3-5 Days Time of Disposition: 17:01
[2019-12-17 14:29] LABS: Hematocrit 26.3 % (30.3-42.9); Hemoglobin 8.7 gm/dl (10.1-14.3); Mean Corpuscular HGB Conc 33 % (30-34); Mean Corpuscular Volume 95 fl (79-97); Platelet Count 291 K/mm3 (140-440); Red Blood Count 2.76 M/mm3 (3.65-5.03)
[2019-12-17 14:34] LABS: Red Cell Distribution Width 21.6 % (13.2-15.2)
[2019-12-17 14:38] LABS: INR 1.02 (0.87-1.13)
[2019-12-17 14:41] LABS: Partial Thromboplastin Time 50.7 Sec. (24.2-36.6)
[2019-12-17 15:21] LABS: Total Cells Counted 100
[2019-12-17 15:22] LABS: Sickle Cells 1+
[2019-12-17 15:24] LABS: Anisocytosis 2+; Target Cells Few
[2019-12-17 15:27] LABS: Alanine Aminotransferase 27 units/L (7-56); Albumin 3.8 g/dL (3.9-5); BUN/Creatinine Ratio 11; Blood Urea Nitrogen 10 mg/dL (7-17); Hemolysis Index 12
[2019-12-17 15:28] LABS: Large Platelets 1+; Platelet Estimate Consistent w Auto
[2019-12-17] MEDS ORDERED: HYDROmorphone 2 MG/1 ML INJ IV ONE (16:09)
[2019-12-17] MEDS ORDERED: diphenhydrAMINE 50 MG/ML VIAL ONE (16:24)
[2019-12-17 16:59] LABS: Bacteria,Urine 1+ /HPF (Negative); Bilirubin,Urine NEG (Negative); Blood,Urine SM (Negative); Color,Urine Yellow (Yellow); Urobilinogen,Urine < 2.0 mg/dL (<2.0)
[2019-12-17 17:08] LABS: HCG Qualitative,Urine Negative (Negative)
[2019-12-17 17:35] VITALS: BP 189/102
== END 2019-12-17 17:25 | disposition home or self-care (01) ==
LOC: ED 12:34
DX: D57.00 Hb-SS disease with crisis, unspecified (principal); I10 Essential (primary) hypertension; J45.909 Unspecified asthma, uncomplicated; M19.90 Unspecified osteoarthritis, unspecified site; D64.9 Anemia, unspecified; Z90.49 Acquired absence of other specified parts of digestive tract; Z79.899 Other long term (current) drug therapy; Z88.6 Allergy status to analgesic agent; Z98.890 Other specified postprocedural states; Z91.14 Patient's other noncompliance with medication regimen
CPT/HCPCS: 36415; 71046; 80053; 81001; 81025; 84484; 85007; 85025; 85045; 85610; 85730; 93005; 93010; 94640; 96374; 96375; 96376; 99284; J0360; J1170; J1200; J1642; J2405; J7030; 94644

== ENCOUNTER 2019-12-28 11:23 | Emergency (ER) | payer MEDICAID ==
[2019-12-28] MEDS ORDERED: KETOROLAC 30 MG/1 ML INJ IV ONE (13:44)
[2019-12-28] MEDS ORDERED: HYDROmorphone 1 MG/1 ML INJ IV ONE (13:44)
[2019-12-28] MEDS ORDERED: ONDANSETRON 4 MG/2 ML INJ IV ONE (13:44)
[2019-12-28] MEDS ORDERED: SODIUM CHLORIDE 0.9% 1000 ML 1,000 ML IV ONE ×2 (13:44→13:45)
[2019-12-28] MEDS ORDERED: diphenhydrAMINE 50 MG/ML VIAL IV ONE (13:45)
[2019-12-28 14:51] LABS: Basophils # (Auto) 0.2 K/mm3 (0.0-0.1); Basophils % (Auto) 1.9 % (0.0-1.8); Eosinophils # (Auto) 0.9 K/mm3 (0.0-0.4); Eosinophils % (Auto) 7.6 % (0.0-4.3); Hematocrit 30.2 % (30.3-42.9); Hemoglobin 10.1 gm/dl (10.1-14.3); Lymphocytes # (Auto) 3.3 K/mm3 (1.2-5.4); Lymphocytes % (Auto) 26.4 % (13.4-35.0); Mean Corpuscular HGB Conc 34 % (30-34); Mean Corpuscular Volume 91 fl (79-97); Monocytes # (Auto) 1.3 K/mm3 (0.0-0.8); Monocytes % (Auto) 10.5 % (0.0-7.3); Platelet Count 504 K/mm3 (140-440); Red Blood Count 3.31 M/mm3 (3.65-5.03)
[2019-12-28 14:55] LABS: Red Cell Distribution Width 20.4 % (13.2-15.2)
[2019-12-28 15:00] LABS: BUN/Creatinine Ratio 11; Blood Urea Nitrogen 13 mg/dL (7-17); Calcium 9.3 mg/dL (8.4-10.2); Hemolysis Index 5
[2019-12-28 15:22] VITALS: BP 171/82
[2019-12-28] MEDS ORDERED: HYDROmorphone 2 MG/1 ML INJ IV ONE (15:36)
[2019-12-28] MEDS ORDERED: oxyCODONE /ACETAMINOPHEN 5-325MG TAB PO ONE (16:42)
--- NOTE | 2019-12-28 17:13 | Emergency Department Report ---
ED General Adult HPI - General Chief complaint: Sickle Cell Crisis Stated complaint: SICKLE CELL CRISIS Time Seen by Provider: 12/28/19 13:28 Source: patient Mode of arrival: Ambulatory Limitations: No Limitations - History of Present Illness Initial comments: Patient has a history of sickle cell anemia. Well-known to our department is been here numerous times. Patient complaining of lower back pain as well as pain in her upper legs. Patient denies nausea vomiting fevers chills cough cold or congestion at this time. Patient states pain is 10 out of 10 in severity. Severity scale (0 -10): 5 - Related Data Home Medications Medication Instructions Recorded Confirmed Last Taken Methadone [Dolophine] 20 mg PO BID 03/19/19 10/20/19 08/18/19 Previous Rx's Medication Instructions Recorded Last Taken Type Folic Acid [Folvite] 1 mg PO DAILY #30 tablet 08/23/19 Unknown Rx Hydroxyurea 500 mg PO DAILY #30 cap 08/23/19 Unknown Rx amLODIPine 10 mg PO QDAY #30 tablet 08/23/19 Unknown Rx cloNIDine [Catapres] 0.2 mg PO BID #60 08/23/19 Unknown Rx lisinopriL [Zestril TAB] 40 mg PO QDAY #30 tablet 08/23/19 Unknown Rx Albuterol INH(or & Nicu Only) 2 puff IH QID PRN #1 inhalation 09/10/19 Unknown Rx [ProAir HFA Inhaler] Jazlyn Root [Jazlyn] 250 mg PO QID PRN #30 capsule 10/15/19 Unknown Rx Allergies Allergy/AdvReac Type Severity Reaction Status Date / Time morphine Allergy Shortness Verified 10/19/19 18:58 of Breath ED Review of Systems ROS: Stated complaint: SICKLE CELL CRISIS Other details as noted in HPI Comment: All other systems reviewed and negative ED Past Medical Hx - Past Medical History Previous Medical History?: Yes Hx Hypertension: Yes Hx CVA: No Hx Heart Attack/AMI: No Hx Congestive Heart Failure: No Hx Diabetes: No Hx Deep Vein Thrombosis: No Hx Pulmonary Embolism: No Hx GERD: No Hx Liver Disease: No Hx Renal Disease: No Hx Sickle Cell Disease: Yes Hx Arthritis: Yes Hx Headaches / Migraines: No Hx Seizures: No Hx Kidney Stones: No Hx Psychiatric Treatment: No Hx Asthma: Yes Hx COPD: No Hx HIV: No Additional medical history: ANEMIA, multiple port infections - Surgical History Past Surgical History?: Yes Hx Cholecystectomy: Yes Additional Surgical History: , port removed June 2014. PICC line left upper arm (11/19/2014). . - Social History Smoking Status: Never Smoker Substance Use Type: None - Medications Home Medications: Home Medications Medication Instructions Recorded Confirmed Last Taken Type Methadone [Dolophine] 20 mg PO BID 03/19/19 10/20/19 08/18/19 History Folic Acid [Folvite] 1 mg PO DAILY #30 tablet 08/23/19 10/20/19 Unknown Rx Hydroxyurea 500 mg PO DAILY #30 cap 08/23/19 10/20/19 Unknown Rx amLODIPine 10 mg PO QDAY #30 tablet 08/23/19 10/20/19 Unknown Rx cloNIDine [Catapres] 0.2 mg PO BID #60 08/23/19 10/20/19 Unknown Rx lisinopriL [Zestril TAB] 40 mg PO QDAY #30 tablet 08/23/19 10/20/19 Unknown Rx Albuterol INH(or & Nicu Only) 2 puff IH QID PRN #1 inhalation 09/10/19 10/20/19 Unknown Rx [ProAir HFA Inhaler] Jazlyn Root [Jazlyn] 250 mg PO QID PRN #30 capsule 10/15/19 10/20/19 Unknown Rx ED Physical Exam - General Limitations: No Limitations General appearance: alert, in no apparent distress - Head Head exam: Present: atraumatic, normocephalic - Eye Eye exam: Present: normal appearance - ENT ENT exam: Present: mucous membranes moist - Neck Neck exam: Present: normal inspection - Respiratory Respiratory exam: Present: normal lung sounds bilaterally. Absent: respiratory distress, wheezes, rales, rhonchi - Cardiovascular Cardiovascular Exam: Present: regular rate, normal rhythm, normal heart sounds. Absent: systolic murmur, diastolic murmur, rubs, gallop - GI/Abdominal GI/Abdominal exam: Present: soft, normal bowel sounds. Absent: distended, tenderness, guarding, rebound - Extremities Exam Extremities exam: Present: normal inspection - Back Exam Back exam: Present: normal inspection - Neurological Exam Neurological exam: Present: alert, oriented X3 - Psychiatric Psychiatric exam: Present: normal affect, normal mood - Skin Skin exam: Present: warm, dry, intact, normal color. Absent: rash ED Course Vital Signs 12/28/19 14:53 Pulse Rate 81 Respiratory 16 Rate Blood Pressure 171/82 [Left] O2 Sat by Pulse 96 Oximetry ED Medical Decision Making - Lab Data Result diagrams: 12/28/19 14:30 12/28/19 14:30 Lab Results 12/28/19 12/28/19 Range/Units 14:30 14:30 WBC 12.4 H (4.5-11.0) K/mm3 RBC 3.31 L (3.65-5.03) M/mm3 Hgb 10.1 (10.1-14.3) gm/dl Hct 30.2 L (30.3-42.9) % MCV 91 (79-97) fl MCH 31 (28-32) pg MCHC 34 (30-34) % RDW 20.4 H (13.2-15.2) % Plt Count 504 H (140-440) K/mm3 Lymph % (Auto) 26.4 (13.4-35.0) % [place] % (Auto) 10.5 H (0.0-7.3) % Eos % (Auto) 7.6 H (0.0-4.3) % Baso % (Auto) 1.9 H (0.0-1.8) % Lymph # 3.3 (1.2-5.4) K/mm3 Marathon # 1.3 H (0.0-0.8) K/mm3 Eos # 0.9 H (0.0-0.4) K/mm3 Baso # 0.2 H (0.0-0.1) K/mm3 Seg Neutrophils % 53.6 (40.0-70.0) % Seg Neutrophils # 6.6 (1.8-7.7) K/mm3 Sodium 138 (137-145) mmol/L Potassium 4.3 (3.6-5.0) mmol/L Chloride 99.8 (98-107) mmol/L Carbon Dioxide 23 (22-30) mmol/L Anion Gap 20 mmol/L BUN 13 (7-17) mg/dL Creatinine 1.2 (0.7-1.2) mg/dL Estimated GFR > 60 ml/min BUN/Creatinine Ratio 11 % Glucose 107 H (65-100) mg/dL Calcium 9.3 (8.4-10.2) mg/dL - Medical Decision Making Patient was hydrated given medication for symptomatic relief. Patient at the time of disposition was still asking for pain management however patient was noted to be comfortable in her room when she did not know that she was being watched. Patient will be discharged home. Critical care attestation.: If time is entered above; I have spent that time in minutes in the direct care of this critically ill patient, excluding procedure time. ED Disposition Clinical Impression: Anemia, sickle cell with crisis Disposition: DC- TO HOME OR SELFCARE Is pt being admited?: No Does the pt Need Aspirin: No Condition: Stable Referrals: PRIMARY CARE, [Primary Care Provider] - 3-5 Days Time of Disposition: 17:12
== END 2019-12-28 17:28 | disposition home or self-care (01) ==
LOC: ED 11:23
DX: D57.00 Hb-SS disease with crisis, unspecified (principal); I10 Essential (primary) hypertension; M19.90 Unspecified osteoarthritis, unspecified site; J45.909 Unspecified asthma, uncomplicated; Z90.49 Acquired absence of other specified parts of digestive tract; Z98.890 Other specified postprocedural states; Z79.899 Other long term (current) drug therapy; Z88.6 Allergy status to analgesic agent
CPT/HCPCS: 36415; 80048; 85025; 96374; 96375; 96376; 99283; J1170; J1200; J1642; J1885; J2405; J7030

== ENCOUNTER 2020-01-09 15:21 | Emergency (ER) | payer MEDICAID ==
--- NOTE | 2020-01-09 15:46 | Event Note ---
ED Screening Note Date of service: 01/09/20 Time: 15:43 ED Screening Note: This is a 34 y.o. F. that presents with generalized pain for 1 day. Reports pain worse in BLE. PMH of sickle cell and HTN. Denies CP, SOB, abdominal pain, or chest pain This initial assessment/diagnostic orders/clinical plan/treatment(s) is/are subject to change based on patients health status, clinical progression and re- assessment by fellow clinical providers in the ED. Further treatment and workup at subsequent clinical providers discretion. Patient/guardian urged not to elope from the ED as their condition may be serious if not clinically assessed and managed. Initial orders include: Labs Main ED
[2020-01-09] MEDS ORDERED: HYDROmorphone 2 MG/1 ML INJ IV ONE ×3 (18:16→20:23)
--- NOTE | 2020-01-09 18:17 | Emergency Department Report ---
ED General Adult HPI - General Chief complaint: Sickle Cell Crisis Stated complaint: SICKLE CELL CRISIS Time Seen by Provider: 01/09/20 15:42 Source: patient, RN notes reviewed Mode of arrival: Ambulatory Limitations: No Limitations - History of Present Illness Initial comments: Hematology: Dr. Keane The patient is a 34-year-old morbidly obese female, with a history of hypertension, sickle cell, multiple ER visits for sickle cell pain, presenting to the ER with her typical sickle cell crisis pain, including throbbing aching pain in her back, extremities, dry cough, currently on her menstruation. Her pain is sharp, throbbing, does not radiate anywhere, increases with palpation and range of motion, decreases with rest and typically with hydromorphone. Positive sore throat, positive cough, no fever, no irritative or obstructive urinary symptoms, denies nausea, vomiting and diarrhea. -: Sudden Location: back, left, right, upper extremity, lower extremity Quality: other Consistency: other Improves with: other Worsens with: other Associated Symptoms: other - Related Data Home Medications Medication Instructions Recorded Confirmed Last Taken Methadone [Dolophine] 20 mg PO BID 03/19/19 10/20/19 08/18/19 Previous Rx's Medication Instructions Recorded Last Taken Type Folic Acid [Folvite] 1 mg PO DAILY #30 tablet 08/23/19 Unknown Rx Hydroxyurea 500 mg PO DAILY #30 cap 08/23/19 Unknown Rx amLODIPine 10 mg PO QDAY #30 tablet 08/23/19 Unknown Rx cloNIDine [Catapres] 0.2 mg PO BID #60 08/23/19 Unknown Rx lisinopriL [Zestril TAB] 40 mg PO QDAY #30 tablet 08/23/19 Unknown Rx Albuterol INH(or & Nicu Only) 2 puff IH QID PRN #1 inhalation 09/10/19 Unknown Rx [ProAir HFA Inhaler] Jazlyn Root [Jazlyn] 250 mg PO QID PRN #30 capsule 10/15/19 Unknown Rx Allergies Allergy/AdvReac Type Severity Reaction Status Date / Time morphine Allergy Shortness Verified 10/19/19 18:58 of Breath ED Review of Systems ROS: Stated complaint: SICKLE CELL CRISIS Other details as noted in HPI Constitutional: malaise Eyes: denies: eye discharge ENT: congestion Respiratory: cough Cardiovascular: denies: syncope Gastrointestinal: denies: vomiting Genitourinary: denies: dysuria Musculoskeletal: back pain, arthralgia, myalgia Neurological: weakness Hematological/Lymphatic: denies: easy bleeding ED Past Medical Hx - Past Medical History Previous Medical History?: Yes Hx Hypertension: Yes Hx CVA: No Hx Heart Attack/AMI: No Hx Congestive Heart Failure: No Hx Diabetes: No Hx Deep Vein Thrombosis: No Hx Pulmonary Embolism: No Hx GERD: No Hx Liver Disease: No Hx Renal Disease: No Hx Sickle Cell Disease: Yes Hx Arthritis: Yes Hx Headaches / Migraines: No Hx Seizures: No Hx Kidney Stones: No Hx Psychiatric Treatment: No Hx Asthma: Yes Hx COPD: No Hx HIV: No Additional medical history: ANEMIA, multiple port infections - Surgical History Past Surgical History?: Yes Hx Cholecystectomy: Yes Additional Surgical History: , port removed June 2014. PICC line left upper arm (11/19/2014). . - Social History Smoking Status: Never Smoker Substance Use Type: None - Medications Home Medications: Home Medications Medication Instructions Recorded Confirmed Last Taken Type Methadone [Dolophine] 20 mg PO BID 03/19/19 10/20/19 08/18/19 History Folic Acid [Folvite] 1 mg PO DAILY #30 tablet 08/23/19 10/20/19 Unknown Rx Hydroxyurea 500 mg PO DAILY #30 cap 08/23/19 10/20/19 Unknown Rx amLODIPine 10 mg PO QDAY #30 tablet 08/23/19 10/20/19 Unknown Rx cloNIDine [Catapres] 0.2 mg PO BID #60 08/23/19 10/20/19 Unknown Rx lisinopriL [Zestril TAB] 40 mg PO QDAY #30 tablet 08/23/19 10/20/19 Unknown Rx Albuterol INH(or & Nicu Only) 2 puff IH QID PRN #1 inhalation 09/10/19 10/20/19 Unknown Rx [ProAir HFA Inhaler] Jazlyn Root [Jazlyn] 250 mg PO QID PRN #30 capsule 10/15/19 10/20/19 Unknown Rx ED Physical Exam - General Limitations: No Limitations General appearance: alert, anxious, in distress, obese, other (Patient noted to be talking and playing myrna cellular phone) - Head Head exam: Present: atraumatic, normocephalic - Eye Eye exam: Present: normal appearance - ENT ENT exam: Present: normal exam, normal orophraynx, mucous membranes moist, normal external ear exam - Neck Neck exam: Present: normal inspection, full ROM. Absent: tenderness, meningismus - Respiratory Respiratory exam: Present: normal lung sounds bilaterally. Absent: respiratory distress - Cardiovascular Cardiovascular Exam: Present: regular rate, normal rhythm, normal heart sounds. Absent: bradycardia, tachycardia, irregular rhythm, systolic murmur, diastolic murmur, rubs, gallop - GI/Abdominal GI/Abdominal exam: Present: soft. Absent: distended, tenderness, guarding, rebound, rigid, pulsatile mass - Extremities Exam Extremities exam: Present: normal inspection, full ROM, tenderness, other (2+ pulses noted in the bilateral upper and lower extremity. The muscular compartments are soft. There is no palpable cord, and there is mild upper extremity tenderness, without redness, pus or streaking, and there is mild right lower extremity/left lower extremity tenderness, without redness, pus or streaking). Absent: calf tenderness - Back Exam Back exam: Present: normal inspection, tenderness. Absent: CVA tenderness (R), CVA tenderness (L), vertebral tenderness - Neurological Exam Neurological exam: Present: alert, other (There is no facial droop. The tongue is midline. Extraocular movements are intact bilaterally. There is 5 out of 5 strength in bilateral upper and lower extremities. Sensation is intact to light touch bilateral upper and lower extremities. There is a normal gait.). Absent: motor sensory deficit - Psychiatric Psychiatric exam: Present: anxious - Skin Skin exam: Present: warm, dry, intact, normal color. Absent: rash ED Course Vital Signs 01/09/20 01/09/20 01/09/20 15:41 18:30 19:13 Temperature 98.1 F Pulse Rate 84 80 80 Respiratory 24 18 Rate Blood Pressure 228/124 200/65 Blood Pressure 179/80 [Right] O2 Sat by Pulse 98 100 Oximetry 01/09/20 01/09/20 01/09/20 19:30 19:31 20:01 Temperature 98.2 F Pulse Rate 79 75 73 Respiratory 24 22 16 Rate Blood Pressure 164/81 171/77 Blood Pressure 177/84 [Right] O2 Sat by Pulse 98 91 Oximetry 01/09/20 20:31 Temperature Pulse Rate 75 Respiratory 19 Rate Blood Pressure 163/81 Blood Pressure [Right] O2 Sat by Pulse 94 Oximetry - Reevaluation(s) Reevaluation #1: 01/09/20 18:37 Differential diagnosis, including but not limited to: Chronic hypertension, sickle cell pain, sickle cell crisis, pneumonia, bronchitis Assessment and plan: 34-year-old female whom I have evaluated multiple times in the past, with chronic hypertension, and acute on chronic sickle cell pain. She is afebrile with reassuring vital signs with the exception of chronic hypertension. Tachypnea may be secondary to pain as well. We will access port, give fluids, and treat aggressively with hydromorphone. X-ray the chest will be ordered. The patient states that she is not . Her presentation today is quite similar to her prior ER presentations. Reevaluation #2: 01/09/20 21:24 Patient reassessed multiple times. Blood pressure improved. She endorses readiness for discharge. She can follow-up with her outpatient strip cleaner for controlled substance prescriptions ED Medical Decision Making - Lab Data Vital Signs 01/09/20 15:41 Temperature 98.1 F Pulse Rate 84 Respiratory 24 Rate Blood Pressure 228/124 O2 Sat by Pulse 98 Oximetry - Radiology Data Radiology results: report reviewed, image reviewed CHEST 1 VIEW INDICATION / CLINICAL INFORMATION: cough hbss crisis. COMPARISON: 12/17/2019 FINDINGS: SUPPORT DEVICES: Stable, satisfactory device positioning HEART / MEDIASTINUM: Stable cardiomegaly and pulmonary venous hypertension. LUNGS / PLEURA: No significant pulmonary or pleural abnormality. No pneumothorax. ADDITIONAL FINDINGS: No significant additional findings. IM PRESSION: 1. Cardiomegaly and pulmonary venous hypertension are unchanged. Signer Name: Ochoa Nolan MD Signed: 01/09/2020 5:49 PM Workstation Name: [id number] Critical care attestation.: If time is entered above; I have spent that time in minutes in the direct care of this critically ill patient, excluding procedure time. ED Disposition Clinical Impression: Sickle cell pain crisis, Hypertension Disposition: DC-01 TO HOME OR SELFCARE Is pt being admited?: No Does the pt Need Aspirin: No Condition: Stable Additional Instructions: Continue outpatient medications. Follow-up with your strip cleaner or primary care doctor within the next 2 weeks. Please return to the emergency room right away with new, worsened or different symptoms, or symptoms not present on the initial emergency room evaluation. Patient was found to have elevated blood pressure today. She should take her outpatient blood pressure medications, and be mindful of long-term complications of high blood pressure, which include s troke, heart attack, disability, paralysis, loss of quality of life. Referrals: SEMAJ FLYNN DO [Staff Physician] - 3-5 Days PATTIE KEANE MD [Primary Care Provider] - 3-5 Days
[2020-01-09] MEDS ORDERED: ONDANSETRON 4 MG/2 ML INJ ONE (18:53)
--- NOTE | 2020-01-09 18:54 | XRay Report ---
CHEST 1 VIEW INDICATION / CLINICAL INFORMATION: cough hbss crisis. COMPARISON: 12/17/2019 FINDINGS: SUPPORT DEVICES: Stable, satisfactory device positioning HEART / MEDIASTINUM: Stable cardiomegaly and pulmonary venous hypertension. LUNGS / PLEURA: No significant pulmonary or pleural abnormality. No pneumothorax. ADDITIONAL FINDINGS: No significant additional findings. IMPRESSION: 1. Cardiomegaly and pulmonary venous hypertension are unchanged. Signer Name: Ochoa Nolan MD Signed: 01/09/2020 6:49 PM Workstation Name: [id number]
[2020-01-09] MEDS ORDERED: D5W/0.45% NACL 1,000 ML IV SCH (19:00)
[2020-01-09 20:41] VITALS: BP 163/81
== END 2020-01-09 21:35 | disposition home or self-care (01) ==
LOC: ED 15:21
DX: D57.819 Other sickle-cell disorders with crisis, unspecified (principal); I10 Essential (primary) hypertension; M19.90 Unspecified osteoarthritis, unspecified site; J45.909 Unspecified asthma, uncomplicated; Z86.2 Personal history of diseases of the blood and blood-forming organs and certain disorders involving the immune mechanism; Z90.49 Acquired absence of other specified parts of digestive tract; Z98.890 Other specified postprocedural states; Z79.899 Other long term (current) drug therapy; Z88.6 Allergy status to analgesic agent
CPT/HCPCS: 71045; 96374; 96375; 96376; 99284; J1170; J1642; J2405

== ENCOUNTER 2020-01-13 10:39 | Emergency (ER) | payer MEDICAID ==
[2020-01-13] MEDS ORDERED: HYDROmorphone 2 MG/1 ML INJ IV ONE ×3 (14:54→18:36)
[2020-01-13] MEDS ORDERED: ONDANSETRON 4 MG/2 ML INJ IV ONE (14:54)
[2020-01-13] MEDS ORDERED: diphenhydrAMINE 50 MG/ML VIAL IV ONE ×2 (14:54→18:36)
--- NOTE | 2020-01-13 14:56 | Emergency Department Report ---
HPI - General Chief Complaint: Sickle Cell Crisis Time Seen by Provider: 01/13/20 14:35 - HPI HPI: 34-year-old -Swiss female presents to the emergency department with the complaints of pain to the back and legs that is consistent with a sickle c ell pain crisis. Patient also complains of some shortness of breath and has a history of asthma. She says that she has been using her albuterol inhaler without much relief. She denies any fever, chest pain, lower extremity swelling but did have some nausea and vomiting earlier in the day. The patient follows with Dr. Keane for hematology. She has been taking her methadone and Percocet at home for her symptoms without much relief. This patient is well-known to both myself and this facility. No recent travel or sick contacts at home. ED Past Medical Hx - Past Medical History Previous Medical History?: Yes Hx Hypertension: Yes Hx CVA: No Hx Heart Attack/AMI: No Hx Congestive Heart Failure: No Hx Diabetes: No Hx Deep Vein Thrombosis: No Hx Pulmonary Embolism: No Hx GERD: No Hx Liver Disease: No Hx Renal Disease: No Hx Sickle Cell Disease: Yes Hx Arthritis: Yes Hx Headaches / Migraines: No Hx Seizures: No Hx Kidney Stones: No Hx Psychiatric Treatment: No Hx Asthma: Yes Hx COPD: No Hx HIV: No Additional medical history: ANEMIA, multiple port infections - Surgical History Past Surgical History?: Yes Hx Cholecystectomy: Yes Additional Surgical History: , port removed June 2014. PICC line left upper arm (11/19/2014). . - Social History Smoking Status: Never Smoker Substance Use Type: None - Medications Home Medications: Home Medications Medication Instructions Recorded Confirmed Last Taken Type Methadone [Dolophine] 20 mg PO BID 03/19/19 10/20/19 08/18/19 History Folic Acid [Folvite] 1 mg PO DAILY #30 tablet 08/23/19 10/20/19 Unknown Rx Hydroxyurea 500 mg PO DAILY #30 cap 08/23/19 10/20/19 Unknown Rx amLODIPine 10 mg PO QDAY #30 tablet 08/23/19 10/20/19 Unknown Rx cloNIDine [Catapres] 0.2 mg PO BID #60 08/23/19 10/20/19 Unknown Rx lisinopriL [Zestril TAB] 40 mg PO QDAY #30 tablet 08/23/19 10/20/19 Unknown Rx Jazlyn Root [Jazlyn] 250 mg PO QID PRN #30 capsule 10/15/19 10/20/19 Unknown Rx Albuterol INH(or & Nicu Only) 2 puff IH QID PRN #1 inhalation 01/13/20 Unknown Rx [ProAir HFA Inhaler] ED Review of Systems ROS: Stated complaint: SICKLE CELL Other details as noted in HPI Comment: All other systems reviewed and negative Constitutional: denies: chills, fever Eyes: denies: eye pain, vision change ENT: denies: ear pain, throat pain Respiratory: shortness of breath, wheezing. denies: cough Cardiovascular: denies: chest pain, palpitations Gastrointestinal: nausea, vomiting. denies: abdominal pain Genitourinary: denies: dysuria, discharge Musculoskeletal: back pain, myalgia. denies: joint swelling Skin: denies: rash, lesions Neurological: denies: headache, weakness Physical Exam - Physical Exam Vital Signs: Vital Signs 01/13/20 11:00 Temperature 98.2 F Pulse Rate 91 H Respiratory 20 Rate Blood Pressure 224/124 O2 Sat by Pulse 93 Oximetry Physical Exam: GENERAL: The patient is well-developed well-nourished. HENT: Normocephalic. Atraumatic. Patient has moist mucous membranes. EYES: Extraocular motions are intact. Pupils equal reactive to light bilaterally. NECK: Supple. Trachea is midline. CHEST/LUNGS: Mild expiratory wheezing. No tachypnea or accessory muscle use. There is no respiratory distress noted. HEART/CARDIOVASCULAR: Regular. There is no tachycardia. There is no murmur. ABDOMEN: Abdomen is soft, nontender. Patient has normal bowel sounds. SKIN: Skin is warm and dry. NEURO: The patient is awake, alert, and oriented. The patient is cooperative. The patient has no focal neurologic deficits. Normal speech. MUSCULOSKELETAL: There is no tenderness or deformity. There is no evidence of acute injury. BACK: No midline thoracic or lumbar tenderness to palpation, step-off or defor mity. There is some reproducible lower thoracic and lumbar paraspinal tenderness to palpation bilaterally. ED Course Vital Signs 01/13/20 11:00 Temperature 98.2 F Pulse Rate 91 H Respiratory 20 Rate Blood Pressure 224/124 O2 Sat by Pulse 93 Oximetry ED Medical Decision Making - Lab Data Result diagrams: 01/13/20 14:38 01/13/20 14:38 - Radiology Data Radiology results: report reviewed, image reviewed interpreted by me: Chest x-ray does not show any acute process. There are no pleural effusions, obvious pneumonia and there is no pneumothorax. CTA of the chest with 3D Reconstruction Indication: ,Shortness of breath, elevated d-dimer Technique: TECHNIQUE: Axial CT images were obtained through the chest after injection of 100 cc of Omnipaque 350 IV contrast. 3 plane MIP reconstructions were produced. All CT scans at this location are performed using CT dose reduction for ALARA by means of automated exposure control. COMPARISON: None Automatic exposure control was utilized in an attempt to reduce radiation dose. Findings: Pulmonary arteries: The main pulmonary artery and right and left pulmonary artery branches fill satisfactorily with contrast. No pulmonary embo marin is seen. Lungs: There is focal parenchymal opacity in the lung bases likely representing atelectasis. Mediastinum: The heart is enlarged. Aorta: Normal in diameter. No dissection seen within limits of this exam. There is increased density in the liver possibly related to hemachromatosis. Spleen is small and sclerotic characteristic of autoinfarction. Impression: No pulmonary embolus is seen There is cardiomegaly. - Medical Decision Making This patient presents to the emergency department with some low back pain and leg pain that is consistent with her sickle cell pain crisis. She also has some mild expiratory wheezing but does not appear in any acute or respiratory distress. Patient presents with elevated blood pressure and has a history of hypertension but has not taken her blood pressure medications yet today. She was given a few rounds of IV analgesia as well as a dose of IV antihypertensive medication. The patient's BNP was about 1000 and so the patient was given a dose of IV Lasix for some diuresis. The patient has a leukocytosis of about 19,000, anemia with a hemoglobin of 8.7 and a reticulocyte count of about 17. This is consistent with the patient's previous visits for sickle cell crisis. Patient also had an elevated d-dimer level. For this reason a CT angiography of the chest was done that did not show any pulmonary embolism, dissection, aneurysm, or any other acute process. The patient was reevaluated multiple julia es over multiple hours and says she is feeling greatly improved and asking for discharge home. She has good follow-up with hematology, Dr. Keane, and has been instructed to follow-up with them in the next few days. She will return to the ER with any worsening of her symptoms or any acute distress. She understands and agrees to the plan. - Differential Diagnosis Sickle cell anemia, sickle cell pain crisis, PE, asthma Critical Care Time: No Critical care attestation.: If time is entered above; I have spent that time in minutes in the direct care of this critically ill patient, excluding procedure time. ED Disposition Clinical Impression: Sickle cell pain crisis, Anemia, sickle cell with crisis Hypertension Qualifiers: Hypertension type: essential hypertension Qualified Code(s): I10 - Essential (primary) hypertension Disposition: TO HOME OR SELFCARE Is pt being admited?: No Condition: Stable Instructions: Sickle Cell Crisis (ED), Hypertension (ED), Anemia (ED) Additional Instructions: Please follow-up with your director maternal child and primary care physician in the next few days. Take your blood pressure medications as prescribed. Try to stay away from food that is high in salt and caffeinated products. Keep a blood pressure log. Return to the emergency department with any worsening of your symptoms or any acute distress. Prescriptions: Albuterol INH(or & Nicu Only) [ProAir HFA Inhaler] 2 puff IH QID PRN #1 inhalation PRN Reason: Shortness Of Breath Referrals: RUTHY CASEY MD [Primary Care Provider] - 2-3 Days APTTIE KEANE MD [Referring] - 2-3 Days Time of Disposition: 19:06
[2020-01-13] MEDS ORDERED: hydrALAZINE 20 MG/1 ML INJ IV ONE (14:57)
[2020-01-13] MEDS ORDERED: IPRATROPIUM/ALBUTEROL SULFATE 3 ML AMPUL.NEB IH ONE (14:57)
[2020-01-13 15:52] LABS: Hematocrit 25.9 % (30.3-42.9)
[2020-01-13 16:00] LABS: Eosinophils % (Auto) 2.2 % (0.0-4.3); Hemoglobin 8.7 gm/dl (10.1-14.3); Mean Corpuscular HGB Conc 34 % (30-34); Mean Corpuscular Volume 92 fl (79-97); Monocytes % (Auto) 8.7 % (0.0-7.3); Platelet Count 474 K/mm3 (140-440); Red Blood Count 2.81 M/mm3 (3.65-5.03)
[2020-01-13 16:05] LABS: BUN/Creatinine Ratio 18; Blood Urea Nitrogen 16 mg/dL (7-17); Calcium 8.9 mg/dL (8.4-10.2); Hemolysis Index 9; Red Cell Distribution Width 21.2 % (13.2-15.2)
[2020-01-13] MEDS ORDERED: FUROSEMIDE 20 MG/2 ML INJ IV ONE (16:09)
--- NOTE | 2020-01-13 16:41 | XRay Report ---
CHEST 1 VIEW INDICATION: SOB. COMPARISON: 01/09/2020 FINDINGS: Support devices: Unchanged. Heart: Enlarged, unchanged. Lungs/Pleura: There are low lung volumes. Accounting for this, no acute pulmonary or pleural findings . IMPRESSION: 1. Low lung volumes. Accounting for this, no significant change. Signer Name: Alfie Madrigal MD Signed: 01/13/2020 4:37 PM Workstation Name: [id number]
[2020-01-13 16:49] LABS: Basophils % (Manual) 0 % (0.0-1.8); Total Cells Counted 100
[2020-01-13 16:50] LABS: Anisocytosis Few; Platelet Estimate Consistent w Auto; Target Cells Few
[2020-01-13 16:51] LABS: Sickle Cells 1+
[2020-01-13] MEDS ORDERED: diphenhydrAMINE 50 MG/ML VIAL ONE (18:29)
[2020-01-13] MEDS ORDERED: HYDROmorphone 2 MG/1 ML INJ ONE (18:32)
--- NOTE | 2020-01-13 18:38 | Cat Scan Report ---
CTA of the chest with 3D Reconstruction Indication: ,Shortness of breath, elevated d-dimer Technique: TECHNIQUE: Axial CT images were obtained through the chest after injection of 100 cc of Omnipaque 350 IV contrast. 3 plane MIP reconstructions were produced. All CT scans at this location are performed using CT dose reduction for ALARA by means of automated exposure control. COMPARISON: None Automatic exposure control was utilized in an attempt to reduce radiation dose. Findings: Pulmonary arteries: The main pulmonary artery and right and left pulmonary artery branches fill satis factorily with contrast. No pulmonary embolus is seen. Lungs: There is focal parenchymal opacity in the lung bases likely representing atelectasis. Mediastinum: The heart is enlarged. Aorta: Normal in diameter. No dissection seen within limits of this exam. There is increased density in the liver possibly related to hemachromatosis. Spleen is small and scl erotic characteristic of autoinfarction. Impression: No pulmonary embolus is seen There is cardiomegaly. Signer Name: Reddy Manzano MD Signed: 01/13/2020 6:34 PM Workstation Name: [id number]
[2020-01-13 19:53] VITALS: BP 176/85
== END 2020-01-13 19:51 | disposition home or self-care (01) ==
LOC: ED 10:39
DX: D57.00 Hb-SS disease with crisis, unspecified (principal); J45.909 Unspecified asthma, uncomplicated; I10 Essential (primary) hypertension; M19.90 Unspecified osteoarthritis, unspecified site; D64.9 Anemia, unspecified; Z90.49 Acquired absence of other specified parts of digestive tract; Z98.890 Other specified postprocedural states; Z79.899 Other long term (current) drug therapy; Z88.6 Allergy status to analgesic agent
CPT/HCPCS: 36415; 71045; 71275; 80048; 83880; 84484; 84703; 85007; 85025; 85045; 85379; 94640; 96374; 96375; 96376; 99284; J0360; J1170; J1200; J1642; J1940; J2405; Q9967; 94644

== ENCOUNTER 2020-01-26 12:34 | Emergency (ER) | payer MEDICAID ==
[2020-01-26 13:08] VITALS: BP 212/98
--- NOTE | 2020-01-26 13:10 | Emergency Department Report ---
Blank Doc - Documentation Documentation: 34-year-old female that presents with generalized pain with hx of sickle cell. This initial assessment/diagnostic orders/clinical plan/treatment(s) is/are subject to change based on patient's health status, clinical progression and re- assessment by fellow clinical providers in the ED. Further treatment and workup at subsequent clinical providers discretion. Patient/guardians urged not to elope from the ED as their condition may be serious if not clinically assessed and managed. Initial orders include: 1- Patient sent to MAIN ED for further evaluation and treatment 2- labs 3- UA
== END 2020-01-26 17:19 | disposition left against medical advice (07) ==
LOC: ED 12:34
DX: M79.18 Myalgia, other site (principal); Z53.21 Procedure and treatment not carried out due to patient leaving prior to being seen by health care provider

== ENCOUNTER 2020-02-25 11:36 | Emergency (ER) | payer MEDICAID ==
[2020-02-25] MEDS ORDERED: diphenhydrAMINE 50 MG/ML VIAL IV ONE ×3 (13:19→16:02)
[2020-02-25] MEDS ORDERED: ONDANSETRON 4 MG/2 ML INJ IV ONE (13:19)
[2020-02-25] MEDS ORDERED: HYDROmorphone 2 MG/1 ML INJ IV ONE ×3 (13:19→15:50)
--- NOTE | 2020-02-25 13:21 | Emergency Department Report ---
ED General Adult HPI - General Chief complaint: Sickle Cell Crisis Stated complaint: SICKLE CELL CRISIS Time Seen by Provider: 02/25/20 13:15 Source: patient Mode of arrival: Ambulatory Limitations: No Limitations - History of Present Illness Initial comments: 34-year-old female the past medical history of sickle cell disease, asthma, hypertension, previous cholecystectomy, , and [id number] placement presents to the hospital complaining of pain secondary to sickle cell crisis that yesterday patient completed 08/14 pains throughout her back and extremities. Pain is constant and not alleviated with her home methadone or Percocet. Patient states pain is typical of sickle cell crisis and denies fever, chest pain, shortness of breath, des pain, or dysuria. Manager Testing: Dr. Torres - Related Data Home Medications Medication Instructions Recorded Confirmed Last Taken Methadone [Dolophine] 20 mg PO BID 03/19/19 02/25/20 08/18/19 Percocet 5/325 mg 10 mg PO PRN 01/29/20 02/25/20 01/28/20 Previous Rx's Medication Instructions Recorded Last Taken Type Folic Acid [Folvite] 1 mg PO DAILY #30 tablet 08/23/19 01/29/20 Rx Hydroxyurea 500 mg PO DAILY #30 cap 08/23/19 Unknown Rx amLODIPine 10 mg PO QDAY #30 tablet 08/23/19 01/28/20 Rx cloNIDine [Catapres] 0.2 mg PO BID #60 08/23/19 01/28/20 Rx lisinopriL [Zestril TAB] 40 mg PO QDAY #30 tablet 08/23/19 01/28/20 Rx Albuterol INH(or & Nicu Only) 2 puff IH QID PRN #1 inhalation 01/13/20 01/29/20 11:27 Rx [ProAir HFA Inhaler] Allergies Allergy/AdvReac Type Severity Reaction Status Date / Time morphine Allergy Shortness Verified 10/19/19 18:58 of Breath ED Review of Systems ROS: Stated complaint: SICKLE CELL CRISIS Other details as noted in HPI Comment: All other systems reviewed and negative ED Past Medical Hx - Past Medical History Previous Medical History?: Yes Hx Hypertension: Yes Hx CVA: No Hx Heart Attack/AMI: No Hx Congestive Heart Failure: No Hx Diabetes: No Hx Deep Vein Thrombosis: No Hx Pulmonary Embolism: No Hx GERD: No Hx Liver Disease: No Hx Renal Disease: No Hx Sickle Cell Disease: Yes Hx Arthritis: Yes Hx Headaches / Migraines: No Hx Seizures: No Hx Kidney Stones: No Hx Psychiatric Treatment: No Hx Asthma: Yes Hx COPD: No Hx HIV: No Additional medical history: ANEMIA, multiple port infections - Surgical History Past Surgical History?: Yes Hx Cholecystectomy: Yes Additional Surgical History: , port removed June 2014. PICC line left upper arm (11/19/2014). . - Social History Smoking Status: Never Smoker Substance Use Type: None - Medications Home Medications: Home Medications Medication Instructions Recorded Confirmed Last Taken Type Methadone [Dolophine] 20 mg PO BID 03/19/19 02/25/20 08/18/19 History Folic Acid [Folvite] 1 mg PO DAILY #30 tablet 08/23/19 02/25/20 01/29/20 Rx Hydroxyurea 500 mg PO DAILY #30 cap 08/23/19 02/25/20 Unknown Rx amLODIPine 10 mg PO QDAY #30 tablet 08/23/19 02/25/20 01/28/20 Rx cloNIDine [Catapres] 0.2 mg PO BID #60 08/23/19 02/25/20 01/28/20 Rx lisinopriL [Zestril TAB] 40 mg PO QDAY #30 tablet 08/23/19 02/25/20 01/28/20 Rx Albuterol INH(or & Nicu Only) 2 puff IH QID PRN #1 inhalation 01/13/20 02/25/20 01/29/20 11:27 Rx [ProAir HFA Inhaler] Percocet 5/325 mg 10 mg PO PRN 01/29/20 02/25/20 01/28/20 History ED Physical Exam - General Limitations: No Limitations - Other Other exam information: General: No acute distress Head: Atraumatic Eyes: normal appearance, nonicteric sclera with pink conjunctival ENT: Moist mucous membranes Neck: Normal appearance, no midline tenderness Chest: Clear to auscultation bilaterally CV: Regular rate and rhythm Abdomen: Soft, normal bowel sounds, nontender, nondistended, no rebound or guarding Back: Normal inspection, generalized lumbar and thoracic pain with palpation Extremity: Normal inspection, full range of motion Neuro: Alert O x 3, no facial asymmetry, speech clear, no gross motor sensory deficit Psych: Appropriate behavior Skin: No rash ED Course Vital Signs 02/25/20 02/25/20 02/25/20 12:01 14:18 14:34 Temperature 99.2 F 98.6 F Pulse Rate 96 H 94 H Respiratory 20 18 Rate Blood Pressure 193/97 Blood Pressure 201/109 [Left] O2 Sat by Pulse 93 98 Oximetry 02/25/20 02/25/20 02/25/20 14:52 15:40 16:08 Temperature Pulse Rate 90 99 H 92 H Respiratory 22 Rate Blood Pressure 200/115 198/100 Blood Pressure 199/104 [Left] O2 Sat by Pulse 92 Oximetry 02/25/20 16:33 Temperature Pulse Rate 85 Respiratory 24 Rate Blood Pressure Blood Pressure 178/84 [Left] O2 Sat by Pulse Oximetry ED Medical Decision Making - Lab Data Result diagrams: 02/25/20 14:00 Lab Results 02/25/20 Range/Units 14:00 WBC 14.8 H (4.5-11.0) K/mm3 RBC 2.43 L (3.65-5.03) M/mm3 Hgb 7.8 L (10.1-14.3) gm/dl Hct 23.5 L (30.3-42.9) % MCV 97 (79-97) fl MCH 32 (28-32) pg MCHC 33 (30-34) % RDW 27.1 H (13.2-15.2) % Plt Count 314 (140-440) K/mm3 Add Manual Diff Complete Total Counted 100 Seg Neuts % (Manual) 81.0 H (40.0-70.0) % Band Neutrophils % 0 % Lymphocytes % (Manual) 14.0 (13.4-35.0) % Reactive Lymphs % (Man) 0 % Monocytes % (Manual) 3.0 (0.0-7.3) % Eosinophils % (Manual) 1.0 (0.0-4.3) % Basophils % (Manual) 1.0 (0.0-1.8) % Metamyelocytes % 0 % Myelocytes % 0 % Promyelocytes % 0 % Blast Cells % 0 % Nucleated RBC % 112.0 H (0.0-0.9) % Seg Neutrophils # Man 15.2 H (1.8-7.7) K/mm3 Band Neutrophils # 0.0 K/mm3 Lymphocytes # (Manual) 2.6 (1.2-5.4) K/mm3 Abs React Lymphs (Man) 0.0 K/mm3 Monocytes # (Manual) 0.6 (0.0-0.8) K/mm3 Eosinophils # (Manual) 0.2 (0.0-0.4) K/mm3 Basophils # (Manual) 0.2 H (0.0-0.1) K/mm3 Metamyelocytes # 0.0 K/mm3 Myelocytes # 0.0 K/mm3 Promyelocytes # 0.0 K/mm3 Blast Cells # 0.0 K/mm3 Hypersegmented Neuts Not Reportable Hyposegmented Neuts Not Reportable Hypogranular Neuts Not Reportable Smudge Cells Not Reportable Toxic Granulation Not Reportable Toxic Vacuolation Not Reportable Dohle Bodies Not Reportable Pelger-Huet Anomaly Not Reportable Ariadne Rods Not Reportable Platelet Estimate Consistent w auto Clumped Platelets Not Reportable Plt Clumps, EDTA Not Reportable Large Platelets Not Reportable Giant Platelets Not Reportable Platelet Satelliting Not Reportable Plt Morphology Comment Not Reportable RBC Morphology Not Reportable Dimorphic RBCs Not Reportable Polychromasia 1+ Hypochromasia Not Reportable Poikilocytosis Not Reportable Anisocytosis 3+ Microcytosis 1+ Macrocytosis 2+ Spherocytes Not Reportable Pappenheimer Bodies Not Reportable Sickle Cells 1+ Target Cells 1+ Tear Drop Cells Not Reportable Ovalocytes Not Reportable Helmet Cells Not Reportable Wal[place] Bodies Not Reportable [place] Rings Not Reportable Sumner Cells Not Reportable Bite Cells Not Reportable Crenated Cell Not Reportable Elliptocytes Not Reportable Acanthocytes (Spur) Not Reportable Rouleaux Not Reportable Hemoglobin C Crystals Not Reportable Schistocytes Rare Malaria parasites Not Reportable Percent Retic 18.59 H (0.78-2.58) % Alexis Bodies Not Reportable Hem Pathologist Commnt Sent to pathology - Medical Decision Making pain and bp improved with ed tx pt denies dysuria mild anemia noted pt to be d/jaleesa to continue current meds and f/u with Dr Torres - Differential Diagnosis Anemia, sickle cell pain Critical Care Time: No Critical care attestation.: If time is entered above; I have spent that time in minutes in the direct care of this critically ill patient, excluding procedure time. ED Disposition Clinical Impression: Anemia, sickle cell with crisis, Uncontrolled hypertension Disposition: DC-01 TO HOME OR SELFCARE Is pt being admited?: No Does the pt Need Aspirin: No Condition: Stable Instructions: Sickle Cell Crisis (ED), Hypertension (ED) Additional Instructions: Continue your current medication as prescribed. Follow-up with your doctor or doctor/clinic provided. Return if symptoms worsen as indicated by your discharge instructions. Referrals: PRIMARY MD JACINTO [Primary Care Provider] - 3-5 Days MD Brian [Other] - 3-5 Days Time of Disposition: 17:12
[2020-02-25] MEDS ORDERED: D5W/0.2% NACL 1,000 ML IV SCH (14:00)
[2020-02-25 14:20] LABS: Hematocrit 23.5 % (30.3-42.9); Hemoglobin 7.8 gm/dl (10.1-14.3); Mean Corpuscular HGB Conc 33 % (30-34); Mean Corpuscular Volume 97 fl (79-97); Platelet Count 314 K/mm3 (140-440); Red Blood Count 2.43 M/mm3 (3.65-5.03)
[2020-02-25 14:40] LABS: Red Cell Distribution Width 27.1 % (13.2-15.2)
[2020-02-25] MEDS ORDERED: cloNIDine 0.2 MG TAB ONE (14:41)
[2020-02-25] MEDS ORDERED: cloNIDine 0.2 MG TAB PO ONE (14:42)
[2020-02-25 15:41] LABS: Anisocytosis 3+; Macrocytosis 2+; Total Cells Counted 100
[2020-02-25 15:42] LABS: Schistocytes Rare; Sickle Cells 1+
[2020-02-25 15:43] LABS: Platelet Estimate Consistent w Auto; Target Cells 1+
[2020-02-25] MEDS ORDERED: diphenhydrAMINE 50 MG/ML VIAL ONE (16:01)
[2020-02-25] MEDS ORDERED: ETOMIDATE 20 MG/10 ML INJ IV ONE (16:29)
[2020-02-25 16:35] VITALS: BP 178/84
== END 2020-02-25 17:25 | disposition home or self-care (01) ==
LOC: ED 11:36
DX: D64.9 Anemia, unspecified (principal); D57.00 Hb-SS disease with crisis, unspecified; I10 Essential (primary) hypertension; M19.91 Primary osteoarthritis, unspecified site; J45.909 Unspecified asthma, uncomplicated; Z90.49 Acquired absence of other specified parts of digestive tract; Z98.890 Other specified postprocedural states; Z79.899 Other long term (current) drug therapy; Z88.8 Allergy status to other drugs, medicaments and biological substances
CPT/HCPCS: 36415; 85007; 85025; 85045; 96374; 96375; 96376; 99283; J1170; J1200; J1642; J2405

== ENCOUNTER 2020-03-11 12:52 | Emergency (ER) | payer MEDICAID ==
[2020-03-11] MEDS ORDERED: ONDANSETRON 4 MG/2 ML INJ IV ONE (13:49)
[2020-03-11] MEDS ORDERED: HYDROmorphone 1 MG/1 ML INJ IV STA (13:49)
[2020-03-11] MEDS ORDERED: diphenhydrAMINE 50 MG/ML VIAL IV ONE ×2 (13:49→15:48)
--- NOTE | 2020-03-11 13:56 | Emergency Department Report ---
ED General Adult HPI - General Chief complaint: Sickle Cell Crisis Stated complaint: SICKLE CELL Time Seen by Provider: 03/11/20 13:48 Source: patient Mode of arrival: Ambulatory Limitations: No Limitations - History of Present Illness Initial comments: This is a 34 yo female with hx of SCD, HTN, who presents with pain in pain in back and legs for one day. No fever. No cough. No chest pain. Home medications do not provide any relief. 08/14 severe pain, gradual onset, no migration -: Gradual, days(s) (1) Location: back, left, right, lower extremity Severity scale (0 -10): 10 Consistency: constant Improves with: none Worsens with: none Associated Symptoms: denies other symptoms - Related Data Home Medications Medication Instructions Recorded Confirmed Last Taken Methadone [Dolophine] 20 mg PO BID 03/19/19 02/25/20 08/18/19 Percocet 5/325 mg 10 mg PO PRN 01/29/20 02/25/20 01/28/20 Previous Rx's Medication Instructions Recorded Last Taken Type Folic Acid [Folvite] 1 mg PO DAILY #30 tablet 08/23/19 01/29/20 Rx Hydroxyurea 500 mg PO DAILY #30 cap 08/23/19 Unknown Rx amLODIPine 10 mg PO QDAY #30 tablet 08/23/19 01/28/20 Rx cloNIDine [Catapres] 0.2 mg PO BID #60 08/23/19 01/28/20 Rx lisinopriL [Zestril TAB] 40 mg PO QDAY #30 tablet 08/23/19 01/28/20 Rx Albuterol INH(or & Nicu Only) 2 puff IH QID PRN #1 inhalation 01/13/20 01/29/20 11:27 Rx [ProAir HFA Inhaler] Allergies Allergy/AdvReac Type Severity Reaction Status Date / Time morphine Allergy Shortness Verified 10/19/19 18:58 of Breath ED Review of Systems ROS: Stated complaint: SICKLE CELL Other details as noted in HPI Comment: All other systems reviewed and negative Constitutional: denies: fever, malaise Respiratory: denies: cough, shortness of breath Cardiovascular: denies: chest pain Gastrointestinal: denies: abdominal pain Musculoskeletal: myalgia ED Past Medical Hx - Past Medical History Previous Medical History?: Yes Hx Hypertension: Yes Hx CVA: No Hx Heart Attack/AMI: No Hx Congestive Heart Failure: No Hx Diabetes: No Hx Deep Vein Thrombosis: No Hx Pulmonary Embolism: No Hx GERD: No Hx Liver Disease: No Hx Renal Disease: No Hx Sickle Cell Disease: Yes Hx Arthritis: Yes Hx Headaches / Migraines: No Hx Seizures: No Hx Kidney Stones: No Hx Psychiatric Treatment: No Hx Asthma: Yes Hx COPD: No Hx HIV: No Additional medical history: ANEMIA, multiple port infections - Surgical History Past Surgical History?: Yes Hx Cholecystectomy: Yes Additional Surgical History: , port removed June 2014. PICC line left upper arm (11/19/2014). . - Social History Smoking Status: Never Smoker Substance Use Type: None - Medications Home Medications: Home Medications Medication Instructions Recorded Confirmed Last Taken Type Methadone [Dolophine] 20 mg PO BID 03/19/19 02/25/20 08/18/19 History Folic Acid [Folvite] 1 mg PO DAILY #30 tablet 08/23/19 02/25/20 01/29/20 Rx Hydroxyurea 500 mg PO DAILY #30 cap 08/23/19 02/25/20 Unknown Rx amLODIPine 10 mg PO QDAY #30 tablet 08/23/19 02/25/20 01/28/20 Rx cloNIDine [Catapres] 0.2 mg PO BID #60 08/23/19 02/25/20 01/28/20 Rx lisinopriL [Zestril TAB] 40 mg PO QDAY #30 tablet 08/23/19 02/25/20 01/28/20 Rx Albuterol INH(or & Nicu Only) 2 puff IH QID PRN #1 inhalation 01/13/20 02/25/20 01/29/20 11:27 Rx [ProAir HFA Inhaler] Percocet 5/325 mg 10 mg PO PRN 01/29/20 02/25/20 01/28/20 History ED Physical Exam - General Limitations: No Limitations General appearance: alert, in no apparent distress - Head Head exam: Present: atraumatic, normocephalic - Eye Eye exam: Present: normal appearance - ENT ENT exam: Present: mucous membranes moist - Neck Neck exam: Present: normal inspection, full ROM - Respiratory Respiratory exam: Present: normal lung sounds bilaterally. Absent: respiratory distress, wheezes, rales, rhonchi - Cardiovascular Cardiovascular Exam: Present: regular rate, normal rhythm, normal heart sounds. Absent: systolic murmur, diastolic murmur, rubs, gallop - GI/Abdominal GI/Abdominal exam: Present: soft. Absent: distended, tenderness, guarding, rebound - Extremities Exam Extremities exam: Present: normal inspection - Neurological Exam Neurological exam: Present: alert, oriented X3 - Psychiatric Psychiatric exam: Present: normal affect, normal mood - Skin Skin exam: Present: warm, dry, intact, normal color. Absent: rash ED Course Vital Signs 03/11/20 03/11/20 03/11/20 13:00 13:02 16:16 Temperature 98.5 F 98.3 F Pulse Rate 97 H 92 H Respiratory 18 14 16 Rate Blood Pressure 177/93 Blood Pressure 179/95 173/95 [Left] O2 Sat by Pulse 97 97 95 Oximetry ED Medical Decision Making - Lab Data Result diagrams: 03/11/20 14:05 03/11/20 14:01 - Medical Decision Making This is a 34-year-old female who presents with sickle cell disease pain crisis. Symptoms improved with multiple doses of analgesia and IV fluid therapy. She is discharged home. Labs remarkable for baseline anemia and persistent l eukocytosis. No indication of infection. Critical care attestation.: If time is entered above; I have spent that time in minutes in the direct care of this critically ill patient, excluding procedure time. ED Disposition Clinical Impression: Anemia, sickle cell with crisis Disposition: -01 TO HOME OR SELFCARE Is pt being admited?: No Does the pt Need Aspirin: No Condition: Stable Referrals: SHAYE ESPINOZA MD [Staff Physician] - as needed
[2020-03-11] MEDS ORDERED: HYDROmorphone 1 MG/1 ML INJ IV ONE ×2 (14:22→15:48)
[2020-03-11 14:40] LABS: Basophils # (Auto) 0.2 K/mm3 (0.0-0.1); Basophils % (Auto) 0.9 % (0.0-1.8); Eosinophils # (Auto) 0.6 K/mm3 (0.0-0.4); Eosinophils % (Auto) 3.2 % (0.0-4.3); Hemoglobin 9.5 gm/dl (10.1-14.3); Lymphocytes # (Auto) 3.9 K/mm3 (1.2-5.4); Lymphocytes % (Auto) 21.8 % (13.4-35.0); Mean Corpuscular HGB Conc 34 % (30-34); Mean Corpuscular Volume 92 fl (79-97); Monocytes # (Auto) 1.8 K/mm3 (0.0-0.8); Platelet Count 500 K/mm3 (140-440); Red Blood Count 3.05 M/mm3 (3.65-5.03)
[2020-03-11 14:56] LABS: Alanine Aminotransferase 62 units/L (7-56); Albumin 3.5 g/dL (3.9-5); BUN/Creatinine Ratio 14; Blood Urea Nitrogen 13 mg/dL (7-17); Calcium 8.9 mg/dL (8.4-10.2); Hemolysis Index 20
[2020-03-11] MEDS ORDERED: D5W/0.2% NACL 1,000 ML IV SCH (15:00)
[2020-03-11 15:09] LABS: Erythrocyte Sedimentation Rate 37 mm/Hr (0-20)
[2020-03-11] MEDS ORDERED: LORazepam 2 MG/ML VIAL ONE (15:40)
[2020-03-11] MEDS ORDERED: diphenhydrAMINE 50 MG/ML VIAL ONE (15:51)
[2020-03-11 16:26] VITALS: BP 173/95
== END 2020-03-11 17:30 | disposition home or self-care (01) ==
LOC: ED 12:52
DX: D57.00 Hb-SS disease with crisis, unspecified (principal); I10 Essential (primary) hypertension; M19.90 Unspecified osteoarthritis, unspecified site; J45.909 Unspecified asthma, uncomplicated; Z90.49 Acquired absence of other specified parts of digestive tract; Z79.899 Other long term (current) drug therapy; Z98.890 Other specified postprocedural states; Z88.6 Allergy status to analgesic agent
CPT/HCPCS: 36415; 80053; 84703; 85025; 85045; 85652; 96374; 96375; 96376; 99283; J1170; J1200; J1642; J2405; J2060

== ENCOUNTER 2020-03-21 13:46 | Inpatient (IN) | payer MEDICAID ==
[2020-03-21] MEDS ORDERED: ACETAMINOPHEN 325 MG TAB ONE (14:01)
[2020-03-21] MEDS ORDERED: ACETAMINOPHEN 325 MG TAB PO ONE (14:02)
--- NOTE | 2020-03-21 14:52 | Event Note ---
ED Screening Note Date of service: 03/21/20 Time: 14:51 ED Screening Note: 34 yr old sickler preents with leg and back pain, presents with fever, no URI sx This initial assessment/diagnostic orders/clinical plan/treatment(s) is/are subject to change based on patients health status, clinical progression and re- assessment by fellow clinical providers in the ED. Further treatment and workup at subsequent clinical providers discretion. Patient/guardian urged not to elope from the ED as their condition may be serious if not clinically assessed and managed. Initial orders include: labs, xray, ua main eval
--- NOTE | 2020-03-21 15:07 | XRay Report ---
CHEST 2 VIEWS INDICATION / CLINICAL INFORMATION: fever. COMPARISON: 01/29/2020 FINDINGS: SUPPORT DEVICES: Port-A-Cath remains on the left. HEART / MEDIASTINUM: Moderately enlarged but stable. LUNGS / PLEURA: No significant pulmonary or pleural abnormality. No pneumothorax.. Interstitial thai ngs appear chronic. ADDITIONAL FINDINGS: No significant additional findings. IMPRESSION: 1. No acute findings. Signer Name: Shankar Loja MD Signed: 03/21/2020 3:03 PM Workstation Name: [id number]
[2020-03-21] MEDS ORDERED: SODIUM CHLORIDE 0.9% 1000 ML 1,000 ML IV ONE ×3 (17:39→18:25)
[2020-03-21] MEDS ORDERED: HYDROmorphone 1 MG/1 ML INJ IV ONE ×2 (17:39→18:25)
[2020-03-21] MEDS ORDERED: KETOROLAC 30 MG/1 ML INJ IV ONE (17:39)
[2020-03-21] MEDS ORDERED: diphenhydrAMINE 50 MG/ML VIAL IV ONE (17:39)
[2020-03-21 18:19] LABS: Hematocrit 27.4 % (30.3-42.9); Hemoglobin 8.9 gm/dl (10.1-14.3); Mean Corpuscular HGB Conc 33 % (30-34); Mean Corpuscular Volume 93 fl (79-97); Platelet Count 613 K/mm3 (140-440); Red Blood Count 2.95 M/mm3 (3.65-5.03); Red Cell Distribution Width 18.5 % (13.2-15.2)
--- NOTE | 2020-03-21 18:33 | Emergency Department Report ---
<PONCHO MERLOS - Last Filed: 03/21/20 18:28> ED General Adult HPI - General Chief complaint: Sickle Cell Crisis Stated complaint: SICKLE CELL Time Seen by Provider: 03/21/20 17:39 Source: patient Mode of arrival: Ambulatory Limitations: No Limitations - History of Present Illness Initial comments: Patient is a 34-year-old F [place] female with history of sickle cell who is presenting with low back and leg pain. Patient states pain is consistent with her sickle cell disease. She denies cough cold congestion dysuria however she did have a fever on arrival. Patient denies any nausea vomiting or diarrhea. Patient does states she had a pressure-like sensation in the mid face consistent with a possible sinus infection earlier today. Severity scale (0 -10): 10 - Related Data Home Medications Medication Instructions Recorded Confirmed Last Taken Methadone [Dolophine] 20 mg PO BID 03/19/19 02/25/20 08/18/19 Percocet 5/325 mg 10 mg PO PRN 01/29/20 02/25/20 01/28/20 Previous Rx's Medication Instructions Recorded Last Taken Type Folic Acid [Folvite] 1 mg PO DAILY #30 tablet 08/23/19 01/29/20 Rx Hydroxyurea 500 mg PO DAILY #30 cap 08/23/19 Unknown Rx amLODIPine 10 mg PO QDAY #30 tablet 08/23/19 01/28/20 Rx cloNIDine [Catapres] 0.2 mg PO BID #60 08/23/19 01/28/20 Rx lisinopriL [Zestril TAB] 40 mg PO QDAY #30 tablet 08/23/19 01/28/20 Rx Albuterol INH(or & Nicu Only) 2 puff IH QID PRN #1 inhalation 01/13/20 01/29/20 11:27 Rx [ProAir HFA Inhaler] Allergies Allergy/AdvReac Type Severity Reaction Status Date / Time morphine Allergy Shortness Verified 10/19/19 18:58 of Breath ED Review of Systems Comment: All other systems reviewed and negative ED Past Medical Hx - Past Medical History Hx Hypertension: Yes Hx CVA: No Hx Heart Attack/AMI: No Hx Congestive Heart Failure: No Hx Diabetes: No Hx Deep Vein Thrombosis: No Hx Pulmonary Embolism: No Hx GERD: No Hx Liver Disease: No Hx Renal Disease: No Hx Sickle Cell Disease: Yes Hx Arthritis: Yes Hx Headaches / Migraines: No Hx Seizures: No Hx Kidney Stones: No Hx Psychiatric Treatment: No Hx Asthma: Yes Hx COPD: No Hx HIV: No Additional medical history: ANEMIA, multiple port infections - Surgical History Hx Cholecystectomy: Yes Additional Surgical History: , port removed June 2014. PICC line left upper arm (11/19/2014). . - Social History Smoking Status: Never Smoker Substance Use Type: None - Medications Home Medications: Home Medications Medication Instructions Recorded Confirmed Last Taken Type Methadone [Dolophine] 20 mg PO BID 03/19/19 02/25/20 08/18/19 History Folic Acid [Folvite] 1 mg PO DAILY #30 tablet 08/23/19 02/25/20 01/29/20 Rx Hydroxyurea 500 mg PO DAILY #30 cap 08/23/19 02/25/20 Unknown Rx amLODIPine 10 mg PO QDAY #30 tablet 08/23/19 02/25/20 01/28/20 Rx cloNIDine [Catapres] 0.2 mg PO BID #60 08/23/19 02/25/20 01/28/20 Rx lisinopriL [Zestril TAB] 40 mg PO QDAY #30 tablet 08/23/19 02/25/20 01/28/20 Rx Albuterol INH(or & Nicu Only) 2 puff IH QID PRN #1 inhalation 01/13/20 02/25/20 01/29/20 11:27 Rx [ProAir HFA Inhaler] Percocet 5/325 mg 10 mg PO PRN 01/29/20 02/25/20 01/28/20 History ED Physical Exam - General Limitations: No Limitations General appearance: alert, in no apparent distress - Head Head exam: Present: atraumatic, normocephalic - Eye Eye exam: Present: normal appearance - ENT ENT exam: Present: mucous membranes moist - Neck Neck exam: Present: normal inspection - Respiratory Respiratory exam: Present: normal lung sounds bilaterally. Absent: respiratory distress, wheezes, rales, rhonchi - Cardiovascular Cardiovascular Exam: Present: regular rate, normal rhythm. Absent: systolic murmur, diastolic murmur, rubs, gallop - GI/Abdominal GI/Abdominal exam: Present: soft, normal bowel sounds. Absent: distended, tenderness, guarding, rebound - Extremities Exam Extremities exam: Present: normal inspection - Back Exam Back exam: Present: normal inspection - Neurological Exam Neurological exam: Present: alert, oriented X3 - Psychiatric Psychiatric exam: Present: normal affect, normal mood - Skin Skin exam: Present: warm, dry, intact, normal color. Absent: rash ED Course - Reevaluation(s) Reevaluation #1: 03/21/20 18:32 Patient was started on IV hydration. 3 L of normal saline have been ordered. Patient was started with an initial 2 mg of Dilaudid and another is been ordered to be given as needed for pain is greater than 8 after the first liter. Patient be signed out reevaluation. ED Medical Decision Making - Lab Data Result diagrams: 03/21/20 18:06 - Radiology Data Radiology results: image reviewed (CXR WNL) ED Disposition Clinical Impression: Anemia, sickle cell with crisis, Sepsis, Fever Disposition: OP ADMIT IP TO THIS HOSP Condition: Stable Referrals: PATTIE KEANE MD [Primary Care Provider] - 3-5 Days <BRIJESH GIMENEZ - Last Filed: 03/21/20 21:23> ED Review of Systems ROS: Stated complaint: SICKLE CELL Other details as noted in HPI ED Course Vital Signs 03/21/20 03/21/20 03/21/20 13:55 14:03 16:20 Temperature 102.1 F H 98.6 F Pulse Rate 117 H Respiratory 20 20 Rate Blood Pressure 197/107 Blood Pressure [Right] O2 Sat by Pulse 97 Oximetry 03/21/20 19:58 Temperature Pulse Rate 96 H Respiratory 18 Rate Blood Pressure Blood Pressure 158/92 [Right] O2 Sat by Pulse 96 Oximetry ED Medical Decision Making - Lab Data Result diagrams: 03/21/20 18:06 03/21/20 14:03 - Radiology Data Radiology results: report reviewed - Medical Decision Making Ms. Mendoza is a 34-year-old female signed out to me by my colle ague Dr. Poncho Merlos.patient with history of sickle cell who is presenting with low back and leg pain. Patient states pain is consistent with her sickle cell disease. She denies cough cold congestion dysuria however she did have a fever on arrival. Patient denies any nausea vomiting or diarrhea. Patient does states she had a pressure-like sensation in the mid face consistent with a possible sinus infection earlier today. Sepsis protocol initiated. Patient received normal saline, Zosyn and multiple doses of pain medication. Chest x-ray is unremarkable. Urine is negative for acute finding. Patient abdomen is soft, nontender with no clinical evidence of acute abdomen. Patient does have a port. Upon reviewing the patient medical record patient has multiple ER visits using the report for IV access, this is might be the source of her infection. Vancomycin also added for her regimen. I discussed the patient with Dr. Ochoa, he agreed to admit the patient to medical service for further management. Critical Care Time: Yes Critical care time in (mins) excluding proc time.: 30 Critical care attestation.: If time is entered above; I have spent that time in minutes in the direct care of this critically ill patient, excluding procedure time. ED Disposition Is pt being admited?: Yes
[2020-03-21 18:39] LABS: Alanine Aminotransferase 33 units/L (7-56); Albumin 3.4 g/dL (3.9-5); BUN/Creatinine Ratio 14; Blood Urea Nitrogen 13 mg/dL (7-17); Calcium 8.5 mg/dL (8.4-10.2); Hemolysis Index 16
[2020-03-21] MEDS ORDERED: KETOROLAC 30 MG/1 ML INJ ONE (20:44)
[2020-03-21 20:53] LABS: Bilirubin,Urine NEG (Negative); Blood,Urine LG (Negative); Color,Urine Yellow (Yellow); Urobilinogen,Urine < 2.0 mg/dL (<2.0)
[2020-03-21] MEDS ORDERED: PIPERACILLIN/TAZOBACTAM 3.375 3.375 GM/50 ML BAG IV ONE ×2 (21:01→22:25)
[2020-03-21] MEDS ORDERED: MORPHINE 4 MG/1 ML INJ ONE (21:25)
[2020-03-21] MEDS ORDERED: HYDROmorphone 1 MG/1 ML INJ ONE ×2 (21:42→22:24)
[2020-03-21] MEDS ORDERED: SENNOSIDES 8.6 MG TAB PO SCH (22:00)
[2020-03-21] MEDS ORDERED: VANCOMYCIN/NS 1 GM/250 ML 1 GM/250 ML BAG IV ONE (22:00)
[2020-03-21] MEDS ORDERED: ACETAMINOPHEN 325 MG TAB PO PRN (22:08)
[2020-03-21] MEDS ORDERED: ONDANSETRON 4 MG/2 ML INJ IV PRN ×2 (22:08)
[2020-03-21] MEDS ORDERED: MAGNESIUM HYDROXIDE (MOM) ORAL LIQD UDC PO PRN ×2 (22:08)
[2020-03-21] MEDS ORDERED: HYDROmorphone 2 MG/1 ML INJ IV ONE (22:19)
--- NOTE | 2020-03-21 22:23 | History and Physical Report ---
History of Present Illness Date of examination: 03/21/20 Date of admission: 03/21/2020 Chief complaint: Fever Generalized body aches and pain History of present illness: 34-year-old -[place] female with known history of sickle cell disease presenting to the emergency room today complaining of lower back and lower extremity pain which started earlier today. He denies any cough or shortness of breath, no chest pain, no nausea vomiting, no diarrhea no abdominal pain, no hematuria or dysuria. Indicates that she she has had some sinus congestion but denies any fever or chills. Upon arrival in the emergency room patient had a fever of 102.1 F, tachycardic. Work-up was significant for white count of 16 and a reticulocyte count of 13. Past History Past Medical History: hypertension, other (Sickle cell disease, anemia, multiple port infection) Past Surgical History: , Other (PICC line placement on left upper arm, port removal in 2013) Social history: no significant social history Family history: no significant family history Medications and Allergies Allergies Allergy/AdvReac Type Severity Reaction Status Date / Time morphine Allergy Shortness Verified 10/19/19 18:58 of Breath Home Medications Medication Instructions Recorded Confirmed Last Taken Type Methadone [Dolophine] 20 mg PO BID 03/19/19 03/22/20 08/18/19 History Folic Acid [Folvite] 1 mg PO DAILY #30 tablet 08/23/19 03/22/20 01/29/20 Rx Hydroxyurea 500 mg PO DAILY #30 cap 08/23/19 03/22/20 Unknown Rx amLODIPine 10 mg PO QDAY #30 tablet 08/23/19 03/22/20 01/28/20 Rx cloNIDine [Catapres] 0.2 mg PO BID #60 08/23/19 03/22/20 01/28/20 Rx lisinopriL [Zestril TAB] 40 mg PO QDAY #30 tablet 08/23/19 03/22/20 01/28/20 Rx Albuterol INH(or & Nicu Only) 2 puff IH QID PRN #1 inhalation 01/13/20 03/22/20 01/29/20 11:27 Rx [ProAir HFA Inhaler] Percocet 5/325 mg 10 mg PO PRN 01/29/20 03/22/20 01/28/20 History Active Meds: Active Medications Acetaminophen (Tylenol) 650 mg PO Q4H PRN PRN Reason: Pain MILD(1-3)/Fever >100.5/VILLA Bisacodyl (Dulcolax) 10 mg WA QDAY PRN PRN Reason: Constipation unrelieved by MOM Diphenhydramine HCl (Benadryl) 25 mg IV Q6H PRN PRN Reason: Itching Folic Acid (Folvite) 1 mg PO QDAY CARIE Hydromorphone HCl (Dilaudid) 2 mg IV Q2H PRN PRN Reason: Pain , Severe (7-10) Stop: 03/22/20 22:07 Vancomycin HCl (Vancomycin/Ns 1 Gm/250 Ml) 1 gm in 250 mls @ 167.007 mls/hr IV ONCE ONE; Protocol Stop: 03/21/20 23:29 Dextrose/Sodium Chloride (D5/0.45ns) 1,000 mls @ 150 mls/hr IV DIRECT CARIE Stop: 03/22/20 05:39 Piperacillin Sod/Tazobactam Sod (Zosyn/Ns 3.375gm/50ml) 3.375 gm in 50 mls @ 100 mls/hr IV Q8HR CARIE; Protocol Magnesium Hydroxide (Milk Of Magnesia) 30 ml PO Q4H PRN PRN Reason: Constipation Magnesium Hydroxide (Milk Of Magnesia) 30 ml PO Q4H PRN PRN Reason: Constipation Multivitamins (Theragran Tab) 1 each PO QDAY [facility] Ondansetron HCl (Zofran) 4 mg IV Q8H PRN PRN Reason: Nausea And Vomiting Ondansetron HCl (Zofran) 4 mg IV Q8H PRN PRN Reason: Nausea And Vomiting Senna (Senokot) 17.2 mg PO QHS CARIE Sodium Chloride (Sodium Chloride Flush Syringe 10 Ml) 10 ml IV BID CARIE Sodium Chloride (Sodium Chloride Flush Syringe 10 Ml) 10 ml IV PRN PRN PRN Reason: LINE FLUSH Review of Systems Constitutional: fever, no chills Ears, nose, mouth and throat: no nasal congestion, no vertigo Cardiovascular: no chest pain, no palpitations Respiratory: no cough, no shortness of breath Gastrointestinal: no abdominal pain, no nausea, no vomiting, no diarrhea Genitourinary Female: no dysuria, no hematuria Musculoskeletal: no neck pain, no low back pain Integumentary: no rash, no pruritis Neurological: no headaches, no change in mentation Exam - Constitutional Vitals: Temp Pulse Resp BP Pulse Ox 98.6 F 92 H 18 168/90 98 03/21/20 16:20 03/21/20 21:36 03/21/20 21:36 03/21/20 21:36 03/21/20 21:36 General appearance: Present: no acute distress, well-nourished - EENT Eyes: Present: PERRL, EOM intact ENT: hearing intact, clear oral mucosa, dentition normal - Neck Neck: Present: supple, normal ROM - Respiratory Respiratory effort: normal, other (Port on left anterior chest wall, no tenderness and no drainage around site) Respiratory: bilateral: CTA - Cardiovascular Rhythm: regular Heart Sounds: Present: S1 & S2, systolic murmur (soft systolic murmur.) - Extremities Extremities: no ischemia, pulses intact, pulses symmetrical, No edema, Full ROM Peripheral Pulses: within normal limits - Abdominal General gastrointestinal: Present: soft, non-tender, non-distended, normal bowel sounds - Integumentary Integumentary: Present: clear, warm, dry - Musculoskeletal Musculoskeletal: strength equal bilaterally - Psychiatric Psychiatric: appropriate mood/affect, intact judgment & insight, cooperative - Neurologic Neurologic: CNII-XII intact, moves all extremities Results - Labs CBC & Chem 7: 03/22/20 02:11 03/22/20 02:11 Labs: Abnormal lab results 03/21/20 03/21/20 03/21/20 Range/Units 14:03 18:06 20:25 WBC 16.1 H (4.5-11.0) K/mm3 RBC 2.95 L (3.65-5.03) M/mm3 Hgb 8.9 L (10.1-14.3) gm/dl Hct 27.4 L (30.3-42.9) % RDW 18.5 H (13.2-15.2) % Plt Count 613 H (140-440) K/mm3 Percent Retic 13.11 H (0.78-2.58) % Total Bilirubin 1.40 H (0.1-1.2) mg/dL Alkaline Phosphatase 175 H (35-129) units/L Albumin 3.4 L (3.9-5) g/dL Urine WBC (Auto) 9.0 H (0.0-6.0) /HPF Assessment and Plan - Patient Problems (1) Sepsis Current Visit: Yes Status: Acute Plan to address problem: Patient commenced on IV fluid and empiric IV antibiotics. We await blood culture results. (2) Sickle cell anemia with crisis Current Visit: Yes Status: Acute Plan to address problem: Patient has been placed on analgesic medication and will continue on generous IV fluid hydration. Will monitor CBC including reticulocyte count. (3) HTN (hypertension) Current Visit: No Status: Acute Qualifiers: Hypertension type: essential hypertension Qualified Code(s): I10 - Essential (primary) hypertension Plan to address problem: Will resume routine home medications once reconciled. Will monitor vital signs closely. We will also placed on IV hydralazine as needed for blood pressure control. (4) DVT prophylaxis Current Visit: No Status: Acute Plan to address problem: Patient placed on subcutaneous heparin.
[2020-03-21] MEDS: diphenhydrAMINE 50 MG/ML VIAL IV PRN (22:34)
[2020-03-21] MEDS: HYDROmorphone 2 MG/1 ML INJ IV PRN (22:34)
[2020-03-21] MEDS ORDERED: VANCOMYCIN PHARMACY TO DOSE IV SCH (23:00)
[2020-03-21] MEDS ORDERED: D5W/0.45% NACL 1,000 ML IV SCH (23:00)
[2020-03-21] MEDS ORDERED: VANCOMYCIN 2,000 MG in SODIUM CHLORIDE 0.9% 500 ML 500 ML IV ONE (23:00)
[2020-03-22] MEDS ORDERED: HYDROmorphone 1 MG/1 ML INJ ONE ×6 (00:39→13:58)
[2020-03-22] MEDS: HYDROmorphone 2 MG/1 ML INJ IV PRN ×6 (00:40→13:55)
[2020-03-22 02:29] LABS: Basophils # (Auto) 0.1 K/mm3 (0.0-0.1); Basophils % (Auto) 0.8 % (0.0-1.8); Eosinophils # (Auto) 0.1 K/mm3 (0.0-0.4); Eosinophils % (Auto) 0.8 % (0.0-4.3); Hemoglobin 8.5 gm/dl (10.1-14.3); Lymphocytes # (Auto) 2.2 K/mm3 (1.2-5.4); Lymphocytes % (Auto) 16.8 % (13.4-35.0); Mean Corpuscular HGB Conc 33 % (30-34); Mean Corpuscular Volume 94 fl (79-97); Monocytes # (Auto) 1.4 K/mm3 (0.0-0.8); Monocytes % (Auto) 10.8 % (0.0-7.3); Platelet Count 576 K/mm3 (140-440); Red Blood Count 2.77 M/mm3 (3.65-5.03); Red Cell Distribution Width 18.6 % (13.2-15.2)
[2020-03-22 02:40] LABS: INR 1.06 (0.87-1.13)
[2020-03-22] MEDS ORDERED: hydrALAZINE 20 MG/1 ML INJ IV PRN (02:49)
[2020-03-22 02:53] LABS: BUN/Creatinine Ratio 12; Blood Urea Nitrogen 11 mg/dL (7-17); Calcium 8.3 mg/dL (8.4-10.2); Hemolysis Index 7
[2020-03-22] MEDS ORDERED: diphenhydrAMINE 50 MG/ML VIAL ONE ×3 (04:57→11:02)
[2020-03-22] MEDS: diphenhydrAMINE 50 MG/ML VIAL IV PRN ×2 (05:09→11:08)
[2020-03-22] MEDS ORDERED: HEPARIN 5,000 UNIT/1 ML VIAL ONE (05:49)
[2020-03-22] MEDS ORDERED: PIPERACILLIN/TAZOBACTAM 3.375 3.375 GM/50 ML BAG IV ONE ×2 (05:51→14:40)
[2020-03-22] MEDS ORDERED: HEPARIN 5,000 UNIT/1 ML VIAL SUB-Q SCH (06:00)
[2020-03-22] MEDS: PIPERACILLIN/TAZOBACTAM 3.375 3.375 GM/50 ML BAG IV SCH ×2 (06:02→14:45)
[2020-03-22] MEDS ORDERED: MULTIVITAMINS ,THERAPEUTIC TAB PO ONE (09:53)
[2020-03-22] MEDS ORDERED: VANCOMYCIN 1,750 MG in SODIUM CHLORIDE 0.9% 500 ML 500 ML IV SCH (10:00)
[2020-03-22] MEDS ORDERED: FOLIC ACID 1 MG TAB PO SCH ×2 (10:00→14:00)
[2020-03-22] MEDS ORDERED: MULTIVITAMINS ,THERAPEUTIC TAB PO SCH (10:00)
[2020-03-22] MEDS ORDERED: HYDROmorphone 2 MG/1 ML INJ ONE (11:00)
[2020-03-22] MEDS ORDERED: ALBUTEROL 8.5 GM INHALATION IH PRN (13:58)
[2020-03-22] MEDS ORDERED: METHADONE 10 MG TAB PO SCH (14:00)
[2020-03-22] MEDS ORDERED: PERCOCET PO SCH (14:00)
[2020-03-22] MEDS ORDERED: HYDROmorphone 2 MG/1 ML INJ IV PRN (14:01)
[2020-03-22] MEDS ORDERED: PERCOCET PO PRN (14:01)
--- NOTE | 2020-03-22 14:01 | Progress Note ---
Assessment and Plan / Sepsis vs SIRS Current Visit: Yes Status: Acute Plan to address problem: likely from sickle cell crisis Patient commenced on IV fluid and empiric IV antibiotics. We await blood culture results. CXR no infiltrates, UA unremarkable / Sickle cell anemia with crisis Current Visit: Yes Status: Acute Plan to address problem: Patient has been placed on analgesic medication and will continue on generous IV fluid hydration. cont to monitor CBC including reticulocyte count. / HTN (hypertension) Current Visit: No Status: Acute Qualifiers: Hypertension type: essential hypertension Qualified Code(s): I10 - Essential (primary) hypertension Plan to address problem: resume routine home medications. Will monitor vital signs closely. We will also placed on IV hydralazine as needed for blood pressure control. / DVT prophylaxis Current Visit: No Status: Acute Plan to address problem: Patient placed on subcutaneous heparin. Subjective Date of service: 03/22/20 Interval history: Patient seen and examined Appears sleepy, but no acute distress Per RN whenever she awakes up asking for pain meds she c/o back pain Objective - Exam Narrative Exam: General appearance: Present: no acute distress, well-nourished - EENT Eyes: Present: PERRL, EOM intact ENT: hearing intact, clear oral mucosa, dentition normal - Neck Neck: Present: supple, normal ROM - Respiratory Respiratory effort: normal, other (Port on left anterior chest wall, no tenderness and no drainage around site) Respiratory: bilateral: CTA - Cardiovascular Rhythm: regular Heart Sounds: Present: S1 & S2, systolic murmur (soft systolic murmur.) - Extremities Extremities: no ischemia, pulses intact, pulses symmetrical, No edema, Full ROM Peripheral Pulses: within normal limits - Abdominal General gastrointestinal: Present: soft, non-tender, non-distended, normal bowel sounds - Integumentary Integumentary: Present: clear, warm, dry - Musculoskeletal Musculoskeletal: strength equal bilaterally - Psychiatric Psychiatric: appropriate mood/affect, intact judgment & insight, cooperative - Neurologic Neurologic: CNII-XII intact, moves all extremities - Constitutional Vitals: Vital Signs - 12hr 03/22/20 03/22/20 02:46 08:00 Pulse Rate 96 H Respiratory 18 18 Rate Blood Pressure 162/86 [Right] O2 Sat by Pulse 97 97 Oximetry - Labs CBC & Chem 7: 03/22/20 02:11 03/22/20 02:11 Labs: Abnormal lab results 03/21/20 03/21/20 03/21/20 Range/Units 14:03 18:06 20:25 WBC 16.1 H (4.5-11.0) K/mm3 RBC 2.95 L (3.65-5.03) M/mm3 Hgb 8.9 L (10.1-14.3) gm/dl Hct 27.4 L (30.3-42.9) % RDW 18.5 H (13.2-15.2) % Plt Count 613 H (140-440) K/mm3 Cherry % (Auto) (0.0-7.3) % Cherry # (0.0-0.8) K/mm3 Seg Neutrophils % (40.0-70.0) % Seg Neutrophils # (1.8-7.7) K/mm3 Percent Retic 13.11 H (0.78-2.58) % Carbon Dioxide (22-30) mmol/L Glucose (65-100) mg/dL Calcium (8.4-10.2) mg/dL Total Bilirubin 1.40 H (0.1-1.2) mg/dL Alkaline Phosphatase 175 H (35-129) units/L Lactate Dehydrogenase (91-180) units/L Albumin 3.4 L (3.9-5) g/dL Urine WBC (Auto) 9.0 H (0.0-6.0) /HPF 03/22/20 03/22/20 Range/Units 02:11 02:11 WBC 13.2 H (4.5-11.0) K/mm3 RBC 2.77 L (3.65-5.03) M/mm3 Hgb 8.5 L (10.1-14.3) gm/dl Hct 26.0 L (30.3-42.9) % RDW 18.6 H (13.2-15.2) % Plt Count 576 H (140-440) K/mm3 Cherry % (Auto) 10.8 H (0.0-7.3) % Cherry # 1.4 H (0.0-0.8) K/mm3 Seg Neutrophils % 70.8 H (40.0-70.0) % Seg Neutrophils # 9.4 H (1.8-7.7) K/mm3 Percent Retic 11.13 H (0.78-2.58) % Carbon Dioxide 20 L (22-30) mmol/L Glucose 109 H (65-100) mg/dL Calcium 8.3 L (8.4-10.2) mg/dL Total Bilirubin (0.1-1.2) mg/dL Alkaline Phosphatase (35-129) units/L Lactate Dehydrogenase 350 H (91-180) units/L Albumin (3.9-5) g/dL Urine WBC (Auto) (0.0-6.0) /HPF
[2020-03-22] MEDS ORDERED: oxyCODONE /ACETAMINOPHEN 5-325MG TAB PO PRN (14:07)
[2020-03-22] MEDS ORDERED: ALBUTEROL 2.5 MG/3 ML NEBU IH PRN (14:09)
[2020-03-22] MEDS ORDERED: HYDROXYUREA 500 MG CAP PO SCH (16:00)
[2020-03-22 16:01] VITALS: BP 208/113
[2020-03-22] MEDS ORDERED: cloNIDine 0.2 MG TAB PO SCH (22:00)
[2020-03-23] MEDS ORDERED: LISINOPRIL 40 MG TAB PO SCH (10:00)
[2020-03-23] MEDS ORDERED: amLODIPine 10 MG TAB PO SCH (10:00)
--- NOTE | 2020-03-27 20:46 | Discharge Summary ---
Providers - Providers Date of Admission: 03/21/20 21:29 Date of discharge: 03/22/20 Attending physician: SHELLY FRANCO Primary care physician: PATTIE KEANE Hospitalization Condition: Stable Hospital course: 34-year-old -[place] female with known history of sickle cell disease presented to the emergency room complaining of lower back and lower extremity pain for one day. Upon arrival in the emergency room patient had a fever of 102.1 F, tachycardic. Work-up was significant for white count of 16 and a reticulocyte count of 13. She was admitted for possible sepsis/SIRS and sickle cell crisis. Patient commenced on IV fluid and empiric IV antibiotics, hill Cx ordered, placed on analgesic medication and generous IV fluid hydration. Her h/H was stable. Her home pain meds resumed and reduced Dilaudid frequency from q2h to q4h as she was sleeping all day and was getting very drowsy. But she refused to stay even after counselling stating her fever has gone and left AMA. CXR: no infiltrates Discharge diagnosis; (1) Sepsis vs SIRS Patient commenced on IV fluid and empiric IV antibiotics. pending blood culture results. (2) Sickle cell anemia with crisis Patient has been placed on analgesic medication and generous IV fluid hydration. monitored CBC including reticulocyte count. (3) HTN (hypertension) resumed routine home medications, monitored vital signs closely. also placed on IV hydralazine as needed for blood pressure control. (4) Morbid obesity weight reduction diet and exercise recommended as outpt when clinically stable Disposition: DC-07 LEFT AGAINST MED ADVICE Core Measure Documentation - Palliative Care Palliative Care/ Comfort Measures: Not Applicable - Core Measures Any of the following diagnoses?: none Exam - Physical Exam Narrative exam: General appearance: Present: no acute distress, well-nourished - EENT Eyes: Present: PERRL, EOM intact ENT: hearing intact, clear oral mucosa, dentition normal - Neck Neck: Present: supple, normal ROM - Respiratory Respiratory effort: normal, other (Port on left anterior chest wall, no tenderness and no drainage around site) Respiratory: bilateral: CTA - Cardiovascular Rhythm: regular Heart Sounds: Present: S1 & S2, systolic murmur (soft systolic murmur.) - Extremities Extremities: no ischemia, pulses intact, pulses symmetrical, No edema, Full ROM Peripheral Pulses: within normal limits - Abdominal General gastrointestinal: Present: soft, non-tender, non-distended, normal bowel sounds - Integumentary Integumentary: Present: clear, warm, dry - Musculoskeletal Musculoskeletal: strength equal bilaterally - Psychiatric Psychiatric: appropriate mood/affect, intact judgment & insight, cooperative - Neurologic Neurologic: CNII-XII intact, moves all extremities - Constitutional Vitals: Temp Pulse Resp BP Pulse Ox 98.6 F 96 H 18 208/113 97 03/22/20 16:00 03/22/20 16:00 03/22/20 16:00 03/22/20 16:00 03/22/20 16:00 Plan Follow up with: PATTIE KEANE MD [Primary Care Provider] - 3-5 Days
== END 2020-03-22 15:30 | disposition left against medical advice (07) | DRG 871 ==
LOC: ED 13:46 → 4A 21:29
PROVIDERS: ADMIT Internal Medicine Geriatric Medicine; ATTEND Internal Medicine
DX: A41.9 Sepsis, unspecified organism (principal); D57.00 Hb-SS disease with crisis, unspecified; Z53.29 Procedure and treatment not carried out because of patient's decision for other reasons; I10 Essential (primary) hypertension; D64.9 Anemia, unspecified; Z90.49 Acquired absence of other specified parts of digestive tract; Z79.899 Other long term (current) drug therapy; Z88.5 Allergy status to narcotic agent
CPT/HCPCS: 36415; 71046; 80048; 80053; 81001; 82140; 83615; 84703; 85025; 85027; 85045; 85610; 85660; 87040; 87086; G0378; J1170; J1200; J1642; J1644; J1885; J2270; J2405; J2543; J3370; J7030; J7040

== ENCOUNTER 2020-04-01 13:04 | Emergency (ER) | payer MEDICAID ==
[2020-04-01] MEDS ORDERED: diphenhydrAMINE 50 MG/ML VIAL IV ONE (17:47)
[2020-04-01] MEDS ORDERED: HYDROmorphone 1 MG/1 ML INJ IV ONE ×2 (17:47→19:19)
[2020-04-01] MEDS ORDERED: ONDANSETRON 4 MG/2 ML INJ IV ONE (17:47)
[2020-04-01] MEDS ORDERED: diphenhydrAMINE 25 MG CAP PO ONE (18:16)
[2020-04-01] MEDS ORDERED: HYDROmorphone 2 MG/1 ML INJ IV ONE ×3 (18:16→20:09)
[2020-04-01] MEDS ORDERED: LISINOPRIL 40 MG TAB PO STA (18:17)
[2020-04-01] MEDS ORDERED: cloNIDine 0.2 MG TAB PO STA (18:17)
--- NOTE | 2020-04-01 18:18 | Emergency Department Report ---
ED General Adult HPI - General Chief complaint: Sickle Cell Crisis Stated complaint: SICKLE CELL CRISIS PUI?: No Time Seen by Provider: 04/01/20 17:59 Source: patient, RN notes reviewed, old records reviewed Mode of arrival: Ambulatory Limitations: No Limitations - History of Present Illness Initial comments: Patient is a 34-year-old female. I have evaluated this patient in the past. Her past medical history, includes hypertension, sickle cell, multiple ER visits, port She denies fever, cough, and coronavirus exposure. She presents to the ER today with her typical constellation of sickle cell pain, in her upper and lower extremities, and paralumbar region. Triggers include menstruation, today is her second day of menstruation. Her pain is sharp and aching, increases with palpation and range of motion, and it decreases with rest and hydromorphone. She also typically requests diphenhydramine or Benadryl. She states her sickle cell pain today is consistent with prior episodes of sickle cell pain and crisis. There is no complaint of headache, neck pain, chest pain, abdominal pain, cough or shortness of breath. She denies irritative/obstructive urinary symptoms -: Gradual, days(s) Location: back, left, right, upper extremity, lower extremity Severity scale (0 -10): 10 Consistency: constant Improves with: medication, rest Worsens with: movement - Related Data Home Medications Medication Instructions Recorded Confirmed Last Taken Methadone [Dolophine] 20 mg PO BID 03/19/19 03/22/20 08/18/19 Percocet 5/325 mg 10 mg PO PRN 01/29/20 03/22/20 01/28/20 Previous Rx's Medication Instructions Recorded Last Taken Type Folic Acid [Folvite] 1 mg PO DAILY #30 tablet 08/23/19 01/29/20 Rx Hydroxyurea 500 mg PO DAILY #30 cap 08/23/19 Unknown Rx amLODIPine 10 mg PO QDAY #30 tablet 08/23/19 01/28/20 Rx cloNIDine [Catapres] 0.2 mg PO BID #60 08/23/19 01/28/20 Rx lisinopriL [Zestril TAB] 40 mg PO QDAY #30 tablet 08/23/19 01/28/20 Rx Albuterol INH(or & Nicu Only) 2 puff IH QID PRN #1 inhalation 01/13/20 01/29/20 11:27 Rx [ProAir HFA Inhaler] Allergies Allergy/AdvReac Type Severity Reaction Status Date / Time morphine Allergy Shortness Verified 10/19/19 18:58 of Breath ED Review of Systems ROS: Stated complaint: SICKLE CELL CRISIS Other details as noted in HPI Constitutional: denies: fever Eyes: denies: eye discharge ENT: denies: congestion Respiratory: denies: cough Cardiovascular: denies: chest pain Gastrointestinal: denies: abdominal pain Genitourinary: denies: dysuria Musculoskeletal: back pain, arthralgia, myalgia Skin: denies: lesions Neurological: weakness. denies: headache, numbness, paresthesias, confusion Psychiatric: anxiety ED Past Medical Hx - Past Medical History Previous Medical History?: Yes Hx Hypertension: Yes Hx CVA: No Hx Heart Attack/AMI: No Hx Congestive Heart Failure: No Hx Diabetes: No Hx Deep Vein Thrombosis: No Hx Pulmonary Embolism: No Hx GERD: No Hx Liver Disease: No Hx Renal Disease: No Hx Sickle Cell Disease: Yes Hx Arthritis: Yes Hx Headaches / Migraines: No Hx Seizures: No Hx Kidney Stones: No Hx Psychiatric Treatment: No Hx Asthma: Yes Hx COPD: No Hx HIV: No Additional medical history: ANEMIA, multiple port infections - Surgical History Past Surgical History?: Yes Hx Cholecystectomy: Yes Additional Surgical History: , port removed June 2014. PICC line left upper arm (11/19/2014). . - Social History Smoking Status: Never Smoker Substance Use Type: None - Medications Home Medications: Home Medications Medication Instructions Recorded Confirmed Last Taken Type Methadone [Dolophine] 20 mg PO BID 03/19/19 03/22/20 08/18/19 History Folic Acid [Folvite] 1 mg PO DAILY #30 tablet 08/23/19 03/22/20 01/29/20 Rx Hydroxyurea 500 mg PO DAILY #30 cap 08/23/19 03/22/20 Unknown Rx amLODIPine 10 mg PO QDAY #30 tablet 08/23/19 03/22/20 01/28/20 Rx cloNIDine [Catapres] 0.2 mg PO BID #60 08/23/19 03/22/20 01/28/20 Rx lisinopriL [Zestril TAB] 40 mg PO QDAY #30 tablet 08/23/19 03/22/2020 Rx Albuterol INH(or & Nicu Only) 2 puff IH QID PRN #1 inhalation 01/13/20 03/22/20 01/29/20 11:27 Rx [ProAir HFA Inhaler] Percocet 5/325 mg 10 mg PO PRN 01/29/20 03/22/20 01/28/20 History ED Physical Exam - General Limitations: No Limitations General appearance: alert, anxious, in distress, obese - Head Head exam: Present: atraumatic, normocephalic - Eye Eye exam: Present: normal appearance, EOMI. Absent: nystagmus - ENT ENT exam: Present: normal exam, normal orophraynx, mucous membranes moist, normal external ear exam - Neck Neck exam: Present: normal inspection, full ROM. Absent: tenderness, meningismus - Respiratory Respiratory exam: Present: normal lung sounds bilaterally. Absent: respiratory distress - Cardiovascular Cardiovascular Exam: Present: regular rate, normal rhythm, normal heart sounds. Absent: bradycardia, tachycardia, irregular rhythm, systolic murmur, diastolic murmur, rubs, gallop - GI/Abdominal GI/Abdominal exam: Present: soft, normal bowel sounds. Absent: distended, tenderness, guarding, rebound, rigid, pulsatile mass - Extremities Exam Extremities exam: Present: normal inspection, full ROM, other (2+ pulses noted in the bilateral upper and lower extremities. There is no palpable cord. The pelvis is stable. Diffuse long bony tenderness noted in the bilateral lower extremities). Absent: calf tenderness - Back Exam Back exam: Present: normal inspection, full ROM, paraspinal tenderness. Absent: CVA tenderness (R), CVA tenderness (L) - Neurological Exam Neurological exam: Present: alert, other (No facial droop. Tongue midline. Extraocular movements intact bilaterally. Facial sensation intact to light touch in V1, V2, V3 distribution bilaterally. 5 and a 5 strength in 4 extremities. Sensation intact to light touch in 4 extremities.) - Psychiatric Psychiatric exam: Present: anxious - Skin Skin exam: Present: warm, dry, intact, normal color. Absent: rash ED Course Vital Signs 04/01/20 04/01/20 04/01/20 13:46 17:11 17:15 Temperature 98.7 F Pulse Rate 79 93 H 83 Respiratory 20 21 23 Rate Blood Pressure 211/83 Blood Pressure [Left] O2 Sat by Pulse 94 96 Oximetry 04/01/20 04/01/20 04/01/20 17:28 17:31 17:45 Temperature 98.6 F Pulse Rate 79 81 81 Respiratory 22 19 18 Rate Blood Pressure 179/97 179/97 Blood Pressure 179/97 [Left] O2 Sat by Pulse 98 96 97 Oximetry 04/01/20 04/01/20 04/01/20 18:01 18:15 18:21 Temperature Pulse Rate 78 94 H 81 Respiratory 20 18 Rate Blood Pressure 186/93 186/93 211/95 Blood Pressure [Left] O2 Sat by Pulse 96 97 Oximetry 04/01/20 04/01/20 04/01/20 18:31 18:45 19:01 Temperature Pulse Rate 104 H 85 82 Respiratory 28 H 24 21 Rate Blood Pressure 210/105 186/93 165/85 Blood Pressure [Left] O2 Sat by Pulse 97 93 Oximetry 04/01/20 04/01/20 04/01/20 19:11 19:12 19:15 Temperature Pulse Rate 101 H 96 H 94 H Respiratory 25 H Rate Blood Pressure 165/85 165/85 165/85 Blood Pressure [Left] O2 Sat by Pulse Oximetry 04/01/20 04/01/20 04/01/20 19:30 19:31 19:45 Temperature Pulse Rate 85 84 93 H Respiratory 16 18 18 Rate Blood Pressure 207/96 159/72 Blood Pressure 190/93 [Left] O2 Sat by Pulse 94 94 Oximetry 04/01/20 04/01/20 04/01/20 20:01 20:15 20:31 Temperature Pulse Rate 79 84 90 Respiratory 18 21 16 Rate Blood Pressure 144/62 144/62 150/73 Blood Pressure [Left] O2 Sat by Pulse 95 94 94 Oximetry - Reevaluation(s) Reevaluation #1: 04/01/20 19:20 Differential diagnosis, including but not limited to: Sickle cell pain, sickle cell crisis, chronic hypertension Assessment and plan: 34-year-old female with chronic hypertension, chronic epi sodes of sickle cell pain, who appears to be more uncomfortable and in distress than her baseline. Laboratory studies show leukocytosis, may be stress reaction, secondary to sickle cell pain, or all of the above. She also has an elevated reticulocyte count, which appears to be at the higher end of where the patient has placed reticulocyte count in the past. She is ordered for second dose of hydromorphone, and still appears to be uncomfortable. Her blood pressure is improved. We do anticipate that the patient may require admission at this time for acute sickle cell pain and crisis. Reevaluation #2: 04/01/20 21:08 The patient is reexamined. She has received multiple rounds of pain medicine. Her pain is much improved. She states that she feels much improved. She is asking to be discharged. I did discussed her laboratory findings with her. I did offer the patient admission. The patient prefers to be discharged. She is reliable to follow-up. Through shared decision making, we agreed to discharge the patient, with instructions to closely follow-up as an outpatient. ED Medical Decision Making - Lab Data Result diagrams: 04/01/20 18:22 04/01/20 18:22 Vital Signs 04/01/20 04/01/20 04/01/20 13:46 17:28 18:21 Temperature 98.7 F 98.6 F Pulse Rate 79 79 81 Respiratory 20 22 Rate Blood Pressure 211/83 211/95 Blood Pressure 179/97 [Left] O2 Sat by Pulse 94 98 Oximetry 04/01/20 04/01/20 19:11 19:12 Temperature Pulse Rate 101 H 96 H Respiratory Rate Blood Pressure 165/85 165/85 Blood Pressure [Left] O2 Sat by Pulse Oximetry Lab Results 04/01/20 04/01/20 04/01/20 Range/Units 18:22 18:22 18:22 WBC 18.6 H (4.5-11.0) K/mm3 RBC 2.65 L (3.65-5.03) M/mm3 Hgb 8.2 L (10.1-14.3) gm/dl Hct 25.0 L (30.3-42.9) % MCV 94 (79-97) fl MCH 31 (28-32) pg MCHC 33 (30-34) % RDW 24.3 H (13.2-15.2) % Plt Count 411 (140-440) K/mm3 Lymph # Top Stitcher Add Manual Diff Complete Total Counted 100 Seg Neuts % (Manual) 65.0 (40.0-70.0) % Band Neutrophils % 0 % Lymphocytes % (Manual) 21.0 (13.4-35.0) % Reactive Lymphs % (Man) 0 % Monocytes % (Manual) 6.0 (0.0-7.3) % Eosinophils % (Manual) 6.0 H (0.0-4.3) % Basophils % (Manual) 2.0 H (0.0-1.8) % Metamyelocytes % 0 % Myelocytes % 0 % Promyelocytes % 0 % Blast Cells % 0 % Nucleated RBC % 46.0 H (0.0-0.9) % Seg Neutrophils # Man 12.1 H (1.8-7.7) K/mm3 Band Neutrophils # 0.0 K/mm3 Lymphocytes # (Manual) 3.9 (1.2-5.4) K/mm3 Abs React Lymphs (Man) 0.0 K/mm3 Monocytes # (Manual) 1.1 H (0.0-0.8) K/mm3 Eosinophils # (Manual) 1.1 H (0.0-0.4) K/mm3 Basophils # (Manual) 0.4 H (0.0-0.1) K/mm3 Metamyelocytes # 0.0 K/mm3 Myelocytes # 0.0 K/mm3 Promyelocytes # 0.0 K/mm3 Blast Cells # 0.0 K/mm3 WBC Morphology Not Reportable Hypersegmented Neuts Not Reportable Hyposegmented Neuts Not Reportable Hypogranular Neuts Not Reportable Smudge Cells Not Reportable Toxic Granulation Not Reportable Toxic Vacuolation Not Reportable Dohle Bodies Not Reportable Pelger-Huet Anomaly Not Reportable Ariadne Rods Not Reportable Platelet Estimate Not Reportable Clumped Platelets Not Reportable Plt Clumps, EDTA Not Reportable Large Platelets Not Reportable Giant Platelets Not Reportable Platelet Satelliting Not Reportable Plt Morphology Comment Not Reportable RBC Morphology Not Reportable Dimorphic RBCs Not Reportable Polychromasia Not Reportable Hypochromasia 1+ Poikilocytosis Not Reportable Anisocytosis 1+ Microcytosis 1+ Macrocytosis Not Reportable Spherocytes Not Reportable Pappenheimer Bodies Not Reportable Sickle Cells 1+ Target Cells 1+ Tear Drop Cells Not Reportable Ovalocytes 1+ Helmet Cells Not Reportable [place] Bodies Not Reportable [place] Rings Not Reportable [place] Cells Not Reportable Bite Cells Not Reportable Crenated Cell Not Reportable Elliptocytes Not Reportable Acanthocytes (Spur) Not Reportable Rouleaux Not Reportable Hemoglobin C Crystals Not Reportable Schistocytes 1+ Malaria parasites Not Reportable Percent Retic 17.61 H (0.78-2.58) % Alexis Bodies Not Reportable Hem Pathologist Commnt No Sodium 139 (137-145) mmol/L Potassium 3.8 (3.6-5.0) mmol/L Chloride 106.8 (98-107) mmol/L Carbon Dioxide 20 L (22-30) mmol/L Anion Gap 16 mmol/L BUN 14 (7-17) mg/dL Creatinine 1.1 (0.7-1.2) mg/dL Estimated GFR > 60 ml/min BUN/Creatinine Ratio 13 % Glucose 109 H (65-100) mg/dL Calcium 9.4 (8.4-10.2) mg/dL Magnesium 1.80 (1.7-2.3) mg/dL Total Creatine Kinase 47 (30-135) units/L HCG, Quant < 2 (0-4) mIU/mL Critical care attestation.: If time is entered above; I have spent that time in minutes in the direct care of this critically ill patient, excluding procedure time. ED Disposition Clinical Impression: Sickle cell pain crisis, Hypertension Disposition: DC-01 TO HOME OR SELFCARE Is pt being admited?: No Does the pt Need Aspirin: No Condition: Stable Additional Instructions: Please continue current outpatient medications. 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 Please continue to take outpatient blood pressure medications. Please return to the emergency room right away with new pain, worsening pain, migration of pain, projectile vomiting, change in mental status, confusion, inability to tolerate liquid feeds, new, worsened or different symptoms not present on the initial emergency room evaluation. Please make certain to wash hands very thoroughly with soap and water. Do not touch hands to face, eyes, or mouth. Referrals: SEMAJ FLYNN DO [Staff Physician] - 3-5 Days SHAYE ESPINOZA MD [Staff Physician] - 3-5 Days
[2020-04-01 18:33] LABS: Hemoglobin 8.2 gm/dl (10.1-14.3); Mean Corpuscular HGB Conc 33 % (30-34); Mean Corpuscular Volume 94 fl (79-97); Platelet Count 411 K/mm3 (140-440); Red Blood Count 2.65 M/mm3 (3.65-5.03)
[2020-04-01 18:35] LABS: Red Cell Distribution Width 24.3 % (13.2-15.2)
[2020-04-01 18:52] LABS: BUN/Creatinine Ratio 13; Blood Urea Nitrogen 14 mg/dL (7-17); Calcium 9.4 mg/dL (8.4-10.2); Hemolysis Index 11
[2020-04-01] MEDS ORDERED: D5W/0.2% NACL 1,000 ML IV SCH (19:00)
[2020-04-01] MEDS ORDERED: amLODIPine 10 MG TAB PO SCH (19:00)
[2020-04-01 19:14] LABS: Anisocytosis 1+; Total Cells Counted 100
[2020-04-01 19:15] LABS: Hypochromasia 1+; Ovalocytes 1+; Schistocytes 1+; Sickle Cells 1+; Target Cells 1+
[2020-04-01 20:51] VITALS: BP 150/73
== END 2020-04-01 21:23 | disposition home or self-care (01) ==
LOC: ED 13:04
DX: D57.00 Hb-SS disease with crisis, unspecified (principal); I10 Essential (primary) hypertension; M19.91 Primary osteoarthritis, unspecified site; J45.909 Unspecified asthma, uncomplicated; Z90.49 Acquired absence of other specified parts of digestive tract; Z98.890 Other specified postprocedural states; Z79.899 Other long term (current) drug therapy; Z88.8 Allergy status to other drugs, medicaments and biological substances
CPT/HCPCS: 36415; 80048; 82550; 83735; 84702; 85007; 85025; 85045; 96374; 96375; 96376; 99284; J1170; J1200; J1642; J2405

== ENCOUNTER 2020-04-05 15:08 | Emergency (ER) | payer MEDICAID ==
[2020-04-05] MEDS ORDERED: HYDROmorphone 1 MG/1 ML INJ IV ONE ×3 (17:46→20:15)
[2020-04-05] MEDS ORDERED: KETOROLAC 30 MG/1 ML INJ IV ONE (17:46)
[2020-04-05] MEDS ORDERED: ONDANSETRON 4 MG/2 ML INJ IV ONE (17:46)
--- NOTE | 2020-04-05 17:53 | Emergency Department Report ---
HPI - General Chief Complaint: Sickle Cell Crisis PUI?: No Time Seen by Provider: 04/05/20 17:41 - HPI HPI: Room 40 The patient is a 34-year-old female present with a chief complaint of sickle cell pain crisis. Patient states her symptoms began yesterday and pain in her lower back and bilateral lower extremities consistent with a sickle cell pain crisis. Patient denies history of fever or dysuria. Patient gives her pain s core of 08/14. ED Past Medical Hx - Past Medical History Previous Medical History?: Yes Hx Hypertension: Yes Hx Sickle Cell Disease: Yes Hx Arthritis: Yes Hx Asthma: Yes Additional medical history: ANEMIA, multiple port infections - Surgical History Past Surgical History?: Yes Hx Cholecystectomy: Yes Additional Surgical History: , port removed June 2014. PICC line left upper arm (11/19/2014). . - Family History Family history: no significant - Social History Smoking Status: Never Smoker Substance Use Type: None (Denies illicit drug use) - Medications Home Medications: Home Medications Medication Instructions Recorded Confirmed Last Taken Type Methadone [Dolophine] 20 mg PO BID 03/19/19 03/22/20 08/18/19 History Folic Acid [Folvite] 1 mg PO DAILY #30 tablet 08/23/19 03/22/20 01/29/20 Rx Hydroxyurea 500 mg PO DAILY #30 cap 08/23/19 03/22/20 Unknown Rx amLODIPine 10 mg PO QDAY #30 tablet 08/23/19 03/22/20 01/28/20 Rx cloNIDine [Catapres] 0.2 mg PO BID #60 08/23/19 03/22/20 01/28/20 Rx lisinopriL [Zestril TAB] 40 mg PO QDAY #30 tablet 08/23/19 03/22/20 01/28/20 Rx Albuterol INH(or & Nicu Only) 2 puff IH QID PRN #1 inhalation 01/13/20 03/22/20 01/29/20 11:27 Rx [ProAir HFA Inhaler] Percocet 5/325 mg 10 mg PO PRN 01/29/20 03/22/20 01/28/20 History HYDROcodone/APAP 5-325 [[place] 1 - 2 each PO Q6HR PRN #10 tablet 04/05/20 Unknown Rx 5/325] ED Review of Systems ROS: Stated complaint: SICKLE CELL Other details as noted in HPI Constitutional: no symptoms reported. denies: fever Eyes: denies: eye pain ENT: denies: throat pain Respiratory: no symptoms reported Cardiovascular: denies: chest pain Endocrine: no symptoms reported Gastrointestinal: denies: abdominal pain Musculoskeletal: back pain, myalgia Hematological/Lymphatic: other (Sickle cell pain crisis) Physical Exam - Physical Exam Vital Signs: Vital Signs 04/05/20 04/05/20 15:53 15:55 Temperature 98.9 F Pulse Rate 88 Respiratory 20 Rate Blood Pressure 213/94 [Left] Blood Pressure 230/89 [Right] O2 Sat by Pulse 96 Oximetry Physical Exam: GENERAL: The patient is well-developed well-nourished female lying on stretcher not appearing to be in acute distress. [] HEENT: Normocephalic. Atraumatic. Extraocular motions are intact. Patient has moist mucous membranes. NECK: Supple. Trachea midline CHEST/LUNGS: Clear to auscultation. There is no respiratory distress noted. HEART/CARDIOVASCULAR: Regular. There is no tachycardia. There is no gallop rub or murmur. ABDOMEN: Abdomen is soft, nontender. Patient has normal bowel sounds. There is no abdominal distention. SKIN: There is no rash. There is no edema. There is no diaphoresis. NEURO: The patient is awake, alert, and oriented. The patient is cooperative. The patient has normal speech MUSCULOSKELETAL: There is no evidence of acute injury. ED Course Vital Signs 04/05/20 04/05/20 15:53 15:55 Temperature 98.9 F Pulse Rate 88 Respiratory 20 Rate Blood Pressure 213/94 [Left] Blood Pressure 230/89 [Right] O2 Sat by Pulse 96 Oximetry ED Medical Decision Making - Lab Data Result diagrams: 04/05/20 Unknown Laboratory Tests 04/05/20 04/05/20 04/05/20 20:17 Unknown Unknown WBC 14.5 H RBC 2.92 L Hgb 9.3 L Hct 28.3 L MCV 97 MCH 32 MCHC 33 RDW 24.4 H Plt Count 331 Add Manual Diff Complete Total Counted 100 Seg Neuts % (Manual) 65.0 Band Neutrophils % 0 Lymphocytes % (Manual) 24.0 Reactive Lymphs % (Man) 0 Monocytes % (Manual) 8.0 H Eosinophils % (Manual) 2.0 Basophils % (Manual) 1.0 Metamyelocytes % 0 Myelocytes % 0 Promyelocytes % 0 Blast Cells % 0 Nucleated RBC % 15.0 H Seg Neutrophils # Man 9.4 H Band Neutrophils # 0.0 Lymphocytes # (Manual) 3.5 Abs React Lymphs (Man) 0.0 Monocytes # (Manual) 1.2 H Eosinophils # (Manual) 0.3 Basophils # (Manual) 0.1 Metamyelocytes # 0.0 Myelocytes # 0.0 Promyelocytes # 0.0 Blast Cells # 0.0 WBC Morphology Not Reportable Hypersegmented Neuts Not Reportable Hyposegmented Neuts Not Reportable Hypogranular Neuts Not Reportable Smudge Cells Not Reportable Toxic Granulation Not Reportable Toxic Vacuolation Not Reportable Dohle Bodies Not Reportable Pelger-Huet Anomaly Not Reportable Ariadne Rods Not Reportable Platelet Estimate Not Reportable Clumped Platelets Not Reportable Plt Clumps, EDTA Not Reportable Large Platelets Not Reportable Giant Platelets Not Reportable Platelet Satelliting Not Reportable Plt Morphology Comment Not Reportable RBC Morphology Not Reportable Dimorphic RBCs Not Reportable Polychromasia Not Reportable Hypochromasia 1+ Poikilocytosis Not Reportable Anisocytosis 1+ Microcytosis 1+ Macrocytosis Not Reportable Spherocytes Not Reportable Pappenheimer Bodies Not Reportable Sickle Cells 1+ Target Cells 1+ Tear Drop Cells Not Reportable Ovalocytes 1+ Helmet Cells Not Reportable Walters-[place] Bodies Not Reportable [place] Rings Not Reportable [place] Cells Not Reportable Bite Cells Not Reportable Crenated Cell Not Reportable Elliptocytes Not Reportable Acanthocytes (Spur) Not Reportable Rouleaux Not Reportable Hemoglobin C Crystals Not Reportable Schistocytes 1+ Malaria parasites Not Reportable Percent Retic 16.23 H Alexis Bodies Not Reportable Hem Pathologist Commnt No HCG, Qual Negative Urine Color Yellow Urine Turbidity Clear Urine pH 6.0 Ur Specific [place] 1.010 Urine Protein >500 Urine Glucose (UA) Neg Urine Ketones Neg Urine Blood Neg Urine Nitrite Neg Urine Bilirubin Neg Urine Urobilinogen < 2.0 Ur Leukocyte Esterase Neg Urine WBC (Auto) 3.0 Urine RBC (Auto) 5.0 U Epithel Cells (Auto) 1.0 Urine Bacteria (Auto) 1+ - Differential Diagnosis Sickle cell pain crisis Critical care attestation.: If time is entered above; I have spent that time in minutes in the direct care of this critically ill patient, excluding procedure time. ED Disposition Clinical Impression: Sickle cell pain crisis Disposition: TO HOME OR SELFCARE Is pt being admited?: No Does the pt Need Aspirin: No Condition: Stable Instructions: Sickle Cell Crisis (ED) Additional Instructions: Return to the emergency department should you develop worsening symptoms, inability to tolerate food or liquids, high fever or any other concerns Prescriptions: HYDROcodone/APAP 5-325 [[place] 5/325] 1 - 2 each PO Q6HR PRN #10 tablet PRN Reason: Pain Referrals: PRIMARY CARE, [Primary Care Provider] - 3-5 Days Time of Disposition: 20:45
[2020-04-05] MEDS ORDERED: D5W/0.2% NACL 1,000 ML IV SCH (18:00)
[2020-04-05] MEDS ORDERED: diphenhydrAMINE 50 MG/ML VIAL IV ONE (18:15)
[2020-04-05] MEDS ORDERED: diphenhydrAMINE 50 MG/ML VIAL ONE (18:17)
[2020-04-05 18:22] LABS: Hematocrit 28.3 % (30.3-42.9); Hemoglobin 9.3 gm/dl (10.1-14.3); Mean Corpuscular HGB Conc 33 % (30-34); Mean Corpuscular Volume 97 fl (79-97); Platelet Count 331 K/mm3 (140-440); Red Blood Count 2.92 M/mm3 (3.65-5.03)
[2020-04-05 18:24] LABS: Red Cell Distribution Width 24.4 % (13.2-15.2)
[2020-04-05 19:06] LABS: Total Cells Counted 100
[2020-04-05 19:07] LABS: Anisocytosis 1+; Hypochromasia 1+; Ovalocytes 1+; Schistocytes 1+; Sickle Cells 1+; Target Cells 1+
[2020-04-05] MEDS ORDERED: cloNIDine 0.2 MG TAB PO ONE (19:09)
[2020-04-05 20:36] LABS: Bacteria,Urine 1+ /HPF (Negative); Bilirubin,Urine NEG (Negative); Blood,Urine NEG (Negative); Color,Urine Yellow (Yellow); Urobilinogen,Urine < 2.0 mg/dL (<2.0)
[2020-04-05 20:37] LABS: Protein,Urine >500 mg/dL (Negative)
[2020-04-05 21:14] VITALS: BP 200/97
== END 2020-04-05 21:16 | disposition home or self-care (01) ==
LOC: ED 15:08
DX: D57.00 Hb-SS disease with crisis, unspecified (principal); I10 Essential (primary) hypertension; M19.91 Primary osteoarthritis, unspecified site; J45.909 Unspecified asthma, uncomplicated; Z90.49 Acquired absence of other specified parts of digestive tract; Z98.890 Other specified postprocedural states; Z79.899 Other long term (current) drug therapy; Z88.8 Allergy status to other drugs, medicaments and biological substances
CPT/HCPCS: 36415; 81001; 84703; 85007; 85025; 85045; 96374; 96375; 96376; 99283; J1170; J1200; J1642; J1885; J2405

== ENCOUNTER 2020-05-03 14:41 | Emergency (ER) | payer MEDICAID ==
[2020-05-03 16:13] VITALS: BP 181/93
== END 2020-05-03 18:44 | disposition left against medical advice (07) ==
LOC: ED 14:41
DX: D57.1 Sickle-cell disease without crisis (principal); Z53.21 Procedure and treatment not carried out due to patient leaving prior to being seen by health care provider

== ENCOUNTER → 2020-05-13 | Emergency (ER) | payer MEDICAID ==
[~2020-05-13] MED LIST: ACETAMINOPHEN 325 MG TAB PO PRN; D5W/0.2% NACL 1,000 ML IV SCH; ETOMIDATE 20 MG/10 ML INJ IV ONE; FOLIC ACID 1 MG TAB PO SCH; HYDROXYUREA 500 MG CAP PO SCH; HYDROcodone/ACETAMINOPHEN 5-325 MG TAB PO PRN; HYDROmorphone 2 MG/1 ML INJ IV ONE; KETOROLAC 30 MG/1 ML INJ IV ONE; LISINOPRIL 20 MG TAB PO ONE; LISINOPRIL 40 MG TAB PO SCH; METHADONE 10 MG TAB PO SCH; ONDANSETRON 4 MG/2 ML INJ IV ONE; ONDANSETRON 4 MG/2 ML INJ IV PRN; ROCURONIUM 50 MG/5 ML INJ IV ONE; SODIUM CHLORIDE 0.9% 1000 ML 1,000 ML IV SCH; SODIUM CHLORIDE 0.9% 1000 ML 3,000 ML IV ONE; VANCOMYCIN 1,500 MG in SODIUM CHLORIDE 0.9% 500 ML 500 ML IV SCH; VANCOMYCIN 2,000 MG in SODIUM CHLORIDE 0.9% 500 ML 500 ML IV ONE; VANCOMYCIN/NS 1 GM/250 ML 1 GM/250 ML BAG IV ONE; amLODIPine 10 MG TAB PO SCH; amLODIPine 5 MG TAB PO ONE; cloNIDine 0.2 MG TAB PO ONE; cloNIDine 0.2 MG TAB PO SCH; diphenhydrAMINE 50 MG/ML VIAL IV ONE; hydrALAZINE 20 MG/1 ML INJ IV PRN
--- NOTE | 2020-05-13 10:33 | Emergency Department Report ---
ED General Adult HPI - General Chief complaint: Sickle Cell Crisis Stated complaint: SICKLE CELL Time Seen by Provider: 05/13/20 10:04 Source: patient Mode of arrival: Ambulatory Limitations: No Limitations - History of Present Illness Initial comments: 34-year-old female with a past medical history of asthma, hypertension, sickle cell disease, and the multiple ER visits for sickle cell crisis presents to the hospital complaints of generalized muscle skeletal pain secondary to crisis. Pain is worse in the back and the legs. Patient is currently on methadone and Percocet 10 mg for pain. She states pain is typical of sickle cell crisis. She denies fever, dysuria, chest pain, shortness of breath, or abdominal pain. Patient presents with elevated blood pressure and states that she is on her menstrual cycle which causes her to vomit. Patient had 2 episodes of vomiting this a.m. and therefore cannot tolerate for clonidine 0.2 mg, lisinopril 40 mg, and Norvasc 10 mg for her blood pressure. - Related Data Home Medications Medication Instructions Recorded Confirmed Last Taken Methadone [Dolophine] 20 mg PO BID 03/19/19 03/22/20 08/18/19 Percocet 5/325 mg 10 mg PO PRN 01/29/20 03/22/20 01/28/20 Previous Rx's Medication Instructions Recorded Last Taken Type Folic Acid [Folvite] 1 mg PO DAILY #30 tablet 08/23/19 01/29/20 Rx Hydroxyurea 500 mg PO DAILY #30 cap 08/23/19 Unknown Rx amLODIPine 10 mg PO QDAY #30 tablet 08/23/19 01/28/20 Rx cloNIDine [Catapres] 0.2 mg PO BID #60 08/23/19 01/28/20 Rx lisinopriL [Zestril TAB] 40 mg PO QDAY #30 tablet 08/23/19 01/28/20 Rx Albuterol Mdi (or & Nicu Only) 2 puff IH QID PRN #1 inhalation 01/13/20 01/29/20 11:27 Rx [ProAir HFA Inhaler] HYDROcodone/APAP 5-325 [[place] 1 - 2 each PO Q6HR PRN #10 tablet 04/05/20 Unknown Rx 5/325] Allergies Allergy/AdvReac Type Severity Reaction Status Date / Time morphine Allergy Shortness Verified 04/28/20 13:00 of Breath ED Review of Systems ROS: Stated complaint: SICKLE CELL Other details as noted in HPI Comment: All other systems reviewed and negative ED Past Medical Hx - Past Medical History Previous Medical History?: Yes Hx Hypertension: Yes Hx Sickle Cell Disease: Yes Hx Arthritis: Yes Hx Asthma: Yes Additional medical history: ANEMIA, multiple port infections - Surgical History Past Surgical History?: Yes Hx Cholecystectomy: Yes Additional Surgical History: , port removed June 2014. PICC line left upper arm (11/19/2014). . - Social History Smoking Status: Never Smoker Substance Use Type: None - Medications Home Medications: Home Medications Medication Instructions Recorded Confirmed Last Taken Type Methadone [Dolophine] 20 mg PO BID 03/19/19 03/22/20 08/18/19 History Folic Acid [Folvite] 1 mg PO DAILY #30 tablet 08/23/19 03/22/20 01/29/20 Rx Hydroxyurea 500 mg PO DAILY #30 cap 08/23/19 03/22/20 Unknown Rx amLODIPine 10 mg PO QDAY #30 tablet 08/23/19 03/22/20 01/28/20 Rx cloNIDine [Catapres] 0.2 mg PO BID #60 08/23/19 03/22/20 01/28/20 Rx lisinopriL [Zestril TAB] 40 mg PO QDAY #30 tablet 08/23/19 03/22/20 01/28/20 Rx Albuterol Mdi (or & Nicu Only) 2 puff IH QID PRN #1 inhalation 01/13/20 03/22/20 01/29/20 11:27 Rx [ProAir HFA Inhaler] Percocet 5/325 mg 10 mg PO PRN 01/29/20 03/22/20 01/28/20 History HYDROcodone/APAP 5-325 [[place] 1 - 2 each PO Q6HR PRN #10 tablet 04/05/20 Unknown Rx 5/325] ED Physical Exam - General Limitations: No Limitations - Other Other exam information: General: No acute distress Head: Atraumatic Eyes: normal appearance ENT: Moist mucous membranes Neck: Normal appearance, no midline tenderness Chest: Clear to auscultation bilaterally CV: Regular rate and rhythm Abdomen: Soft, normal bowel sounds, nontender, nondistended, no rebound or guarding Back: Generalized lumbar tenderness Extremity: Normal inspection, full range of motion Neuro: Alert O x 3, no facial asymmetry, speech clear, no gross motor sensory deficit Psych: Appropriate behavior Skin: No rash ED Course Vital Signs 05/13/20 05/13/20 05/13/20 09:09 11:06 11:14 Temperature 98.2 F Pulse Rate 94 H 95 H Respiratory 16 Rate Blood Pressure 205/106 216/110 Blood Pressure [Left] O2 Sat by Pulse 92 93 Oximetry 05/13/20 05/13/20 05/13/20 11:15 11:16 11:30 Temperature Pulse Rate 94 H 93 H Respiratory 16 Rate Blood Pressure 216/110 216/110 216/110 Blood Pressure 216/110 [Left] O2 Sat by Pulse 92 91 Oximetry 05/13/20 05/13/20 05/13/20 11:46 11:49 12:00 Temperature Pulse Rate Respiratory 18 Rate Blood Pressure 189/103 189/103 Blood Pressure [Left] O2 Sat by Pulse 91 92 Oximetry 05/13/20 05/13/20 05/13/20 12:16 12:30 12:46 Temperature Pulse Rate Respiratory Rate Blood Pressure 176/90 176/90 141/80 Blood Pressure [Left] O2 Sat by Pulse 88 87 88 Oximetry 05/13/20 05/13/20 05/13/20 13:00 13:16 13:30 Temperature Pulse Rate Respiratory Rate Blood Pressure 141/80 159/81 159/81 Blood Pressure [Left] O2 Sat by Pulse 91 92 94 Oximetry 05/13/20 05/13/20 05/13/20 13:46 14:00 14:16 Temperature Pulse Rate Respiratory Rate Blood Pressure 143/78 143/78 128/74 Blood Pressure [Left] O2 Sat by Pulse 88 94 93 Oximetry ED Medical Decision Making - Lab Data Result diagrams: 05/13/20 10:46 05/13/20 10:46 Lab Results 05/13/20 05/13/20 05/13/20 Range/Units 10:46 10:46 10:46 WBC 20.2 H (4.5-11.0) K/mm3 RBC 3.15 L (3.65-5.03) M/mm3 Hgb 9.4 L (10.1-14.3) gm/dl Hct 29.3 L (30.3-42.9) % MCV 93 (79-97) fl MCH 30 (28-32) pg MCHC 32 (30-34) % RDW 19.6 H (13.2-15.2) % Plt Count 509 H (140-440) K/mm3 Lymph % (Auto) Integration Engineer [place] % (Auto) Integration Engineer Eos % (Auto) Integration Engineer Baso % (Auto) Integration Engineer Lymph # Integration Engineer [place] # Integration Engineer Eos # Integration Engineer Baso # Integration Engineer Add Manual Diff Complete Total Counted 100 Seg Neutrophils % Integration Engineer Seg Neuts % (Manual) 75.0 H (40.0-70.0) % Band Neutrophils % 3.0 % Lymphocytes % (Manual) 14.0 (13.4-35.0) % Reactive Lymphs % (Man) 0 % Monocytes % (Manual) 6.0 (0.0-7.3) % Eosinophils % (Manual) 2.0 (0.0-4.3) % Basophils % (Manual) 0 (0.0-1.8) % Metamyelocytes % 0 % Myelocytes % 0 % Promyelocytes % 0 % Blast Cells % 0 % Nucleated RBC % 11.0 H (0.0-0.9) % Seg Neutrophils # Integration Engineer Seg Neutrophils # Man 0.0 L (1.8-7.7) K/mm3 Band Neutrophils # 0.0 K/mm3 Lymphocytes # (Manual) 0.0 L (1.2-5.4) K/mm3 Abs React Lymphs (Man) 0.0 K/mm3 Monocytes # (Manual) 0.0 (0.0-0.8) K/mm3 Eosinophils # (Manual) 0.0 (0.0-0.4) K/mm3 Basophils # (Manual) 0.0 (0.0-0.1) K/mm3 Metamyelocytes # 0.0 K/mm3 Myelocytes # 0.0 K/mm3 Promyelocytes # 0.0 K/mm3 Blast Cells # 0.0 K/mm3 WBC Morphology Not Reportable Hypersegmented Neuts Not Reportable Hyposegmented Neuts Not Reportable Hypogranular Neuts Not Reportable Smudge Cells Not Reportable Toxic Granulation Not Reportable Toxic Vacuolation Not Reportable Dohle Bodies Not Reportable Pelger-Huet Anomaly Not Reportable Ariadne Rods Not Reportable Platelet Estimate Consistent w auto Clumped Platelets Not Reportable Plt Clumps, EDTA Not Reportable Large Platelets Not Reportable Giant Platelets Rare Platelet Satelliting Not Reportable Plt Morphology Comment Not Reportable RBC Morphology Not Reportable Dimorphic RBCs Not Reportable Polychromasia 1+ Hypochromasia Not Reportable Poikilocytosis Not Reportable Anisocytosis 3+ Microcytosis Not Reportable Macrocytosis Not Reportable Spherocytes Not Reportable Pappenheimer Bodies Not Reportable Sickle Cells 1+ Target Cells 1+ Tear Drop Cells Not Reportable Ovalocytes Not Reportable Helmet Cells Not Reportable [place] Bodies Not Reportable [place] Rings Not Reportable Betsy Cells Not Reportable Bite Cells Not Reportable Crenated Cell Not Reportable Elliptocytes Not Reportable Acanthocytes (Spur) Not Reportable Rouleaux Not Reportable Hemoglobin C Crystals Not Reportable Schistocytes Not Reportable Malaria parasites Not Reportable Percent Retic 16.12 H (0.78-2.58) % Alexis Bodies Not Reportable Hem Pathologist Commnt No Sodium 139 (137-145) mmol/L Potassium 4.5 (3.6-5.0) mmol/L Chloride 104.9 (98-107) mmol/L Carbon Dioxide 21 L (22-30) mmol/L Anion Gap 18 mmol/L BUN 14 (7-17) mg/dL Creatinine 1.1 (0.7-1.2) mg/dL Estimated GFR > 60 ml/min BUN/Creatinine Ratio 13 % Glucose 109 H (65-100) mg/dL Calcium 8.9 (8.4-10.2) mg/dL Total Bilirubin 2.00 H (0.1-1.2) mg/dL AST 26 (5-40) units/L ALT 31 (7-56) units/L Alkaline Phosphatase 173 H (35-129) units/L Total Protein 6.6 (6.3-8.2) g/dL Albumin 3.7 L (3.9-5) g/dL Albumin/Globulin Ratio 1.3 % HCG, Qual Negative (Negative) - Medical Decision Making Patient received treatment for sickle pain crisis he continues to have pain despite aggressive ED treatment and IV fluids. Patient also has increasing leukocytosis And elevated reticulocyte count. Patient's BP initially elevated because she cannot tolerate her meds at home. BP improved with her home medication dose was provided here in the ED. She will be admitted due to persistent pain. Case discussed with hospice Critical Care Time: No Critical care attestation.: If time is entered above; I have spent that time in minutes in the direct care of this critically ill patient, excluding procedure time. ED Disposition Clinical Impression: Anemia, sickle cell with crisis, Leukocytosis, HTN (hypertension) Disposition: OP ADMIT IP TO THIS HOSP Is pt being admited?: Yes Condition: Stable Time of Disposition: 15:17 (Dr abad/hosp)
[2020-05-13 11:26] LABS: Alanine Aminotransferase 31 units/L (7-56); Albumin 3.7 g/dL (3.9-5); BUN/Creatinine Ratio 13; Blood Urea Nitrogen 14 mg/dL (7-17); Calcium 8.9 mg/dL (8.4-10.2); Hemolysis Index 22
[2020-05-13 14:07] LABS: Hematocrit 29.3 % (30.3-42.9); Hemoglobin 9.4 gm/dl (10.1-14.3); Mean Corpuscular HGB Conc 32 % (30-34); Mean Corpuscular Volume 93 fl (79-97); Red Blood Count 3.15 M/mm3 (3.65-5.03); Red Cell Distribution Width 19.6 % (13.2-15.2)
[2020-05-13 15:08] LABS: Anisocytosis 3+; Basophils % (Manual) 0 % (0.0-1.8); Sickle Cells 1+; Total Cells Counted 100
[2020-05-13 15:09] LABS: Giant Platelets Rare; Platelet Estimate Consistent w Auto; Target Cells 1+
[2020-05-13 15:10] LABS: Platelet Count 509 K/mm3 (140-440)
--- NOTE | 2020-05-13 17:01 | History and Physical Report ---
History of Present Illness Chief complaint: Im hurting all over History of present illness: 34 YO Female with SCD, HTN, OA, Asthma, Narcotic Abuse, Opioid Dependence currently on Methadone presents to ED for evaluation. Pt states that she has experienced pain "all over her body" but mostly in the Back, and Legs. Pt states that pain is 10/10, constant. Pt states that her pain is not relieved with her regular dosing of Percocet and Methadone. Pt transported to [facility] via private vehicle. Pt seen and evaluated in ED. Pt denies fever, chills, CP, palpitations, shortness of breath, skin rash, hemoptysis, or recent ill contacts, or known exposure to COVID-19. Pt seen and evaluated in ED and found to have SCD Crisis as well as accelerated hypertension. Patient treated with IVF resuscitation and supportive care due to increased risk of worsening symptoms. Patient also treated with antihypertensive therapy. Patient placed in observation status and admitted admitted to medical floor. Prior admission on 03/21/2020 reviewed. All listed medication reconciled at time of admission. Advanced care planning conducted in ED. Past History Past Medical History: hypertension, other (See HPI) Past Surgical History: cholecystectomy, Other (, port removed June 2014. PICC line left upper arm (11/19/2014). ) Social history: single. denies: smoking, alcohol abuse, prescription drug abuse Family history: hypertension, other (Sickle cell disease) Medications and Allergies Allergies Allergy/AdvReac Type Severity Reaction Status Date / Time morphine Allergy Shortness Verified 04/28/20 13:00 of Breath Home Medications Medication Instructions Recorded Confirmed Last Taken Type Methadone [Dolophine] 20 mg PO BID 03/19/19 03/22/20 08/18/19 History Folic Acid [Folvite] 1 mg PO DAILY #30 tablet 08/23/19 03/22/20 01/29/20 Rx Hydroxyurea 500 mg PO DAILY #30 cap 08/23/19 03/22/20 Unknown Rx amLODIPine 10 mg PO QDAY #30 tablet 08/23/19 03/22/20 01/28/20 Rx cloNIDine [Catapres] 0.2 mg PO BID #60 08/23/19 03/22/20 01/28/20 Rx lisinopriL [Zestril TAB] 40 mg PO QDAY #30 tablet 08/23/19 03/22/20 01/28/20 Rx Albuterol Mdi (or & Nicu Only) 2 puff IH QID PRN #1 inhalation 01/13/20 03/22/20 01/29/20 11:27 Rx [ProAir HFA Inhaler] Percocet 5/325 mg 10 mg PO PRN 01/29/20 03/22/20 01/28/20 History HYDROcodone/APAP 5-325 [[place] 1 - 2 each PO Q6HR PRN #10 tablet 04/05/20 Unknown Rx 5/325] Active Meds: Active Medications Dextrose/Sodium Chloride (D5ns 0.2%) 1,000 mls @ 250 mls/hr IV DIRECT CARIE Last Admin: 05/13/20 11:47 Dose: 250 mls/hr Documented by: Sodium Chloride (Nacl 0.9% 1000 Ml) 3,000 mls @ 999 mls/hr IV BOLUS ONE Stop: 05/13/20 18:27 Last Admin: 05/13/20 15:59 Dose: 999 mls/hr Documented by: Review of Systems Constitutional: chronic pain, no weight loss, no weight gain, no fever, no chills Ears, nose, mouth and throat: no ear pain, no ear discharge, no tinnitis, no decreased hearing, no nose pain Cardiovascular: no orthopnea, no palpitations, no rapid/irregular heart beat, no shortness of breath Respiratory: no cough, no cough with sputum, no excessive sputum, no hemoptysis Gastrointestinal: no abdominal pain, no nausea, no vomiting, no diarrhea Genitourinary Female: no menorrhagia, no dysuria, no urinary frequency, no urgency Rectal: no incontinence, no bleeding Musculoskeletal: no neck stiffness, no atrophy, no limitation of motion Integumentary: no rash, no pruritis, no redness, no sores, no wounds Neurological: no paralysis, no weakness, no parathesias, no numbness, no tingling Psychiatric: no memory loss, no change in sleep habits, no sleep disturbances, no insomnia, no change in appetite, no change in libido, no suicidal ideation Endocrine: no cold intolerance, no excessive thirst, no polydipsia, no nocturia Hematologic/Lymphatic: no easy bruising, no easy bleeding, no lymphadenopathy, no lymphedema Allergic/Immunologic: no urticaria, no wheezing, no anaphylaxis Exam - Constitutional Vitals: Temp Pulse Resp BP Pulse Ox 98.2 F 86 20 149/91 92 05/13/20 09:09 05/13/20 16:00 05/13/20 16:00 05/13/20 16:00 05/13/20 16:00 General appearance: Present: mild distress, obese - EENT Eyes: Present: PERRL ENT: hearing intact, clear oral mucosa - Neck Neck: Present: supple, normal ROM - Respiratory Respiratory effort: normal Respiratory: bilateral: CTA - Cardiovascular Heart Sounds: Present: S1 & S2. Absent: rub, click - Extremities Extremities: pulses symmetrical, No edema Peripheral Pulses: within normal limits - Abdominal General gastrointestinal: Present: soft, non-tender, non-distended, normal bowel sounds Female genitourinary: Present: normal - Integumentary Integumentary: Present: clear, warm, dry - Musculoskeletal Musculoskeletal: gait normal, strength equal bilaterally - Psychiatric Psychiatric: appropriate mood/affect, intact judgment & insight - Neurologic Neurologic: CNII-XII intact, moves all extremities Results - Labs CBC & Chem 7: 05/13/20 10:46 05/13/20 10:46 Labs: Abnormal lab results 05/13/20 05/13/20 Range/Units 10:46 10:46 WBC 20.2 H (4.5-11.0) K/mm3 RBC 3.15 L (3.65-5.03) M/mm3 Hgb 9.4 L (10.1-14.3) gm/dl Hct 29.3 L (30.3-42.9) % RDW 19.6 H (13.2-15.2) % Plt Count 509 H (140-440) K/mm3 Seg Neuts % (Manual) 75.0 H (40.0-70.0) % Nucleated RBC % 11.0 H (0.0-0.9) % Seg Neutrophils # Man 0.0 L (1.8-7.7) K/mm3 Lymphocytes # (Manual) 0.0 L (1.2-5.4) K/mm3 Percent Retic 16.12 H (0.78-2.58) % Carbon Dioxide 21 L (22-30) mmol/L Glucose 109 H (65-100) mg/dL Total Bilirubin 2.00 H (0.1-1.2) mg/dL Alkaline Phosphatase 173 H (35-129) units/L Albumin 3.7 L (3.9-5) g/dL Assessment and Plan - Patient Problems (1) Sickle cell anemia with crisis Current Visit: Yes Status: Acute Plan to address problem: IV fluid resuscitation therapy, CBC, CMP, reticulocyte count, pain control, (2) Obesity hypoventilation syndrome Current Visit: Yes Status: Acute Plan to address problem: Supplemental oxygen, nebulizer therapy, pulse oximetry, noninvasive positive pressure ventilation as clinically indicated. (3) Leukocytosis Onset Date: 03/03/16 Current Visit: Yes Status: Acute Plan to address problem: Empiric IV antibiotic x1 dose, supportive care, repeat CBC in a.m. (4) DVT prophylaxis Current Visit: Yes Status: Acute Plan to address problem: SCD to bilateral lower extremities while in bed, patient is ambulatory (5) Advance care planning Current Visit: Yes Status: Acute Plan to address problem: Disease education conducted, patient is full code, patient knowledges understanding and agreement with care plan. +30 minutes.
[2020-05-13 18:21] VITALS: BP 151/73
== END | disposition admitted as inpatient to this hospital (09) ==
LOC: ED 09:00
DX: D57.00 Hb-SS disease with crisis, unspecified (principal); D72.829 Elevated white blood cell count, unspecified; I10 Essential (primary) hypertension; M19.90 Unspecified osteoarthritis, unspecified site; J45.909 Unspecified asthma, uncomplicated; Z98.890 Other specified postprocedural states; Z79.899 Other long term (current) drug therapy; Z88.6 Allergy status to analgesic agent
CPT/HCPCS: 36415; 80053; 84703; 85007; 85025; 85045; 96374; 96375; 96376; 99285; J1170; J1200; J1642; J1885; J2405; J3370; J7030; J7040

== ENCOUNTER 2020-06-10 12:21 | Emergency (ER) | payer MEDICAID ==
[2020-06-10] MEDS ORDERED: SODIUM CHLORIDE 0.9% 1000 ML 1,000 ML IV ONE (15:06)
[2020-06-10] MEDS ORDERED: diphenhydrAMINE 50 MG/ML VIAL IV ONE ×2 (15:10→18:17)
[2020-06-10] MEDS ORDERED: HYDROmorphone 2 MG/1 ML INJ IV ONE ×3 (15:10→18:17)
--- NOTE | 2020-06-10 15:28 | Emergency Department Report ---
HPI - General Chief Complaint: Sickle Cell Crisis Time Seen by Provider: 06/10/20 15:01 - HPI HPI: This is a 34-year-old female, who is well-known to myself in this department, who presents to the emergency department today with low back pain that is cons istent with her sickle cell pain crisis. It has been going on since yesterday. She denies any problems with bowel or bladder, numbness or paresthesias, or neurological deficits. She also denies any chest pain, fever, shortness of breath, nausea, vomiting. She has been taking her hydroxyurea, folic acid, and home pain medication without any relief. She follows with Dr. Keane for hematology. No recent travel or sick contacts at home. ED Past Medical Hx - Past Medical History Hx Hypertension: Yes Hx Sickle Cell Disease: Yes Hx Arthritis: Yes Hx Asthma: Yes Additional medical history: ANEMIA, multiple port infections - Surgical History Hx Cholecystectomy: Yes Additional Surgical History: , port removed June 2014. PICC line left upper arm (11/19/2014). . - Social History Smoking Status: Never Smoker - Medications Home Medications: Home Medications Medication Instructions Recorded Confirmed Last Taken Type Methadone [Dolophine] 20 mg PO BID 03/19/19 03/22/20 08/18/19 History Folic Acid [Folvite] 1 mg PO DAILY #30 tablet 08/23/19 03/22/20 01/29/20 Rx Hydroxyurea 500 mg PO DAILY #30 cap 08/23/19 03/22/20 Unknown Rx amLODIPine 10 mg PO QDAY #30 tablet 08/23/19 03/22/20 01/28/20 Rx cloNIDine [Catapres] 0.2 mg PO BID #60 08/23/19 03/22/20 01/28/20 Rx lisinopriL [Zestril TAB] 40 mg PO QDAY #30 tablet 08/23/19 03/22/20 01/28/20 Rx Albuterol Mdi (or & Nicu Only) 2 puff IH QID PRN #1 inhalation 01/13/20 03/22/20 01/29/20 11:27 Rx [ProAir HFA Inhaler] Percocet 5/325 mg 10 mg PO PRN 01/29/20 03/22/20 01/28/20 History HYDROcodone/APAP 5-325 [[place] 1 - 2 each PO Q6HR PRN #10 tablet 04/05/20 Unknown Rx 5/325] ED Review of Systems ROS: Stated complaint: SICKLE CELL Other details as noted in HPI Comment: All other systems reviewed and negative Constitutional: denies: chills, fever Eyes: denies: eye pain, vision change ENT: denies: ear pain, throat pain Respiratory: denies: cough, shortness of breath Cardiovascular: denies: chest pain, palpitations Gastrointestinal: denies: abdominal pain, vomiting Genitourinary: denies: dysuria, discharge Musculoskeletal: back pain. denies: arthralgia Skin: denies: rash, lesions Neurological: denies: headache, weakness, numbness Physical Exam - Physical Exam Vital Signs: Vital Signs 06/10/20 12:38 Temperature 98.3 F Pulse Rate 62 Respiratory 20 Rate Blood Pressure 129/58 O2 Sat by Pulse 98 Oximetry Physical Exam: GENERAL: The patient is well-developed well-nourished. HENT: Normocephalic. Atraumatic. Patient has moist mucous membranes. EYES: Extraocular motions are intact. NECK: Supple. Trachea is midline. CHEST/LUNGS: Clear to auscultation. There is no respiratory distress noted. HEART/CARDIOVASCULAR: Regular. There is no tachycardia. ABDOMEN: Abdomen is soft, nontender. Patient has normal bowel sounds. SKIN: Skin is warm and dry. NEURO: The patient is awake, alert, and oriented. The patient is cooperative. The patient has no focal neurologic deficits. Normal speech. MUSCULOSKELETAL: There is no tenderness or deformity. There is no limitation range of motion. BACK: No midline thoracic or lumbar tenderness to palpation, step-off or deformity. There is reproducible lumbar paraspinal tenderness to palpation bilaterally. ED Course Vital Signs 06/10/20 12:38 Temperature 98.3 F Pulse Rate 62 Respiratory 20 Rate Blood Pressure 129/58 O2 Sat by Pulse 98 Oximetry ED Medical Decision Making - Lab Data Result diagrams: 06/10/20 15:35 06/10/20 15:35 - Medical Decision Making This patient presents with the complaint of low back pain that is consistent with her previous sickle cell pain crisis. She denies any problems with bowel or bladder, numbness or paresthesias, or any neurological deficits. On examination there is no midline thoracic or lumbar tenderness to palpation or deformity. Hemoglobin is 8.4, reticulocyte count of 5.1, and both of these values are either better than or consistent with previous visits. She was given multiple doses of IV analgesia with great improvement. Her vital signs been reassuring throughout her ED course including being afebrile. She has good outpatient follow-up with primary care and hematology. She was discharged home, picked up by her mother, and will return to the ER with any worsening of her symptoms or with any acute distress. The patient was seen ambulatory in the emergency department and both appears and feels stable. Critical Care Time: No Critical care attestation.: If time is entered above; I have spent that time in minutes in the direct care of this critically ill patient, excluding procedure time. ED Disposition Clinical Impression: Anemia, sickle cell with crisis, Sickle cell pain crisis Disposition: TO HOME OR SELFCARE Is pt being admited?: No Condition: Stable Instructions: Sickle Cell Crisis (ED), Back Pain (ED) Additional Instructions: Please follow-up with your primary care physician and pre owned sales manager in the next few days. Return to the emergency department with any worsening of your symptoms or with any acute distress. Referrals: PATTIE KEANE MD [Primary Care Provider] - 2-3 Days
[2020-06-10] MEDS ORDERED: ONDANSETRON 4 MG/2 ML INJ IV ONE (15:41)
[2020-06-10 16:04] LABS: BUN/Creatinine Ratio 21; Blood Urea Nitrogen 25 mg/dL (7-17); Calcium 9.1 mg/dL (8.4-10.2); Hemolysis Index 6
[2020-06-10 16:05] LABS: Basophils # (Auto) 0.1 K/mm3 (0.0-0.1); Eosinophils # (Auto) 0.5 K/mm3 (0.0-0.4); Eosinophils % (Auto) 3.8 % (0.0-4.3); Hematocrit 26.3 % (30.3-42.9); Hemoglobin 8.4 gm/dl (10.1-14.3); Lymphocytes # (Auto) 3.5 K/mm3 (1.2-5.4); Lymphocytes % (Auto) 29.4 % (13.4-35.0); Mean Corpuscular HGB Conc 32 % (30-34); Mean Corpuscular Volume 91 fl (79-97); Monocytes # (Auto) 0.7 K/mm3 (0.0-0.8); Monocytes % (Auto) 6.2 % (0.0-7.3); Platelet Count 721 K/mm3 (140-440); Red Blood Count 2.91 M/mm3 (3.65-5.03); Red Cell Distribution Width 17.6 % (13.2-15.2)
[2020-06-10 18:37] VITALS: BP 129/67
== END 2020-06-10 18:50 | disposition home or self-care (01) ==
LOC: ED 12:21
DX: D57.00 Hb-SS disease with crisis, unspecified (principal); I10 Essential (primary) hypertension; M19.90 Unspecified osteoarthritis, unspecified site; J45.909 Unspecified asthma, uncomplicated; Z90.49 Acquired absence of other specified parts of digestive tract; Z79.899 Other long term (current) drug therapy
CPT/HCPCS: 36415; 80048; 85025; 85045; 96361; 96374; 96375; 96376; 99283; J1170; J1200; J1642; J2405; J7030

== ENCOUNTER 2020-06-16 13:28 | Emergency (ER) | payer MEDICAID | END 2020-06-16 16:12 | disposition left against medical advice (07) | LOC: ED 13:28 | DX: D57.00 Hb-SS disease with crisis, unspecified (principal); Z53.21 Procedure and treatment not carried out due to patient leaving prior to being seen by health care provider ==

== ENCOUNTER 2020-06-17 09:10 | Emergency (ER) | payer MEDICAID ==
[2020-06-17] MEDS ORDERED: HYDROmorphone 2 MG/1 ML INJ IV ONE ×3 (13:23→15:17)
[2020-06-17] MEDS ORDERED: diphenhydrAMINE 25 MG CAP PO ONE (13:23)
[2020-06-17] MEDS ORDERED: ONDANSETRON 4 MG/2 ML INJ IV ONE (13:23)
--- NOTE | 2020-06-17 13:24 | Emergency Department Report ---
ED General Adult HPI - General Chief complaint: Pain General Stated complaint: SICKLE CELL CRISIS Time Seen by Provider: 06/17/20 13:16 Source: patient, RN notes reviewed, old records reviewed Mode of arrival: Ambulatory Limitations: No Limitations - History of Present Illness Initial comments: The patient is a 34-year-old female, with a history of sickle cell disease and hypertension, who is a frequent utilizer of this emergency department. She presents to the ER today with her typical complaint of sickle cell pain, manifest by upper and lower extremities sharp throbbing aching pain, paraspinal back pain, nausea, malaise and fatigue. This feels similar to prior episodes of sickle cell crisis. Her sickle crisis is typically triggered by cold weather, change of seasons, and menstruation. She is currently menstruating now. She states that she is not . She denies sore throat, cough, and urinary symptoms. Typically, her pain is improved with hydromorphone and supportive care. -: Gradual Location: back, left, right, upper extremity, lower extremity Quality: aching Consistency: constant Improves with: medication, rest Worsens with: movement - Related Data Home Medications Medication Instructions Recorded Confirmed Last Taken Methadone [Dolophine] 20 mg PO BID 03/19/19 03/22/20 08/18/19 Percocet 5/325 mg 10 mg PO PRN 01/29/20 03/22/20 01/28/20 Previous Rx's Medication Instructions Recorded Last Taken Type Folic Acid [Folvite] 1 mg PO DAILY #30 tablet 08/23/19 01/29/20 Rx Hydroxyurea 500 mg PO DAILY #30 cap 08/23/19 Unknown Rx amLODIPine 10 mg PO QDAY #30 tablet 08/23/19 01/28/20 Rx cloNIDine [Catapres] 0.2 mg PO BID #60 08/23/19 01/28/20 Rx lisinopriL [Zestril TAB] 40 mg PO QDAY #30 tablet 08/23/19 01/28/20 Rx Albuterol Mdi (or & Nicu Only) 2 puff IH QID PRN #1 inhalation 01/13/20 01/29/20 11:27 Rx [ProAir HFA Inhaler] HYDROcodone/APAP 5-325 [[place] 1 - 2 each PO Q6HR PRN #10 tablet 04/05/20 Unknown Rx 5/325] Allergies Allergy/AdvReac Type Severity Reaction Status Date / Time morphine Allergy Shortness Verified 06/10/20 12:36 of Breath ED Review of Systems ROS: Stated complaint: SICKLE CELL CRISIS Other details as noted in HPI Constitutional: malaise. denies: fever Eyes: denies: eye discharge ENT: denies: congestion Respiratory: denies: cough Cardiovascular: denies: chest pain Gastrointestinal: denies: abdominal pain, nausea, vomiting Genitourinary: denies: dysuria Musculoskeletal: back pain, arthralgia, myalgia Neurological: weakness Psychiatric: anxiety Hematological/Lymphatic: denies: easy bleeding ED Past Medical Hx - Past Medical History Previous Medical History?: Yes Hx Hypertension: Yes Hx Sickle Cell Disease: Yes Hx Arthritis: Yes Hx Asthma: Yes Additional medical history: ANEMIA, multiple port infections - Surgical History Past Surgical History?: Yes Hx Cholecystectomy: Yes Additional Surgical History: , port removed June 2014. PICC line left upper arm (11/19/2014). . - Social History Smoking Status: Never Smoker Substance Use Type: None - Medications Home Medications: Home Medications Medication Instructions Recorded Confirmed Last Taken Type Methadone [Dolophine] 20 mg PO BID 03/19/19 03/22/20 08/18/19 History Folic Acid [Folvite] 1 mg PO DAILY #30 tablet 08/23/19 03/22/20 01/29/20 Rx Hydroxyurea 500 mg PO DAILY #30 cap 08/23/19 03/22/20 Unknown Rx amLODIPine 10 mg PO QDAY #30 tablet 08/23/19 03/22/20 01/28/20 Rx cloNIDine [Catapres] 0.2 mg PO BID #60 08/23/19 03/22/20 01/28/20 Rx lisinopriL [Zestril TAB] 40 mg PO QDAY #30 tablet 08/23/19 03/22/20 01/28/20 Rx Albuterol Mdi (or & Nicu Only) 2 puff IH QID PRN #1 inhalation 01/13/20 03/22/20 01/29/20 11:27 Rx [ProAir HFA Inhaler] Percocet 5/325 mg 10 mg PO PRN 01/29/20 03/22/20 01/28/20 History HYDROcodone/APAP 5-325 [[place] 1 - 2 each PO Q6HR PRN #10 tablet 04/05/20 Unknown Rx 5/325] ED Physical Exam - General Limitations: No Limitations General appearance: alert, anxious, in distress, obese - Head Head exam: Present: atraumatic, normocephalic - Eye Eye exam: Present: normal appearance, EOMI. Absent: nystagmus - ENT ENT exam: Present: normal exam, normal orophraynx, mucous membranes moist, normal external ear exam - Neck Neck exam: Present: normal inspection, full ROM. Absent: tenderness, meningismus - Respiratory Respiratory exam: Present: normal lung sounds bilaterally. Absent: respiratory distress - Cardiovascular Cardiovascular Exam: Present: regular rate, normal rhythm, normal heart sounds. Absent: bradycardia, tachycardia, irregular rhythm, systolic murmur, diastolic murmur, rubs, gallop - GI/Abdominal GI/Abdominal exam: Present: soft, normal bowel sounds. Absent: distended, tende rness, guarding, rebound, rigid - Extremities Exam Extremities exam: Present: normal inspection, full ROM, tenderness (There is diffuse long bony tenderness. 2+ pulses noted on the bilateral upper and lower extremities. There is no palpable cord. The pelvis is stable.) - Back Exam Back exam: Present: normal inspection, paraspinal tenderness. Absent: tenderness, CVA tenderness (R), CVA tenderness (L), vertebral tenderness - Neurological Exam Neurological exam: Present: alert, other (No facial droop. Tongue midline. Extraocular movements intact bilaterally. Facial sensation intact to light touch in V1, V2, V3 distribution bilaterally. 5 and a 5 strength in 4 extremities. Sensation intact to light touch in 4 extremities.) - Psychiatric Psychiatric exam: Present: anxious - Skin Skin exam: Present: warm, dry, intact, normal color. Absent: rash ED Course Vital Signs 06/17/20 06/17/20 06/17/20 09:25 14:00 14:16 Temperature 98.4 F Pulse Rate 66 64 103 H Respiratory 16 13 40 H Rate Blood Pressure 171/81 164/85 Blood Pressure 118/54 [Left] O2 Sat by Pulse 100 99 Oximetry 06/17/20 06/17/20 06/17/20 14:30 14:45 15:01 Temperature Pulse Rate 58 L 61 Respiratory 18 15 Rate Blood Pressure 164/85 119/62 Blood Pressure 158/74 [Left] O2 Sat by Pulse 100 98 95 Oximetry 06/17/20 06/17/20 06/17/20 15:15 15:30 15:45 Temperature Pulse Rate 69 58 L 66 Respiratory 19 19 16 Rate Blood Pressure 125/71 134/72 134/72 Blood Pressure [Left] O2 Sat by Pulse 99 99 97 Oximetry 06/17/20 06/17/20 06/17/20 16:00 16:01 16:15 Temperature Pulse Rate 60 65 Respiratory 20 20 15 Rate Blood Pressure 142/64 142/64 Blood Pressure [Left] O2 Sat by Pulse 98 100 97 Oximetry 06/17/20 16:45 Temperature Pulse Rate Respiratory Rate Blood Pressure 132/60 Blood Pressure [Left] O2 Sat by Pulse 100 Oximetry - Reevaluation(s) Reevaluation #1: 06/17/20 14:43 Differential diagnosis, including but not limited to: Narcotic dependence, sickle cell crisis Assessment and plan: 34-year-old female with a past medical history of sickle cell disease, who presents to the ER today with her current report of sickle cell pain. I have evaluated the patient multiple times in the past. Access port, give aggressive pain medication, hydration, placed on monitor car operator and pulse oximeter, and observe patient. Patient has received a dose of pain medication x1, she reports she is still having pain, therefore, additional dose of medication is ordered. Reevaluation #2: 06/17/20 15:30 Reassessed. Feels improved. Playing on a computer. Laboratory studies appear to be at baseline. Third dose of hydromorphone ordered. Reevaluation #3: 06/17/20 15:46 The patient was evaluated in the emergency department for symptoms described in the history of present illness. He/she was evaluated in the context of the global COVID-19 pandemic, which necessitated consideration that the patient might be at risk for infection with the virus that causes COVID-19. Institutional protocols and algorithms that pertain to the evaluation of patients at risk for COVID-19 are in a state of rapid change based on inf ormation released by regulatory bodies including the CDC and federal and state organizations. These policies and algorithms were followed during the patient's care in the emergency department. Please note that these policies, procedures and recommendations changed on a rapid basis. Reevaluation #4: 06/17/20 15:53 Continues to type and playing on laptop computer, vital signs unremarkable, patient in no acute distress, appears improved ED Medical Decision Making - Lab Data Result diagrams: 06/17/20 14:48 06/17/20 14:48 Vital Signs 06/17/20 06/17/20 09:25 14:30 Temperature 98.4 F Pulse Rate 66 58 L Respiratory 16 18 Rate Blood Pressure 118/54 158/74 [Left] O2 Sat by Pulse 100 99 Oximetry Lab Results 06/17/20 06/17/20 Range/Units 14:48 14:48 WBC 14.2 H (4.5-11.0) K/mm3 RBC 2.68 L (3.65-5.03) M/mm3 Hgb 7.8 L (10.1-14.3) gm/dl Hct 24.4 L (30.3-42.9) % MCV 91 (79-97) fl MCH 29 (28-32) pg MCHC 32 (30-34) % RDW 17.6 H (13.2-15.2) % Plt Count 527 H (140-440) K/mm3 Lymph % (Auto) 25.4 (13.4-35.0) % [place] % (Auto) 4.7 (0.0-7.3) % Eos % (Auto) 3.5 (0.0-4.3) % Baso % (Auto) 0.9 (0.0-1.8) % Lymph # 3.6 (1.2-5.4) K/mm3 [place] # 0.7 (0.0-0.8) K/mm3 Eos # 0.5 H (0.0-0.4) K/mm3 Baso # 0.1 (0.0-0.1) K/mm3 Seg Neutrophils % 65.5 (40.0-70.0) % Seg Neutrophils # 9.3 H (1.8-7.7) K/mm3 Percent Retic 9.50 H (0.78-2.58) % Sodium 139 (137-145) mmol/L Potassium 4.5 (3.6-5.0) mmol/L Chloride 105.5 (98-107) mmol/L Carbon Dioxide 23 (22-30) mmol/L Anion Gap 15 mmol/L BUN 21 H (7-17) mg/dL Creatinine 1.2 (0.6-1.2) mg/dL Estimated GFR > 60 ml/min BUN/Creatinine Ratio 18 % Glucose 111 H (65-100) mg/dL Calcium 9.0 (8.4-10.2) mg/dL Magnesium 1.80 (1.7-2.3) mg/dL Total Creatine Kinase 36 (30-135) units/L Critical care attestation.: If time is entered above; I have spent that time in minutes in the direct care of this critically ill patient, excluding procedure time. ED Disposition Clinical Impression: Sickle cell pain crisis Disposition: DC-01 TO HOME OR SELFCARE Is pt being admited?: No Does the pt Need Aspirin: No Condition: Stable Instructions: Sickle Cell Crisis (ED) Additional Instructions: Please continue current outpatient medications. To drink plenty of fluids. Wash hands frequently, thoroughly and often. Please follow-up with your outpatient primary care doctor or registered dental assistant within the next week. Please return to the emergency room right away with new pain, worsening pain, migration of pain, projectile vomiting, change in mental status, confusion, inability to tolerate liquid feeds, new, worsened or different symptoms not present on the initial emergency room evaluation. Referrals: PATTIE KEANE MD [Primary Care Provider] - 3-5 Days
[2020-06-17] MEDS ORDERED: D5W/0.45% NACL 1,000 ML IV SCH (14:00)
[2020-06-17 15:02] LABS: Basophils # (Auto) 0.1 K/mm3 (0.0-0.1); Basophils % (Auto) 0.9 % (0.0-1.8); Eosinophils # (Auto) 0.5 K/mm3 (0.0-0.4); Eosinophils % (Auto) 3.5 % (0.0-4.3); Hematocrit 24.4 % (30.3-42.9); Hemoglobin 7.8 gm/dl (10.1-14.3); Lymphocytes # (Auto) 3.6 K/mm3 (1.2-5.4); Lymphocytes % (Auto) 25.4 % (13.4-35.0); Mean Corpuscular HGB Conc 32 % (30-34); Mean Corpuscular Volume 91 fl (79-97); Monocytes # (Auto) 0.7 K/mm3 (0.0-0.8); Monocytes % (Auto) 4.7 % (0.0-7.3); Platelet Count 527 K/mm3 (140-440); Red Blood Count 2.68 M/mm3 (3.65-5.03); Red Cell Distribution Width 17.6 % (13.2-15.2)
[2020-06-17 15:17] LABS: BUN/Creatinine Ratio 18; Blood Urea Nitrogen 21 mg/dL (7-17); Hemolysis Index 5
[2020-06-17 18:53] VITALS: BP 132/60
== END 2020-06-17 16:40 | disposition home or self-care (01) ==
LOC: ED 09:10
DX: I10 Essential (primary) hypertension (principal); M13.88 Other specified arthritis, other site; J45.909 Unspecified asthma, uncomplicated; D57.80 Other sickle-cell disorders without crisis; Z79.899 Other long term (current) drug therapy; Z86.2 Personal history of diseases of the blood and blood-forming organs and certain disorders involving the immune mechanism; Z90.49 Acquired absence of other specified parts of digestive tract; Z88.6 Allergy status to analgesic agent
CPT/HCPCS: 36415; 80048; 82550; 83735; 85025; 85045; 96361; 96374; 96375; 96376; 99284; J1170; J1642; J2405

== ENCOUNTER 2020-07-13 12:13 | Emergency (ER) | payer MEDICAID ==
[2020-07-13 15:21] LABS: Basophils # (Auto) 0.1 K/mm3 (0.0-0.1); Eosinophils # (Auto) 0.6 K/mm3 (0.0-0.4); Eosinophils % (Auto) 3.6 % (0.0-4.3); Hematocrit 24.2 % (30.3-42.9); Hemoglobin 8.6 gm/dl (10.1-14.3); Lymphocytes # (Auto) 4.1 K/mm3 (1.2-5.4); Lymphocytes % (Auto) 26.1 % (13.4-35.0); Mean Corpuscular HGB Conc 35 % (30-34); Mean Corpuscular Volume 95 fl (79-97); Monocytes # (Auto) 1.3 K/mm3 (0.0-0.8); Monocytes % (Auto) 8.5 % (0.0-7.3); Platelet Count 403 K/mm3 (140-440); Red Blood Count 2.56 M/mm3 (3.65-5.03)
[2020-07-13 15:30] LABS: Red Cell Distribution Width 23.4 % (13.2-15.2)
[2020-07-13 15:37] LABS: BUN/Creatinine Ratio 13; Blood Urea Nitrogen 15 mg/dL (7-17); Calcium 9.3 mg/dL (8.4-10.2); Hemolysis Index 12
[2020-07-13] MEDS ORDERED: diphenhydrAMINE 50 MG/ML VIAL IV ONE ×2 (16:21→17:28)
[2020-07-13] MEDS ORDERED: KETOROLAC 30 MG/1 ML INJ IV ONE (16:21)
[2020-07-13] MEDS ORDERED: ONDANSETRON 4 MG/2 ML INJ IV ONE (16:21)
[2020-07-13] MEDS ORDERED: HYDROmorphone 2 MG/1 ML INJ IV ONE ×3 (16:21→18:38)
[2020-07-13] MEDS ORDERED: D5W/0.2% NACL 1,000 ML IV ONE (16:36)
[2020-07-13] MEDS ORDERED: D5W/0.2% NACL 1,000 ML IV SCH (17:00)
--- NOTE | 2020-07-13 17:49 | Emergency Department Report ---
ED General Adult HPI - General Chief complaint: Sickle Cell Crisis Stated complaint: SICKLE CELL Time Seen by Provider: 07/13/20 16:19 Source: patient Mode of arrival: Ambulatory Limitations: No Limitations - History of Present Illness Initial comments: 34-year-old female the past medical history of sickle cell, asthma, hypertension presents to the hospital with complaints of pain secondary to sickle cell crisis since yesterday. Pain is moderate to severe in intensity, constant, not alleviated with current medications. She denies fever, cough, shortness of breath, dysuria, or infectious symptoms. Severity scale (0 -10): 8 - Related Data Home Medications Medication Instructions Recorded Confirmed Last Taken Methadone [Dolophine] 20 mg PO BID 03/19/19 03/22/20 08/18/19 Percocet 5/325 mg 10 mg PO PRN 01/29/20 03/22/20 01/28/20 Previous Rx's Medication Instructions Recorded Last Taken Type Folic Acid [Folvite] 1 mg PO DAILY #30 tablet 08/23/19 01/29/20 Rx Hydroxyurea 500 mg PO DAILY #30 cap 08/23/19 Unknown Rx amLODIPine 10 mg PO QDAY #30 tablet 08/23/19 01/28/20 Rx cloNIDine [Catapres] 0.2 mg PO BID #60 08/23/19 01/28/20 Rx lisinopriL [Zestril TAB] 40 mg PO QDAY #30 tablet 08/23/19 01/28/20 Rx Albuterol Mdi (or & Nicu Only) 2 puff IH QID PRN #1 inhalation 01/13/20 01/29/20 11:27 Rx [ProAir HFA Inhaler] HYDROcodone/APAP 5-325 [[place] 1 - 2 each PO Q6HR PRN #10 tablet 04/05/20 Unknown Rx 5/325] Allergies Allergy/AdvReac Type Severity Reaction Status Date / Time morphine Allergy Shortness Verified 06/10/20 12:36 of Breath ED Review of Systems ROS: Stated complaint: SICKLE CELL Other details as noted in HPI Comment: All other systems reviewed and negative ED Past Medical Hx - Past Medical History Hx Hypertension: Yes Hx Sickle Cell Disease: Yes Hx Arthritis: Yes Hx Asthma: Yes Additional medical history: ANEMIA, multiple port infections - Surgical History Hx Cholecystectomy: Yes Additional Surgical History: , port removed June 2014. PICC line left upper arm (11/19/2014). . - Social History Smoking Status: Never Smoker - Medications Home Medications: Home Medications Medication Instructions Recorded Confirmed Last Taken Type Methadone [Dolophine] 20 mg PO BID 03/19/19 03/22/20 08/18/19 History Folic Acid [Folvite] 1 mg PO DAILY #30 tablet 08/23/19 03/22/20 01/29/20 Rx Hydroxyurea 500 mg PO DAILY #30 cap 08/23/19 03/22/20 Unknown Rx amLODIPine 10 mg PO QDAY #30 tablet 08/23/19 03/22/20 01/28/20 Rx cloNIDine [Catapres] 0.2 mg PO BID #60 08/23/19 03/22/20 01/28/20 Rx lisinopriL [Zestril TAB] 40 mg PO QDAY #30 tablet 08/23/19 03/22/20 01/28/20 Rx Albuterol Mdi (or & Nicu Only) 2 puff IH QID PRN #1 inhalation 01/13/20 03/22/20 01/29/20 11:27 Rx [ProAir HFA Inhaler] Percocet 5/325 mg 10 mg PO PRN 01/29/20 03/22/20 01/28/20 History HYDROcodone/APAP 5-325 [[place] 1 - 2 each PO Q6HR PRN #10 tablet 04/05/20 Unknown Rx 5/325] ED Physical Exam - General Limitations: No Limitations - Other Other exam information: General: No acute distress Head: Atraumatic Eyes: normal appearance ENT: Moist mucous membranes Neck: Normal appearance, no midline tenderness Chest: Clear to auscultation bilaterally, port to chest wall CV: Regular rate and rhythm Abdomen: Soft, normal bowel sounds, nontender, nondistended, no rebound or guarding Back: Normal inspection Extremity: Normal inspection, full range of motion Neuro: Alert O x 3, no facial asymmetry, speech clear, no gross motor sensory deficit Psych: Appropriate behavior Skin: No rash ED Course Vital Signs 07/13/20 07/13/20 12:37 18:30 Temperature 98.3 F Pulse Rate 87 84 Respiratory 16 16 Rate Blood Pressure 184/90 Blood Pressure 146/84 [Left] O2 Sat by Pulse 95 98 Oximetry ED Medical Decision Making - Lab Data Result diagrams: 07/13/20 15:09 07/13/20 15:09 Lab Results 07/13/20 07/13/20 07/13/20 Range/Units 15:09 15:09 15:09 WBC 15.7 H (4.5-11.0) K/mm3 RBC 2.56 L (3.65-5.03) M/mm3 Hgb 8.6 L (10.1-14.3) gm/dl Hct 24.2 L (30.3-42.9) % MCV 95 (79-97) fl MCH 34 H (28-32) pg MCHC 35 H (30-34) % RDW 23.4 H (13.2-15.2) % Plt Count 403 (140-440) K/mm3 Lymph % (Auto) 26.1 (13.4-35.0) % [place] % (Auto) 8.5 H (0.0-7.3) % Eos % (Auto) 3.6 (0.0-4.3) % Baso % (Auto) 1.0 (0.0-1.8) % Lymph # 4.1 (1.2-5.4) K/mm3 [place] # 1.3 H (0.0-0.8) K/mm3 Eos # 0.6 H (0.0-0.4) K/mm3 Baso # 0.1 (0.0-0.1) K/mm3 Seg Neutrophils % 60.8 (40.0-70.0) % Seg Neutrophils # 9.5 H (1.8-7.7) K/mm3 Percent Retic 11.42 H (0.78-2.58) % Sodium 138 (137-145) mmol/L Potassium 4.2 (3.6-5.0) mmol/L Chloride 102.6 (98-107) mmol/L Carbon Dioxide 23 (22-30) mmol/L Anion Gap 17 mmol/L BUN 15 (7-17) mg/dL Creatinine 1.2 (0.6-1.2) mg/dL Estimated GFR > 60 ml/min BUN/Creatinine Ratio 13 % Glucose 119 H (65-100) mg/dL Calcium 9.3 (8.4-10.2) mg/dL HCG, Qual Negative (Negative) - Medical Decision Making Patient presents to the hospital with pain secondary to cervical crisis. Mild anemia without requirement for blood transfusion at this time. Elevated reticulocyte count noted. Patient feels better with ED treatment of IV fluids, Dilaudid, Zofran, Toradol, and Benadryl. 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 ED Disposition Clinical Impression: Anemia, sickle cell with crisis Disposition: DC-01 TO HOME OR SELFCARE Is pt being admited?: No Does the pt Need Aspirin: No Condition: Stable Instructions: Sickle Cell Crisis (ED) Additional Instructions: Continue your current medication as prescribed. Follow-up with your doctor or doctor/clinic provided. Return if symptoms worsen as indicated by your discharge instructions. Referrals: Your, cadmium burner [Other] - 3-5 Days Time of Disposition: 19:16
[2020-07-13 18:31] VITALS: BP 146/84
== END 2020-07-13 19:22 | disposition home or self-care (01) ==
LOC: ED 12:13
DX: D57.819 Other sickle-cell disorders with crisis, unspecified (principal); I10 Essential (primary) hypertension; M13.88 Other specified arthritis, other site; J45.909 Unspecified asthma, uncomplicated; Z90.49 Acquired absence of other specified parts of digestive tract; Z98.890 Other specified postprocedural states; Z79.899 Other long term (current) drug therapy; Z88.6 Allergy status to analgesic agent
CPT/HCPCS: 36415; 80048; 84703; 85025; 85045; 96361; 96374; 96375; 96376; 99283; J1170; J1200; J1642; J1885; J2405

== ENCOUNTER 2020-07-16 11:01 | Emergency (ER) | payer MEDICAID ==
[2020-07-16] MEDS ORDERED: diphenhydrAMINE 50 MG/ML VIAL IV ONE ×2 (11:46→13:19)
[2020-07-16] MEDS ORDERED: HYDROmorphone 2 MG/1 ML INJ IV ONE ×4 (11:46→14:09)
[2020-07-16] MEDS ORDERED: ONDANSETRON 4 MG/2 ML INJ IV ONE (11:46)
[2020-07-16] MEDS ORDERED: KETOROLAC 30 MG/1 ML INJ IV ONE (11:46)
[2020-07-16] MEDS ORDERED: D5W/0.2% NACL 1,000 ML IV SCH (12:00)
[2020-07-16 12:54] LABS: Hemoglobin 8.1 gm/dl (10.1-14.3); Mean Corpuscular HGB Conc 34 % (30-34); Mean Corpuscular Volume 96 fl (79-97); Platelet Count 422 K/mm3 (140-440)
[2020-07-16 12:57] LABS: Red Cell Distribution Width 22.3 % (13.2-15.2)
[2020-07-16] MEDS ORDERED: ZIPRASIDONE MESYLATE 20 MG VIAL IM ONE (13:41)
[2020-07-16 13:54] LABS: Anisocytosis 1+; Band Neutrophils # (Manual) 0.2 K/mm3; Basophils % (Manual) 0 % (0.0-1.8); Eosinophils % (Manual) 0 % (0.0-4.3); Poikilocytosis 1+; Sickle Cells 2+; Total Cells Counted 100
[2020-07-16 13:55] LABS: Giant Platelets Few; Platelet Estimate Consistent w Auto; Target Cells Few
--- NOTE | 2020-07-16 14:28 | Emergency Department Report ---
ED General Adult HPI - General Chief complaint: Sickle Cell Crisis Stated complaint: SICKLE CELL CRISIS Time Seen by Provider: 07/16/20 11:46 Source: patient Mode of arrival: Ambulatory Limitations: No Limitations - History of Present Illness Initial comments: 34-year-old female the past medical history of hypertension and sickle cell disease presents the hospital complains of pain to legs and lower back secondary to sickle cell crisis. Patient taking home meds without improvement. Patient frequently comes to the ED with similar complaints and was here 3 days ago. She denies fever, dysuria, chest pain, shortness of breath, nausea, vomiting, or infectious symptoms. Severity scale (0 -10): 3 - Related Data Home Medications Medication Instructions Recorded Confirmed Last Taken Methadone [Dolophine] 20 mg PO BID 03/19/19 03/22/20 08/18/19 Percocet 5/325 mg 10 mg PO PRN 01/29/20 03/22/20 01/28/20 Previous Rx's Medication Instructions Recorded Last Taken Type Folic Acid [Folvite] 1 mg PO DAILY #30 tablet 08/23/19 01/29/20 Rx Hydroxyurea 500 mg PO DAILY #30 cap 08/23/19 Unknown Rx amLODIPine 10 mg PO QDAY #30 tablet 08/23/19 01/28/20 Rx cloNIDine [Catapres] 0.2 mg PO BID #60 08/23/19 01/28/20 Rx lisinopriL [Zestril TAB] 40 mg PO QDAY #30 tablet 08/23/19 01/28/20 Rx Albuterol Mdi (or & Nicu Only) 2 puff IH QID PRN #1 inhalation 01/13/20 01/29/20 11:27 Rx [ProAir HFA Inhaler] HYDROcodone/APAP 5-325 [[place] 1 - 2 each PO Q6HR PRN #10 tablet 04/05/20 Unknown Rx 5/325] Allergies Allergy/AdvReac Type Severity Reaction Status Date / Time morphine Allergy Shortness Verified 07/16/20 11:22 of Breath ED Review of Systems ROS: Stated complaint: SICKLE CELL CRISIS Other details as noted in HPI Comment: All other systems reviewed and negative ED Past Medical Hx - Past Medical History Hx Hypertension: Yes Hx Sickle Cell Disease: Yes Hx Arthritis: Yes Hx Asthma: Yes Additional medical history: ANEMIA, multiple port infections - Surgical History Hx Cholecystectomy: Yes Additional Surgical History: , port removed June 2014. PICC line left upper arm (11/19/2014). . - Social History Smoking Status: Never Smoker Substance Use Type: None - Medications Home Medications: Home Medications Medication Instructions Recorded Confirmed Last Taken Type Methadone [Dolophine] 20 mg PO BID 03/19/19 03/22/20 08/18/19 History Folic Acid [Folvite] 1 mg PO DAILY #30 tablet 08/23/19 03/22/20 01/29/20 Rx Hydroxyurea 500 mg PO DAILY #30 cap 08/23/19 03/22/20 Unknown Rx amLODIPine 10 mg PO QDAY #30 tablet 08/23/19 03/22/20 01/28/20 Rx cloNIDine [Catapres] 0.2 mg PO BID #60 08/23/19 03/22/20 01/28/20 Rx lisinopriL [Zestril TAB] 40 mg PO QDAY #30 tablet 08/23/19 03/22/20 01/28/20 Rx Albuterol Mdi (or & Nicu Only) 2 puff IH QID PRN #1 inhalation 01/13/20 03/22/20 01/29/20 11:27 Rx [ProAir HFA Inhaler] Percocet 5/325 mg 10 mg PO PRN 01/29/20 03/22/20 01/28/20 History HYDROcodone/APAP 5-325 [[place] 1 - 2 each PO Q6HR PRN #10 tablet 04/05/20 Unknown Rx 5/325] ED Physical Exam - General Limitations: No Limitations - Other Other exam information: General: Moderate distress secondary to pain Head: Atraumatic Eyes: normal appearance ENT: Moist mucous membranes Neck: Normal appearance, no midline tenderness Chest: Clear to auscultation bilaterally CV: Regular rate and rhythm Abdomen: Soft, normal bowel sounds, nontender, nondistended, no rebound or guarding Back: Normal inspection, diffuse lumbar tenderness Extremity: Normal inspection, full range of motion Neuro: Alert O x 3, no facial asymmetry, speech clear, no gross motor sensory deficit Psych: Appropriate behavior Skin: No rash ED Course Vital Signs 07/16/20 07/16/20 07/16/20 11:24 11:47 12:00 Temperature 98.3 F Pulse Rate 84 90 108 H Respiratory 22 Rate Blood Pressure 164/90 151/79 Blood Pressure [Right] O2 Sat by Pulse 95 93 95 Oximetry 07/16/20 07/16/20 07/16/20 12:16 12:21 12:51 Temperature 98.1 F Pulse Rate 133 H 100 H Respiratory 18 18 Rate Blood Pressure 151/79 Blood Pressure 156/86 [Right] O2 Sat by Pulse 95 100 Oximetry 07/16/20 07/16/20 07/16/20 13:00 13:47 14:00 Temperature Pulse Rate 83 91 H Respiratory 18 Rate Blood Pressure 148/73 151/70 Blood Pressure [Right] O2 Sat by Pulse 95 95 Oximetry 07/16/20 14:17 Temperature Pulse Rate Respiratory 18 Rate Blood Pressure Blood Pressure [Right] O2 Sat by Pulse Oximetry ED Medical Decision Making - Lab Data Result diagrams: 07/16/20 12:36 Lab Results 07/16/20 07/16/20 Range/Units 12:36 12:40 WBC 19.2 H (4.5-11.0) K/mm3 RBC 2.50 L (3.65-5.03) M/mm3 Hgb 8.1 L (10.1-14.3) gm/dl Hct 24.0 L (30.3-42.9) % MCV 96 (79-97) fl MCH 32 (28-32) pg MCHC 34 (30-34) % RDW 22.3 H (13.2-15.2) % Plt Count 422 (140-440) K/mm3 Lymph # [employer] Add Manual Diff Complete Total Counted 100 Seg Neuts % (Manual) 59.0 (40.0-70.0) % Band Neutrophils % 1.0 % Lymphocytes % (Manual) 29.0 (13.4-35.0) % Reactive Lymphs % (Man) 0 % Monocytes % (Manual) 10.0 H (0.0-7.3) % Eosinophils % (Manual) 0 (0.0-4.3) % Basophils % (Manual) 0 (0.0-1.8) % Metamyelocytes % 1.0 % Myelocytes % 0 % Promyelocytes % 0 % Blast Cells % 0 % Nucleated RBC % 12.0 H (0.0-0.9) % Seg Neutrophils # Man 11.3 H (1.8-7.7) K/mm3 Band Neutrophils # 0.2 K/mm3 Lymphocytes # (Manual) 5.6 H (1.2-5.4) K/mm3 Abs React Lymphs (Man) 0.0 K/mm3 Monocytes # (Manual) 1.9 H (0.0-0.8) K/mm3 Eosinophils # (Manual) 0.0 (0.0-0.4) K/mm3 Basophils # (Manual) 0.0 (0.0-0.1) K/mm3 Metamyelocytes # 0.2 K/mm3 Myelocytes # 0.0 K/mm3 Promyelocytes # 0.0 K/mm3 Blast Cells # 0.0 K/mm3 WBC Morphology Not Reportable Hypersegmented Neuts Not Reportable Hyposegmented Neuts Not Reportable Hypogranular Neuts Not Reportable Smudge Cells Not Reportable Toxic Granulation Not Reportable Toxic Vacuolation Not Reportable Dohle Bodies Not Reportable Pelger-Huet Anomaly Not Reportable Ariadne Rods Not Reportable Platelet Estimate Consistent w auto Clumped Platelets Not Reportable Plt Clumps, EDTA Not Reportable Large Platelets Not Reportable Giant Platelets Few Platelet Satelliting Not Reportable Plt Morphology Comment Not Reportable RBC Morphology Not Reportable Dimorphic RBCs Not Reportable Polychromasia Few Hypochromasia Not Reportable Poikilocytosis 1+ Anisocytosis 1+ Microcytosis Not Reportable Macrocytosis Not Reportable Spherocytes Not Reportable Pappenheimer Bodies Not Reportable Sickle Cells 2+ Target Cells Few Tear Drop Cells Not Reportable Ovalocytes Not Reportable Helmet Cells Not Reportable Wal[place] Bodies Not Reportable [place] Rings Not Reportable [place] Cells Not Reportable Bite Cells Not Reportable Crenated Cell Not Reportable Elliptocytes Few Acanthocytes (Spur) Not Reportable Rouleaux Not Reportable Hemoglobin C Crystals Not Reportable Schistocytes Not Reportable Malaria parasites Not Reportable Percent Retic 12.10 H (0.78-2.58) % Alexis Bodies Not Reportable Hem Pathologist Commnt No HCG, Qual Negative (Negative) - Medical Decision Making Patient feeling better with ED treatment for sickle cell crisis and will follow- up with her registered pharmacy technician. Does not require blood transfusion at this time Critical Care Time: No Critical care attestation.: If time is entered above; I have spent that time in minutes in the direct care of this critically ill patient, excluding procedure time. ED Disposition Clinical Impression: Anemia, sickle cell with crisis Disposition: DC-01 TO HOME OR SELFCARE Is pt being admited?: No Does the pt Need Aspirin: No Condition: Stable Instructions: Sickle Cell Crisis (ED) Additional Instructions: Continue your current medication as prescribed. Follow-up with your doctor or doctor/clinic provided. Return if symptoms worsen as indicated by your dis charge instructions. Referrals: PRIMARY CARE, [Primary Care Provider] - 3-5 Days Your, registered pharmacy technician [Other] - 3-5 Days Time of Disposition: 14:40
[2020-07-16 14:39] VITALS: BP 151/70
== END 2020-07-16 15:40 | disposition home or self-care (01) ==
LOC: ED 11:01
DX: D57.00 Hb-SS disease with crisis, unspecified (principal); I10 Essential (primary) hypertension; M19.91 Primary osteoarthritis, unspecified site; J45.909 Unspecified asthma, uncomplicated; Z98.890 Other specified postprocedural states; Z79.899 Other long term (current) drug therapy; Z88.8 Allergy status to other drugs, medicaments and biological substances
CPT/HCPCS: 36415; 84703; 85007; 85025; 85045; 96361; 96374; 96375; 96376; 99283; J1170; J1200; J1642; J1885; J2405; J3486

== ENCOUNTER 2020-07-21 12:44 | Emergency (ER) | payer MEDICAID ==
[2020-07-21 12:50] VITALS: BP 182/100
--- NOTE | 2020-07-21 12:54 | Emergency Department Report ---
Blank Doc - Documentation Documentation: 34-year-old female that presents with generlized pain with sickle cell crisis. This initial assessment/diagnostic orders/clinical plan/treatment(s) is/are subject to change based on patient's health status, clinical progression and re- assessment by fellow clinical providers in the ED. Further treatment and workup at subsequent clinical providers discretion. Patient/guardians urged not to elope from the ED as their condition may be serious if not clinically assessed and managed. Initial orders include: 1- Patient sent to MAIN ED for further evaluation and treatment 2- labs
== END 2020-07-21 15:15 | disposition left against medical advice (07) ==
LOC: ED 12:44
DX: D57.00 Hb-SS disease with crisis, unspecified (principal); Z53.21 Procedure and treatment not carried out due to patient leaving prior to being seen by health care provider

== ENCOUNTER 2020-08-12 12:41 | Emergency (ER) | payer MEDICAID | END 2020-08-12 12:55 | disposition left against medical advice (07) | LOC: ED 12:41 | DX: D57.1 Sickle-cell disease without crisis (principal); Z53.21 Procedure and treatment not carried out due to patient leaving prior to being seen by health care provider ==

== ENCOUNTER 2020-08-14 12:49 | Emergency (ER) | payer MEDICAID ==
[2020-08-14] MEDS ORDERED: ONDANSETRON 4 MG ODT TAB PO ONE (13:37)
[2020-08-14] MEDS ORDERED: diphenhydrAMINE 25 MG CAP PO ONE (13:37)
[2020-08-14] MEDS ORDERED: HYDROmorphone 2 MG/1 ML INJ IM ONE ×3 (13:37→15:23)
--- NOTE | 2020-08-14 13:38 | Emergency Department Report ---
ED General Adult HPI - General Chief complaint: Sickle Cell Crisis Stated complaint: SSC PUI?: No Time Seen by Provider: 08/14/20 13:33 Source: patient, RN notes reviewed, old records reviewed Mode of arrival: Ambulatory Limitations: No Limitations - History of Present Illness Initial comments: The patient was evaluated in the emergency department for symptoms described in the history of present illness. He/she was evaluated in the context of the global COVID-19 pandemic, which necessitated consideration that the patient mi ght be at risk for infection with the virus that causes COVID-19. Institutional protocols and algorithms that pertain to the evaluation of patients at risk for COVID-19 are in a state of rapid change based on information released by regulatory bodies including the CDC and federal and state organizations. These policies and algorithms were followed during the patient's care in the emergency department. Please note that these policies, procedures and recommendations changed on a rapid basis. Hematology: Dr. eKane Ms. Mendoza is a 35-year-old female whom I am very familiar with, has a history of sickle cell disease, hypertension, obesity, and is a frequent utilizer of this emergency department. She presents to the ER today with her typical complaint of sickle cell pain crisis. She reports having received a flu shot approximately 2 weeks ago, and recently, over the past day or so, has developed cough, nasal congestion, body aches, no loss of taste, no loss of smell, no chest pain, no abdominal pain, no new or different shortness of breath, no urinary symptoms. She reports that this is similar to prior sickle cell crises. She reports that she has a spleen. Her pain is aching and throbbing and sharp, typically increases with palpation and range of motion, decreases with rest, and hydromorphone -: Gradual, days(s) Location: left, right, upper extremity, lower extremity Quality: aching Consistency: constant Improves with: medication, rest Worsens with: movement - Related Data Home Medications Medication Instructions Recorded Confirmed Last Taken Methadone [Dolophine] 20 mg PO BID 03/19/19 03/22/20 08/18/19 Percocet 5/325 mg 10 mg PO PRN 01/29/20 03/22/20 01/28/20 Previous Rx's Medication Instructions Recorded Last Taken Type Folic Acid [Folvite] 1 mg PO DAILY #30 tablet 08/23/19 01/29/20 Rx Hydroxyurea 500 mg PO DAILY #30 cap 08/23/19 Unknown Rx amLODIPine 10 mg PO QDAY #30 tablet 08/23/19 01/28/20 Rx cloNIDine [Catapres] 0.2 mg PO BID #60 08/23/19 01/28/20 Rx lisinopriL [Zestril TAB] 40 mg PO QDAY #30 tablet 08/23/19 01/28/20 Rx Albuterol Mdi (or & Nicu Only) 2 puff IH QID PRN #1 inhalation 01/13/20 01/29/20 11:27 Rx [ProAir HFA Inhaler] HYDROcodone/APAP 5-325 [[place] 1 - 2 each PO Q6HR PRN #10 tablet 04/05/20 Unknown Rx 5/325] Allergies Allergy/AdvReac Type Severity Reaction Status Date / Time morphine Allergy Shortness Verified 07/16/20 11:22 of Breath ED Review of Systems ROS: Stated complaint: SSC Other details as noted in HPI Constitutional: denies: fever Eyes: denies: eye discharge ENT: congestion Respiratory: cough. denies: wheezing Cardiovascular: denies: chest pain Gastrointestinal: denies: abdominal pain Genitourinary: denies: dysuria Musculoskeletal: back pain, arthralgia, myalgia Neurological: denies: weakness Hematological/Lymphatic: denies: easy bleeding ED Past Medical Hx - Past Medical History Previous Medical History?: Yes Hx Hypertension: Yes Hx Sickle Cell Disease: Yes Hx Arthritis: Yes Hx Asthma: Yes Additional medical history: ANEMIA, multiple port infections - Surgical History Past Surgical History?: Yes Hx Cholecystectomy: Yes Additional Surgical History: , port removed June 2014. PICC line left upper arm (11/19/2014). . - Social History Smoking Status: Never Smoker Substance Use Type: Non Opiate Pain, Prescribed, Other - Medications Home Medications: Home Medications Medication Instructions Recorded Confirmed Last Taken Type Methadone [Dolophine] 20 mg PO BID 03/19/19 03/22/20 08/18/19 History Folic Acid [Folvite] 1 mg PO DAILY #30 tablet 08/23/19 03/22/20 01/29/20 Rx Hydroxyurea 500 mg PO DAILY #30 cap 08/23/19 03/22/20 Unknown Rx amLODIPine 10 mg PO QDAY #30 tablet 08/23/19 03/22/20 01/28/20 Rx cloNIDine [Catapres] 0.2 mg PO BID #60 08/23/19 03/22/20 01/28/20 Rx lisinopriL [Zestril TAB] 40 mg PO QDAY #30 tablet 08/23/19 03/22/20 01/28/20 Rx Albuterol Mdi (or & Nicu Only) 2 puff IH QID PRN #1 inhalation 01/13/20 03/22/20 01/29/20 11:27 Rx [ProAir HFA Inhaler] Percocet 5/325 mg 10 mg PO PRN 01/29/20 03/22/20 01/28/20 History HYDROcodone/APAP 5-325 [[place] 1 - 2 each PO Q6HR PRN #10 tablet 04/05/20 Unknown Rx 5/325] ED Physical Exam - General Limitations: No Limitations General appearance: alert, in distress, obese - Head Head exam: Present: atraumatic, normocephalic - Eye Eye exam: Present: normal appearance, EOMI. Absent: scleral icterus, nystagmus - ENT ENT exam: Present: normal exam, normal orophraynx, mucous membranes moist, normal external ear exam - Neck Neck exam: Present: normal inspection, full ROM. Absent: tenderness, meningismus - Respiratory Respiratory exam: Present: normal lung sounds bilaterally. Absent: respiratory distress, wheezes, rales, rhonchi, stridor, decreased breath sounds - Cardiovascular Cardiovascular Exam: Present: regular rate, normal rhythm, normal heart sounds. Absent: bradycardia, tachycardia, irregular rhythm, systolic murmur, diastolic murmur, rubs, gallop - GI/Abdominal GI/Abdominal exam: Present: soft. Absent: distended, tenderness, guarding, rebound, rigid, pulsatile mass - Extremities Exam Extremities exam: Present: normal inspection, full ROM, other (2+ pulses noted in the bilateral upper and lower extremities. There is no palpable cord. negative Homans sign. Muscular compartments are soft. The pelvis is stable.). Absent: pedal edema, calf tenderness - Back Exam Back exam: Present: normal inspection, full ROM, paraspinal tenderness. Absent: tenderness, CVA tenderness (R), CVA tenderness (L), vertebral tenderness - Neurological Exam Neurological exam: Present: alert, normal gait, other (No facial droop. Tongue midline. Extraocular movements intact bilaterally. Facial sensation intact to light touch in V1, V2, V3 distribution bilaterally. 5 and a 5 strength in 4 extremities. Sensation intact to light touch in 4 extremities.). Absent: motor sensory deficit - Psychiatric Psychiatric exam: Present: anxious - Skin Skin exam: Present: warm, dry, intact, normal color. Absent: rash ED Course Vital Signs 08/14/20 12:58 Temperature 97.8 F Pulse Rate 73 Respiratory 14 Rate Blood Pressure 156/87 O2 Sat by Pulse 95 Oximetry - Reevaluation(s) Reevaluation #1: 08/14/20 15:24 Patient playing on her cell phone, and in no acute distress. Patient has received her typical 3 doses of hydromorphone, and is suitable for discharge at this time. ED Medical Decision Making - Lab Data Vital Signs 08/14/20 12:58 Temperature 97.8 F Pulse Rate 73 Respiratory 14 Rate Blood Pressure 156/87 O2 Sat by Pulse 95 Oximetry - Medical Decision Making Differential diagnosis, including but not limited to: Sickle cell pain/crisis, viral syndrome Assessment and plan: 85-year-old female, who is afebrile with reassuring vital signs, has chronically elevated blood pressure/hypertension, blood pressure today is actually improved when compared to prior values, who presents with her typical sickle cell crisis, no evidence of scleral icterus. The patient is nontoxic-appearing, I am very familiar with this patient. We will treat her pain aggressively, I do not see an indication for laboratory studies at this time as she does not appear to be acutely decompensated, this appears to be similar to her prior episodes of sickle cell pain crisis. Critical care attestation.: If time is entered above; I have spent that time in minutes in the direct care of this critically ill patient, excluding procedure time. ED Disposition Clinical Impression: Sickle cell pain crisis, Hypertension, Viral syndrome Disposition: DC-01 TO HOME OR SELFCARE Is pt being admited?: No Does the pt Need Aspirin: No Condition: Stable Instructions: Hypertension (ED) Additional Instructions: Rest, avoid heavy lifting, and avoid strenuous physical activities. Continue current outpatient pain medications. Patient may alternate ice packs and heat packs, along with physical therapy for physical pain, and may also take [id number] Tylenol/ibuprofen as needed for pain. Please follow-up with your primary care doctor or event executive within the next week. Please return to the emergency room right away with new pain, worsening pain, migration of pain, projectile vomiting, change in mental status, confu maxime, inability to tolerate liquid feeds, new, worsened or different symptoms not present on the initial emergency room evaluation. Referrals: PATTIE KEANE MD [Referring] - 3-5 Days Forms: Work/School Release Form(ED)
[2020-08-14 20:47] VITALS: BP 149/81
== END 2020-08-14 16:05 | disposition home or self-care (01) ==
LOC: ED 12:49
DX: D57.00 Hb-SS disease with crisis, unspecified (principal); I10 Essential (primary) hypertension; B34.9 Viral infection, unspecified; M19.91 Primary osteoarthritis, unspecified site; J45.909 Unspecified asthma, uncomplicated; Z90.49 Acquired absence of other specified parts of digestive tract; Z98.890 Other specified postprocedural states; Z79.899 Other long term (current) drug therapy; Z88.8 Allergy status to other drugs, medicaments and biological substances
CPT/HCPCS: 96372; 99283; J1170; Q0162

== ENCOUNTER 2020-09-09 12:00 | Emergency (ER) | payer MEDICAID ==
--- NOTE | 2020-09-09 12:06 | Event Note ---
ED Screening Note Date of service: 09/09/20 Time: 12:05 ED Screening Note: Patient complains of sickle cell crisis This initial assessment/diagnostic orders/clinical plan/treatment(s) is/are subject to change based on patients health status, clinical progression and re- assessment by fellow clinical providers in the ED. Further treatment and workup at subsequent clinical providers discretion. Patient/guardian urged not to elope from the ED as their condition may be serious if not clinically assessed and managed. Initial orders include: Main ED Labs
[2020-09-09] MEDS ORDERED: ONDANSETRON 4 MG/2 ML INJ IV ONE (12:19)
[2020-09-09] MEDS ORDERED: HYDROmorphone 1 MG/1 ML INJ IV ONE ×3 (12:19→14:58)
[2020-09-09] MEDS ORDERED: KETOROLAC 30 MG/1 ML INJ IV ONE (12:20)
[2020-09-09] MEDS ORDERED: diphenhydrAMINE 50 MG/ML VIAL IV ONE (12:20)
--- NOTE | 2020-09-09 12:22 | Emergency Department Report ---
HPI - General Chief Complaint: Sickle Cell Crisis Time Seen by Provider: 09/09/20 12:04 - HPI HPI: Room 25 The patient is a 35-year-old female present with a chief complaint of sickle cell pain crisis. Patient states yesterday she developed pain in her lower back and bilateral lower extremities consistent with her sickle cell pain crises. Patient denies history of fever. Patient denies dysuria. Patient gives her pain a score of 10/10 ED Past Medical Hx - Past Medical History Hx Hypertension: Yes Hx Sickle Cell Disease: Yes Hx Arthritis: Yes Hx Asthma: Yes Additional medical history: ANEMIA, multiple port infections - Surgical History Hx Cholecystectomy: Yes Additional Surgical History: , port removed June 2014. PICC line left upper arm (11/19/2014). . - Family History Family history: no significant - Social History Smoking Status: Never Smoker Substance Use Type: None (Denies illicit drug use) - Medications Home Medications: Home Medications Medication Instructions Recorded Confirmed Last Taken Type Methadone [Dolophine] 20 mg PO BID 03/19/19 03/22/20 08/18/19 History Folic Acid [Folvite] 1 mg PO DAILY #30 tablet 08/23/19 03/22/20 01/29/20 Rx Hydroxyurea 500 mg PO DAILY #30 cap 08/23/19 03/22/20 Unknown Rx amLODIPine 10 mg PO QDAY #30 tablet 08/23/19 03/22/20 01/28/20 Rx cloNIDine [Catapres] 0.2 mg PO BID #60 08/23/19 03/22/20 01/28/20 Rx lisinopriL [Zestril TAB] 40 mg PO QDAY #30 tablet 08/23/19 03/22/20 01/28/20 Rx Albuterol Mdi (or & Nicu Only) 2 puff IH QID PRN #1 inhalation 01/13/20 03/22/20 01/29/20 11:27 Rx [ProAir HFA Inhaler] Percocet 5/325 mg 10 mg PO PRN 01/29/20 03/22/20 01/28/20 History HYDROcodone/APAP 5-325 [[place] 1 - 2 each PO Q6HR PRN #10 tablet 04/05/20 Unknown Rx 5/325] HYDROcodone/APAP 5-325 [[place] 1 - 2 each PO Q6HR PRN #14 tablet 09/09/20 Unknown Rx 5/325] ED Review of Systems ROS: Stated complaint: SICKLE CELL CRISIS Other details as noted in HPI Constitutional: denies: fever Eyes: denies: eye pain ENT: denies: throat pain Respiratory: no symptoms reported Cardiovascular: denies: chest pain Endocrine: no symptoms reported Gastrointestinal: denies: abdominal pain Genitourinary: denies: dysuria Musculoskeletal: back pain Neurological: denies: headache Hematological/Lymphatic: other (Sickle cell pain crisis) Physical Exam - Physical Exam Vital Signs: Vital Signs 09/09/20 12:05 Temperature 98.6 F Pulse Rate 77 Respiratory 18 Rate Blood Pressure 171/79 O2 Sat by Pulse 95 Oximetry Physical Exam: GENERAL: The patient is well-developed well-nourished female lying on stretcher appearing to be in mild discomfort. [] HEENT: Normocephalic. Atraumatic. Extraocular motions are intact. Patient has moist mucous membranes. NECK: Supple. Trachea midline CHEST/LUNGS: Clear to auscultation. There is no respiratory distress noted. HEART/CARDIOVASCULAR: Regular. There is no tachycardia. There is no gallop rub or murmur. ABDOMEN: Abdomen is soft, nontender. Patient has normal bowel sounds. There is no abdominal distention. SKIN: There is no rash. There is no edema. There is no diaphoresis. NEURO: The patient is awake, alert, and oriented. The patient is cooperative. The patient has normal speech MUSCULOSKELETAL:There is no evidence of acute injury. ED Course Vital Signs 09/09/20 12:05 Temperature 98.6 F Pulse Rate 77 Respiratory 18 Rate Blood Pressure 171/79 O2 Sat by Pulse 95 Oximetry ED Medical Decision Making - Lab Data Result diagrams: 09/09/20 12:47 09/09/20 12:47 Laboratory Tests 09/09/20 09/09/20 12:47 12:47 WBC 15.1 H RBC 2.70 L Hgb 8.4 L Hct 24.9 L MCV 92 MCH 31 MCHC 34 RDW 21.9 H Plt Count 369 Lymph % (Auto) 28.9 [place] % (Auto) 8.7 H Eos % (Auto) 2.7 Baso % (Auto) 1.0 Lymph # (Auto) 4.4 [place] # (Auto) 1.3 H Eos # (Auto) 0.4 Baso # (Auto) 0.2 H Seg Neutrophils % 58.7 Seg Neutrophils # 8.8 H Percent Retic 10.17 H Sodium 140 Potassium 3.8 Chloride 104.0 Carbon Dioxide 28 Anion Gap 12 BUN 11 Creatinine 1.0 Estimated GFR > 60 BUN/Creatinine Ratio 11 Glucose 95 Calcium 8.9 Total Bilirubin 1.30 H AST 24 ALT 26 Alkaline Phosphatase 187 H Total Protein 6.7 Albumin 3.5 L Albumin/Globulin Ratio 1.1 - Differential Diagnosis Sickle cell pain crisis Critical care attestation.: If time is entered above; I have spent that time in minutes in the direct care of this critically ill patient, excluding procedure time. ED Disposition Clinical Impression: Sickle cell pain crisis Disposition: TO HOME OR SELFCARE Is pt being admited?: No Does the pt Need Aspirin: No Condition: Stable Additional Instructions: Return to the emergency department should you develop worsening symptoms, inability to tolerate food or liquids, high fever or any other concerns Prescriptions: HYDROcodone/APAP 5-325 [[place] 5/325] 1 - 2 each PO Q6HR PRN #14 tablet PRN Reason: Pain Referrals: SEMAJ FLYNN DO [Staff Physician] - 3-5 Days Time of Disposition: 15:01
[2020-09-09] MEDS ORDERED: HYDROmorphone 2 MG/1 ML INJ IV ONE (12:48)
[2020-09-09 12:58] LABS: Basophils # (Auto) 0.2 K/mm3 (0.0-0.1); Eosinophils # (Auto) 0.4 K/mm3 (0.0-0.4); Eosinophils % (Auto) 2.7 % (0.0-4.3); Hematocrit 24.9 % (30.3-42.9); Hemoglobin 8.4 gm/dl (10.1-14.3); Lymphocytes # (Auto) 4.4 K/mm3 (1.2-5.4); Lymphocytes % (Auto) 28.9 % (13.4-35.0); Mean Corpuscular HGB Conc 34 % (30-34); Mean Corpuscular Volume 92 fl (79-97); Monocytes # (Auto) 1.3 K/mm3 (0.0-0.8); Monocytes % (Auto) 8.7 % (0.0-7.3); Platelet Count 369 K/mm3 (140-440)
[2020-09-09] MEDS ORDERED: D5W/0.2% NACL 1,000 ML IV SCH (13:00)
[2020-09-09 13:18] LABS: Red Cell Distribution Width 21.9 % (13.2-15.2)
[2020-09-09 13:29] LABS: Alanine Aminotransferase 26 units/L (7-56); Albumin 3.5 g/dL (3.9-5); BUN/Creatinine Ratio 11; Blood Urea Nitrogen 11 mg/dL (7-17); Calcium 8.9 mg/dL (8.4-10.2); Hemolysis Index 9
[2020-09-09 15:36] VITALS: BP 151/80
== END 2020-09-09 15:25 | disposition home or self-care (01) ==
LOC: ED 12:00
DX: D57.00 Hb-SS disease with crisis, unspecified (principal); I10 Essential (primary) hypertension; M19.91 Primary osteoarthritis, unspecified site; J45.909 Unspecified asthma, uncomplicated; Z90.49 Acquired absence of other specified parts of digestive tract; Z98.890 Other specified postprocedural states; Z79.899 Other long term (current) drug therapy; Z88.8 Allergy status to other drugs, medicaments and biological substances
CPT/HCPCS: 36415; 80053; 85025; 85045; 96361; 96374; 96375; 96376; 99283; J1170; J1200; J1642; J1885; J2405

== ENCOUNTER 2020-10-01 10:22 | Emergency (ER) | payer MEDICAID ==
[2020-10-01] MEDS ORDERED: ONDANSETRON 4 MG/2 ML INJ IV ONE (11:43)
[2020-10-01] MEDS ORDERED: HYDROmorphone 1 MG/1 ML INJ IV ONE ×3 (11:43→13:42)
[2020-10-01] MEDS ORDERED: diphenhydrAMINE 50 MG/ML VIAL IV ONE (11:43)
[2020-10-01] MEDS ORDERED: D5W/0.2% NACL 1,000 ML IV SCH (13:00)
--- NOTE | 2020-10-01 13:52 | Emergency Department Report ---
ED General Adult HPI - General Chief complaint: Sickle Cell Crisis Stated complaint: SICKLE CELL CRISIS Time Seen by Provider: 10/01/20 11:40 Source: patient Mode of arrival: Ambulatory Limitations: No Limitations - History of Present Illness Initial comments: CC: " My legs my back hurt." HPI: This is a 35-year-old female with history of hemoglobin SS disease who presents with 1 day of back and bilateral leg pain. 8 out of 10 in severity. Achy in nature. Pain is generalized. Patient denies headache, fever, chest pain, cough, shortness of breath. She has been around family members during the holidays. However she socially isolated in her room in order to avoid infection. Gradual onset of symptoms. No radiation. Pain is constant persiste nt. Pain does not change with touch or movement. -: Gradual, days(s) (1) Location: back, left, right, lower extremity Severity scale (0 -10): 8 Quality: aching Consistency: constant Improves with: none Worsens with: none Associated Symptoms: denies other symptoms Treatments Prior to Arrival: none - Related Data Home Medications Medication Instructions Recorded Confirmed Last Taken Methadone [Dolophine] 20 mg PO BID 03/19/19 03/22/20 08/18/19 Percocet 5/325 mg 10 mg PO PRN 01/29/20 03/22/20 01/28/20 Previous Rx's Medication Instructions Recorded Last Taken Type Folic Acid [Folvite] 1 mg PO DAILY #30 tablet 08/23/19 01/29/20 Rx Hydroxyurea 500 mg PO DAILY #30 cap 08/23/19 Unknown Rx amLODIPine 10 mg PO QDAY #30 tablet 08/23/19 01/28/20 Rx cloNIDine [Catapres] 0.2 mg PO BID #60 08/23/19 01/28/20 Rx lisinopriL [Zestril TAB] 40 mg PO QDAY #30 tablet 08/23/19 01/28/20 Rx Albuterol Mdi (or & Nicu Only) 2 puff IH QID PRN #1 inhalation 01/13/20 01/29/20 11:27 Rx [ProAir HFA Inhaler] HYDROcodone/APAP 5-325 [[place] 1 - 2 each PO Q6HR PRN #10 tablet 04/05/20 Unknown Rx 5/325] HYDROcodone/APAP 5-325 [[place] 1 - 2 each PO Q6HR PRN #14 tablet 09/09/20 Unknown Rx 5/325] Allergies Allergy/AdvReac Type Severity Reaction Status Date / Time morphine Allergy Shortness Verified 10/01/20 10:43 of Breath ED Review of Systems ROS: Stated complaint: SICKLE CELL CRISIS Other details as noted in HPI Comment: All other systems reviewed and negative Constitutional: denies: fever, malaise Respiratory: denies: cough Cardiovascular: denies: chest pain Gastrointestinal: denies: abdominal pain, nausea, vomiting Musculoskeletal: myalgia ED Past Medical Hx - Past Medical History Previous Medical History?: Yes Hx Hypertension: Yes Hx Sickle Cell Disease: Yes Hx Arthritis: Yes Hx Asthma: Yes Additional medical history: ANEMIA, multiple port infections - Surgical History Past Surgical History?: Yes Hx Cholecystectomy: Yes Additional Surgical History: , port removed June 2014. PICC line left upper arm (11/19/2014). . - Social History Smoking Status: Never Smoker - Medications Home Medications: Home Medications Medication Instructions Recorded Confirmed Last Taken Type Methadone [Dolophine] 20 mg PO BID 03/19/19 03/22/20 08/18/19 History Folic Acid [Folvite] 1 mg PO DAILY #30 tablet 08/23/19 03/22/20 01/29/20 Rx Hydroxyurea 500 mg PO DAILY #30 cap 08/23/19 03/22/20 Unknown Rx amLODIPine 10 mg PO QDAY #30 tablet 08/23/19 03/22/20 01/28/20 Rx cloNIDine [Catapres] 0.2 mg PO BID #60 08/23/19 03/22/20 01/28/20 Rx lisinopriL [Zestril TAB] 40 mg PO QDAY #30 tablet 08/23/19 03/22/20 01/28/20 Rx Albuterol Mdi (or & Nicu Only) 2 puff IH QID PRN #1 inhalation 01/13/20 03/22/20 01/29/20 11:27 Rx [ProAir HFA Inhaler] Percocet 5/325 mg 10 mg PO PRN 01/29/20 03/22/20 01/28/20 History HYDROcodone/APAP 5-325 [[place] 1 - 2 each PO Q6HR PRN #10 tablet 04/05/20 Unknown Rx 5/325] HYDROcodone/APAP 5-325 [[place] 1 - 2 each PO Q6HR PRN #14 tablet 09/09/20 Unknown Rx 5/325] ED Physical Exam - General Limitations: No Limitations General appearance: alert, in no apparent distress - Head Head exam: Present: atraumatic, normocephalic - Eye Eye exam: Present: normal appearance - ENT ENT exam: Present: mucous membranes moist - Neck Neck exam: Present: normal inspection, full ROM - Respiratory Respiratory exam: Present: normal lung sounds bilaterally. Absent: respiratory distress, wheezes, rales, stridor - Cardiovascular Cardiovascular Exam: Present: regular rate, normal rhythm, normal heart sounds, other (Left chest: Port site clean closed without erythema fluctuance tenderness). Absent: systolic murmur, diastolic murmur, rubs, gallop - GI/Abdominal GI/Abdominal exam: Present: soft, normal bowel sounds. Absent: distended, guarding, rebound - Extremities Exam Extremities exam: Present: normal inspection - Neurological Exam Neurological exam: Present: alert, oriented X3 - Psychiatric Psychiatric exam: Present: normal affect, normal mood - Skin Skin exam: Present: warm, dry, intact, normal color. Absent: rash ED Course Vital Signs 10/01/20 10:47 Temperature 98.2 F Pulse Rate 82 Respiratory 20 Rate Blood Pressure 210/112 O2 Sat by Pulse 99 Oximetry ED Medical Decision Making - Medical Decision Making Clinical impression sickle cell disease pain crisis. No evidence of severe infectious or embolic complications Patient felt much better with IV hydration, IV analgesia. She is discharged home. Critical care attestation.: If time is entered above; I have spent that time in minutes in the direct care of this critically ill patient, excluding procedure time. ED Disposition Clinical Impression: Anemia, sickle cell with crisis Disposition: DC-01 TO HOME OR SELFCARE Is pt being admited?: No Does the pt Need Aspirin: No Condition: Stable Referrals: SHAYE ESPINOZA MD [Staff Physician] - as needed
[2020-10-01 16:13] VITALS: BP 174/92
== END 2020-10-01 15:38 | disposition home or self-care (01) ==
LOC: ED 10:22
DX: D57.818 Other sickle-cell disorders with crisis with other specified complication (principal); D64.9 Anemia, unspecified; I10 Essential (primary) hypertension; M13.88 Other specified arthritis, other site; J45.909 Unspecified asthma, uncomplicated; Z90.49 Acquired absence of other specified parts of digestive tract; Z98.890 Other specified postprocedural states; Z88.6 Allergy status to analgesic agent
CPT/HCPCS: 96361; 96374; 96375; 96376; 99283; J1170; J1200; J1642; J2405

== ENCOUNTER 2020-10-05 10:55 | Emergency (ER) | payer MEDICAID | END 2020-10-05 15:16 | LOC: ED 10:55 | DX: D57.1 Sickle-cell disease without crisis (principal); Z53.21 Procedure and treatment not carried out due to patient leaving prior to being seen by health care provider ==

== ENCOUNTER 2020-10-07 12:14 | Emergency (ER) | payer MEDICAID ==
--- NOTE | 2020-10-07 12:32 | Event Note ---
ED Screening Note Date of service: 10/07/20 Time: 12:31 ED Screening Note: Patient presents with complaints of low back pain and bilateral leg pain due to sickle cell pain crisis x yesterday This initial assessment/diagnostic orders/clinical plan/treatment(s) is/are subject to change based on patients health status, clinical progression and re- assessment by fellow clinical providers in the ED. Further treatment and workup at subsequent clinical providers discretion. Patient/guardian urged not to elope from the ED as their condition may be serious if not clinically assessed and managed. Initial orders include: Main ED Labs
[2020-10-07] MEDS ORDERED: ONDANSETRON 4 MG/2 ML INJ IV ONE (12:49)
[2020-10-07] MEDS ORDERED: diphenhydrAMINE 25 MG/10 ML ORAL LIQUID PO ONE (12:49)
[2020-10-07] MEDS ORDERED: HYDROmorphone 2 MG/1 ML INJ IV ONE ×3 (12:49→15:32)
[2020-10-07] MEDS ORDERED: amLODIPine 10 MG TAB PO STA (12:50)
[2020-10-07] MEDS ORDERED: LISINOPRIL 40 MG TAB PO STA (12:50)
[2020-10-07] MEDS ORDERED: cloNIDine 0.2 MG TAB PO STA (12:50)
--- NOTE | 2020-10-07 13:38 | Emergency Department Report ---
ED General Adult HPI - General Chief complaint: Sickle Cell Crisis Stated complaint: SICKLE CELL PUI?: No Time Seen by Provider: 10/07/20 12:21 Source: patient, RN notes reviewed, old records reviewed Mode of arrival: Ambulatory Limitations: No Limitations - History of Present Illness Initial comments: The patient was evaluated in the emergency department for symptoms described in the history of present illness. He/she was evaluated in the context of the global COVID-19 pandemic, which necessitated consideration that the patient might be at risk for infection with the virus that causes COVID-19. Institutional protocols and algorithms that pertain to the evaluation of patients at risk for COVID-19 are in a state of rapid change based on information released by regulatory bodies including the CDC and federal and state organizations. These policies and algorithms were followed during the patient's care in the emergency department. Please note that these policies, procedures and recommendations changed on a rapid basis. The patient is a 35-year-old female. She is well known to myself previously. She has a history of obesity, hypertension, questionable medication noncompliance with antihypertensive therapy, and reports a history of sickle cell disease. Her railway station manager is Dr. Keane. The patient is a frequent utilizer of this emergency room, secondary to her report of chronic sickle cell pain. Today, the patient presents to the ER with her typical complaint of sickle cell pain crisis. She states that she is not . She has bilateral lower extremity pain, throbbing lower back pain. She denies fever, cough, urinary symptoms, new or different sore throat, loss of taste and loss of smell. She reports her symptoms today are similar to prior episodes of sickle cell crisis pain. Her pain is typically improved with hydromorphone, Zofran, and Benadryl. -: Gradual, days(s) Location: back, left, right, lower extremity Severity scale (0 -10): 10 Quality: aching Consistency: constant Improves with: medication, rest Worsens with: movement - Related Data Home Medications Medication Instructions Recorded Confirmed Last Taken Methadone [Dolophine] 20 mg PO BID 03/19/19 03/22/20 08/18/19 Percocet 5/325 mg 10 mg PO PRN 01/29/20 03/22/20 01/28/20 Previous Rx's Medication Instructions Recorded Last Taken Type Folic Acid [Folvite] 1 mg PO DAILY #30 tablet 08/23/19 01/29/20 Rx Hydroxyurea 500 mg PO DAILY #30 cap 08/23/19 Unknown Rx amLODIPine 10 mg PO QDAY #30 tablet 08/23/19 01/28/20 Rx cloNIDine [Catapres] 0.2 mg PO BID #60 08/23/19 01/28/20 Rx lisinopriL [Zestril TAB] 40 mg PO QDAY #30 tablet 08/23/19 01/28/20 Rx Albuterol Mdi (or & Nicu Only) 2 puff IH QID PRN #1 inhalation 01/13/20 01/29/20 11:27 Rx [ProAir HFA Inhaler] HYDROcodone/APAP 5-325 [[place] 1 - 2 each PO Q6HR PRN #10 tablet 04/05/20 Unknown Rx 5/325] HYDROcodone/APAP 5-325 [[place] 1 - 2 each PO Q6HR PRN #14 tablet 09/09/20 Unknown Rx 5/325] Allergies Allergy/AdvReac Type Severity Reaction Status Date / Time morphine Allergy Shortness Verified 10/01/20 10:43 of Breath ED Review of Systems ROS: Stated complaint: SICKLE CELL Other details as noted in HPI Constitutional: denies: fever Eyes: denies: eye discharge ENT: denies: epistaxis Respiratory: denies: cough Cardiovascular: denies: chest pain Gastrointestinal: denies: abdominal pain Genitourinary: denies: dysuria Musculoskeletal: back pain, arthralgia, myalgia Hematological/Lymphatic: denies: easy bleeding ED Past Medical Hx - Past Medical History Previous Medical History?: Yes Hx Hypertension: Yes Hx Sickle Cell Disease: Yes Hx Arthritis: Yes Hx Asthma: Yes Additional medical history: ANEMIA, multiple port infections - Surgical History Past Surgical History?: Yes Hx Cholecystectomy: Yes Additional Surgical History: , port removed June 2014. PICC line left upper arm (11/19/2014). . - Social History Smoking Status: Never Smoker Substance Use Type: None - Medications Home Medications: Home Medications Medication Instructions Recorded Confirmed Last Taken Type Methadone [Dolophine] 20 mg PO BID 03/19/19 03/22/20 08/18/19 History Folic Acid [Folvite] 1 mg PO DAILY #30 tablet 08/23/19 03/22/20 01/29/20 Rx Hydroxyurea 500 mg PO DAILY #30 cap 08/23/19 03/22/20 Unknown Rx amLODIPine 10 mg PO QDAY #30 tablet 08/23/19 03/22/20 01/28/20 Rx cloNIDine [Catapres] 0.2 mg PO BID #60 08/23/19 03/22/20 01/28/20 Rx lisinopriL [Zestril TAB] 40 mg PO QDAY #30 tablet 08/23/19 03/22/20 01/28/20 Rx Albuterol Mdi (or & Nicu Only) 2 puff IH QID PRN #1 inhalation 01/13/20 03/22/20 01/29/20 11:27 Rx [ProAir HFA Inhaler] Percocet 5/325 mg 10 mg PO PRN 01/29/20 03/22/20 01/28/20 History HYDROcodone/APAP 5-325 [[place] 1 - 2 each PO Q6HR PRN #10 tablet 04/05/20 Unknown Rx 5/325] HYDROcodone/APAP 5-325 [[place] 1 - 2 each PO Q6HR PRN #14 tablet 09/09/20 Unknown Rx 5/325] ED Physical Exam - General Limitations: No Limitations General appearance: alert, anxious, in distress, obese - Head Head exam: Present: atraumatic, normocephalic - Eye Eye exam: Present: normal appearance, EOMI. Absent: nystagmus - ENT ENT exam: Present: normal exam, normal orophraynx, mucous membranes moist, normal external ear exam - Neck Neck exam: Present: normal inspection, full ROM. Absent: tenderness, meningismus - Respiratory Respiratory exam: Present: normal lung sounds bilaterally. Absent: respiratory distress, wheezes, rales, rhonchi, stridor, chest wall tenderness - Cardiovascular Cardiovascular Exam: Present: regular rate, normal rhythm, normal heart sounds. Absent: bradycardia, tachycardia, irregular rhythm, systolic murmur, diastolic murmur, rubs, gallop - GI/Abdominal GI/Abdominal exam: Present: soft. Absent: distended, tenderness, guarding, rebound, rigid, pulsatile mass - Extremities Exam Extremities exam: Present: normal inspection, full ROM, other (2+ pulses noted in the bilateral upper and lower extremities. Compartments are soft. There is mild lower extremity lung bony tenderness. There is no lower extremity redness, pus or streaking.). Absent: calf tenderness - Back Exam Back exam: Present: normal inspection, paraspinal tenderness. Absent: CVA tenderness (R), CVA tenderness (L), vertebral tenderness - Neurological Exam Neurological exam: Present: alert, oriented X3, other (No facial droop. Tongue midline. Extraocular movements intact bilaterally. Facial sensation intact to light touch in V1, V2, V3 distribution bilaterally. 5 and a 5 strength in 4 extremities. Sensation intact to light touch in 4 extremities.). Absent: motor sensory deficit - Psychiatric Psychiatric exam: Present: anxious - Skin Skin exam: Present: warm, dry, intact, normal color. Absent: rash ED Course Vital Signs 10/07/20 10/07/20 10/07/20 12:16 13:06 13:16 Temperature 98.6 F Pulse Rate 89 84 82 Respiratory 18 15 21 Rate Blood Pressure Blood Pressure 227/110 [Right] O2 Sat by Pulse 95 97 Oximetry 10/07/20 10/07/20 10/07/20 13:30 13:44 13:45 Temperature Pulse Rate 84 94 H 93 H Respiratory 16 Rate Blood Pressure 189/98 189/98 Blood Pressure [Right] O2 Sat by Pulse 97 Oximetry 10/07/20 10/07/20 10/07/20 13:46 14:00 14:16 Temperature 98.2 F Pulse Rate 91 H 84 81 Respiratory 13 19 21 Rate Blood Pressure 189/98 177/90 177/90 Blood Pressure [Right] O2 Sat by Pulse 94 96 94 Oximetry 10/07/20 10/07/20 10/07/20 14:30 14:46 15:00 Temperature Pulse Rate 79 92 H 78 Respiratory 20 27 H 25 H Rate Blood Pressure 184/87 171/90 196/100 Blood Pressure [Right] O2 Sat by Pulse 96 95 94 Oximetry 10/07/20 10/07/20 10/07/20 15:16 15:30 15:46 Temperature Pulse Rate 81 90 87 Respiratory 19 17 15 Rate Blood Pressure 145/84 145/84 137/89 Blood Pressure [Right] O2 Sat by Pulse 94 96 95 Oximetry 10/07/20 10/07/20 15:48 15:49 Temperature Pulse Rate Respiratory 18 18 Rate Blood Pressure Blood Pressure [Right] O2 Sat by Pulse Oximetry - Reevaluation(s) Reevaluation #1: 10/07/20 13:36 Differential diagnosis, including but not limited to: Chronic pain, chronic hypertension, sickle cell crisis Assessment and plan: 35-year-old female, who is well-known to myself, who is a frequent utilizer of this emergency room, presenting with her typical sickle cell crisis and chronic hypertension. Do not see indication for laboratory studies, patient does not offer fever, cough, urinary symptoms. States her pain today similar to prior episodes of sickle cell pain. Nursing team to access port, give pain medication, gentle fluids, and reassess. Reevaluation #2: 10/07/20 15:33 Blood pressure improved. Nursing team gave a second round of hydromorphone at approximately 2:45 PM. Patient written for third round of hydromorphone. Presentation today is similar to prior presentations. Patient can follow-up with her outpatient railway station manager/primary care doctor. We will discharge at this time. Given that she follows up with an outpatient railway station manager, will defer to her primary/specialist to dispense for the narcotics. In addition, she has a received prescription for oxycodone, methadone on September 27 as follows: 09/27/2020 4 09/27/2020 OXYCODONE-ACETAMINOPHEN 10-325 180.0 30 DO COL [id number] [facility] ([id number]) 0 90.0 MME [place] 09/27/2020 4 09/27/2020 METHADONE HCL 10 MG TABLET 180.0 30 DO COL [id number] [place] ([id number]) 0 180.0 [place] 09/27/2020 4 09/27/2020 OXYCODONE-ACETAMINOPHEN 10-325 180.0 30 DO COL [id number] [place] ([id number]) 0 90.0 MME Medicaid [place] 09/27/2020 4 09/27/2020 METHADONE HCL 10 MG TABLET 180.0 30 DO COL [id number] [place] ([id number]) 0 180.0 [place] 08/20/2020 4 08/20/2020 OXYCODONE-ACETAMINOPHEN 10-325 180.0 30 DO COL [id number] [place] ([id number]) 0 90.0 [place] 08/20/2020 4 08/20/2020 METHADONE HCL 10 MG TABLET 180.0 30 DO COL [id number] [place] ([id number]) 0 180.0 [place] 07/21/2020 4 07/19/2020 OXYCODONE-ACETAMINOPHEN 10-325 180.0 30 DO COL [id number] [facility] ([id number]) 0 90.0 MME Medicaid [place] 07/21/2020 4 07/19/2020 METHADONE HCL 10 MG TABLET 180.0 30 DO COL [id number] [place] ([id number]) 0 180.0 MME [place] 06/23/2020 4 06/21/2020 OXYCODONE-ACETAMINOPHEN 10-325 180.0 30 DO COL [id number] [facility] ([id number]) 0 90.0 MME [place] 06/23/2020 4 06/21/2020 METHADONE HCL 10 MG TABLET 180.0 30 DO COL [id number] [facility] ([id number]) 0 180.0 MME [place] 05/26/2020 4 05/25/2020 OXYCODONE-ACETAMINOPHEN 10-325 180.0 30 DO COL [id number] [facility] ([id number]) 0 90.0 MME Private Pay [place] 05/26/2020 4 05/25/2020 METHADONE HCL 10 MG TABLET 180.0 30 DO COL [id number] [place] ([id number]) 0 180.0 MME [place] 04/26/2020 4 04/26/2020 OXYCODONE-ACETAMINOPHEN 10-325 180.0 30 DO COL [id number] [facility] ([id number]) 0 90.0 MME [place] 04/26/2020 4 04/26/2020 METHADONE HCL 10 MG TABLET 180.0 30 DO COL [id number] [facility] ([id number]) 0 180.0 MME [place] 03/26/2020 4 03/26/2020 OXYCODONE-ACETAMINOPHEN 10-325 180.0 30 DO COL [id number] [facility] ([id number]) 0 90.0 MME [place] 03/26/2020 4 03/26/2020 METHADONE HCL 10 MG TABLET 180.0 30 DO COL [id number] [place] ([id number]) 0 180.0 MME [place] 03/05/2020 3 03/05/2020 OXYCODONE-ACETAMINOPHEN 10-325 180.0 22 DO COL [id number] [place] ([id number]) 0 122.73 MME [place] 02/25/2020 4 02/19/2020 OXYCODONE-ACETAMINOPHEN 10-325 12.0 3 [place] RUB [id number] [facility] ([id number]) 0 60.0 MME [place] 02/09/2020 3 02/09/2020 OXYCODONE-ACETAMINOPHEN 10-325 180.0 22 DO COL [id number] [place] ([id number]) 0 122.73 MME [place] 01/14/2020 4 01/14/2020 OXYCODONE-ACETAMINOPHEN 10-325 180.0 30 DO COL [id number] [place] ([id number]) 0 90.0 MME [place] 01/10/2020 4 01/10/2020 OXYCODONE-ACETAMINOPHEN 5-325 24.0 3 JE THO [id number] [place] ([id number]) 0 60.0 MME [place] 12/26/2019 3 12/26/2019 OXYCODONE-ACETAMINOPHEN 10-325 180.0 22 DO COL [id number] [place] ([id number]) 0 122.73 MME Medicaid [place] 12/18/2019 3 12/18/2019 OXYCODONE-ACETAMINOPHEN 10-325 18.0 5 [place] [id number] [place] ([id number]) 0 54.0 MME [place] 11/27/2019 2 11/27/2019 OXYCODONE-ACETAMINOPHEN 10-325 180.0 15 DO COL [id number] [place] ([id number]) 0 180.0 MME [place] ED Medical Decision Making - Lab Data Vital Signs 10/07/20 12:16 Temperature 98.6 F Pulse Rate 89 Respiratory 18 Rate Blood Pressure 227/110 [Right] O2 Sat by Pulse 95 Oximetry Vital Signs 10/07/20 10/07/20 10/07/20 12:16 13:44 13:45 Temperature 98.6 F Pulse Rate 89 94 H 93 H Respiratory 18 Rate Blood Pressure 189/98 189/98 Blood Pressure 227/110 [Right] O2 Sat by Pulse 95 Oximetry 10/07/20 14:00 Temperature 98.2 F Pulse Rate 79 Respiratory 18 Rate Blood Pressure 155/102 Blood Pressure [Right] O2 Sat by Pulse 100 Oximetry Critical care attestation.: If time is entered above; I have spent that time in minutes in the direct care of this critically ill patient, excluding procedure time. ED Disposition Clinical Impression: Sickle cell pain crisis, Hypertension Disposition: DC-01 TO HOME OR SELFCARE Is pt being admited?: No Does the pt Need Aspirin: No Condition: Good Instructions: Hypertension (ED) Additional Instructions: Please continue current home medications. Please follow-up with your primary care doctor, or railway station manager within the next week. Patient was found to have elevated blood pressure today. Recommend follow-up with your primary care doctor or railway station manager for elevated blood pressure within the next week. Long- term complications of hypertension and elevated blood pressure include stroke, heart attack, disability, paralysis, permanent loss of quality of life. Please return to the emergency room right away with new pain, worsened pain, migration of pain, projectile vomiting, change in mental status, confusion, inability to tolerate liquid feeds, new, worsened or different symptoms not present on the initial emergency room evaluation. Referrals: PATTIE KEANE MD [Referring] - 3-5 Days
[2020-10-07] MEDS ORDERED: D5W/0.45% NACL 1,000 ML IV SCH (14:00)
[2020-10-07 17:11] VITALS: BP 137/89
== END 2020-10-07 17:11 | disposition home or self-care (01) ==
LOC: ED 12:14
DX: D57.00 Hb-SS disease with crisis, unspecified (principal); I10 Essential (primary) hypertension; M19.91 Primary osteoarthritis, unspecified site; J45.909 Unspecified asthma, uncomplicated; Z90.49 Acquired absence of other specified parts of digestive tract; Z98.890 Other specified postprocedural states; Z79.899 Other long term (current) drug therapy; Z88.8 Allergy status to other drugs, medicaments and biological substances
CPT/HCPCS: 96374; 96375; 96376; 99283; J1170; J1642; J2405; Q0163

== ENCOUNTER 2020-10-11 11:13 | Emergency (ER) | payer MEDICAID ==
[2020-10-12 01:17] LABS: Basophils # (Auto) 0.4 K/mm3 (0.0-0.1); Basophils % (Auto) 1.9 % (0.0-1.8); Eosinophils # (Auto) 0.5 K/mm3 (0.0-0.4); Eosinophils % (Auto) 2.7 % (0.0-4.3); Hematocrit 27.3 % (30.3-42.9); Hemoglobin 9.1 gm/dl (10.1-14.3); Lymphocytes # (Auto) 4.5 K/mm3 (1.2-5.4); Lymphocytes % (Auto) 23.7 % (13.4-35.0); Mean Corpuscular HGB Conc 33 % (30-34); Mean Corpuscular Volume 92 fl (79-97); Monocytes # (Auto) 1.4 K/mm3 (0.0-0.8); Monocytes % (Auto) 7.5 % (0.0-7.3); Platelet Count 513 K/mm3 (140-440); Red Blood Count 2.97 M/mm3 (3.65-5.03); Red Cell Distribution Width 21.8 % (13.2-15.2)
[2020-10-12 01:25] LABS: Alanine Aminotransferase 28 units/L (7-56); Albumin 3.6 g/dL (3.9-5); BUN/Creatinine Ratio 10; Blood Urea Nitrogen 10 mg/dL (7-17); Calcium 9.4 mg/dL (8.4-10.2); Hemolysis Index 7
[2020-10-12] MEDS ORDERED: HYDROmorphone 2 MG/1 ML INJ IV ONE ×3 (03:36→06:18)
[2020-10-12] MEDS ORDERED: ONDANSETRON 4 MG/2 ML INJ IV ONE (03:36)
[2020-10-12] MEDS ORDERED: KETOROLAC 30 MG/1 ML INJ IV ONE (03:36)
[2020-10-12] MEDS ORDERED: diphenhydrAMINE 50 MG/ML VIAL IV ONE ×2 (03:36→04:49)
[2020-10-12] MEDS ORDERED: HYDROmorphone 1 MG/1 ML INJ ONE (03:40)
[2020-10-12] MEDS ORDERED: D5W/0.2% NACL 1,000 ML IV SCH (04:00)
--- NOTE | 2020-10-12 05:06 | Emergency Department Report ---
ED General Adult HPI - General Chief complaint: Sickle Cell Crisis Stated complaint: SICKLE CELL CRISIS Time Seen by Provider: 10/12/20 03:30 Source: patient Mode of arrival: Ambulatory Limitations: No Limitations - History of Present Illness Initial comments: 35-year-old female with a past medical history of sickle cell disease with frequent ER visits due to the same presents to the hospital with complaints of generalized muscle skeletal pain secondary to sickle cell crisis. Patient taking Percocet 10/325 mg and methadone 10 mg without improvement. She denies fever, chest pain, Ilia pain, or shortness of breath. Symptoms are typical of her sickle cell crisis. Middleware Consultant Dr. Keane Severity scale (0 -10): 4 - Related Data Home Medications Medication Instructions Recorded Confirmed Last Taken Methadone [Dolophine] 20 mg PO BID 03/19/19 03/22/20 08/18/19 Percocet 5/325 mg 10 mg PO PRN 01/29/20 03/22/20 01/28/20 Previous Rx's Medication Instructions Recorded Last Taken Type Folic Acid [Folvite] 1 mg PO DAILY #30 tablet 08/23/19 01/29/20 Rx Hydroxyurea 500 mg PO DAILY #30 cap 08/23/19 Unknown Rx amLODIPine 10 mg PO QDAY #30 tablet 08/23/19 01/28/20 Rx cloNIDine [Catapres] 0.2 mg PO BID #60 08/23/19 01/28/20 Rx lisinopriL [Zestril TAB] 40 mg PO QDAY #30 tablet 08/23/19 01/28/20 Rx Albuterol Mdi (or & Nicu Only) 2 puff IH QID PRN #1 inhalation 01/13/20 01/29/20 11:27 Rx [ProAir HFA Inhaler] HYDROcodone/APAP 5-325 [[place] 1 - 2 each PO Q6HR PRN #10 tablet 04/05/20 Unknown Rx 5/325] HYDROcodone/APAP 5-325 [[place] 1 - 2 each PO Q6HR PRN #14 tablet 09/09/20 Unknown Rx 5/325] Allergies Allergy/AdvReac Type Severity Reaction Status Date / Time morphine Allergy Shortness Verified 10/01/20 10:43 of Breath ED Review of Systems ROS: Stated complaint: SICKLE CELL CRISIS Other details as noted in HPI Comment: All other systems reviewed and negative ED Past Medical Hx - Past Medical History Previous Medical History?: Yes Hx Hypertension: Yes Hx Sickle Cell Disease: Yes Hx Arthritis: Yes Hx Asthma: Yes Additional medical history: ANEMIA, multiple port infections - Surgical History Past Surgical History?: Yes Hx Cholecystectomy: Yes Additional Surgical History: , port removed June 2014. PICC line left upper arm (11/19/2014). . - Social History Smoking Status: Never Smoker Substance Use Type: None - Medications Home Medications: Home Medications Medication Instructions Recorded Confirmed Last Taken Type Methadone [Dolophine] 20 mg PO BID 03/19/19 03/22/20 08/18/19 History Folic Acid [Folvite] 1 mg PO DAILY #30 tablet 08/23/19 03/22/20 01/29/20 Rx Hydroxyurea 500 mg PO DAILY #30 cap 08/23/19 03/22/20 Unknown Rx amLODIPine 10 mg PO QDAY #30 tablet 08/23/19 03/22/20 01/28/20 Rx cloNIDine [Catapres] 0.2 mg PO BID #60 08/23/19 03/22/20 01/28/20 Rx lisinopriL [Zestril TAB] 40 mg PO QDAY #30 tablet 08/23/19 03/22/20 01/28/20 Rx Albuterol Mdi (or & Nicu Only) 2 puff IH QID PRN #1 inhalation 01/13/20 03/22/20 01/29/20 11:27 Rx [ProAir HFA Inhaler] Percocet 5/325 mg 10 mg PO PRN 01/29/20 03/22/20 01/28/20 History HYDROcodone/APAP 5-325 [[place] 1 - 2 each PO Q6HR PRN #10 tablet 04/05/20 Unknown Rx 5/325] HYDROcodone/APAP 5-325 [[place] 1 - 2 each PO Q6HR PRN #14 tablet 09/09/20 Unknown Rx 5/325] ED Physical Exam - General Limitations: No Limitations - Other Other exam information: General: Mild distress secondary to pain Head: Atraumatic Eyes: normal appearance ENT: Moist mucous membranes Neck: Normal appearance, no midline tenderness Chest: Clear to auscultation bilaterally CV: Regular rate and rhythm Abdomen: Soft, normal bowel sounds, nontender, nondistended, no rebound or guarding Back: Normal inspection Extremity: Normal inspection, full range of motion Neuro: Alert O x 3, no facial asymmetry, speech clear, no gross motor sensory deficit Psych: Appropriate behavior Skin: No rash ED Course Vital Signs 10/11/20 10/11/20 10/12/20 11:43 11:45 03:43 Temperature 99.0 F Pulse Rate 83 74 Respiratory 18 18 Rate Blood Pressure 202/105 Blood Pressure 200/105 [Left] O2 Sat by Pulse 95 100 Oximetry - Reevaluation(s) Reevaluation #1: 10/12/20 05:22 Patient received second dose of Dilaudid due to persistent pain. Blood pressures improving with pain medication. ED Medical Decision Making - Lab Data Result diagrams: 10/12/20 00:40 10/12/20 00:40 Lab Results 10/12/20 10/12/20 Range/Units 00:40 00:40 WBC 18.8 H (4.5-11.0) K/mm3 RBC 2.97 L (3.65-5.03) M/mm3 Hgb 9.1 L (10.1-14.3) gm/dl Hct 27.3 L (30.3-42.9) % MCV 92 (79-97) fl MCH 31 (28-32) pg MCHC 33 (30-34) % RDW 21.8 H (13.2-15.2) % Plt Count 513 H (140-440) K/mm3 Lymph % (Auto) 23.7 (13.4-35.0) % Lane % (Auto) 7.5 H (0.0-7.3) % Eos % (Auto) 2.7 (0.0-4.3) % Baso % (Auto) 1.9 H (0.0-1.8) % Lymph # (Auto) 4.5 (1.2-5.4) K/mm3 Lane # (Auto) 1.4 H (0.0-0.8) K/mm3 Eos # (Auto) 0.5 H (0.0-0.4) K/mm3 Baso # (Auto) 0.4 H (0.0-0.1) K/mm3 Seg Neutrophils % 64.2 (40.0-70.0) % Seg Neutrophils # 12.1 H (1.8-7.7) K/mm3 Percent Retic 12.30 H (0.78-2.58) % Sodium 138 (137-145) mmol/L Potassium 3.6 (3.6-5.0) mmol/L Chloride 103.3 (98-107) mmol/L Carbon Dioxide 24 (22-30) mmol/L Anion Gap 14 mmol/L BUN 10 (7-17) mg/dL Creatinine 1.0 (0.6-1.2) mg/dL Estimated GFR > 60 ml/min BUN/Creatinine Ratio 10 % Glucose 109 H (65-100) mg/dL Calcium 9.4 (8.4-10.2) mg/dL Total Bilirubin 1.50 H (0.1-1.2) mg/dL AST 26 (5-40) units/L ALT 28 (7-56) units/L Alkaline Phosphatase 176 H (35-129) units/L Total Protein 7.0 (6.3-8.2) g/dL Albumin 3.6 L (3.9-5) g/dL Albumin/Globulin Ratio 1.1 % - Medical Decision Making Patient presents to the hospital acute sickle cell exacerbation that improved with meds in ED peer hypertension also improved with pain control. Patient does not require transfusion at this time. Patient will be discharged continue her home meds and follow-up with regional engagement consultant Critical Care Time: No Critical care attestation.: If time is entered above; I have spent that time in minutes in the direct care of this critically ill patient, excluding procedure time. ED Disposition Clinical Impression: Anemia, sickle cell with crisis Disposition: DC-01 TO HOME OR SELFCARE Is pt being admited?: No Does the pt Need Aspirin: No Condition: Stable Instructions: Hemolytic Anemia Additional Instructions: Take the medication as prescribed. Follow-up with your doctor or doctor/clinic provided. Return if symptoms worsen as indicated by your discharge instructions. Referrals: PATTIE KEANE MD [Primary Care Provider] - 3-5 Days Time of Disposition: 06:21
[2020-10-12 06:29] VITALS: BP 167/90
== END 2020-10-12 06:53 | disposition home or self-care (01) ==
LOC: ED 11:13
DX: D57.00 Hb-SS disease with crisis, unspecified (principal); I10 Essential (primary) hypertension; E11.9 Type 2 diabetes mellitus without complications; J45.909 Unspecified asthma, uncomplicated; Z90.49 Acquired absence of other specified parts of digestive tract; Z98.890 Other specified postprocedural states; Z79.899 Other long term (current) drug therapy; Z88.8 Allergy status to other drugs, medicaments and biological substances
CPT/HCPCS: 36415; 80053; 85025; 85045; 96361; 96374; 96375; 96376; 99284; J1170; J1200; J1642; J1885; J2405

== ENCOUNTER 2020-10-14 11:07 | Emergency (ER) | payer MEDICAID ==
--- NOTE | 2020-10-14 12:43 | Event Note ---
ED Screening Note ED Screening Note: SOB that began yesterday evening states she was unsure if her asthma was flaring sickle cell flare began last night pain in back and legs +SOB no cough no fever no n/v/d no CP PMHx sickle cell, HTN, asthma allergy: morphine, vancomycin oxygen saturation is 94% on RA no wheezing on exam, no asthma flare This initial assessment/diagnostic orders/clinical plan/treatment(s) is/are subject to change based on patients health status, clinical progression and re- assessment by fellow clinical providers in the ED. Further treatment and workup at subsequent clinical providers discretion. Patient/guardian urged not to elope from the ED as their condition may be serious if not clinically assessed and managed. Initial orders include: labs, EKG, CXR
--- NOTE | 2020-10-14 13:30 | XRay Report ---
CHEST PA AND LATERAL VIEWS INDICATION: SOB. COMPARISON: 04/16/2020 FINDINGS: Support devices: Left-sided port is unchanged. Heart: Stable. Lungs/Pleura: Mild, somewhat reticular opacities have developed bilaterally, greater on the right. Th ere is no significant pleural effusion. IMPRESSION: 1. Somewhat reticular opacities which are new since the prior appear to be peribronchial cuffing sugg estive of lower airways disease. Signer Name: Alfie Madrigal MD Signed: 10/14/2020 1:25 PM Workstation Name: [id number]
[2020-10-14] MEDS ORDERED: cefTRIAXone/NS 1 GM/50 ML 1 GM/50 ML BAG IV ONE (15:37)
[2020-10-14] MEDS ORDERED: AZITHROMYCIN 500 MG in SODIUM CHLORIDE 0.9% 250ML 250 ML IV ONE (15:37)
[2020-10-14] MEDS ORDERED: IPRATROPIUM 0.02% NEBU 2.5 ML IH ONE (15:40)
[2020-10-14] MEDS ORDERED: ALBUTEROL 2.5 MG/3 ML NEBU IH ONE (15:40)
[2020-10-14] MEDS ORDERED: predniSONE 20 MG TAB PO ONE (15:40)
[2020-10-14] MEDS ORDERED: diphenhydrAMINE 50 MG/ML VIAL IV ONE ×3 (15:41→19:39)
[2020-10-14] MEDS ORDERED: HYDROmorphone 1 MG/1 ML INJ IV ONE ×4 (15:41→19:39)
[2020-10-14] MEDS ORDERED: ONDANSETRON 4 MG/2 ML INJ IV ONE ×2 (15:41)
[2020-10-14] MEDS ORDERED: D5W/0.2% NACL 1,000 ML IV SCH (16:00)
[2020-10-14 17:04] LABS: Hematocrit 25.5 % (30.3-42.9); Hemoglobin 8.9 gm/dl (10.1-14.3); Mean Corpuscular HGB Conc 35 % (30-34); Mean Corpuscular Volume 91 fl (79-97); Platelet Count 452 K/mm3 (140-440); Red Blood Count 2.81 M/mm3 (3.65-5.03)
[2020-10-14 17:08] LABS: Red Cell Distribution Width 21.1 % (13.2-15.2)
[2020-10-14 17:18] LABS: Alanine Aminotransferase 37 units/L (7-56); Albumin 3.6 g/dL (3.9-5); BUN/Creatinine Ratio 11; Blood Urea Nitrogen 11 mg/dL (7-17); Calcium 9.3 mg/dL (8.4-10.2); Hemolysis Index 6
[2020-10-14 17:20] LABS: C-Reactive Protein 0.9 mg/dL (0.00-1.30)
[2020-10-14 17:39] LABS: Total Cells Counted 100
[2020-10-14 17:40] LABS: Basophils % (Manual) 0 % (0.0-1.8)
[2020-10-14 17:41] LABS: Platelet Estimate Consistent w Auto
[2020-10-14 17:42] LABS: Anisocytosis 1+; Large Platelets Few; Sickle Cells 2+; Spherocytes 1+; Target Cells 1+
--- NOTE | 2020-10-14 19:49 | Emergency Department Report ---
ED Shortness of Breath HPI - General Chief Complaint: Sickle Cell Crisis Stated Complaint: SICKLE CELL Time Seen by Provider: 10/14/20 12:40 Source: patient Mode of arrival: Ambulatory Limitations: No Limitations - History of Present Illness Initial Comments: Chief complaint: I thought it was my asthma. HPI: This is a 35-year-old female with history of sickle cell disease and asthma who presents with shortness of breath since last night. Nebulizer treatment at home did not provide any relief. She denies fever. She denies cough. She did have wheezing. She denies chest pain. She denies any sick contacts at home. Patient also has diffuse pain in her back and legs. Pain is 9 out of 10 in severity. MD Complaint: shortness of breath -: Gradual, days(s) (1) Severity: moderate Consistency: constant Improves With: nothing Worsens With: nothing Known History Of: asthma Associated Symptoms: other (Pain in the legs back) - Related Data Home Medications Medication Instructions Recorded Confirmed Last Taken Methadone [Dolophine] 20 mg PO BID 03/19/19 03/22/20 08/18/19 Percocet 5/325 mg 10 mg PO PRN 01/29/20 03/22/20 01/28/20 Previous Rx's Medication Instructions Recorded Last Taken Type Folic Acid [Folvite] 1 mg PO DAILY #30 tablet 08/23/19 01/29/20 Rx Hydroxyurea 500 mg PO DAILY #30 cap 08/23/19 Unknown Rx amLODIPine 10 mg PO QDAY #30 tablet 08/23/19 01/28/20 Rx cloNIDine [Catapres] 0.2 mg PO BID #60 08/23/19 01/28/20 Rx lisinopriL [Zestril TAB] 40 mg PO QDAY #30 tablet 08/23/19 01/28/20 Rx Albuterol Mdi (or & Nicu Only) 2 puff IH QID PRN #1 inhalation 01/13/20 01/29/20 11:27 Rx [ProAir HFA Inhaler] HYDROcodone/APAP 5-325 [[place] 1 - 2 each PO Q6HR PRN #10 tablet 04/05/20 Unknown Rx 5/325] HYDROcodone/APAP 5-325 [[place] 1 - 2 each PO Q6HR PRN #14 tablet 09/09/20 Unknown Rx 5/325] predniSONE [Deltasone] 3 tab PO QDAY 3 Days #9 tab 10/14/20 Unknown Rx Allergies Allergy/AdvReac Type Severity Reaction Status Date / Time morphine Allergy Shortness Verified 10/14/20 11:35 of Breath ED Review of Systems ROS: Stated complaint: SICKLE CELL Other details as noted in HPI Comment: All other systems reviewed and negative Constitutional: denies: fever, malaise Cardiovascular: denies: chest pain ED Past Medical Hx - Past Medical History Previous Medical History?: Yes Hx Hypertension: Yes Hx Sickle Cell Disease: Yes Hx Arthritis: Yes Hx Asthma: Yes Additional medical history: ANEMIA, multiple port infections - Surgical History Past Surgical History?: Yes Hx Cholecystectomy: Yes Additional Surgical History: , port removed June 2014. PICC line left upper arm (11/19/2014). . - Social History Smoking Status: Never Smoker Substance Use Type: None - Medications Home Medications: Home Medications Medication Instructions Recorded Confirmed Last Taken Type Methadone [Dolophine] 20 mg PO BID 03/19/19 03/22/20 08/18/19 History Folic Acid [Folvite] 1 mg PO DAILY #30 tablet 08/23/19 03/22/20 01/29/20 Rx Hydroxyurea 500 mg PO DAILY #30 cap 08/23/19 03/22/20 Unknown Rx amLODIPine 10 mg PO QDAY #30 tablet 08/23/19 03/22/20 01/28/20 Rx cloNIDine [Catapres] 0.2 mg PO BID #60 08/23/19 03/22/20 01/28/20 Rx lisinopriL [Zestril TAB] 40 mg PO QDAY #30 tablet 08/23/19 03/22/20 01/28/20 Rx Albuterol Mdi (or & Nicu Only) 2 puff IH QID PRN #1 inhalation 01/13/20 03/22/20 01/29/20 11:27 Rx [ProAir HFA Inhaler] Percocet 5/325 mg 10 mg PO PRN 01/29/20 03/22/20 01/28/20 History HYDROcodone/APAP 5-325 [[place] 1 - 2 each PO Q6HR PRN #10 tablet 04/05/20 Unknown Rx 5/325] HYDROcodone/APAP 5-325 [[place] 1 - 2 each PO Q6HR PRN #14 tablet 11/05/20 Unknown Rx 5/325] predniSONE [Deltasone] 3 tab PO QDAY 3 Days #9 tab 10/14/20 Unknown Rx ED Physical Exam - General Limitations: No Limitations General appearance: alert, in no apparent distress, other (Speaking full sentences mild work of breathing) - Head Head exam: Present: atraumatic, normocephalic - Eye Eye exam: Present: normal appearance - ENT ENT exam: Present: mucous membranes moist - Neck Neck exam: Present: normal inspection - Respiratory Respiratory exam: Present: respiratory distress, prolonged expiratory. Absent: wheezes, rales, rhonchi, stridor, chest wall tenderness - Cardiovascular Cardiovascular Exam: Present: regular rate, normal rhythm, normal heart sounds. Absent: systolic murmur, diastolic murmur, rubs, gallop - GI/Abdominal GI/Abdominal exam: Present: soft, normal bowel sounds. Absent: distended, tenderness, guarding, rebound - Extremities Exam Extremities exam: Present: normal inspection - Neurological Exam Neurological exam: Present: alert, oriented X3 - Psychiatric Psychiatric exam: Present: normal affect, normal mood - Skin Skin exam: Present: warm, dry, intact, normal color. Absent: rash ED Course Vital Signs 10/14/20 10/14/20 11:37 17:18 Temperature 98.2 F Pulse Rate 85 Pulse Rate [ 90 Anterior Bilateral Throughout] Respiratory 17 Rate Respiratory 18 Rate [Anterior Bilateral Throughout] Blood Pressure 182/92 O2 Sat by Pulse 92 Oximetry ED Medical Decision Making - Lab Data Result diagrams: 10/14/20 16:45 10/14/20 16:45 Laboratory Results - last 24 hr 10/14/20 10/14/20 10/14/20 16:45 16:45 16:45 WBC 18.6 H RBC 2.81 L Hgb 8.9 L Hct 25.5 L MCV 91 MCH 32 MCHC 35 H RDW 21.1 H Plt Count 452 H Lymph # (Auto) Student Career Development Specialist Add Manual Diff Complete Total Counted 100 Seg Neuts % (Manual) 82.0 H Band Neutrophils % 0 Lymphocytes % (Manual) 10.0 L Reactive Lymphs % (Man) 0 Monocytes % (Manual) 4.0 Eosinophils % (Manual) 4.0 Basophils % (Manual) 0 Metamyelocytes % 0 Myelocytes % 0 Promyelocytes % 0 Blast Cells % 0 Nucleated RBC % Not Reportable Seg Neutrophils # Man 15.3 H Band Neutrophils # 0.0 Lymphocytes # (Manual) 1.9 Abs React Lymphs (Man) 0.0 Monocytes # (Manual) 0.7 Eosinophils # (Manual) 0.7 H Basophils # (Manual) 0.0 Metamyelocytes # 0.0 Myelocytes # 0.0 Promyelocytes # 0.0 Blast Cells # 0.0 WBC Morphology Not Reportable Hypersegmented Neuts Not Reportable Hyposegmented Neuts Not Reportable Hypogranular Neuts Not Reportable Smudge Cells Not Reportable Toxic Granulation Not Reportable Toxic Vacuolation Not Reportable Dohle Bodies Not Reportable Pelger-Huet Anomaly Not Reportable Ariadne Rods Not Reportable Platelet Estimate Consistent w auto Clumped Platelets Not Reportable Plt Clumps, EDTA Not Reportable Large Platelets Few Giant Platelets Not Reportable Platelet Satelliting Not Reportable Plt Morphology Comment Not Reportable RBC Morphology Not Reportable Dimorphic RBCs Not Reportable Polychromasia Not Reportable Hypochromasia Not Reportable Poikilocytosis Not Reportable Anisocytosis 1+ Microcytosis Not Reportable Macrocytosis Not Reportable Spherocytes 1+ Pappenheimer Bodies Not Reportable Sickle Cells 2+ Target Cells 1+ Tear Drop Cells Not Reportable Ovalocytes Not Reportable Helmet Cells Not Reportable Walters-St. [place] Bodies Not Reportable [place] Rings Not Reportable Betsy Cells Not Reportable Bite Cells Not Reportable Crenated Cell Not Reportable Elliptocytes Not Reportable Acanthocytes (Spur) Not Reportable Rouleaux Not Reportable Hemoglobin C Crystals Not Reportable Schistocytes Not Reportable Malaria parasites Not Reportable Percent Retic 12.97 H Alexis Bodies Not Reportable Hem Pathologist Commnt No D-Dimer Sodium 140 Potassium 4.0 Chloride 104.7 Carbon Dioxide 28 Anion Gap 11 BUN 11 Creatinine 1.0 Estimated GFR > 60 BUN/Creatinine Ratio 11 Glucose 99 Calcium 9.3 Ferritin Total Bilirubin 1.80 H AST 30 ALT 37 Alkaline Phosphatase 188 H Lactate Dehydrogenase Troponin T < 0.010 C-Reactive Protein NT-Pro-B Natriuret Pep 421.4 Total Protein 7.3 Albumin 3.6 L Albumin/Globulin Ratio 1.0 10/14/20 10/14/20 10/14/20 16:45 16:45 16:45 WBC RBC Hgb Hct MCV MCH MCHC RDW Plt Count Lymph # (Auto) Add Manual Diff Total Counted Seg Neuts % (Manual) Band Neutrophils % Lymphocytes % (Manual) Reactive Lymphs % (Man) Monocytes % (Manual) Eosinophils % (Manual) Basophils % (Manual) Metamyelocytes % Myelocytes % Promyelocytes % Blast Cells % Nucleated RBC % Seg Neutrophils # Man Band Neutrophils # Lymphocytes # (Manual) Abs React Lymphs (Man) Monocytes # (Manual) Eosinophils # (Manual) Basophils # (Manual) Metamyelocytes # Myelocytes # Promyelocytes # Blast Cells # WBC Morphology Hypersegmented Neuts Hyposegmented Neuts Hypogranular Neuts Smudge Cells Toxic Granulation Toxic Vacuolation Dohle Bodies Pelger-Huet Anomaly Ariadne Rods Platelet Estimate Clumped Platelets Plt Clumps, EDTA Large Platelets Giant Platelets Platelet Satelliting Plt Morphology Comment RBC Morphology Dimorphic RBCs Polychromasia Hypochromasia Poikilocytosis Anisocytosis Microcytosis Macrocytosis Spherocytes Pappenheimer Bodies Sickle Cells Target Cells Tear Drop Cells Ovalocytes Helmet Cells Walters-St. [place] Bodies [place] Rings Betsy Cells Bite Cells Crenated Cell Elliptocytes Acanthocytes (Spur) Rouleaux Hemoglobin C Crystals Schistocytes Malaria parasites Percent Retic Alexis Bodies Hem Pathologist Commnt D-Dimer 553.75 H Sodium Potassium Chloride Carbon Dioxide Anion Gap BUN Creatinine Estimated GFR BUN/Creatinine Ratio Glucose 100 Calcium Ferritin > 2000.0 H Total Bilirubin AST ALT Alkaline Phosphatase Lactate Dehydrogenase 409 H Troponin T C-Reactive Protein 0.90 NT-Pro-B Natriuret Pep Total Protein Albumin Albumin/Globulin Ratio - Radiology Data Radiology results: report reviewed, image reviewed CHEST PA AND LATERAL VIEWS INDICATION: SOB. COMPARISON: 04/16/2020 FINDINGS: Support devices: Left-sided port is unchanged. Heart: Stable. Lungs/Pleura: Mild, somewhat reticular opacities have developed bilaterally, greater on the right. There is no significant pleural effusion. IMPRESSION: 1. Somewhat reticular opacities which are new since the prior appear to be peribronchial cuffing suggestive of lower airways disease. - Medical Decision Making Shortness of breath, hypoxia 92 to 94% at rest. I suspect that initially acute chest syndrome. However patient does not have fever cough. She denies chest pain. Also consider COVID-19 infection. Again patient does not have any concomitant symptoms to suggest viral infection. Asthma is a consideration. I do not suspect pulmonary embolism without significant tachycardia or chest pain. Patient improved with albuterol nebulizer therapy. She improved with steroids. She elected to be discharged home. Patient understands return precautions. She also received treatment for sickle cell disease pain crisis with IV hydration and IV analgesics. Critical care attestation.: If time is entered above; I have spent that time in minutes in the direct care of this critically ill patient, excluding procedure time. ED Disposition Clinical Impression: Anemia, sickle cell with crisis, Acute asthma exacerbation Disposition: TO HOME OR SELFCARE Is pt being admited?: No Does the pt Need Aspirin: No Condition: Stable Prescriptions: predniSONE [Deltasone] 3 tab PO QDAY 3 Days #9 tab Referrals: PRIMARY CARE, [Primary Care Provider] - 3-5 Days
[2020-10-14 20:26] VITALS: BP 160/76
== END 2020-10-14 20:23 | disposition home or self-care (01) ==
LOC: ED 11:07
DX: J45.901 Unspecified asthma with (acute) exacerbation (principal); D57.00 Hb-SS disease with crisis, unspecified; I10 Essential (primary) hypertension; M19.91 Primary osteoarthritis, unspecified site; Z90.49 Acquired absence of other specified parts of digestive tract; Z98.890 Other specified postprocedural states; Z79.899 Other long term (current) drug therapy; Z88.8 Allergy status to other drugs, medicaments and biological substances
CPT/HCPCS: 36415; 71046; 80053; 82728; 82947; 83615; 83880; 84145; 84484; 85007; 85025; 85045; 85379; 86140; 87040; 93005; 94640; 96365; 96368; 96375; 96376; 99284; J0456; J0696; J1170; J1200; J1642; J2405; J7050; J7512; 94644; 96361

== ENCOUNTER 2020-10-17 09:01 | Emergency (ER) | payer MEDICAID | END 2020-10-17 09:32 | disposition left against medical advice (07) | LOC: ED 09:01 | DX: D57.1 Sickle-cell disease without crisis (principal); Z53.21 Procedure and treatment not carried out due to patient leaving prior to being seen by health care provider ==

== ENCOUNTER 2020-10-20 10:21 | Emergency (ER) | payer MEDICAID ==
[2020-10-20 10:29] VITALS: BP 174/81
== END 2020-10-20 14:27 | disposition left against medical advice (07) ==
LOC: ED 10:21
DX: D57.1 Sickle-cell disease without crisis (principal); Z53.21 Procedure and treatment not carried out due to patient leaving prior to being seen by health care provider

== ENCOUNTER 2020-10-21 10:05 | Emergency (ER) | payer MEDICAID ==
--- NOTE | 2020-10-21 10:18 | Emergency Department Report ---
Blank Doc - Documentation Documentation: 35-year-old female that presents with sickle cell crisis. This initial assessment/diagnostic orders/clinical plan/treatment(s) is/are subject to change based on patient's health status, clinical progression and re- assessment by fellow clinical providers in the ED. Further treatment and workup at subsequent clinical providers discretion. Patient/guardians urged not to elope from the ED as their condition may be serious if not clinically assessed and managed. Initial orders include: 1- Patient sent to MAIN ED for further evaluation and treatment 2- labs 3- UA
[2020-10-21] MEDS ORDERED: SODIUM CHLORIDE 0.9% 1000 ML 1,000 ML IV ONE ×2 (13:00)
[2020-10-21] MEDS ORDERED: HYDROmorphone 1 MG/1 ML INJ IV ONE ×3 (13:00→16:19)
[2020-10-21] MEDS ORDERED: ONDANSETRON 4 MG/2 ML INJ IV ONE (13:11)
[2020-10-21] MEDS ORDERED: diphenhydrAMINE 50 MG/ML VIAL IV ONE ×2 (13:11→14:55)
[2020-10-21 13:24] LABS: Hematocrit 25.5 % (30.3-42.9); Hemoglobin 8.3 gm/dl (10.1-14.3); Mean Corpuscular HGB Conc 33 % (30-34); Mean Corpuscular Volume 95 fl (79-97); Platelet Count 388 K/mm3 (140-440); Red Blood Count 2.67 M/mm3 (3.65-5.03)
[2020-10-21 13:26] LABS: Alanine Aminotransferase 45 units/L (7-56); Albumin 3.4 g/dL (3.9-5); BUN/Creatinine Ratio 14; Blood Urea Nitrogen 14 mg/dL (7-17); Calcium 8.7 mg/dL (8.4-10.2); Hemolysis Index 7
[2020-10-21 13:29] LABS: Red Cell Distribution Width 23.2 % (13.2-15.2)
[2020-10-21 13:50] VITALS: BP 174/81
[2020-10-21 13:59] LABS: Anisocytosis 2+; Total Cells Counted 100
[2020-10-21 14:00] LABS: Giant Platelets Rare; Ovalocytes Few; Poikilocytosis 1+; Target Cells Few; Tear Drop Cells Rare
[2020-10-21 14:01] LABS: Large Platelets Few; Platelet Estimate Consistent w Auto
[2020-10-21] MEDS ORDERED: KETOROLAC 30 MG/1 ML INJ IV ONE (14:55)
[2020-10-21 15:21] LABS: HCG Qualitative,Urine Negative (Negative)
--- NOTE | 2020-10-21 16:29 | Emergency Department Report ---
ED General Adult HPI - General Chief complaint: Sickle Cell Crisis Stated complaint: SICKLE CELL Time Seen by Provider: 10/21/20 10:16 Source: patient Mode of arrival: Ambulatory Limitations: No Limitations - History of Present Illness Initial comments: Patient is a 35-year-old F [place] female who is well-known to our department who has a past medical history of sickle cell who is here for sickle cell crisis. Patient did admit she is no longer going to her sickle cell clinic. This is her seventh visit this month. Patient is complaining of pain in her lower back and legs. 10 out of 10. She was here 2 days ago and was actually offered admission but she declined. Patient has no cough cold congestion fevers chills nausea vomiting at this time. She has had several episodes of asthma exacerbation this month but is not currently having any shortness of breath and the albuterol inhaler at home is helping. She has had several doses of steroids this month and she has had some persistent leukocytosis secondary to steroid use. Severity scale (0 -10): 8 - Related Data Home Medications Medication Instructions Recorded Confirmed Last Taken Methadone [Dolophine] 20 mg PO BID 03/19/19 03/22/20 08/18/19 Percocet 5/325 mg 10 mg PO PRN 01/29/20 03/22/20 01/28/20 Previous Rx's Medication Instructions Recorded Last Taken Type Folic Acid [Folvite] 1 mg PO DAILY #30 tablet 08/23/19 01/29/20 Rx Hydroxyurea 500 mg PO DAILY #30 cap 08/23/19 Unknown Rx amLODIPine 10 mg PO QDAY #30 tablet 08/23/19 01/28/20 Rx cloNIDine [Catapres] 0.2 mg PO BID #60 08/23/19 01/28/20 Rx lisinopriL [Zestril TAB] 40 mg PO QDAY #30 tablet 08/23/19 01/28/20 Rx Albuterol Mdi (or & Nicu Only) 2 puff IH QID PRN #1 inhalation 01/13/20 01/29/20 11:27 Rx [ProAir HFA Inhaler] HYDROcodone/APAP 5-325 [[place] 1 - 2 each PO Q6HR PRN #10 tablet 04/05/20 Unknown Rx 5/325] HYDROcodone/APAP 5-325 [[place] 1 - 2 each PO Q6HR PRN #14 tablet 09/09/20 Unknown Rx 5/325] predniSONE [Deltasone] 3 tab PO QDAY 3 Days #9 tab 10/14/20 Unknown Rx Allergies Allergy/AdvReac Type Severity Reaction Status Date / Time morphine Allergy Shortness Verified 10/21/20 10:14 of Breath ED Review of Systems ROS: Stated complaint: SICKLE CELL Other details as noted in HPI Comment: All other systems reviewed and negative ED Past Medical Hx - Past Medical History Hx Hypertension: Yes Hx Sickle Cell Disease: Yes Hx Arthritis: Yes Hx Asthma: Yes Additional medical history: ANEMIA, multiple port infections - Surgical History Hx Cholecystectomy: Yes Additional Surgical History: , port removed June 2014. PICC line lef t upper arm (11/19/2014). . - Social History Smoking Status: Never Smoker - Medications Home Medications: Home Medications Medication Instructions Recorded Confirmed Last Taken Type Methadone [Dolophine] 20 mg PO BID 03/19/19 03/22/20 08/18/19 History Folic Acid [Folvite] 1 mg PO DAILY #30 tablet 08/23/19 03/22/20 01/29/20 Rx Hydroxyurea 500 mg PO DAILY #30 cap 08/23/19 03/22/20 Unknown Rx amLODIPine 10 mg PO QDAY #30 tablet 08/23/19 03/22/20 01/28/20 Rx cloNIDine [Catapres] 0.2 mg PO BID #60 08/23/19 03/22/20 01/28/20 Rx lisinopriL [Zestril TAB] 40 mg PO QDAY #30 tablet 08/23/19 03/22/20 01/28/20 Rx Albuterol Mdi (or & Nicu Only) 2 puff IH QID PRN #1 inhalation 01/13/20 03/22/20 01/29/20 11:27 Rx [ProAir HFA Inhaler] Percocet 5/325 mg 10 mg PO PRN 01/29/20 03/22/20 01/28/20 History HYDROcodone/APAP 5-325 [[place] 1 - 2 each PO Q6HR PRN #10 tablet 04/05/20 Unknown Rx 5/325] HYDROcodone/APAP 5-325 [[place] 1 - 2 each PO Q6HR PRN #14 tablet 09/09/20 Unknown Rx 5/325] predniSONE [Deltasone] 3 tab PO QDAY 3 Days #9 tab 10/14/20 Unknown Rx ED Physical Exam - General Limitations: No Limitations General appearance: alert, in no apparent distress - Head Head exam: Present: atraumatic, normocephalic - Eye Eye exam: Present: normal appearance, PERRL, EOMI - ENT ENT exam: Present: mucous membranes moist - Neck Neck exam: Present: normal inspection - Respiratory Respiratory exam: Present: normal lung sounds bilaterally. Absent: respiratory distress, wheezes, rales, rhonchi - Cardiovascular Cardiovascular Exam: Present: regular rate, normal rhythm. Absent: normal heart sounds, systolic murmur, diastolic murmur, rubs, gallop - GI/Abdominal GI/Abdominal exam: Present: soft, normal bowel sounds. Absent: distended, tenderness, guarding, rebound - Extremities Exam Extremities exam: Present: normal inspection - Back Exam Back exam: Present: normal inspection - Neurological Exam Neurological exam: Present: alert, oriented X3 - Psychiatric Psychiatric exam: Present: normal affect, normal mood - Skin Skin exam: Present: warm, dry, intact, normal color. Absent: rash ED Course Vital Signs 10/21/20 10/21/20 10/21/20 10:18 13:32 13:49 Temperature 98.6 F Pulse Rate 77 84 Respiratory 22 16 Rate Blood Pressure 203/97 174/81 [Right] O2 Sat by Pulse 93 94 Oximetry ED Medical Decision Making - Lab Data Result diagrams: 10/21/20 12:35 10/21/20 12:35 Lab Results 10/21/20 10/21/20 10/21/20 Range/Units 12:35 12:35 13:48 WBC 17.0 H (4.5-11.0) K/mm3 RBC 2.67 L (3.65-5.03) M/mm3 Hgb 8.3 L (10.1-14.3) gm/dl Hct 25.5 L (30.3-42.9) % MCV 95 (79-97) fl MCH 31 (28-32) pg MCHC 33 (30-34) % RDW 23.2 H (13.2-15.2) % Plt Count 388 (140-440) K/mm3 Lymph # (Auto) Style Advisor Add Manual Diff Complete Total Counted 100 Seg Neuts % (Manual) 58.0 (40.0-70.0) % Lymphocytes % (Manual) 38.0 H (13.4-35.0) % Monocytes % (Manual) 2.0 (0.0-7.3) % Eosinophils % (Manual) 1.0 (0.0-4.3) % Basophils % (Manual) 1.0 (0.0-1.8) % Nucleated RBC % 4.0 H (0.0-0.9) % Seg Neutrophils # Man 9.9 H (1.8-7.7) K/mm3 Band Neutrophils # 0.0 K/mm3 Lymphocytes # (Manual) 6.5 H (1.2-5.4) K/mm3 Abs React Lymphs (Man) 0.0 K/mm3 Monocytes # (Manual) 0.3 (0.0-0.8) K/mm3 Eosinophils # (Manual) 0.2 (0.0-0.4) K/mm3 Basophils # (Manual) 0.2 H (0.0-0.1) K/mm3 Metamyelocytes # 0.0 K/mm3 Myelocytes # 0.0 K/mm3 Promyelocytes # 0.0 K/mm3 Blast Cells # 0.0 K/mm3 WBC Morphology Not Reportable Hypersegmented Neuts Not Reportable Hyposegmented Neuts Not Reportable Hypogranular Neuts Not Reportable Smudge Cells Not Reportable Toxic Granulation Not Reportable Toxic Vacuolation Not Reportable Dohle Bodies Not Reportable Pelger-Huet Anomaly Not Reportable Ariadne Rods Not Reportable Platelet Estimate Consistent w auto Clumped Platelets Not Reportable Plt Clumps, EDTA Not Reportable Large Platelets Few Giant Platelets Rare Platelet Satelliting Not Reportable Plt Morphology Comment Not Reportable RBC Morphology Not Reportable Dimorphic RBCs Not Reportable Polychromasia Few Hypochromasia Not Reportable Poikilocytosis 1+ Anisocytosis 2+ Microcytosis Not Reportable Macrocytosis Not Reportable Spherocytes Not Reportable Pappenheimer Bodies Not Reportable Sickle Cells Not Reportable Target Cells Few Tear Drop Cells Rare Ovalocytes Few Helmet Cells Not Reportable [place] Bodies Not Reportable [place] Rings Not Reportable [place] Cells Not Reportable Bite Cells Not Reportable Crenated Cell Not Reportable Elliptocytes Few Acanthocytes (Spur) Not Reportable Rouleaux Not Reportable Hemoglobin C Crystals Not Reportable Schistocytes Not Reportable Malaria parasites Not Reportable Percent Retic 11.48 H (0.78-2.58) % Alexis Bodies Not Reportable Hem Pathologist Commnt No Sodium 135 L (137-145) mmol/L Potassium 4.3 (3.6-5.0) mmol/L Chloride 101.3 (98-107) mmol/L Carbon Dioxide 27 (22-30) mmol/L Anion Gap 11 mmol/L BUN 14 (7-17) mg/dL Creatinine 1.0 (0.6-1.2) mg/dL Estimated GFR > 60 ml/min BUN/Creatinine Ratio 14 % Glucose 130 H (65-100) mg/dL Calcium 8.7 (8.4-10.2) mg/dL Total Bilirubin 1.20 (0.1-1.2) mg/dL AST 52 H (5-40) units/L ALT 45 (7-56) units/L Alkaline Phosphatase 189 H (35-129) units/L Total Protein 6.8 (6.3-8.2) g/dL Albumin 3.4 L (3.9-5) g/dL Albumin/Globulin Ratio 1.0 % Urine HCG, Qual Negative (Negative) - Medical Decision Making Patient received 3 separate doses of Dilaudid totaling 5 mg. She received 2 L of normal saline as well as Toradol Benadryl and Zofran. Patient was observed resting comfortably in the room and is actually eating 2 meals during her visit. Patient still states she has some mild discomfort in her lower back which is a 7 out of 10 but states her leg pain is better. Patient looks stable for discharge. Critical care attestation.: If time is entered above; I have spent that time in minutes in the direct care of this critically ill patient, excluding procedure time. ED Disposition Clinical Impression: Anemia, sickle cell with crisis Disposition: DC-01 TO HOME OR SELFCARE Is pt being admited?: No Does the pt Need Aspirin: No Condition: Stable Referrals: PRIMARY CARE, [Primary Care Provider] - 3-5 Days Time of Disposition: 16:33
== END 2020-10-21 16:55 | disposition home or self-care (01) ==
LOC: ED 10:05
DX: D57.00 Hb-SS disease with crisis, unspecified (principal); I10 Essential (primary) hypertension; M19.91 Primary osteoarthritis, unspecified site; J45.909 Unspecified asthma, uncomplicated; Z98.890 Other specified postprocedural states; Z79.899 Other long term (current) drug therapy; Z88.8 Allergy status to other drugs, medicaments and biological substances
CPT/HCPCS: 36415; 80053; 81025; 85007; 85025; 85045; 96361; 96374; 96375; 96376; 99283; J1170; J1200; J1642; J1885; J2405; J7030

== ENCOUNTER 2020-10-25 11:14 | Emergency (ER) | payer MEDICAID | END 2020-10-25 11:39 | disposition left against medical advice (07) | LOC: ED 11:14 | DX: D57.00 Hb-SS disease with crisis, unspecified (principal); Z53.21 Procedure and treatment not carried out due to patient leaving prior to being seen by health care provider ==

== ENCOUNTER 2020-10-29 10:56 | Emergency (ER) | payer MEDICAID ==
[2020-10-29 11:18] VITALS: BP 200/99
--- NOTE | 2020-10-29 13:48 | Event Note ---
ED Screening Note Date of service: 10/29/20 Time: 13:47 ED Screening Note: Patient complains of generalized body aches due to sickle cell crisis today This initial assessment/diagnostic orders/clinical plan/treatment(s) is/are subject to change based on patients health status, clinical progression and re- assessment by fellow clinical providers in the ED. Further treatment and workup at subsequent clinical providers discretion. Patient/guardian urged not to elope from the ED as their condition may be serious if not clinically assessed and managed. Initial orders include: labs
== END 2020-10-29 14:00 | disposition left against medical advice (07) ==
LOC: ED 10:56
DX: D57.00 Hb-SS disease with crisis, unspecified (principal); Z53.21 Procedure and treatment not carried out due to patient leaving prior to being seen by health care provider

== ENCOUNTER 2020-11-12 08:53 | Emergency (ER) | payer MEDICAID ==
--- NOTE | 2020-11-12 09:01 | Event Note ---
ED Screening Note Date of service: 11/12/20 Time: 09:00 ED Screening Note: Complains of sickle cell crisis x2 days This initial assessment/diagnostic orders/clinical plan/treatment(s) is/are subject to change based on patients health status, clinical progression and re- assessment by fellow clinical providers in the ED. Further treatment and workup at subsequent clinical providers discretion. Patient/guardian urged not to elope from the ED as their condition may be serious if not clinically assessed and managed. Initial orders include: Labs
[2020-11-12] MEDS ORDERED: HYDROmorphone 1 MG/1 ML INJ IV ONE ×3 (09:36→12:02)
[2020-11-12] MEDS ORDERED: ONDANSETRON 4 MG/2 ML INJ IV ONE (09:36)
[2020-11-12] MEDS ORDERED: KETOROLAC 30 MG/1 ML INJ IV ONE (09:37)
[2020-11-12] MEDS ORDERED: diphenhydrAMINE 50 MG/ML VIAL IV ONE (09:37)
--- NOTE | 2020-11-12 09:43 | Emergency Department Report ---
HPI - General Chief Complaint: Sickle Cell Crisis Time Seen by Provider: 11/12/20 08:59 - HPI HPI: Room 37 The patient is a 35-year-old female present with a chief complaint of sickle cell pain crisis. Patient states for the past 2 days she has had pain in her back and both legs consistent with her previous sickle cell pain crises. Patient denies history of fever. Patient gives her pain a score of 10/10 ED Past Medical Hx - Past Medical History Previous Medical History?: Yes Hx Hypertension: Yes Hx Sickle Cell Disease: Yes Hx Arthritis: Yes Hx Asthma: Yes Additional medical history: ANEMIA, multiple port infections - Surgical History Past Surgical History?: Yes Hx Cholecystectomy: Yes Additional Surgical History: , port removed June 2014. PICC line left upper arm (11/19/2014). . - Family History Family history: no significant - Social History Smoking Status: Never Smoker Substance Use Type: None - Medications Home Medications: Home Medications Medication Instructions Recorded Confirmed Last Taken Type Methadone [Dolophine] 20 mg PO BID 03/19/19 03/22/20 08/18/19 History Folic Acid [Folvite] 1 mg PO DAILY #30 tablet 08/23/19 03/22/20 01/29/20 Rx Hydroxyurea 500 mg PO DAILY #30 cap 08/23/19 03/22/20 Unknown Rx amLODIPine 10 mg PO QDAY #30 tablet 08/23/19 03/22/20 01/28/20 Rx cloNIDine [Catapres] 0.2 mg PO BID #60 08/23/19 03/22/20 01/28/20 Rx lisinopriL [Zestril TAB] 40 mg PO QDAY #30 tablet 08/23/19 03/22/20 01/28/20 Rx Albuterol Mdi (or & Nicu Only) 2 puff IH QID PRN #1 inhalation 01/13/20 03/22/20 01/29/20 11:27 Rx [ProAir HFA Inhaler] Percocet 5/325 mg 10 mg PO PRN 01/29/20 03/22/20 01/28/20 History HYDROcodone/APAP 5-325 [[place] 1 - 2 each PO Q6HR PRN #10 tablet 04/05/20 Unknown Rx 5/325] HYDROcodone/APAP 5-325 [[place] 1 - 2 each PO Q6HR PRN #14 tablet 09/09/20 Unknown Rx 5/325] predniSONE [Deltasone] 3 tab PO QDAY 3 Days #9 tab 10/14/20 Unknown Rx HYDROcodone/APAP 5-325 [[place] 1 - 2 each PO Q6HR PRN #14 tablet 11/12/20 Unkn own Rx 5/325] Ibuprofen [Motrin 800 MG tab] 800 mg PO Q8HR PRN #20 tablet 11/12/20 Unknown Rx ED Review of Systems ROS: Stated complaint: SICKLE CELL CRISIS Other details as noted in HPI Constitutional: denies: fever Eyes: denies: eye pain ENT: denies: throat pain Respiratory: no symptoms reported Cardiovascular: denies: chest pain Endocrine: no symptoms reported Gastrointestinal: denies: abdominal pain Musculoskeletal: back pain, myalgia Neurological: denies: headache Hematological/Lymphatic: other (Sickle cell pain crisis) Physical Exam - Physical Exam Vital Signs: Vital Signs 11/12/20 08:55 Temperature 97.9 F Pulse Rate 90 Respiratory 18 Rate Blood Pressure 191/94 O2 Sat by Pulse 97 Oximetry Physical Exam: GENERAL: The patient is well-developed well-nourished female lying on stretcher not appearing to be in acute distress. [] HEENT: Normocephalic. Atraumatic. Extraocular motions are intact. Patient has moist mucous membranes. NECK: Supple. Trachea midline CHEST/LUNGS: Clear to auscultation. There is no respiratory distress noted. HEART/CARDIOVASCULAR: Regular. There is no tachycardia. There is no gallop rub or murmur. ABDOMEN: Abdomen is soft, nontender. Patient has normal bowel sounds. There is no abdominal distention. SKIN: There is no rash. There is no edema. There is no diaphoresis. NEURO: The patient is awake, alert, and oriented. The patient is cooperative. The patient has normal speech MUSCULOSKELETAL: There is no evidence of acute injury. ED Course Vital Signs 11/12/20 08:55 Temperature 97.9 F Pulse Rate 90 Respiratory 18 Rate Blood Pressure 191/94 O2 Sat by Pulse 97 Oximetry ED Medical Decision Making - Lab Data Result diagrams: 11/12/20 11:30 11/12/20 11:30 Laboratory Tests 11/12/20 11/12/20 11/12/20 11:30 11:30 11:30 WBC 15.4 H RBC 2.55 L Hgb 8.1 L Hct 24.5 L MCV 96 MCH 32 MCHC 33 RDW 23.5 H Plt Count 474 H Lymph # (Auto) Laboratory Inspector Percent Retic 13.63 H Sodium 135 L Potassium 3.8 Chloride 101.7 Carbon Dioxide 26 Anion Gap 11 BUN 16 Creatinine 0.9 Estimated GFR > 60 BUN/Creatinine Ratio 18 Glucose 133 H Calcium 9.1 Total Bilirubin 2.20 H AST 73 H ALT 45 Alkaline Phosphatase 201 H Total Protein 6.6 Albumin 3.6 L Albumin/Globulin Ratio 1.2 HCG, Qual Negative - Differential Diagnosis Sickle cell pain crisis Critical care attestation.: If time is entered above; I have spent that time in minutes in the direct care of this critically ill patient, excluding procedure time. ED Disposition Clinical Impression: Sickle cell pain crisis Disposition: TO HOME OR SELFCARE Is pt being admited?: No Does the pt Need Aspirin: No Condition: Stable Additional Instructions: Return to the emergency department should you develop worsening symptoms, inability to tolerate food or liquids, high fever or any other concerns Prescriptions: Ibuprofen [Motrin 800 MG tab] 800 mg PO Q8HR PRN #20 tablet PRN Reason: Pain, Moderate (4-6) HYDROcodone/APAP 5-325 [[place] 5/325] 1 - 2 each PO Q6HR PRN #14 tablet PRN Reason: Pain Referrals: PRIMARY CARE, [Referring] - 3-5 Days SEMAJ FLYNN DO [Staff Physician] - 3-5 Days Time of Disposition: 12:41
[2020-11-12] MEDS ORDERED: D5W/0.2% NACL 1,000 ML IV SCH (11:00)
[2020-11-12 11:59] LABS: Hematocrit 24.5 % (30.3-42.9); Hemoglobin 8.1 gm/dl (10.1-14.3); Mean Corpuscular HGB Conc 33 % (30-34); Mean Corpuscular Volume 96 fl (79-97); Platelet Count 474 K/mm3 (140-440); Red Blood Count 2.55 M/mm3 (3.65-5.03)
[2020-11-12 12:07] LABS: Red Cell Distribution Width 23.5 % (13.2-15.2)
[2020-11-12 12:21] LABS: Alanine Aminotransferase 45 units/L (7-56); Albumin 3.6 g/dL (3.9-5); BUN/Creatinine Ratio 18; Blood Urea Nitrogen 16 mg/dL (7-17); Calcium 9.1 mg/dL (8.4-10.2); Hemolysis Index 8
[2020-11-12 13:23] VITALS: BP 166/87
[2020-11-12 17:43] LABS: Band Neutrophils # (Manual) 0.2 K/mm3; Total Cells Counted 100
[2020-11-12 17:44] LABS: Anisocytosis 2+; Burr Cells 1+; Poikilocytosis 2+; Target Cells Few
[2020-11-12 17:45] LABS: Ovalocytes 1+
[2020-11-12 17:46] LABS: Large Platelets Few; Platelet Estimate Consistent w Auto; Sickle Cells Few
== END 2020-11-12 12:55 | disposition home or self-care (01) ==
LOC: ED 08:53
DX: D57.00 Hb-SS disease with crisis, unspecified (principal); I10 Essential (primary) hypertension; M19.91 Primary osteoarthritis, unspecified site; J45.909 Unspecified asthma, uncomplicated; Z90.49 Acquired absence of other specified parts of digestive tract; Z98.890 Other specified postprocedural states; Z79.1 Long term (current) use of non-steroidal anti-inflammatories (NSAID); Z79.899 Other long term (current) drug therapy; Z88.8 Allergy status to other drugs, medicaments and biological substances
CPT/HCPCS: 36415; 80053; 84703; 85007; 85025; 85045; 96361; 96374; 96375; 96376; 99283; J1170; J1200; J1642; J1885; J2405

== ENCOUNTER 2020-11-20 08:50 | Emergency (ER) | payer MEDICAID ==
--- NOTE | 2020-11-20 09:31 | Event Note ---
ED Screening Note Date of service: 11/20/20 Time: 09:29 ED Screening Note: This initial assessment/diagnostic orders/clinical plan/treatment(s) is/are subject to change based on patients health status, clinical progression and re- assessment by fellow clinical providers in the ED. Further treatment and workup at subsequent clinical providers discretion. Patient/guardian urged not to elope from the ED as their condition may be serious if not clinically assessed and managed. Initial orders include: 35-year-old female with a past medical history of sickle cell crisis she is complaining of pain all over her body started yesterday she describes this as having a crisis. She is taking Percocet at home with no relief she denies any other symptoms no nausea no vomiting no cough.
[2020-11-20] MEDS ORDERED: diphenhydrAMINE 50 MG/ML VIAL IV ONE ×2 (09:59→12:33)
[2020-11-20] MEDS ORDERED: HYDROmorphone 2 MG/1 ML INJ IV ONE ×3 (09:59→12:33)
--- NOTE | 2020-11-20 10:01 | Emergency Department Report ---
HPI - General Chief Complaint: Sickle Cell Crisis Time Seen by Provider: 11/20/20 09:52 - HPI HPI: This is a 35-year-old -[place] female, who is well-known to both myself and this emergency department, who presents to the emergency department with complaint of generalized body pain since last night that she says is consistent with a sickle cell pain crisis. Usually her pain crisis affects her back and her lower extremities, but the patient says that she is currently on her menstrual cycle and it is causing generalized pain as well as some pelvic cramping. She denies any fever, chest pain, shortness of breath, lower extremity swelling. She has a history of arthritis, asthma, hypertension, anemia, sickle cell anemia. She follows with Dr. Perea for hematology. She has been taking folic acid, hydroxyurea, and home narcotic pain medication, without relief. ED Past Medical Hx - Past Medical History Previous Medical History?: Yes Hx Hypertension: Yes Hx Sickle Cell Disease: Yes Hx Arthritis: Yes Hx Asthma: Yes Additional medical history: ANEMIA, multiple port infections - Surgical History Past Surgical History?: Yes Hx Cholecystectomy: Yes Additional Surgical History: , port removed June 2014. PICC line left upper arm (11/19/2014). . - Social History Smoking Status: Never Smoker Substance Use Type: Alcohol, Prescribed - Medications Home Medications: Home Medications Medication Instructions Recorded Confirmed Last Taken Type Methadone [Dolophine] 20 mg PO BID 03/19/19 03/22/20 08/18/19 History Folic Acid [Folvite] 1 mg PO DAILY #30 tablet 08/23/19 03/22/20 01/29/20 Rx Hydroxyurea 500 mg PO DAILY #30 cap 08/23/19 03/22/20 Unknown Rx amLODIPine 10 mg PO QDAY #30 tablet 08/23/19 03/22/20 01/28/20 Rx cloNIDine [Catapres] 0.2 mg PO BID #60 08/23/19 03/22/20 01/28/20 Rx lisinopriL [Zestril TAB] 40 mg PO QDAY #30 tablet 08/23/19 03/22/20 01/28/20 Rx Albuterol Mdi (or & Nicu Only) 2 puff IH QID PRN #1 inhalation 01/13/20 03/22/20 01/29/20 11:27 Rx [ProAir HFA Inhaler] Percocet 5/325 mg 10 mg PO PRN 01/29/20 03/22/20 01/28/20 History HYDROcodone/APAP 5-325 [[place] 1 - 2 each PO Q6HR PRN #10 tablet 04/05/20 Unknown Rx 5/325] HYDROcodone/APAP 5-325 [[place] 1 - 2 each PO Q6HR PRN #14 tablet 09/09/20 Unknown Rx 5/325] predniSONE [Deltasone] 3 tab PO QDAY 3 Days #9 tab 10/14/20 Unknown Rx HYDROcodone/APAP 5-325 [[place] 1 - 2 each PO Q6HR PRN #14 tablet 11/12/20 Unknown Rx 5/325] Ibuprofen [Motrin 800 MG tab] 800 mg PO Q8HR PRN #20 tablet 11/12/20 Unknown Rx ED Review of Systems ROS: Stated complaint: SICKLE CELL PAIN Other details as noted in HPI Comment: All other systems reviewed and negative Constitutional: denies: chills, fever Eyes: denies: eye pain, vision change ENT: denies: ear pain, throat pain Respiratory: denies: cough, shortness of breath Cardiovascular: denies: chest pain, palpitations, edema Gastrointestinal: nausea. denies: vomiting Genitourinary: denies: dysuria, discharge Musculoskeletal: back pain, arthralgia, myalgia. denies: joint swelling Skin: denies: rash, lesions Neurological: denies: numbness, paresthesias Physical Exam - Physical Exam Vital Signs: Vital Signs 11/20/20 08:58 Temperature 99.0 F Pulse Rate 88 Respiratory 22 Rate Blood Pressure 212/124 O2 Sat by Pulse 75 L Oximetry Physical Exam: GENERAL: The patient is well-developed well-nourished. HENT: Normocephalic. Atraumatic. Patient has moist mucous membranes. EYES: Extraocular motions are intact. NECK: Supple. Trachea is midline. CHEST/LUNGS: Clear to auscultation. There is no respiratory distress noted. HEART/CARDIOVASCULAR: Regular. There is no tachycardia. There is no murmur. ABDOMEN: Abdomen is soft, nontender. Patient has normal bowel sounds. SKIN: Skin is warm and dry. NEURO: The patient is awake, alert, and oriented. The patient is cooperative. Normal speech. MUSCULOSKELETAL: There is no tenderness or deformity. There is no limitation range of motion. ED Course Vital Signs 11/20/20 08:58 Temperature 99.0 F Pulse Rate 88 Respiratory 22 Rate Blood Pressure 212/124 O2 Sat by Pulse 75 L Oximetry ED Medical Decision Making - Lab Data Result diagrams: 11/20/20 09:11 11/20/20 09:11 Lab Results 11/20/20 11/20/20 11/20/20 Range/Units 09:11 09:11 09:11 WBC 15.5 H (4.5-11.0) K/mm3 RBC 2.61 L (3.65-5.03) M/mm3 Hgb 8.4 L (10.1-14.3) gm/dl Hct 25.2 L (30.3-42.9) % MCV 97 (79-97) fl MCH 32 (28-32) pg MCHC 33 (30-34) % RDW 23.6 H (13.2-15.2) % Plt Count 409 (140-440) K/mm3 Add Manual Diff Complete Total Counted 100 Seg Neuts % (Manual) 74.0 H (40.0-70.0) % Lymphocytes % (Manual) 16.0 (13.4-35.0) % Reactive Lymphs % (Man) 6.0 % Monocytes % (Manual) 2.0 (0.0-7.3) % Eosinophils % (Manual) 1.0 (0.0-4.3) % Metamyelocytes % 1.0 % Nucleated RBC % 17.0 H (0.0-0.9) % Seg Neutrophils # Man 11.5 H (1.8-7.7) K/mm3 Band Neutrophils # 0.0 K/mm3 Lymphocytes # (Manual) 2.5 (1.2-5.4) K/mm3 Abs React Lymphs (Man) 0.9 K/mm3 Monocytes # (Manual) 0.3 (0.0-0.8) K/mm3 Eosinophils # (Manual) 0.2 (0.0-0.4) K/mm3 Basophils # (Manual) 0.0 (0.0-0.1) K/mm3 Metamyelocytes # 0.2 K/mm3 Myelocytes # 0.0 K/mm3 Promyelocytes # 0.0 K/mm3 Blast Cells # 0.0 K/mm3 WBC Morphology Not Reportable TNR Hypersegmented Neuts Not Reportable Hyposegmented Neuts Not Reportable Hypogranular Neuts Not Reportable Smudge Cells Not Reportable Toxic Granulation Not Reportable Toxic Vacuolation Not Reportable Dohle Bodies Not Reportable Pelger-Huet Anomaly Not Reportable Ariadne Rods Not Reportable Platelet Estimate Consistent w auto Clumped Platelets Not Reportable Plt Clumps, EDTA Not Reportable Large Platelets Not Reportable Giant Platelets Few Platelet Satelliting Not Reportable Plt Morphology Comment Not Reportable RBC Morphology Not Reportable Dimorphic RBCs Not Reportable Polychromasia Few Hypochromasia Not Reportable Poikilocytosis Not Reportable Anisocytosis Not Reportable Microcytosis Not Reportable Macrocytosis Not Reportable Spherocytes Not Reportable Pappenheimer Bodies Not Reportable Sickle Cells 3+ Target Cells 3+ Tear Drop Cells Not Reportable Ovalocytes Not Reportable Helmet Cells Not Reportable Walters-[place] Bodies Not Reportable [place] Rings Not Reportable Betsy Cells Not Reportable Bite Cells Not Reportable Crenated Cell Not Reportable Elliptocytes Not Reportable Acanthocytes (Spur) Not Reportable Rouleaux Not Reportable Hemoglobin C Crystals Not Reportable Schistocytes Not Reportable Malaria parasites Not Reportable Percent Retic 15.70 H (0.78-2.58) % Alexis Bodies Not Reportable Hem Pathologist Commnt No Sodium 139 (137-145) mmol/L Potassium 4.1 (3.6-5.0) mmol/L Chloride 103.7 (98-107) mmol/L Carbon Dioxide 27 (22-30) mmol/L Anion Gap 12 mmol/L BUN 14 (7-17) mg/dL Creatinine 0.9 (0.6-1.2) mg/dL Estimated GFR > 60 ml/min BUN/Creatinine Ratio 16 % Glucose 104 H (65-100) mg/dL Calcium 9.0 (8.4-10.2) mg/dL - Medical Decision Making This patient presents to the emergency department with complaint of generalized pain secondary to a sickle cell pain crisis. Labs show a leukocytosis of 15,000, which is lower than usual. She has a reticulocyte count of about 15 which is consistent with previous visits. Hemoglobin is around 8.5 which is also consistent with previous visits. She was given a few doses of IV analgesia and 1 dose of antihypertensive medication with great improvement of both her discomfort and her hypertension. She has no complaints of any chest pain or shortness of breath and is afebrile. This is not appear consistent with a chest crisis. Patient was seen ambulatory in the emergency department and both appears and feels stable. The patient says that she is feeling improved and asking for discharge home. She has good outpatient follow-up with a mate chief and says that she has an appointment in the next 3 to 4 days. She will return to the emergency department with any worsening of her symptoms or with any acute distress. Critical Care Time: No Critical care attestation.: If time is entered above; I have spent that time in minutes in the direct care of this critically ill patient, excluding procedure time. ED Disposition Clinical Impression: Sickle cell pain crisis Hypertension Qualifiers: Hypertension type: essential hypertension Qualified Code(s): I10 - Essential (primary) hypertension Disposition: DC-01 TO HOME OR SELFCARE Is pt being admited?: No Condition: Stable Instructions: Hypertension, Adult, Hypertension (ED) Additional Instructions: Please follow-up with your primary care physician/mate chief in the next few days. Take your medications as prescribed. Return to the emergency department with any worsening of your symptoms, new or concerning symptoms not addressed during this current emergency department visit, or with any acute distress. Referrals: PATTIE KEANE MD [Primary Care Provider] - 2-3 Days Time of Disposition: 12:41
[2020-11-20 11:11] LABS: Hematocrit 25.2 % (30.3-42.9); Hemoglobin 8.4 gm/dl (10.1-14.3); Mean Corpuscular HGB Conc 33 % (30-34); Mean Corpuscular Volume 97 fl (79-97); Platelet Count 409 K/mm3 (140-440); Red Blood Count 2.61 M/mm3 (3.65-5.03); Red Cell Distribution Width 23.6 % (13.2-15.2)
[2020-11-20 11:23] LABS: BUN/Creatinine Ratio 16; Blood Urea Nitrogen 14 mg/dL (7-17); Hemolysis Index 11
[2020-11-20] MEDS ORDERED: hydrALAZINE 20 MG/1 ML INJ IV ONE (11:31)
[2020-11-20 12:06] LABS: Total Cells Counted 100
[2020-11-20 12:07] VITALS: BP 160/88
[2020-11-20 12:07] LABS: Sickle Cells 3+; Target Cells 3+
[2020-11-20 12:08] LABS: Giant Platelets Few; Platelet Estimate Consistent w Auto
== END 2020-11-20 13:01 | disposition home or self-care (01) ==
LOC: ED 08:50
DX: D57.00 Hb-SS disease with crisis, unspecified (principal); I10 Essential (primary) hypertension; M19.91 Primary osteoarthritis, unspecified site; J45.909 Unspecified asthma, uncomplicated; Z90.49 Acquired absence of other specified parts of digestive tract; Z98.890 Other specified postprocedural states; Z79.1 Long term (current) use of non-steroidal anti-inflammatories (NSAID); Z79.899 Other long term (current) drug therapy; Z88.8 Allergy status to other drugs, medicaments and biological substances
CPT/HCPCS: 36415; 80048; 85007; 85025; 85045; 96374; 96375; 96376; 99283; J1170; J1200; J1642

== ENCOUNTER 2020-11-22 13:54 | Emergency (ER) | payer MEDICAID ==
--- NOTE | 2020-11-22 14:35 | Event Note ---
ED Screening Note ED Screening Note: presents for sickle cell pain states chronic pain where she typically has pain This initial assessment/diagnostic orders/clinical plan/treatment(s) is/are subject to change based on patients health status, clinical progression and re- assessment by fellow clinical providers in the ED. Further treatment and workup at subsequent clinical providers discretion. Patient/guardian urged not to elope from the ED as their condition may be serious if not clinically assessed and managed. Initial orders include: labs
[2020-11-22] MEDS ORDERED: ONDANSETRON 4 MG/2 ML INJ IV ONE (16:46)
[2020-11-22] MEDS ORDERED: HYDROmorphone 1 MG/1 ML INJ IV ONE ×3 (16:46→19:24)
[2020-11-22] MEDS ORDERED: diphenhydrAMINE 50 MG/ML VIAL IV ONE (16:46)
[2020-11-22] MEDS ORDERED: KETOROLAC 30 MG/1 ML INJ IV ONE (16:46)
--- NOTE | 2020-11-22 16:53 | Emergency Department Report ---
HPI - General Chief Complaint: Sickle Cell Crisis Time Seen by Provider: 11/22/20 14:34 - HPI HPI: Room 35 The patient is a 35-year-old female present with a chief complaint of sickle cell pain crisis. Patient states her symptoms began yesterday with pain in the arms legs and back. Patient states it is consistent with her previous sickle cell pain crises. Patient gives her pain a score of 10/10. ED Past Medical Hx - Past Medical History Hx Hypertension: Yes Hx Sickle Cell Disease: Yes Hx Arthritis: Yes Hx Asthma: Yes Additional medical history: ANEMIA, multiple port infections - Surgical History Hx Cholecystectomy: Yes Additional Surgical History: , port removed June 2014. PICC line left upper arm (11/19/2014). . - Family History Family history: no significant - Social History Smoking Status: Never Smoker Substance Use Type: Alcohol, Prescribed - Medications Home Medications: Home Medications Medication Instructions Recorded Confirmed Last Taken Type Methadone [Dolophine] 20 mg PO BID 03/19/19 03/22/20 08/18/19 History Folic Acid [Folvite] 1 mg PO DAILY #30 tablet 08/23/19 03/22/20 01/29/20 Rx Hydroxyurea 500 mg PO DAILY #30 cap 08/23/19 03/22/20 Unknown Rx amLODIPine 10 mg PO QDAY #30 tablet 08/23/19 03/22/20 01/28/20 Rx cloNIDine [Catapres] 0.2 mg PO BID #60 08/23/19 03/22/20 01/28/20 Rx lisinopriL [Zestril TAB] 40 mg PO QDAY #30 tablet 08/23/19 03/22/20 01/28/20 Rx Albuterol Mdi (or & Nicu Only) 2 puff IH QID PRN #1 inhalation 01/13/20 03/22/20 01/29/20 11:27 Rx [ProAir HFA Inhaler] Percocet 5/325 mg 10 mg PO PRN 01/29/20 03/22/20 01/28/20 History HYDROcodone/APAP 5-325 [[place] 1 - 2 each PO Q6HR PRN #10 tablet 04/05/20 Unknown Rx 5/325] HYDROcodone/APAP 5-325 [[place] 1 - 2 each PO Q6HR PRN #14 tablet 09/09/20 Unknown Rx 5/325] predniSONE [Deltasone] 3 tab PO QDAY 3 Days #9 tab 10/14/20 Unknown Rx HYDROcodone/APAP 5-325 [[place] 1 - 2 each PO Q6HR PRN #14 tablet 11/12/20 Unknown Rx 5/325] Ibuprofen [Motrin 800 MG tab] 800 mg PO Q8HR PRN #20 tablet 11/12/20 Unknown Rx HYDROcodone/APAP 5-325 [[place] 1 - 2 each PO Q6HR PRN #14 tablet 11/22/20 Unknown Rx 5/325] ED Review of Systems ROS: Stated complaint: SICKLE CELL CRISIS Other details as noted in HPI Constitutional: no symptoms reported Eyes: denies: eye pain ENT: denies: throat pain Respiratory: no symptoms reported Cardiovascular: denies: chest pain Endocrine: no symptoms reported Gastrointestinal: denies: abdominal pain Musculoskeletal: back pain, arthralgia, myalgia Neurological: denies: headache Hematological/Lymphatic: other (Sickle cell pain crisis) Physical Exam - Physical Exam Vital Signs: Vital Signs 11/22/20 14:34 Temperature 98.7 F Pulse Rate 86 Respiratory 18 Rate Blood Pressure 187/96 [Right] O2 Sat by Pulse 100 Oximetry Physical Exam: GENERAL: The patient is well-developed well-nourished female lying on stretcher appearing to be in mild discomfort. [] HEENT: Normocephalic. Atraumatic. Extraocular motions are intact. Patient has moist mucous membranes. NECK: Supple. Trachea midline CHEST/LUNGS: Clear to auscultation. There is no respiratory distress noted. HEART/CARDIOVASCULAR: Regular. There is no tachycardia. There is no gallop rub or murmur. ABDOMEN: Abdomen is soft, nontender. Patient has normal bowel sounds. There is no abdominal distention. SKIN: There is no rash. There is no edema. There is no diaphoresis. NEURO: The patient is awake, alert, and oriented. The patient is cooperative. The patient has normal speech MUSCULOSKELETAL: There is no evidence of acute injury. ED Course Vital Signs 11/22/20 14:34 Temperature 98.7 F Pulse Rate 86 Respiratory 18 Rate Blood Pressure 187/96 [Right] O2 Sat by Pulse 100 Oximetry ED Medical Decision Making - Differential Diagnosis Sickle cell pain crisis Critical care attestation.: If time is entered above; I have spent that time in minutes in the direct care of this critically ill patient, excluding procedure time. ED Disposition Clinical Impression: Sickle cell pain crisis Disposition: DC-01 TO HOME OR SELFCARE Is pt being admited?: No Does the pt Need Aspirin: No Condition: Stable Additional Instructions: Return to the emergency department should you develop worsening symptoms, inability to tolerate food or liquids, high fever or any other concerns Prescriptions: HYDROcodone/APAP 5-325 [[place] 5/325] 1 - 2 each PO Q6HR PRN #14 tablet PRN Reason: Pain Referrals: PRIMARY CARE, [Primary Care Provider] - 3-5 Days
[2020-11-22] MEDS ORDERED: D5W/0.2% NACL 1,000 ML IV SCH (17:00)
[2020-11-22 20:02] LABS: Hematocrit 24.4 % (30.3-42.9); Mean Corpuscular HGB Conc 33 % (30-34); Mean Corpuscular Volume 99 fl (79-97); Platelet Count 332 K/mm3 (140-440); Red Blood Count 2.47 M/mm3 (3.65-5.03)
[2020-11-22 20:18] LABS: Red Cell Distribution Width 25.3 % (13.2-15.2)
[2020-11-22 20:52] LABS: Alanine Aminotransferase 30 units/L (7-56); Albumin 3.5 g/dL (3.9-5); BUN/Creatinine Ratio 10; Blood Urea Nitrogen 12 mg/dL (7-17); Calcium 8.6 mg/dL (8.4-10.2); Hemolysis Index 17
[2020-11-22 21:04] LABS: Total Cells Counted 100
[2020-11-22 21:06] LABS: Anisocytosis Few; Giant Platelets Few; Sickle Cells 2+; Target Cells 2+
[2020-11-22 21:34] VITALS: BP 204/109
== END 2020-11-22 21:00 | disposition home or self-care (01) ==
LOC: ED 13:54
DX: D57.00 Hb-SS disease with crisis, unspecified (principal); I10 Essential (primary) hypertension; M19.91 Primary osteoarthritis, unspecified site; J45.909 Unspecified asthma, uncomplicated; Z90.49 Acquired absence of other specified parts of digestive tract; Z98.890 Other specified postprocedural states; Z79.1 Long term (current) use of non-steroidal anti-inflammatories (NSAID); Z79.899 Other long term (current) drug therapy; Z88.8 Allergy status to other drugs, medicaments and biological substances
CPT/HCPCS: 36415; 80053; 85007; 85025; 85045; 93005; 96361; 96374; 96375; 96376; 99283; J1170; J1200; J1642; J1885; J2405

== ENCOUNTER 2020-11-27 10:05 | Emergency (ER) | payer MEDICAID ==
--- NOTE | 2020-11-27 10:22 | Event Note ---
ED Screening Note Date of service: 11/27/20 Time: 10:21 ED Screening Note: 35-year-old sickle cell female that is well-known here to the emergency room. She presents to the ER reporting that she is been having pain all over for the last 3 days and states that her home meds are not helping. This initial assessment/diagnostic orders/clinical plan/treatment(s) is/are subject to change based on patients health status, clinical progression and re- assessment by fellow clinical providers in the ED. Further treatment and workup at subsequent clinical providers discretion. Patient/guardian urged not to elope from the ED as their condition may be serious if not clinically assessed and managed. Initial orders include:
[2020-11-27] MEDS ORDERED: HYDROmorphone 1 MG/1 ML INJ IV ONE (12:05)
[2020-11-27] MEDS ORDERED: diphenhydrAMINE 50 MG/ML VIAL IV ONE ×2 (12:05→13:51)
[2020-11-27] MEDS ORDERED: ONDANSETRON 4 MG/2 ML INJ IV ONE (12:05)
[2020-11-27] MEDS ORDERED: KETOROLAC 30 MG/1 ML INJ IV ONE (12:05)
[2020-11-27] MEDS ORDERED: HYDROmorphone 2 MG/1 ML INJ IV ONE ×3 (12:11→15:07)
[2020-11-27] MEDS ORDERED: D5W/0.2% NACL 1,000 ML IV SCH (13:00)
--- NOTE | 2020-11-27 13:36 | Emergency Department Report ---
ED General Adult HPI - General Chief complaint: Sickle Cell Crisis Stated complaint: SICKLE CELL CRISIS Time Seen by Provider: 11/27/20 12:03 Source: patient Mode of arrival: Ambulatory Limitations: No Limitations - History of Present Illness Initial comments: 35-year female with a past medical history of sickle cell disease, hypertension, and asthma presents to the hospital complaining of generalized musculoskeletal pain rated 10/10 in intensity since yesterday secondary to sickle cell crisis. Patient taken Percocet 10 mg at home without improvement. No specific alleviating factors reported she denies fever, cough, respiratory symptoms, nausea, vomiting, chest pain, abdominal pain, or generalized weakness. - Related Data Home Medications Medication Instructions Recorded Confirmed Last Taken Methadone [Dolophine] 20 mg PO BID 03/19/19 03/22/20 08/18/19 Percocet 5/325 mg 10 mg PO PRN 01/29/20 03/22/20 01/28/20 Previous Rx's Medication Instructions Recorded Last Taken Type Folic Acid [Folvite] 1 mg PO DAILY #30 tablet 08/23/19 01/29/20 Rx Hydroxyurea 500 mg PO DAILY #30 cap 08/23/19 Unknown Rx amLODIPine 10 mg PO QDAY #30 tablet 08/23/19 01/28/20 Rx cloNIDine [Catapres] 0.2 mg PO BID #60 08/23/19 01/28/20 Rx lisinopriL [Zestril TAB] 40 mg PO QDAY #30 tablet 08/23/19 01/28/20 Rx Albuterol Mdi (or & Nicu Only) 2 puff IH QID PRN #1 inhalation 01/13/20 01/29/20 11:27 Rx [ProAir HFA Inhaler] HYDROcodone/APAP 5-325 [[place] 1 - 2 each PO Q6HR PRN #10 tablet 04/05/20 Unknown Rx 5/325] HYDROcodone/APAP 5-325 [[place] 1 - 2 each PO Q6HR PRN #14 tablet 09/09/20 Unknown Rx 5/325] predniSONE [Deltasone] 3 tab PO QDAY 3 Days #9 tab 10/14/20 Unknown Rx HYDROcodone/APAP 5-325 [[place] 1 - 2 each PO Q6HR PRN #14 tablet 11/12/20 Unknown Rx 5/325] Ibuprofen [Motrin 800 MG tab] 800 mg PO Q8HR PRN #20 tablet 11/12/20 Unknown Rx HYDROcodone/APAP 5-325 [[place] 1 - 2 each PO Q6HR PRN #14 tablet 11/22/20 Unknown Rx 5/325] Allergies Allergy/AdvReac Type Severity Reaction Status Date / Time morphine Allergy Shortness Verified 10/21/20 10:14 of Breath vancomycin Allergy Unknown Verified 11/22/20 14:38 ED Review of Systems ROS: Stated complaint: SICKLE CELL CRISIS Other details as noted in HPI Comment: All other systems reviewed and negative ED Past Medical Hx - Past Medical History Previous Medical History?: Yes Hx Hypertension: Yes Hx Sickle Cell Disease: Yes Hx Arthritis: Yes Hx Asthma: Yes Additional medical history: ANEMIA, multiple port infections - Surgical History Past Surgical History?: Yes Hx Cholecystectomy: Yes Additional Surgical History: , port removed June 2014. PICC line left upper arm (11/19/2014). . - Social History Smoking Status: Never Smoker Substance Use Type: None - Medications Home Medications: Home Medications Medication Instructions Recorded Confirmed Last Taken Type Methadone [Dolophine] 20 mg PO BID 03/19/19 03/22/20 08/18/19 History Folic Acid [Folvite] 1 mg PO DAILY #30 tablet 08/23/19 03/22/20 01/29/20 Rx Hydroxyurea 500 mg PO DAILY #30 cap 08/23/19 03/22/20 Unknown Rx amLODIPine 10 mg PO QDAY #30 tablet 08/23/19 03/22/20 01/28/20 Rx cloNIDine [Catapres] 0.2 mg PO BID #60 08/23/19 03/22/20 01/28/20 Rx lisinopriL [Zestril TAB] 40 mg PO QDAY #30 tablet 08/23/19 03/22/20 01/28/20 Rx Albuterol Mdi (or & Nicu Only) 2 puff IH QID PRN #1 inhalation 01/13/20 03/22/20 01/29/20 11:27 Rx [ProAir HFA Inhaler] Percocet 5/325 mg 10 mg PO PRN 01/29/20 03/22/20 01/28/20 History HYDROcodone/APAP 5-325 [[place] 1 - 2 each PO Q6HR PRN #10 tablet 04/05/20 Unknown Rx 5/325] HYDROcodone/APAP 5-325 [[place] 1 - 2 each PO Q6HR PRN #14 tablet 09/09/20 Unknown Rx 5/325] predniSONE [Deltasone] 3 tab PO QDAY 3 Days #9 tab 10/14/20 Unknown Rx HYDROcodone/APAP 5-325 [[place] 1 - 2 each PO Q6HR PRN #14 tablet 11/12/20 Unknown Rx 5/325] Ibuprofen [Motrin 800 MG tab] 800 mg PO Q8HR PRN #20 tablet 11/12/20 Unknown Rx HYDROcodone/APAP 5-325 [[place] 1 - 2 each PO Q6HR PRN #14 tablet 11/22/20 Unknown Rx 5/325] ED Physical Exam - General Limitations: No Limitations - Other Other exam information: General: No acute distress Head: Atraumatic Eyes: normal appearance ENT: Moist mucous membranes Neck: Normal appearance, no midline tenderness Chest: Clear to auscultation bilaterally CV: Regular rate and rhythm Abdomen: Soft, normal bowel sounds, nontender, nondistended, no rebound or guarding Back: Normal inspection Extremity: Normal inspection, full range of motion Neuro: Alert O x 3, no facial asymmetry, speech clear, no gross motor sensory deficit Psych: Appropriate behavior Skin: No rash ED Course Vital Signs 11/27/20 10:18 Temperature 98.1 F Pulse Rate 79 Respiratory 18 Rate Blood Pressure 199/84 O2 Sat by Pulse 98 Oximetry ED Medical Decision Making - Lab Data Result diagrams: 11/27/20 13:26 11/27/20 13:26 Lab Results 11/27/20 11/27/20 11/27/20 Range/Units 13:26 13:26 13:26 WBC 16.1 H (4.5-11.0) K/mm3 RBC 2.42 L (3.65-5.03) M/mm3 Hgb 8.2 L (10.1-14.3) gm/dl Hct 24.4 L (30.3-42.9) % MCV 101 H (79-97) fl MCH 34 H (28-32) pg MCHC 34 (30-34) % RDW 26.9 H (13.2-15.2) % Plt Count 368 (140-440) K/mm3 Add Manual Diff Complete Total Counted 100 Seg Neuts % (Manual) 65.0 (40.0-70.0) % Lymphocytes % (Manual) 20.0 (13.4-35.0) % Monocytes % (Manual) 11.0 H (0.0-7.3) % Eosinophils % (Manual) 2.0 (0.0-4.3) % Basophils % (Manual) 1.0 (0.0-1.8) % Metamyelocytes % 1.0 % Nucleated RBC % 26.0 H (0.0-0.9) % Seg Neutrophils # Man 0.0 L (1.8-7.7) K/mm3 Band Neutrophils # 0.0 K/mm3 Lymphocytes # (Manual) 0.0 L (1.2-5.4) K/mm3 Abs React Lymphs (Man) 0.0 K/mm3 Monocytes # (Manual) 0.0 (0.0-0.8) K/mm3 Eosinophils # (Manual) 0.0 (0.0-0.4) K/mm3 Basophils # (Manual) 0.0 (0.0-0.1) K/mm3 Metamyelocytes # 0.0 K/mm3 Myelocytes # 0.0 K/mm3 Promyelocytes # 0.0 K/mm3 Blast Cells # 0.0 K/mm3 WBC Morphology Not Reportable Hypersegmented Neuts Not Reportable Hyposegmented Neuts Not Reportable Hypogranular Neuts Not Reportable Smudge Cells Not Reportable Toxic Granulation Not Reportable Toxic Vacuolation Not Reportable Dohle Bodies Not Reportable Pelger-Huet Anomaly Not Reportable Ariadne Rods Not Reportable Platelet Estimate Consistent w auto Clumped Platelets Not Reportable Plt Clumps, EDTA Not Reportable Large Platelets Few Giant Platelets Not Reportable Platelet Satelliting Not Reportable Plt Morphology Comment Not Reportable RBC Morphology Not Reportable Dimorphic RBCs Not Reportable Polychromasia Few Hypochromasia Not Reportable Poikilocytosis 3+ Anisocytosis 3+ Microcytosis Not Reportable Macrocytosis Not Reportable Spherocytes Not Reportable Pappenheimer Bodies Not Reportable Sickle Cells 1+ Target Cells 1+ Tear Drop Cells Not Reportable Ovalocytes 1+ Helmet Cells Not Reportable Walters-[place] Bodies Not Reportable [place] Rings Not Reportable [place] Cells Not Reportable Bite Cells Not Reportable Crenated Cell Not Reportable Elliptocytes Few Acanthocytes (Spur) Not Reportable Rouleaux Not Reportable Hemoglobin C Crystals Not Reportable Schistocytes Rare Malaria parasites Not Reportable Percent Retic 18.0 H (0.78-2.58) % Alexis Bodies Not Reportable Hem Pathologist Commnt No Sodium 138 (137-145) mmol/L Potassium 4.8 D (3.6-5.0) mmol/L Chloride 102.9 (98-107) mmol/L Carbon Dioxide 26 (22-30) mmol/L Anion Gap 14 mmol/L BUN 16 (7-17) mg/dL Creatinine 1.1 (0.6-1.2) mg/dL Estimated GFR > 60 ml/min BUN/Creatinine Ratio 15 % Glucose 93 (65-100) mg/dL Calcium 9.0 (8.4-10.2) mg/dL Total Bilirubin 2.40 H (0.1-1.2) mg/dL AST 46 H (5-40) units/L ALT 46 (7-56) units/L Alkaline Phosphatase 198 H (35-129) units/L Total Protein 7.0 (6.3-8.2) g/dL Albumin 3.7 L (3.9-5) g/dL Albumin/Globulin Ratio 1.1 % HCG, Qual Negative (Negative) - Medical Decision Making Patient treated in ED with 3 doses of Dilaudid 2 mg and was to Benadryl, Toradol, Zofran, and IV fluids. Positive improvement in sickle cell pain Critical Care Time: No Critical care attestation.: If time is entered above; I have spent that time in minutes in the direct care of this critically ill patient, excluding procedure time. ED Disposition Clinical Impression: Anemia, sickle cell with crisis Disposition: DC-01 TO HOME OR SELFCARE Is pt being admited?: No Condition: Stable Instructions: Hemolytic Anemia Additional Instructions: Continue your medication as prescribed. Follow-up with your doctor or doctor/clinic provided. Return if symptoms worsen as indicated by your discharge instructions. Referrals: Your, magnetic prospecting supervisor [Other] - 3-5 Days
[2020-11-27 14:22] LABS: Hematocrit 24.4 % (30.3-42.9); Hemoglobin 8.2 gm/dl (10.1-14.3); Mean Corpuscular HGB Conc 34 % (30-34); Mean Corpuscular Volume 101 fl (79-97); Platelet Count 368 K/mm3 (140-440); Red Blood Count 2.42 M/mm3 (3.65-5.03); Red Cell Distribution Width 26.9 % (13.2-15.2)
[2020-11-27 14:46] LABS: Alanine Aminotransferase 46 units/L (7-56); Albumin 3.7 g/dL (3.9-5); BUN/Creatinine Ratio 15; Blood Urea Nitrogen 16 mg/dL (7-17); Hemolysis Index 10
[2020-11-27 14:53] LABS: Total Cells Counted 100
[2020-11-27 14:54] LABS: Anisocytosis 3+; Poikilocytosis 3+
[2020-11-27 14:55] LABS: Ovalocytes 1+; Schistocytes Rare; Sickle Cells 1+; Target Cells 1+
[2020-11-27 14:56] LABS: Large Platelets Few; Platelet Estimate Consistent w Auto
[2020-11-27 15:45] VITALS: BP 180/104
== END 2020-11-27 15:44 | disposition home or self-care (01) ==
LOC: ED 10:05
DX: D57.00 Hb-SS disease with crisis, unspecified (principal); I10 Essential (primary) hypertension; M19.91 Primary osteoarthritis, unspecified site; J45.909 Unspecified asthma, uncomplicated; Z90.49 Acquired absence of other specified parts of digestive tract; Z98.890 Other specified postprocedural states; Z79.899 Other long term (current) drug therapy; Z79.1 Long term (current) use of non-steroidal anti-inflammatories (NSAID); Z88.8 Allergy status to other drugs, medicaments and biological substances
CPT/HCPCS: 36415; 80053; 84703; 85007; 85025; 85045; 96361; 96374; 96375; 96376; 99283; J1170; J1200; J1642; J1885; J2405

== ENCOUNTER 2020-12-09 09:34 | Emergency (ER) | payer MEDICAID ==
--- NOTE | 2020-12-09 09:48 | Event Note ---
ED Screening Note Date of service: 12/09/20 Time: 09:48 ED Screening Note: 35-year-old female presents the emergency department with sickle cell crisis pain in her shoulders, back which is typical for her crisis pain. This initial assessment/diagnostic orders/clinical plan/treatment(s) is/are s ubject to change based on patients health status, clinical progression and re- assessment by fellow clinical providers in the ED. Further treatment and workup at subsequent clinical providers discretion. Patient/guardian urged not to elope from the ED as their condition may be serious if not clinically assessed and managed. Initial orders include: Sickle cell protocol
[2020-12-09] MEDS ORDERED: diphenhydrAMINE 25 MG/10 ML ORAL LIQUID PO ONE (09:55)
[2020-12-09] MEDS ORDERED: HYDROmorphone 2 MG/1 ML INJ IM ONE ×3 (09:55→11:33)
[2020-12-09] MEDS ORDERED: ONDANSETRON 4 MG ODT TAB PO ONE (09:55)
[2020-12-09] MEDS ORDERED: amLODIPine 10 MG TAB PO STA (09:55)
[2020-12-09] MEDS ORDERED: cloNIDine 0.2 MG TAB PO STA (09:55)
--- NOTE | 2020-12-09 09:56 | Emergency Department Report ---
ED General Adult HPI - General Chief complaint: Sickle Cell Crisis Stated complaint: SICKLE CELL PAIN PUI?: No Time Seen by Provider: 12/09/20 09:51 Source: patient, RN notes reviewed, old records reviewed Mode of arrival: Ambulatory Limitations: No Limitations - History of Present Illness Initial comments: The patient was evaluated in the emergency department for symptoms described in the history of present illness. He/she was evaluated in the context of the global COVID-19 pandemic, which necessitated consideration that the patient might be at risk for infection with the virus that causes COVID-19. Institutional protocols and algorithms that pertain to the evaluation of patients at risk for COVID-19 are in a state of rapid change based on information released by regulatory bodies including the CDC and federal and state organizations. These policies and algorithms were followed during the patient's care in the emergency department. Please note that these policies, procedures and recommendations changed on a rapid basis. The patient is a 35-year-old female. She is very well-known to myself. The patient is a frequent utilizer of this emergency department. She has a history of hypertension, sickle cell disease, and chronic pain. The patient presents to the ER today with her typical complaint of sickle cell pain. She states that she is not . No cough, no loss of taste or smell, no urinary symptoms. She is currently menstruating. Triggers for sickle cell pain crisis typically include menstruation, cold weather, and change of seasons. She reports this feels similar to prior episodes of sickle cell pain crisis. She reports that sh follows with Dr. Keane of hematology.e Pain typically improves with rest, hydromorphone. -: Gradual, days(s) Location: back, right, upper extremity, lower extremity Quality: aching Consistency: constant Improves with: medication, rest Worsens with: movement - Related Data Home Medications Medication Instructions Recorded Confirmed Last Taken Methadone [Dolophine] 20 mg PO BID 03/19/19 03/22/20 08/18/19 Percocet 5/325 mg 10 mg PO PRN 01/29/20 03/22/20 01/28/20 Previous Rx's Medication Instructions Recorded Last Taken Type Folic Acid [Folvite] 1 mg PO DAILY #30 tablet 08/23/19 01/29/20 Rx Hydroxyurea 500 mg PO DAILY #30 cap 08/23/19 Unknown Rx amLODIPine 10 mg PO QDAY #30 tablet 10/19/19 03/25/20 Rx cloNIDine [Catapres] 0.2 mg PO BID #60 08/23/19 01/28/20 Rx lisinopriL [Zestril TAB] 40 mg PO QDAY #30 tablet 08/23/19 01/28/20 Rx Albuterol Mdi (or & Nicu Only) 2 puff IH QID PRN #1 inhalation 01/13/20 01/29/20 11:27 Rx [ProAir HFA Inhaler] HYDROcodone/APAP 5-325 [[place] 1 - 2 each PO Q6HR PRN #10 tablet 04/05/20 Unknown Rx 5/325] HYDROcodone/APAP 5-325 [[place] 1 - 2 each PO Q6HR PRN #14 tablet 09/09/20 Unknown Rx 5/325] predniSONE [Deltasone] 3 tab PO QDAY 3 Days #9 tab 10/14/20 Unknown Rx HYDROcodone/APAP 5-325 [[place] 1 - 2 each PO Q6HR PRN #14 tablet 11/12/20 Unknown Rx 5/325] Ibuprofen [Motrin 800 MG tab] 800 mg PO Q8HR PRN #20 tablet 11/12/20 Unknown Rx HYDROcodone/APAP 5-325 [[place] 1 - 2 each PO Q6HR PRN #14 tablet 11/22/20 Unknown Rx 5/325] Allergies Allergy/AdvReac Type Severity Reaction Status Date / Time morphine Allergy Shortness Verified 10/21/20 10:14 of Breath vancomycin Allergy Unknown Verified 11/22/20 14:38 ED Review of Systems ROS: Stated complaint: SICKLE CELL PAIN Other details as noted in HPI Constitutional: denies: fever ENT: denies: congestion Respiratory: denies: cough Cardiovascular: denies: chest pain Gastrointestinal: denies: abdominal pain Genitourinary: denies: dysuria Musculoskeletal: back pain, arthralgia, myalgia Skin: denies: lesions Neurological: denies: weakness Hematological/Lymphatic: denies: easy bleeding ED Past Medical Hx - Past Medical History Previous Medical History?: Yes Hx Hypertension: Yes Hx Sickle Cell Disease: Yes Hx Arthritis: Yes Hx Asthma: Yes Additional medical history: ANEMIA, multiple port infections - Surgical History Past Surgical History?: Yes Hx Cholecystectomy: Yes Additional Surgical History: , port removed June 2014. PICC line left upper arm (11/19/2014). . - Social History Smoking Status: Never Smoker Substance Use Type: None - Medications Home Medications: Home Medications Medication Instructions Recorded Confirmed Last Taken Type Methadone [Dolophine] 20 mg PO BID 03/19/19 03/22/20 08/18/19 History Folic Acid [Folvite] 1 mg PO DAILY #30 tablet 08/23/19 03/22/20 01/29/20 Rx Hydroxyurea 500 mg PO DAILY #30 cap 08/23/19 03/22/20 Unknown Rx amLODIPine 10 mg PO QDAY #30 tablet 08/23/19 03/22/20 01/28/20 Rx cloNIDine [Catapres] 0.2 mg PO BID #60 08/23/19 03/22/20 01/28/20 Rx lisinopriL [Zestril TAB] 40 mg PO QDAY #30 tablet 08/23/19 03/22/20 01/28/20 Rx Albuterol Mdi (or & Nicu Only) 2 puff IH QID PRN #1 inhalation 01/13/20 03/22/20 01/29/20 11:27 Rx [ProAir HFA Inhaler] Percocet 5/325 mg 10 mg PO PRN 01/29/20 03/22/20 01/28/20 History HYDROcodone/APAP 5-325 [[place] 1 - 2 each PO Q6HR PRN #10 tablet 04/05/20 Unknown Rx 5/325] HYDROcodone/APAP 5-325 [[place] 1 - 2 each PO Q6HR PRN #14 tablet 09/09/20 Unknown Rx 5/325] predniSONE [Deltasone] 3 tab PO QDAY 3 Days #9 tab 10/14/20 Unknown Rx HYDROcodone/APAP 5-325 [[place] 1 - 2 each PO Q6HR PRN #14 tablet 11/12/20 Unknown Rx 5/325] Ibuprofen [Motrin 800 MG tab] 800 mg PO Q8HR PRN #20 tablet 11/12/20 Unknown Rx HYDROcodone/APAP 5-325 [[place] 1 - 2 each PO Q6HR PRN #14 tablet 11/22/20 Unknown Rx 5/325] ED Physical Exam - General Limitations: No Limitations General appearance: alert, in no apparent distress, obese - Head Head exam: Present: atraumatic, normocephalic - Eye Eye exam: Present: normal appearance, EOMI. Absent: nystagmus - ENT ENT exam: Present: normal exam, normal orophraynx, mucous membranes moist, normal external ear exam - Neck Neck exam: Present: normal inspection, full ROM. Absent: tenderness, meningismus - Respiratory Respiratory exam: Present: normal lung sounds bilaterally. Absent: respiratory distress, wheezes, rales, rhonchi, stridor, decreased breath sounds - Cardiovascular Cardiovascular Exam: Present: regular rate, normal rhythm, normal heart sounds. Absent: bradycardia, tachycardia, irregular rhythm, systolic murmur, diastolic murmur, rubs, gallop - GI/Abdominal GI/Abdominal exam: Present: soft. Absent: distended, tenderness, guarding, rebound, rigid, pulsatile mass - Extremities Exam Extremities exam: Present: normal inspection, full ROM, other (2+ pulses noted in the bilateral upper and lower extremities. There is no palpable cord. negative Homans sign. Muscular compartments are soft. The pelvis is stable.). Absent: pedal edema, calf tenderness - Back Exam Back exam: Present: normal inspection, full ROM. Absent: tenderness, CVA tenderness (R), CVA tenderness (L), paraspinal tenderness, vertebral tenderness - Neurological Exam Neurological exam: Present: alert, normal gait, other (No facial droop. Tongue midline. Extraocular movements intact bilaterally. Facial sensation intact to light touch in V1, V2, V3 distribution bilaterally. 5 and a 5 strength in 4 extremities. Sensation intact to light touch in 4 extremities.). Absent: motor sensory deficit - Psychiatric Psychiatric exam: Present: normal affect, normal mood - Skin Skin exam: Present: warm, dry, intact, normal color. Absent: rash ED Course Vital Signs 12/09/20 12/09/20 12/09/20 09:36 10:32 11:31 Temperature 98.5 F Pulse Rate 74 72 Respiratory 18 20 Rate Blood Pressure 194/102 154/81 Blood Pressure 158/78 [Right] O2 Sat by Pulse 98 98 Oximetry - Reevaluation(s) Reevaluation #1: 12/09/20 11:54 Patient resting comfortably in stretcher, in no acute distress. She is requesting to be discharged. Her blood pressure has improved. ED Medical Decision Making - Lab Data Vital Signs 12/09/20 09:36 Temperature 98.5 F Pulse Rate 74 Respiratory 18 Rate Blood Pressure 194/102 O2 Sat by Pulse 98 Oximetry - Medical Decision Making Differential diagnosis, including the not limited to: Chronic hypertension, sickle cell pain, narcotic dependence Assessment and plan: 35-year-old female, who was afebrile, with reassuring vital signs with the exception of chronically elevated blood pressure, now improved, systolic blood pressure 150, presenting with body aches and pain, after new onset cold weather, which she states is typical of her prior sickle cell pain crisis. I am very familiar with this patient, and have treated her multiple times. I do not see indication for laboratory studies, as this seems to be consistent with patient's prior presentation. In addition, patient has recently had laboratory studies obtained. Initially, while walking into the department, she appeared to be quite comfortable in no acute distress. When I then walked into the patient's room to evaluate and examine her, she appeared to be somewhat distressed and uncomfo rtable. She will be treated with intramuscular hydromorphone as have done in the past. So far, do not see indication to cannulate or access port, she can be medicated with intramuscular hydromorphone. She can follow-up with her outpatient primary care doctor, or time clock repairer for her chronic pain and chronic hypertension. Critical care attestation.: If time is entered above; I have spent that time in minutes in the direct care of this critically ill patient, excluding procedure time. ED Disposition Clinical Impression: Sickle cell pain crisis, Chronic pain syndrome, Hypertension Disposition: DC-01 TO HOME OR SELFCARE Is pt being admited?: No Does the pt Need Aspirin: No Condition: Good Instructions: Hypertension (ED) Additional Instructions: Please continue current outpatient medications. Please follow-up with your primary care doctor or time clock repairer within the next 7 to 10 days. Long-term complications of hypertension include stroke, heart attack, disability, paralysis, loss of quality of life. Therefore, please make certain to control blood pressure appropriately, through medication compliance, diet, exercise, and weight loss. Please return to the emergency room right away with new pain, worsened pain, migration of pain, projectile vomiting, change in mental status, confusion, inability to tolerate liquid feeds, new, worsened or different symptoms not present on the initial emergency room evaluation. Referrals: PATTIE KEANE MD [Referring] - 3-5 Days [facility] [Provider Group] - 3-5 Days
[2020-12-09] MEDS ORDERED: D5W/0.2% NACL 1,000 ML IV SCH (10:00)
[2020-12-09] MEDS ORDERED: LISINOPRIL 40 MG TAB PO STA (10:02)
[2020-12-09] MEDS ORDERED: FOLIC ACID 1 MG TAB PO SCH (11:00)
[2020-12-09 11:32] VITALS: BP 158/78
[2020-12-09] MEDS ORDERED: HYDROmorphone 2 MG/1 ML INJ IV ONE (11:33)
== END 2020-12-09 12:02 | disposition home or self-care (01) ==
LOC: ED 09:34
DX: D57.00 Hb-SS disease with crisis, unspecified (principal); G89.29 Other chronic pain; I10 Essential (primary) hypertension; M19.91 Primary osteoarthritis, unspecified site; J45.909 Unspecified asthma, uncomplicated; Z90.49 Acquired absence of other specified parts of digestive tract; Z98.890 Other specified postprocedural states; Z79.1 Long term (current) use of non-steroidal anti-inflammatories (NSAID); Z79.899 Other long term (current) drug therapy; Z88.8 Allergy status to other drugs, medicaments and biological substances
CPT/HCPCS: 96372; 99282; J1170; Q0163; Q0162

== ENCOUNTER 2020-12-11 16:00 | Emergency (ER) | payer MEDICAID ==
[2020-12-11] MEDS ORDERED: HYDROmorphone 1 MG/1 ML INJ IV ONE ×4 (17:05→19:30)
[2020-12-11] MEDS ORDERED: diphenhydrAMINE 50 MG/ML VIAL IV ONE ×2 (17:05→18:32)
[2020-12-11] MEDS ORDERED: KETOROLAC 30 MG/1 ML INJ IV ONE (17:05)
[2020-12-11] MEDS ORDERED: SODIUM CHLORIDE 0.9% 1000 ML 1,000 ML IV ONE ×2 (17:05)
[2020-12-11] MEDS ORDERED: ONDANSETRON 4 MG/2 ML INJ IV ONE (17:40)
--- NOTE | 2020-12-11 18:07 | Emergency Department Report ---
ED General Adult HPI - General Chief complaint: Sickle Cell Crisis Stated complaint: SICKLE CELL PAIN Time Seen by Provider: 12/11/20 16:59 Source: patient Mode of arrival: Ambulatory Limitations: No Limitations - History of Present Illness Initial comments: Patient is a 35-year-old F [place] female with a history of sickle cell disease who is presenting with her sickle cell crisis. Patient well-known to our department. She was here 2 days ago but did not receive fluids on the pain medications. Patient states she is continued to have pain in the legs arms and back. She denies any fevers chills cough cold or congestion. Patient states pain is a 8 out of 10 in severity Severity scale (0 -10): 10 - Related Data Home Medications Medication Instructions Recorded Confirmed Last Taken Methadone [Dolophine] 20 mg PO BID 03/19/19 03/22/20 08/18/19 Percocet 5/325 mg 10 mg PO PRN 01/29/20 03/22/20 01/28/20 Previous Rx's Medication Instructions Recorded Last Taken Type Folic Acid [Folvite] 1 mg PO DAILY #30 tablet 08/23/19 01/29/20 Rx Hydroxyurea 500 mg PO DAILY #30 cap 08/23/19 Unknown Rx amLODIPine 10 mg PO QDAY #30 tablet 08/23/19 01/28/20 Rx cloNIDine [Catapres] 0.2 mg PO BID #60 08/23/19 01/28/20 Rx lisinopriL [Zestril TAB] 40 mg PO QDAY #30 tablet 08/23/19 01/28/20 Rx Albuterol Mdi (or & Nicu Only) 2 puff IH QID PRN #1 inhalation 01/13/20 01/29/20 11:27 Rx [ProAir HFA Inhaler] HYDROcodone/APAP 5-325 [[place] 1 - 2 each PO Q6HR PRN #10 tablet 04/05/20 Unknown Rx 5/325] HYDROcodone/APAP 5-325 [[place] 1 - 2 each PO Q6HR PRN #14 tablet 09/09/20 Unknown Rx 5/325] predniSONE [Deltasone] 3 tab PO QDAY 3 Days #9 tab 10/14/20 Unknown Rx HYDROcodone/APAP 5-325 [[place] 1 - 2 each PO Q6HR PRN #14 tablet 11/12/20 Unknown Rx 5/325] Ibuprofen [Motrin 800 MG tab] 800 mg PO Q8HR PRN #20 tablet 11/12/20 Unknown Rx HYDROcodone/APAP 5-325 [[place] 1 - 2 each PO Q6HR PRN #14 tablet 11/22/20 Unknown Rx 5/325] Allergies Allergy/AdvReac Type Severity Reaction Status Date / Time morphine Allergy Shortness Verified 10/21/20 10:14 of Breath vancomycin Allergy Unknown Verified 11/22/20 14:38 ED Review of Systems ROS: Stated complaint: SICKLE CELL PAIN Other details as noted in HPI Comment: All other systems reviewed and negative ED Past Medical Hx - Past Medical History Previous Medical History?: Yes Hx Hypertension: Yes Hx Sickle Cell Disease: Yes Hx Arthritis: Yes Hx Asthma: Yes Additional medical history: ANEMIA, multiple port infections - Surgical History Past Surgical History?: Yes Hx Cholecystectomy: Yes Additional Surgical History: , port removed June 2014. PICC line left upper arm (11/19/2014). . - Social History Smoking Status: Never Smoker Substance Use Type: None - Medications Home Medications: Home Medications Medication Instructions Recorded Confirmed Last Taken Type Methadone [Dolophine] 20 mg PO BID 03/19/19 03/22/20 08/18/19 History Folic Acid [Folvite] 1 mg PO DAILY #30 tablet 08/23/19 03/22/20 01/29/20 Rx Hydroxyurea 500 mg PO DAILY #30 cap 08/23/19 03/22/20 Unknown Rx amLODIPine 10 mg PO QDAY #30 tablet 08/23/19 03/22/20 01/28/20 Rx cloNIDine [Catapres] 0.2 mg PO BID #60 08/23/19 03/22/20 01/28/20 Rx lisinopriL [Zestril TAB] 40 mg PO QDAY #30 tablet 08/23/19 03/22/20 01/28/20 Rx Albuterol Mdi (or & Nicu Only) 2 puff IH QID PRN #1 inhalation 01/13/20 03/22/20 01/29/20 11:27 Rx [ProAir HFA Inhaler] Percocet 5/325 mg 10 mg PO PRN 01/29/20 03/22/20 01/28/20 History HYDROcodone/APAP 5-325 [[place] 1 - 2 each PO Q6HR PRN #10 tablet 04/05/20 Unknown Rx 5/325] HYDROcodone/APAP 5-325 [[place] 1 - 2 each PO Q6HR PRN #14 tablet 09/09/20 Unknown Rx 5/325] predniSONE [Deltasone] 3 tab PO QDAY 3 Days #9 tab 10/14/20 Unknown Rx HYDROcodone/APAP 5-325 [[place] 1 - 2 each PO Q6HR PRN #14 tablet 11/12/20 Unknown Rx 5/325] Ibuprofen [Motrin 800 MG tab] 800 mg PO Q8HR PRN #20 tablet 11/12/20 Unknown Rx HYDROcodone/APAP 5-325 [[place] 1 - 2 each PO Q6HR PRN #14 tablet 11/22/20 Unknown Rx 5/325] ED Physical Exam - General Limitations: No Limitations General appearance: alert, in no apparent distress - Head Head exam: Present: atraumatic, normocephalic - Eye Eye exam: Present: normal appearance - ENT ENT exam: Present: normal orophraynx, mucous membranes moist - Neck Neck exam: Present: normal inspection - Respiratory Respiratory exam: Present: normal lung sounds bilaterally. Absent: respiratory distress, wheezes, rales, rhonchi - Cardiovascular Cardiovascular Exam: Present: regular rate, normal rhythm, normal heart sounds. Absent: systolic murmur, diastolic murmur, rubs, gallop - GI/Abdominal GI/Abdominal exam: Present: soft, normal bowel sounds. Absent: distended, tenderness, guarding, rebound - Extremities Exam Extremities exam: Present: normal inspection - Back Exam Back exam: Present: normal inspection - Neurological Exam Neurological exam: Present: alert, oriented X3 - Psychiatric Psychiatric exam: Present: normal affect, normal mood - Skin Skin exam: Present: warm, dry, intact, normal color. Absent: rash ED Course Vital Signs 12/11/20 16:25 Temperature 98.8 F Pulse Rate 72 Respiratory 20 Rate Blood Pressure 185/95 O2 Sat by Pulse 99 Oximetry ED Medical Decision Making - Medical Decision Making Had a conversation with the patient regarding whether she believes she needed to be admitted or just have pain control emergency department. She states she has an appointment next week to see her slack cooper. She states she does not believe that she needs to be admitted and she is feeling some improvement after the second dose of Dilaudid. States she feels like she needs 1 more which is been ordered. Patient be discharged afterward. Critical care attestation.: If time is entered above; I have spent that time in minutes in the direct care of this critically ill patient, excluding procedure time. ED Disposition Clinical Impression: Anemia, sickle cell with crisis Disposition: DC-01 TO HOME OR SELFCARE Is pt being admited?: No Does the pt Need Aspirin: No Condition: Stable Referrals: PRIMARY CARE, [Primary Care Provider] - 3-5 Days Time of Disposition: 20:00
[2020-12-11 21:21] VITALS: BP 171/68
== END 2020-12-11 20:10 | disposition home or self-care (01) ==
LOC: ED 16:00
DX: D57.00 Hb-SS disease with crisis, unspecified (principal); I10 Essential (primary) hypertension; M19.91 Primary osteoarthritis, unspecified site; J45.909 Unspecified asthma, uncomplicated; Z90.49 Acquired absence of other specified parts of digestive tract; Z98.890 Other specified postprocedural states; Z79.1 Long term (current) use of non-steroidal anti-inflammatories (NSAID); Z79.899 Other long term (current) drug therapy; Z88.8 Allergy status to other drugs, medicaments and biological substances
CPT/HCPCS: 96361; 96374; 96375; 96376; 99282; J1170; J1200; J1642; J1885; J2405; J7030

== ENCOUNTER 2020-12-16 17:34 | Emergency (ER) | payer MEDICAID ==
[2020-12-16] MEDS ORDERED: SODIUM CHLORIDE 0.9% 1000 ML 1,000 ML IV ONE ×2 (17:58→19:22)
--- NOTE | 2020-12-16 18:15 | Event Note ---
ED Screening Note Date of service: 12/16/20 Time: 17:40 ED Screening Note: Patient is a 35-year-old -[place]ol[place] female with a history of chronic pain due to sickle cell anemia with frequent pain crisis presents to the ED with acute onset persistent severe low back pain, bilateral lower extremity pain and mild suprapubic pelvic cramps for the last 2 days. Patient states that she has taken her regular pain medications at home Percocet 10 mg - 325 mg with no relief. Patient states that she is also currently on her menstrual cycle and attributes the pelvic cramps to dysmenorrhea. Patient denies chest pain, shortness of breath, dizziness, nausea and vomiting, fever, chills, cough, he adache, dysuria, urinary frequency and urgency. This initial assessment/diagnostic orders/clinical plan/treatment(s) is/are subject to change based on patients health status, clinical progression and re- assessment by fellow clinical providers in the ED. Further treatment and workup at subsequent clinical providers discretion. Patient/guardian urged not to elope from the ED as their condition may be serious if not clinically assessed and managed. Initial orders include: CBC, CMP, urinalysis, hCG serum, chest x-ray, reticulocyte count, normal saline 1 L IV bolus x1
[2020-12-16] MEDS ORDERED: diphenhydrAMINE 50 MG/ML VIAL IV ONE (19:22)
[2020-12-16] MEDS ORDERED: ONDANSETRON 4 MG/2 ML INJ IV ONE (19:22)
[2020-12-16] MEDS ORDERED: HYDROmorphone 1 MG/1 ML INJ IV ONE ×2 (19:23→19:40)
--- NOTE | 2020-12-16 19:25 | Emergency Department Report ---
ED General Adult HPI - General Chief complaint: Pain General Stated complaint: SICKLE CELL CRISIS Time Seen by Provider: 12/16/20 19:16 Source: patient Mode of arrival: Ambulatory Limitations: No Limitations - History of Present Illness Initial comments: The patient presents to the emergency department the chief complaint of sickle cell crisis. Patient complains of allover body pain due to her sickle cell crisis. Patient states she is on her cycle and this is normally when she goes into crisis. Patient states she is taking Percocet at home to no avail. Patient denies chest pain or shortness of breath. Patient states any type of movement makes her symptoms worse. -: Sudden Location: upper extremity, lower extremity Severity scale (0 -10): 7 Quality: sharp Consistency: constant Improves with: none Worsens with: movement Associated Symptoms: denies other symptoms. denies: chest pain Treatments Prior to Arrival: none - Related Data Home Medications Medication Instructions Recorded Confirmed Last Taken Methadone [Dolophine] 20 mg PO BID 03/19/19 03/22/20 08/18/19 Percocet 5/325 mg 10 mg PO PRN 01/29/20 03/22/20 01/28/20 Previous Rx's Medication Instructions Recorded Last Taken Type Folic Acid [Folvite] 1 mg PO DAILY #30 tablet 08/23/19 01/29/20 Rx Hydroxyurea 500 mg PO DAILY #30 cap 08/23/19 Unknown Rx amLODIPine 10 mg PO QDAY #30 tablet 08/23/19 01/28/20 Rx cloNIDine [Catapres] 0.2 mg PO BID #60 08/23/19 01/28/20 Rx lisinopriL [Zestril TAB] 40 mg PO QDAY #30 tablet 08/23/19 01/28/20 Rx Albuterol Mdi (or & Nicu Only) 2 puff IH QID PRN #1 inhalation 01/13/20 01/29/20 11:27 Rx [ProAir HFA Inhaler] HYDROcodone/APAP 5-325 [[place] 1 - 2 each PO Q6HR PRN #10 tablet 04/05/20 Unknown Rx 5/325] HYDROcodone/APAP 5-325 [[place] 1 - 2 each PO Q6HR PRN #14 tablet 09/09/20 Unknown Rx 5/325] predniSONE [Deltasone] 3 tab PO QDAY 3 Days #9 tab 10/14/20 Unknown Rx HYDROcodone/APAP 5-325 [[place] 1 - 2 each PO Q6HR PRN #14 tablet 11/12/20 Unknown Rx 5/325] Ibuprofen [Motrin 800 MG tab] 800 mg PO Q8HR PRN #20 tablet 11/12/20 Unknown Rx HYDROcodone/APAP 5-325 [[place] 1 - 2 each PO Q6HR PRN #14 tablet 11/22/20 Unknown Rx 5/325] Allergies Allergy/AdvReac Type Severity Reaction Status Date / Time morphine Allergy Shortness Verified 12/16/20 17:45 of Breath vancomycin Allergy Unknown Verified 12/16/20 17:45 ED Review of Systems ROS: Stated complaint: SICKLE CELL CRISIS Other details as noted in HPI Comment: All other systems reviewed and negative Constitutional: denies: chills, fever Eyes: denies: eye pain, eye discharge, vision change ENT: denies: ear pain, throat pain Respiratory: denies: cough, shortness of breath, wheezing Cardiovascular: denies: chest pain, palpitations Endocrine: no symptoms reported Gastrointestinal: denies: abdominal pain, nausea, diarrhea Genitourinary: denies: urgency, dysuria, discharge Musculoskeletal: denies: back pain, joint swelling, arthralgia Skin: denies: rash, lesions Neurological: denies: headache, weakness, paresthesias Psychiatric: denies: anxiety, depression Hematological/Lymphatic: denies: easy bleeding, easy bruising ED Past Medical Hx - Past Medical History Hx Hypertension: Yes Hx Sickle Cell Disease: Yes Hx Arthritis: Yes Hx Asthma: Yes Additional medical history: ANEMIA, multiple port infections - Surgical History Hx Cholecystectomy: Yes Additional Surgical History: , port removed June 2014. PICC line left upper arm (11/19/2014). . - Social History Smoking Status: Never Smoker Substance Use Type: None - Medications Home Medications: Home Medications Medication Instructions Recorded Confirmed Last Taken Type Methadone [Dolophine] 20 mg PO BID 03/19/19 03/22/20 08/18/19 History Folic Acid [Folvite] 1 mg PO DAILY #30 tablet 08/23/19 03/22/20 01/29/20 Rx Hydroxyurea 500 mg PO DAILY #30 cap 08/23/19 03/22/20 Unknown Rx amLODIPine 10 mg PO QDAY #30 tablet 08/23/19 03/22/2001/27/20 Rx cloNIDine [Catapres] 0.2 mg PO BID #60 08/23/19 03/22/20 01/28/20 Rx lisinopriL [Zestril TAB] 40 mg PO QDAY #30 tablet 08/23/19 03/22/20 01/28/20 Rx Albuterol Mdi (or & Nicu Only) 2 puff IH QID PRN #1 inhalation 01/13/20 03/22/20 01/29/20 11:27 Rx [ProAir HFA Inhaler] Percocet 5/325 mg 10 mg PO PRN 01/29/20 03/22/20 01/28/20 History HYDROcodone/APAP 5-325 [[place] 1 - 2 each PO Q6HR PRN #10 tablet 04/05/20 Unknown Rx 5/325] HYDROcodone/APAP 5-325 [[place] 1 - 2 each PO Q6HR PRN #14 tablet 09/09/20 Unknown Rx 5/325] predniSONE [Deltasone] 3 tab PO QDAY 3 Days #9 tab 10/14/20 Unknown Rx HYDROcodone/APAP 5-325 [[place] 1 - 2 each PO Q6HR PRN #14 tablet 11/12/20 Unknown Rx 5/325] Ibuprofen [Motrin 800 MG tab] 800 mg PO Q8HR PRN #20 tablet 11/12/20 Unknown Rx HYDROcodone/APAP 5-325 [[place] 1 - 2 each PO Q6HR PRN #14 tablet 11/22/20 Unknown Rx 5/325] ED Physical Exam - General Limitations: No Limitations General appearance: alert, in no apparent distress - Head Head exam: Present: atraumatic, normocephalic - Eye Eye exam: Present: normal appearance, PERRL, EOMI - ENT ENT exam: Present: mucous membranes moist - Neck Neck exam: Present: normal inspection - Respiratory Respiratory exam: Present: normal lung sounds bilaterally. Absent: respiratory distress - Cardiovascular Cardiovascular Exam: Present: regular rate, normal rhythm. Absent: systolic m urmur, diastolic murmur, rubs, gallop - GI/Abdominal GI/Abdominal exam: Present: soft, normal bowel sounds. Absent: distended, tenderness - Extremities Exam Extremities exam: Present: normal inspection - Back Exam Back exam: Present: normal inspection - Neurological Exam Neurological exam: Present: alert, oriented X3, CN II-XII intact. Absent: motor sensory deficit - Psychiatric Psychiatric exam: Present: normal affect, normal mood - Skin Skin exam: Present: warm, dry, intact, normal color. Absent: rash ED Course Vital Signs 12/16/20 17:49 Temperature 98.2 F Pulse Rate 77 Respiratory 18 Rate Blood Pressure 172/93 O2 Sat by Pulse 100 Oximetry ED Medical Decision Making - Lab Data Result diagrams: 12/16/20 17:57 12/16/20 17:57 Lab Results 12/16/20 12/16/20 12/16/20 Range/Units 17:57 17:57 19:22 WBC 14.2 H (4.5-11.0) K/mm3 RBC 3.16 L (3.65-5.03) M/mm3 Hgb 9.7 L (10.1-14.3) gm/dl Hct 29.9 L (30.3-42.9) % MCV 95 (79-97) fl MCH 31 (28-32) pg MCHC 33 (30-34) % RDW 16.9 H (13.2-15.2) % Plt Count 558 H (140-440) K/mm3 Lymph % (Auto) 23.0 (13.4-35.0) % [place] % (Auto) 6.8 (0.0-7.3) % Eos % (Auto) 6.5 H (0.0-4.3) % Baso % (Auto) 1.7 (0.0-1.8) % Lymph # (Auto) 3.3 (1.2-5.4) K/mm3 [place] # (Auto) 1.0 H (0.0-0.8) K/mm3 Eos # (Auto) 0.9 H (0.0-0.4) K/mm3 Baso # (Auto) 0.2 H (0.0-0.1) K/mm3 Seg Neutrophils % 62.0 (40.0-70.0) % Seg Neutrophils # 8.8 H (1.8-7.7) K/mm3 Percent Retic 6.07 H (0.78-2.58) % Sodium 140 (137-145) mmol/L Potassium 4.6 (3.6-5.0) mmol/L Chloride 105.9 (98-107) mmol/L Carbon Dioxide 29 (22-30) mmol/L Anion Gap 10 mmol/L BUN 14 (7-17) mg/dL Creatinine 0.9 (0.6-1.2) mg/dL Estimated GFR > 60 ml/min BUN/Creatinine Ratio 16 % Glucose 99 (65-100) mg/dL Calcium 9.1 (8.4-10.2) mg/dL Total Bilirubin 0.70 (0.1-1.2) mg/dL AST 60 H (5-40) units/L ALT 82 H (7-56) units/L Alkaline Phosphatase 202 H (35-129) units/L Lactate Dehydrogenase 428 H (91-180) units/L Total Protein 6.5 (6.3-8.2) g/dL Albumin 3.7 L (3.9-5) g/dL Albumin/Globulin Ratio 1.3 % HCG, Qual (Negative) 12/16/20 Range/Units Unknown WBC (4.5-11.0) K/mm3 RBC (3.65-5.03) M/mm3 Hgb (10.1-14.3) gm/dl Hct (30.3-42.9) % MCV (79-97) fl MCH (28-32) pg MCHC (30-34) % RDW (13.2-15.2) % Plt Count (140-440) K/mm3 Lymph % (Auto) (13.4-35.0) % [place] % (Auto) (0.0-7.3) % Eos % (Auto) (0.0-4.3) % Baso % (Auto) (0.0-1.8) % Lymph # (Auto) (1.2-5.4) K/mm3 [place] # (Auto) (0.0-0.8) K/mm3 Eos # (Auto) (0.0-0.4) K/mm3 Baso # (Auto) (0.0-0.1) K/mm3 Seg Neutrophils % (40.0-70.0) % Seg Neutrophils # (1.8-7.7) K/mm3 Percent Retic (0.78-2.58) % Sodium (137-145) mmol/L Potassium (3.6-5.0) mmol/L Chloride (98-107) mmol/L Carbon Dioxide (22-30) mmol/L Anion Gap mmol/L BUN (7-17) mg/dL Creatinine (0.6-1.2) mg/dL Estimated GFR ml/min BUN/Creatinine Ratio % Glucose (65-100) mg/dL Calcium (8.4-10.2) mg/dL Total Bilirubin (0.1-1.2) mg/dL AST (5-40) units/L ALT (7-56) units/L Alkaline Phosphatase (35-129) units/L Lactate Dehydrogenase (91-180) units/L Total Protein (6.3-8.2) g/dL Albumin (3.9-5) g/dL Albumin/Globulin Ratio % HCG, Qual Negative (Negative) - Medical Decision Making Patient had relief of her symptoms with IV pain medications Elevated white count is likely secondary to acute stress reaction secondary to pain Critical care attestation.: If time is entered above; I have spent that time in minutes in the direct care of this critically ill patient, excluding procedure time. ED Disposition Clinical Impression: Sickle cell anemia with pain, Sickle cell pain crisis Disposition: DC- TO HOME OR SELFCARE Is pt being admited?: No Does the pt Need Aspirin: No Condition: Stable Instructions: Hemolytic Anemia Additional Instructions: return if worse Referrals: PRIMARY CARE, [Primary Care Provider] - 3-5 Days SHAYE ESPINOZA MD [Staff Physician] - 3-5 Days Time of Disposition: 21:32
[2020-12-16 19:54] LABS: Basophils # (Auto) 0.2 K/mm3 (0.0-0.1); Basophils % (Auto) 1.7 % (0.0-1.8); Eosinophils # (Auto) 0.9 K/mm3 (0.0-0.4); Eosinophils % (Auto) 6.5 % (0.0-4.3); Hematocrit 29.9 % (30.3-42.9); Hemoglobin 9.7 gm/dl (10.1-14.3); Lymphocytes # (Auto) 3.3 K/mm3 (1.2-5.4); Mean Corpuscular HGB Conc 33 % (30-34); Mean Corpuscular Volume 95 fl (79-97); Monocytes % (Auto) 6.8 % (0.0-7.3); Platelet Count 558 K/mm3 (140-440); Red Blood Count 3.16 M/mm3 (3.65-5.03); Red Cell Distribution Width 16.9 % (13.2-15.2)
[2020-12-16 20:09] LABS: Alanine Aminotransferase 82 units/L (7-56); Albumin 3.7 g/dL (3.9-5); BUN/Creatinine Ratio 16; Blood Urea Nitrogen 14 mg/dL (7-17); Calcium 9.1 mg/dL (8.4-10.2); Hemolysis Index 1
[2020-12-16] MEDS ORDERED: HYDROmorphone 2 MG/1 ML INJ IV ONE ×2 (20:11→21:18)
--- NOTE | 2020-12-16 20:36 | XRay Report ---
CHEST 1 VIEW INDICATION / CLINICAL INFORMATION: PAIN. Chest pain FINDINGS: SUPPORT DEVICES: None. HEART / MEDIASTINUM: Cardiomegaly. LUNGS / PLEURA: Mild bilateral interstitial edema. Prominent pulmonary vasculature. Signer Name: Santy Santizo MD Signed: 12/16/2020 8:32 PM Workstation Name: [id number]
[2020-12-16 22:04] VITALS: BP 162/71
== END 2020-12-16 21:55 | disposition home or self-care (01) ==
LOC: ED 17:34
DX: D57.00 Hb-SS disease with crisis, unspecified (principal); I10 Essential (primary) hypertension; M19.91 Primary osteoarthritis, unspecified site; J45.909 Unspecified asthma, uncomplicated; Z90.49 Acquired absence of other specified parts of digestive tract; Z98.890 Other specified postprocedural states; Z79.1 Long term (current) use of non-steroidal anti-inflammatories (NSAID); Z79.899 Other long term (current) drug therapy; Z88.8 Allergy status to other drugs, medicaments and biological substances
CPT/HCPCS: 36415; 71045; 80053; 83615; 84703; 85025; 85045; 96361; 96374; 96375; 96376; 99284; J1170; J1200; J1642; J2405; J7030

== ENCOUNTER 2020-12-18 15:15 | Emergency (ER) | payer MEDICAID ==
--- NOTE | 2020-12-18 15:29 | Event Note ---
ED Screening Note Date of service: 12/18/20 Time: 15:25 ED Screening Note: This initial assessment/diagnostic orders/clinical plan/treatment(s) is/are subject to change based on patients health status, clinical progression and re- assessment by fellow clinical providers in the ED. Further treatment and workup at subsequent clinical providers discretion. Patient/guardian urged not to elope from the ED as their condition may be serious if not clinically assessed and managed. Initial orders include: 35-year-old female with a history of sickle cell her pain is usually controlled with her Percocet she is complaining of arm leg and back pain x2 days unrelieved with Percocet. She denies chest pain shortness of breath no fever cough nausea vomiting. Patient in no acute distress
[2020-12-18] MEDS ORDERED: ONDANSETRON 4 MG/2 ML INJ IV ONE (17:38)
[2020-12-18] MEDS ORDERED: HYDROmorphone 2 MG/1 ML INJ IV ONE ×2 (17:38→18:02)
[2020-12-18] MEDS ORDERED: diphenhydrAMINE 50 MG/ML VIAL IV ONE (17:38)
[2020-12-18 17:52] LABS: Hematocrit 27.4 % (30.3-42.9); Hemoglobin 9.2 gm/dl (10.1-14.3); Mean Corpuscular HGB Conc 34 % (30-34); Mean Corpuscular Volume 93 fl (79-97); Platelet Count 526 K/mm3 (140-440); Red Blood Count 2.94 M/mm3 (3.65-5.03); Red Cell Distribution Width 16.6 % (13.2-15.2)
[2020-12-18] MEDS ORDERED: D5W/0.2% NACL 1,000 ML IV SCH (18:00)
[2020-12-18 18:08] LABS: Albumin 3.7 g/dL (3.9-5)
[2020-12-18 18:21] LABS: Calcium 8.8 mg/dL (8.4-10.2)
[2020-12-18] MEDS ORDERED: HYDROmorphone 1 MG/1 ML INJ IV ONE ×2 (18:26→19:19)
[2020-12-18 19:06] LABS: Anisocytosis Few; Total Cells Counted 100
[2020-12-18 19:07] LABS: Giant Platelets Rare; Hypochromasia Few; Schistocytes Few; Sickle Cells 1+; Spherocytes Rare
[2020-12-18 20:23] VITALS: BP 140/76
--- NOTE | 2020-12-18 22:11 | Emergency Department Report ---
ED General Adult HPI - General Chief complaint: Sickle Cell Crisis Stated complaint: SSC PUI?: No Time Seen by Provider: 12/18/20 17:25 Source: patient Mode of arrival: Ambulatory Limitations: No Limitations - History of Present Illness Initial comments: Chief complaint: "My back and legs hurt. HPI: This is a 35-year-old female with history of sickle cell hemoglobin SS disease who presents with back and leg pain 10 out of 10 in severity. Gradual onset 2 days ago. She uses home medication Percocet. She did not have any re lief with home medication. She denies any injury or fever. She denies chest pain shortness of breath. Her primary personal driver Dr. Keane -: Gradual, days(s) (2) Location: back, left, right, upper extremity, lower extremity Severity scale (0 -10): 10 Quality: aching Consistency: constant Improves with: none Worsens with: none Associated Symptoms: denies other symptoms Treatments Prior to Arrival: other (Home medication Percocet) - Related Data Home Medications Medication Instructions Recorded Confirmed Last Taken Methadone [Dolophine] 20 mg PO BID 03/19/19 03/22/20 08/18/19 Percocet 5/325 mg 10 mg PO PRN 01/29/20 03/22/20 01/28/20 Previous Rx's Medication Instructions Recorded Last Taken Type Folic Acid [Folvite] 1 mg PO DAILY #30 tablet 08/23/19 01/29/20 Rx Hydroxyurea 500 mg PO DAILY #30 cap 08/23/19 Unknown Rx amLODIPine 10 mg PO QDAY #30 tablet 08/23/19 01/28/20 Rx cloNIDine [Catapres] 0.2 mg PO BID #60 08/23/19 01/28/20 Rx lisinopriL [Zestril TAB] 40 mg PO QDAY #30 tablet 08/23/19 01/28/20 Rx Albuterol Mdi (or & Nicu Only) 2 puff IH QID PRN #1 inhalation 01/13/20 01/29/20 11:27 Rx [ProAir HFA Inhaler] HYDROcodone/APAP 5-325 [[place] 1 - 2 each PO Q6HR PRN #10 tablet 04/05/20 Unknown Rx 5/325] HYDROcodone/APAP 5-325 [[place] 1 - 2 each PO Q6HR PRN #14 tablet 11/05/20 Unknown Rx 5/325] predniSONE [Deltasone] 3 tab PO QDAY 3 Days #9 tab 10/14/20 Unknown Rx HYDROcodone/APAP 5-325 [[place] 1 - 2 each PO Q6HR PRN #14 tablet 11/12/20 Unknown Rx 5/325] Ibuprofen [Motrin 800 MG tab] 800 mg PO Q8HR PRN #20 tablet 11/12/20 Unknown Rx HYDROcodone/APAP 5-325 [[place] 1 - 2 each PO Q6HR PRN #14 tablet 11/22/20 Unknown Rx 5/325] Allergies Allergy/AdvReac Type Severity Reaction Status Date / Time morphine Allergy Shortness Verified 12/16/20 17:45 of Breath vancomycin Allergy Unknown Verified 12/16/20 17:45 ED Review of Systems ROS: Stated complaint: SSC Other details as noted in HPI Comment: All other systems reviewed and negative Constitutional: denies: fever, malaise ENT: denies: epistaxis Respiratory: denies: cough Gastrointestinal: denies: abdominal pain, nausea, vomiting Neurological: denies: headache ED Past Medical Hx - Past Medical History Previous Medical History?: Yes Hx Hypertension: Yes Hx Sickle Cell Disease: Yes Hx Arthritis: Yes Hx Asthma: Yes Additional medical history: ANEMIA, multiple port infections - Surgical History Past Surgical History?: Yes Hx Cholecystectomy: Yes Additional Surgical History: , port removed June 2014. PICC line left upper arm (11/19/2014). . - Social History Smoking Status: Never Smoker - Medications Home Medications: Home Medications Medication Instructions Recorded Confirmed Last Taken Type Methadone [Dolophine] 20 mg PO BID 03/19/19 03/22/20 08/18/19 History Folic Acid [Folvite] 1 mg PO DAILY #30 tablet 08/23/19 03/22/20 01/29/20 Rx Hydroxyurea 500 mg PO DAILY #30 cap 08/23/19 03/22/20 Unknown Rx amLODIPine 10 mg PO QDAY #30 tablet 08/23/19 03/22/20 01/28/20 Rx cloNIDine [Catapres] 0.2 mg PO BID #60 08/23/19 03/22/20 01/28/20 Rx lisinopriL [Zestril TAB] 40 mg PO QDAY #30 tablet 10/03/22/20 01/28/20 Rx Albuterol Mdi (or & Nicu Only) 2 puff IH QID PRN #1 inhalation 01/13/20 03/22/20 01/29/20 11:27 Rx [ProAir HFA Inhaler] Percocet 5/325 mg 10 mg PO PRN 01/29/20 03/22/20 01/28/20 History HYDROcodone/APAP 5-325 [[place] 1 - 2 each PO Q6HR PRN #10 tablet 04/05/20 Unknown Rx 5/325] HYDROcodone/APAP 5-325 [[place] 1 - 2 each PO Q6HR PRN #14 tablet 09/09/20 Unknown Rx 5/325] predniSONE [Deltasone] 3 tab PO QDAY 3 Days #9 tab 10/14/20 Unknown Rx HYDROcodone/APAP 5-325 [[place] 1 - 2 each PO Q6HR PRN #14 tablet 11/12/20 Unknown Rx 5/325] Ibuprofen [Motrin 800 MG tab] 800 mg PO Q8HR PRN #20 tablet 11/12/20 Unknown Rx HYDROcodone/APAP 5-325 [[place] 1 - 2 each PO Q6HR PRN #14 tablet 11/22/20 Unknown Rx 5/325] ED Physical Exam - General Limitations: No Limitations General appearance: alert, in no apparent distress - Head Head exam: Present: atraumatic, normocephalic - Eye Eye exam: Present: normal appearance - ENT ENT exam: Present: mucous membranes moist - Neck Neck exam: Present: normal inspection, full ROM - Respiratory Respiratory exam: Present: normal lung sounds bilaterally. Absent: respiratory distress, wheezes, rales, rhonchi - Cardiovascular Cardiovascular Exam: Present: regular rate, normal rhythm, normal heart sounds, other (Port site without erythema tenderness or drainage). Absent: systolic murmur, diastolic murmur, rubs, gallop - GI/Abdominal GI/Abdominal exam: Present: soft, normal bowel sounds. Absent: distended, tenderness, guarding, rebound - Extremities Exam Extremities exam: Present: normal inspection - Neurological Exam Neurological exam: Present: alert, oriented X3, normal gait - Psychiatric Psychiatric exam: Present: normal affect, normal mood - Skin Skin exam: Present: warm, dry, intact, normal color. Absent: rash ED Course Vital Signs 12/18/20 12/18/20 12/18/20 15:19 17:43 18:17 Temperature 98.6 F Pulse Rate 83 78 77 Respiratory 20 16 15 Rate Blood Pressure 164/86 Blood Pressure 165/88 151/97 [Right] O2 Sat by Pulse 99 100 94 Oximetry 12/18/20 20:22 Temperature Pulse Rate 80 Respiratory 18 Rate Blood Pressure Blood Pressure 140/76 [Right] O2 Sat by Pulse 99 Oximetry ED Medical Decision Making - Lab Data Result diagrams: 12/18/20 15:25 12/18/20 15:25 Laboratory Results - last 24 hr 12/18/20 12/18/20 15:25 15:25 WBC 16.9 H RBC 2.94 L Hgb 9.2 L Hct 27.4 L MCV 93 MCH 31 MCHC 34 RDW 16.6 H Plt Count 526 H Lymph # (Auto) Resident Engineer Add Manual Diff Complete Total Counted 100 Seg Neuts % (Manual) 60.0 Lymphocytes % (Manual) 28.0 Monocytes % (Manual) 10.0 H Eosinophils % (Manual) 2.0 Nucleated RBC % Not Reportable Seg Neutrophils # Man 10.1 H Band Neutrophils # 0.0 Lymphocytes # (Manual) 4.7 Abs React Lymphs (Man) 0.0 Monocytes # (Manual) 1.7 H Eosinophils # (Manual) 0.3 Basophils # (Manual) 0.0 Metamyelocytes # 0.0 Myelocytes # 0.0 Promyelocytes # 0.0 Blast Cells # 0.0 WBC Morphology Not Reportable Hypersegmented Neuts Not Reportable Hyposegmented Neuts Not Reportable Hypogranular Neuts Not Reportable Smudge Cells Not Reportable Toxic Granulation Not Reportable Toxic Vacuolation Not Reportable Dohle Bodies Not Reportable Pelger-Huet Anomaly Not Reportable Ariadne Rods Not Reportable Platelet Estimate Not Reportable Clumped Platelets Not Reportable Plt Clumps, EDTA Not Reportable Large Platelets Not Reportable Giant Platelets Rare Platelet Satelliting Not Reportable Plt Morphology Comment Not Reportable RBC Morphology Not Reportable Dimorphic RBCs Not Reportable Polychromasia Not Reportable Hypochromasia Few Poikilocytosis Not Reportable Anisocytosis Few Microcytosis Rare Macrocytosis Not Reportable Spherocytes Rare Pappenheimer Bodies Not Reportable Sickle Cells 1+ Target Cells Not Reportable Tear Drop Cells Not Reportable Ovalocytes Not Reportable Helmet Cells Not Reportable [place] Bodies Not Reportable [place] Rings Not Reportable Peridot Cells Not Reportable Bite Cells Not Reportable Crenated Cell Not Reportable Elliptocytes Not Reportable Acanthocytes (Spur) Not Reportable Rouleaux Not Reportable Hemoglobin C Crystals Not Reportable Schistocytes Few Malaria parasites Not Reportable Percent Retic 14.58 H Alexis Bodies Not Reportable Hem Pathologist Commnt No Sodium 138 Potassium 4.3 Chloride 103.2 Carbon Dioxide 25 Anion Gap 14 BUN 21 H Creatinine 1.3 H Estimated GFR 56 BUN/Creatinine Ratio 16 Glucose 90 Calcium 8.8 Total Bilirubin 1.10 AST 79 H ALT 88 H Alkaline Phosphatase 232 H Total Protein 6.6 Albumin 3.7 L Albumin/Globulin Ratio 1.3 - Medical Decision Making Sickle cell pain crisis without sepsis or severe vaso-occlusive disease with exception of severe pain. Patient was treated with IV analgesia and IV hydration. Her symptoms improved. She was discharged home to follow-up with her primary personal driver Dr. Keane. Critical care attestation.: If time is entered above; I have spent that time in minutes in the direct care of this critically ill patient, excluding procedure time. ED Disposition Clinical Impression: Anemia, sickle cell with crisis, Sickle cell pain crisis Disposition: DC-01 TO HOME OR SELFCARE Is pt being admited?: No Does the pt Need Aspirin: No Condition: Stable Referrals: PATTIE KEANE MD [Primary Care Provider] - 3-5 Days
== END 2020-12-18 20:23 | disposition home or self-care (01) ==
LOC: ED 15:15
DX: D57.00 Hb-SS disease with crisis, unspecified (principal); D64.9 Anemia, unspecified; I10 Essential (primary) hypertension; M19.90 Unspecified osteoarthritis, unspecified site; J45.909 Unspecified asthma, uncomplicated; Z88.6 Allergy status to analgesic agent; Z88.8 Allergy status to other drugs, medicaments and biological substances; Z79.899 Other long term (current) drug therapy; Z98.890 Other specified postprocedural states; Z90.49 Acquired absence of other specified parts of digestive tract
CPT/HCPCS: 36415; 80053; 85007; 85025; 85045; 96361; 96374; 96375; 96376; 99283; J1170; J1200; J1642; J2405

== ENCOUNTER 2020-12-23 16:16 | Emergency (ER) | payer MEDICAID ==
--- NOTE | 2020-12-23 17:13 | Emergency Department Report ---
Blank Doc - Documentation Documentation: 35-year-old female that presents with sickle cell crisis. 1- This initial assessment/diagnostic orders/clinical plan/ treatment(s) is/are subject to change based on pt's health status, clinical progression and re- assessment by fellow clinical providers in the ED. Further treatment and workup at subsequent clinical provers discretion. Patient/guardians urged not to elope from ED as their condition may be serious if not clinically assessed and managed. 2-labs
[2020-12-23] MEDS ORDERED: ONDANSETRON 4 MG/2 ML INJ IV ONE (17:49)
[2020-12-23] MEDS ORDERED: HYDROmorphone 1 MG/1 ML INJ IV ONE ×2 (17:49→18:48)
[2020-12-23] MEDS ORDERED: diphenhydrAMINE 50 MG/ML VIAL IV ONE (17:49)
[2020-12-23] MEDS ORDERED: D5W/0.2% NACL 1,000 ML IV SCH (18:00)
--- NOTE | 2020-12-23 19:08 | Emergency Department Report ---
ED General Adult HPI - General Chief complaint: Sickle Cell Crisis Stated complaint: SICKLE CELL PAIN Time Seen by Provider: 12/23/20 17:02 Source: patient Mode of arrival: Ambulatory Limitations: No Limitations - History of Present Illness Initial comments: Chief complaint: Pain in my back and legs HPI: This is a 35-year-old female history of hypertension hemoglobin SS disease, asthma who presents with pain in back and legs. She attributes pain due to change in weather. Weather has been cold and rainy. She denies fever, chest pain, shortness of breath, headache. She denies abdominal pain. I recently saw Ms. Mendoza 5 days ago in the emergency department for similar symptoms. -: Gradual, days(s) (2 days) Location: back, left, right, upper extremity, lower extremity Severity scale (0 -10): 10 Quality: aching Consistency: constant Improves with: none Worsens with: other (weather) - Related Data Home Medications Medication Instructions Recorded Confirmed Last Taken Methadone [Dolophine] 20 mg PO BID 03/19/19 03/22/20 08/18/19 Percocet 5/325 mg 10 mg PO PRN 01/29/20 03/22/20 01/28/20 Previous Rx's Medication Instructions Recorded Last Taken Type Folic Acid [Folvite] 1 mg PO DAILY #30 tablet 08/23/19 01/29/20 Rx Hydroxyurea 500 mg PO DAILY #30 cap 08/23/19 Unknown Rx amLODIPine 10 mg PO QDAY #30 tablet 08/23/19 01/28/20 Rx cloNIDine [Catapres] 0.2 mg PO BID #60 08/23/19 01/28/20 Rx lisinopriL [Zestril TAB] 40 mg PO QDAY #30 tablet 08/23/19 01/28/20 Rx Albuterol Mdi (or & Nicu Only) 2 puff IH QID PRN #1 inhalation 01/13/20 01/29/20 11:27 Rx [ProAir HFA Inhaler] HYDROcodone/APAP 5-325 [[place] 1 - 2 each PO Q6HR PRN #10 tablet 04/05/20 Unknown Rx 5/325] HYDROcodone/APAP 5-325 [[place] 1 - 2 each PO Q6HR PRN #14 tablet 09/09/20 Unknown Rx 5/325] predniSONE [Deltasone] 3 tab PO QDAY 3 Days #9 tab 10/14/20 Unknown Rx HYDROcodone/APAP 5-325 [[place] 1 - 2 each PO Q6HR PRN #14 tablet 11/12/20 Unknown Rx 5/325] Ibuprofen [Motrin 800 MG tab] 800 mg PO Q8HR PRN #20 tablet 11/12/20 Unknown Rx HYDROcodone/APAP 5-325 [[place] 1 - 2 each PO Q6HR PRN #14 tablet 11/22/20 Unknown Rx 5/325] Allergies Allergy/AdvReac Type Severity Reaction Status Date / Time morphine Allergy Shortness Verified 12/23/20 18:05 of Breath vancomycin Allergy Unknown Verified 12/23/20 18:05 ED Review of Systems ROS: Stated complaint: SICKLE CELL PAIN Other details as noted in HPI Comment: All other systems reviewed and negative Constitutional: denies: fever, malaise Respiratory: denies: cough, shortness of breath Gastrointestinal: denies: abdominal pain, nausea, vomiting Musculoskeletal: myalgia ED Past Medical Hx - Past Medical History Previous Medical History?: Yes Hx Hypertension: Yes Hx Sickle Cell Disease: Yes Hx Arthritis: Yes Hx Asthma: Yes Additional medical history: ANEMIA, multiple port infections - Surgical History Past Surgical History?: Yes Hx Cholecystectomy: Yes Additional Surgical History: , port removed June 2014. PICC line left upper arm (11/19/2014). . - Social History Smoking Status: Never Smoker Substance Use Type: None - Medications Home Medications: Home Medications Medication Instructions Recorded Confirmed Last Taken Type Methadone [Dolophine] 20 mg PO BID 03/19/19 03/22/20 08/18/19 History Folic Acid [Folvite] 1 mg PO DAILY #30 tablet 08/23/19 03/22/20 01/29/20 Rx Hydroxyurea 500 mg PO DAILY #30 cap 08/23/19 03/22/20 Unknown Rx amLODIPine 10 mg PO QDAY #30 tablet 08/23/19 03/22/20 01/28/20 Rx cloNIDine [Catapres] 0.2 mg PO BID #60 08/23/19 03/22/20 01/28/20 Rx lisinopriL [Zestril TAB] 40 mg PO QDAY #30 tablet 08/23/19 03/22/20 01/28/20 Rx Albuterol Mdi (or & Nicu Only) 2 puff IH QID PRN #1 inhalation 01/13/20 03/22/20 01/29/20 11:27 Rx [ProAir HFA Inhaler] Percocet 5/325 mg 10 mg PO PRN 01/29/20 03/22/20 01/28/20 History HYDROcodone/APAP 5-325 [[place] 1 - 2 each PO Q6HR PRN #10 tablet 04/05/20 Unknown Rx 5/325] HYDROcodone/APAP 5-325 [[place] 1 - 2 each PO Q6HR PRN #14 tablet 09/09/20 Unknown Rx 5/325] predniSONE [Deltasone] 3 tab PO QDAY 3 Days #9 tab 10/14/20 Unknown Rx HYDROcodone/APAP 5-325 [[place] 1 - 2 each PO Q6HR PRN #14 tablet 11/12/20 Unknown Rx 5/325] Ibuprofen [Motrin 800 MG tab] 800 mg PO Q8HR PRN #20 tablet 11/12/20 Unknown Rx HYDROcodone/APAP 5-325 [[place] 1 - 2 each PO Q6HR PRN #14 tablet 11/22/20 Unknown Rx 5/325] ED Physical Exam - General Limitations: No Limitations General appearance: alert, in no apparent distress - Head Head exam: Present: atraumatic, normocephalic - Eye Eye exam: Present: normal appearance - ENT ENT exam: Present: mucous membranes moist - Neck Neck exam: Present: normal inspection, full ROM - Respiratory Respiratory exam: Present: normal lung sounds bilaterally. Absent: respiratory distress, wheezes, rales, rhonchi - Cardiovascular Cardiovascular Exam: Present: regular rate, normal rhythm, normal heart sounds. Absent: systolic murmur, diastolic murmur, rubs, gallop - GI/Abdominal GI/Abdominal exam: Present: soft, normal bowel sounds. Absent: distended, tenderness, guarding, rebound - Extremities Exam Extremities exam: Present: normal inspection - Neurological Exam Neurological exam: Present: alert, oriented X3 - Psychiatric Psychiatric exam: Present: normal affect, normal mood - Skin Skin exam: Present: warm, dry, intact, normal color. Absent: rash ED Course Vital Signs 12/23/20 12/23/20 12/23/20 16:53 16:54 17:49 Temperature 98.5 F Pulse Rate 80 86 Respiratory 20 14 Rate Blood Pressure 186/100 Blood Pressure 209/111 [Right] O2 Sat by Pulse 99 98 Oximetry 12/23/20 19:16 Temperature Pulse Rate 75 Respiratory 18 Rate Blood Pressure Blood Pressure 166/79 [Right] O2 Sat by Pulse 96 Oximetry ED Medical Decision Making - Medical Decision Making 1. Sickle cell disease pain crisis without evidence of infection or thrombotic complication. I did not feel that repeat CBC reticulocyte count were necessary considering patient was evaluated several times within the last 2 months without significant anemia patient received IV fluid therapy and IV analgesia. She has access to doctor of pharmacy Dr. Torres. She is discharged home. 2. Hypertensive urgency: Blood pressure improved with pain control. Antihypertensive medication not necessary. Vital Signs - 24 hr 12/23/20 12/23/20 12/23/20 16:53 16:54 17:49 Temperature 98.5 F Pulse Rate 80 86 Respiratory 20 14 Rate Blood Pressure 186/100 Blood Pressure 209/111 [Right] O2 Sat by Pulse 99 98 Oximetry 12/23/20 19:16 Temperature Pulse Rate 75 Respiratory 18 Rate Blood Pressure Blood Pressure 166/79 [Right] O2 Sat by Pulse 96 Oximetry Critical care attestation.: If time is entered above; I have spent that time in minutes in the direct care of this critically ill patient, excluding procedure time. ED Disposition Clinical Impression: Anemia, sickle cell with crisis, Hypertensive urgency Disposition: DC-01 TO HOME OR SELFCARE Is pt being admited?: No Does the pt Need Aspirin: No Condition: Stable Referrals: PRIMARY CARE, [Primary Care Provider] - 3-5 Days
[2020-12-23 19:17] VITALS: BP 166/79
[2020-12-23] MEDS ORDERED: HYDROmorphone 2 MG/1 ML INJ IV ONE (19:30)
== END 2020-12-23 20:25 | disposition home or self-care (01) ==
LOC: ED 16:16
DX: D57.00 Hb-SS disease with crisis, unspecified (principal); I16.0 Hypertensive urgency; M19.91 Primary osteoarthritis, unspecified site; J45.909 Unspecified asthma, uncomplicated; Z90.49 Acquired absence of other specified parts of digestive tract; Z98.890 Other specified postprocedural states; Z79.899 Other long term (current) drug therapy; Z88.8 Allergy status to other drugs, medicaments and biological substances
CPT/HCPCS: 96361; 96374; 96375; 96376; 99282; J1170; J1200; J1642; J2405

== ENCOUNTER 2020-12-25 14:38 | Emergency (ER) | payer MEDICAID ==
[2020-12-25] MEDS ORDERED: KETOROLAC 30 MG/1 ML INJ IV ONE (15:05)
[2020-12-25] MEDS ORDERED: diphenhydrAMINE 50 MG/ML VIAL IV ONE (15:05)
[2020-12-25] MEDS ORDERED: ONDANSETRON 4 MG/2 ML INJ IV ONE (15:05)
[2020-12-25] MEDS ORDERED: HYDROmorphone 1 MG/1 ML INJ IV ONE ×3 (15:05→16:48)
--- NOTE | 2020-12-25 15:08 | Emergency Department Report ---
HPI - General Chief Complaint: Sickle Cell Crisis Time Seen by Provider: 12/25/20 15:02 - HPI HPI: Room 43 The patient is a 35-year-old female present with a chief complaint of sickle cell pain crisis. Patient states since yesterday she has had pain in her lower back and bilateral lower extremities consistent with previous bouts of sickle cell pain crises. Patient denies history of fever. Patient gives her pain a score of 10/10 ED Past Medical Hx - Past Medical History Hx Hypertension: Yes Hx Sickle Cell Disease: Yes Hx Arthritis: Yes Hx Asthma: Yes Additional medical history: ANEMIA, multiple port infections - Surgical History Hx Cholecystectomy: Yes Additional Surgical History: , port removed June 2014. PICC line left upper arm (11/19/2014). . - Family History Family history: no significant - Social History Smoking Status: Never Smoker Substance Use Type: None - Medications Home Medications: Home Medications Medication Instructions Recorded Confirmed Last Taken Type Methadone [Dolophine] 20 mg PO BID 03/19/19 03/22/20 08/18/19 History Folic Acid [Folvite] 1 mg PO DAILY #30 tablet 08/23/19 03/22/20 01/29/20 Rx Hydroxyurea 500 mg PO DAILY #30 cap 08/23/19 03/22/20 Unknown Rx amLODIPine 10 mg PO QDAY #30 tablet 08/23/19 03/22/20 01/28/20 Rx cloNIDine [Catapres] 0.2 mg PO BID #60 08/23/19 03/22/20 01/28/20 Rx lisinopriL [Zestril TAB] 40 mg PO QDAY #30 tablet 08/23/19 03/22/20 01/28/20 Rx Albuterol Mdi (or & Nicu Only) 2 puff IH QID PRN #1 inhalation 01/13/20 03/22/20 01/29/20 11:27 Rx [ProAir HFA Inhaler] Percocet 5/325 mg 10 mg PO PRN 01/29/20 03/22/20 01/28/20 History HYDROcodone/APAP 5-325 [[place] 1 - 2 each PO Q6HR PRN #10 tablet 04/05/20 Unknown Rx 5/325] HYDROcodone/APAP 5-325 [[place] 1 - 2 each PO Q6HR PRN #14 tablet 09/09/20 Unknown Rx 5/325] predniSONE [Deltasone] 3 tab PO QDAY 3 Days #9 tab 10/14/20 Unknown Rx HYDROcodone/APAP 5-325 [[place] 1 - 2 each PO Q6HR PRN #14 tablet 11/12/20 Unknown Rx 5/325] Ibuprofen [Motrin 800 MG tab] 800 mg PO Q8HR PRN #20 tablet 11/12/20 Unknown Rx HYDROcodone/APAP 5-325 [[place] 1 - 2 each PO Q6HR PRN #14 tablet 11/22/20 Unkno wn Rx 5/325] HYDROcodone/APAP 5-325 [[place] 1 - 2 each PO Q6HR PRN #14 tablet 12/25/20 Unkno wn Rx 5/325] Ibuprofen [Motrin 800 MG tab] 800 mg PO Q8HR PRN #20 tablet 12/25/20 Unknown Rx ED Review of Systems ROS: Stated complaint: SICKLE CELL PAIN Other details as noted in HPI Constitutional: denies: fever Eyes: denies: eye pain ENT: denies: throat pain Respiratory: no symptoms reported Cardiovascular: denies: chest pain Endocrine: no symptoms reported Gastrointestinal: denies: abdominal pain Genitourinary: denies: dysuria Musculoskeletal: back pain Neurological: denies: headache Hematological/Lymphatic: other (Sickle cell pain) Physical Exam - Physical Exam Physical Exam: GENERAL: The patient is well-developed well-nourished female lying on stretcher appearing to be in mild discomfort. [] HEENT: Normocephalic. Atraumatic. Extraocular motions are intact. Patient has moist mucous membranes. NECK: Supple. Trachea midline CHEST/LUNGS: Clear to auscultation. There is no respiratory distress noted. HEART/CARDIOVASCULAR: Regular. There is no tachycardia. There is no gallop rub or murmur. ABDOMEN: Abdomen is soft, nontender. Patient has normal bowel sounds. There is no abdominal distention. SKIN: There is no rash. There is no edema. There is no diaphoresis. NEURO: The patient is awake, alert, and oriented. The patient is cooperative. The patient has no focal neurologic deficits. The patient has normal speech MUSCULOSKELETAL: There is no evidence of acute injury. ED Medical Decision Making - Lab Data Result diagrams: 12/25/20 15:29 Laboratory Tests 12/25/20 15:29 WBC 17.1 H RBC 2.88 L Hgb 9.0 L Hct 26.6 L MCV 92 MCH 31 MCHC 34 RDW 16.8 H Lymph % (Auto) 20.3 [place] % (Auto) 8.1 H Eos % (Auto) 5.2 H Baso % (Auto) 0.9 Lymph # (Auto) 3.5 [place] # (Auto) 1.4 H Eos # (Auto) 0.9 H Baso # (Auto) 0.2 H Seg Neutrophils % 65.5 Seg Neutrophils # 11.2 H Percent Retic 20.6 H - Differential Diagnosis Sickle cell pain crisis Critical care attestation.: If time is entered above; I have spent that time in minutes in the direct care of this critically ill patient, excluding procedure time. ED Disposition Clinical Impression: Sickle cell pain crisis Disposition: TO HOME OR SELFCARE Is pt being admited?: No Does the pt Need Aspirin: No Condition: Stable Additional Instructions: Return to the emergency department should you develop worsening symptoms, inability to tolerate food or liquids, high fever or any other concerns Prescriptions: Ibuprofen [Motrin 800 MG tab] 800 mg PO Q8HR PRN #20 tablet PRN Reason: Pain , Severe (7-10) HYDROcodone/APAP 5-325 [[place] 5/325] 1 - 2 each PO Q6HR PRN #14 tablet PRN Reason: Pain Referrals: PRIMARY CARE, [Primary Care Provider] - 3-5 Days Time of Disposition: 17:41
[2020-12-25] MEDS ORDERED: D5W/0.2% NACL 1,000 ML IV SCH (16:00)
[2020-12-25 16:02] LABS: Basophils # (Auto) 0.2 K/mm3 (0.0-0.1); Eosinophils # (Auto) 0.9 K/mm3 (0.0-0.4); Eosinophils % (Auto) 5.2 % (0.0-4.3); Monocytes # (Auto) 1.4 K/mm3 (0.0-0.8); Monocytes % (Auto) 8.1 % (0.0-7.3)
[2020-12-25 17:23] LABS: Red Blood Count 2.88 M/mm3 (3.65-5.03)
[2020-12-25 17:24] LABS: Hematocrit 26.6 % (30.3-42.9); Mean Corpuscular HGB Conc 34 % (30-34); Mean Corpuscular Volume 92 fl (79-97); Red Cell Distribution Width 16.8 % (13.2-15.2)
[2020-12-25 17:25] LABS: Basophils % (Auto) 0.9 % (0.0-1.8); Lymphocytes # (Auto) 3.5 K/mm3 (1.2-5.4); Lymphocytes % (Auto) 20.3 % (13.4-35.0)
[2020-12-25 18:03] VITALS: BP 175/88
[2020-12-25 18:07] LABS: Platelet Count 461 K/mm3 (140-440)
== END 2020-12-25 18:04 | disposition home or self-care (01) ==
LOC: ED 14:38
DX: D57.00 Hb-SS disease with crisis, unspecified (principal); I10 Essential (primary) hypertension; M19.91 Primary osteoarthritis, unspecified site; J45.909 Unspecified asthma, uncomplicated; Z90.49 Acquired absence of other specified parts of digestive tract; Z98.890 Other specified postprocedural states; Z79.1 Long term (current) use of non-steroidal anti-inflammatories (NSAID); Z79.899 Other long term (current) drug therapy; Z88.8 Allergy status to other drugs, medicaments and biological substances
CPT/HCPCS: 36415; 85025; 85045; 96374; 96375; 96376; 99283; J1170; J1200; J1642; J1885; J2405

== ENCOUNTER 2020-12-30 15:25 | Emergency (ER) | payer MEDICAID ==
[2020-12-30] MEDS ORDERED: diphenhydrAMINE 50 MG/ML VIAL IV ONE ×2 (16:09→16:49)
[2020-12-30] MEDS ORDERED: KETOROLAC 30 MG/1 ML INJ IV ONE (16:09)
[2020-12-30] MEDS ORDERED: ONDANSETRON 4 MG/2 ML INJ IV ONE (16:09)
[2020-12-30] MEDS ORDERED: HYDROmorphone 2 MG/1 ML INJ IV ONE ×2 (16:09→16:49)
[2020-12-30 16:26] LABS: Hemoglobin 8.6 gm/dl (10.1-14.3); Mean Corpuscular HGB Conc 33 % (30-34); Mean Corpuscular Volume 95 fl (79-97); Platelet Count 416 K/mm3 (140-440); Red Blood Count 2.74 M/mm3 (3.65-5.03); Red Cell Distribution Width 17.9 % (13.2-15.2)
[2020-12-30] MEDS ORDERED: HYDROmorphone 1 MG/1 ML INJ IV ONE ×2 (16:51→17:49)
[2020-12-30] MEDS ORDERED: D5W/0.2% NACL 1,000 ML IV SCH (17:00)
[2020-12-30 17:30] LABS: Total Cells Counted 100
--- NOTE | 2020-12-30 17:30 | Emergency Department Report ---
ED General Adult HPI - General Chief complaint: Sickle Cell Crisis Stated complaint: SICKLE CELL PAIN Time Seen by Provider: 12/30/20 15:58 Source: patient Mode of arrival: Ambulatory Limitations: No Limitations - History of Present Illness Initial comments: 35-year-old female with a past medical history of sickle cell disease presents to the hospital complaints of sickle cell crisis since yesterday. Patient complains of mild lower back pain and bilateral leg pain that radiates to 10/10 in intensity. Pain is not alleviated by her home Percocet. Patient denies pain, focal weakness, focal numbness, chest pain, shortness of breath, or fever. Pain feels typical to previous sickle cell crisis in the past. [employer]: Dr. Torres Severity scale (0 -10): 8 - Related Data Home Medications Medication Instructions Recorded Confirmed Last Taken Methadone [Dolophine] 20 mg PO BID 03/19/19 03/22/20 08/18/19 Percocet 5/325 mg 10 mg PO PRN 01/29/20 03/22/20 01/28/20 Previous Rx's Medication Instructions Recorded Last Taken Type Folic Acid [Folvite] 1 mg PO DAILY #30 tablet 08/23/19 01/29/20 Rx Hydroxyurea 500 mg PO DAILY #30 cap 08/23/19 Unknown Rx amLODIPine 10 mg PO QDAY #30 tablet 08/23/19 01/28/20 Rx cloNIDine [Catapres] 0.2 mg PO BID #60 08/23/19 01/28/20 Rx lisinopriL [Zestril TAB] 40 mg PO QDAY #30 tablet 08/23/19 01/28/20 Rx Albuterol Mdi (or & Nicu Only) 2 puff IH QID PRN #1 inhalation 01/13/20 01/29/20 11:27 Rx [ProAir HFA Inhaler] HYDROcodone/APAP 5-325 [[place] 1 - 2 each PO Q6HR PRN #10 tablet 04/05/20 Unknown Rx 5/325] HYDROcodone/APAP 5-325 [[place] 1 - 2 each PO Q6HR PRN #14 tablet 09/09/20 Unknown Rx 5/325] predniSONE [Deltasone] 3 tab PO QDAY 3 Days #9 tab 10/14/20 Unknown Rx HYDROcodone/APAP 5-325 [[place] 1 - 2 each PO Q6HR PRN #14 tablet 11/12/20 Unknown Rx 5/325] Ibuprofen [Motrin 800 MG tab] 800 mg PO Q8HR PRN #20 tablet 11/12/20 Unknown Rx HYDROcodone/APAP 5-325 [[place] 1 - 2 each PO Q6HR PRN #14 tablet 11/22/20 Unknown Rx 5/325] HYDROcodone/APAP 5-325 [[place] 1 - 2 each PO Q6HR PRN #14 tablet 12/25/20 Unknown Rx 5/325] Ibuprofen [Motrin 800 MG tab] 800 mg PO Q8HR PRN #20 tablet 12/25/20 Unknown Rx Allergies Allergy/AdvReac Type Severity Reaction Status Date / Time morphine Allergy Shortness Verified 12/25/20 14:41 of Breath vancomycin Allergy Unknown Verified 12/25/20 14:41 ED Review of Systems ROS: Stated complaint: SICKLE CELL PAIN Other details as noted in HPI Comment: All other systems reviewed and negative ED Past Medical Hx - Past Medical History Hx Hypertension: Yes Hx Sickle Cell Disease: Yes Hx Arthritis: Yes Hx Asthma: Yes Additional medical history: ANEMIA, multiple port infections - Surgical History Hx Cholecystectomy: Yes Additional Surgical History: , port removed June 2014. PICC line left upper arm (11/19/2014). . - Social History Smoking Status: Never Smoker Substance Use Type: None - Medications Home Medications: Home Medications Medication Instructions Recorded Confirmed Last Taken Type Methadone [Dolophine] 20 mg PO BID 03/19/19 03/22/20 08/18/19 History Folic Acid [Folvite] 1 mg PO DAILY #30 tablet 08/23/19 03/22/20 01/29/20 Rx Hydroxyurea 500 mg PO DAILY #30 cap 08/23/19 03/22/20 Unknown Rx amLODIPine 10 mg PO QDAY #30 tablet 08/23/19 03/22/20 01/28/20 Rx cloNIDine [Catapres] 0.2 mg PO BID #60 08/23/19 03/22/20 01/28/20 Rx lisinopriL [Zestril TAB] 40 mg PO QDAY #30 tablet 08/23/19 03/22/20 01/28/20 Rx Albuterol Mdi (or & Nicu Only) 2 puff IH QID PRN #1 inhalation 01/13/20 03/22/2020 11:27 Rx [ProAir HFA Inhaler] Percocet 5/325 mg 10 mg PO PRN 01/29/20 03/22/20 01/28/20 History HYDROcodone/APAP 5-325 [[place] 1 - 2 each PO Q6HR PRN #10 tablet 04/05/20 Unknown Rx 5/325] HYDROcodone/APAP 5-325 [[place] 1 - 2 each PO Q6HR PRN #14 tablet 09/09/20 Unknown Rx 5/325] predniSONE [Deltasone] 3 tab PO QDAY 3 Days #9 tab 10/14/20 Unknown Rx HYDROcodone/APAP 5-325 [[place] 1 - 2 each PO Q6HR PRN #14 tablet 11/12/20 Unknown Rx 5/325] Ibuprofen [Motrin 800 MG tab] 800 mg PO Q8HR PRN #20 tablet 11/12/20 Unknown Rx HYDROcodone/APAP 5-325 [[place] 1 - 2 each PO Q6HR PRN #14 tablet 11/22/20 Unknown Rx 5/325] HYDROcodone/APAP 5-325 [[place] 1 - 2 each PO Q6HR PRN #14 tablet 12/25/20 Unknown Rx 5/325] Ibuprofen [Motrin 800 MG tab] 800 mg PO Q8HR PRN #20 tablet 12/25/20 Unknown Rx ED Physical Exam - General Limitations: No Limitations - Other Other exam information: General: No acute distress Head: Atraumatic Eyes: normal appearance Neck: Normal appearance, no midline tenderness Chest: Clear to auscultation bilaterally CV: Regular rate and rhythm Abdomen: Soft, normal bowel sounds, nontender, nondistended, no rebound or guarding Back: Normal inspection Extremity: Normal inspection, full range of motion, no leg asymmetry, calf tenderness, or edema Neuro: Alert O x 3, no facial asymmetry, speech clear, no gross motor sensory deficit Psych: Appropriate behavior Skin: No rash ED Course Vital Signs 12/30/20 12/30/20 12/30/20 15:27 15:58 18:32 Temperature 97.8 F Pulse Rate 84 81 Respiratory 18 20 20 Rate Blood Pressure 175/84 Blood Pressure 167/72 [Left] O2 Sat by Pulse 98 98 97 Oximetry ED Medical Decision Making - Lab Data Result diagrams: 12/30/20 16:00 Lab Results 12/30/20 Range/Units 16:00 WBC 16.0 H (4.5-11.0) K/mm3 RBC 2.74 L (3.65-5.03) M/mm3 Hgb 8.6 L (10.1-14.3) gm/dl Hct 26.0 L (30.3-42.9) % MCV 95 (79-97) fl MCH 32 (28-32) pg MCHC 33 (30-34) % RDW 17.9 H (13.2-15.2) % Plt Count 416 (140-440) K/mm3 Lymph # (Auto) Solution Spec Add Manual Diff Complete Total Counted 100 Seg Neuts % (Manual) 55.0 (40.0-70.0) % Lymphocytes % (Manual) 29.0 (13.4-35.0) % Monocytes % (Manual) 10.0 H (0.0-7.3) % Eosinophils % (Manual) 5.0 H (0.0-4.3) % Basophils % (Manual) 1.0 (0.0-1.8) % Nucleated RBC % Not Reportable Seg Neutrophils # Man 8.8 H (1.8-7.7) K/mm3 Band Neutrophils # 0.0 K/mm3 Lymphocytes # (Manual) 4.6 (1.2-5.4) K/mm3 Abs React Lymphs (Man) 0.0 K/mm3 Monocytes # (Manual) 1.6 H (0.0-0.8) K/mm3 Eosinophils # (Manual) 0.8 H (0.0-0.4) K/mm3 Basophils # (Manual) 0.2 H (0.0-0.1) K/mm3 Metamyelocytes # 0.0 K/mm3 Myelocytes # 0.0 K/mm3 Promyelocytes # 0.0 K/mm3 Blast Cells # 0.0 K/mm3 WBC Morphology Not Reportable Hypersegmented Neuts Not Reportable Hyposegmented Neuts Not Reportable Hypogranular Neuts Not Reportable Smudge Cells Not Reportable Toxic Granulation Not Reportable Toxic Vacuolation Not Reportable Dohle Bodies Not Reportable Pelger-Huet Anomaly Not Reportable Ariadne Rods Not Reportable Platelet Estimate Not Reportable Clumped Platelets Not Reportable Plt Clumps, EDTA Not Reportable Large Platelets Not Reportable Giant Platelets Not Reportable Platelet Satelliting Not Reportable Plt Morphology Comment Not Reportable RBC Morphology Not Reportable Dimorphic RBCs Not Reportable Polychromasia Not Reportable Hypochromasia Few Poikilocytosis Not Reportable Anisocytosis Few Microcytosis Rare Macrocytosis Not Reportable Spherocytes Not Reportable Pappenheimer Bodies Not Reportable Sickle Cells Few Target Cells Not Reportable Tear Drop Cells Not Reportable Ovalocytes Not Reportable Helmet Cells Not Reportable Walters-Bly Bodies Not Reportable [place] Rings Not Reportable Betsy Cells Not Reportable Bite Cells Not Reportable Crenated Cell Not Reportable Elliptocytes Not Reportable Acanthocytes (Spur) Not Reportable Rouleaux Not Reportable Hemoglobin C Crystals Not Reportable Schistocytes Not Reportable Malaria parasites Not Reportable Percent Retic 9.95 H (0.78-2.58) % Alexis Bodies Not Reportable Hem Pathologist Commnt No - Medical Decision Making Patient presents with sickle cell crisis and feels better after third dose of Dilaudid 2 mg. I was unable to speak to patient prior to leaving department because she had to leave and did not have time to wait for my reassessment while I was attending to an emergency. Nurse reported patient felt better with 4/10 pain with normal vital signs. Patient was discharged and will follow up with her front desk receptionist Critical Care Time: No Critical care attestation.: If time is entered above; I have spent that time in minutes in the direct care of this critically ill patient, excluding procedure time. ED Disposition Clinical Impression: Anemia, sickle cell with crisis Disposition: DC-01 TO HOME OR SELFCARE Is pt being admited?: No Condition: Stable Additional Instructions: Continue current medication as prescribed. Follow-up with your doctor or doctor/clinic provided. Return if symptoms worsen as indicated by your discharge instructions. Time of Disposition: 19:35 (Patient discharged at 18: 33)
[2020-12-30 17:31] LABS: Anisocytosis Few; Hypochromasia Few; Sickle Cells Few
[2020-12-30 18:33] VITALS: BP 167/72
== END 2020-12-30 18:35 | disposition home or self-care (01) ==
LOC: ED 15:25
DX: D57.00 Hb-SS disease with crisis, unspecified (principal); I10 Essential (primary) hypertension; M19.91 Primary osteoarthritis, unspecified site; J45.909 Unspecified asthma, uncomplicated; Z90.49 Acquired absence of other specified parts of digestive tract; Z98.890 Other specified postprocedural states; Z79.899 Other long term (current) drug therapy; Z79.1 Long term (current) use of non-steroidal anti-inflammatories (NSAID); Z88.8 Allergy status to other drugs, medicaments and biological substances
CPT/HCPCS: 36415; 85007; 85025; 85045; 96361; 96374; 96375; 96376; 99283; J1170; J1200; J1642; J1885; J2405

== ENCOUNTER 2021-01-01 17:45 | Emergency (ER) | payer MEDICAID ==
--- NOTE | 2021-01-01 18:16 | Event Note ---
ED Screening Note Date of service: 01/01/21 Time: 18:15 ED Screening Note: Pt c/o sickle cell pain today This initial assessment/diagnostic orders/clinical plan/treatment(s) is/are subject to change based on patients health status, clinical progression and re- assessment by fellow clinical providers in the ED. Further treatment and workup at subsequent clinical providers discretion. Patient/guardian urged not to elope from the ED as their condition may be serious if not clinically assessed and managed. Initial orders include: labs
[2021-01-01] MEDS ORDERED: HYDROmorphone 1 MG/1 ML INJ IV ONE ×3 (19:00→20:50)
[2021-01-01] MEDS ORDERED: D5W/0.2% NACL 1,000 ML IV SCH (19:00)
[2021-01-01] MEDS ORDERED: diphenhydrAMINE 50 MG/ML VIAL IV ONE (19:00)
[2021-01-01] MEDS ORDERED: ONDANSETRON 4 MG/2 ML INJ IV ONE (19:00)
--- NOTE | 2021-01-01 20:55 | Emergency Department Report ---
ED General Adult HPI - General Chief complaint: Sickle Cell Crisis Stated complaint: SICKLE CELL Time Seen by Provider: 01/01/21 17:59 Source: patient Mode of arrival: Ambulatory Limitations: No Limitations - History of Present Illness Initial comments: CC: "My legs hurt." HPI: This is a 35 yo female with hx of Hgb SS disease, asthma who presents with bilateral leg pain since yesterday. Rescue medication did not relieve pain. Pain 8/10. Gradual onset. No trauma. Constant. No fever, cough, shortness of breath, chest pain. She has been stressed. Her daughter requires surgery. She has not followed up with her process coach Dr. Keane. -: Gradual, days(s) (1) Location: left, right, lower extremity Severity scale (0 -10): 8 Consistency: constant Improves with: none Worsens with: none Associated Symptoms: denies other symptoms - Related Data Home Medications Medication Instructions Recorded Confirmed Last Taken Methadone [Dolophine] 20 mg PO BID 03/19/19 03/22/20 08/18/19 Percocet 5/325 mg 10 mg PO PRN 01/29/20 03/22/20 01/28/20 Previous Rx's Medication Instructions Recorded Last Taken Type Folic Acid [Folvite] 1 mg PO DAILY #30 tablet 08/23/19 01/29/20 Rx Hydroxyurea 500 mg PO DAILY #30 cap 08/23/19 Unknown Rx amLODIPine 10 mg PO QDAY #30 tablet 08/23/19 01/28/20 Rx cloNIDine [Catapres] 0.2 mg PO BID #60 08/23/19 01/28/20 Rx lisinopriL [Zestril TAB] 40 mg PO QDAY #30 tablet 08/23/19 01/28/20 Rx Albuterol Mdi (or & Nicu Only) 2 puff IH QID PRN #1 inhalation 01/13/20 01/29/20 11:27 Rx [ProAir HFA Inhaler] HYDROcodone/APAP 5-325 [[place] 1 - 2 each PO Q6HR PRN #10 tablet 04/05/20 Unknown Rx 5/325] HYDROcodone/APAP 5-325 [[place] 1 - 2 each PO Q6HR PRN #14 tablet 09/09/20 Unknown Rx 5/325] predniSONE [Deltasone] 3 tab PO QDAY 3 Days #9 tab 10/14/20 Unknown Rx HYDROcodone/APAP 5-325 [[place] 1 - 2 each PO Q6HR PRN #14 tablet 11/12/20 Unknown Rx 5/325] Ibuprofen [Motrin 800 MG tab] 800 mg PO Q8HR PRN #20 tablet 11/12/20 Unknown Rx HYDROcodone/APAP 5-325 [[place] 1 - 2 each PO Q6HR PRN #14 tablet 11/22/20 Unknown Rx 5/325] HYDROcodone/APAP 5-325 [[place] 1 - 2 each PO Q6HR PRN #14 tablet 12/25/20 Unknown Rx 5/325] Ibuprofen [Motrin 800 MG tab] 800 mg PO Q8HR PRN #20 tablet 12/25/20 Unknown Rx Allergies Allergy/AdvReac Type Severity Reaction Status Date / Time morphine Allergy Shortness Verified 12/25/20 14:41 of Breath vancomycin Allergy Unknown Verified 12/25/20 14:41 ED Review of Systems ROS: Stated complaint: SICKLE CELL Other details as noted in HPI Comment: All other systems reviewed and negative Constitutional: denies: fever, malaise Respiratory: denies: cough, shortness of breath Gastrointestinal: denies: abdominal pain, nausea, vomiting Musculoskeletal: myalgia. denies: arthralgia Skin: lesions. denies: rash ED Past Medical Hx - Past Medical History Previous Medical History?: Yes Hx Hypertension: Yes Hx Sickle Cell Disease: Yes Hx Arthritis: Yes Hx Asthma: Yes Additional medical history: ANEMIA, multiple port infections - Surgical History Past Surgical History?: Yes Hx Cholecystectomy: Yes Additional Surgical History: , port removed June 2014. PICC line left upper arm (11/19/2014). . - Social History Smoking Status: Never Smoker Substance Use Type: None - Medications Home Medications: Home Medications Medication Instructions Recorded Confirmed Last Taken Type Methadone [Dolophine] 20 mg PO BID 03/19/19 03/22/20 08/18/19 History Folic Acid [Folvite] 1 mg PO DAILY #30 tablet 08/23/19 03/22/20 01/29/20 Rx Hydroxyurea 500 mg PO DAILY #30 cap 08/23/19 03/22/20 Unknown Rx amLODIPine 10 mg PO QDAY #30 tablet 08/23/19 03/22/20 01/28/20 Rx cloNIDine [Catapres] 0.2 mg PO BID #60 08/23/19 03/22/20 01/28/20 Rx lisinopriL [Zestril TAB] 40 mg PO QDAY #30 tablet 08/23/19 03/22/20 01/28/20 Rx Albuterol Mdi (or & Nicu Only) 2 puff IH QID PRN #1 inhalation 01/13/20 03/22/20 01/29/20 11:27 Rx [ProAir HFA Inhaler] Percocet 5/325 mg 10 mg PO PRN 01/29/20 03/22/20 01/28/20 History HYDROcodone/APAP 5-325 [[place] 1 - 2 each PO Q6HR PRN #10 tablet 04/05/20 Unknown Rx 5/325] HYDROcodone/APAP 5-325 [[place] 1 - 2 each PO Q6HR PRN #14 tablet 09/09/20 Unknown Rx 5/325] predniSONE [Deltasone] 3 tab PO QDAY 3 Days #9 tab 10/14/20 Unknown Rx HYDROcodone/APAP 5-325 [[place] 1 - 2 each PO Q6HR PRN #14 tablet 11/12/20 Unknown Rx 5/325] Ibuprofen [Motrin 800 MG tab] 800 mg PO Q8HR PRN #20 tablet 11/12/20 Unknown Rx HYDROcodone/APAP 5-325 [[place] 1 - 2 each PO Q6HR PRN #14 tablet 11/22/20 Unknown Rx 5/325] HYDROcodone/APAP 5-325 [[place] 1 - 2 each PO Q6HR PRN #14 tablet 12/25/20 Unknown Rx 5/325] Ibuprofen [Motrin 800 MG tab] 800 mg PO Q8HR PRN #20 tablet 12/25/20 Unknown Rx ED Physical Exam - General Limitations: No Limitations General appearance: alert, in no apparent distress, other (ambulatory without difficulty, nontoxic appearing) - Head Head exam: Present: atraumatic, normocephalic - Eye Eye exam: Present: normal appearance - ENT ENT exam: Present: mucous membranes moist - Neck Neck exam: Present: normal inspection, full ROM - Respiratory Respiratory exam: Present: normal lung sounds bilaterally. Absent: respiratory distress, wheezes, rales, rhonchi - Cardiovascular Cardiovascular Exam: Present: regular rate, normal rhythm, normal heart sounds, other (left chest: port a cath site no erythema or fluctuance). Absent: systolic murmur, diastolic murmur, rubs, gallop - GI/Abdominal GI/Abdominal exam: Present: soft, normal bowel sounds. Absent: distended, tenderness, guarding, rebound - Extremities Exam Extremities exam: Present: normal inspection - Neurological Exam Neurological exam: Present: alert, oriented X3 - Psychiatric Psychiatric exam: Present: normal affect, normal mood - Skin Skin exam: Present: warm, dry, intact, normal color. Absent: rash ED Course Vital Signs 01/01/21 18:14 Temperature 98.5 F Pulse Rate 84 Respiratory 20 Rate Blood Pressure 152/86 O2 Sat by Pulse 98 Oximetry ED Medical Decision Making - Medical Decision Making Ms. Mendoza is a 35 yo female with hx of Hgb SS disease. This is my third encounter with Ms. Mendoza. CBC over previous 6 ED encounters this month of December has revealed stable H&H. I did not obtain labs today. She does not exhibit signs of sepsis or severe vaso-occlusive complications. Unfortunately, Ms. Mendoza has both frequent vaso-occlusive pain crises and overall chronic pain. SHe receive mild relief with IV opioids and IVF. She is discharged home. Critical care attestation.: If time is entered above; I have spent that time in minutes in the direct care of this critically ill patient, excluding procedure time. ED Disposition Clinical Impression: Sickle cell pain crisis Disposition: DC-01 TO HOME OR SELFCARE Is pt being admited?: No Does the pt Need Aspirin: No Condition: Stable Referrals: PATTIE KEANE MD [Primary Care Provider] - 3-5 Days
[2021-01-01 21:15] VITALS: BP 126/78
== END 2021-01-01 21:37 | disposition home or self-care (01) ==
LOC: ED 17:45
DX: D57.00 Hb-SS disease with crisis, unspecified (principal); I10 Essential (primary) hypertension; M19.91 Primary osteoarthritis, unspecified site; J45.909 Unspecified asthma, uncomplicated; Z90.49 Acquired absence of other specified parts of digestive tract; Z98.890 Other specified postprocedural states; Z79.1 Long term (current) use of non-steroidal anti-inflammatories (NSAID); Z79.899 Other long term (current) drug therapy; Z88.8 Allergy status to other drugs, medicaments and biological substances
CPT/HCPCS: 96361; 96374; 96375; 96376; 99282; J1170; J1200; J1642; J2405

== ENCOUNTER 2021-01-06 15:17 | Emergency (ER) | payer MEDICAID ==
[2021-01-06] MEDS ORDERED: SODIUM CHLORIDE 0.9% 1000 ML 1,000 ML IV ONE (15:21)
--- NOTE | 2021-01-06 15:23 | Event Note ---
ED Screening Note Date of service: 01/06/21 Time: 15:22 ED Screening Note: 35-year-old female with a past medical history of sickle cell presents to the ER today complaint of flareup of her sickle cell pain. She states that she been having pain in her lower back going down to her legs which is the typical location of her pain. States that her symptoms flared up yesterday. She states that her typical pain medications have not been helping. She denies any chest pain or shortness of breath. She denies any fever or chills. She denies any abdominal pain, vomiting or diarrhea. This initial assessment/diagnostic orders/clinical plan/treatment(s) is/are subject to change based on patients health status, clinical progression and re- assessment by fellow clinical providers in the ED. Further treatment and workup at subsequent clinical providers discretion. Patient/guardian urged not to elope from the ED as their condition may be serious if not clinically assessed and managed. Initial orders include: CBC, CMP, urinalysis, hCG, reticulocyte count
[2021-01-06] MEDS ORDERED: diphenhydrAMINE 50 MG/ML VIAL IV ONE (15:48)
[2021-01-06] MEDS ORDERED: HYDROmorphone 2 MG/1 ML INJ IV ONE (15:48)
[2021-01-06] MEDS ORDERED: ONDANSETRON 4 MG/2 ML INJ IV ONE (15:48)
[2021-01-06] MEDS ORDERED: KETOROLAC 30 MG/1 ML INJ IV ONE (15:48)
[2021-01-06] MEDS ORDERED: D5W/0.2% NACL 1,000 ML IV SCH (16:00)
[2021-01-06 16:09] LABS: Hematocrit 23.6 % (30.3-42.9); Mean Corpuscular HGB Conc 34 % (30-34); Mean Corpuscular Volume 96 fl (79-97); Platelet Count 368 K/mm3 (140-440); Red Blood Count 2.45 M/mm3 (3.65-5.03)
[2021-01-06 16:11] LABS: Red Cell Distribution Width 20.1 % (13.2-15.2)
--- NOTE | 2021-01-06 16:38 | Emergency Department Report ---
ED General Adult HPI - General Chief complaint: Sickle Cell Crisis Stated complaint: SICKLE CELL Time Seen by Provider: 01/06/21 15:48 Source: patient Mode of arrival: Ambulatory Limitations: No Limitations - History of Present Illness Initial comments: 35-year-old female the past medical history of asthma, hypertension, sickle cell disease, and cholecystectomy presents to the hospital complaints of pain secondary to sickle cell crisis x2 days. Patient states that pain was likely exacerbated by increased physical activity/increase walking several days ago. She complains of bilateral leg and lower back pain. She denies chest pain, shortness of breath, fever, nausea, vomiting, abdominal pain, or dysuria. Currently taking Percocet 10 mg without improvement. 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 [place] Severity scale (0 -10): 10 - Related Data Home Medications Medication Instructions Recorded Confirmed Last Taken Methadone [Dolophine] 20 mg PO BID 03/19/19 03/22/20 08/18/19 Percocet 5/325 mg 10 mg PO PRN 01/29/20 03/22/20 01/28/20 Previous Rx's Medication Instructions Recorded Last Taken Type Folic Acid [Folvite] 1 mg PO DAILY #30 tablet 08/23/19 01/29/20 Rx Hydroxyurea 500 mg PO DAILY #30 cap 08/23/19 Unknown Rx amLODIPine 10 mg PO QDAY #30 tablet 08/23/19 01/28/20 Rx cloNIDine [Catapres] 0.2 mg PO BID #60 08/23/19 01/28/20 Rx lisinopriL [Zestril TAB] 40 mg PO QDAY #30 tablet 08/23/19 01/28/20 Rx Albuterol Mdi (or & Nicu Only) 2 puff IH QID PRN #1 inhalation 01/13/20 01/29/20 11:27 Rx [ProAir HFA Inhaler] HYDROcodone/APAP 5-325 [[place] 1 - 2 each PO Q6HR PRN #10 tablet 04/05/20 Unknown Rx 5/325] HYDROcodone/APAP 5-325 [[place] 1 - 2 each PO Q6HR PRN #14 tablet 09/09/20 Unknown Rx 5/325] predniSONE [Deltasone] 3 tab PO QDAY 3 Days #9 tab 10/14/20 Unknown Rx HYDROcodone/APAP 5-325 [[place] 1 - 2 each PO Q6HR PRN #14 tablet 11/12/20 Unknown Rx 5/325] Ibuprofen [Motrin 800 MG tab] 800 mg PO Q8HR PRN #20 tablet 11/12/20 Unknown Rx HYDROcodone/APAP 5-325 [[place] 1 - 2 each PO Q6HR PRN #14 tablet 11/22/20 Unknown Rx 5/325] HYDROcodone/APAP 5-325 [[place] 1 - 2 each PO Q6HR PRN #14 tablet 12/25/20 Unknown Rx 5/325] Ibuprofen [Motrin 800 MG tab] 800 mg PO Q8HR PRN #20 tablet 12/25/20 Unknown Rx Allergies Allergy/AdvReac Type Severity Reaction Status Date / Time morphine Allergy Shortness Verified 01/06/21 15:19 of Breath vancomycin Allergy Unknown Verified 01/06/21 15:19 ED Review of Systems ROS: Stated complaint: SICKLE CELL Other details as noted in HPI Comment: All other systems reviewed and negative ED Past Medical Hx - Past Medical History Hx Hypertension: Yes Hx Sickle Cell Disease: Yes Hx Arthritis: Yes Hx Asthma: Yes Additional medical history: ANEMIA, multiple port infections - Surgical History Hx Cholecystectomy: Yes Additional Surgical History: , port removed June 2014. PICC line left upper arm (11/19/2014). . - Social History Smoking Status: Never Smoker Substance Use Type: None - Medications Home Medications: Home Medications Medication Instructions Recorded Confirmed Last Taken Type Methadone [Dolophine] 20 mg PO BID 03/19/19 03/22/20 08/18/19 History Folic Acid [Folvite] 1 mg PO DAILY #30 tablet 08/23/19 03/22/20 01/29/20 Rx Hydroxyurea 500 mg PO DAILY #30 cap 08/23/19 03/22/20 Unknown Rx amLODIPine 10 mg PO QDAY #30 tablet 08/23/19 03/22/20 01/28/20 Rx cloNIDine [Catapres] 0.2 mg PO BID #60 08/23/19 03/22/20 01/28/20 Rx lisinopriL [Zestril TAB] 40 mg PO QDAY #30 tablet 08/23/19 03/22/20 01/28/20 Rx Albuterol Mdi (or & Nicu Only) 2 puff IH QID PRN #1 inhalation 01/13/20 03/22/2001/28/20 11:27 Rx [ProAir HFA Inhaler] Percocet 5/325 mg 10 mg PO PRN 01/29/20 03/22/20 01/28/20 History HYDROcodone/APAP 5-325 [[place] 1 - 2 each PO Q6HR PRN #10 tablet 04/05/20 Unknown Rx 5/325] HYDROcodone/APAP 5-325 [[place] 1 - 2 each PO Q6HR PRN #14 tablet 09/09/20 Unknown Rx 5/325] predniSONE [Deltasone] 3 tab PO QDAY 3 Days #9 tab 10/14/20 Unknown Rx HYDROcodone/APAP 5-325 [[place] 1 - 2 each PO Q6HR PRN #14 tablet 11/12/20 Unknown Rx 5/325] Ibuprofen [Motrin 800 MG tab] 800 mg PO Q8HR PRN #20 tablet 11/12/20 Unknown Rx HYDROcodone/APAP 5-325 [[place] 1 - 2 each PO Q6HR PRN #14 tablet 11/22/20 Unknown Rx 5/325] HYDROcodone/APAP 5-325 [[place] 1 - 2 each PO Q6HR PRN #14 tablet 12/25/20 Unknown Rx 5/325] Ibuprofen [Motrin 800 MG tab] 800 mg PO Q8HR PRN #20 tablet 12/25/20 Unknown Rx ED Physical Exam - General Limitations: No Limitations - Other Other exam information: General: No acute distress Head: Atraumatic Eyes: normal appearance ENT: Moist mucous membranes Neck: Normal appearance, no midline tenderness Chest: Clear to auscultation bilaterally CV: Regular rate and rhythm Abdomen: Soft, normal bowel sounds, nontender, nondistended, no rebound or guarding Back: Normal inspection, nontender Extremity: Normal inspection, full range of motion, no tenderness on examination, no edema Neuro: Alert O x 3, no facial asymmetry, speech clear, no gross motor sensory deficit Psych: Appropriate behavior Skin: No rash ED Course Vital Signs 01/06/21 01/06/21 15:20 18:06 Temperature 98.4 F Pulse Rate 95 H 84 Respiratory 18 18 Rate Blood Pressure 154/82 Blood Pressure 152/78 [Left] O2 Sat by Pulse 91 97 Oximetry ED Medical Decision Making - Lab Data Result diagrams: 01/06/21 16:02 Lab Results 01/06/21 01/06/21 Range/Units 16:02 16:02 WBC 14.2 H (4.5-11.0) K/mm3 RBC 2.45 L (3.65-5.03) M/mm3 Hgb 8.0 L (10.1-14.3) gm/dl Hct 23.6 L (30.3-42.9) % MCV 96 (79-97) fl MCH 33 H (28-32) pg MCHC 34 (30-34) % RDW 20.1 H (13.2-15.2) % Plt Count 368 (140-440) K/mm3 Percent Retic 11.72 H (0.78-2.58) % HCG, Qual Negative (Negative) - Medical Decision Making 35-year female presents to the hospital with sickle cell crisis which improved with ED treatment with pain medicine and IV hydration. 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 ED Disposition Clinical Impression: Anemia, sickle cell with crisis Disposition: DC-01 TO HOME OR SELFCARE Is pt being admited?: No Does the pt Need Aspirin: No Condition: Stable Instructions: Hemolytic Anemia Additional Instructions: Continue current medication as prescribed. Follow-up with your doctor or doctor/clinic provided. Return if symptoms worsen as indicated by your telma chappell instructions. Referrals: MD Brian [Other] - 3-5 Days (Hematology) Time of Disposition: 18:56
[2021-01-06] MEDS ORDERED: HYDROmorphone 1 MG/1 ML INJ IV ONE ×3 (16:57→19:01)
[2021-01-06 19:20] VITALS: BP 152/78
[2021-01-06 21:23] LABS: Total Cells Counted 100
[2021-01-06 21:24] LABS: Anisocytosis 1+; Sickle Cells Few
[2021-01-06 21:25] LABS: Hypochromasia Rare; Large Platelets Rare; Ovalocytes Few; Platelet Estimate Consistent w Auto
== END 2021-01-06 19:10 | disposition home or self-care (01) ==
LOC: ED 15:17
DX: D57.00 Hb-SS disease with crisis, unspecified (principal); I10 Essential (primary) hypertension; M19.91 Primary osteoarthritis, unspecified site; J45.909 Unspecified asthma, uncomplicated; Z90.49 Acquired absence of other specified parts of digestive tract; Z98.890 Other specified postprocedural states; Z79.1 Long term (current) use of non-steroidal anti-inflammatories (NSAID); Z79.899 Other long term (current) drug therapy; Z88.8 Allergy status to other drugs, medicaments and biological substances
CPT/HCPCS: 36415; 84703; 85007; 85025; 85045; 96361; 96374; 96375; 96376; 99283; J1170; J1200; J1642; J1885; J2405

== ENCOUNTER 2021-01-08 14:54 | Emergency (ER) | payer MEDICAID ==
[2021-01-08] MEDS ORDERED: HYDROmorphone 2 MG/1 ML INJ IV ONE ×3 (16:03→18:47)
--- NOTE | 2021-01-08 16:23 | Emergency Department Report ---
HPI - General Chief Complaint: Sickle Cell Crisis Time Seen by Provider: 01/08/21 16:02 - HPI HPI: This is a 35-year-old -Italian female who is well-known to both myself and this department. She presents with the complaint of a 2-day history of low back pain and bilateral lower extremity pain that she believes is a sickle cell pain crisis. She denies any chest pain, shortness of breath, fever, lower extremity swelling, cough. She also has a past medical history of hypertension and CHF. She has taken her home medications without any relief. She follows with Dr. Keane for hematology. No recent travel or sick contacts at home. She denies any dysuria, vaginal bleeding or discharge, numbness or paresthesias, problems with bowel or bladder. ED Past Medical Hx - Past Medical History Previous Medical History?: Yes Hx Hypertension: Yes Hx Sickle Cell Disease: Yes Hx Arthritis: Yes Hx Asthma: Yes Additional medical history: ANEMIA, multiple port infections - Surgical History Past Surgical History?: Yes Hx Cholecystectomy: Yes Additional Surgical History: , port removed June 2014. PICC line left upper arm (11/19/2014). . - Social History Smoking Status: Never Smoker Substance Use Type: None - Medications Home Medications: Home Medications Medication Instructions Recorded Confirmed Last Taken Type Methadone [Dolophine] 20 mg PO BID 03/19/19 03/22/20 08/18/19 History Folic Acid [Folvite] 1 mg PO DAILY #30 tablet 08/23/19 03/22/20 01/29/20 Rx Hydroxyurea 500 mg PO DAILY #30 cap 08/23/19 03/22/20 Unknown Rx amLODIPine 10 mg PO QDAY #30 tablet 08/23/19 03/22/20 01/28/20 Rx cloNIDine [Catapres] 0.2 mg PO BID #60 08/23/19 03/22/20 01/28/20 Rx lisinopriL [Zestril TAB] 40 mg PO QDAY #30 tablet 08/23/19 03/22/20 01/28/20 Rx Albuterol Mdi (or & Nicu Only) 2 puff IH QID PRN #1 inhalation 01/13/20 03/22/20 01/29/20 11:27 Rx [ProAir HFA Inhaler] Percocet 5/325 mg 10 mg PO PRN 01/29/20 03/22/20 01/28/20 History HYDROcodone/APAP 5-325 [[place] 1 - 2 each PO Q6HR PRN #10 tablet 04/05/20 Unknown Rx 5/325] HYDROcodone/APAP 5-325 [[place] 1 - 2 each PO Q6HR PRN #14 tablet 09/09/20 Unknown Rx 5/325] predniSONE [Deltasone] 3 tab PO QDAY 3 Days #9 tab 10/14/20 Unknown Rx HYDROcodone/APAP 5-325 [[place] 1 - 2 each PO Q6HR PRN #14 tablet 11/12/20 Unknown Rx 5/325] Ibuprofen [Motrin 800 MG tab] 800 mg PO Q8HR PRN #20 tablet 11/12/20 Unknown Rx HYDROcodone/APAP 5-325 [[place] 1 - 2 each PO Q6HR PRN #14 tablet 11/22/20 Unknown Rx 5/325] HYDROcodone/APAP 5-325 [[place] 1 - 2 each PO Q6HR PRN #14 tablet 12/25/20 Unknown Rx 5/325] Ibuprofen [Motrin 800 MG tab] 800 mg PO Q8HR PRN #20 tablet 12/25/20 Unknown Rx ED Review of Systems ROS: Stated complaint: SICKLE CELL Other details as noted in HPI Comment: All other systems reviewed and negative Constitutional: denies: chills, fever Eyes: denies: eye pain, vision change ENT: denies: ear pain, throat pain Respiratory: denies: cough, shortness of breath Cardiovascular: denies: chest pain, palpitations Gastrointestinal: denies: abdominal pain, vomiting Genitourinary: denies: dysuria, discharge Musculoskeletal: back pain, myalgia. denies: joint swelling Skin: denies: rash, lesions Neurological: denies: headache, weakness, numbness, paresthesias Physical Exam - Physical Exam Vital Signs: Vital Signs 01/08/21 14:56 Temperature 98.0 F Pulse Rate 87 Respiratory 24 Rate Blood Pressure 171/80 O2 Sat by Pulse 97 Oximetry Physical Exam: GENERAL: The patient is well-developed well-nourished. HENT: Normocephalic. Atraumatic. Patient has moist mucous membranes. EYES: Extraocular motions are intact. NECK: Supple. Trachea is midline. CHEST/LUNGS: Clear to auscultation. There is no respiratory distress noted. HEART/CARDIOVASCULAR: Regular. There is no tachycardia. There is no murmur. ABDOMEN: Abdomen is soft, nontender. Patient has normal bowel sounds. Obese habitus. SKIN: Skin is warm and dry. NEURO: The patient is awake, alert, and oriented. The patient is cooperative. The patient has no focal neurologic deficits. Normal speech. MUSCULOSKELETAL: There is no tenderness or deformity. There is no limitation range of motion. BACK: No midline thoracic or lumbar tenderness to palpation. There is some reproducible bilateral lumbar paraspinal tenderness to palpation. ED Course Vital Signs 01/08/21 14:56 Temperature 98.0 F Pulse Rate 87 Respiratory 24 Rate Blood Pressure 171/80 O2 Sat by Pulse 97 Oximetry ED Medical Decision Making - Lab Data Result diagrams: 01/08/21 16:37 01/08/21 16:37 Lab Results 01/08/21 01/08/21 Range/Units 16:37 16:37 WBC 15.3 H (4.5-11.0) K/mm3 RBC 2.49 L (3.65-5.03) M/mm3 Hgb 8.0 L (10.1-14.3) gm/dl Hct 23.5 L (30.3-42.9) % MCV 94 (79-97) fl MCH 32 (28-32) pg MCHC 34 (30-34) % RDW 18.4 H (13.2-15.2) % Plt Count 408 (140-440) K/mm3 Add Manual Diff Complete Total Counted 100 Seg Neuts % (Manual) 63.0 (40.0-70.0) % Lymphocytes % (Manual) 26.0 (13.4-35.0) % Monocytes % (Manual) 5.0 (0.0-7.3) % Eosinophils % (Manual) 5.0 H (0.0-4.3) % Basophils % (Manual) 1.0 (0.0-1.8) % Nucleated RBC % Not Reportable Seg Neutrophils # Man 9.6 H (1.8-7.7) K/mm3 Band Neutrophils # 0.0 K/mm3 Lymphocytes # (Manual) 4.0 (1.2-5.4) K/mm3 Abs React Lymphs (Man) 0.0 K/mm3 Monocytes # (Manual) 0.8 (0.0-0.8) K/mm3 Eosinophils # (Manual) 0.8 H (0.0-0.4) K/mm3 Basophils # (Manual) 0.2 H (0.0-0.1) K/mm3 Metamyelocytes # 0.0 K/mm3 Myelocytes # 0.0 K/mm3 Promyelocytes # 0.0 K/mm3 Blast Cells # 0.0 K/mm3 WBC Morphology Not Reportable Hypersegmented Neuts Not Reportable Hyposegmented Neuts Not Reportable Hypogranular Neuts Not Reportable Smudge Cells Not Reportable Toxic Granulation Not Reportable Toxic Vacuolation Not Reportable Dohle Bodies Not Reportable Pelger-Huet Anomaly Not Reportable Ariadne Rods Not Reportable Platelet Estimate Not Reportable Clumped Platelets Not Reportable Plt Clumps, EDTA Not Reportable Large Platelets Not Reportable Giant Platelets Not Reportable Platelet Satelliting Not Reportable Plt Morphology Comment Not Reportable RBC Morphology Not Reportable Dimorphic RBCs Not Reportable Polychromasia Not Reportable Hypochromasia Rare Poikilocytosis Not Reportable Anisocytosis 1+ Microcytosis 1+ Macrocytosis Not Reportable Spherocytes Not Reportable Pappenheimer Bodies Not Reportable Sickle Cells Few Target Cells Not Reportable Tear Drop Cells Not Reportable Ovalocytes Few Helmet Cells Not Reportable [place]ters-[place] Bodies Not Reportable [place] Rings Not Reportable [place] Cells Not Reportable Bite Cells Not Reportable Crenated Cell Not Reportable Elliptocytes Not Reportable Acanthocytes (Spur) Not Reportable Rouleaux Not Reportable Hemoglobin C Crystals Not Reportable Schistocytes Not Reportable Malaria parasites Not Reportable Percent Retic 16.91 H (0.78-2.58) % Alexis Bodies Not Reportable Hem Pathologist Commnt No Sodium 136 L (137-145) mmol/L Potassium 4.1 (3.6-5.0) mmol/L Chloride 102.0 (98-107) mmol/L Carbon Dioxide 26 (22-30) mmol/L Anion Gap 12 mmol/L BUN 17 (7-17) mg/dL Creatinine 1.0 (0.6-1.2) mg/dL Estimated GFR > 60 ml/min BUN/Creatinine Ratio 17 % Glucose 100 (65-100) mg/dL Calcium 8.5 (8.4-10.2) mg/dL Total Bilirubin 1.60 H (0.1-1.2) mg/dL AST 26 (5-40) units/L ALT 31 (7-56) units/L Alkaline Phosphatase 203 H (35-129) units/L Total Protein 6.6 (6.3-8.2) g/dL Albumin 3.4 L (3.9-5) g/dL Albumin/Globulin Ratio 1.1 % - Medical Decision Making I am familiar with Ms. Mendoza. She is a very pleasant 35-year-old female with a history of sickle cell anemia who presents with back pain and bilateral lower extremity pain, which is a normal presentation for her for sickle cell pain crisis. The patient does not have any midline thoracic or lumbar tenderness to palpation. She denies any problems with bowel or bladder, numbness or paresthesias, or any neurological deficits. The patient is seen moving all of her extremities and has been seen bearing weight and ambulatory. Patient's labs shows a leukocytosis of about 15,000, anemia with a hemoglobin of 8, and a reticulocytosis of about 16. All these lab values are consistent with the patient's previous visits. She denies any chest pain, shortness of breath, cough, for any concern for chest crisis. The patient does have some hypertension but otherwise vital signs have been reassuring including being afebrile. The patient received IV fluid resuscitation and a few doses of IV analgesia. She was reevaluated multiple times over multiple hours and says she is feeling greatly improved and asking for discharge home. 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 She has been instructed to take all of her medications as previously prescribed, follow-up with her PCP, and return to the emergency department with any worsening of her symptoms or with any acute distress. She understands and agrees to the plan. Critical Care Time: No Critical care attestation.: If time is entered above; I have spent that time in minutes in the direct care of this critically ill patient, excluding procedure time. ED Disposition Clinical Impression: Sickle cell pain crisis, Leg pain, bilateral Back pain Qualifiers: Back pain location: back pain in unspecified location Back pain laterality: bilateral Hypertension Qualifiers: Hypertension type: essential hypertension Qualified Code(s): I10 - Essential (primary) hypertension Disposition: TO HOME OR SELFCARE Is pt being admited?: No Condition: Stable Instructions: Hypertension, Adult, Hypertension (ED) Additional Instructions: Please follow-up with your primary care physician in the next few days. Take your medications as prescribed. Try to stay away from foods that are high in salt and caffeinated products. Keep a blood pressure log. Return to the emergency department with any worsening of your symptoms, new or concerning symptoms not addressed during this current emergency department visit, or with any acute distress. Referrals: PATTIE KEANE MD [Referring] - 3-5 Days Time of Disposition: 19:29
[2021-01-08] MEDS ORDERED: KETOROLAC 30 MG/1 ML INJ IV ONE (16:36)
[2021-01-08] MEDS ORDERED: ONDANSETRON 4 MG/2 ML INJ IV ONE (16:36)
[2021-01-08] MEDS ORDERED: diphenhydrAMINE 50 MG/ML VIAL IV ONE (16:36)
[2021-01-08] MEDS ORDERED: IPRATROPIUM/ALBUTEROL SULFATE 3 ML AMPUL.NEB IH ONE (16:56)
[2021-01-08 16:57] LABS: Hematocrit 23.5 % (30.3-42.9); Mean Corpuscular HGB Conc 34 % (30-34); Mean Corpuscular Volume 94 fl (79-97); Platelet Count 408 K/mm3 (140-440); Red Blood Count 2.49 M/mm3 (3.65-5.03); Red Cell Distribution Width 18.4 % (13.2-15.2)
[2021-01-08 17:13] LABS: Alanine Aminotransferase 31 units/L (7-56); Albumin 3.4 g/dL (3.9-5); BUN/Creatinine Ratio 17; Blood Urea Nitrogen 17 mg/dL (7-17); Calcium 8.5 mg/dL (8.4-10.2); Hemolysis Index 4
[2021-01-08] MEDS ORDERED: HYDROmorphone 1 MG/1 ML INJ IV ONE (17:38)
[2021-01-08] MEDS ORDERED: SODIUM CHLORIDE 0.9% 1000 ML 1,000 ML IV ONE (18:01)
[2021-01-08 18:02] LABS: Total Cells Counted 100
[2021-01-08 18:03] LABS: Anisocytosis 1+; Hypochromasia Rare; Ovalocytes Few; Sickle Cells Few
[2021-01-08 20:08] VITALS: BP 158/73
== END 2021-01-08 19:45 | disposition home or self-care (01) ==
LOC: ED 14:54
DX: D57.00 Hb-SS disease with crisis, unspecified (principal); M54.5 Low back pain; M79.662 Pain in left lower leg; M79.661 Pain in right lower leg; I10 Essential (primary) hypertension; M19.91 Primary osteoarthritis, unspecified site; J45.909 Unspecified asthma, uncomplicated; Z98.890 Other specified postprocedural states; Z79.1 Long term (current) use of non-steroidal anti-inflammatories (NSAID); Z79.899 Other long term (current) drug therapy; Z88.8 Allergy status to other drugs, medicaments and biological substances
CPT/HCPCS: 36415; 80053; 85007; 85025; 85045; 94640; 96361; 96374; 96375; 96376; 99283; J1170; J1200; J1642; J1885; J2405; J7030; 94644

== ENCOUNTER 2021-01-13 19:07 | Emergency (ER) | payer MEDICAID ==
--- NOTE | 2021-01-13 20:16 | Emergency Department Report ---
Blank Doc - Documentation Documentation: 35-year-old female that presents with generalized pain with sickle cell crisis. 1- This initial assessment/diagnostic orders/clinical plan/ treatment(s) is/are subject to change based on pt's health status, clinical progression and re- assessment by fellow clinical providers in the ED. Further treatment and workup at subsequent clinical provers discretion. Patient/guardians urged not to elope from ED as their condition may be serious if not clinically assessed and managed. 2-labs
[2021-01-13 20:18] VITALS: BP 172/98
[2021-01-13] MEDS ORDERED: KETOROLAC 30 MG/1 ML INJ IV ONE (20:53)
[2021-01-13] MEDS ORDERED: HYDROmorphone 1 MG/1 ML INJ IV ONE ×2 (20:53→22:49)
[2021-01-13] MEDS ORDERED: SODIUM CHLORIDE 0.9% 1000 ML 1,000 ML IV ONE ×2 (20:53→20:54)
[2021-01-13] MEDS ORDERED: diphenhydrAMINE 50 MG/ML VIAL IV ONE ×2 (20:54→22:50)
[2021-01-13 22:12] LABS: Hematocrit 27.3 % (30.3-42.9); Mean Corpuscular HGB Conc 33 % (30-34); Mean Corpuscular Volume 96 fl (79-97); Platelet Count 490 K/mm3 (140-440); Red Blood Count 2.86 M/mm3 (3.65-5.03)
[2021-01-13 22:16] LABS: Red Cell Distribution Width 20.8 % (13.2-15.2)
[2021-01-13 22:33] LABS: BUN/Creatinine Ratio 16; Blood Urea Nitrogen 14 mg/dL (7-17); Calcium 8.9 mg/dL (8.4-10.2); Hemolysis Index 4
[2021-01-13 23:07] LABS: Total Cells Counted 100
[2021-01-13 23:08] LABS: Anisocytosis 1+; Hypochromasia Rare; Ovalocytes Few; Sickle Cells Few
[2021-01-13] MEDS ORDERED: HYDROmorphone 2 MG/1 ML INJ IV ONE ×2 (23:38→23:39)
--- NOTE | 2021-01-13 23:50 | Emergency Department Report ---
ED General Adult HPI - General Chief complaint: Sickle Cell Crisis Stated complaint: SICKLE CELL PAIN Time Seen by Provider: 01/13/21 20:15 Source: patient Mode of arrival: Ambulatory Limitations: No Limitations - History of Present Illness Initial comments: Patient is a 35-year-old F [place] female with sickle cell disease who is presenting with pain in her lower back and legs. Patient is well-known to our department and is frequently here for pain exacerbations. She is followed by Dr. Torres. Patient denies any chest pain cough cold congestion fevers or chills. Pain is estimated 10 out of 10. States she believes her exacerbation today is because her menses started and she is having some heavy bleeding. Severity scale (0 -10): 10 - Related Data Home Medications Medication Instructions Recorded Confirmed Last Taken RX: Methadone [Dolophine] 20 mg PO BID 03/19/19 03/22/20 08/18/19 Percocet 5/325 mg 10 mg PO PRN 01/29/20 03/22/20 01/28/20 Previous Rx's Medication Instructions Recorded Last Taken Type RX: Folic Acid [Folvite] 1 mg PO DAILY #30 tablet 08/23/19 01/29/20 Rx RX: Hydroxyurea 500 mg PO DAILY #30 cap 08/23/19 Unknown Rx RX: amLODIPine 10 mg PO QDAY #30 tablet 08/23/19 01/28/20 Rx RX: cloNIDine [Catapres] 0.2 mg PO BID #60 08/23/19 01/28/20 Rx RX: lisinopriL [Zestril TAB] 40 mg PO QDAY #30 tablet 08/23/19 01/28/20 Rx RX: Albuterol Mdi (or & Nicu Only) 2 puff IH QID PRN #1 inhalation 01/13/20 01/29/20 11:27 Rx [ProAir HFA Inhaler] HYDROcodone/APAP 5-325 [[place] 1 - 2 each PO Q6HR PRN #10 tablet 04/05/20 Unknown Rx 5/325] HYDROcodone/APAP 5-325 [[place] 1 - 2 each PO Q6HR PRN #14 tablet 09/09/20 Unknown Rx 5/325] RX: predniSONE [Deltasone] 3 tab PO QDAY 3 Days #9 tab 10/14/20 Unknown Rx HYDROcodone/APAP 5-325 [[place] 1 - 2 each PO Q6HR PRN #14 tablet 11/12/20 Unknown Rx 5/325] RX: Ibuprofen [Motrin 800 MG tab] 800 mg PO Q8HR PRN #20 tablet 11/12/20 Unknown Rx HYDROcodone/APAP 5-325 [[place] 1 - 2 each PO Q6HR PRN #14 tablet 11/22/20 Unknown Rx 5/325] HYDROcodone/APAP 5-325 [[place] 1 - 2 each PO Q6HR PRN #14 tablet 12/25/20 Unknown Rx 5/325] RX: Ibuprofen [Motrin 800 MG tab] 800 mg PO Q8HR PRN #20 tablet 12/25/20 Unknown Rx Allergies Allergy/AdvReac Type Severity Reaction Status Date / Time morphine Allergy Shortness Verified 01/06/21 15:19 of Breath vancomycin Allergy Unknown Verified 01/06/21 15:19 ED Review of Systems ROS: Stated complaint: SICKLE CELL PAIN Other details as noted in HPI Comment: All other systems reviewed and negative ED Past Medical Hx - Past Medical History Previous Medical History?: Yes Hx Hypertension: Yes Hx Sickle Cell Disease: Yes Hx Arthritis: Yes Hx Asthma: Yes Additional medical history: ANEMIA, multiple port infections - Surgical History Past Surgical History?: Yes Hx Cholecystectomy: Yes Additional Surgical History: , port removed June 2014. PICC line left upper arm (11/19/2014). . - Social History Smoking Status: Never Smoker Substance Use Type: None - Medications Home Medications: Home Medications Medication Instructions Recorded Confirmed Last Taken Type RX: Methadone [Dolophine] 20 mg PO BID 03/19/19 03/22/20 08/18/19 History RX: Folic Acid [Folvite] 1 mg PO DAILY #30 tablet 08/23/19 03/22/20 01/29/20 Rx RX: Hydroxyurea 500 mg PO DAILY #30 cap 08/23/19 03/22/20 Unknown Rx RX: amLODIPine 10 mg PO QDAY #30 tablet 08/23/19 03/22/20 01/28/20 Rx RX: cloNIDine [Catapres] 0.2 mg PO BID #60 08/23/19 03/22/20 01/28/20 Rx RX: lisinopriL [Zestril TAB] 40 mg PO QDAY #30 tablet 08/23/19 03/22/20 01/28/20 Rx RX: Albuterol Mdi (or & Nicu Only) 2 puff IH QID PRN #1 inhalation 01/13/20 03/22/20 01/29/20 11:27 Rx [ProAir HFA Inhaler] Percocet 5/325 mg 10 mg PO PRN 01/29/20 03/22/20 01/28/20 History HYDROcodone/APAP 5-325 [[place] 1 - 2 each PO Q6HR PRN #10 tablet 04/05/20 Unknown Rx 5/325] HYDROcodone/APAP 5-325 [[place] 1 - 2 each PO Q6HR PRN #14 tablet 09/09/20 Unknown Rx 5/325] RX: predniSONE [Deltasone] 3 tab PO QDAY 3 Days #9 tab 10/14/20 Unknown Rx HYDROcodone/APAP 5-325 [[place] 1 - 2 each PO Q6HR PRN #14 tablet 11/12/20 Unknown Rx 5/325] RX: Ibuprofen [Motrin 800 MG tab] 800 mg PO Q8HR PRN #20 tablet 11/12/20 Unknown Rx HYDROcodone/APAP 5-325 [[place] 1 - 2 each PO Q6HR PRN #14 tablet 11/22/20 Unknown Rx 5/325] HYDROcodone/APAP 5-325 [[place] 1 - 2 each PO Q6HR PRN #14 tablet 12/25/20 Unknown Rx 5/325] RX: Ibuprofen [Motrin 800 MG tab] 800 mg PO Q8HR PRN #20 tablet 12/25/20 Unknown Rx ED Physical Exam - General Limitations: No Limitations General appearance: alert, in distress (secondary to pain) - Head Head exam: Present: atraumatic, normocephalic - Eye Eye exam: Present: normal appearance - ENT ENT exam: Present: normal orophraynx, mucous membranes moist - Neck Neck exam: Present: normal inspection - Respiratory Respiratory exam: Present: normal lung sounds bilaterally. Absent: respiratory distress, wheezes, rales, rhonchi - Cardiovascular Cardiovascular Exam: Present: regular rate, normal rhythm, normal heart sounds. Absent: systolic murmur, diastolic murmur, rubs, gallop - GI/Abdominal GI/Abdominal exam: Present: soft, normal bowel sounds. Absent: distended, tenderness, guarding - Extremities Exam Extremities exam: Present: normal inspection - Back Exam Back exam: Present: normal inspection - Neurological Exam Neurological exam: Present: alert, oriented X3 - Psychiatric Psychiatric exam: Present: normal affect, normal mood - Skin Skin exam: Present: warm, dry, intact, normal color. Absent: rash ED Course Vital Signs 01/13/21 20:14 Temperature 98.9 F Pulse Rate 70 Respiratory 16 Rate Blood Pressure 172/98 O2 Sat by Pulse 97 Oximetry ED Medical Decision Making - Lab Data Result diagrams: 01/13/21 22:00 01/13/21 22:00 Lab Results 01/13/21 01/13/21 Range/Units 22:00 22:00 WBC 14.0 H (4.5-11.0) K/mm3 RBC 2.86 L (3.65-5.03) M/mm3 Hgb 9.0 L (10.1-14.3) gm/dl Hct 27.3 L (30.3-42.9) % MCV 96 (79-97) fl MCH 32 (28-32) pg MCHC 33 (30-34) % RDW 20.8 H (13.2-15.2) % Plt Count 490 H (140-440) K/mm3 Add Manual Diff Complete Total Counted 100 Seg Neuts % (Manual) 63.0 (40.0-70.0) % Lymphocytes % (Manual) 28.0 (13.4-35.0) % Monocytes % (Manual) 7.0 (0.0-7.3) % Eosinophils % (Manual) 1.0 (0.0-4.3) % Basophils % (Manual) 1.0 (0.0-1.8) % Nucleated RBC % Not Reportable Seg Neutrophils # Man 8.8 H (1.8-7.7) K/mm3 Band Neutrophils # 0.0 K/mm3 Lymphocytes # (Manual) 3.9 (1.2-5.4) K/mm3 Abs React Lymphs (Man) 0.0 K/mm3 Monocytes # (Manual) 1.0 H (0.0-0.8) K/mm3 Eosinophils # (Manual) 0.1 (0.0-0.4) K/mm3 Basophils # (Manual) 0.1 (0.0-0.1) K/mm3 Metamyelocytes # 0.0 K/mm3 Myelocytes # 0.0 K/mm3 Promyelocytes # 0.0 K/mm3 Blast Cells # 0.0 K/mm3 WBC Morphology Not Reportable Hypersegmented Neuts Not Reportable Hyposegmented Neuts Not Reportable Hypogranular Neuts Not Reportable Smudge Cells Not Reportable Toxic Granulation Not Reportable Toxic Vacuolation Not Reportable Dohle Bodies Not Reportable Pelger-Huet Anomaly Not Reportable Ariadne Rods Not Reportable Platelet Estimate Not Reportable Clumped Platelets Not Reportable Plt Clumps, EDTA Not Reportable Large Platelets Not Reportable Giant Platelets Not Reportable Platelet Satelliting Not Reportable Plt Morphology Comment Not Reportable RBC Morphology Not Reportable Dimorphic RBCs Not Reportable Polychromasia Not Reportable Hypochromasia Rare Poikilocytosis Not Reportable Anisocytosis 1+ Microcytosis 1+ Macrocytosis Not Reportable Spherocytes Not Reportable Pappenheimer Bodies Not Reportable Sickle Cells Few Target Cells Not Reportable Tear Drop Cells Not Reportable Ovalocytes Few Helmet Cells Not Reportable [place]ters-[place] Bodies Not Reportable [place] Rings Not Reportable [place] Cells Not Reportable Bite Cells Not Reportable Crenated Cell Not Reportable Elliptocytes Not Reportable Acanthocytes (Spur) Not Reportable Rouleaux Not Reportable Hemoglobin C Crystals Not Reportable Schistocytes Not Reportable Malaria parasites Not Reportable Percent Retic 8.43 H (0.78-2.58) % Alexis Bodies Not Reportable Hem Pathologist Commnt No Sodium 137 (137-145) mmol/L Potassium 4.1 (3.6-5.0) mmol/L Chloride 100.7 (98-107) mmol/L Carbon Dioxide 28 (22-30) mmol/L Anion Gap 12 mmol/L BUN 14 (7-17) mg/dL Creatinine 0.9 (0.6-1.2) mg/dL Estimated GFR > 60 ml/min BUN/Creatinine Ratio 16 % Glucose 105 H (65-100) mg/dL Calcium 8.9 (8.4-10.2) mg/dL - Medical Decision Making Patient hydrated and given several doses of pain medication. Pain decreased to 4 out of 10 in severity which the patient is comfortable going home. Patient states she does not feel as though she needs admission at this time. Patient be discharged. Critical care attestation.: If time is entered above; I have spent that time in minutes in the direct care of this critically ill patient, excluding procedure time. ED Disposition Clinical Impression: Anemia, sickle cell with crisis Disposition: DC-01 TO HOME OR SELFCARE Is pt being admited?: No Does the pt Need Aspirin: No Condition: Stable Referrals: PRIMARY CARE, [Primary Care Provider] - 3-5 Days Time of Disposition: 23:50
== END 2021-01-14 00:12 | disposition home or self-care (01) ==
LOC: ED 19:07
DX: D57.00 Hb-SS disease with crisis, unspecified (principal); I10 Essential (primary) hypertension; M19.91 Primary osteoarthritis, unspecified site; J45.909 Unspecified asthma, uncomplicated; Z90.49 Acquired absence of other specified parts of digestive tract; Z98.890 Other specified postprocedural states; Z79.1 Long term (current) use of non-steroidal anti-inflammatories (NSAID); Z79.899 Other long term (current) drug therapy; Z88.8 Allergy status to other drugs, medicaments and biological substances
CPT/HCPCS: 36415; 80048; 85007; 85025; 85045; 96361; 96374; 96375; 96376; 99283; J1170; J1200; J1642; J1885; J7030

== ENCOUNTER 2021-01-15 12:39 | Emergency (ER) | payer MEDICAID ==
--- NOTE | 2021-01-15 12:52 | Event Note ---
ED Screening Note Date of service: 01/15/21 Time: 12:50 ED Screening Note: pt presents to ED with c/o sickle cell pain in lower back and lower legs. This is the same pain she has when she feels like she is in crisis. She has percocet and methadone at home, took them this morning but it did not help her pain. She has an appt with Dr Torres Sunday. She has no other symptoms. This initial assessment/diagnostic orders/clinical plan/treatment(s) is/are subject to change based on patients health status, clinical progression and re- assessment by fellow clinical providers in the ED. Further treatment and workup at subsequent clinical providers discretion. Patient/guardian urged not to elope from the ED as their condition may be serious if not clinically assessed and managed. Initial orders include: CBC CMP retic count
[2021-01-15] MEDS ORDERED: METHADONE 10 MG TAB PO ONE (13:18)
[2021-01-15] MEDS ORDERED: cloNIDine 0.2 MG TAB PO ONE (13:19)
--- NOTE | 2021-01-15 13:24 | Emergency Department Report ---
ED General Adult HPI - General Chief complaint: Sickle Cell Crisis Stated complaint: SICKLE CELL CRISIS Source: patient Mode of arrival: Ambulatory Limitations: No Limitations - History of Present Illness Initial comments: This is a 35-year-old patient with sickle cell disease and opioid dependency. She has presented here multiple times within the last 10 days for pain manageme nt. Her last visit was on the . She has a chronically elevated reticulocyte count. The count on the was less than 9 which is quite low for her. Although she was seen here clearly on the , she denies being seen at this emergency department. She states she has not been going to other emergency departments although I am told that she is well-known and multiple other emergency department venues. The patient is on methadone and Percocet both of which she has at home. She states despite "hurting all over" she did not take her methadone at all today. This appears to be difficult to explain in the face of significant acute pain. The patient is frequently treated with intravenous Dilaudid. However, she does not really describe any change from her baseline allodynia. He does not report a an acute pain to be. In addition she admits to not taking her clonidine today although she took her lisinopril and amlodipine. -: year(s) Location: upper extremity, lower extremity Radiation: non-radiation Quality: aching Consistency: constant Improves with: none Worsens with: none Associated Symptoms: denies other symptoms - Related Data Home Medications Medication Instructions Recorded Confirmed Last Taken Methadone [Dolophine] 20 mg PO BID 03/19/19 03/22/20 08/18/19 Percocet 5/325 mg 10 mg PO PRN 01/29/20 03/22/20 01/28/20 Previous Rx's Medication Instructions Recorded Last Taken Type Folic Acid [Folvite] 1 mg PO DAILY #30 tablet 08/23/19 01/29/20 Rx Hydroxyurea 500 mg PO DAILY #30 cap 08/23/19 Unknown Rx amLODIPine 10 mg PO QDAY #30 tablet 08/23/19 01/28/20 Rx cloNIDine [Catapres] 0.2 mg PO BID #60 08/23/19 01/28/20 Rx lisinopriL [Zestril TAB] 40 mg PO QDAY #30 tablet 08/23/19 01/28/20 Rx Albuterol Mdi (or & Nicu Only) 2 puff IH QID PRN #1 inhalation 01/13/20 01/29/20 11:27 Rx [ProAir HFA Inhaler] HYDROcodone/APAP 5-325 [[place] 1 - 2 each PO Q6HR PRN #10 tablet 04/05/20 Unknown Rx 5/325] HYDROcodone/APAP 5-325 [[place] 1 - 2 each PO Q6HR PRN #14 tablet 09/09/20 Unknown Rx 5/325] predniSONE [Deltasone] 3 tab PO QDAY 3 Days #9 tab 10/14/20 Unknown Rx HYDROcodone/APAP 5-325 [[place] 1 - 2 each PO Q6HR PRN #14 tablet 11/12/20 Unknown Rx 5/325] Ibuprofen [Motrin 800 MG tab] 800 mg PO Q8HR PRN #20 tablet 11/12/20 Unknown Rx HYDROcodone/APAP 5-325 [[place] 1 - 2 each PO Q6HR PRN #14 tablet 11/22/20 Unknown Rx 5/325] HYDROcodone/APAP 5-325 [[place] 1 - 2 each PO Q6HR PRN #14 tablet 12/25/20 Unknown Rx 5/325] Ibuprofen [Motrin 800 MG tab] 800 mg PO Q8HR PRN #20 tablet 12/25/20 Unknown Rx Allergies Allergy/AdvReac Type Severity Reaction Status Date / Time morphine Allergy Shortness Verified 01/06/21 15:19 of Breath vancomycin Allergy Unknown Verified 01/06/21 15:19 ED Review of Systems ROS: Stated complaint: SICKLE CELL CRISIS Other details as noted in HPI Constitutional: denies: chills, fever Eyes: denies: eye pain, vision change ENT: as per HPI Respiratory: no symptoms reported Cardiovascular: denies: chest pain, palpitations Endocrine: no symptoms reported Gastrointestinal: denies: abdominal pain, vomiting Genitourinary: other (States recent menses completed). denies: urgency, dysuria Musculoskeletal: as per HPI Skin: denies: lesions (Nothing acute reported) Neurological: denies: headache, weakness, numbness Hematological/Lymphatic: denies: easy bleeding, easy bruising ED Past Medical Hx - Past Medical History Previous Medical History?: Yes Hx Hypertension: Yes Hx Sickle Cell Disease: Yes Hx Arthritis: Yes Hx Asthma: Yes Additional medical history: ANEMIA, multiple port infections. Opioid dependency - Surgical History Past Surgical History?: Yes Hx Cholecystectomy: Yes Additional Surgical History: , port removed June 2014. PICC line left upper arm (11/19/2014). . - Social History Smoking Status: Never Smoker Substance Use Type: None - Medications Home Medications: Home Medications Medication Instructions Recorded Confirmed Last Taken Type Methadone [Dolophine] 20 mg PO BID 03/19/19 03/22/20 08/18/19 History Folic Acid [Folvite] 1 mg PO DAILY #30 tablet 08/23/19 03/22/20 01/29/20 Rx Hydroxyurea 500 mg PO DAILY #30 cap 08/23/19 03/22/20 Unknown Rx amLODIPine 10 mg PO QDAY #30 tablet 08/23/19 03/22/20 01/28/20 Rx cloNIDine [Catapres] 0.2 mg PO BID #60 08/23/19 03/22/20 01/28/20 Rx lisinopriL [Zestril TAB] 40 mg PO QDAY #30 tablet 08/23/19 03/22/20 01/28/20 Rx Albuterol Mdi (or & Nicu Only) 2 puff IH QID PRN #1 inhalation 01/13/20 03/22/20 01/29/20 11:27 Rx [ProAir HFA Inhaler] Percocet 5/325 mg 10 mg PO PRN 01/29/20 03/22/20 01/28/20 History HYDROcodone/APAP 5-325 [[place] 1 - 2 each PO Q6HR PRN #10 tablet 04/05/20 Unknown Rx 5/325] HYDROcodone/APAP 5-325 [[place] 1 - 2 each PO Q6HR PRN #14 tablet 09/09/20 Unknown Rx 5/325] predniSONE [Deltasone] 3 tab PO QDAY 3 Days #9 tab 10/14/20 Unknown Rx HYDROcodone/APAP 5-325 [[place] 1 - 2 each PO Q6HR PRN #14 tablet 11/12/20 Unknown Rx 5/325] Ibuprofen [Motrin 800 MG tab] 800 mg PO Q8HR PRN #20 tablet 11/12/20 Unknown Rx HYDROcodone/APAP 5-325 [[place] 1 - 2 each PO Q6HR PRN #14 tablet 11/22/20 Unknown Rx 5/325] HYDROcodone/APAP 5-325 [[place] 1 - 2 each PO Q6HR PRN #14 tablet 12/25/20 Unknown Rx 5/325] Ibuprofen [Motrin 800 MG tab] 800 mg PO Q8HR PRN #20 tablet 12/25/20 Unknown Rx ED Physical Exam - General Limitations: No Limitations General appearance: alert, in no apparent distress - Head Head exam: Present: atraumatic, normocephalic - Eye Eye exam: Present: normal appearance, PERRL, EOMI - ENT ENT exam: Present: mucous membranes moist - Neck Neck exam: Present: normal inspection. Absent: meningismus - Respiratory Respiratory exam: Present: normal lung sounds bilaterally. Absent: respiratory distress - Cardiovascular Cardiovascular Exam: Present: regular rate, normal rhythm. Absent: systolic murmur, diastolic murmur, rubs, gallop - GI/Abdominal GI/Abdominal exam: Present: soft, normal bowel sounds. Absent: distended, tenderness, guarding, rebound - Extremities Exam Extremities exam: Present: normal inspection - Back Exam Back exam: Present: normal inspection - Neurological Exam Neurological exam: Present: alert, oriented X3, CN II-XII intact. Absent: motor sensory deficit - Psychiatric Psychiatric exam: Present: normal affect, normal mood - Skin Skin exam: Present: warm, dry, intact, normal color. Absent: rash ED Course Vital Signs 01/15/21 01/15/21 12:43 13:28 Temperature 99.0 F Pulse Rate 88 88 Respiratory 20 Rate Blood Pressure 174/102 174/106 O2 Sat by Pulse 100 Oximetry - Reevaluation(s) Reevaluation #1: This is a patient with opioid dependency and chronic pain. She is not compliant with her methadone. She also has chronic hypertension and is noncompliant with her clonidine. This behavior is not consistent with medical compliance nor rational management of chronic pain and hypertension. I do believe the logical physician would believe within reasonable medical certainty that the patient is here for secondary gain or re: intravenous Dilaudid. I do not believe that the patient is suffering from a sickle cell crisis at this juncture. I have discussed the problem of rebound pain after IV Dilaudid with this patient. I do believe this is part of her problem as well as her opioid dependency. Certainly the patient requires care by a chronic pain management clinic. I have reemphasized that to her. Patient will be given clonidine and methadone. She is appropriate for outpatient disposition. Additionally, I think one must consider the fact that the patient has had sepsis many times related to port infection and any previous transfusions. By access ing her port on an almost every day basis her risk of sepsis is increased not to mention phlebotomies depleting her red cell population. 01/15/21 13:31 Critical care attestation.: If time is entered above; I have spent that time in minutes in the direct care of this critically ill patient, excluding procedure time. ED Disposition Clinical Impression: Poorly-controlled hypertension, Medical non-compliance Opioid dependence Qualifiers: Substance use status: uncomplicated Qualified Code(s): F11.20 - Opioid dependence, uncomplicated Chronic pain Qualifiers: Chronic pain type: chronic pain syndrome Qualified Code(s): G89.4 - Chronic pain syndrome Sickle cell disease Qualifiers: Sickle-cell associated disorders: without crisis Qualified Code(s): D57.1 - Sickle-cell disease without crisis Disposition: DC-01 TO HOME OR SELFCARE Is pt being admited?: No Does the pt Need Aspirin: No Condition: Stable Instructions: Chronic Pain, Adult, Opioid Pain Medicine Management, What You Need to Know About Chronic Back Pain, Opioid Use Disorder Additional Instructions: Emergency department as appropriate for acute change or problems. Chronic pain management cannot be performed in the emergency department. It is not consistent with current [place] statutes. It is important that you realize that repeated IV Dilaudid and phlebotomies are not innocuous. They increase the risk of infection/sepsis and transfusion respectively. In addition, it is well-known that intravenous narcotics can result in a rebound pain syndrome which is obviously adverse to your health. Referrals: PRIMARY CARE, [Primary Care Provider] - 3-5 Days Usual primary care, chronic pain management [Other] - 2-3 Days Time of Disposition: 13:33
[2021-01-15 13:30] VITALS: BP 174/106
== END 2021-01-15 13:53 | disposition home or self-care (01) ==
LOC: ED 12:39
DX: D57.1 Sickle-cell disease without crisis (principal); F11.20 Opioid dependence, uncomplicated; I10 Essential (primary) hypertension; G89.29 Other chronic pain; Z91.19 Patient's noncompliance with other medical treatment and regimen; M19.91 Primary osteoarthritis, unspecified site; J45.909 Unspecified asthma, uncomplicated; Z90.49 Acquired absence of other specified parts of digestive tract; Z98.890 Other specified postprocedural states; Z88.8 Allergy status to other drugs, medicaments and biological substances; Z79.1 Long term (current) use of non-steroidal anti-inflammatories (NSAID); Z79.899 Other long term (current) drug therapy
CPT/HCPCS: 99282

== ENCOUNTER 2021-01-29 18:51 | Emergency (ER) | payer MEDICAID ==
[2021-01-29] MEDS ORDERED: diphenhydrAMINE 50 MG/ML VIAL IV ONE ×2 (20:28→22:50)
[2021-01-29] MEDS ORDERED: ONDANSETRON 4 MG/2 ML INJ IV ONE (20:28)
[2021-01-29] MEDS ORDERED: HYDROmorphone 2 MG/1 ML INJ IV ONE ×3 (20:28→22:50)
[2021-01-29] MEDS ORDERED: KETOROLAC 30 MG/1 ML INJ IV ONE (20:28)
[2021-01-29] MEDS ORDERED: D5W/0.2% NACL 1,000 ML IV SCH (21:00)
--- NOTE | 2021-01-29 21:05 | Emergency Department Report ---
ED General Adult HPI - General Chief complaint: Sickle Cell Crisis Stated complaint: SICKLE CELL Time Seen by Provider: 01/29/21 20:26 Source: family, old records reviewed Mode of arrival: Ambulatory Limitations: No Limitations - History of Present Illness Initial comments: 35-year-old female with a past medical history of asthma, hypertension, chronic narcotic use, sickle cell disease presents to the hospital complaining of pain secondary to 6 required sutures today. For his abrasion to bilateral legs and lower back. She also complains of cramping lower abdominal pain secondary to her menstrual cycle. She denies headache, chest pain, shortness breath, fever, weakness, urinary incontinence, dysuria. Patient takes Percocet for chronic pain. 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 affiliated with [facility] - Related Data Home Medications Medication Instructions Recorded Confirmed Last Taken Methadone [Dolophine] 20 mg PO BID 03/19/19 03/22/20 08/18/19 Percocet 5/325 mg 10 mg PO PRN 01/29/20 03/22/20 01/28/20 Previous Rx's Medication Instructions Recorded Last Taken Type Folic Acid [Folvite] 1 mg PO DAILY #30 tablet 08/23/19 01/29/20 Rx Hydroxyurea 500 mg PO DAILY #30 cap 08/23/19 Unknown Rx amLODIPine 10 mg PO QDAY #30 tablet 08/23/19 01/28/20 Rx cloNIDine [Catapres] 0.2 mg PO BID #60 08/23/19 01/28/20 Rx lisinopriL [Zestril TAB] 40 mg PO QDAY #30 tablet 08/23/19 01/28/20 Rx Albuterol Mdi (or & Nicu Only) 2 puff IH QID PRN #1 inhalation 01/13/20 01/29/20 11:27 Rx [ProAir HFA Inhaler] HYDROcodone/APAP 5-325 [[place] 1 - 2 each PO Q6HR PRN #10 tablet 04/05/20 Unknown Rx 5/325] HYDROcodone/APAP 5-325 [[place] 1 - 2 each PO Q6HR PRN #14 tablet 09/09/20 Unknown Rx 5/325] predniSONE [Deltasone] 3 tab PO QDAY 3 Days #9 tab 10/14/20 Unknown Rx HYDROcodone/APAP 5-325 [[place] 1 - 2 each PO Q6HR PRN #14 tablet 11/12/20 Unknown Rx 5/325] Ibuprofen [Motrin 800 MG tab] 800 mg PO Q8HR PRN #20 tablet 11/12/20 Unknown Rx HYDROcodone/APAP 5-325 [[place] 1 - 2 each PO Q6HR PRN #14 tablet 11/22/20 Unknown Rx 5/325] HYDROcodone/APAP 5-325 [[place] 1 - 2 each PO Q6HR PRN #14 tablet 12/25/20 Unknown Rx 5/325] Ibuprofen [Motrin 800 MG tab] 800 mg PO Q8HR PRN #20 tablet 12/25/20 Unknown Rx Allergies Allergy/AdvReac Type Severity Reaction Status Date / Time morphine Allergy Shortness Verified 01/06/21 15:19 of Breath vancomycin Allergy Unknown Verified 01/06/21 15:19 ED Review of Systems ROS: Stated complaint: SICKLE CELL Other details as noted in HPI Comment: All other systems reviewed and negative ED Past Medical Hx - Past Medical History Previous Medical History?: Yes Hx Hypertension: Yes Hx Sickle Cell Disease: Yes Hx Arthritis: Yes Hx Asthma: Yes Additional medical history: ANEMIA, multiple port infections. Opioid dependency - Surgical History Past Surgical History?: Yes Hx Cholecystectomy: Yes Additional Surgical History: , port removed June 2014. PICC line left upper arm (11/19/2014). . - Social History Smoking Status: Never Smoker Substance Use Type: None - Medications Home Medications: Home Medications Medication Instructions Recorded Confirmed Last Taken Type Methadone [Dolophine] 20 mg PO BID 03/19/19 03/22/20 08/18/19 History Folic Acid [Folvite] 1 mg PO DAILY #30 tablet 08/23/19 03/22/20 01/29/20 Rx Hydroxyurea 500 mg PO DAILY #30 cap 08/23/19 03/22/20 Unknown Rx amLODIPine 10 mg PO QDAY #30 tablet 08/23/19 03/22/20 01/28/20 Rx cloNIDine [Catapres] 0.2 mg PO BID #60 08/23/19 03/22/20 01/28/20 Rx lisinopriL [Zestril TAB] 40 mg PO QDAY #30 tablet 08/23/19 03/22/20 01/28/20 Rx Albuterol Mdi (or & Nicu Only) 2 puff IH QID PRN #1 inhalation 01/13/20 03/22/20 01/29/20 11:27 Rx [ProAir HFA Inhaler] Percocet 5/325 mg 10 mg PO PRN 01/29/20 03/22/20 01/28/20 History HYDROcodone/APAP 5-325 [[place] 1 - 2 each PO Q6HR PRN #10 tablet 04/05/20 Unknown Rx 5/325] HYDROcodone/APAP 5-325 [[place] 1 - 2 each PO Q6HR PRN #14 tablet 09/09/20 Unknown Rx 5/325] predniSONE [Deltasone] 3 tab PO QDAY 3 Days #9 tab 10/14/20 Unknown Rx HYDROcodone/APAP 5-325 [[place] 1 - 2 each PO Q6HR PRN #14 tablet 11/12/20 Unknown Rx 5/325] Ibuprofen [Motrin 800 MG tab] 800 mg PO Q8HR PRN #20 tablet 11/12/20 Unknown Rx HYDROcodone/APAP 5-325 [[place] 1 - 2 each PO Q6HR PRN #14 tablet 11/22/20 Unknown Rx 5/325] HYDROcodone/APAP 5-325 [[place] 1 - 2 each PO Q6HR PRN #14 tablet 12/25/20 Unknown Rx 5/325] Ibuprofen [Motrin 800 MG tab] 800 mg PO Q8HR PRN #20 tablet 12/25/20 Unknown Rx ED Physical Exam - General Limitations: No Limitations - Other Other exam information: General: No acute distress Head: Atraumatic Eyes: normal appearance ENT: Moist mucous membranes Neck: Normal appearance, no midline tenderness Chest: Clear to auscultation bilaterally CV: Regular rate and rhythm Abdomen: Soft, normal bowel sounds, nontender, nondistended, no rebound or guarding Back: Normal inspection Extremity: Normal inspection, full range of motion Neuro: Alert O x 3, no facial asymmetry, speech clear, no gross motor sensory deficit, no edema, leg asymmetry, or calf tenderness Psych: Appropriate behavior Skin: No rash ED Course Vital Signs 01/29/21 01/29/21 01/29/21 19:23 23:51 23:52 Temperature 98.9 F Pulse Rate 87 89 Respiratory 18 18 18 Rate Blood Pressure 139/67 Blood Pressure 150/70 [Left] O2 Sat by Pulse 94 98 Oximetry ED Medical Decision Making - Lab Data Result diagrams: 01/29/21 19:30 Lab Results 01/29/21 01/29/21 Range/Units 19:30 Unknown WBC 17.3 H (4.5-11.0) K/mm3 RBC 2.41 L (3.65-5.03) M/mm3 Hgb 7.9 L (10.1-14.3) gm/dl Hct 22.5 L (30.3-42.9) % MCV 93 (79-97) fl MCH 33 H (28-32) pg MCHC 35 H (30-34) % RDW 20.5 H (13.2-15.2) % Plt Count 492 H (140-440) K/mm3 Lymph # (Auto) Senior Java Web Application Developer Add Manual Diff Complete Total Counted 100 Seg Neuts % (Manual) 61.0 (40.0-70.0) % Lymphocytes % (Manual) 31.0 (13.4-35.0) % Monocytes % (Manual) 2.0 (0.0-7.3) % Eosinophils % (Manual) 4.0 (0.0-4.3) % Basophils % (Manual) 1.0 (0.0-1.8) % Metamyelocytes % 1.0 % Nucleated RBC % 2.0 H (0.0-0.9) % Seg Neutrophils # Man 10.6 H (1.8-7.7) K/mm3 Band Neutrophils # 0.0 K/mm3 Lymphocytes # (Manual) 5.4 (1.2-5.4) K/mm3 Abs React Lymphs (Man) 0.0 K/mm3 Monocytes # (Manual) 0.3 (0.0-0.8) K/mm3 Eosinophils # (Manual) 0.7 H (0.0-0.4) K/mm3 Basophils # (Manual) 0.2 H (0.0-0.1) K/mm3 Metamyelocytes # 0.2 K/mm3 Myelocytes # 0.0 K/mm3 Promyelocytes # 0.0 K/mm3 Blast Cells # 0.0 K/mm3 WBC Morphology Not Reportable Hypersegmented Neuts Not Reportable Hyposegmented Neuts Not Reportable Hypogranular Neuts Not Reportable Smudge Cells Not Reportable Toxic Granulation Not Reportable Toxic Vacuolation Not Reportable Dohle Bodies Not Reportable Pelger-Huet Anomaly Not Reportable Ariadne Rods Not Reportable Platelet Estimate Consistent w auto Clumped Platelets Not Reportable Plt Clumps, EDTA Not Reportable Large Platelets Rare Giant Platelets Rare Platelet Satelliting Not Reportable Plt Morphology Comment Not Reportable RBC Morphology Not Reportable Dimorphic RBCs Not Reportable Polychromasia Not Reportable Hypochromasia Rare Poikilocytosis Not Reportable Anisocytosis 1+ Microcytosis Few Macrocytosis Not Reportable Spherocytes Not Reportable Pappenheimer Bodies Not Reportable Sickle Cells Few Target Cells Not Reportable Tear Drop Cells Not Reportable Ovalocytes Few Helmet Cells Not Reportable [place] Bodies Not Reportable Roy Rings Not Reportable [place] Cells Not Reportable Bite Cells Not Reportable Crenated Cell Not Reportable Elliptocytes Not Reportable Acanthocytes (Spur) Not Reportable Rouleaux Not Reportable Hemoglobin C Crystals Not Reportable Schistocytes Not Reportable Malaria parasites Not Reportable Percent Retic 8.29 H (0.78-2.58) % Alexis Bodies Not Reportable Hem Pathologist Commnt No HCG, Qual Negative (Negative) - Medical Decision Making 35-year-old female presents to the hospital sickle cell crisis with improvement of pain after IV fluids and narcotic pain medication. She be discharged continue her current pain medication and follow-up with a toe puncher Critical Care Time: No Critical care attestation.: If time is entered above; I have spent that time in minutes in the direct care of this critically ill patient, excluding procedure time. ED Disposition Clinical Impression: Sickle cell crisis Disposition: DC-01 TO HOME OR SELFCARE Is pt being admited?: No Does the pt Need Aspirin: No Condition: Stable Instructions: Hemolytic Anemia Additional Instructions: Continue your current medication as prescribed. Follow-up with your doctor or doctor/clinic provided. Return if symptoms worsen as indicated by your discharge instructions. Referrals: PRIMARY CARE, [Primary Care Provider] - 3-5 Days your, Hematolgist Dr Torres [Other] - 3-5 Days Time of Disposition: 23:46
[2021-01-29 21:09] LABS: Hematocrit 22.5 % (30.3-42.9); Hemoglobin 7.9 gm/dl (10.1-14.3); Mean Corpuscular HGB Conc 35 % (30-34); Mean Corpuscular Volume 93 fl (79-97); Platelet Count 492 K/mm3 (140-440); Red Blood Count 2.41 M/mm3 (3.65-5.03)
[2021-01-29 21:21] LABS: Red Cell Distribution Width 20.5 % (13.2-15.2)
[2021-01-29] MEDS ORDERED: HYDROmorphone 1 MG/1 ML INJ IV ONE (21:42)
[2021-01-29 22:13] LABS: Anisocytosis 1+; Total Cells Counted 100
[2021-01-29 22:14] LABS: Giant Platelets Rare; Large Platelets Rare
[2021-01-29 22:15] LABS: Hypochromasia Rare; Ovalocytes Few; Platelet Estimate Consistent w Auto; Sickle Cells Few
[2021-01-29 23:52] VITALS: BP 150/70
== END 2021-01-30 00:05 | disposition home or self-care (01) ==
LOC: ED 18:51
DX: D57.00 Hb-SS disease with crisis, unspecified (principal); I10 Essential (primary) hypertension; M19.90 Unspecified osteoarthritis, unspecified site; G40.909 Epilepsy, unspecified, not intractable, without status epilepticus; Z98.890 Other specified postprocedural states; Z79.899 Other long term (current) drug therapy; Z88.8 Allergy status to other drugs, medicaments and biological substances
CPT/HCPCS: 36415; 84703; 85007; 85025; 85045; 96361; 96374; 96375; 96376; 99283; J1170; J1200; J1642; J1885; J2405

== ENCOUNTER 2021-02-04 19:48 | Emergency (ER) | payer MEDICAID ==
[2021-02-04 21:07] VITALS: BP 195/93
[2021-02-04] MEDS ORDERED: SODIUM CHLORIDE 0.9% 1000 ML 1,000 ML IV ONE (21:40)
--- NOTE | 2021-02-04 21:42 | Event Note ---
ED Screening Note Date of service: 02/04/21 Time: 21:41 ED Screening Note: 35-year-old female patient with history of sickle cell disease presents to emergency department with complaints of nontraumatic pain in her back, legs, and arms for the last 2 days. Patient states her pain is consistent with prior sickle cell crisis. She has been taking Percocet and methadone at home with limited relief. She attributes her current symptoms to the recent change in the weather. General: Awake, appropriately interactive, no acute distress. Neck: Supple. Full range of motion intact. Cardiovascular: Normal peripheral perfusion. Pulmonary: No respiratory distress. Patient is speaking normally without use of accessory muscles. Skin: No apparent rashes or lesions. Neurological: No facial asymmetry. Speech is clear. Follows commands. Patient is alert and oriented. Musculoskeletal: Moves all four extremities spontaneously with normal range of motion. Psych: Cooperative. Appropriate mood and affect. This initial assessment/diagnostic orders/clinical plan/treatment(s) is/are subject to change based on patients health status, clinical progression and re- assessment by fellow clinical providers in the ED. Further treatment and workup at subsequent clinical providers discretion. Patient/guardian urged not to elope from the ED as their condition may be serious if not clinically assessed and managed.
== END 2021-02-04 23:00 | disposition left against medical advice (07) ==
LOC: ED 19:48
DX: D57.1 Sickle-cell disease without crisis (principal); Z53.21 Procedure and treatment not carried out due to patient leaving prior to being seen by health care provider

== ENCOUNTER 2021-02-05 19:05 | Emergency (ER) | payer MEDICAID ==
[2021-02-05] MEDS ORDERED: diphenhydrAMINE 50 MG/ML VIAL IV ONE ×2 (21:29→22:31)
[2021-02-05] MEDS ORDERED: KETOROLAC 30 MG/1 ML INJ IV ONE (21:29)
[2021-02-05] MEDS ORDERED: ONDANSETRON 4 MG/2 ML INJ IV ONE ×2 (21:29→22:31)
[2021-02-05] MEDS ORDERED: HYDROmorphone 2 MG/1 ML INJ IV ONE ×3 (21:29→23:58)
[2021-02-05] MEDS ORDERED: SODIUM CHLORIDE 0.9% 1000 ML 1,000 ML IV ONE (21:30)
--- NOTE | 2021-02-05 21:31 | Emergency Department Report ---
ED General Adult HPI - General Chief complaint: Sickle Cell Crisis Stated complaint: SICKLE CELL PUI?: No Time Seen by Provider: 02/05/21 21:26 Source: patient Mode of arrival: Ambulatory Limitations: No Limitations - History of Present Illness Initial comments: Patient is a 35-year-old female that presents emergency room with complaints of sickle cell pain. But states the pain is in her arms, back and legs. Patient dates his pain well for 2 days. Patient states she was here yesterday but was never seen. Patient states she left because the wait was so long. Patient states she came back today because her symptoms are worsening. Patient states her pain is severe. Patient dates the pain is a 10 out of 10. He states the pain is better with rest and worse with movement and palpation. Patient denies swelling. Patient denies chest pain. Patient denies shortness of breath. Patient denies recent travel. Patient denies recent international travel. Patient denies exposure to the novel coronavirus. Patient denies sick contacts. Patient denies fever and chills. Patient denies cough. Patient denies diarrhe a. Patient denies coming in contact with anybody with symptoms of the novel coronavirus.. -: Sudden Severity scale (0 -10): 10 Quality: stabbing, sharp Consistency: constant Improves with: rest Worsens with: movement Associated Symptoms: denies: confusion, chest pain, cough, diaphoresis, fever/chills, headaches, loss of appetite, malaise, nausea/vomiting, rash, seizure, shortness of breath, syncope, weakness Treatments Prior to Arrival: none - Related Data Home Medications Medication Instructions Recorded Confirmed Last Taken Methadone [Dolophine] 20 mg PO BID 03/19/19 03/22/20 08/18/19 Percocet 5/325 mg 10 mg PO PRN 01/29/20 03/22/20 01/28/20 Previous Rx's Medication Instructions Recorded Last Taken Type Folic Acid [Folvite] 1 mg PO DAILY #30 tablet 08/23/19 01/29/20 Rx Hydroxyurea 500 mg PO DAILY #30 cap 08/23/19 Unknown Rx amLODIPine 10 mg PO QDAY #30 tablet 08/23/19 01/28/20 Rx cloNIDine [Catapres] 0.2 mg PO BID #60 08/23/19 01/28/20 Rx lisinopriL [Zestril TAB] 40 mg PO QDAY #30 tablet 08/23/19 01/28/20 Rx Albuterol Mdi (or & Nicu Only) 2 puff IH QID PRN #1 inhalation 01/13/20 01/29/20 11:27 Rx [ProAir HFA Inhaler] HYDROcodone/APAP 5-325 [[place] 1 - 2 each PO Q6HR PRN #10 tablet 04/05/20 Unknown Rx 5/325] HYDROcodone/APAP 5-325 [[place] 1 - 2 each PO Q6HR PRN #14 tablet 09/09/20 Unknown Rx 5/325] predniSONE [Deltasone] 3 tab PO QDAY 3 Days #9 tab 10/14/20 Unknown Rx HYDROcodone/APAP 5-325 [[place] 1 - 2 each PO Q6HR PRN #14 tablet 11/12/20 Unknown Rx 5/325] Ibuprofen [Motrin 800 MG tab] 800 mg PO Q8HR PRN #20 tablet 11/12/20 Unknown Rx HYDROcodone/APAP 5-325 [[place] 1 - 2 each PO Q6HR PRN #14 tablet 11/22/20 Unknown Rx 5/325] HYDROcodone/APAP 5-325 [[place] 1 - 2 each PO Q6HR PRN #14 tablet 12/25/20 Unknown Rx 5/325] Ibuprofen [Motrin 800 MG tab] 800 mg PO Q8HR PRN #20 tablet 12/25/20 Unknown Rx Allergies Allergy/AdvReac Type Severity Reaction Status Date / Time morphine Allergy Shortness Verified 01/06/21 15:19 of Breath vancomycin Allergy Unknown Verified 01/06/21 15:19 ED Review of Systems ROS: Stated complaint: SICKLE CELL Other details as noted in HPI Constitutional: denies: chills, fever Eyes: denies: eye pain, eye discharge, vision change ENT: denies: ear pain, throat pain Respiratory: denies: cough, shortness of breath, wheezing Cardiovascular: denies: chest pain, palpitations Endocrine: no symptoms reported Gastrointestinal: denies: abdominal pain, nausea, diarrhea Genitourinary: denies: urgency, dysuria, discharge Musculoskeletal: as per HPI, back pain. denies: joint swelling, arthralgia Skin: denies: rash, lesions Neurological: denies: headache, weakness, paresthesias Psychiatric: denies: anxiety, depression Hematological/Lymphatic: denies: easy bleeding, easy bruising ED Past Medical Hx - Past Medical History Previous Medical History?: Yes Hx Hypertension: Yes Hx Sickle Cell Disease: Yes Hx Arthritis: Yes Hx Asthma: Yes Additional medical history: ANEMIA, multiple port infections. Opioid dependency - Surgical History Past Surgical History?: Yes Hx Cholecystectomy: Yes Additional Surgical History: , port removed June 2014. PICC line left upper arm (11/19/2014). . - Family History Family history: no significant - Social History Smoking Status: Never Smoker Substance Use Type: None - Medications Home Medications: Home Medications Medication Instructions Recorded Confirmed Last Taken Type Methadone [Dolophine] 20 mg PO BID 03/19/19 03/22/20 08/18/19 History Folic Acid [Folvite] 1 mg PO DAILY #30 tablet 08/23/19 03/22/20 01/29/20 Rx Hydroxyurea 500 mg PO DAILY #30 cap 08/23/19 03/22/20 Unknown Rx amLODIPine 10 mg PO QDAY #30 tablet 08/23/19 03/22/20 01/28/20 Rx cloNIDine [Catapres] 0.2 mg PO BID #60 08/23/19 03/22/20 01/28/20 Rx lisinopriL [Zestril TAB] 40 mg PO QDAY #30 tablet 08/23/19 03/22/20 01/28/20 Rx Albuterol Mdi (or & Nicu Only) 2 puff IH QID PRN #1 inhalation 01/13/20 03/22/20 01/29/20 11:27 Rx [ProAir HFA Inhaler] Percocet 5/325 mg 10 mg PO PRN 01/29/20 03/22/20 01/28/20 History HYDROcodone/APAP 5-325 [[place] 1 - 2 each PO Q6HR PRN #10 tablet 04/05/20 Unknown Rx 5/325] HYDROcodone/APAP 5-325 [[place] 1 - 2 each PO Q6HR PRN #14 tablet 09/09/20 Unknown Rx 5/325] predniSONE [Deltasone] 3 tab PO QDAY 3 Days #9 tab 10/14/20 Unknown Rx HYDROcodone/APAP 5-325 [[place] 1 - 2 each PO Q6HR PRN #14 tablet 11/12/20 Unknown Rx 5/325] Ibuprofen [Motrin 800 MG tab] 800 mg PO Q8HR PRN #20 tablet 11/12/20 Unknown Rx HYDROcodone/APAP 5-325 [[place] 1 - 2 each PO Q6HR PRN #14 tablet 11/22/20 Unknown Rx 5/325] HYDROcodone/APAP 5-325 [[place] 1 - 2 each PO Q6HR PRN #14 tablet 12/25/20 Unknown Rx 5/325] Ibuprofen [Motrin 800 MG tab] 800 mg PO Q8HR PRN #20 tablet 12/25/20 Unknown Rx ED Physical Exam - General Limitations: No Limitations General appearance: alert, in no apparent distress - Head Head exam: Present: atraumatic, normocephalic - Eye Eye exam: Present: normal appearance - ENT ENT exam: Present: mucous membranes moist - Neck Neck exam: Present: normal inspection - Respiratory Respiratory exam: Present: normal lung sounds bilaterally. Absent: respiratory distress - Cardiovascular Cardiovascular Exam: Present: regular rate, normal rhythm. Absent: systolic murmur, diastolic murmur, rubs, gallop - GI/Abdominal GI/Abdominal exam: Present: soft, normal bowel sounds - Extremities Exam Extremities exam: Present: normal inspection - Back Exam Back exam: Present: normal inspection - Neurological Exam Neurological exam: Present: alert, oriented X3 - Psychiatric Psychiatric exam: Present: normal affect, normal mood - Skin Skin exam: Present: warm, dry, intact, normal color. Absent: rash ED Course Vital Signs 02/05/21 19:24 Temperature 99.1 F Pulse Rate 86 Respiratory 18 Rate Blood Pressure 192/91 O2 Sat by Pulse 100 Oximetry - Reevaluation(s) Reevaluation #1: Patient's pain is slightly better but is starting to increase again. Patient will be given another dose of Dilaudid. 02/05/21 22:29 Reevaluation #2: Patient states feeling better but the pain is starting to increase. Patient will be given 1 more dose and prepare for discharge. Patient denies nausea vomiting. Patient denies itching. I discussed all results and clinical findings with patient. I discussed plan of care with patient. Patient agrees with plan of care. Patient is stable for discharge. Patient will be discharged home. Patient given discharge instructions. Patient voiced understanding of discharge instructions. 02/05/21 23:58 ED Medical Decision Making - Lab Data Result diagrams: 02/05/21 21:30 02/05/21 21:30 - Medical Decision Making Patient is a 35-year-old known sickle cell patient that presents emergency room with complaints of back pain and lower extremity pain and arm pain. Patient pain been going for 48 hours. The nurse accessed the patient's left chest port. Patient given fluids, Benadryl, Zofran and Dilaudid. Patient responded well to treatment. Patient's pain improved and essentially became controlled. Patient presented to the emergency room with 10 out of 10 pain and is leaving the emergency room with 3 out of 10 pain. Patient states she has her home pain medications and sickle cell medications at home. Patient states she does not need a refill of medications. Patient had labs done in the ER and are consistent with elevated reticulocyte count and sickle cell crisis. Patient also found to be anemic. Patient's chemistries unremarkable. Patient is stable for discharge. Patient discharged home. Critical care time documented due to the multiple reassessments, prolonged time at the bedside, interpretation of diagnostics and labs. - Differential Diagnosis Back pain, leg pain, sickle cell crisis, Critical Care Time: Yes Critical care time in (mins) excluding proc time.: 35 Critical care attestation.: If time is entered above; I have spent that time in minutes in the direct care of this critically ill patient, excluding procedure time. Critical Care Time: 35 minutes ED Disposition Clinical Impression: Anemia, sickle cell with crisis, Sickle cell pain crisis Disposition: TO HOME OR SELFCARE Is pt being admited?: No Does the pt Need Aspirin: No Condition: Stable Instructions: Sickle Cell Testing, Hemolytic Anemia Additional Instructions: Patient to follow-up with primary care in 2 to 3 days. Patient to follow-up with manager body in 2 to 3 days. Patient to rest. Patient to increase water. Patient to avoid strenuous exercise or heavy lifting until cleared by hematologi st and primary care.. Patient to take Tylenol or ibuprofen as needed for pain. Patient to continue all medication. Patient to return to the ER if condition worsens, changes or new symptoms arise. Referrals: FRANK ACOSTA MD [Primary Care Provider] - 2-3 Days Time of Disposition: 00:01
[2021-02-05 21:40] LABS: Hematocrit 26.3 % (30.3-42.9); Hemoglobin 8.8 gm/dl (10.1-14.3); Mean Corpuscular HGB Conc 33 % (30-34); Mean Corpuscular Volume 99 fl (79-97); Platelet Count 358 K/mm3 (140-440); Red Blood Count 2.66 M/mm3 (3.65-5.03)
[2021-02-05 21:41] LABS: Red Cell Distribution Width 22.9 % (13.2-15.2)
[2021-02-05] MEDS ORDERED: D5W/0.2% NACL 1,000 ML IV SCH (22:00)
[2021-02-05 22:01] LABS: Alanine Aminotransferase 66 units/L (7-56); Albumin 3.8 g/dL (3.9-5); BUN/Creatinine Ratio 17; Blood Urea Nitrogen 17 mg/dL (7-17); Calcium 9.1 mg/dL (8.4-10.2); Hemolysis Index 4
[2021-02-05 22:32] LABS: Anisocytosis 1+; Band Neutrophils # (Manual) 0.2 K/mm3; Total Cells Counted 100
[2021-02-05 22:33] LABS: Giant Platelets Rare; Large Platelets Rare; Ovalocytes Few; Sickle Cells Few
[2021-02-05 22:34] LABS: Macrocytosis Few; Platelet Estimate Consistent w Auto
[2021-02-06 00:50] VITALS: BP 182/101
== END 2021-02-06 00:49 | disposition home or self-care (01) ==
LOC: ED 19:05
DX: D57.00 Hb-SS disease with crisis, unspecified (principal); I10 Essential (primary) hypertension; M19.91 Primary osteoarthritis, unspecified site; J45.909 Unspecified asthma, uncomplicated; Z90.49 Acquired absence of other specified parts of digestive tract; Z98.890 Other specified postprocedural states; Z79.1 Long term (current) use of non-steroidal anti-inflammatories (NSAID); Z79.899 Other long term (current) drug therapy; Z88.8 Allergy status to other drugs, medicaments and biological substances
CPT/HCPCS: 36415; 80053; 85007; 85025; 85045; 96361; 96374; 96375; 96376; 99291; J1170; J1200; J1642; J1885; J2405; J7030

== ENCOUNTER 2021-02-18 19:25 | Emergency (ER) | payer MEDICAID ==
--- NOTE | 2021-02-18 20:23 | Event Note ---
ED Screening Note ED Screening Note: sickle cell pain crisis since yesterday This initial assessment/diagnostic orders/clinical plan/treatment(s) is/are subject to change based on patients health status, clinical progression and re- assessment by fellow clinical providers in the ED. Further treatment and workup at subsequent clinical providers discretion. Patient/guardian urged not to elope from the ED as their condition may be serious if not clinically assessed and managed. Initial orders include: pt declines labs until her port can be accessed MAIN ED eval
[2021-02-18] MEDS ORDERED: IPRATROPIUM/ALBUTEROL SULFATE 3 ML AMPUL.NEB IH ONE ×2 (23:21)
== END 2021-02-19 03:00 | disposition left against medical advice (07) ==
LOC: ED 19:25
DX: D57.00 Hb-SS disease with crisis, unspecified (principal); Z53.21 Procedure and treatment not carried out due to patient leaving prior to being seen by health care provider

== ENCOUNTER 2021-02-19 07:46 | Emergency (ER) | payer MEDICAID ==
--- NOTE | 2021-02-19 09:12 | Event Note ---
ED Screening Note Date of service: 02/19/21 Time: 09:12 ED Screening Note: 35-year-old female who is well-known to this ER presents to the ER today with complaints of sickle cell pain. Patient states that her sickle cell pain flareup this past . She states that is in her back, arms and legs. It is the typical location of her pain. She does have Percocet at home but she states that not helping. She denies any chest pain, shortness of breath, nausea, vomiting, diarrhea, abdominal pain, fever chills or urinary symptoms. She is currently on her menstrual cycle. This initial assessment/diagnostic orders/clinical plan/treatment(s) is/are subject to change based on patients health status, clinical progression and re- assessment by fellow clinical providers in the ED. Further treatment and workup at subsequent clinical providers discretion. Patient/guardian urged not to elope from the ED as their condition may be serious if not clinically assessed and managed. Initial orders include: CBC, CMP, reticulocyte count, hCG
[2021-02-19] MEDS ORDERED: ONDANSETRON 4 MG/2 ML INJ IV ONE (09:49)
[2021-02-19] MEDS ORDERED: diphenhydrAMINE 50 MG/ML VIAL IV ONE (09:49)
[2021-02-19] MEDS ORDERED: KETOROLAC 30 MG/1 ML INJ IV ONE (09:49)
[2021-02-19] MEDS ORDERED: HYDROmorphone 1 MG/1 ML INJ IV ONE ×4 (09:49→13:25)
[2021-02-19] MEDS ORDERED: cloNIDine 0.2 MG TAB PO ONE (09:51)
--- NOTE | 2021-02-19 09:55 | Emergency Department Report ---
HPI - General Chief Complaint: Sickle Cell Crisis Time Seen by Provider: 02/19/21 09:46 - HPI HPI: Room 3 The patient is a 35-year-old female present with a chief complaint of sickle cell pain crisis. Patient states his symptoms began yesterday with pain in her back bilateral upper extremities and bilateral lower extremities consistent with sickle cell pain crisis. Patient gives her pain a score of 10/10 ED Past Medical Hx - Past Medical History Hx Hypertension: Yes Hx Sickle Cell Disease: Yes Hx Arthritis: Yes Hx Asthma: Yes Additional medical history: ANEMIA, multiple port infections. Opioid dependency - Surgical History Hx Cholecystectomy: Yes Additional Surgical History: , port removed June 2014. PICC line left upper arm (11/19/2014). . - Family History Family history: no significant - Social History Smoking Status: Never Smoker Substance Use Type: None - Medications Home Medications: Home Medications Medication Instructions Recorded Confirmed Last Taken Type Methadone [Dolophine] 20 mg PO BID 03/19/19 03/22/20 08/18/19 History Folic Acid [Folvite] 1 mg PO DAILY #30 tablet 08/23/19 03/22/20 01/29/20 Rx Hydroxyurea 500 mg PO DAILY #30 cap 08/23/19 03/22/20 Unknown Rx amLODIPine 10 mg PO QDAY #30 tablet 08/23/19 03/22/20 01/28/20 Rx cloNIDine [Catapres] 0.2 mg PO BID #60 08/23/19 03/22/20 01/28/20 Rx lisinopriL [Zestril TAB] 40 mg PO QDAY #30 tablet 08/23/19 03/22/20 01/28/20 Rx Albuterol Mdi (or & Nicu Only) 2 puff IH QID PRN #1 inhalation 01/13/20 03/22/20 01/29/20 11:27 Rx [ProAir HFA Inhaler] Percocet 5/325 mg 10 mg PO PRN 01/29/20 03/22/20 01/28/20 History HYDROcodone/APAP 5-325 [[place] 1 - 2 each PO Q6HR PRN #14 tablet 09/09/20 Unknown Rx 5/325] predniSONE [Deltasone] 3 tab PO QDAY 3 Days #9 tab 10/14/20 Unknown Rx HYDROcodone/APAP 5-325 [[place] 1 - 2 each PO Q6HR PRN #14 tablet 11/12/20 Unknown Rx 5/325] Ibuprofen [Motrin 800 MG tab] 800 mg PO Q8HR PRN #20 tablet 11/12/20 Unknown Rx HYDROcodone/APAP 5-325 [[place] 1 - 2 each PO Q6HR PRN #14 tablet 11/22/20 Unknown Rx 5/325] HYDROcodone/APAP 5-325 [[place] 1 - 2 each PO Q6HR PRN #14 tablet 12/25/20 Unknown Rx 5/325] Ibuprofen [Motrin 800 MG tab] 800 mg PO Q8HR PRN #20 tablet 12/25/20 Unknown Rx HYDROcodone/APAP 5-325 [[place] 1 - 2 each PO Q6HR PRN #14 tablet 02/19/21 Unknown Rx 5-325 mg TAB] ED Review of Systems ROS: Stated complaint: SICKLE CELL CRISIS Other details as noted in HPI Constitutional: no symptoms reported Eyes: denies: eye pain ENT: denies: throat pain Respiratory: no symptoms reported Cardiovascular: denies: chest pain Endocrine: no symptoms reported Gastrointestinal: denies: abdominal pain Genitourinary: denies: dysuria Musculoskeletal: back pain Neurological: denies: headache Hematological/Lymphatic: other (Sickle cell pain crisis) Physical Exam - Physical Exam Vital Signs: Vital Signs 02/19/21 07:48 Temperature 98.1 F Pulse Rate 90 Respiratory 18 Rate Blood Pressure 221/117 O2 Sat by Pulse 92 Oximetry Physical Exam: GENERAL: The patient is well-developed well-nourished female lying on stretcher appearing to be in mild discomfort HEENT: Normocephalic. Atraumatic. Extraocular motions are intact. Patient has moist mucous membranes. NECK: Supple. Trachea midline CHEST/LUNGS: Clear to auscultation. There is no respiratory distress noted. HEART/CARDIOVASCULAR: Regular. There is no tachycardia. There is no gallop rub or murmur. ABDOMEN: Abdomen is soft, nontender. Patient has normal bowel sounds. There is no abdominal distention. SKIN: There is no rash. There is no edema. There is no diaphoresis. NEURO: The patient is awake, alert, and oriented. The patient is cooperative. The patient has no focal neurologic deficits. The patient has normal speech MUSCULOSKELETAL: There is no evidence of acute injury. ED Course Vital Signs 02/19/21 07:48 Temperature 98.1 F Pulse Rate 90 Respiratory 18 Rate Blood Pressure 221/117 O2 Sat by Pulse 92 Oximetry ED Medical Decision Making - Lab Data Result diagrams: 02/19/21 12:07 02/19/21 12:07 Laboratory Tests 02/19/21 02/19/21 02/19/21 12:07 12:07 12:07 WBC 12.5 H RBC 2.22 L Hgb 7.5 L Hct 22.9 L MCV 103 H MCH 34 H MCHC 33 RDW 25.5 H Plt Count 379 Percent Retic 17.59 H Sodium 136 L Potassium 3.7 Chloride 101.5 Carbon Dioxide 24 Anion Gap 14 BUN 12 Creatinine 1.0 Estimated GFR > 60 BUN/Creatinine Ratio 12 Glucose 120 H Calcium 8.6 Magnesium 1.60 L Total Bilirubin 2.10 H AST 26 ALT 22 Alkaline Phosphatase 180 H Total Protein 6.4 Albumin 3.1 L Albumin/Globulin Ratio 0.9 HCG, Qual Negative - Differential Diagnosis Sickle cell pain crisis Critical care attestation.: If time is entered above; I have spent that time in minutes in the direct care of this critically ill patient, excluding procedure time. ED Disposition Clinical Impression: Sickle cell pain crisis, Hypomagnesemia Disposition: DC-01 TO HOME OR SELFCARE Is pt being admited?: No Does the pt Need Aspirin: No Condition: Stable Instructions: Hypomagnesemia Additional Instructions: Return to the emergency department should you develop worsening symptoms, inability to tolerate food or liquids, high fever or any other concerns Prescriptions: HYDROcodone/APAP 5-325 [[place] 5-325 mg TAB] 1 - 2 each PO Q6HR PRN #14 tablet PRN Reason: Pain Referrals: PRIMARY CARE, [Primary Care Provider] - 3-5 Days Time of Disposition: 13:36
[2021-02-19] MEDS ORDERED: D5W/0.2% NACL 1,000 ML IV SCH (10:00)
[2021-02-19 13:03] LABS: Hematocrit 22.9 % (30.3-42.9); Hemoglobin 7.5 gm/dl (10.1-14.3); Mean Corpuscular HGB Conc 33 % (30-34); Mean Corpuscular Volume 103 fl (79-97); Platelet Count 379 K/mm3 (140-440); Red Blood Count 2.22 M/mm3 (3.65-5.03); Red Cell Distribution Width 25.5 % (13.2-15.2)
[2021-02-19 13:04] LABS: Alanine Aminotransferase 22 units/L (7-56); Albumin 3.1 g/dL (3.9-5); BUN/Creatinine Ratio 12; Blood Urea Nitrogen 12 mg/dL (7-17); Calcium 8.6 mg/dL (8.4-10.2); Hemolysis Index 13
[2021-02-19] MEDS ORDERED: MAGNESIUM SULFATE 1 GM in SODIUM CHLORIDE 0.9% 50 ML IV ONE (13:33)
[2021-02-19 13:48] LABS: Target Cells 2+; Total Cells Counted 100
[2021-02-19 13:49] LABS: Giant Platelets Few; Sickle Cells 2+
[2021-02-19 13:50] LABS: Platelet Estimate Consistent w Auto
[2021-02-19 15:41] VITALS: BP 181/93
== END 2021-02-19 15:20 | disposition home or self-care (01) ==
LOC: ED 07:46
DX: D57.00 Hb-SS disease with crisis, unspecified (principal); E83.42 Hypomagnesemia; I10 Essential (primary) hypertension; M19.91 Primary osteoarthritis, unspecified site; J45.909 Unspecified asthma, uncomplicated; Z90.49 Acquired absence of other specified parts of digestive tract; Z98.890 Other specified postprocedural states; Z79.1 Long term (current) use of non-steroidal anti-inflammatories (NSAID); Z79.899 Other long term (current) drug therapy; Z88.8 Allergy status to other drugs, medicaments and biological substances
CPT/HCPCS: 36415; 80053; 83735; 84703; 85007; 85025; 85045; 96361; 96365; 96375; 96376; 99283; J1170; J1200; J1642; J1885; J2405; J3475

== ENCOUNTER 2021-02-27 11:38 | Emergency (ER) | payer MEDICAID ==
[2021-02-27] MEDS ORDERED: ONDANSETRON 4 MG ODT TAB PO/SL ONE (12:15)
[2021-02-27] MEDS ORDERED: HYDROmorphone 1 MG/1 ML INJ IV ONE (12:15)
[2021-02-27] MEDS ORDERED: SODIUM CHLORIDE 0.9% 1000 ML 1,000 ML IV ONE (12:15)
--- NOTE | 2021-02-27 12:22 | Emergency Department Report ---
ED General Adult HPI - General Chief complaint: Sickle Cell Crisis Stated complaint: SICKLE CELL Time Seen by Provider: 02/27/21 12:12 Source: patient Mode of arrival: Ambulatory Limitations: No Limitations - History of Present Illness Initial comments: Patient is a 35 years old female with history of sickle cell disease. Patient presented to the ER complaining of generalized body pain especially in the lower extremities. Patient denied any fever or chills. No chest pain or shortness of breath. Patient also denied any nausea or vomiting. - Related Data Home Medications Medication Instructions Recorded Confirmed Last Taken Methadone [Dolophine] 20 mg PO BID 03/19/19 03/22/20 08/18/19 Percocet 5/325 mg 10 mg PO PRN 01/29/20 03/22/20 01/28/20 Previous Rx's Medication Instructions Recorded Last Taken Type Folic Acid [Folvite] 1 mg PO DAILY #30 tablet 08/23/19 01/29/20 Rx Hydroxyurea 500 mg PO DAILY #30 cap 08/23/19 Unknown Rx amLODIPine 10 mg PO QDAY #30 tablet 08/23/19 01/28/20 Rx cloNIDine [Catapres] 0.2 mg PO BID #60 08/23/19 01/28/20 Rx lisinopriL [Zestril TAB] 40 mg PO QDAY #30 tablet 08/23/19 01/28/20 Rx Albuterol Mdi (or & Nicu Only) 2 puff IH QID PRN #1 inhalation 01/13/20 01/29/20 11:27 Rx [ProAir HFA Inhaler] HYDROcodone/APAP 5-325 [[place] 1 - 2 each PO Q6HR PRN #14 tablet 09/09/20 Unknown Rx 5/325] predniSONE [Deltasone] 3 tab PO QDAY 3 Days #9 tab 10/14/20 Unknown Rx HYDROcodone/APAP 5-325 [[place] 1 - 2 each PO Q6HR PRN #14 tablet 11/12/20 Unknown Rx 5/325] Ibuprofen [Motrin 800 MG tab] 800 mg PO Q8HR PRN #20 tablet 11/12/20 Unknown Rx HYDROcodone/APAP 5-325 [[place] 1 - 2 each PO Q6HR PRN #14 tablet 11/22/20 Unknown Rx 5/325] HYDROcodone/APAP 5-325 [[place] 1 - 2 each PO Q6HR PRN #14 tablet 12/25/20 Unknown Rx 5/325] Ibuprofen [Motrin 800 MG tab] 800 mg PO Q8HR PRN #20 tablet 12/25/20 Unknown Rx HYDROcodone/APAP 5-325 [[place] 1 - 2 each PO Q6HR PRN #14 tablet 02/19/21 Unknown Rx 5-325 mg TAB] Allergies Allergy/AdvReac Type Severity Reaction Status Date / Time morphine Allergy Shortness Verified 02/19/21 07:53 of Breath vancomycin Allergy Unknown Verified 02/19/21 07:53 ED Review of Systems ROS: Stated complaint: SICKLE CELL Other details as noted in HPI Comment: All other systems reviewed and negative Constitutional: denies: chills, fever Respiratory: denies: cough, shortness of breath, SOB with exertion Cardiovascular: denies: chest pain Gastrointestinal: denies: abdominal pain, nausea, vomiting Musculoskeletal: back pain, arthralgia, myalgia Neurological: denies: headache, weakness ED Past Medical Hx - Past Medical History Previous Medical History?: Yes Hx Hypertension: Yes Hx Sickle Cell Disease: Yes Hx Arthritis: Yes Hx Asthma: Yes Additional medical history: ANEMIA, multiple port infections. Opioid dependency - Surgical History Past Surgical History?: Yes Hx Cholecystectomy: Yes Additional Surgical History: , port removed June 2014. PICC line left upper arm (11/19/2014). . - Social History Smoking Status: Never Smoker Substance Use Type: Prescribed - Medications Home Medications: Home Medications Medication Instructions Recorded Confirmed Last Taken Type Methadone [Dolophine] 20 mg PO BID 03/19/19 03/22/20 08/18/19 History Folic Acid [Folvite] 1 mg PO DAILY #30 tablet 08/23/19 03/22/20 01/29/20 Rx Hydroxyurea 500 mg PO DAILY #30 cap 08/23/19 03/22/20 Unknown Rx amLODIPine 10 mg PO QDAY #30 tablet 08/23/19 03/22/20 01/28/20 Rx cloNIDine [Catapres] 0.2 mg PO BID #60 08/23/19 03/22/20 01/28/20 Rx lisinopriL [Zestril TAB] 40 mg PO QDAY #30 tablet 08/23/19 03/22/20 01/28/20 Rx Albuterol Mdi (or & Nicu Only) 2 puff IH QID PRN #1 inhalation 01/13/20 03/22/20 01/29/20 11:27 Rx [ProAir HFA Inhaler] Percocet 5/325 mg 10 mg PO PRN 01/29/20 03/22/20 01/28/20 History HYDROcodone/APAP 5-325 [[place] 1 - 2 each PO Q6HR PRN #14 tablet 09/09/20 Unknown Rx 5/325] predniSONE [Deltasone] 3 tab PO QDAY 3 Days #9 tab 10/14/20 Unknown Rx HYDROcodone/APAP 5-325 [[place] 1 - 2 each PO Q6HR PRN #14 tablet 11/12/20 Unknown Rx 5/325] Ibuprofen [Motrin 800 MG tab] 800 mg PO Q8HR PRN #20 tablet 11/12/20 Unknown Rx HYDROcodone/APAP 5-325 [[place] 1 - 2 each PO Q6HR PRN #14 tablet 11/22/20 Unknown Rx 5/325] HYDROcodone/APAP 5-325 [[place] 1 - 2 each PO Q6HR PRN #14 tablet 12/25/20 Unknown Rx 5/325] Ibuprofen [Motrin 800 MG tab] 800 mg PO Q8HR PRN #20 tablet 12/25/20 Unknown Rx HYDROcodone/APAP 5-325 [[place] 1 - 2 each PO Q6HR PRN #14 tablet 02/19/21 Unknown Rx 5-325 mg TAB] ED Physical Exam - General Limitations: No Limitations General appearance: alert, in no apparent distress - Head Head exam: Present: atraumatic, normocephalic, normal inspection - Eye Eye exam: Present: normal appearance, PERRL - ENT ENT exam: Present: normal exam, normal orophraynx, mucous membranes moist - Neck Neck exam: Present: normal inspection, full ROM. Absent: tenderness, meningismus - Respiratory Respiratory exam: Present: normal lung sounds bilaterally - Cardiovascular Cardiovascular Exam: Present: regular rate, normal rhythm, normal heart sounds - GI/Abdominal GI/Abdominal exam: Present: soft, normal bowel sounds. Absent: distended, tenderness, guarding, rebound, rigid, organomegaly, mass, bruit, pulsatile mass, hernia - Extremities Exam Extremities exam: Present: normal inspection, full ROM, normal capillary refill. Absent: pedal edema, calf tenderness - Back Exam Back exam: Present: normal inspection, full ROM. Absent: CVA tenderness (R), CVA tenderness (L) - Neurological Exam Neurological exam: Present: alert, oriented X3, CN II-XII intact - Psychiatric Psychiatric exam: Present: normal mood - Skin Skin exam: Present: warm, intact, normal color ED Course Vital Signs 02/27/21 02/27/21 02/27/21 11:44 13:04 14:14 Temperature 99.1 F Pulse Rate 98 H Respiratory 16 16 Rate Blood Pressure 193/92 Blood Pressure 198/94 [Right] ED Medical Decision Making - Lab Data Result diagrams: 02/27/21 13:00 02/27/21 13:00 - Radiology Data Radiology results: report reviewed - Medical Decision Making Patient is a 35 years old female with history of sickle cell disease. Patient presented to the ER complaining of generalized body pain especially in the lower extremities. Patient denied any fever or chills. No chest pain or shortness of breath. Patient also denied any nausea or vomiting. Patient received normal saline and multiple pain medication. Labs reviewed and showed chronic elevation of reticulocyte count and also leukocytosis. Patient stated that she is feeling better. Patient advised to follow-up with her primary care physician in the next 2 to 3 days and to return to the ER if she develop any symptoms. Critical care attestation.: If time is entered above; I have spent that time in minutes in the direct care of this critically ill patient, excluding procedure time. ED Disposition Clinical Impression: Sickle cell crisis Disposition: DC-01 TO HOME OR SELFCARE Is pt being admited?: No Condition: Stable Referrals: PRIMARY CARE, [Primary Care Provider] - 3-5 Days
[2021-02-27] MEDS ORDERED: diphenhydrAMINE 50 MG/ML VIAL ONE (12:52)
--- NOTE | 2021-02-27 13:03 | XRay Report ---
. XR chest 1V ap INDICATION / CLINICAL INFORMATION: Abdominal Pain COMPARISON: 12/16/2020 FINDINGS: SUPPORT DEVICES: Unchanged. HEART / MEDIASTINUM: Prominent cardiac silhouette is unchanged LUNGS / PLEURA: Pulmonary vascular congestion. Peribronchial thickening. Costophrenic sulci are diffi cult to appreciate but there is no pleural stripe thickening. No pneumothorax. ADDITIONAL FINDINGS: No significant additional findings. IMPRESSION: 1. Cardiomegaly with interstitial edema. Signer Name: Skyler Mcgill MD Signed: 02/27/2021 12:59 PM Workstation Name: [id number]
[2021-02-27] MEDS: diphenhydrAMINE 50 MG/ML VIAL IV ONE ×2 (13:04→14:58)
[2021-02-27 13:26] LABS: Hematocrit 23.6 % (30.3-42.9); Hemoglobin 7.4 gm/dl (10.1-14.3); Mean Corpuscular HGB Conc 32 % (30-34); Mean Corpuscular Volume 106 fl (79-97); Platelet Count 396 K/mm3 (140-440); Red Blood Count 2.22 M/mm3 (3.65-5.03)
[2021-02-27 13:32] LABS: Red Cell Distribution Width 26.3 % (13.2-15.2)
[2021-02-27 13:34] LABS: Calcium 8.3 mg/dL (8.4-10.2)
[2021-02-27] MEDS: HYDROmorphone 1 MG/1 ML INJ IV ONE ×2 (14:13→14:58)
[2021-02-27 15:23] VITALS: BP 184/92
[2021-02-27 15:47] LABS: Band Neutrophils # (Manual) 0.4 K/mm3; Total Cells Counted 100
[2021-02-27 15:49] LABS: Sickle Cells Few
[2021-02-27 15:50] LABS: Hypochromasia Rare
[2021-02-27 15:51] LABS: Ovalocytes Few
[2021-02-27 15:52] LABS: Platelet Estimate Consistent w Auto
== END 2021-02-27 15:23 | disposition home or self-care (01) ==
LOC: ED 11:38
DX: D57.00 Hb-SS disease with crisis, unspecified (principal); I10 Essential (primary) hypertension; M19.91 Primary osteoarthritis, unspecified site; J45.909 Unspecified asthma, uncomplicated; Z90.49 Acquired absence of other specified parts of digestive tract; Z98.890 Other specified postprocedural states; Z79.1 Long term (current) use of non-steroidal anti-inflammatories (NSAID); Z79.899 Other long term (current) drug therapy; Z88.8 Allergy status to other drugs, medicaments and biological substances
CPT/HCPCS: 36415; 71045; 80048; 85007; 85025; 85045; 96361; 96374; 96375; 96376; 99284; J1170; J1200; J1642; J7030; Q0162